=== PATIENT | male | born 1935 | race Caucasian/White ===

== ENCOUNTER → 2017-04-19 | Day surgery (SDC) | payer OTHER ==
[2017-03-10 13:16] VITALS: Ht 177.8 cm; Wt 84.1 kg
[~2017-04-19] VITALS: Ht 177.8 cm; Wt 84.1 kg
[~2017-04-19] MED LIST: 500ML BSS 0.3ML EPI 1:1000PF IRRIG ONE; ACETAMINOPHEN 325 MG TAB PO PRN; AMVISC PLUS 0.8ML SYRINGE INT OCU ONE; ATROPINE SULFATE 0.1 MG/ML 5ML SYR IV PRN; BSS FLUSH ONE; EpHEDrine SULFATE INJ 50 MG/ML AMP IV PRN; EpINEphrine INJ 1MG/ML AMP 1 MG/ML AMP ONE; LACTATED RINGER'S 1000ML 500 ML IV SCH; LIDOCAINE 3.5% OPH GEL PER APPLICATION CHARGE ONE; LIDOCAINE HCL 1% MPF 2 ML VIAL ONE; LISI10TA PO; MIDAZOLAM HCL 1 MG/ML 2ML VIAL ONE; OCUCOAT 1 ML SOLN IO ONE; ONDANSETRON INJ 2 MG/ML 2 ML VIAL IV PRN; PHENYLEPHRINE HCL 10% OP SOLN PER DROP CHARGE OPR SCH; POVIDONE-IODINE OP SOLN 30 ML BTL ONE; PROPARACAINE 0.5% OP SOLN PER DROP CHARGE OPR SCH; TAMS0.4C38 PO; TOBRAMYCIN/DEXAMETHASONE OPH OINT PER APPLN CHARGE ONE
[2017-04-19] MEDS: PHENYLEPHRINE HCL 2.5% OP SOLN PER DROP CHARGE OPR SCH ×2 (10:26→10:31)
[2017-04-19] MEDS: TROPICAMIDE 1% OP SOLN PER DROP CHARGE OPR SCH ×2 (10:27→10:32)
[2017-04-19] MEDS: CYCLOPENTOLATE HCL 1% OP SOLN PER DROP CHARGE OPR SCH ×2 (10:28→10:33)
[2017-04-19] MEDS: KETOROLAC 0.5% OP SOLN PER DROP CHARGE OPR SCH ×2 (10:29→10:34)
[2017-04-19] MEDS: GATIFLOXACIN OP SOLN PER DROP CHARGE OPR SCH ×2 (10:30→10:43)
--- NOTE | 2017-04-19 11:04 | History & Physical Bridge - SC ---
H&P Re-Evaluation Bridge Note: I have examined the patient, reviewed the History & Physical and in the interval since the performance of the History & Physical I have noted the following changes of clinical significance: No changes noted
--- NOTE | 2017-04-19 11:35 | Discharge Instructions-SurgCtr ---
Discharge Instructions Date of Service Apr 19, 2017. Visit Reason for Visit: Cataract Right Eye Discharge Discharge Diagnosis / Problem: cataract Discharge Goals Goal(s): Improve function Medications Stopped Medications Name(s): gabi, last dose over 1 month ago Activity Recommendations Activity Limitations: per Instructions/Follow-up section Anesthesia . Post Anesthesia Instructions: If you have had General Anesthesia or IV Sedation: * Do not drive today. * Resume driving when surgeon permits. * Do not make important decisions or sign legal documents today. * Call surgeon for: 1. Temperature elevations greater than 101 degrees F. 2. Uncontrollable pain. 3. Excessive bleeding. 4. Persistent nausea and vomiting. 5. Medication intolerance (nausea, vomiting or rash). * For nausea and vomiting use only clear liquids such as: tea, soda, bouillon until nausea subsides, then gradually increase diet as tolerated. * If you have any concerns or questions, call your surgeon's office. If physician is unavailable and it is an emergency, call 911 or go to the nearest emergency room. . Diet Recommendations Home Diet: resume previous diet Procedures Procedures Performed: Right Cataract Phacoemulsification With Intraocular Lens Implant Pending Studies Studies pending at discharge: no Medical Emergencies . Who to Call and When: Medical Emergencies: If at any time you feel your situation is an emergency, please call 911 immediately. . Non-Emergent Contact Non-Emergency issues call your: Cloth Washer . . "Provider Documentation" section prepared by Stu Sorto. .
--- NOTE | 2017-04-19 11:35 | [facility] Operative Report ---
Operative Report Date of Service Apr 19, 2017. Operative Report 1. PREOPERATIVE DIAGNOSIS: Cataract of the right eye. 2. POSTOPERATIVE DIAGNOSIS: Same. 3. PROCEDURE: Phacoemulsification with intraocular lens implantation of the right eye. SURGEON: Dr. Stu Sorto. ANESTHESIA: Topical Lidocaine gel, 1% Non- Preserved intracameral Lidocaine, and monitored intravenous sedation. INDICATIONS FOR THE PROCEDURE: The patient is a 81 - year-old male with a history of cataract of the right eye causing significant visual impairment. The details of the proposed procedure were explained to the patient who asked appropriate questions and following discussion of all risks, benefits and alternatives agreed to have the procedure done. 4. OPERATION AND FINDINGS: DESCRIPTION OF PROCEDURE: After informed consent was obtained, the patient was brought to the Operating Room at the [facility]. The patient was placed in a supine position and then the right eye was prepped and draped in the usual sterile fashion for intraocular surgery. A drop of topical Lidocaine gel was placed in the operative eye. A wire lid speculum was then placed in the fornices. A corneal paracentesis was then created temporally. The Non-Preserved Lidocaine was then instilled into the anterior chamber. The anterior chamber was then pressurized with viscoelastic. A 2.0 mm clear corneal incision was then created temporally. A cystotome was inserted into the anterior chamber and used to create a tear in the anterior lens capsule. This capsular tear was then used to create a small flap and the flap was dragged in a counterclockwise direction in order to create a continuous curvilinear capsulorrhexis. Hydrodissection was accomplished with balanced salt solution. Phacoemulsification of the lens nucleus was then performed in a standard [id number] technique. The phaco time was 33 seconds with an average power of 12 %. The remaining cortical material was removed using irrigation aspiration. The capsular bag was then filled with viscoelastic. A [employer]ch [employer] Lomb MI60L +18.5 diopters lens was then loaded into the injector and injected into the capsular bag. The remaining viscoelastic was removed with the irrigation aspiration handpiece. The wound was hydrated and then checked and found to be watertight. The intraocular pressure was checked and found to be adequate. The wire lid speculum was removed and the patient's face was cleaned and dried. TobraDex ointment was placed in the inferior fornix. The patient was discharged to the Recovery Room having tolerated the procedure well. There were no complications. The patient will be seen tomorrow in the office for follow-up. I attest to the content of the Intraoperative Record and any orders documented therein. Any exceptions are noted below.
[2017-04-19 11:36] VITALS: TEMP 36.8
--- NOTE | 2017-04-19 11:49 | Anesthesia Progress Nt - [facility] ---
Anesthesia Post Op Note Date & Time Apr 19, 2017 at 11:49 Vital Signs Pain Intensity: 0 Vital Signs Past 12 Hours Date Time Temp Pulse Resp B/P (MAP) Pulse Ox O2 Delivery O2 Flow Rate FiO2 04/19/17 11:36 36.8 72 18 145/81 (102) 96 Room Air 04/19/17 10:17 36.6 65 16 155/86 (109) 95 Room Air Notes Mental Status: alert / awake / arousable, participated in evaluation Pt Amnestic to Procedure: Yes Nausea / Vomiting: adequately controlled Pain: adequately controlled Airway Patency, RR, SpO2: stable & adequate BP & HR: stable & adequate Hydration State: stable & adequate Anesthetic Complications: no major complications apparent
[2017-04-19 11:53] VITALS: BP 135/84; PULSE 76; O2SAT 95
== END | disposition home or self-care (01) ==
LOC: X.SURG 09:43
PROVIDERS: ATTEND Ophthalmology
DX: H26.9 Unspecified cataract (principal); I10 Essential (primary) hypertension; M19.90 Unspecified osteoarthritis, unspecified site; Z98.42 Cataract extraction status, left eye; Z98.890 Other specified postprocedural states; Z90.89 Acquired absence of other organs; Z80.0 Family history of malignant neoplasm of digestive organs

== ENCOUNTER 2017-09-28 04:18 | Emergency (ER) | payer OTHER ==
[~2017-09-28] VITALS: Ht 177.8 cm; Wt 83.9 kg
[~2017-09-28 04:18] MED LIST changes: -500ML BSS 0.3ML EPI 1:1000PF IRRIG ONE; -ACETAMINOPHEN 325 MG TAB PO PRN; -AMVISC PLUS 0.8ML SYRINGE INT OCU ONE; -ATROPINE SULFATE 0.1 MG/ML 5ML SYR IV PRN; -BSS FLUSH ONE; -EpHEDrine SULFATE INJ 50 MG/ML AMP IV PRN; -EpINEphrine INJ 1MG/ML AMP 1 MG/ML AMP ONE; -LACTATED RINGER'S 1000ML 500 ML IV SCH; -LIDOCAINE 3.5% OPH GEL PER APPLICATION CHARGE ONE; -LIDOCAINE HCL 1% MPF 2 ML VIAL ONE; -MIDAZOLAM HCL 1 MG/ML 2ML VIAL ONE; -OCUCOAT 1 ML SOLN IO ONE; -ONDANSETRON INJ 2 MG/ML 2 ML VIAL IV PRN; -PHENYLEPHRINE HCL 10% OP SOLN PER DROP CHARGE OPR SCH; -POVIDONE-IODINE OP SOLN 30 ML BTL ONE; -PROPARACAINE 0.5% OP SOLN PER DROP CHARGE OPR SCH; -TAMS0.4C38 PO; -TOBRAMYCIN/DEXAMETHASONE OPH OINT PER APPLN CHARGE ONE
[2017-09-28 04:20] VITALS: TEMP 36.3; Ht 177.8 cm; Wt 83.9 kg
[2017-09-28] MEDS ORDERED: TAMS0.4C38 PO (04:55)
[2017-09-28] MEDS ORDERED: GABA-113 PO (04:55)
--- NOTE | 2017-09-28 05:02 | EMERGENCY ROOM VISIT NOTE ---
History Report prepared by Edil: Davon Baxter Under the Supervision of: Dr. Vaishnavi Castro D.O. First contact with patient: 04:26 Chief Complaint: FALL Stated Complaint: FALL-LACERATION ON FOREHEAD History of Present Illness The patient is an 82 year old male who presents to the Emergency Room with complaints of a fall that occurred 4.5 hours ago. The patient states he fell and hit his forehead on the ground. He reports he now has a large, constant, hematoma to his forehead. The patient notes he was drinking scotch and water while taking his medications. He reports he was walking through his house and tripped on a t-shirt. He states he drinks scotch daily and would not consider himself to be an alcoholic. The patient reports he lost consciousness for 4 hours. He notes he drove himself to the ED after waking up. The patient states he did not consider calling an ambulance. He reports he could taste blood in his mouth. The patient notes his last tetanus shot was within 10 years. He denies taking blood thinners and abdominal pain. Source of History: patient Onset: 4.5 hours ago Position: head Quality: other (hemtoma) Timing: constant Associated Symptoms: + LOC Note: Associated symptoms: taste of blood in his mouth Review of Systems See HPI for pertinent positives & negatives. A total of 10 systems reviewed and were otherwise negative. Past Medical & Surgical Medical Problems: (1) Calculus Of Kidney (2) Diverticulosis Colon (W/O Ment Of Hemorrhage) (3) Hypertension (4) Spinal Stenosis Nos Family History Patient reports no known family medical history. Social History Smoking Status: Former Smoker Alcohol Use: none Marital Status: Housing Status: lives with family Occupation Status: retired Current/Historical Medications Scheduled Gabapentin (Neurontin), 300 MG PO TID Tamsulosin Hcl (Flomax), 0.4 MG PO DAILY Scheduled PRN Lisinopril (Prinivil), 10 MG PO QAM PRN for Hypertension Allergies Coded Allergies: Meloxicam (Verified Allergy, Unknown, RASH, 09/28/17) Physical Exam Vital Signs Date Time Temp Pulse Resp B/P (MAP) Pulse Ox O2 Delivery O2 Flow Rate FiO2 09/28/17 07:54 64 16 158/92 95 09/28/17 05:10 67 18 141/79 95 Room Air 09/28/17 04:20 36.3 73 20 172/72 92 Room Air Physical Exam HEENT: Head - normocephalic and an obvious, large hematoma to the right of the midline with a linear 2.5 cm laceration on the forehead. Pupils are equal, round , and reactive to light. Extraocular eye muscles are intact and sclera are injected bilaterally. Periorbital ecchymosis on the right. Ears - bilaterally patent canals with no evidence of hemotympanum. Nose - moist nasal mucosa with dried blood in both naris. Mouth - moist buccal mucosa with dried blood in it. No trauma to the teeth or signs of malocclusion. Neck: The neck is supple and there is no pain to palpation over the posterior cervical spine and no obvious step-offs or deformities. There is no JVD or tracheal deviation. Chest: There are no signs of deformities, contusions or abrasions to the chest wall. There is no obvious crepitus or paradoxical chest rise. Heart: Regular, rate, and rhythm. There is a normal S1 and S2 with no murmurs, clicks, or gallops appreciated. Lungs: Clear to auscultation bilaterally with no wheezes, rales, or rhonchi. Abdomen: Soft, completely nontender, nondistended, with good bowel sounds. There is no sign of trauma such as contusions, abrasions or penetrations. There are no palpable pulsatile masses or hepatosplenomegaly. There is no guarding, rigidity, or rebound noted. Pelvis: Stable to rock and compression. Extremities: Left elbow has two large skin tears. Right elbow has a minor abrasion. No edema. There are easily palpable peripheral pulses. Neuro: The patient is awake and alert and easily able to follow commands. Muscle strength is 5 out of 5 in all 4 extremities. Otherwise, neuro exam is unremarkable. Back: The entire thoracic, lumbar, and sacral spine were palpated. There are no obvious step-offs or deformities noted. There are no obvious signs of trauma such as contusions abrasions penetrations noted to the back. Medical Decision & Procedures ER Provider Diagnostic Interpretation: Radiology results as stated below per my review and the radiologist's interpretation: CT HEAD: No acute intracranial hemorrhage or mass effect. Frontal scalp hematoma. No skull fracture. Severe white matter hypodensities, most likely representing small vessel ischemic change. Global cerebral volume loss. CT FACIAL: No evidence of acute fracture. Asymmetric anterior subluxation of left mandibular condyle. Correlate for fixed anterior subluxation/TMJ dysfunction. Moderate mucosal thickening right maxillary sinus. Associated internal hyperdensity suggesting chronic sinusitis. CT C SPINE: No evidence of fracture or malalignment. Mild to moderate degenerative changes. Radiologist: Dominic Fournier MD Study ready at 0593 and initial results transmitted at 0523. Laboratory Results 09/28/17 05:10 09/28/17 05:10 Test 09/28/17 05:10 Red Blood Count 4.88 M/uL (4.7-6.1) Mean Corpuscular Volume 96.7 fL (80-100) Mean Corpuscular Hemoglobin 34.6 pg (25-34) Mean Corpuscular Hemoglobin Concent 35.8 g/dl (32-36) RDW Standard Deviation 46.9 fL (36.4-46.3) RDW Coefficient of Variation 13.3 % (11.5-14.5) Mean Platelet Volume 9.8 fL (7.4-10.4) Anion Gap 12.0 mmol/L (3-11) Est Creatinine Clear Calc Drug Dose 81.9 ml/min Estimated GFR () 100.8 Estimated GFR (Non- 87.0 BUN/Creatinine Ratio 13.9 (10-20) Calcium Level 8.7 mg/dl (8.5-10.1) Ethyl Alcohol mg/dL 79.0 mg/dl (0-3) Laboratory results per my review. Medications Administered Medications (Trade) Dose Ordered Sig/Carla Route Start Time Stop Time Status Last Admin Dose Admin Diphtheria/ Pertussis/Tetanus Vacc (Adacel Inj) 0.5 ml ONCE ONCE IM. 09/28/17 06:00 09/28/17 06:01 DC 09/28/17 06:18 0.5 ML Procedure 0515: Ordered Lidocaine HCl 20ml INFIL 0600: Ordered Diphtheria/Pertussis/Tetanus Vacc 0.5 ml IM ECG Per My Interpretation Indication: other (fall) Rate (beats per minute): 61 Rhythm: normal sinus Findings: PAC, no acute ischemic change, no ectopy ED Course 0441: Past medical records reviewed. The patient was evaluated in room A10. A complete history and physical exam was performed. A 12-lead EKG was obtained. The patient went for CT scan of the brain, cervical spine, and facial bones as described above. 0515: Ordered Lidocaine HCl 20ml INFIL 0600: Ordered Diphtheria/Pertussis/Tetanus Vacc 0.5 ml IM 0624: I reevaluated the patient. I discussed findings and results with him. 0700: The laceration repair was completed by Alize Lassiter PA-C. Please refer to her procedure note for more information. 0711: Upon reevaluation, the laceration repair is complete. I discussed findings and results with him. He verbalized agreement of the treatment plan. The patient was discharged home. Medical Decision The patient is an 82 year old male who presents to the ED with a forehead hematoma. Differential diagnosis includes skull fracture, facial bone fracture, intracranial trauma, c-spine injury, alcohol intoxication, closed head injury. Lab results show: alcohol of 79, normal renal function and glucose, normal WBC, stable H&H. This is an elderly 82-year-old male patient who presents to the emergency department with trauma to his head and face. The patient was intoxicated tonight when he fell and potentially laid unresponsive for greater than 3 hours. The patient then drove himself here to the emergency department. CT scan of the brain, facial bones and cervical spine shows no acute fractures. The the skin tears on the elbows were cleansed and dressed with sterile dressings. The wound on the forehead was repaired by Alize Lassiter PA-C. Please see her dictation for full details of the procedure. Head Trauma GCS Score: 15 Medication Reconcilliation Current Medication List: was personally reviewed by me Blood Pressure Screening Patient's blood pressure: Normal blood pressure Blood pressure disposition: Did not require urgent referral Impression Primary Impression: Facial trauma Additional Impression: Alcohol intoxication Scribe Attestation The scribe's documentation has been prepared under my direction and personally reviewed by me in its entirety. I confirm that the note above accurately reflects all work, treatment, procedures, and medical decision making performed by me. Departure Information Dispostion Home / Self-Care Referrals Iván Sethi D.O. (PCP) Forms HOME CARE DOCUMENTATION FORM, IMPORTANT VISIT INFORMATION Patient Instructions Alcohol Intoxication - [facility], ED Laceration Facial Sutr Tape, My [facility] Additional Instructions Rest with your head elevated. Keep wound clean with soap and water. Cover with antibiotic ointment Have sutures removed in 5-7 days. Apply ice to forehead Problem Qualifiers Primary Impression: Facial trauma Encounter type: initial encounter Qualified Codes: S09.93XA - Unspecified injury of face, initial encounter Additional Impression: Alcohol intoxication Complication of substance-induced condition: uncomplicated Qualified Codes: F10.920 - Alcohol use, unspecified with intoxication, uncomplicated
[2017-09-28] MEDS ORDERED: XYLOCAINE 1%/SOD BICARB 20 ML VIAL INFIL ONE (05:15)
[2017-09-28 05:19] LABS: HEMATOCRIT 47.2 % (42-52); HEMOGLOBIN 16.9 g/dL (14.0-18.0); MEAN CELL VOLUME 96.7 fL (80-100); MEAN CORPUSCULAR HEMOGLOBIN 34.6 pg (25-34); MEAN CORPUSCULAR HGB CONC 35.8 g/dl (32-36); MEAN PLATELET VOLUME 9.8 fL (7.4-10.4); PLATELET COUNT 165 K/uL (130-400); RED CELL DISTRIBUTION WIDTH CV 13.3 % (11.5-14.5); RED CELL DISTRIBUTION WIDTH SD 46.9 fL (36.4-46.3); WHITE BLOOD COUNT 10.11 K/uL (4.8-10.8)
[2017-09-28 05:37] LABS: CALCIUM 8.7 mg/dl (8.5-10.1); CREATININE 0.73 mg/dl (0.60-1.40); POTASSIUM 3.5 mmol/L (3.5-5.1)
[2017-09-28] MEDS ORDERED: DIPHTHERIA/TETANUS/PERTUSSIS 0.5 ML SYR/VIAL IM. ONE (06:00)
--- NOTE | 2017-09-28 06:29 | DIAGNOSTIC IMAGING REPORT ---
CT HEAD WITHOUT CONTRAST (CT) CLINICAL HISTORY: Head pain status post trauma COMPARISON STUDY: No previous studies for comparison. TECHNIQUE: Axial CT of the brain is performed from the vertex to the skull base. IV contrast was not administered for this examination. A dose lowering technique was utilized adhering to the principles of ALARA. CT DOSE: FINDINGS: No intra or extra-axial mass lesions are visualized. There is no CT evidence of acute cortical infarction. There is no evidence of midline shift. There is no acute hemorrhage. No calvarial fractures are visualized. There are extensive white matter hypodensities likely on a small vessel basis. There is no evidence of pathologic ventricular dilatation. There is right maxillary sinus mucosal thickening. There is a frontal scalp hematoma. IMPRESSION: 1. No evidence of acute intracranial injury 2. Frontal scalp hematoma 3. Extensive periventricular white matter hypodensities, likely on a small vessel basis Electronically signed by: Zion Avelar M.D. 09/28/2017 6:28 AM Dictated Date/Time: 09/28/2017 6:27 AM
--- NOTE | 2017-09-28 06:39 | DIAGNOSTIC IMAGING REPORT ---
CERVICAL SPINE W/O CT DOSE: HISTORY: Trauma. Pain. trauma TECHNIQUE: Multiaxial CT images of the cervical spine were performed and reformatted in the sagittal and coronal plane without the use of contrast. A dose lowering technique was utilized adhering to the principles of ALARA. COMPARISON: None. FINDINGS: No fractures. No subluxation. Prevertebral soft tissues and the C1-C2 interval are intact. No pneumothorax. Moderate degenerative change IMPRESSION: No fractures within the cervical spine. Moderate degenerative change The above report was generated using voice recognition software. It may contain grammatical, syntax or spelling errors. Electronically signed by: Yannick Art M.D. 09/28/2017 6:38 AM Dictated Date/Time: 09/28/2017 6:35 AM
--- NOTE | 2017-09-28 07:42 | EMERGENCY ROOM VISIT NOTE ---
ED Visit Note I was asked by Dr. Castro to repair the laceration on this patient's forehead. The laceration was approximately 2.5 cm in length and the vertical plane in the center of the forehead, just medial to the right eyebrow. Verbal consent was obtained to perform the procedure. Using sterile technique the wound was cleaned with Betadine. The area was sterilely draped. 5 ml of 1 % buffered lidocaine was used to anesthetize the wound on the forehead. Once the patient was anesthetized, the wound was copiously irrigated under pressure with sterile saline. The wound was explored and there were no deep structures injured such as tendons, bone, or significant blood vessels. The laceration was repaired using 8 simple interrupted 5-0 nylon sutures with the wound edges being well approximated. The patient tolerated the procedure well. Hemostasis was achieved. The area was cleaned with sterile saline and dressed with bacitracin ointment and bandage. The patient was discharged home in good condition.
--- NOTE | 2017-09-28 07:49 | DIAGNOSTIC IMAGING REPORT ---
FACIAL BONES-MXILLOFAC WITHOUT CLINICAL HISTORY: 82 years-old Male presenting with trauma, fall, head injury. TECHNIQUE: Multidetector CT of the face was performed without the use of intravenous contrast. IV contrast: None. A dose lowering technique was used consistent with the principles of ALARA (as low as reasonably achievable). COMPARISON: None. CT DOSE (mGy.cm): The estimated cumulative dose is 1092.99 mGy.cm. FINDINGS: Work Order Detailer topogram: Unremarkable. Superficial soft tissue contusion and irregularity in the frontal region with a small subgaleal hematoma suggested. No subjacent osseous injury. Mucosal thickening of the right maxillary sinus with subtle asymmetric sclerosis of the right maxillary sinus garrido suggesting chronic sinusitis. Furthermore, there is calcification within the debris in the right maxillary sinus further suggesting chronic sinusitis. Remainder of paranasal sinuses and mastoid air cells clear. Slight anterior subluxation of the left ventricular condyle. No evidence of a mandibular fracture. Teeth intact. Maxillary teeth are absent. Upper cervical spine normal. Limited intracranial evaluation demonstrates chronic small vessel ischemic change. IMPRESSION: 1. No acute osseous injury of the face. 2. Superficial soft tissue contusion and laceration in the frontal subcutaneous tissue with a small subgaleal hematoma. 3. Evidence of chronic sinusitis in the right maxillary sinus. 4. Anterior subluxation of the left femoral condyle could suggest temporomandibular joint dysfunction or acute subluxation. No mandibular fracture. Electronically signed by: Lucas Cazares M.D. 09/28/2017 7:47 AM Dictated Date/Time: 09/28/2017 7:00 AM
[2017-09-28 07:54] VITALS: BP 158/92; PULSE 64; O2SAT 95
== END 2017-09-28 07:55 | disposition home or self-care (01) ==
LOC: C.EDB 04:19 → C.EDA 07:55
DX: S06.9X3A Unspecified intracranial injury with loss of consciousness of 1 hour to 5 hours 59 minutes, initial encounter (principal); S00.83XA Contusion of other part of head, initial encounter; S01.81XA Laceration without foreign body of other part of head, initial encounter; S50.311A Abrasion of right elbow, initial encounter; S50.312A Abrasion of left elbow, initial encounter; W19.XXXA Unspecified fall, initial encounter; Y92.89 Other specified places as the place of occurrence of the external cause; F10.920 Alcohol use, unspecified with intoxication, uncomplicated; Z87.891 Personal history of nicotine dependence; I10 Essential (primary) hypertension; Z79.899 Other long term (current) drug therapy

== ENCOUNTER 2018-11-11 02:32 | Inpatient (IN) ==
--- OUTSIDE RECORDS SUMMARY | 2018-11-11 02:35 | External Medical Summary | Continuity of Care Document ---
:1935 Author Name Sohail Driver, Provider Address Unavailable Unavailable , Care Team Providers Name Role Phone Jonathan Gonzalez M.D. Unavailable [email or web address] 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 ISMAEL Zimmerman Start: 29-Mar-2018 Quantity: 90 Refills: 3 Dutasteride 0.5 MG Oral Capsule; TAKE ONE CAPSULE BY M OUTH EVERY DAY Neisha Gonzalez Start: 29-Mar-2018 Quantity: 90 Refills: 3 Procedures History of Appendectomy Status: Complete d History of Tonsillectomy Status: Complet ed History of Hernia Repair Status: Complet ed Immunizations Immunizations not documented Social History - Smoking Status Never smoker Former smoker Plan of Treatment Planned Observations Planned Goals not documented Results No Known Results Results not documented Encounters Appointment; Daniel Monroy DMD 15-Jun-2018 13:45 Encounter Diagnosis: Problem not documented Appointment; Jonathan Gonzalez M.D. 29-Mar-2018 9:30 Encounter Diagnosis: Problem not documented Appointment; Jonathan Gonzalez M.D. 29-Nov-2017 16:40 Encounter Diagnosis: Problem not documented Appointment; Jonathan Gonzalez M.D. 01-Dec-2016 15:00 Encounter Diagnosis: Problem not documented Appointment; Jonathan Gonzalez M.D. 27-Sep-2018 8:20 Encounter Diagnosis: Problem not documented
[2018-11-11] MEDS ORDERED: fentaNYL citrate 100 MCG/2 ML VIAL IV STA ×2 (03:13→04:20)
[2018-11-11] MEDS ORDERED: SODIUM CHLORIDE 0.9% 1000ML 500 ML IV ONE (03:13)
[2018-11-11] MEDS ORDERED: ONDANSETRON INJ 2 MG/ML 2 ML VIAL IV STA (03:13)
[2018-11-11 03:26] LABS: Basophils # (auto) 0.01 K/uL (0-0.2); Basophils % (auto) 0.1 %; Hematocrit (blood only) 48.2 % (42-52); Hemoglobin 17.4 g/dL (14.0-18.0); Immature Granulocytes # (auto) 0.05 K/uL (0.00-0.02); Immature Granulocytes % (auto) 0.4 %; Lymphocytes # (auto) 0.13 K/uL (1.2-3.4); Lymphocytes % (auto) 1.1 %; Mean Corpuscular Hgb Conc 36.1 g/dL (32-36); Mean Corpuscular Volume 90.8 fL (80-100); Mean Platelet Volume 9.5 fL (7.4-10.4); Monocytes # (auto) 0.15 K/uL (0.11-0.59); Monocytes % (auto) 1.3 %; Neutrophils # (auto) 11.39 K/uL (1.4-6.5); Neutrophils % (auto) 97.1 %; Platelet Count 182 K/uL (130-400); RDW Coefficient of Variation 14.8 % (11.5-14.5); RDW Standard Deviation 49.6 fL (36.4-46.3); Red Blood Count 5.31 M/uL (4.7-6.1); White Blood Count 11.73 K/uL (4.8-10.8)
[2018-11-11 03:32] LABS: Appearance Urine Cloudy (Clear); Bacteria Urine Automated Negative (Negative); Blood Urine Negative (Negative); Color Urine Orange; Epithelial Cell Urine Auto >30 /lpf (0-5); Glucose Urine UA Negative (Negative); Ketones Urine Trace (Negative); Leukocyte Esterase Urine 1+ (Negative); Nitrite Urine Positive (Negative); Protein Urine Trace (Negative); RBC Urine Automated 0-4 /hpf (0-4); Specific Gravity Urine 1.021 (1.000-1.030); Urobilinogen Urine Positive (Negative)
[2018-11-11 03:35] LABS: Albumin Level 3.9 gm/dl (3.4-5.0); Bilirubin Direct 1.2 mg/dl (0-0.2); Calcium 9.7 mg/dl (8.5-10.1); Est GFR (African American) 86.1; Est GFR (Non-African American) 74.2; Magnesium 1.8 mg/dl (1.8-2.4); Potassium 3.3 mmol/L (3.5-5.1)
[2018-11-11 03:36] LABS: Bilirubin Urine 1+ (Negative)
[2018-11-11 03:37] LABS: Ictotest Urine Positive (Negative)
[2018-11-11 03:51] LABS: Mucus Urine Present (None Prsent)
[2018-11-11 03:56] LABS: Bilirubin,Total 2.4 mg/dl (0.2-1); Total Protein 7.8 gm/dl (6.4-8.2)
[2018-11-11] MEDS ORDERED: IOVERSOL 100ml IV PRN (04:03)
[2018-11-11] MEDS ORDERED: HYDROmorphone INJ 0.5 MG/0.5 ML SYR IV STA (06:47)
[2018-11-11] MEDS ORDERED: ONDANSETRON INJ 2 MG/ML 2 ML VIAL IV PRN (06:51)
[2018-11-11] MEDS ORDERED: POTASSIUM CHLORIDE 20 MEQ TABCR PO STA (06:54)
[2018-11-11] MEDS: LACTATED RINGER'S 1,000 ML IV SCH ×3 (07:25→19:45)
--- NOTE | 2018-11-11 07:50 | History and Physical Report ---
DATE OF ADMISSION: 11/11/2018 CHIEF COMPLAINT: Abdominal pain. HISTORY OF PRESENT ILLNESS: This is an 83-year-old male with past medical history significant for hypertension, aortic valve sclerosis, BPH, degenerative disk disease, bilateral leg edema, postherpetic neuralgia, history of tobacco abuse, presents with abdominal pain. The pain started after eating his dinner in epigastric region, moderate to severe in nature associated with nausea, no vomiting, no diarrhea or constipation. Not chest pain, no shortness of breath, no cough, no fever, no chills, no headaches. Currently, the pain is improved with the pain medication, resting comfortably. ALLERGIES: GABAPENTIN, MELOXICAM. PAST MEDICAL HISTORY: As mentioned above. PAST SURGICAL HISTORY: Appendectomy, carpal tunnel surgery, colonoscopy, EGDs, lumbar spine shots, laparoscopic inguinal hernia repair, tonsillectomy, cataract surgery. The patient says he also has cholecystectomy. MEDICATIONS: Hydrochlorothiazide 12.5 mg p.o. daily, naproxen 250 mg p.o. daily p.r.n., Lasix 20 mg p.o. daily p.r.n., Tylenol 1000 mg p.o. 8 hours p.r.n., Flomax 0.4 mg p.o. daily. FAMILY HISTORY: Significant for: Mother had cancer. SOCIAL HISTORY: and lives with his . Former smoker. Alcohol, a glass of wine or scotch at dinnertime. No drug use. REVIEW OF SYMPTOMS: As per HPI. Rest of review of systems is negative. PHYSICAL EXAMINATION: GENERAL: The patient is of moderate build, not in acute distress. VITAL SIGNS: Temperature 37, pulse 79, respiratory rate 16, blood pressure 128/68, oxygen 95% room air. HEENT: No pallor, no icterus. Pupils equal, round, and reactive to light. NECK: No JVD, no neck masses, no carotid bruits. CARDIOVASCULAR: S1, S2 heard, regular rate and rhythm, no murmur, no gallop. RESPIRATORY SYSTEM: Normal AP diameter. No accessory muscle use. No wheezing, no crackles. ABDOMEN: Soft, bowel sounds, somewhat sluggish, diffuse abdominal discomfort. No guarding, no rigidity. CENTRAL NERVOUS SYSTEM: Cranial nerves II-XII grossly intact. Nonfocal. EXTREMITIES: No edema, no erythema. LABORATORY DATA: WBC 11, hemoglobin 17.4, hematocrit 48.2, platelets 182. Sodium 136, potassium 3.3, chloride 101, bicarbonate 29, BUN 18, creatinine 0.9, serum glucose 112, calcium 9.7, magnesium 1.8, total bilirubin 2.4, direct bilirubin 1.2, AST 530, ALT 191, alkaline phosphatase 208, lipase 34,000. Urinalysis positive. CT of the abdomen and pelvis, official reading pending. ASSESSMENT AND PLAN: This is an 83-year-old male who presents with abdominal pain, found to have acute pancreatitis. 1. Acute pancreatitis with elevated lipase. The patient drinks 1 glass of alcohol every day. He says his gallbladder is out. We will follow the official reading of the CAT scan. Elevated LFTs, possible CBD stone. We will get official read of CAT scan and may get MRCP.Will get Ultrasound. Consult GI. We will keep the patient n.p.o., aggressive IV fluids, IV pain meds p.r.n., IV antiemetics p.r.n. Close monitor in the medical floor. 2. Elevated LFTs, could be from alcohol, could be from the CBD stone. We will follow the official reading of the CT of the abdomen and pelvis. May plan to get MRCP of the abdomen and pelvis, await GI input. 2. Urinary tract infection. We will start on Rocephin. Follow the cultures. 3. Benign prostatic hypertrophy. Continue Flomax. 4. Hypertension. Continue hydrochlorothiazide with holding parameters. 5. Lower extremity edema, on Lasix p.r.n., which we will hold. The patient is on fluids. We will monitor for any volume overload. 6. Ambulatory dysfunction, degenerative disk disease. PT and OT when patient is more stable. 7. Deep venous thrombosis prophylaxis, SCDs for now. 8. Disposition: Close monitor in medical floor. Level 1 full code. MTDD
--- NOTE | 2018-11-11 08:21 | Emergency Department Note ---
Entered by Aníbal Greenberg acting as a scribe for ED Provider Note Name: Kole Melo Age: 83 Arrives Via: Private vehicle Informant: Patient CC: Abdominal pain HPI: A male arrives for evaluation of constant abdominal pain starting 7 hours ago. The patient states he has nausea. He notes he tried to vomit and produce a bowel movement but was unable to do either. He states he is urinating fine. He notes he took Tylenol but that did not do anything. He states he has pain when he breathes in. He notes he fell a few days ago but states he did not hit his head. He states he had a hernia removal surgery on the right side of his groin 30 years ago. He denies diarrhea, fevers, and taking any blood thinners. No recent NSAID use. Previous Gallbladder out. ROS: See above HPI for pertinent positives & negatives. A total of 10 systems reviewed and were otherwise negative. Past Medical History: DDD, BPH, hypertension Past Surgical History: Appendectomy, cholecystectomy. Family History: Family history non-contributory. Social History: drinks 2-4 oz bourbon daily. Home Medications: Acetaminophen, naproxen, tamsulosin Allergies Meloxicam Physical: Vitals: BP: 143/71. P: 105. R: 20. T: 98.6. O2: 99 Exam: GENERAL: Patient is very uncomfortable appearing and in moderate distress. EYES: No scleral icterus, unremarkable pupils. ENT: Mucous membranes are dry, no nasal congestion. NECK: No masses appreciated, no meningismus, trachea is midline. RESPIRATORY: No dyspnea. Clear to auscultation and equal bilaterally. No wheeze, no rhonchi. CARDIOVASCULAR: Tachycardic rate and regular rhythm. No murmurs, rubs, gallops appreciated. GASTROINTESTINAL: Abdomen soft, no peritonitis. Bowel sounds positive. No masses appreciated. Suprapubic and RUQ tenderness to palpation. BACK: No midline tenderness, no CVA tenderness EXTREMITIES: Normal motion all extremities, no cyanosis, no edema. NEUROLOGIC: Alert and oriented, no acute motor or sensory deficits, no focal weakness, cranial nerves grossly intact. SKIN: No rash, no jaundice, no diaphoresis. ED Course: Prior Medical Record, Triage/Nursing Notes, Medications, Allergies reviewed by Me Vital Signs: reviewed and remarkable for tachy Labs: Reviewed and remarkable for ++lipase Interventions: Saline Lock, Fentanyl 50mcg IV x 2, NSS bolus Imaging: [facility] Radiologist interpretation reviewed by me: "ADDENDUM - Added by Hugo Yap M.D. on 11/11/2018 4:40 AM (-07:00) Acute pancreatitis with no pseudocyst. No pancreatic necrosis. No other complications. Additional finding of small hiatal hernia. CT ABDOMEN & PELVIS With Contrast: Extensive diverticulosis but no acute diverticulitis. No colitis, appendicitis or bowel obstruction. No abscess. Prior cholecystectomy with expected biliary ectasia. No free air or free fluid. Multiple relatively large rounded bladder calculi. No bladder wall thickening. Bladder is not completely distended. No hydroureteronephrosis. No other evidence for obstructive uropathy. Prominent prostate with calcifications centrally. Correlate PSA levels. Radiologist: Hugo Yap M.D." Consults: 0503: I consulted with Dr. Killian regarding this patient. He will evaluate the patient for further management. Reassessments/Times: 0305: The patient was evaluated in room B10, and a complete history and physical examination were performed. 0400: I reevaluated the patient. He is now on his way to CAT scan. 0420: I reevaluated the patient. His pain mildly improved. He is requesting more pain medication. He is mildly hypoxic but is alert and oriented. 0441: I reviewed the CT scan with [facility] who noted uncomplicated pancreatitis. Blood pressure: Normal. No Referral necessary Disposition: Hospitalization Differentials: Differential: Appendicitis, Diverticulitis, PUD/Gastritis, Biliary Pathology, UTI, Pyelonephritis, Renal Colic, Bowel Obstruction, Aortic Pathology, Acute Coronary Syndrome, amongst other pathologies entertained. Medical Decision Making: Pleasant 83 male arrives with diffuse lower abdominal pain though exam with upper abdominal TTP. Uncomfortable and given IV narcotics with modest improvement in his pain. Labs with significant elevation of Lipase. Sent to CT which reveals acute uncomplicated pancreatitis. Otherwise stable. Fluids given. Hospitalist consulted for further management. Likely ETOH as cause though will need further work-up given lft elevations. Impression: Acute Pancreatitis Dominic Rodríguez MD The scribe's documentation has been prepared under my direction and personally reviewed by me in its entirety. I confirm that the note above accurately reflects all work, treatment, procedures, and medical decision making performed by me. Impression & Plan Acute pancreatitis Past Med/Surg History Medical History DDD (degenerative disc disease) BPH (benign prostatic hyperplasia) Carpal tunnel syndrome on both sides History of hypertension "NOT AN ISSUE" SINCE WEIGHT LOSS Osteoarthritis Spinal stenosis B/L LE RADICULOPATHY Social History Preferred Language: Turkish Communication Ability: Effective Beliefs That Will Affect Care: None Current Living Situation: Spouse Other Information That Helps Us Care for You: No Feels Safe at Home: Yes Safety Concerns: Feels Safe At This Time Smoking Status: Former smoker Tobacco Type: cigarettes Cigarettes Per Day: SMOKED 1/2PPD X ~30-40 YEARS Second Hand Exposure: No Hx Alcohol Use: Yes Alcohol type: hard liquor Hx Substance Use: No Results & Data Vital Signs Vital Signs - 24 hr 11/11/18 02:36 11/11/18 04:18 11/11/18 04:29 Temperature 37 C Temperature Source Oral Sepsis Recent Fever Within 48 Hours No Sepsis Action Taken by Nursing No Action Required Pulse Rate 105 H Pulse Rate [Left Apical] Pulse Rate [Left Finger] Pulse Rate [Right Finger] 97 H 79 Pulse Rhythm [Left Apical] Pulse Strength [Left Apical] Respiratory Rate 20 18 16 Respiratory Effort / Characteristics Non-Labored Non-Labored Respiratory Depth Normal Normal Respiratory Pattern Regular Blood Pressure 143/71 H Blood Pressure [Left Arm] 132/77 128/68 Blood Pressure [Right Arm] Blood Pressure Mean 95 Blood Pressure Mean [Left Arm] 95 88 Blood Pressure Mean [Right Arm] Blood Pressure Position Sitting Blood Pressure Position [Left Arm] Sitting Blood Pressure Position [Right Arm] Pulse Oximetry 99 92 95 Oxygen Delivery Method Room Air Room Air Room Air Oxygen Flow Rate 11/11/18 06:20 11/11/18 06:33 11/11/18 07:28 Temperature 36.8 C Temperature Source Oral Sepsis Recent Fever Within 48 Hours Sepsis Action Taken by Nursing Pulse Rate 89 Pulse Rate [Left Apical] Pulse Rate [Left Finger] 93 H Pulse Rate [Right Finger] Pulse Rhythm [Left Apical] Pulse Strength [Left Apical] Respiratory Rate 16 14 Respiratory Effort / Characteristics Non-Labored Spontaneous Respiratory Depth Normal Respiratory Pattern Regular Blood Pressure 126/69 Blood Pressure [Left Arm] Blood Pressure [Right Arm] 123/73 Blood Pressure Mean Blood Pressure Mean [Left Arm] Blood Pressure Mean [Right Arm] 89 Blood Pressure Position Blood Pressure Position [Left Arm] Blood Pressure Position [Right Arm] Lying Pulse Oximetry 99 94 Oxygen Delivery Method Room Air Nasal Cannula Nasal Cannula Oxygen Flow Rate 2 2 11/11/18 07:45 Temperature 36.4 C L Temperature Source Oral Sepsis Recent Fever Within 48 Hours Sepsis Action Taken by Nursing Pulse Rate Pulse Rate [Left Apical] 90 Pulse Rate [Left Finger] Pulse Rate [Right Finger] Pulse Rhythm [Left Apical] Regular Pulse Strength [Left Apical] Normal Respiratory Rate 15 Respiratory Effort / Characteristics Non-Labored Spontaneous Respiratory Depth Normal Respiratory Pattern Regular Blood Pressure Blood Pressure [Left Arm] 130/70 Blood Pressure [Right Arm] Blood Pressure Mean Blood Pressure Mean [Left Arm] 90 Blood Pressure Mean [Right Arm] Blood Pressure Position Blood Pressure Position [Left Arm] Semi-fowlers Blood Pressure Position [Right Arm] Pulse Oximetry 94 Oxygen Delivery Method Nasal Cannula Oxygen Flow Rate 2 Laboratory Data Result diagrams: 11/11/18 02:57 11/11/18 02:57 Lab Results 11/11/18 11/11/18 11/11/18 Range/Units 02:57 02:57 02:57 WBC 11.73 H (4.8-10.8) K/uL RBC 5.31 (4.7-6.1) M/uL Hgb 17.4 (14.0-18.0) g/dL Hct 48.2 (42-52) % MCV 90.8 (80-100) fL MCH 32.8 (25-34) pg MCHC 36.1 H (32-36) g/dL RDW Std Deviation 49.6 H (36.4-46.3) fL RDW Coeff of Jocelyn 14.8 H (11.5-14.5) % Plt Count 182 (130-400) K/uL MPV 9.5 (7.4-10.4) fL Immature Gran % (Auto) 0.4 % Neut % (Auto) 97.1 % Lymph % (Auto) 1.1 % [place] % (Auto) 1.3 % Eos % (Auto) 0.0 % Baso % (Auto) 0.1 % Immature Gran # (Auto) 0.05 H (0.00-0.02) K/uL Neut # (Auto) 11.39 H (1.4-6.5) K/uL Lymph # (Auto) 0.13 L (1.2-3.4) K/uL [place] # (Auto) 0.15 (0.11-0.59) K/uL Eos # (Auto) 0.00 (0-0.5) K/uL Baso # (Auto) 0.01 (0-0.2) K/uL Sodium 136 (136-145) mmol/L Potassium 3.3 L (3.5-5.1) mmol/L Chloride 101 (98-107) mmol/L Carbon Dioxide 29 (21-32) mmol/L Anion Gap 6.0 (3-11) BUN 18 (7-18) mg/dl Creatinine 0.95 (0.6-1.4) mg/dl Est Cr Clr Drug Dosing 60.0 ml/min Est GFR ( Amer) 86.1 Est GFR (Non-Af Amer) 74.2 BUN/Creatinine Ratio 19.0 (10-20) Glucose 112 H (70-99) mg/dl Calcium 9.7 (8.5-10.1) mg/dl Magnesium 1.8 (1.8-2.4) mg/dl Total Bilirubin 2.4 H (0.2-1) mg/dl Direct Bilirubin 1.2 H (0-0.2) mg/dl AST 530 H (15-37) U/L ALT 191 H (12-78) U/L Alkaline Phosphatase 208 H (45-117) U/L Total Protein 7.8 (6.4-8.2) gm/dl Albumin 3.9 (3.4-5.0) gm/dl Lipase 18657 H (73-393) U/L Urine Color [place] Urine Appearance Cloudy A (Clear) Urine pH 5.0 (4.5-7.5) Ur Specific [place] 1.021 (1.000-1.030) Urine Protein Trace H (Negative) Urine Glucose (UA) Negative (Negative) Urine Ketones Trace H (Negative) Urine Blood Negative (Negative) Urine Nitrite Positive A (Negative) Urine Bilirubin 1+ H (Negative) Urine Urobilinogen Positive H (Negative) Ur Leukocyte Esterase 1+ H (Negative) Urine WBC (Auto) 5-10 H (0-5) /hpf Urine RBC (Auto) 0-4 (0-4) /hpf U Hyaline Cast (Auto) 1-5 (0-5) /lpf U Epithel Cells (Auto) >30 H (0-5) /lpf Urine Bacteria (Auto) Negative (Negative) Ur Renal Epithelial Cell 5-10 H (0-5) /lpf Urine Mucus Present A (None Prsent) Administered Medications Lactated Ringer's (Lr) 1,000 mls @ 200 mls/hr IV .Q5H [place] Stop: 12/11/18 06:50 Last Admin: 11/11/18 07:25 Dose: 200 mls/hr Documented by: [id number] Discontinued Medications Fentanyl Citrate (Fentanyl Citrate) 50 mcg IV NOW STA Stop: 11/11/18 03:14 Last Admin: 11/11/18 03:51 Dose: 50 mcg Documented by: [id number] Fentanyl Citrate (Fentanyl Citrate) 50 mcg IV NOW STA Stop: 11/11/18 04:21 Last Admin: 11/11/18 04:25 Dose: 50 mcg Documented by: [id number] Hydromorphone HCl (Dilaudid) 0.5 mg IV NOW STA Stop: 11/11/18 06:48 Last Admin: 11/11/18 07:25 Dose: 0.5 mg Documented by: [id number] Sodium Chloride (Nss 1000ml) 500 mls @ 999 mls/hr IV .Q31M ONE Stop: 11/11/18 03:43 Last Admin: 11/11/18 03:52 Dose: 999 mls/hr Documented by: [id number] Ioversol (Optiray 320 100ml) 94 ml IV ONCE PRN PRN Reason: Interaction Checking Stop: 11/15/18 04:02 Last Admin: 11/11/18 04:03 Dose: 94 ml Documented by: [id number] Ondansetron HCl (Zofran) 4 mg IV NOW STA Stop: 11/11/18 03:14 Last Admin: 11/11/18 03:52 Dose: 4 mg Documented by: [id number] Discharge Plan Visit Data *Final* Discharge Date/Time: 11/11/18 06:20 Chief Complaint: Abdominal Pain Stated Complaint: ABD PAIN ED Provider: Dominic Rodríguez Discharge Problem: Acute pancreatitis Patient Disposition: Admitted As Inpatient Discharge Instructions Interventions: ED Discharge Assessment Last Done: 11/11/18 06:20 Discharge Problem: Acute pancreatitis Qualifiers: Pancreatitis type: alcohol induced Acute pancreatitis complication: no infection or necrosis Qualified Code(s): K85.20 - Alcohol induced acute pancreatitis without necrosis or infection The scribe's documentation has been prepared under my direction and personally r eviewed by me in its entirety. I confirm that the note above accurately reflects all work, treatment, procedures, and medical decision making performed by me.
[2018-11-11] MEDS ORDERED: hydroCHLOROthiazide 25 MG TAB PO SCH (09:00)
--- NOTE | 2018-11-11 09:03 | CT Scan Report ---
CT OF THE ABDOMEN AND PELVIS WITH CONTRAST CLINICAL HISTORY: diffuse lower abdominal pain COMPARISON STUDY: None. TECHNIQUE: Following IV administration of 94 mL of Optiray-320, axial images of the abdomen and pelvi s were obtained from the lung bases to the proximal femurs. Images were reviewed in the axial, sagitt al, and coronal planes. IV contrast was administered without complication. Automated exposure contro l was utilized for the study. A dose lowering technique was utilized adhering to the principles of A JHONNY. CT DOSE: 527.21 mGy.cm FINDINGS: Mild elevation of the left hemidiaphragm is noted. There is a small hiatal hernia. Distal e sophagus is fluid-filled. Heart is mildly enlarged. Note is made of an 8 mm slightly lobulated right lower lobe nodule on image 38 of 476. This contains a few cystic spaces. No pneumatosis, free air or portal venous gas is present. There is mild biliary ductal dilatation status post cholecystectomy. Th e spleen, adrenal glands are unremarkable. There is moderate peripancreatic infiltration. Diverticulu m of the second portion of the duodenum is noted. There is no well-defined peripancreatic fluid colle ction. There is no evidence for pancreatic necrosis. Major vessels are patent. No pseudoaneurysm is i dentified. There are small bilateral renal calculi and large bladder calculi that measure up to 2.2 c m. There are no ureteral calculi. There are calcifications within the prostate. Extensive colonic div erticulosis is noted without evidence for acute diverticulitis. No suspicious osseous lesions are not ed. There is moderate aortoiliac plaque. IMPRESSION: 1. Moderate peripancreatic infiltration consistent with acute pancreatitis. Mild biliary ductal dilat ation status post cholecystectomy. No radiopaque common bile duct calculi. 2. Indeterminate 8 mm right lower lobe pulmonary nodule which can be followed according to the attach ed recommendations. 3. Nephrolithiasis. Large bladder calculi. No ureteral calculi. Please refer to below summary of Fleischner criteria recommendations for follow-up of incidental CT n odules (Db Amezcua, Guidelines for management of small pulmonary nodules detected on CT scans: A sta tement from the Fleischner Society, Radiology 237: [phone].) SOLID NODULES Solitary nodule size: <6 mm * low risk patients: no follow-up needed * high risk patients: optional CT at 12 months Solitary nodule size: 6-8 mm * low risk patients: follow-up at 6-12 months, then consider further follow-up at 18-24 months * high risk patients: initial follow-up CT at 6-12 months and then at 18-24 months if no change Solitary nodule size: >8 mm * either low or high risk patients - consider follow-up CT at 3 months, and/or CT-PET, and/or biopsy Multiple nodules size: <6 mm * low risk patients: no routine follow-up * high risk patients: optional CT at 12 months Multiple nodules size: 6-8 mm * low risk patients: follow-up at 3-6 months, then consider further follow-up at 18-24 months * high risk patients: follow-up at 3-6 months, then at 18-24 months if no change Multiple nodules size: >8 mm * low risk patients: follow-up at 3-6 months, then consider further follow-up at 18-24 months * high risk patients: follow-up at 3-6 months, then at 18-24 months if no change Note: newly detected indeterminate nodule in persons 35 years of age or older. * low risk patients: minimal or absent history of smoking and/or other known risk factors * high risk patients: history of smoking or of other known risk factors (e.g. first degree relative with lung cancer, or exposure to asbestos, radon, uranium) * if a nodule up to 8 mm is partly solid or is ground glass further follow-up is required after 24 m onths to exclude possible slow growing adenocarcinoma (MANDA) SUBSOLID NODULES Solitary pure ground-glass nodule * nodule size <6 mm - no CT follow-up required * nodule size >=6 mm - follow-up CT at 6-12 months, then every 2 years until 5 years Solitary part-solid nodule * nodule size <6 mm - no CT follow-up required * nodule size >=6 mm - follow-up CT at 3-6 months. If unchanged, and solid component remains <6 mm, then annual follow-up for 5 years Multiple subsolid nodules * nodule size <6 mm - follow-up CT at 3-6 months, consider further follow-up at 2 and 4 years if sta ble * nodule size >=6 mm - follow-up CT at 3-6 months, subsequent management based on the most suspiciou s nodule(s) Electronically signed by: Keshawn Mckeon M.D. 11/11/2018 9:01 AM
--- NOTE | 2018-11-11 09:12 | Ultrasound Report ---
US liver CLINICAL HISTORY: elevated lft. pancreatitis COMPARISON STUDY: CT of the abdomen and pelvis November 11, 2018. FINDINGS: Liver morphology is normal. No hepatic lesions are identified. There may be mild fatty infi ltration of the liver. There is mild dilatation of the common bile duct status post cholecystectomy. The common bile duct measures 1.1 cm in caliber. No common bile duct calculi are identified although the distal common bile duct is obscured. The pancreas is obscured by overlying bowel gas. There is no right hydronephrosis. IMPRESSION: 1. Mild biliary ductal dilatation status post cholecystectomy. No common bile duct calculi identified although distal common bile duct obscured. 2. Suspected mild fatty infiltration of liver. 3. Largely obscured pancreas due to overlying bowel gas. Electronically signed by: Keshawn Mckeon M.D. 11/11/2018 9:10 AM
[2018-11-11] MEDS: cefTRIAXone SODIUM 1,000 MG in DEXTROSE 5% 50 ML IV SCH (09:28)
[2018-11-11] MEDS: TAMSULOSIN HCL 0.4 MG CAP PO SCH (09:29)
[2018-11-11] MEDS: FAMOTIDINE 20 MG in SYRINGE 3 ML IV SCH ×2 (09:31→19:45)
[2018-11-11] MEDS: HYDROmorphone INJ 0.5 MG/0.5 ML SYR IV PRN ×4 (10:44→23:17)
[2018-11-11] MEDS ORDERED: LACTATED RINGER'S 1,000 ML IV ONE (11:49)
[2018-11-11] MEDS: POTASSIUM CHLORIDE / WTR 10 MEQ/100 ML PLCT IV SCH ×2 (11:56→13:02)
--- NOTE | 2018-11-11 13:57 | Consultation Report ---
DATE OF CONSULTATION: 11/11/2018 GASTROENTEROLOGY CONSULTATION NOTE REFERRED BY: Dr. Alexander, I was asked by Dr. Alexander to consult on this gentleman for evaluation of abdominal pain and pancreatitis. HISTORY OF PRESENT ILLNESS: The patient is an 83-year-old who presented to the Emergency Room with abdominal pain. He describes it developing after eating dinner in the epigastric area, it was very severe in nature, had some associated nausea. He did not vomit, however. He said several days prior to this he was started on a diuretic, hydrochlorothiazide. He does drink several cocktails at night, sometimes 2-3, but he states this has always been his practice and he has not increased his alcohol intake. He describes an episode of pancreatitis about 30 years ago. He states this was related to gallstone disease and he had his gallbladder removed at that time. He denies any previous episodes. He has had no change in stools. He denies any history of jaundice. He denies any dysphagia, unintended weight loss. I reviewed his medical records and his past medical history. PAST MEDICAL HISTORY: Significant for hypertension, aortic valve sclerosis, BPH, degenerative disk disease. He is a former smoker. ALLERGIES: HE STATES HE IS ALLERGIC TO GABAPENTIN AND MELOXICAM. OUTPATIENT MEDICATIONS: Include hydrochlorothiazide, Naprosyn, Lasix, Flomax, and Tylenol p.r.n. SOCIAL HISTORY: Again is significant for alcohol, several drinks at night, and he is a former smoker. FAMILY HISTORY: He denies any family history of gastrointestinal disease. REVIEW OF SYSTEMS: As above, otherwise he denies any recent change in vision or hearing. He has had no seizures. He denies any easy bruising. He has had no joint swelling. He denies any productive cough or new shortness of breath. He has had no dysuria. He denies any palpitations. He has had no nosebleeds. He has had no heat or cold intolerance. He denies any change in mood or depression. PHYSICAL EXAMINATION: GENERAL: Reveals a pleasant gentleman in no distress. VITAL SIGNS: Most recent blood pressure is 130/70, pulse is 90, temperature is 36.4. SKIN: Anicteric. HEENT: Eyes show anicteric sclerae. Mouth is dry with no obvious lesions. NECK: Supple with no adenopathy. CHEST: Clear. HEART: Regular. ABDOMEN: Soft, but he is tender to palpation in the epigastric area. There is no rebound. There are no obvious masses. EXTREMITIES: Warm with fair distal pulses and he has some trace bilateral pedal edema. NEUROLOGIC: He is alert and oriented x3 and neurologically grossly intact. LABORATORY DATA: Show a white blood cell count of 11.7, hemoglobin of 17, platelet count of 182,000. Liver enzymes show a total bilirubin of 2.4, direct bilirubin of 1.2, AST of 530, ALT of 191, alkaline phosphatase of 208, and lipase was 34,000. Imaging showed pancreatitis and there was no obvious common bile duct calculi noted on imaging, though this was on ultrasound. There was evidence of fatty liver infiltration. IMPRESSION AND PLAN: An 83-year-old gentleman with symptoms and findings most consistent with acute pancreatitis. I am concerned that this may be drug related to the hydrochlorothiazide which can be a culprit of causing pancreatitis. This should be stopped. This also could be related to alcohol use. I would follow his liver enzymes at this point. Certainly, his liver enzymes could be related to the acute pancreatitis, but I would also follow them and if there is concern about a possible common bile duct stone that has not been seen on the current imaging, an MRCP should be ordered. He needs to be more aggressively hydrated. He has only got about 800 mL in since admission and he needs at least another liter or two over the next 24 hours. I would follow his hemoglobin and make sure that his hemoglobin drops as well as his creatinine to prove adequate hydration. He also needs to be kept n.p.o. I will discuss this with his hospitalist. ALESSIO
[2018-11-11] MEDS: ACETAMINOPHEN 325 MG TAB PO PRN (14:07)
--- NOTE | 2018-11-11 14:50 | Hospitalist Progress Note ---
Date of Service November 11, 2018 Assessment & Plan (1) Acute pancreatitis: Likely secondary to use of alcohol and may be complicated by hydrochlorothiazide Common bile duct obstruction has to be ruled out He is status post cholecystectomy and likely need MRCP to rule out common bile duct stone Continue generous IV fluid, n.p.o. and symptomatic medications Appreciate GI input and recommendation Continue current management plan Present on Admission?: Yes (2) Hypertension: Blood pressure seems to be controlled (3) BPH (benign prostatic hyperplasia): Continue current medication (4) Alcohol abuse: No recent increasing use of alcohol Does not have any withdrawal symptoms Will watch for withdrawal (5) Abnormal LFTs: Showing hepatic and post hepatic abnormalities Could be secondary to hydrochlorothiazide To rule out common bile duct stone/sludge/obstruction Subjective 11/11 Patient was seen and examined in medical unit This is an 83-year-old male with past medical history significant for hypertension, aortic valve sclerosis, BPH, degenerative disk disease, bilateral leg edema, postherpetic neuralgia, history of tobacco abuse, presents with abdominal pain. The pain started after eating his dinner in epigastric region, moderate to severe in nature associated with nausea, no vomiting, no diarrhea or constipation His abdominal pain distention have improved Denies any nausea and/or vomiting Bowel has not moved to Review of Systems Review of Systems: All systems reviewed and are unremarkable except as noted below Constitutional: + body aches and + malaise Gastrointestinal: + abdominal pain, + bloating and + nausea Physical Exam Physical Exam: No apparent distress at rest Constitutional: well developed, well nourished and + ill appearing; no acute distress Eyes: PERRL, conjunctivae normal, anicteric sclerae ENMT: external ear and nose normal, oropharynx normal Respiratory: normal respiratory effort Auscultation: lungs clear to auscultation bilaterally Gastrointestinal (Abdomen): Inspection/Auscultation: + abdomen distended and normal bowel sounds Percussion/Palpation: + abdomen tender (Generalized tenderness) and abdomen soft Neurologic: Alert, awake and oriented x3 Lymphatic: no cervical or axillary lymphadenopathy Results & Data Vital Signs (Past 12 Hours) Vital Signs Temp Pulse Pulse Pulse Pulse Resp BP 11/11/18 11:45 36.9 C 70 15 11/11/18 07:45 36.4 C L 90 15 11/11/18 06:33 36.8 C 93 H 14 11/11/18 06:20 89 16 126/69 11/11/18 04:29 79 16 11/11/18 04:18 97 H 18 BP BP Pulse Ox 11/11/18 11:45 120/80 94 11/11/18 07:45 130/70 94 11/11/18 06:33 123/73 94 11/11/18 06:20 99 11/11/18 04:29 128/68 95 11/11/18 04:18 132/77 92 Laboratory Results Short CBC 11/11/18 Range/Units 02:57 WBC 11.73 H (4.8-10.8) K/uL Hgb 17.4 (14.0-18.0) g/dL Hct 48.2 (42-52) % Plt Count 182 (130-400) K/uL BMP 11/11/18 02:57 Sodium 136 Potassium 3.3 L Chloride 101 Carbon Dioxide 29 BUN 18 Creatinine 0.95 Glucose 112 H Calcium 9.7 Liver Function 11/11/18 Range/Units 02:57 Total Bilirubin 2.4 H (0.2-1) mg/dl Direct Bilirubin 1.2 H (0-0.2) mg/dl AST 530 H (15-37) U/L ALT 191 H (12-78) U/L Alkaline Phosphatase 208 H (45-117) U/L Albumin 3.9 (3.4-5.0) gm/dl Urine 11/11/18 Range/Units 02:57 Urine Color [place] Urine Appearance Cloudy A (Clear) Urine pH 5.0 (4.5-7.5) Ur Specific [place] 1.021 (1.000-1.030) Urine Protein Trace H (Negative) Urine Glucose (UA) Negative (Negative) Medications Administered Current Inpatient Medications Acetaminophen (Tylenol) 650 mg PO Q4H PRN PRN Reason: pain/fever Stop: 12/11/18 06:50 Last Admin: 11/11/18 14:07 Dose: 650 mg Documented by: Hydromorphone HCl (Dilaudid) 0.5 mg IV Q3H PRN PRN Reason: Pain Stop: 11/25/18 06:50 Last Admin: 11/11/18 10:44 Dose: 0.5 mg Documented by: Lactated Ringer's (Lr) 1,000 mls @ 200 mls/hr IV .Q5H [facility] Stop: 12/11/18 06:50 Last Infusion: 11/11/18 13:48 Dose: 200 mls/hr Documented by: Famotidine 20 mg/ Syringe 5 mls @ 2.5 mls/min IV BID [facility] Stop: 12/11/18 08:59 Last Admin: 11/11/18 09:31 Dose: 2.5 mls/min Documented by: Ceftriaxone Sodium 1,000 mg/ (Dextrose) 50 mls @ 100 mls/hr IV Q24H [facility]; Protocol Stop: 11/21/18 06:59 Last Infusion: 11/11/18 10:42 Dose: Infused Documented by: Ondansetron HCl (Zofran) 4 mg IV Q6H PRN PRN Reason: Nausea Stop: 12/11/18 06:50 Tamsulosin HCl (Flomax) 0.4 mg PO DAILY [facility] Stop: 12/11/18 08:59 Last Admin: 11/11/18 09:29 Dose: 0.4 mg Documented by: (1) Acute pancreatitis Acute pancreatitis complication: no infection or necrosis Pancreatitis type: alcohol induced Qualified Code(s): K85.20 - Alcohol induced acute pancreatitis without necrosis or infection
[2018-11-11 17:15] LABS: Basophils # (auto) 0.01 K/uL (0-0.2); Basophils % (auto) 0.1 %; Eosinophils # (auto) 0.02 K/uL (0-0.5); Eosinophils % (auto) 0.2 %; Hematocrit (blood only) 42.5 % (42-52); Immature Granulocytes # (auto) 0.23 K/uL (0.00-0.02); Immature Granulocytes % (auto) 1.8 %; Lymphocytes # (auto) 0.39 K/uL (1.2-3.4); Mean Corpuscular Hgb Conc 35.3 g/dL (32-36); Mean Corpuscular Volume 91.8 fL (80-100); Mean Platelet Volume 9.5 fL (7.4-10.4); Monocytes # (auto) 0.19 K/uL (0.11-0.59); Monocytes % (auto) 1.5 %; Neutrophils # (auto) 12.02 K/uL (1.4-6.5); Neutrophils % (auto) 93.4 %; Platelet Count 146 K/uL (130-400); RDW Coefficient of Variation 15.4 % (11.5-14.5); RDW Standard Deviation 51.6 fL (36.4-46.3); Red Blood Count 4.63 M/uL (4.7-6.1); White Blood Count 12.86 K/uL (4.8-10.8)
[2018-11-11 17:38] LABS: Albumin Globulin Ratio 0.8 (0.9-2); Albumin Level 2.8 gm/dl (3.4-5.0); BUN Creatinine Ratio 24.9 (10-20); Calcium 8.7 mg/dl (8.5-10.1); Creatinine Clr Calc Pharmacy 93.4 ml/min; Est GFR (African American) 107.8; Globulin 3.3 gm/dl (2.5-4.0); Potassium 3.7 mmol/L (3.5-5.1); Total Protein 6.1 gm/dl (6.4-8.2)
[2018-11-12] MEDS: LACTATED RINGER'S 1,000 ML IV SCH ×5 (01:01→20:18)
[2018-11-12 05:25] LABS: Basophils # (auto) 0.03 K/uL (0-0.2); Basophils % (auto) 0.2 %; Eosinophils # (auto) 0.06 K/uL (0-0.5); Eosinophils % (auto) 0.4 %; Hematocrit (blood only) 42.3 % (42-52); Immature Granulocytes % (auto) 1.4 %; Lymphocytes # (auto) 0.55 K/uL (1.2-3.4); Lymphocytes % (auto) 3.7 %; Mean Corpuscular Hgb Conc 35.5 g/dL (32-36); Mean Platelet Volume 9.4 fL (7.4-10.4); Monocytes # (auto) 0.41 K/uL (0.11-0.59); Monocytes % (auto) 2.8 %; Neutrophils # (auto) 13.42 K/uL (1.4-6.5); Neutrophils % (auto) 91.5 %; Platelet Count 142 K/uL (130-400); RDW Coefficient of Variation 15.3 % (11.5-14.5); RDW Standard Deviation 51.8 fL (36.4-46.3); White Blood Count 14.67 K/uL (4.8-10.8)
[2018-11-12 05:42] LABS: Albumin Level 2.6 gm/dl (3.4-5.0); BUN Creatinine Ratio 19.3 (10-20); Calcium 9.1 mg/dl (8.5-10.1); Creatinine Clr Calc Pharmacy 82.5 ml/min; Est GFR (African American) 102.5; Est GFR (Non-African American) 88.4; Magnesium 1.7 mg/dl (1.8-2.4); Potassium 3.6 mmol/L (3.5-5.1)
[2018-11-12 05:47] LABS: Albumin Globulin Ratio 0.8 (0.9-2); Bilirubin,Total 0.9 mg/dl (0.2-1); Globulin 3.1 gm/dl (2.5-4.0); Total Protein 5.7 gm/dl (6.4-8.2)
[2018-11-12 05:51] LABS: Albumin Level 2.6 gm/dl (3.4-5.0); Bilirubin Direct 0.3 mg/dl (0-0.2); Bilirubin,Total 0.9 mg/dl (0.2-1)
[2018-11-12] MEDS: cefTRIAXone SODIUM 1,000 MG in DEXTROSE 5% 50 ML IV SCH (06:00)
[2018-11-12] MEDS: TAMSULOSIN HCL 0.4 MG CAP PO SCH (08:48)
[2018-11-12] MEDS: FAMOTIDINE 20 MG in SYRINGE 3 ML IV SCH ×2 (08:48→20:16)
--- NOTE | 2018-11-12 12:01 | Hospitalist Progress Note ---
Date of Service November 12, 2018 Assessment & Plan (1) Acute pancreatitis: Likely secondary to use of alcohol and may be complicated by hydrochlorothiazide Common bile duct obstruction has to be ruled out He is status post cholecystectomy and likely need MRCP to rule out common bile duct stone Continue generous IV fluid, n.p.o. and symptomatic medications Appreciate GI input and recommendation Continue current management plan Lipase has been improving and LFTs are much better We will await GI recommendation for further testing Will start clears and advance as tolerated (2) Hypertension: Blood pressure seems to be controlled (3) BPH (benign prostatic hyperplasia): Continue current medication (4) Alcohol abuse: No recent increasing use of alcohol Does not have any withdra No signs and/or symptoms of withdrawal wal symptoms Will watch for withdrawal (5) Abnormal LFTs: Showing hepatic and post hepatic abnormalities Could be secondary to hydrochlorothiazide To rule out common bile duct stone/sludge/obstruction LFTs are much improved We will monitor Subjective 11/11 Patient was seen and examined in medical unit This is an 83-year-old male with past medical history significant for hypertension, aortic valve sclerosis, BPH, degenerative disk disease, bilateral leg edema, postherpetic neuralgia, history of tobacco abuse, presents with abdominal pain. The pain started after eating his dinner in epigastric region, moderate to severe in nature associated with nausea, no vomiting, no diarrhea or constipation His abdominal pain distention have improved Denies any nausea and/or vomiting Bowel has not moved to 11/12 The patient was seen and examined the medical floor He has been much better today with decreasing abdominal distention and pain and/or nausea, vomiting He denies any chest pain/shortness of breath or palpitation Review of Systems Constitutional: + body aches and + malaise Gastrointestinal: + abdominal pain, + bloating and + nausea Physical Exam Physical Exam: No apparent distress at rest Constitutional: well developed, well nourished and + ill appearing; no acute distress Eyes: PERRL, conjunctivae normal, anicteric sclerae ENMT: external ear and nose normal, oropharynx normal Respiratory: normal respiratory effort Auscultation: lungs clear to auscultation bilaterally Gastrointestinal (Abdomen): Inspection/Auscultation: + abdomen distended and normal bowel sounds Percussion/Palpation: + abdomen tender (Generalized tenderness) and abdomen soft Neurologic: PERRL, EOMI, accommodation nl, no face palsy, no dysarthria Lymphatic: no cervical or axillary lymphadenopathy Results & Data Vital Signs (Past 12 Hours) Vital Signs Temp Pulse Resp BP Pulse Ox 11/12/18 07:22 37.2 C 81 18 131/67 91 Laboratory Results Short CBC 11/11/18 11/12/18 Range/Units 16:55 05:11 WBC 12.86 H 14.67 H (4.8-10.8) K/uL Hgb 15.0 15.0 (14.0-18.0) g/dL Hct 42.5 42.3 (42-52) % Plt Count 146 142 (130-400) K/uL BMP 11/11/18 11/12/18 16:55 05:11 Sodium 137 135 L Potassium 3.7 3.6 Chloride 106 102 Carbon Dioxide 29 29 BUN 15 13 Creatinine 0.61 D 0.69 Glucose 87 81 Calcium 8.7 9.1 Liver Function 11/11/18 11/12/18 11/12/18 Range/Units 16:55 05:11 05:11 Total Bilirubin 1.0 D 0.9 0.9 (0.2-1) mg/dl Direct Bilirubin 0.3 H D (0-0.2) mg/dl AST 144 H 90 H 90 H (15-37) U/L ALT 113 H 86 H 87 H (12-78) U/L Alkaline Phosphatase 137 H 126 H 128 H (45-117) U/L Albumin 2.8 L 2.6 L 2.6 L (3.4-5.0) gm/dl Medications Administered Current Inpatient Medications Acetaminophen (Tylenol) 650 mg PO Q4H PRN PRN Reason: pain/fever Stop: 12/11/18 06:50 Last Admin: 11/11/18 14:07 Dose: 650 mg Documented by: Hydromorphone HCl (Dilaudid) 0.5 mg IV Q3H PRN PRN Reason: Pain Stop: 11/25/18 06:50 Last Admin: 11/11/18 23:17 Dose: 0.5 mg Documented by: Lactated Ringer's (Lr) 1,000 mls @ 200 mls/hr IV .Q5H [facility] Stop: 12/11/18 06:50 Last Admin: 11/12/18 11:36 Dose: 200 mls/hr Documented by: Famotidine 20 mg/ Syringe 5 mls @ 2.5 mls/min IV BID [facility] Stop: 12/11/18 08:59 Last Admin: 11/12/18 08:48 Dose: 2.5 mls/min Documented by: Ceftriaxone Sodium 1,000 mg/ (Dextrose) 50 mls @ 100 mls/hr IV Q24H [facility]; Protocol Stop: 11/21/18 06:59 Last Infusion: 11/12/18 06:40 Dose: Infused Documented by: Ondansetron HCl (Zofran) 4 mg IV Q6H PRN PRN Reason: Nausea Stop: 12/11/18 06:50 Tamsulosin HCl (Flomax) 0.4 mg PO DAILY [facility] Stop: 12/11/18 08:59 Last Admin: 11/12/18 08:48 Dose: 0.4 mg Documented by: (1) Acute pancreatitis Acute pancreatitis complication: no infection or necrosis Pancreatitis type: alcohol induced Qualified Code(s): K85.20 - Alcohol induced acute pancreatitis without necrosis or infection
[2018-11-13] MEDS: LACTATED RINGER'S 1,000 ML IV SCH ×3 (01:15→11:53)
[2018-11-13] MEDS: ACETAMINOPHEN 325 MG TAB PO PRN ×2 (03:45→08:21)
[2018-11-13] MEDS: cefTRIAXone SODIUM 1,000 MG in DEXTROSE 5% 50 ML IV SCH (06:02)
[2018-11-13 06:23] LABS: Basophils # (auto) 0.02 K/uL (0-0.2); Basophils % (auto) 0.2 %; Eosinophils # (auto) 0.25 K/uL (0-0.5); Eosinophils % (auto) 2.3 %; Hematocrit (blood only) 39.5 % (42-52); Hemoglobin 13.9 g/dL (14.0-18.0); Immature Granulocytes # (auto) 0.05 K/uL (0.00-0.02); Immature Granulocytes % (auto) 0.5 %; Lymphocytes # (auto) 0.88 K/uL (1.2-3.4); Lymphocytes % (auto) 8.1 %; Mean Corpuscular Hgb Conc 35.2 g/dL (32-36); Mean Corpuscular Volume 91.4 fL (80-100); Mean Platelet Volume 9.2 fL (7.4-10.4); Monocytes # (auto) 0.39 K/uL (0.11-0.59); Monocytes % (auto) 3.6 %; Neutrophils # (auto) 9.34 K/uL (1.4-6.5); Neutrophils % (auto) 85.3 %; Platelet Count 158 K/uL (130-400); RDW Coefficient of Variation 15.1 % (11.5-14.5); RDW Standard Deviation 51.2 fL (36.4-46.3); Red Blood Count 4.32 M/uL (4.7-6.1); White Blood Count 10.93 K/uL (4.8-10.8)
[2018-11-13 07:07] LABS: Albumin Level 2.3 gm/dl (3.4-5.0); BUN Creatinine Ratio 18.2 (10-20); Calcium 9.1 mg/dl (8.5-10.1); Creatinine Clr Calc Pharmacy 101.7 ml/min; Est GFR (African American) 111.6; Est GFR (Non-African American) 96.3; Potassium 3.4 mmol/L (3.5-5.1)
[2018-11-13 07:09] LABS: Albumin Globulin Ratio 0.7 (0.9-2); Bilirubin,Total 0.9 mg/dl (0.2-1); Globulin 3.3 gm/dl (2.5-4.0); Total Protein 5.6 gm/dl (6.4-8.2)
[2018-11-13] MEDS: TAMSULOSIN HCL 0.4 MG CAP PO SCH (08:21)
--- NOTE | 2018-11-13 08:52 | Gastroenterology Progress Note ---
Date of Service November 13, 2018 Assessment & Plan (1) Acute pancreatitis: Pt is a 83 y/o male admitted for acute pancreatitis, suspected to be a combination of HCTZ and also ETOH use. He is s/p cholecystectomy. Both Lipase and LFTs were elevated and now decreasing. U/S, CT w/o signs of CBD stone but distal bile duct not seen well on U/S. Pt is overall symptomatically improved. - FL diet; advance to low fat diet as tolerated - Decrease LR IVF to 150ml/hr; may DC if continues to tolerate PO intake well - Obtain MRCP to r/o choledocholithiasis - No contraindication for DC home if continues to do well and negative MRCP - Recommending DC'ing HCTZ - ETOH cessation. Supervising Physician Co-Signing Physician Notes I have personally seen and examined the patient with ISMAEL Calderon. Her note reflects my exam and findings. I agree with her impression and plan. Doing much better. Do not restart HCTZ or thiazide diuretics. Minimize ETOH. Kali Armenta M.D. Subjective Pt denies any fever, chills, CP, SOB, abd pain, n/v. Tolerated CL diet last night. Passing flatus and BM yesterday w/o rectal bleeding. Noted LFTs, and Lipase decreasing. Review of Systems Review of Systems: All systems reviewed & are unremarkable except as noted in HPI & below Physical Exam Constitutional: WD/WN, vitals as above well groomed, cooperative and comfortable Eyes: PERRL, conjunctivae normal, anicteric sclerae ENMT: external ear and nose normal, oropharynx normal Respiratory: normal respiratory effort, lungs clear to auscultation Cardiovascular: RRR, no murmur, no edema Gastrointestinal (Abdomen): normal bowel sounds, soft, nontender, no hepatosplenomegaly Skin: no rashes, warm and dry no jaundice Neurologic: Motor/Sensory: no asterixis Psychiatric: A+Ox3, euthymic affect Lymphatic: no lymphedema Results & Data Vital Signs (Past 12 Hours) Vital Signs Temp Pulse Pulse Resp BP Pulse Ox 11/13/18 08:31 36.4 C L 62 19 120/62 90 11/12/18 22:52 37.3 C 76 14 145/72 H 97 Laboratory Results Laboratory Results - last 48 hr 11/11/18 11/11/1811/12/19 16:55 16:55 05:11 WBC 12.86 H RBC 4.63 L Hgb 15.0 Hct 42.5 MCV 91.8 MCH 32.4 MCHC 35.3 RDW Std Deviation 51.6 H RDW Coeff of Jocelyn 15.4 H Plt Count 146 MPV 9.5 Immature Gran % (Auto) 1.8 Neut % (Auto) 93.4 Lymph % (Auto) 3.0 Josephine % (Auto) 1.5 Eos % (Auto) 0.2 Baso % (Auto) 0.1 Immature Gran # (Auto) 0.23 H Neut # (Auto) 12.02 H Lymph # (Auto) 0.39 L Josephine # (Auto) 0.19 Eos # (Auto) 0.02 Baso # (Auto) 0.01 Sodium 137 Potassium 3.7 Chloride 106 Carbon Dioxide 29 Anion Gap 2.0 L BUN 15 Creatinine 0.61 D Est Cr Clr Drug Dosing 93.4 Est GFR ( Amer) 107.8 Est GFR (Non-Af Amer) 93.0 BUN/Creatinine Ratio 24.9 H Glucose 87 Calcium 8.7 Magnesium Total Bilirubin 1.0 D 0.9 Direct Bilirubin 0.3 H D AST 144 H 90 H ALT 113 H 86 H Alkaline Phosphatase 137 H 126 H Total Protein 6.1 L D 6.0 L Albumin 2.8 L 2.6 L Globulin 3.3 Albumin/Globulin Ratio 0.8 L Triglycerides Cholesterol LDL Cholesterol, Calc VLDL Cholesterol, Calc HDL Cholesterol Cholesterol/HDL Ratio Lipase 61219 H 3590 H 11/12/18 11/12/18 11/13/18 05:11 05:11 05:51 WBC 14.67 H 10.93 H RBC 4.60 L 4.32 L Hgb 15.0 13.9 L Hct 42.3 39.5 L MCV 92.0 91.4 MCH 32.6 32.2 MCHC 35.5 35.2 RDW Std Deviation 51.8 H 51.2 H RDW Coeff of Jocelyn 15.3 H 15.1 H Plt Count 142 158 MPV 9.4 9.2 Immature Gran % (Auto) 1.4 0.5 Neut % (Auto) 91.5 85.3 Lymph % (Auto) 3.7 8.1 Josephine % (Auto) 2.8 3.6 Eos % (Auto) 0.4 2.3 Baso % (Auto) 0.2 0.2 Immature Gran # (Auto) 0.20 H 0.05 H Neut # (Auto) 13.42 H 9.34 H Lymph # (Auto) 0.55 L 0.88 L Josephine # (Auto) 0.41 0.39 Eos # (Auto) 0.06 0.25 Baso # (Auto) 0.03 0.02 Sodium 135 L Potassium 3.6 Chloride 102 Carbon Dioxide 29 Anion Gap 4.0 BUN 13 Creatinine 0.69 Est Cr Clr Drug Dosing 82.5 Est GFR ( Amer) 102.5 Est GFR (Non-Af Amer) 88.4 BUN/Creatinine Ratio 19.3 Glucose 81 Calcium 9.1 Magnesium 1.7 L Total Bilirubin 0.9 Direct Bilirubin AST 90 H ALT 87 H Alkaline Phosphatase 128 H Total Protein 5.7 L Albumin 2.6 L Globulin 3.1 Albumin/Globulin Ratio 0.8 L Triglycerides 76 Cholesterol 105 LDL Cholesterol, Calc 38 VLDL Cholesterol, Calc 15 HDL Cholesterol 52 Cholesterol/HDL Ratio 2 Lipase 11/13/18 05:51 WBC RBC Hgb Hct MCV MCH MCHC RDW Std Deviation RDW Coeff of Jocelyn Plt Count MPV Immature Gran % (Auto) Neut % (Auto) Lymph % (Auto) Josephine % (Auto) Eos % (Auto) Baso % (Auto) Immature Gran # (Auto) Neut # (Auto) Lymph # (Auto) Josephine # (Auto) Eos # (Auto) Baso # (Auto) Sodium 141 Potassium 3.4 L Chloride 109 H Carbon Dioxide 27 Anion Gap 5.0 BUN 10 Creatinine 0.56 L Est Cr Clr Drug Dosing 101.7 Est GFR ( Amer) 111.6 Est GFR (Non-Af Amer) 96.3 BUN/Creatinine Ratio 18.2 Glucose 83 Calcium 9.1 Magnesium Total Bilirubin 0.9 Direct Bilirubin AST 34 ALT 52 Alkaline Phosphatase 108 Total Protein 5.6 L Albumin 2.3 L Globulin 3.3 Albumin/Globulin Ratio 0.7 L Triglycerides Cholesterol LDL Cholesterol, Calc VLDL Cholesterol, Calc HDL Cholesterol Cholesterol/HDL Ratio Lipase 905 H (1) Acute pancreatitis Acute pancreatitis complication: no infection or necrosis Pancreatitis type: alcohol induced Qualified Code(s): K85.20 - Alcohol induced acute pancreatitis without necrosis or infection
[2018-11-13] MEDS: FAMOTIDINE 20 MG in SYRINGE 3 ML IV SCH (09:36)
--- NOTE | 2018-11-13 11:50 | Hospitalist Progress Note ---
Date of Service November 13, 2018 Assessment & Plan (1) Acute pancreatitis: Likely secondary to use of alcohol and may be complicated by hydrochlorothiazide Common bile duct obstruction has to be ruled out He is status post cholecystectomy and likely need MRCP to rule out common bile duct stone Continue generous IV fluid, n.p.o. and symptomatic medications Appreciate GI input and recommendation Continue current management plan Lipase has been improving and LFTs are much better We will await GI recommendation for further testing Will start clears and advance as tolerated Tolerating regular diet and denies any symptoms LFTs have been normalized Does not want to go for MRCP as advised Will discharge home this afternoon (2) Hypertension: Blood pressure seems to be controlled Will DC hydrochlorothiazide as it is a probable cause of pancreatitis (3) BPH (benign prostatic hyperplasia): Continue current medication (4) Alcohol abuse: No recent increasing use of alcohol Does not have any withdra No signs and/or symptoms of withdrawal wal symptoms Will watch for withdrawal Advised to quit drinking (5) Abnormal LFTs: Showing hepatic and post hepatic abnormalities Could be secondary to hydrochlorothiazide To rule out common bile duct stone/sludge/obstruction LFTs are much improved We will monitor-normalized Discharge home this afternoon Subjective 11/11 Patient was seen and examined in medical unit This is an 83-year-old male with past medical history significant for hypertensi on, aortic valve sclerosis, BPH, degenerative disk disease, bilateral leg edema, postherpetic neuralgia, history of tobacco abuse, presents with abdominal pain. The pain started after eating his dinner in epigastric region, moderate to severe in nature associated with nausea, no vomiting, no diarrhea or constipation His abdominal pain distention have improved Denies any nausea and/or vomiting Bowel has not moved to 11/12 The patient was seen and examined the medical floor He has been much better today with decreasing abdominal distention and pain and/or nausea, vomiting He denies any chest pain/shortness of breath or palpitation 11/13 Patient was seen and examined in the medical floor He has been feeling a lot better and denies any abdominal pain, nausea and/or vomiting He denies any other symptoms His LFTs are normalized Review of Systems Constitutional: + malaise Physical Exam Physical Exam: No apparent distress at rest Constitutional: well developed, well nourished and + ill appearing; no acute distress Eyes: PERRL, conjunctivae normal, anicteric sclerae ENMT: external ear and nose normal, oropharynx normal Respiratory: normal respiratory effort Auscultation: lungs clear to auscultation bilaterally Gastrointestinal (Abdomen): Inspection/Auscultation: + abdomen distended and normal bowel sounds Percussion/Palpation: + abdomen tender (Generalized tenderness) and abdomen soft Neurologic: PERRL, EOMI, accommodation nl, no face palsy, no dysarthria Lymphatic: no cervical or axillary lymphadenopathy Results & Data Vital Signs (Past 12 Hours) Vital Signs Temp Pulse Resp BP Pulse Ox 11/13/18 08:31 36.4 C L 62 19 120/62 90 Laboratory Results Short CBC 11/13/18 Range/Units 05:51 WBC 10.93 H (4.8-10.8) K/uL Hgb 13.9 L (14.0-18.0) g/dL Hct 39.5 L (42-52) % Plt Count 158 (130-400) K/uL BMP 11/13/18 05:51 Sodium 141 Potassium 3.4 L Chloride 109 H Carbon Dioxide 27 BUN 10 Creatinine 0.56 L Glucose 83 Calcium 9.1 Liver Function 11/13/18 Range/Units 05:51 Total Bilirubin 0.9 (0.2-1) mg/dl AST 34 (15-37) U/L ALT 52 (12-78) U/L Alkaline Phosphatase 108 (45-117) U/L Albumin 2.3 L (3.4-5.0) gm/dl Medications Administered Current Inpatient Medications Acetaminophen (Tylenol) 650 mg PO Q4H PRN PRN Reason: pain/fever Stop: 12/11/18 06:50 Last Admin: 11/13/18 08:21 Dose: 650 mg Documented by: Hydromorphone HCl (Dilaudid) 0.5 mg IV Q3H PRN PRN Reason: Pain Stop: 11/25/18 06:50 Last Admin: 11/11/18 23:17 Dose: 0.5 mg Documented by: Lactated Ringer's (Lr) 1,000 mls @ 150 mls/hr IV .Q6H40M [facility] Stop: 12/11/18 06:50 Last Infusion: 11/13/18 09:35 Dose: 150 mls/hr Documented by: Famotidine 20 mg/ Syringe 5 mls @ 2.5 mls/min IV BID [facility] Stop: 12/11/18 08:59 Last Admin: 11/13/18 09:36 Dose: 2.5 mls/min Documented by: Ceftriaxone Sodium 1,000 mg/ (Dextrose) 50 mls @ 100 mls/hr IV Q24H [facility]; Protocol Stop: 11/21/18 06:59 Last Infusion: 11/13/18 06:35 Dose: Infused Documented by: Ondansetron HCl (Zofran) 4 mg IV Q6H PRN PRN Reason: Nausea Stop: 12/11/18 06:50 Tamsulosin HCl (Flomax) 0.4 mg PO DAILY [facility] Stop: 12/11/18 08:59 Last Admin: 11/13/18 08:21 Dose: 0.4 mg Documented by: (1) Acute pancreatitis Acute pancreatitis complication: no infection or necrosis Pancreatitis type: alcohol induced Qualified Code(s): K85.20 - Alcohol induced acute pancreatitis without necrosis or infection
[2018-11-13] MEDS ORDERED: LOPERAMIDE HCL 2 MG CAP PO PRN (12:04)
[2018-11-13] MEDS ORDERED: POTASSIUM CHLORIDE 20 MEQ TABCR PO STA (13:28)
--- NOTE | 2018-11-13 17:14 | Discharge Summary ---
Date of Service November 13, 2018 Admission HPI Per Admitting Provider Chief Complaint: Fall at home, jaw pain Primary Care Provider: Iván Sethi, This is an 83yo M with a PMH of HTN and BPH who presents with injuries after a syncopal event around midnight. Patient was prescribed gabapentin for carpal tunnel pain and took two 300mg tablets yesterday. [place] lightheaded but was able to complete daily tasks. Drank his usual nightcap of bourbon around 10pm and remembers feeling lightheaded as he walked toward the stairs. The next thing he remembers is waking up on the floor at 3 AM with bleeding around the left ear and chin. Was able to walk up the stairs and go to bed. Denies any chest pain, palpitations or shortness of breath preceding the syncopal episode. Came to the ED today for further evaluation. Patient is experiencing right rib pain and jaw pain, especially on the left side. Notes that his "teeth are not matching up"and is not able to fully close his mouth. Denies any lightheadedness, headache, neck pain, chest pain, palpitations, shortness of breath, abdominal pain, nausea, vomiting, dysuria, diarrhea or constipation. States he has been eating his normal diet at home. Reports drinking 2oz of bourbon every night and drinking wine with dinner 2x/week. No other new medications besides gabapentin. No history of heart disease, stroke or seizure. Of note, was seen in the ED in October of this year with a similar presentation. Admission Exam Per Admitting Provider Vital Signs (Past 24 Hours): Last Vital Signs Temp 36.7 C 06/09/18 12:52 Pulse 83 06/09/18 17:01 Resp 24 06/09/18 17:01 BP 126/77 06/09/18 17:01 Pulse Ox 95 06/09/18 17:01 Physical Exam: General Appearance: WD/WN, no apparent distress Head: normocephalic, atraumatic. Eyes: injected bilaterally, PERRL, EOMI ENT: sutured laceration below chin with eccymosis, tenderness and edema of mandibular near anterior aspect of ear. Dried blood in external ear. Hearing grossly normal, pharynx normal (moist mucous membranes) Neck: supple, no JVD, no adenopathy Respiratory/Chest: lungs clear to auscultation. No wheezes, rales or rhonci. No respiratory distress or accessory muscle use Cardiovascular: regular rate, rhythm, no murmur, normal peripheral pulses Abdomen/GI: normal bowel sounds, soft, non-tender to palpation Extremities/Musculoskelatal: normal inspection, no calf tenderness, normal capillary refill, no pedal edema. Ecchymosis on palmar aspects of bilateral hands Neurologic/Psych: alert, normal mood/affect, oriented x 3 Skin: normal color, warm/dry Principal Diagnosis Acute pancreatitis likely secondary to HCTZ, abnormal liver function test- improved Discharge Exam Constitutional well developed, well nourished and + ill appearing; no acute distress Eyes PERRL, conjunctivae normal, anicteric sclerae ENMT external ear and nose normal, oropharynx normal Respiratory normal respiratory effort Auscultation: lungs clear to auscultation bilaterally Gastrointestinal (Abdomen) Inspection/Auscultation: + abdomen distended and normal bowel sounds Percussion/Palpation: + abdomen tender (Generalized tenderness) and abdomen soft Neurologic PERRL, EOMI, accommodation nl, no face palsy, no dysarthria Lymphatic no cervical or axillary lymphadenopathy Discharge Data Allergies Allergy/AdvReac Type Severity Reaction Status Date / Time meloxicam Allergy Unknown RASH Verified 11/11/18 05:50 Consultations 11/11/18 04:40 ED Decision to Admit Stat 11/11/18 06:51 Consult Case Management - Discharge Planning Routine 11/11/18 08:00 Consult Gastroenterology Routine Ordered Studies 11/11/18 03:13 CT abd pelvis IV con only Urgent 11/11/18 08:33 US liver Urgent Hospital Course (1) Acute pancreatitis: Likely secondary to use of alcohol and may be complicated by hydrochlorothiazide Common bile duct obstruction has to be ruled out He is status post cholecystectomy and likely need MRCP to rule out common bile duct stone Continue generous IV fluid, n.p.o. and symptomatic medications Appreciate GI input and recommendation Continue current management plan Lipase has been improving and LFTs are much better We will await GI recommendation for further testing Will start clears and advance as tolerated Tolerating regular diet and denies any symptoms LFTs have been normalized Does not want to go for MRCP as advised Will discharge home this afternoon (2) Hypertension: Blood pressure seems to be controlled Will DC hydrochlorothiazide as it is a probable cause of pancreatitis (3) BPH (benign prostatic hyperplasia): Continue current medication (4) Alcohol abuse: No recent increasing use of alcohol Does not have any withdra No signs and/or symptoms of withdrawal wal symptoms Will watch for withdrawal Advised to quit drinking (5) Abnormal LFTs: Showing hepatic and post hepatic abnormalities Could be secondary to hydrochlorothiazide To rule out common bile duct stone/sludge/obstruction LFTs are much improved We will monitor-normalized Discharge home this afternoon Total Time Total Time Spent Total Time Spent (In Minutes): 35 minutes Total Time Includes: Examination of the Patient, Discharge Planning, Medication Reconciliation and Communication With Other Providers Discharge Plan Discharge Items Patient Disposition: Home - Self-Care Reason For Visit: ABDOMINAL PAIN Discharge Diagnosis: Acute pancreatitis likely secondary to HCTZ, abnormal liver function test-improved Condition: Fair Discharge Goals: Decrease discomfort, Improve function and Increase independence Activity: Resume your previous activity Non-emergency contact: Primary Care Provider Call non-emergency contact if: you have any medication questions and your symptoms worsen Follow-up/Referrals: Iván Sethi, [Primary Care Provider] - 11/17/18 11:00 am (Your appointment is with Dr. Brady. Dr. Mann is away) Diet: Regular Addtl Provider Instructions: Your hydrochlorothiazide has been stopped. Your blood pressure remains stable but you may need blood pressure medications in the near future if the blood pressure goes higher. Prescriptions: Continued naproxen 250 mg Tablet 250 mg PO BID PRN (Reason: Pain) RF: 0 acetaminophen [Acetaminophen Extra Strength] 500 mg Tablet 500 mg PO Q6H PRN (Reason: Pain) RF: 0 tamsulosin 0.4 mg Capsule 0.4 mg PO DAILY RF: 0 Discontinued hydrochlorothiazide 25 mg tablet 12.5 mg PO DAILY RF: 0 Stand-Alone Forms: Work/School Release (ED), [facility], [facility]/Other Patient Handouts: Pancreatitis Discharge Orders: Discharge Order (Routine); Ordered 11/13/18 Ordered By: Noam Alexander Admission Data Admit Date/Time: 11/11/18 05:38 Attending Provider: Noam Alexander Admit Provider: Juan Killian Primary Care Provider: Iván Sethi Other Providers: Juan Killian ; Ana Greene ; Libra Logan ; Juliet Palomares ; Raoul Mills ; Abdiel Ochoa ; Torri Carroll ; Priya Whaley ; Chandu Bowles ; Kali Armenta ; Melanie Peraza ; Afua Desai ; Sneha Kimbrough ; Cata Bender ; Ok Carranza Service: Surgical Services Other Interventions: Discharge Summary Assessment (RN) Last Done: 11/13/18 13:53 DC Date/Time DO NOT enter until pt leaves facility: 11/13/18 15:35
[2018-11-13] MEDS ORDERED: FAMOTIDINE 20 MG TAB PO SCH (21:00)
== END 2018-11-13 15:35 | disposition home or self-care (01) | DRG 440 ==
LOC: ED 02:32 → 3N 05:38

== ENCOUNTER 2019-02-19 10:37 | Observation (INO) ==
--- NOTE | 2019-01-31 14:11 | PAT Medication Instructions ---
Medication Instructions Date of Service January 31, 2019 Home Medications acetaminophen [Acetaminophen Extra Strength] 500 mg PO Q6H PRN naproxen 250 mg PO BID PRN tamsulosin 0.4 mg PO QPM ASK your surgeon for instructions naproxen 250 mg PO BID PRN Take morning of surgery With a small sip of water, OTHERWISE NOTHING TO EAT OR DRINK AFTER MIDNIGHT: acetaminophen [Acetaminophen Extra Strength] 500 mg PO Q6H PRN (if needed) Take evening before surgery tamsulosin 0.4 mg PO QPM Other Notes If you have any questions please call us at [phone] or [phone] or [phone] or [phone]
--- NOTE | 2019-02-01 15:09 | PAT Medication Instructions ---
Medication Instructions Date of Service February 01, 2019 Home Medications acetaminophen [Acetaminophen Extra Strength] 500 mg PO Q6H PRN naproxen 250 mg PO BID PRN tamsulosin 0.4 mg PO QPM ASK your surgeon for instructions naproxen 250 mg PO BID PRN Take morning of surgery With a small sip of water, OTHERWISE NOTHING TO EAT OR DRINK AFTER MIDNIGHT: acetaminophen [Acetaminophen Extra Strength] 500 mg PO Q6H PRN (okay to take up to 4 hours prior to surgery if needed) Take evening before surgery acetaminophen [Acetaminophen Extra Strength] 500 mg PO Q6H PRN (if needed) tamsulosin 0.4 mg PO QPM Other Notes If you have any questions please call us at [phone] or [phone] or [phone] or [phone]
--- NOTE | 2019-02-05 14:08 | Anesthesiology Consultation ---
Date of Service February 05, 2019 Assessment & Plan (1) Encounter for pre-operative examination: Chart Review Chart Review: Acceptable Risk for Surgery and Patient seen in Pre Admission Testing Teaching & Discussion Pre-Anesthesia Teaching/Discussion Notes: Instructed NPO after midnight before surgery,except medications with 15 cc of water. Medication instructions provided according to the PAT guidelines. History Surgery Operation Date: 02/19/19 09:50 Proposed Procedures p Laminectomy/Foraminotomy - Davion Payton DO Height/Weight Height: 5 ft 9 in Weight: 75.5 kg Allergies Allergy/AdvReac Type Severity Reaction Status Date / Time meloxicam Allergy Unknown RASH Verified 01/29/19 15:19 Medications Home Medications Medication Instructions Recorded Confirmed Last Taken acetaminophen [Acetaminophen Extra 500 mg PO Q6H PRN 11/11/18 01/29/19 Unknown Strength] naproxen 250 mg PO BID PRN 11/11/18 01/29/19 Unknown tamsulosin 0.4 mg PO QPM 11/11/18 01/29/19 Unknown Past Medical History Medical History DDD (degenerative disc disease) BPH (benign prostatic hyperplasia) History of hypertension controlled since weight loss Osteoarthritis Spinal stenosis B/L LE radiculopathy Exercise / Class Metabolic Activity III < 4 Walking/Shop/Light housework (uses cane PRN) Past Family History Family History Mother Liver cancer Past Surgical History Surgical History History of appendectomy History of carpal tunnel surgery RIGHT HAND History of tonsillectomy and adenoidectomy Hx of hernia repair RIGHT INGUINAL Hx of toe surgery HAD TOENAIL REMOVED IN OFFICE 12/2018 Hx of tonsillectomy Past Anesthesia History No Hx of Anesthesia Complications and No Family Hx of Anesthesia Complications History of PONV No Hx of PONV and No Hx of Motion Sickness Social History Smoking Status: Former smoker tobacco type: cigarettes Do You Dip or Chew Tobacco: No Smoking End Date: QUIT 20 YEARS AGO; SMOKED 1/2 PPD X 30+ YEARS Hx Alcohol Use: Yes Alcohol type: hard liquor alcohol intake frequency: 0-2 drinks per day (2-4 oz bourbon + occasional wine daily*) Hx Substance Use: No Review of Systems Patient denies chest pain, shortness of breath, cough, wheezing, palpitations. Physical Exam Vital Signs VITALS BP 146/84 (per patient, BP typically 130-140's/60's; Patient advised to followup with PCP regarding elevated BP) P 73 TEMP 98.0 SP02 95%RA RESP 20 PHYSICAL Full neck and c-spine range of motion. Full TMJ range of motion. TMD 3 finger breaths Mallampati Score 2 Dentition: full upper dentures, missing lower sides/molars Lungs: clear throughout to auscultation Cardiac: regular rate and rhythm, I/ systolic murmur Spine: normal Carotid arteries: negative bruit Extremities: no edema Testing Laboratory Results 02/05/19 14:46 02/05/19 14:46 PT 10.7 Seconds (9.0-12.0) 02/05/19 14:46 INR 1.0 (0.9-1.1) 02/05/19 14:46 APTT 29.5 Seconds (21.0-31.0) 02/05/19 14:46 Electrocardiogram Date: 11/07/17 NSR at 76bpm. Possible LAE. LAD. Chest X-Ray Date: 10/26/18 Moderate tortuosity thoracic aorta. Small fixed lateral hernia. Lungs are considered clear. Diaphragms are smooth. Chronic change. No acute process. Echocardiogram Date: 09/26/18 EF: 60-64%. No RWMA. LVH (borderline increased, concentric) and + diastolic dysfunction (Grade I). Mild aortic valve sclerosis is present. Mild mitral regurgitation is present. Mild tricuspid regurgitation is present. PASP 37mmHg. Compared to prior study of 04/18/14, there is no significant change. Stress Test Date: 12/27/18 Type: DSE LVEF 55-59%. DSE negative for inducible ischemia. 115% MPHR.
[2019-02-05 15:17] LABS: Basophils # (auto) 0.04 K/uL (0-0.2); Basophils % (auto) 0.6 %; Eosinophils % (auto) 1.5 %; Hematocrit (blood only) 42.3 % (42-52); Hemoglobin 14.4 g/dL (14.0-18.0); Immature Granulocytes # (auto) 0.01 K/uL (0.00-0.02); Immature Granulocytes % (auto) 0.1 %; Lymphocytes # (auto) 0.85 K/uL (1.2-3.4); Lymphocytes % (auto) 12.5 %; Mean Corpuscular Volume 96.6 fL (80-100); Monocytes # (auto) 0.49 K/uL (0.11-0.59); Monocytes % (auto) 7.2 %; Neutrophils % (auto) 78.1 %; Platelet Count 223 K/uL (130-400); RDW Coefficient of Variation 13.9 % (11.5-14.5); RDW Standard Deviation 49.3 fL (36.4-46.3); Red Blood Count 4.38 M/uL (4.7-6.1); White Blood Count 6.79 K/uL (4.8-10.8)
[2019-02-05 15:24] LABS: BUN Creatinine Ratio 36.4 (10-20); Calcium 9.3 mg/dl (8.5-10.1); Est GFR (African American) 105.7; Est GFR (Non-African American) 91.2; Potassium 3.9 mmol/L (3.5-5.1)
[2019-02-05 15:34] LABS: Partial Thromboplastin Ratio 1.1; Partial Thromboplastin Time 29.5 Seconds (21.0-31.0); Prothrombin Time 10.7 Seconds (9.0-12.0)
--- NOTE | 2019-02-16 18:02 | History and Physical Report ---
DATE OF ADMISSION: 02/19/2019 CHIEF COMPLAINT: Back and lower extremity difficulty, paresthesias, numbness and tingling from the knee down. HISTORY OF PRESENT ILLNESS: K[place] is pleasant. He is 83. He has spinal stenosis of the spine and degenerative changes. He is for elective surgery. PAST MEDICAL HISTORY: Amazingly, he is healthy. No hypertension, COPD, diabetes mellitus, carcinoma. PAST SURGICAL HISTORY: Negative. ALLERGIES: GABAPENTIN. SOCIAL HISTORY: , 2 drinks of alcohol daily. No tobacco. Active. FAMILY HISTORY: Negative for diabetes, heart disease. REVIEW OF SYSTEMS: Twelve system review no fevers, sweats, chills, weight loss, gain. Ear, nose and throat negative. Denies chest pain, palpitations. No asthma, wheezing, shortness of breath. No nausea, vomiting. No urgency, frequency. No depression. He has joint pain, stiffness, muscle pain and cramping. MEDICATIONS: One medication for prostate swelling. PHYSICAL EXAMINATION: GENERAL: He is 5' 9", 175. He is in no distress, VITAL SIGNS: Blood pressure 130/80, pulse 80, respiration 16. HEENT: Pupils react to light and accommodation. Ear, nose and throat clear. CARDIAC: Normal S1, S2, no S3. LUNGS: Clear to auscultation. No rales, rhonchi, wheezing. ABDOMEN: Soft, nontender. Bowel sounds present in all quadrants. MUSCULOSKELETAL: He has some weakness of dorsiflexion, plantar forward flexion, weakness of quadriceps function. He has pain with flexion, extension of the spine, blunted reflexes. Images demonstrate degenerative scoliosis and spinal stenosis L3-L4. PLAN: Laminectomy L3-4 lumbar spine.
[~2019-02-19 10:37] MED LIST changes: +ACETAMINOPHEN 1000 MG/100 ML IV IV SCH; +CEFAZOLIN 2000MG 2,000 MG/15 ML SYR IV SCH; -LISI10TA PO; +LR 15ML/HR IV SCH; +SODIUM CHLORIDE 0.9% 1,000 ML IV SCH
[2019-02-19] MEDS ORDERED: LIDOCAINE HCL 2% 2 ML VIAL/AMP(20MG/ML) INFIL ONE (11:28)
[2019-02-19] MEDS ORDERED: MIDAZOLAM HCL 1 MG/ML 2ML VIAL ONE (11:28)
[2019-02-19] MEDS ORDERED: fentaNYL citrate 100 MCG/2 ML VIAL ONE ×2 (11:28→14:26)
[2019-02-19] MEDS ORDERED: ONDANSETRON INJ 2 MG/ML 2 ML VIAL ONE (11:28)
[2019-02-19] MEDS ORDERED: PROPOFOL IV EMULSION 10 MG/ML 20 ML VIAL IV ONE (11:28)
[2019-02-19] MEDS ORDERED: ePHEDrine sulfate 50 MG/ML AMP IV PRN (12:36)
[2019-02-19] MEDS ORDERED: ATROPINE SULFATE 0.1 MG/ML 10ML SYR IV PRN (12:36)
[2019-02-19] MEDS ORDERED: ONDANSETRON INJ 2 MG/ML 2 ML VIAL IV PRN ×2 (12:36→16:34)
--- NOTE | 2019-02-19 13:44 | History & Physical Bridge Note ---
Date of Service February 19, 2019 History & Physical Bridge Note I have examined the patient, reviewed the History & Physical and in the interval since the performance of the History & Physical I have noted the following changes of clinical significance: no changes noted
[2019-02-19] MEDS ORDERED: BUPIVACAINE/EPINEPHRINE 0.5% MPF 1:200,000 30 ML VIAL ONE (14:01)
[2019-02-19] MEDS ORDERED: GELATIN SPONGE SZ 100 ONE (14:01)
[2019-02-19] MEDS ORDERED: VANCOMYCIN HCL 1000MG/20ML VIAL ONE (14:01)
[2019-02-19] MEDS ORDERED: BACITRACIN INJ 50,000 UNIT VIAL ONE (14:02)
[2019-02-19] MEDS ORDERED: THROMBIN FOR SOLN 20000 UNIT KIT ONE (14:02)
--- NOTE | 2019-02-19 15:00 | Fluoroscopy Report ---
INTRAOPERATIVE RADIOGRAPH CLINICAL HISTORY: L3-L4 laminectomy. Fluoroscopy time: 1 second. FINDINGS: A single spot fluoroscopic image of the lower lumbar spine is presented. Surgical probes pr oject posteriorly at the levels of L3 and L5-S1. There is evidence of laminectomy. IMPRESSION: Intraoperative image of the lower lumbar spine as above. Electronically signed by: Javid Mendoza M.D. 02/19/2019 2:59 PM
[2019-02-19] MEDS ORDERED: GLYCOPYRROLATE 0.2 MG/ML VIAL ONE (15:08)
[2019-02-19] MEDS ORDERED: NEOSTIGMINE METHYLSULFATE 5 MG/5 ML SYR ONE (15:08)
[2019-02-19] MEDS ORDERED: ePHEDrine sulfate 50 MG/ML AMP ONE (15:08)
--- NOTE | 2019-02-19 15:17 | Post Operative Brief Note ---
PG Immediate Post Op with CF Date of Surgery February 19, 2019 Pre & Post Diagnosis Operation Date: 02/19/19 12:10 Pre-Op Diagnosis: Lumbar Spinal Stenosis Post-Op Diagnosis: Lumbar Spinal Stenosis Procedure Operation Date: 02/19/19 12:10 Actual Procedures p L3-L4 Laminectomy(Not Applicable) - Davion Payton DO Surgeon Davion Payton DO Mail Carrier And Clerk shae Estimated Blood Loss 100 Findings Consistent with Post-Op Diagnosis Specimens Specimen Description: none Drains Hemovac Drain
--- NOTE | 2019-02-19 15:24 | Post Operative Brief Note ---
PG Immediate Post Op with CF Date of Surgery February 19, 2019 Pre & Post Diagnosis Operation Date: 02/19/19 12:10 Pre-Op Diagnosis: Lumbar Spinal Stenosis Post-Op Diagnosis: Lumbar Spinal Stenosis Procedure Operation Date: 02/19/19 12:10 Actual Procedures p L3-L4 Laminectomy(Not Applicable) - Davion Payton DO Actual procedure: L3-5 laminectomy Surgeon Davion Payton DO Inspector Tester Sorter shae Estimated Blood Loss 100 Findings Consistent with Post-Op Diagnosis Specimens Specimen Description: none Drains Hemovac Drain
[2019-02-19] MEDS: fentaNYL citrate 100 MCG/2 ML VIAL IV PRN ×2 (15:39→15:45)
[2019-02-19] MEDS: HYDROmorphone INJ 1 MG/ML SYRINGE IV PRN ×2 (15:51→15:56)
[2019-02-19] MEDS ORDERED: MAGNESIUM HYDROXIDE SUSP 30 ML UDC PO PRN (16:34)
[2019-02-19] MEDS ORDERED: HYDROmorphone INJ 1 MG/ML SYRINGE IV PRN ×2 (16:34)
[2019-02-19] MEDS ORDERED: OXYCODONE HCL IR 5 MG TAB (IMMEDIATE RELEASE) PO PRN (16:34)
[2019-02-19] MEDS ORDERED: LORazepam 1 MG/2 ML VIAL IV PRN (16:34)
--- NOTE | 2019-02-19 16:40 | Anesthesiology Progress Note ---
Date of Service February 19, 2019 Anesthesia Post Procedure Vital Signs Vital Signs: Temp Pulse Resp BP Pulse Ox 02/19/19 16:15 66 22 123/62 100 02/19/19 16:05 36.1 C L 67 18 129/57 L 99 02/19/19 15:55 56 L 13 127/57 L 100 02/19/19 15:45 69 14 126/61 100 02/19/19 15:35 72 16 125/63 100 02/19/19 15:27 36.1 C L 74 19 128/60 99 Pain Intensity Lower Back: Pain Intensity: 3 Transfer of Care Handoff Completed per policy Notes Mental Status: alert / awake / arousable and participated in evaluation Patient Amnestic to Procedure: Yes Nausea / Vomiting: adequately controlled Pain: adequately controlled Airway Patency, RR, SpO2: stable & adequate BP & HR: stable & adequate Hydration State: stable & adequate Anesthetic Complications: no major complications apparent
--- NOTE | 2019-02-19 16:50 | Hospitalist Consultation ---
Date of Consultation February 19, 2019 Assessment & Plan (1) DDD (degenerative disc disease): (2) Lumbar spinal stenosis: -S/p L3-L4 laminectomy, by Dr. Payton on 02/19/2019 -PT/OT per primary team -No anticoagulation with spinal surgery -Pain management on board -Bowel regimen ordered (3) Hypertension: - BP normal, not on medication since weight loss. (4) BPH (benign prostatic hyperplasia): - Stable (5) Alcohol abuse: - Hx of such, uses 2-4 oz burbon daily. No signs of withdrawal sx. (6) DVT prophylaxis: -teds, scds, no chemical ppx d/t spinal surgery Dispo: From home, discharge per primary team Thank you for involving us in the care of Mr. Melo. Please do not hesitate to call with questions or concerns. At this time medicine service will sign off. Supervising Physician Co-Signing Physician Notes I have seen the patient with Ophelia Garcia and agree with exam , assessment and plan. History of Present Illness Reason for Consultation: Medical management Requesting Physician: Dr. Payton Attending Physician: Davion Payton, History of Present Illness This is an 83 yo M with PMHx of remote HTN now controlled s/p weight loss, osteoarthritis, spinal stenosis, BPH and degenerative disc disease who presents for elective L3-L4 laminectomy by Dr. Payton on 02/19/19. Pt reports that he's "Currently at 10 %" and feels very tired. He denies any acute complaints. Pt is drinking water without difficulty, has not yet had dinner. No BM or flatus yet. When asked about alcohol use pt states he drinks 2-4oz of burbon daily, but that his last drink was 3 days ago. He denies any headache, shaking or other withdrawal like sx. 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 Allergies Allergy/AdvReac Type Severity Reaction Status Date / Time hydrochlorothiazide Allergy Severe Unknown Verified 02/19/19 11:28 meloxicam Allergy Unknown RASH Verified 02/19/19 11:28 gabapentin AdvReac Severe Fainting Verified 02/19/19 11:28 Home Medications Home Medications Medication Instructions Recorded Confirmed Type acetaminophen [Acetaminophen Extra 500 mg PO Q6H PRN 11/11/18 02/19/19 History Strength] naproxen 250 mg PO BID PRN 11/11/18 02/19/19 History tamsulosin 0.4 mg PO QPM 11/11/18 02/19/19 History cephalexin [Keflex] 250 mg PO BID 02/19/19 02/19/19 History hydrocodone-acetaminophen [[place]] 1 tab PO Q6H PRN #40 tab 02/20/19 Rx Patient History Medical History DDD (degenerative disc disease) BPH (benign prostatic hyperplasia) History of hypertension controlled since weight loss Osteoarthritis Spinal stenosis B/L LE radiculopathy Surgical History History of appendectomy History of carpal tunnel surgery RIGHT HAND History of tonsillectomy and adenoidectomy Hx of hernia repair RIGHT INGUINAL Hx of toe surgery HAD TOENAIL REMOVED IN OFFICE 12/2018 Hx of tonsillectomy Family History Mother Liver cancer Social History Preferred Language: [place] Communication Ability: Effective Chemical Tank Worker Required: No Beliefs That Will Affect Care: None marital status: Current Living Situation: Spouse Current Living Situation Comment: 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 HE IS TRYING TO FIND SOMEONE Feels Safe at Home: Yes Smoking Status: Former smoker Tobacco Type: cigarettes ; Do You Dip or Chew Tobacco: No ; Smoking End Date: QUIT 20 YEARS AGO; SMOKED 1/2 PPD X 30+ YEARS ; Second Hand Exposure: No ; Hx Alcohol Use: Yes Alcohol type: hard liquor Hx Substance Use: No Review of Systems Review of Systems: Constitutional: No fever, sweats or chills Eyes: No diplopia, no worsening or blurred vision ENT: normal hearing, no trouble swallowing Respiratory: No cough, sputum, dyspnea at rest or on exertion Cardiovascular: No chest pain, tightness or palpitations Abdomen: No pain, nausea, vomiting, diarrhea or constipation Musculoskeletal: No joint pain, calf pain, swelling Neurologic: No weakness, numbness/tingling, or balance problems Psychiatric: No anxiety or depression Skin: No rash or itch Physical Exam Physical Exam: General: awake, alert, no apparent distress Head: Normocephalic, atraumatic ENT: PERRL, EOMI, no pharyngeal exudate, mucous membranes moist Chest: Clear to auscultation, on room air, no adventitious breath sounds Cardiac: Regular rate and rhythm, no murmur, no JVD, normal peripheral pulses, good capillary refill Abdominal: NABS x 4 quadrants, soft, nontender to palpation, no rebound, guarding or tenderness Back: hemovac in place, dressing c/d/i. Extremities: Normal inspection, no peripheral edema or erythema, calfs nontender to palpation Psych: Normal mood and affect Neuro: AAO x 3, no gross motor deficits, speech is clear, no peripheral sensory deficits Results & Data Vital Signs (Past 12 Hours) Vital Signs Temp Pulse Resp BP Pulse Ox 02/19/19 16:15 66 22 123/62 100 02/19/19 16:05 36.1 C L 67 18 129/57 L 99 02/19/19 15:55 56 L 13 127/57 L 100 02/19/19 15:45 69 14 126/61 100 02/19/19 15:35 72 16 125/63 100 02/19/19 15:27 36.1 C L 74 19 128/60 99 PG Care Time/CCT Total # of Minutes Spent Total Time Spent with Patient: Total time spent is greater than 50% in coordination of care (as documented) at patient's floor/unit and/or counseling patient:
[2019-02-19] MEDS: SODIUM CHLORIDE 0.9% 1000ML 1,000 ML IV SCH (18:18)
[2019-02-19] MEDS: OXYCODONE HCL IR 5 MG TAB (IMMEDIATE RELEASE) PO PRN ×2 (19:39→23:49)
[2019-02-19] MEDS: TAMSULOSIN HCL 0.4 MG CAP PO SCH (19:40)
[2019-02-19] MEDS: DOCUSATE SODIUM 100 MG CAP PO SCH (19:40)
[2019-02-19] MEDS: CEFAZOLIN 2000MG 2,000 MG/15 ML SYR IV SCH (22:04)
[2019-02-19] MEDS: ACETAMINOPHEN 1,000 MG/100 ML VIAL IV SCH (22:04)
[2019-02-20] MEDS: CEFAZOLIN 2000MG 2,000 MG/15 ML SYR IV SCH ×2 (05:32→13:30)
[2019-02-20] MEDS: ACETAMINOPHEN 1,000 MG/100 ML VIAL IV SCH ×3 (05:35→21:06)
[2019-02-20] MEDS: SODIUM CHLORIDE 0.9% 1000ML 1,000 ML IV SCH (05:36)
[2019-02-20] MEDS: DOCUSATE SODIUM 100 MG CAP PO SCH ×2 (08:54→21:04)
[2019-02-20] MEDS: OXYCODONE HCL IR 5 MG TAB (IMMEDIATE RELEASE) PO PRN ×3 (10:04→21:04)
[2019-02-20] MEDS: TAMSULOSIN HCL 0.4 MG CAP PO SCH (21:04)
[2019-02-20] MEDS: cephALEXin 250 MG CAP PO SCH (21:04)
[2019-02-21] MEDS: ACETAMINOPHEN 1,000 MG/100 ML VIAL IV SCH ×2 (05:40→13:45)
[2019-02-21] MEDS ORDERED: BISACODYL 5 MG TABEC PO PRN (06:00)
--- NOTE | 2019-02-21 08:05 | Discharge Summary ---
HOSPITAL COURSE: He is alert, oriented, minimal complaints of pain. Ambulatory, taking p.o. No chest pain, shortness of breath, confusion. He has had a very uneventful 48 hours. He is ready for discharge. He will be discharged this morning to a rehab facility. He has prescriptions on his chart for [place]. He will probably need his dressing changed about every 48 hours. Keep his wound clean and dry. Careful of course with bending, stooping, lifting, fall, on a normal postoperative recovery protocol.
[2019-02-21] MEDS: cephALEXin 250 MG CAP PO SCH (09:05)
[2019-02-21] MEDS: DOCUSATE SODIUM 100 MG CAP PO SCH (09:05)
[2019-02-21] MEDS: OXYCODONE HCL IR 5 MG TAB (IMMEDIATE RELEASE) PO PRN (10:39)
--- NOTE | 2019-02-21 11:30 | Communication Note ---
Date of Service: February 21, 2019 Nursing contacted our hospitalist service to let us know that the patient was having urinary retention and required Cannon catheter placement. I reviewed the chart and noted that the patient should actually be on the [facility] hospitalist service. Our service signed off 2 days ago after doing the initial consultation. I also advised her to let Dr. Payton know as she said that he was likely unaware if this. It is important that the surgeon knows he is having urinary retention as he did have a spinal surgery. If the surgeon wants him to see urology, I will defer to him to place the consultation. If he wants the patient to be seen by hospitalist, the nurse was advised to page the [facility] hospitalist service. The [facility] hospitalist service will not be involved in this case at this time to improve continuity of care in the [facility] system for the patient.
--- NOTE | 2019-02-22 21:06 | Operative Report ---
DATE OF OPERATION: 02/19/2019 PREOPERATIVE DIAGNOSIS: Severe spinal stenosis L3-L4, L4-L5, lumbar spine. PROCEDURE: Included a lumbar spine laminectomy, foraminotomy, partial facetectomy, decompression of neural elements, L3-L4, L4-L5, lumbar spine. SURGEON: Davion Payton DO. COOK FROZEN DESSERT: Wade Robles PA-C. ESTIMATED BLOOD LOSS: 100 mL. DESCRIPTION OF PROCEDURE: The patient was identified in the preop holding area, identified with a marking pen, bridge note provided, brought back to the operating room. He was intubated, prepped in and placed prone, prepped and draped sterile. We made a skin incision, fascial incision. We came right down on the neural elements. We marked this area with C-arm guidance. We decompressed the neural elements at L4-L5 and L3-L4 lumbar spine, foraminotomies, partial facetectomies. We meticulously dissected each and every nerve root free of obstruction. I did not feel a fusion was required. We completed the decompression. We irrigated thoroughly, placed some Gelfoam over the dural structures, vancomycin powder deep, closed with 1-0 Vicryl, 2-0 and 3-0 nylon on the skin. Sterile dressings applied. The patient then extubated to PACU stable. Sponge and needle count correct. No complications. I attest to the content of the Intraoperative Record and any orders documented therein. Any exception s are noted below.
== END 2019-02-21 16:00 ==
LOC: 3E 10:37 → ASU 10:37

== ENCOUNTER 2019-08-11 18:24 | Inpatient (IN) ==
[2019-08-11] MEDS ORDERED: ONDANSETRON INJ 2 MG/ML 2 ML VIAL IV STA ×2 (18:42→20:52)
[2019-08-11] MEDS ORDERED: MoRPHine SULFATE 4 MG/ML 1 ML CARP\\VIAL IV STA ×2 (18:42→20:52)
[2019-08-11 18:56] LABS: Basophils # (auto) 0.01 K/uL (0-0.2); Basophils % (auto) 0.1 %; Eosinophils # (auto) 0.04 K/uL (0-0.5); Eosinophils % (auto) 0.4 %; Hematocrit (blood only) 46.5 % (42-52); Hemoglobin 16.1 g/dL (14.0-18.0); Immature Granulocytes # (auto) 0.02 K/uL (0.00-0.02); Immature Granulocytes % (auto) 0.2 %; Lymphocytes # (auto) 0.23 K/uL (1.2-3.4); Lymphocytes % (auto) 2.4 %; Mean Corpuscular Hemoglobin 32.7 pg (25-34); Mean Corpuscular Hgb Conc 34.6 g/dL (32-36); Mean Corpuscular Volume 94.3 fL (80-100); Mean Platelet Volume 9.6 fL (7.4-10.4); Monocytes # (auto) 0.22 K/uL (0.11-0.59); Monocytes % (auto) 2.3 %; Neutrophils # (auto) 9.13 K/uL (1.4-6.5); Neutrophils % (auto) 94.6 %; Platelet Count 173 K/uL (130-400); RDW Coefficient of Variation 15.1 % (11.5-14.5); Red Blood Count 4.93 M/uL (4.7-6.1); White Blood Count 9.65 K/uL (4.8-10.8)
[2019-08-11] MEDS ORDERED: MoRPHine SULFATE 2 MG/ML CARP ONE (19:11)
[2019-08-11 19:14] LABS: Alanine Aminotransferase 320 U/L (12-78); Albumin Level 3.6 gm/dl (3.4-5.0); Aspartate Aminotransferase 672 U/L (15-37); BUN Creatinine Ratio 24.5 (10-20); Blood Urea Nitrogen 18 mg/dl (7-18); Calcium 9.2 mg/dl (8.5-10.1); Carbon Dioxide 27 mmol/L (21-32); Chloride 110 mmol/L (98-107); Creatinine Clr Calc Pharmacy 75.6 ml/min; Est GFR (African American) 98.9; Est GFR (Non-African American) 85.3; Glucose 106 mg/dl (70-99); Potassium 3.6 mmol/L (3.5-5.1); Sodium 142 mmol/L (136-145)
[2019-08-11 19:15] LABS: Appearance Urine Turbid (Clear); Bacteria Urine Automated Negative (Negative); Blood Urine Trace (Negative); Epithelial Cell Urine Auto >30 /lpf (0-5); Glucose Urine UA Negative (Negative); Ketones Urine Negative (Negative); Leukocyte Esterase Urine 1+ (Negative); Nitrite Urine Positive (Negative); Protein Urine 1+ (Negative); Specific Gravity Urine 1.031 (1.000-1.030); Urobilinogen Urine Positive (Negative)
[2019-08-11 19:19] LABS: Albumin Globulin Ratio 1.1 (0.9-2); Alkaline Phosphatase 188 U/L (45-117); Bilirubin,Total 3.4 mg/dl (0.2-1); Globulin 3.3 gm/dl (2.5-4.0); Total Protein 6.9 gm/dl (6.4-8.2); Troponin I < 0.015 ng/ml (0-0.045)
[2019-08-11 19:21] LABS: Bilirubin Urine 2+ (Negative); Color Urine Dark Yellow
[2019-08-11 19:22] LABS: Ictotest Urine Positive (Negative)
[2019-08-11 19:36] LABS: Calcium Oxalate Crystals Urine Present (None Prsent); RBC Urine Automated 0-4 /hpf (0-4)
[2019-08-11] MEDS ORDERED: IOVERSOL 100ml IV PRN (19:42)
--- NOTE | 2019-08-11 19:44 | XRay Report ---
SINGLE VIEW PELVIS; 2 VIEWS RIGHT HIP CLINICAL HISTORY: Right leg injury. FINDINGS: An AP view of the pelvis with AP and frog-leg views of the right hip are correlated with pe lvic CT dated 11/11/2018. The skeletal structures are osteopenic. There is no radiographic evidence of acute fracture involving the hips or bony pelvis. Mild degenerative joint space narrowing is present in both hips. The sacroiliac joints are normal as visualized. Lumbosacral spondylosis is partially im aged. Enthesophytes arise from the anterior superior iliac spines. Large bladder calculi are noted in the pelvis. The overlying soft tissues are normal as imaged. IMPRESSION: 1. No acute bony abnormality is seen involving the hips or pelvis. 2. Large bladder calculi are noted in the pelvis. Electronically signed by: Javid Mendoza M.D. 08/11/2019 7:43 PM
--- NOTE | 2019-08-11 19:45 | XRay Report ---
TWO VIEW CHEST CLINICAL HISTORY: Atypical chest pain. FINDINGS: PA and lateral chest radiographs are compared to study dated 10/26/2018. The heart is enlarg ed noting atherosclerotic calcification of the thoracic aorta. The pulmonary vasculature is nonconges fatmata. Emphysema and chronic interstitial thickening are similar to previous. There is bibasilar scarri ng/atelectasis. No airspace consolidation or pleural effusion is identified. There is no pneumothorax . The skeletal structures are osteopenic. The bony thorax appears intact. Cholecystectomy clips are n oted in the right upper quadrant. IMPRESSION: Cardiomegaly and emphysema with no active disease in the chest. ACT 112: Negative or not required by law. Electronically signed by: Javid Mendoza M.D. 08/11/2019 7:44 PM
--- NOTE | 2019-08-11 20:05 | CT Scan Report ---
CT SCAN OF THE ABDOMEN AND PELVIS WITH IV CONTRAST CLINICAL HISTORY: Epigastric abdominal pain. COMPARISON STUDY: Abdominal CT dated 11/11/2018. TECHNIQUE: Following the IV administration of 94 cc of Optiray 320, CT scan of the abdomen and pelvi s is performed from the lung bases to the proximal femora. Images are reviewed in the axial, sagittal , and coronal planes. IV contrast was administered without complication. A dose lowering technique wa s utilized adhering to the principles of ALARA. CT DOSE: 459.61 mGy.cm FINDINGS: Lung bases: The heart is enlarged and without pericardial effusion. The coronary arteries are densely calcified. There is a small hiatal hernia. Emphysema is change is noted. Scarring/atelectasis is pre sent at both lung bases and there is chronic elevation of the left hemidiaphragm. No airspace consoli dation or pleural effusion is identified. An irregular 9 mm pulmonary nodule is again seen in the rig ht lower lobe on image #23. Liver: The contrast-enhanced liver is normal in size, contour, and attenuation. There is mild to mode rate intrahepatic biliary ductal dilatation. The hepatic veins and portal veins are patent. Gallbladder: Surgically absent noting clips in the gallbladder fossa. Spleen: Normal in size and attenuation. Pancreas: The pancreas is mildly atrophic. There is extensive peripancreatic inflammation and fluid, typical in appearance for acute pancreatitis. The gland enhances homogeneously. The splenic vein is p atent. No organized peripancreatic fluid collection is identified. A 10 mm cystic lesion in the pancr eatic body on image #107 is unchanged and typical in appearance for small sidebranch IPMN. Adrenal glands: A 1.6 cm right adrenal nodule is unchanged from previous. This likely represents an a denoma but cannot be definitely characterized due to the presence of IV contrast. The left adrenal gl and is normal in appearance. Kidneys: The contrast enhanced demonstrate cortical atrophy and are without hydronephrosis. The kidne ys enhance symmetrically. Scattered subcentimeter cortical hypodensities likely represent cysts but a re too small for definitive characterization. A 4 mm nonobstructing calculus is seen in the right low er pole. Abdominal vasculature: There is advanced atherosclerotic calcification and mild ectasia of the abdomi nal aorta. Bowel: No bowel obstruction is seen. There is a large duodenal diverticulum. Mild wall thickening and hyperemia of the duodenum is likely related to adjacent pancreatitis. There is advanced colonic dive rticulosis without CT evidence of acute diverticulitis. The appendix is not identified and reported surgically absent. Peritoneum: There is trace free fluid in the pelvis. No intraperitoneal free air is seen. There is a small fat-containing umbilical hernia. Lymphadenopathy: Prominent peripancreatic lymph nodes measure up to 9 mm in short axis. Pelvic viscera: The prostate gland is enlarged and heterogeneous, measuring 5.6 cm in transverse diam eter. There is median lobe hypertrophy. Although decompressed, the bladder wall appears thickened and trabeculated indicating chronic outlet obstruction. Large bladder calculi are identified and measure up to 2.6 cm. There are large calcifications in the prostate gland located within the prostatic uret hra. These are similar to previous. Skeletal structures: The skeletal structures are osteopenic. There is moderate to advanced lumbosacra l spondylosis with evidence of previous lumbar laminectomy. There is degenerative change noted in the sacroiliac joints with partial fusion seen on the right. No lytic or blastic lesions are seen. IMPRESSION: 1. Findings are consistent with acute pancreatitis. Correlation with clinical findings and serum amyl ase/lipase levels will be required. 2. The pancreas enhances homogeneously. The splenic vein is patent and there is no organized peripanc reatic fluid collection. 3. Cardiomegaly and emphysema. 4. A 9 mm irregular pulmonary nodule is again seen in the right lower lobe. This is pathologically in determinant but morphologically concerning. Neoplasm is the diagnosis of exclusion and nonemergent fo llow-up with a thoracic surgeon is recommended. 5. Advanced colonic diverticulosis without CT evidence of acute diverticulitis. 6. Large bladder calculi are identified. There are also large stones located within the prostatic ure thra. 7. Trace free fluid is noted in the pelvis. 8. Right-sided nephrolithiasis. 9. Additional findings as above. ACT 112: Negative or not required by law. Electronically signed by: Javid Mendoza M.D. 08/11/2019 8:03 PM
[2019-08-11 21:07] LABS: Lipase 28964 U/L (73-393)
[2019-08-11] MEDS ORDERED: ALBUT/IPRATROP 3MG/0.5MG NEB 3 ML VIAL NEB STA (21:14)
[2019-08-11] MEDS ORDERED: LACTATED RINGER'S 1,000 ML IV STA (21:15)
--- NOTE | 2019-08-11 22:14 | History & Physical Report ---
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 Medical history significant for hypertension, BPH, past tobacco/alcohol abuse as per records, history of bladder stones, history of pancreatitis attributed to HCTZ. Recent confinement February 2019 under orthopedic service for laminectomy for lumbar spinel stenosis. Patient noted achy epigastric discomfort this afternoon going to his chest, worse with deep breathing. No fever, no chills. Some right groin discomfort. Last alcohol intake was a few days ago. Patient brought to the ER for evaluation by EMS. 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 Allergies Allergy/AdvReac Type Severity Reaction Status Date / Time hydrochlorothiazide Allergy Severe PANCREATITI Verified 08/11/19 19:25 S meloxicam Allergy Unknown RASH Verified 08/11/19 19:25 gabapentin AdvReac Severe Fainting Verified 08/11/19 19:25 Home Medications Home Medications Medication Instructions Recorded Confirmed Type acetaminophen [Acetaminophen Extra 1,000 - 1,500 mg PO Q6H PRN 11/11/18 08/11/19 History Strength] naproxen 250 - 500 mg PO BID PRN 11/11/18 08/11/19 History tamsulosin 0.4 mg PO QPM 11/11/18 08/11/19 History dutasteride 0.5 mg PO QPM 08/09/19 08/11/19 History cholecalciferol (vitamin D3) 1,000 unit PO DAILY 08/11/19 08/11/19 History [Vitamin D3] ferrous sulfate [iron] 325 mg PO DAILY 08/11/19 08/11/19 History fluticasone propionate 2 spray INTRANASAL DAILY PRN 08/11/19 08/11/19 History Past Med/Surg History Medical History BPH (benign prostatic hyperplasia) DDD (degenerative disc disease) History of hypertension controlled since weight loss Osteoarthritis Spinal stenosis B/L LE radiculopathy Surgical History History of appendectomy History of carpal tunnel surgery RIGHT HAND History of colonoscopy History of tonsillectomy and adenoidectomy Hx of hernia repair RIGHT INGUINAL Hx of toe surgery HAD TOENAIL REMOVED IN OFFICE 12/2018 Hx of tonsillectomy Previous back surgery Family History Mother Liver cancer Social History Preferred Language: Czech Communication Ability: Effective Management Aide Required: No Beliefs That Will Affect Care: None marital status: Current Living Situation: Spouse Current Living Situation Comment: 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) Feels Safe at Home: Yes Safety Concerns: Feels Safe At This Time Smoking Status: Former smoker Tobacco Type: cigarettes ; Do You Dip or Chew Tobacco: No ; Second Hand Exposure: No ; Hx Alcohol Use: Yes Alcohol type: hard liquor Hx Substance Use: No Review of Systems Review of Systems: As per HPI, all 10 systems reviewed, all other ROS negative Physical Exam Physical Exam: GENERAL: Comfortable, no respiratory distress SKIN: Normal color, warm HEENT: Fries palpebral conjunctivae, no ptosis, dry buccal mucosa NECK : Supple, no tenderness CHEST : Decreased breath sounds, no tenderness HEART : RRR, no obvious murmurs ABDOMEN: Some distention, epigastric tenderness EXTREMITIES : No LE swelling/tenderness, no other conspicuous deformities noted NEUROLOGIC : Coherent, no facial asymmetry, no other gross focality Results & Data Vital Signs (Past 12 Hours) Vital Signs Temp Pulse Pulse Resp BP Pulse Ox 08/11/19 21:35 75 18 97 08/11/19 21:30 79 22 115/70 94 08/11/19 21:00 77 26 H 117/72 94 08/11/19 20:43 85 L 08/11/19 20:30 71 22 112/65 91 08/11/19 20:00 85 23 117/66 92 08/11/19 19:45 83 29 H 127/72 92 08/11/19 19:00 84 33 H 137/68 91 08/11/19 18:49 92 08/11/19 18:38 78 21 127/75 92 08/11/19 18:25 36.4 C L 77 17 127/75 93 Laboratory Results Laboratory Results WBC 9.65 K/uL (4.8-10.8) 08/11/19 18:45 RBC 4.93 M/uL (4.7-6.1) 08/11/19 18:45 Hgb 16.1 g/dL (14.0-18.0) 08/11/19 18:45 Hct 46.5 % (42-52) 08/11/19 18:45 MCV 94.3 fL (80-100) 08/11/19 18:45 MCH 32.7 pg (25-34) 08/11/19 18:45 MCHC 34.6 g/dL (32-36) 08/11/19 18:45 RDW Std Deviation 52.0 fL (36.4-46.3) H 08/11/19 18:45 RDW Coeff of Jocelyn 15.1 % (11.5-14.5) H 08/11/19 18:45 Plt Count 173 K/uL (130-400) 08/11/19 18:45 MPV 9.6 fL (7.4-10.4) 08/11/19 18:45 Immature Gran % (Auto) 0.2 % 08/11/19 18:45 Neut % (Auto) 94.6 % 08/11/19 18:45 Lymph % (Auto) 2.4 % 08/11/19 18:45 [place] % (Auto) 2.3 % 08/11/19 18:45 Eos % (Auto) 0.4 % 08/11/19 18:45 Baso % (Auto) 0.1 % 08/11/19 18:45 Immature Gran # (Auto) 0.02 K/uL (0.00-0.02) 08/11/19 18:45 Neut # (Auto) 9.13 K/uL (1.4-6.5) H 08/11/19 18:45 Lymph # (Auto) 0.23 K/uL (1.2-3.4) L 08/11/19 18:45 [place] # (Auto) 0.22 K/uL (0.11-0.59) 08/11/19 18:45 Eos # (Auto) 0.04 K/uL (0-0.5) 08/11/19 18:45 Baso # (Auto) 0.01 K/uL (0-0.2) 08/11/19 18:45 Sodium 142 mmol/L (136-145) 08/11/19 18:45 Potassium 3.6 mmol/L (3.5-5.1) 08/11/19 18:45 Chloride 110 mmol/L (98-107) H 08/11/19 18:45 Carbon Dioxide 27 mmol/L (21-32) 08/11/19 18:45 Anion Gap 5.0 (3-11) 08/11/19 18:45 BUN 18 mg/dl (7-18) 08/11/19 18:45 Creatinine 0.74 mg/dl (0.6-1.4) 08/11/19 18:45 Est Cr Clr Drug Dosing 75.6 ml/min 08/11/19 18:45 Est GFR ( Amer) 98.9 08/11/19 18:45 Est GFR (Non-Af Amer) 85.3 08/11/19 18:45 BUN/Creatinine Ratio 24.5 (10-20) H 08/11/19 18:45 Glucose 106 mg/dl (70-99) H 08/11/19 18:45 Lactate 1.5 mmol/L (0.4-2.0) 08/11/19 18:45 Calcium 9.2 mg/dl (8.5-10.1) 08/11/19 18:45 Magnesium 2.0 mg/dl (1.8-2.4) 08/11/19 18:45 Total Bilirubin 3.4 mg/dl (0.2-1) H 08/11/19 18:45 AST 672 U/L (15-37) H 08/11/19 18:45 ALT 320 U/L (12-78) H 08/11/19 18:45 Alkaline Phosphatase 188 U/L (45-117) H 08/11/19 18:45 Troponin I < 0.015 ng/ml (0-0.045) 08/11/19 18:45 Total Protein 6.9 gm/dl (6.4-8.2) 08/11/19 18:45 Albumin 3.6 gm/dl (3.4-5.0) 08/11/19 18:45 Globulin 3.3 gm/dl (2.5-4.0) 08/11/19 18:45 Albumin/Globulin Ratio 1.1 (0.9-2) 08/11/19 18:45 Lipase 71070 U/L (73-393) H 08/11/19 18:45 Urine Color Dark Yellow 08/11/19 19:00 Urine Appearance Turbid (Clear) A 08/11/19 19:00 Urine pH 5.0 (4.5-7.5) 08/11/19 19:00 Ur Specific [place] 1.031 (1.000-1.030) H 08/11/19 19:00 Urine Protein 1+ (Negative) H 08/11/19 19:00 Urine Glucose (UA) Negative (Negative) 08/11/19 19:00 Urine Ketones Negative (Negative) 08/11/19 19:00 Urine Blood Trace (Negative) H 08/11/19 19:00 Urine Nitrite Positive (Negative) A 08/11/19 19:00 Urine Bilirubin 2+ (Negative) H 08/11/19 19:00 Urine Urobilinogen Positive (Negative) H 08/11/19 19:00 Ur Leukocyte Esterase 1+ (Negative) H 08/11/19 19:00 Urine WBC (Auto) 10-30 /hpf (0-5) H 08/11/19 19:00 Urine RBC (Auto) 0-4 /hpf (0-4) 08/11/19 19:00 U Hyaline Cast (Auto) 1-5 /lpf (0-5) 08/11/19 19:00 U Epithel Cells (Auto) >30 /lpf (0-5) H 08/11/19 19:00 Urine Bacteria (Auto) Negative (Negative) 08/11/19 19:00 Ur Renal Epithelial Cell Not Reportable 08/11/19 19:00 Urine Crystals Not Reportable 08/11/19 19:00 Calcium Oxalate Crystal Present (None Prsent) A 08/11/19 19:[address] abdomen pelvis: 1. Findings are consistent with acute pancreatitis. Correlation with clinical findings and serum amylase/lipase levels will be required. 2. The pancreas enhances homogeneously. The splenic vein is patent and there is no organized peripancreatic fluid collection. 3. Cardiomegaly and emphysema. 4. A 9 mm irregular pulmonary nodule is again seen in the right lower lobe. This is pathologically indeterminant but morphologically concerning. Neoplasm is the diagnosis of exclusion and nonemergent follow-up with a thoracic surgeon is recommended. 5. Advanced colonic diverticulosis without CT evidence of acute diverticulitis. 6. Large bladder calculi are identified. There are also large stones located within the prostatic urethra. 7. Trace free fluid is noted in the pelvis. 8. Right-sided nephrolithiasis. Chest x-ray : Cardiomegaly and emphysema with no active disease in the chest. EKG as per my interpretation : Rate 80, NSR, LAD, LAFB, T wave flattening lateral leads
[2019-08-11] MEDS ORDERED: cefTRIAXone SODIUM 1000MG/50ML D5W IV ONE (22:31)
[2019-08-11] MEDS: cefTRIAXone SODIUM 1,000 MG/50 ML BAG IV SCH (22:33)
[2019-08-11] MEDS ORDERED: HYDROmorphone INJ 0.5 MG/0.5 ML SYR IV PRN (23:08)
[2019-08-11] MEDS ORDERED: PROMETHAZINE HCL 12.5 MG in SODIUM CHLORIDE 0.9% 50 ML IV PRN (23:08)
[2019-08-11] MEDS ORDERED: OXYCODONE HCL IR 5 MG TAB (IMMEDIATE RELEASE) PO PRN (23:08)
[2019-08-11] MEDS: LACTATED RINGER'S 1,000 ML IV SCH (23:48)
--- NOTE | 2019-08-12 01:54 | Emergency Department Note ---
Entered by Davon Baxter acting as a scribe for Jc Jain MD History of Present Illness General Chief complaint: Chest Pain Stated complaint: CHEST PAIN Time Seen by Provider: 08/11/19 18:32 Source: patient History of Present Illness Onset (ago): hour(s) (4.5) Location: chest (lower, central) Pain Consistency: + constant Quality: + dull Relieved By: + none Exacerbated By: + other (pressing on it) Associated symptoms: + denies other symptoms (fevers, vomiting, diarrhea, black stool, bloody stools, urinary symptoms, chest pressure, and chest tightness) and + other (abdominal pain); no shortness of breath The patient is an 84 y/o male who presents to the ED w/ CC of constant, dull, lower, central chest pain beginning 4.5 hours ago. The patient states his symptoms began when he was sitting down in a chair. He reports pressing on his chest worsens his symptoms and causes them to radiate into his abdomen. The patient notes a history of a hernia, appendectomy, and cholecystectomy. Nothing makes his symptoms better. He denies shortness of breath, fevers, vomiting, diarrhea, black stool, bloody stools, urinary symptoms, chest pressure, and chest tightness. The patient states he almost fell two weeks ago and has pain to his right thigh muscle. He is requesting an x-ray. Nursing staff notes ALS was on scene but the patient came in BLS. The patient notes he has a kidney stone that is to be treated with urology this week. Home Medications Home Medications Medication Instructions Recorded Confirmed Type acetaminophen [Acetaminophen Extra 1,000 - 1,500 mg PO Q6H PRN 11/11/18 08/11/19 History Strength] naproxen 250 - 500 mg PO BID PRN 11/11/18 08/11/19 History tamsulosin 0.4 mg PO QPM 11/11/18 08/11/19 History dutasteride 0.5 mg PO QPM 08/09/19 08/11/19 History cholecalciferol (vitamin D3) 1,000 unit PO DAILY 08/11/19 08/11/19 History [Vitamin D3] ferrous sulfate [iron] 325 mg PO DAILY 08/11/19 08/11/19 History fluticasone propionate 2 spray INTRANASAL DAILY PRN 08/11/19 08/11/19 History Allergies Allergy/AdvReac Type Severity Reaction Status Date / Time hydrochlorothiazide Allergy Severe PANCREATITI Verified 08/11/19 19:25 S meloxicam Allergy Unknown RASH Verified 08/11/19 19:25 gabapentin AdvReac Severe Fainting Verified 08/11/19 19:25 Past Med/Surg History Medical History BPH (benign prostatic hyperplasia) DDD (degenerative disc disease) History of hypertension controlled since weight loss Osteoarthritis Spinal stenosis B/L LE radiculopathy Surgical History History of appendectomy History of carpal tunnel surgery RIGHT HAND History of colonoscopy History of tonsillectomy and adenoidectomy Hx of hernia repair RIGHT INGUINAL Hx of toe surgery HAD TOENAIL REMOVED IN OFFICE 12/2018 Hx of tonsillectomy Previous back surgery Family History Mother Liver cancer Social History Preferred Language: Wolof Communication Ability: Effective Shirt Sorter Required: No Beliefs That Will Affect Care: None marital status: Current Living Situation: Spouse Current Living Situation Comment: 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 and A total of 10 systems reviewed and were otherwise negative Physical Exam Vital Signs Vital Signs - 24 hr 08/11/19 18:25 08/11/19 18:38 08/11/19 18:49 Temperature 36.4 C L Temperature Source Oral Pulse Rate 77 78 Pulse Rate [Right Radial] Pulse Rate from SpO2 Sensor 82 Pulse Rhythm Regular Pulse Strength Normal Respiratory Rate 17 21 Respiratory Effort / Characteristics Non-Labored Respiratory Depth Normal Respiratory Pattern Regular Blood Pressure 127/75 127/75 Blood Pressure Mean 92 94 Pulse Oximetry 93 92 92 Oxygen Delivery Method Room Air Room Air Oxygen Flow Rate Sepsis Recent Fever Within 48 Hours No Sepsis New/Unexplained Change in Mental Status No Sepsis Action Taken by Nursing No Action Required Oxygen Flow Rate - Titration Pulse Oximetry Post Tiitration 08/11/19 19:00 08/11/19 19:45 08/11/19 20:00 Temperature Temperature Source Pulse Rate 84 83 85 Pulse Rate [Right Radial] Pulse Rate from SpO2 Sensor 83 89 83 Pulse Rhythm Pulse Strength Respiratory Rate 33 H 29 H 23 Respiratory Effort / Characteristics Respiratory Depth Respiratory Pattern Blood Pressure 137/68 127/72 117/66 Blood Pressure Mean 94 88 84 Pulse Oximetry 91 92 92 Oxygen Delivery Method Oxygen Flow Rate Sepsis Recent Fever Within 48 Hours Sepsis New/Unexplained Change in Mental Status Sepsis Action Taken by Nursing Oxygen Flow Rate - Titration Pulse Oximetry Post Tiitration 08/11/19 20:30 08/11/19 20:43 08/11/19 21:00 Temperature Temperature Source Pulse Rate 71 77 Pulse Rate [Right Radial] Pulse Rate from SpO2 Sensor 72 81 Pulse Rhythm Pulse Strength Respiratory Rate 22 26 H Respiratory Effort / Characteristics Respiratory Depth Respiratory Pattern Blood Pressure 112/65 117/72 Blood Pressure Mean 76 94 Pulse Oximetry 91 85 L 94 Oxygen Delivery Method Room Air Nasal Cannula Oxygen Flow Rate 0 Sepsis Recent Fever Within 48 Hours Sepsis New/Unexplained Change in Mental Status Sepsis Action Taken by Nursing Oxygen Flow Rate - Titration 2 Pulse Oximetry Post Tiitration 93 08/11/19 21:30 08/11/19 21:35 08/11/19 22:00 Temperature Temperature Source Pulse Rate 79 88 Pulse Rate [Right Radial] 75 Pulse Rate from SpO2 Sensor 79 88 Pulse Rhythm Pulse Strength Respiratory Rate 22 18 29 H Respiratory Effort / Characteristics Non-Labored Spontaneous Respiratory Depth Respiratory Pattern Blood Pressure 115/70 111/62 Blood Pressure Mean 86 79 Pulse Oximetry 94 97 91 Oxygen Delivery Method Room Air Nasal Cannula Oxygen Flow Rate 2 2 Sepsis Recent Fever Within 48 Hours Sepsis New/Unexplained Change in Mental Status Sepsis Action Taken by Nursing Oxygen Flow Rate - Titration Pulse Oximetry Post Tiitration Constitutional: Vital signs reviewed. Noted to be hypertensive. Eyes: Pupils are equal round reactive to light. Conjunctiva are noninjected. ENT: Pharynx is clear without erythema or exudate. Mucous membranes are moist. Neck supple without meningeal signs. Respiratory: Clear to auscultation bilaterally. Breath sounds are equal bilaterally. Cardiovascular: Regular rate and rhythm. No rubs or gallops. GI: Soft, nondistended, Epigastric tenderness without guarding. Bowel sounds are present. Musculoskeletal: No peripheral edema. No lower extremity tenderness. No tenderness to the right hip with FROM. Some pain with external rotation. Integumentary: No cyanosis. Neurological: The patient is awake and alert. No focal deficits. Psychiatric: Normal affect. Course Course 1834: Past medical records reviewed. The patient was evaluated in room A12B. A complete history and physical exam was performed. 2042: The patient states the last time that he has had pancreatitis was from a diuretic according to his PCP. He reports he drinks bourbon and has not had it in 10 days. I discussed his test results and suggested a hospitalist evaluation. He is in agreement with the treatment plan. 2050: I reviewed the patient's case with Dr. Duval, [facility] Hospitalist. He will evaluate the patient for further management. 2055: The patient's O2Sat dropped to 85. The nurse informed me this occurred while the patient was sleeping. His O2Sat is normal when he is awake. Administered Medications Ceftriaxone Sodium (Rocephin) 1,000 mg in 50 mls @ 100 mls/hr IV Q24H LOUIS Stop: 08/21/19 22:59 Last Infusion: 08/11/19 23:28 Dose: 0 mls/hr Documented by: [id number] Admin: 08/11/19 22:33 Dose: 100 mls/hr Documented by: [id number] Lactated Ringer's (Lr) 1,000 mls @ 200 mls/hr IV .Q5H [place] Stop: 09/10/19 23:07 Last Admin: 08/11/19 23:48 Dose: 200 mls/hr Documented by: [id number] Discontinued Medications Albuterol (Duoneb) 3 ml NEB NOW STA Stop: 08/11/19 21:15 Last Admin: 08/11/19 21:34 Dose: 3 ml Documented by: [id number] Ceftriaxone Sodium (Rocephin) Confirm Administered Dose 1,000 mg IV .STK-MED ONE Stop: 08/11/19 22:32 Last Admin: 08/11/19 22:33 Dose: Not Given Documented by: [id number] Lactated Ringer's (Lr) 1,000 mls @ 500 mls/hr IV .Q2H STA Stop: 08/11/19 23:14 Last Infusion: 08/11/19 23:49 Dose: 0 mls/hr Documented by: [id number] Admin: 08/11/19 21:53 Dose: 500 mls/hr Documented by: [id number] Ioversol (Optiray 320 100ml) 94 ml IV ONCE PRN PRN Reason: Interaction Checking Stop: 08/15/19 19:41 Last Admin: 08/11/19 19:42 Dose: 94 ml Documented by: [id number] Morphine Sulfate (Morphine Sulfate) 2 mg IV NOW STA Stop: 08/11/19 18:43 Last Admin: 08/11/19 19:14 Dose: 2 mg Documented by: [id number] Morphine Sulfate (Morphine Sulfate) Confirm Administered Dose 2 mg .ROUTE .STK- MED ONE Stop: 08/11/19 19:12 Last Admin: 08/11/19 19:13 Dose: Not Given Documented by: [id number] Morphine Sulfate (Morphine Sulfate) 4 mg IV NOW STA Stop: 08/11/19 20:53 Last Admin: 08/11/19 21:00 Dose: Not Given Documented by: [id number] Ondansetron HCl (Zofran) 4 mg IV NOW STA Stop: 08/11/19 18:43 Last Admin: 08/11/19 19:13 Dose: 4 mg Documented by: [id number] Ondansetron HCl (Zofran) 4 mg IV NOW STA Stop: 08/11/19 20:53 Last Admin: 08/11/19 21:00 Dose: Not Given Documented by: [id number] Medical Decision Making Differential Diagnosis Differential diagnosis includes: choledocholithiasis, PUD, pancreatitis, VT, kidney stone, mesenteric ischemia Medical Records Attestation: I reviewed the patient's medical records. I did perform a limited focused review of portions of the patient's old chart on the electronic medical record. The patient had a negative dobutamine stress test in December of last year. Home Medications Current Medication List: was personally reviewed by me Laboratory Data Attestation: I reviewed the patient's lab results. Result diagrams: 08/11/19 18:45 08/11/19 18:45 Lab Results 08/11/19 08/11/19 08/11/19 Range/Units 18:45 18:45 18:45 WBC 9.65 (4.8-10.8) K/uL RBC 4.93 (4.7-6.1) M/uL Hgb 16.1 (14.0-18.0) g/dL Hct 46.5 (42-52) % MCV 94.3 (80-100) fL MCH 32.7 (25-34) pg MCHC 34.6 (32-36) g/dL RDW Std Deviation 52.0 H (36.4-46.3) fL RDW Coeff of Jocelyn 15.1 H (11.5-14.5) % Plt Count 173 (130-400) K/uL MPV 9.6 (7.4-10.4) fL Immature Gran % (Auto) 0.2 % Neut % (Auto) 94.6 % Lymph % (Auto) 2.4 % [place] % (Auto) 2.3 % Eos % (Auto) 0.4 % Baso % (Auto) 0.1 % Immature Gran # (Auto) 0.02 (0.00-0.02) K/uL Neut # (Auto) 9.13 H (1.4-6.5) K/uL Lymph # (Auto) 0.23 L (1.2-3.4) K/uL [place] # (Auto) 0.22 (0.11-0.59) K/uL Eos # (Auto) 0.04 (0-0.5) K/uL Baso # (Auto) 0.01 (0-0.2) K/uL Sodium 142 (136-145) mmol/L Potassium 3.6 (3.5-5.1) mmol/L Chloride 110 H (98-107) mmol/L Carbon Dioxide 27 (21-32) mmol/L Anion Gap 5.0 (3-11) BUN 18 (7-18) mg/dl Creatinine 0.74 (0.6-1.4) mg/dl Est Cr Clr Drug Dosing 75.6 ml/min Est GFR ( Amer) 98.9 Est GFR (Non-Af Amer) 85.3 BUN/Creatinine Ratio 24.5 H (10-20) Glucose 106 H (70-99) mg/dl Lactate 1.5 (0.4-2.0) mmol/L Calcium 9.2 (8.5-10.1) mg/dl Magnesium 2.0 (1.8-2.4) mg/dl Total Bilirubin 3.4 H (0.2-1) mg/dl AST 672 H (15-37) U/L ALT 320 H (12-78) U/L Alkaline Phosphatase 188 H (45-117) U/L Troponin I < 0.015 (0-0.045) ng/ml Total Protein 6.9 (6.4-8.2) gm/dl Albumin 3.6 (3.4-5.0) gm/dl Globulin 3.3 (2.5-4.0) gm/dl Albumin/Globulin Ratio 1.1 (0.9-2) Lipase 70393 H (73-393) U/L Urine Color Urine Appearance (Clear) Urine pH (4.5-7.5) Ur Specific [place] (1.000-1.030) Urine Protein (Negative) Urine Glucose (UA) (Negative) Urine Ketones (Negative) Urine Blood (Negative) Urine Nitrite (Negative) Urine Bilirubin (Negative) Urine Urobilinogen (Negative) Ur Leukocyte Esterase (Negative) Urine WBC (Auto) (0-5) /hpf Urine RBC (Auto) (0-4) /hpf U Hyaline Cast (Auto) (0-5) /lpf U Epithel Cells (Auto) (0-5) /lpf Urine Bacteria (Auto) (Negative) Ur Renal Epithelial Cell Urine Crystals Calcium Oxalate Crystal (None Prsent) 08/11/19 Range/Units 19:00 WBC (4.8-10.8) K/uL RBC (4.7-6.1) M/uL Hgb (14.0-18.0) g/dL Hct (42-52) % MCV (80-100) fL MCH (25-34) pg MCHC (32-36) g/dL RDW Std Deviation (36.4-46.3) fL RDW Coeff of Jocelyn (11.5-14.5) % Plt Count (130-400) K/uL MPV (7.4-10.4) fL Immature Gran % (Auto) % Neut % (Auto) % Lymph % (Auto) % [place] % (Auto) % Eos % (Auto) % Baso % (Auto) % Immature Gran # (Auto) (0.00-0.02) K/uL Neut # (Auto) (1.4-6.5) K/uL Lymph # (Auto) (1.2-3.4) K/uL [place] # (Auto) (0.11-0.59) K/uL Eos # (Auto) (0-0.5) K/uL Baso # (Auto) (0-0.2) K/uL Sodium (136-145) mmol/L Potassium (3.5-5.1) mmol/L Chloride (98-107) mmol/L Carbon Dioxide (21-32) mmol/L Anion Gap (3-11) BUN (7-18) mg/dl Creatinine (0.6-1.4) mg/dl Est Cr Clr Drug Dosing ml/min Est GFR ( Amer) Est GFR (Non-Af Amer) BUN/Creatinine Ratio (10-20) Glucose (70-99) mg/dl Lactate (0.4-2.0) mmol/L Calcium (8.5-10.1) mg/dl Magnesium (1.8-2.4) mg/dl Total Bilirubin (0.2-1) mg/dl AST (15-37) U/L ALT (12-78) U/L Alkaline Phosphatase (45-117) U/L Troponin I (0-0.045) ng/ml Total Protein (6.4-8.2) gm/dl Albumin (3.4-5.0) gm/dl Globulin (2.5-4.0) gm/dl Albumin/Globulin Ratio (0.9-2) Lipase (73-393) U/L Urine Color Dark Yellow Urine Appearance Turbid A (Clear) Urine pH 5.0 (4.5-7.5) Ur Specific [place] 1.031 H (1.000-1.030) Urine Protein 1+ H (Negative) Urine Glucose (UA) Negative (Negative) Urine Ketones Negative (Negative) Urine Blood Trace H (Negative) Urine Nitrite Positive A (Negative) Urine Bilirubin 2+ H (Negative) Urine Urobilinogen Positive H (Negative) Ur Leukocyte Esterase 1+ H (Negative) Urine WBC (Auto) 10-30 H (0-5) /hpf Urine RBC (Auto) 0-4 (0-4) /hpf U Hyaline Cast (Auto) 1-5 (0-5) /lpf U Epithel Cells (Auto) >30 H (0-5) /lpf Urine Bacteria (Auto) Negative (Negative) Ur Renal Epithelial Cell Not Reportable Urine Crystals Not Reportable Calcium Oxalate Crystal Present A (None Prsent) Imaging Data Radiologist's Impression: Radiology results as stated below per my review and the radiologist's interpretation: CT SCAN OF THE ABDOMEN AND PELVIS WITH IV CONTRAST CLINICAL HISTORY: Epigastric abdominal pain. COMPARISON STUDY: Abdominal CT dated 11/11/2018. TECHNIQUE: Following the IV administration of 94 cc of Optiray 320, CT scan of the abdomen and pelvis is performed from the lung bases to the proximal femora. Images are reviewed in the axial, sagittal, and coronal planes. IV contrast was administered without complication. A dose lowering technique was utilized adhering to the principles of ALARA. CT DOSE: 459.61 mGy.cm FINDINGS: Lung bases: The heart is enlarged and without pericardial effusion. The coronary arteries are densely calcified. There is a small hiatal hernia. Emphysema is change is noted. Scarring/atelectasis is present at both lung bases and there is chronic elevation of the left hemidiaphragm. No airspace consolidation or pleural effusion is identified. An irregular 9 mm pulmonary nodule is again seen in the right lower lobe on image #23. Liver: The contrast-enhanced liver is normal in size, contour, and attenuation. There is mild to moderate intrahepatic biliary ductal dilatation. The hepatic veins and portal veins are patent. Gallbladder: Surgically absent noting clips in the gallbladder fossa. Spleen: Normal in size and attenuation. Pancreas: The pancreas is mildly atrophic. There is extensive peripancreatic inflammation and fluid, typical in appearance for acute pancreatitis. The gland enhances homogeneously. The splenic vein is patent. No organized peripancreatic fluid collection is identified. 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 Adrenal glands: A 1.6 cm right adrenal nodule is unchanged from previous. This likely represents an adenoma but cannot be definitely characterized due to the presence of IV contrast. The left adrenal gland is normal in appearance. Kidneys: The contrast enhanced demonstrate cortical atrophy and are without hydronephrosis. The kidneys enhance symmetrically. Scattered subcentimeter cortical hypodensities likely represent cysts but are too small for definitive characterization. A 4 mm nonobstructing calculus is seen in the right lower pole. Abdominal vasculature: There is advanced atherosclerotic calcification and mild ectasia of the abdominal aorta. Bowel: No bowel obstruction is seen. There is a large duodenal diverticulum. Mild wall thickening and hyperemia of the duodenum is likely related to adjacent pancreatitis. There is advanced colonic diverticulosis without CT evidence of acute diverticulitis. The appendix is not identified and reported surgically absent. Peritoneum: There is trace free fluid in the pelvis. No intraperitoneal free air is seen. There is a small fat-containing umbilical hernia. Lymphadenopathy: Prominent peripancreatic lymph nodes measure up to 9 mm in sh ort axis. Pelvic viscera: The prostate gland is enlarged and heterogeneous, measuring 5.6 cm in transverse diameter. There is median lobe hypertrophy. Although decompressed, the bladder wall appears thickened and trabeculated indicating chronic outlet obstruction. Large bladder calculi are identified and measure up to 2.6 cm. There are large calcifications in the prostate gland located within the prostatic urethra. These are similar to previous. Skeletal structures: The skeletal structures are osteopenic. There is moderate to advanced lumbosacral spondylosis with evidence of previous lumbar laminectomy. There is degenerative change noted in the sacroiliac joints with partial fusion seen on the right. No lytic or blastic lesions are seen. IMPRESSION: 1. Findings are consistent with acute pancreatitis. Correlation with clinical findings and serum amylase/lipase levels will be required. 2. The pancreas enhances homogeneously. The splenic vein is patent and there is no organized peripancreatic fluid collection. 3. Cardiomegaly and emphysema. 4. A 9 mm irregular pulmonary nodule is again seen in the right lower lobe. This is pathologically indeterminant but morphologically concerning. Neoplasm is the diagnosis of exclusion and nonemergent follow-up with a thoracic surgeon is r ecommended. 5. Advanced colonic diverticulosis without CT evidence of acute diverticulitis. 6. Large bladder calculi are identified. There are also large stones located within the prostatic urethra. 7. Trace free fluid is noted in the pelvis. 8. Right-sided nephrolithiasis. 9. Additional findings as above. ACT 112: Negative or not required by law. Electronically signed by: Javid Mendoza M.D. 08/11/2019 8:03 PM TWO VIEW CHEST CLINICAL HISTORY: Atypical chest pain. FINDINGS: PA and lateral chest radiographs are compared to study dated 10/26/2018. The heart is enlarged noting atherosclerotic calcification of the thoracic aorta. The pulmonary vasculature is noncongested. Emphysema and chronic interstitial thickening are similar to previous. There is bibasilar scarring/atelectasis. No airspace consolidation or pleural effusion is identified. There is no pneumothorax. The skeletal structures are osteopenic. The bony thorax appears intact. Cholecystectomy clips are noted in the right upper quadrant. IMPRESSION: Cardiomegaly and emphysema with no active disease in the chest. ACT 112: Negative or not required by law. Electronically signed by: Javid Mendoza M.D. 08/11/2019 7:44 PM SINGLE VIEW PELVIS; 2 VIEWS RIGHT HIP CLINICAL HISTORY: Right leg injury. FINDINGS: An AP view of the pelvis with AP and frog-leg views of the right hip are correlated with pelvic CT dated 11/11/2018. The skeletal structures are osteopenic. There is no radiographic evidence of acute fracture involving the hips or bony pelvis. Mild degenerative joint space narrowing is present in both hips. The sacroiliac joints are normal as visualized. Lumbosacral spondylosis is partially imaged. Enthesophytes arise from the anterior superior iliac spines. Large bladder calculi are noted in the pelvis. The overlying soft tissues are normal as imaged. IMPRESSION: 1. No acute bony abnormality is seen involving the hips or pelvis. 2. Large bladder calculi are noted in the pelvis. Electronically signed by: Javid Mendoza M.D. 08/11/2019 7:43 PM ECG Data Attestation: I personally reviewed and interpreted this ECG as follows: Indication: + chest pain Rate (beats per minute): 80 Rhythm: + normal sinus ECG Intervals/blocks: + Prolonged QT ECG ST segments: no ST elevation ECG Findings: + Other (Biphasic T-waves anterioseptally.); no PVCs Blood Pressure Blood Pressure Findings: Elevated blood pressure Blood Pressure Disposition: further management by hospitalist JANELLE Narrative I did evaluate the patient as noted above. The patient is presenting with lower chest and upper abdominal pain. On exam he is tender in the epigastric region. IV access was established. The patient was placed on a continuous quality assurance monitor final. I did order and personally review the patient's 12-lead EKG as described above. He has a prolonged QT and some nonspecific T wave changes. No STEMI is noted. I did order and personally reviewed the images of the patient's chest/pelvis and right hip x-ray as described above. Chest x-ray is unremarkable. Hip x-ray showed bladder stones but no fracture. I did order a urine analysis. He does appear to have calcium oxalate crystals consistent with his history of kidney stones. He also has a UTI. I did order and review the patient's blood work as noted in the electronic medical record. His white blood cell count is not elevated. Liver function tests are elevated and lipase is over 28,000. I did order a CT of the abdomen and pelvis. I did review the images myself as well as the radiology report as described above. He has acute pancreatitis. No hydronephrosis or ureteral stones are noted. I did treat the patient with IV morphine and Zofran. The nurse noted that after receiving the medication he did develop some mild desaturation when he fell asleep but it immediately improved once he woke up. I did discuss the test results with him. I did discuss the case with the hospitalist and outpatient case manager. Impression & Plan Acute pancreatitis, Abnormal LFTs, UTI (urinary tract infection), Injury of leg, right Discharge Plan Visit Data *Final* Discharge Date/Time: 08/11/19 22:49 Chief Complaint: Chest Pain Stated Complaint: CHEST PAIN ED Provider: Jc Jain Discharge Problem: Acute pancreatitis, Abnormal LFTs, UTI (urinary tract infection), Injury of leg, right Patient Disposition: Being Evaluated by Hospitalist Discharge Instructions Interventions: ED Discharge Assessment Last Done: 08/11/19 22:49 Discharge Problem: Acute pancreatitis Qualifiers: Pancreatitis type: unspecified pancreatitis type Acute pancreatitis complication: unspecified Qualified Code(s): K85.90 - Acute pancreatitis without necrosis or infection, unspecified UTI (urinary tract infection) Qualifiers: Urinary tract infection type: site unspecified Hematuria presence: with hematuria Qualified Code(s): N39.0 - Urinary tract infection, site not specified Injury of leg, right Qualifiers: Encounter type: initial encounter Qualified Code(s): S89.91XA - Unspecified injury of right lower leg, initial encounter The scribe's documentation has been prepared under my direction and personally reviewed by me in its entirety. I confirm that the note above accurately reflects all work, treatment, procedures, and medical decision making performed by me.
[2019-08-12] MEDS: LACTATED RINGER'S 1,000 ML IV SCH ×3 (05:09→19:21)
[2019-08-12 06:00] LABS: Basophils # (auto) 0.01 K/uL (0-0.2); Basophils % (auto) 0.1 %; Eosinophils # (auto) 0.03 K/uL (0-0.5); Eosinophils % (auto) 0.2 %; Hematocrit (blood only) 42.6 % (42-52); Hemoglobin 14.7 g/dL (14.0-18.0); Immature Granulocytes # (auto) 0.04 K/uL (0.00-0.02); Immature Granulocytes % (auto) 0.3 %; Lymphocytes # (auto) 0.24 K/uL (1.2-3.4); Lymphocytes % (auto) 1.9 %; Mean Corpuscular Hemoglobin 32.5 pg (25-34); Mean Corpuscular Hgb Conc 34.5 g/dL (32-36); Mean Corpuscular Volume 94.2 fL (80-100); Mean Platelet Volume 9.8 fL (7.4-10.4); Monocytes # (auto) 0.42 K/uL (0.11-0.59); Monocytes % (auto) 3.2 %; Neutrophils # (auto) 12.19 K/uL (1.4-6.5); Neutrophils % (auto) 94.3 %; Platelet Count 181 K/uL (130-400); RDW Coefficient of Variation 15.2 % (11.5-14.5); RDW Standard Deviation 52.3 fL (36.4-46.3); Red Blood Count 4.52 M/uL (4.7-6.1); White Blood Count 12.93 K/uL (4.8-10.8)
[2019-08-12 06:32] LABS: Albumin Level 3.1 gm/dl (3.4-5.0); BUN Creatinine Ratio 22.4 (10-20); Calcium 8.9 mg/dl (8.5-10.1); Creatinine Clr Calc Pharmacy 73.6 ml/min; Est GFR (African American) 97.8; Est GFR (Non-African American) 84.4; Potassium 3.9 mmol/L (3.5-5.1)
[2019-08-12 07:01] LABS: Bilirubin,Total 2.4 mg/dl (0.2-1); Total Protein 6.1 gm/dl (6.4-8.2)
[2019-08-12] MEDS: ENOXAPARIN INJ 30 MG/0.3 ML SYR SQ SCH (08:12)
[2019-08-12] MEDS: FERROUS SULFATE 325 MG TAB PO SCH (08:12)
[2019-08-12] MEDS ORDERED: HYDROmorphone INJ 0.5 MG/0.5 ML SYR IV PRN (09:25)
--- NOTE | 2019-08-12 09:30 | Hospitalist Progress Note ---
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 complicated UTI History BPH, bladder stones No sepsis Follow urine cltx - cont. IV Ceftriaxone for now Hypertension - stable, BP at goal Past tobacco/alcohol abuse as per records DVT prophylaxis with Lovenox subcu Full code Subjective Patient lying in bed, in no acute distress, continues to report epigastric and right upper quadrant pain - better controlled now. Currently on IV LR. Evaluated by GI, plan for MRCP today. Patient may need ERCP tomorrow, this was discussed with the patient at bedside. He otherwise denies any fevers, chills, chest pain, shortness of breath, nausea or vomiting. Discussed his current pancreatitis, patient has a history of pancreatitis due to medications. He also reports though that he drinks bourbon fairly regularly. Review of Systems Review of Systems: All systems reviewed & are unremarkable except as noted in HPI & below Constitutional: no fever and no chills Respiratory: no cough and no dyspnea Cardiovascular: no chest pain, no palpitations and no edema Gastrointestinal: + abdominal pain (epigastric and RUQ); no nausea and no vomi ting Physical Exam Physical Exam: GENERAL: Elderly male, lying in bed, in no acute distress, on IV fluids HEENT: Normocephalic, atraumatic, EOMI, PERRL NECK : Supple, no tenderness CHEST : Normal to inspection, clear to auscultation b/l, no wheezing rhonchi or crackles noted HEART : RRR, no obvious murmurs ABDOMEN: Positive bowel sounds, soft, epigastric and RUQ tenderness to palpation (improved), nondistended EXTREMITIES : No LE swelling/tenderness, moves all 4 extremities spontaneously SKIN: warm, dry, well-perfused, no rashes or lesions NEUROLOGIC : Alert and oriented x3, no facial asymmetry, speech fluent, moves all extremities spontaneously Results & Data ([facility]) Vital Signs (Past 12 Hours) Vital Signs Temp Pulse Pulse Pulse Resp BP BP 08/12/19 08:19 36.5 C 66 16 08/11/19 23:11 36.4 C L 81 16 117/67 08/11/19 22:49 08/11/19 22:30 83 19 107/60 08/11/19 22:00 88 29 H 111/62 08/11/19 21:35 75 18 08/11/19 21:30 79 22 115/70 Pulse Ox 08/12/19 08:19 90 08/11/19 23:11 94 08/11/19 22:49 91 08/11/19 22:30 90 08/11/19 22:00 91 08/11/19 21:35 97 08/11/19 21:30 94 Laboratory Results 08/12/19 08/12/19 08/12/19 Range/Units 05:08 05:08 05:08 WBC 12.93 H (4.8-10.8) K/uL RBC 4.52 L (4.7-6.1) M/uL Hgb 14.7 (14.0-18.0) g/dL Hct 42.6 (42-52) % MCV 94.2 (80-100) fL MCH 32.5 (25-34) pg MCHC 34.5 (32-36) g/dL RDW Std Deviation 52.3 H (36.4-46.3) fL RDW Coeff of Jocelyn 15.2 H (11.5-14.5) % Plt Count 181 (130-400) K/uL MPV 9.8 (7.4-10.4) fL Immature Gran % (Auto) 0.3 % Neut % (Auto) 94.3 % Lymph % (Auto) 1.9 % Ralls % (Auto) 3.2 % Eos % (Auto) 0.2 % Baso % (Auto) 0.1 % Immature Gran # (Auto) 0.04 H (0.00-0.02) K/uL Neut # (Auto) 12.19 H (1.4-6.5) K/uL Lymph # (Auto) 0.24 L (1.2-3.4) K/uL Ralls # (Auto) 0.42 (0.11-0.59) K/uL Eos # (Auto) 0.03 (0-0.5) K/uL Baso # (Auto) 0.01 (0-0.2) K/uL Sodium 140 (136-145) mmol/L Potassium 3.9 (3.5-5.1) mmol/L Chloride 107 (98-107) mmol/L Carbon Dioxide 26 (21-32) mmol/L Anion Gap 7.0 (3-11) BUN 17 (7-18) mg/dl Creatinine 0.76 (0.6-1.4) mg/dl Est Cr Clr Drug Dosing 73.6 ml/min Est GFR ( Amer) 97.8 Est GFR (Non-Af Amer) 84.4 BUN/Creatinine Ratio 22.4 H (10-20) Glucose 103 H (70-99) mg/dl Lactate (0.4-2.0) mmol/L Calcium 8.9 (8.5-10.1) mg/dl Magnesium (1.8-2.4) mg/dl Total Bilirubin 2.4 H (0.2-1) mg/dl AST 373 H (15-37) U/L ALT 315 H (12-78) U/L Alkaline Phosphatase 176 H (45-117) U/L Troponin I (0-0.045) ng/ml Total Protein 6.1 L (6.4-8.2) gm/dl Albumin 3.1 L (3.4-5.0) gm/dl Globulin 3.0 (2.5-4.0) gm/dl Albumin/Globulin Ratio 1.0 (0.9-2) Lipase (73-393) U/L Urine Color Urine Appearance (Clear) Urine pH (4.5-7.5) Ur Specific [place] (1.000-1.030) Urine Protein (Negative) Urine Glucose (UA) (Negative) Urine Ketones (Negative) Urine Blood (Negative) Urine Nitrite (Negative) Urine Bilirubin (Negative) Urine Urobilinogen (Negative) Ur Leukocyte Esterase (Negative) Urine WBC (Auto) (0-5) /hpf Urine RBC (Auto) (0-4) /hpf U Hyaline Cast (Auto) (0-5) /lpf U Epithel Cells (Auto) (0-5) /lpf Urine Bacteria (Auto) (Negative) Ur Renal Epithelial Cell Urine Crystals Calcium Oxalate Crystal (None Prsent) Acetaminophen 2 L (10-30) ug/ml 08/11/19 08/11/19 08/11/19 Range/Units 19:00 18:45 18:45 WBC 9.65 (4.8-10.8) K/uL RBC 4.93 (4.7-6.1) M/uL Hgb 16.1 (14.0-18.0) g/dL Hct 46.5 (42-52) % MCV 94.3 (80-100) fL MCH 32.7 (25-34) pg MCHC 34.6 (32-36) g/dL RDW Std Deviation 52.0 H (36.4-46.3) fL RDW Coeff of Jocelyn 15.1 H (11.5-14.5) % Plt Count 173 (130-400) K/uL MPV 9.6 (7.4-10.4) fL Immature Gran % (Auto) 0.2 % Neut % (Auto) 94.6 % Lymph % (Auto) 2.4 % Ralls % (Auto) 2.3 % Eos % (Auto) 0.4 % Baso % (Auto) 0.1 % Immature Gran # (Auto) 0.02 (0.00-0.02) K/uL Neut # (Auto) 9.13 H (1.4-6.5) K/uL Lymph # (Auto) 0.23 L (1.2-3.4) K/uL Ralls # (Auto) 0.22 (0.11-0.59) K/uL Eos # (Auto) 0.04 (0-0.5) K/uL Baso # (Auto) 0.01 (0-0.2) K/uL Sodium (136-145) mmol/L Potassium (3.5-5.1) mmol/L Chloride (98-107) mmol/L Carbon Dioxide (21-32) mmol/L Anion Gap (3-11) BUN (7-18) mg/dl Creatinine (0.6-1.4) mg/dl Est Cr Clr Drug Dosing ml/min Est GFR ( Amer) Est GFR (Non-Af Amer) BUN/Creatinine Ratio (10-20) Glucose (70-99) mg/dl Lactate 1.5 (0.4-2.0) mmol/L Calcium (8.5-10.1) mg/dl Magnesium (1.8-2.4) mg/dl Total Bilirubin (0.2-1) mg/dl AST (15-37) U/L ALT (12-78) U/L Alkaline Phosphatase (45-117) U/L Troponin I (0-0.045) ng/ml Total Protein (6.4-8.2) gm/dl Albumin (3.4-5.0) gm/dl Globulin (2.5-4.0) gm/dl Albumin/Globulin Ratio (0.9-2) Lipase (73-393) U/L Urine Color Dark Yellow Urine Appearance Turbid A (Clear) Urine pH 5.0 (4.5-7.5) Ur Specific [place] 1.031 H (1.000-1.030) Urine Protein 1+ H (Negative) Urine Glucose (UA) Negative (Negative) Urine Ketones Negative (Negative) Urine Blood Trace H (Negative) Urine Nitrite Positive A (Negative) Urine Bilirubin 2+ H (Negative) Urine Urobilinogen Positive H (Negative) Ur Leukocyte Esterase 1+ H (Negative) Urine WBC (Auto) 10-30 H (0-5) /hpf Urine RBC (Auto) 0-4 (0-4) /hpf U Hyaline Cast (Auto) 1-5 (0-5) /lpf U Epithel Cells (Auto) >30 H (0-5) /lpf Urine Bacteria (Auto) Negative (Negative) Ur Renal Epithelial Cell Not Reportable Urine Crystals Not Reportable Calcium Oxalate Crystal Present A (None Prsent) Acetaminophen (10-30) ug/ml 08/11/19 Range/Units 18:45 WBC (4.8-10.8) K/uL RBC (4.7-6.1) M/uL Hgb (14.0-18.0) g/dL Hct (42-52) % MCV (80-100) fL MCH (25-34) pg MCHC (32-36) g/dL RDW Std Deviation (36.4-46.3) fL RDW Coeff of Jocelyn (11.5-14.5) % Plt Count (130-400) K/uL MPV (7.4-10.4) fL Immature Gran % (Auto) % Neut % (Auto) % Lymph % (Auto) % Ralls % (Auto) % Eos % (Auto) % Baso % (Auto) % Immature Gran # (Auto) (0.00-0.02) K/uL Neut # (Auto) (1.4-6.5) K/uL Lymph # (Auto) (1.2-3.4) K/uL Ralls # (Auto) (0.11-0.59) K/uL Eos # (Auto) (0-0.5) K/uL Baso # (Auto) (0-0.2) K/uL Sodium 142 (136-145) mmol/L Potassium 3.6 (3.5-5.1) mmol/L Chloride 110 H (98-107) mmol/L Carbon Dioxide 27 (21-32) mmol/L Anion Gap 5.0 (3-11) BUN 18 (7-18) mg/dl Creatinine 0.74 (0.6-1.4) mg/dl Est Cr Clr Drug Dosing 75.6 ml/min Est GFR ( Amer) 98.9 Est GFR (Non-Af Amer) 85.3 BUN/Creatinine Ratio 24.5 H (10-20) Glucose 106 H (70-99) mg/dl Lactate (0.4-2.0) mmol/L Calcium 9.2 (8.5-10.1) mg/dl Magnesium 2.0 (1.8-2.4) mg/dl Total Bilirubin 3.4 H (0.2-1) mg/dl AST 672 H (15-37) U/L ALT 320 H (12-78) U/L Alkaline Phosphatase 188 H (45-117) U/L Troponin I < 0.015 (0-0.045) ng/ml Total Protein 6.9 (6.4-8.2) gm/dl Albumin 3.6 (3.4-5.0) gm/dl Globulin 3.3 (2.5-4.0) gm/dl Albumin/Globulin Ratio 1.1 (0.9-2) Lipase 62665 H (73-393) U/L Urine Color Urine Appearance (Clear) Urine pH (4.5-7.5) Ur Specific [place] (1.000-1.030) Urine Protein (Negative) Urine Glucose (UA) (Negative) Urine Ketones (Negative) Urine Blood (Negative) Urine Nitrite (Negative) Urine Bilirubin (Negative) Urine Urobilinogen (Negative) Ur Leukocyte Esterase (Negative) Urine WBC (Auto) (0-5) /hpf Urine RBC (Auto) (0-4) /hpf U Hyaline Cast (Auto) (0-5) /lpf U Epithel Cells (Auto) (0-5) /lpf Urine Bacteria (Auto) (Negative) Ur Renal Epithelial Cell Urine Crystals Calcium Oxalate Crystal (None Prsent) Acetaminophen (10-30) ug/ml Diagnostic Findings CT with IV contrast 08/11/19: 1. Findings are consistent with acute pancreatitis. Correlation with clinical findings and serum amylase/lipase levels will be required. 2. The pancreas enhances homogeneously. The splenic vein is patent and there is no organized peripancreatic fluid collection. 3. Cardiomegaly and emphysema. 4. A 9 mm irregular pulmonary nodule is again seen in the right lower lobe. This is pathologically indeterminant but morphologically concerning. Neoplasm is the diagnosis of exclusion and nonemergent follow-up with a thoracic surgeon is recommended. 5. Advanced colonic diverticulosis without CT evidence of acute diverticulitis. 6. Large bladder calculi are identified. There are also large stones located within the prostatic urethra. 7. Trace free fluid is noted in the pelvis. 8. Right-sided nephrolithiasis. 9. Additional findings as above. MRCP 08/12/19: 1. The gallbladder is surgically absent. 2. Intra and extrahepatic biliary ductal dilatation are unchanged. 3. There is no clear evidence of choledocholithiasis, although the ampulla is not well assessed due to artifact from gas within adjacent duodenal diverticula. ERCP may be required for further assessment. 4. The pancreatic duct is normal in caliber. 5. There is evidence of acute pancreatitis. 6. Small volume abdominal ascites. 7. There are trace pleural effusions with increasing bibasilar consolidation as compared to yesterday. 8. Additional findings as above. Medications Administered Current Inpatient Medications Acetaminophen (Tylenol) 325 mg PO Q6H PRN PRN Reason: pain/fever Stop: 09/10/19 23:07 Enoxaparin Sodium (Lovenox) 30 mg SQ QAM [place] Stop: 09/11/19 08:59 Last Admin: 08/12/19 08:12 Dose: 30 mg Documented by: Ferrous Sulfate (Feosol) 325 mg PO DAILY [place] Stop: 09/11/19 08:59 Last Admin: 08/12/19 08:12 Dose: 325 mg Documented by: Hydromorphone HCl (Dilaudid) 0.5 mg IV Q4H PRN PRN Reason: Pain Stop: 08/25/19 23:07 Ceftriaxone Sodium (Rocephin) 1,000 mg in 50 mls @ 100 mls/hr IV Q24H [facility] Stop: 08/21/19 22:59 Last Infusion: 08/11/19 23:28 Dose: Infused Documented by: Lactated Ringer's (Lr) 1,000 mls @ 150 mls/hr IV .[id number] [facility] Stop: 09/10/19 23:07 Last Infusion: 08/12/19 07:54 Dose: 150 mls/hr Documented by: Promethazine HCl 12.5 mg/ (Sodium Chloride) 50.5 mls @ 202 mls/hr IV Q6H PRN PRN Reason: Nausea And Vomiting Stop: 09/10/19 23:07 Oxycodone HCl (Roxicodone Immediate Rel) 5 mg PO Q2H PRN PRN Reason: Pain Stop: 08/25/19 23:07 Tamsulosin HCl (Flomax) 0.4 mg PO QPM [facility] Stop: 09/11/19 20:59
[2019-08-12] MEDS ORDERED: OXYCODONE HCL IR 5 MG TAB (IMMEDIATE RELEASE) ONE (09:34)
[2019-08-12] MEDS: OXYCODONE HCL IR 5 MG TAB (IMMEDIATE RELEASE) PO PRN ×5 (09:36→20:15)
--- NOTE | 2019-08-12 10:01 | History & Physical Report ---
Date of Service August 12, 2019 History of Present Illness Chief Complaint: Abdominal pain Primary Care Provider: Iván Sethi DO 84 yo male with a history of a prior cholecystectomy, does drink alcohol, admi tted now with abdominal pain that was initially described as mild chest discomfort. The pain was 7/10 - constant mid epigastric area. He came in thru the ER, admitted thru medicinie given imaging c/w pancreatitis and abd pain and lipase elevation. He has a mild wbc count elevation- started on ceftriaxone. This morning when i see him - he does not appear to be clinically jaundiced, mentating well, reports pain is a bit better today cholo 5/10 today. He reports he has gotten MRI's before. He denies any current fevres, chills, confusion. Belly pain as per above. Moving his bowels. Allergies Allergy/AdvReac Type Severity Reaction Status Date / Time hydrochlorothiazide Allergy Severe PANCREATITI Verified 08/11/19 19:25 S meloxicam Allergy Unknown RASH Verified 08/11/19 19:25 gabapentin AdvReac Severe Fainting Verified 08/11/19 19:25 Home Medications Home Medications Medication Instructions Recorded Confirmed Type acetaminophen [Acetaminophen Extra 1,000 - 1,500 mg PO Q6H PRN 11/11/18 08/11/19 History Strength] naproxen 250 - 500 mg PO BID PRN 11/11/18 08/11/19 History tamsulosin 0.4 mg PO QPM 11/11/18 08/11/19 History dutasteride 0.5 mg PO QPM 08/09/19 08/11/19 History cholecalciferol (vitamin D3) 1,000 unit PO DAILY 08/11/19 08/11/19 History [Vitamin D3] ferrous sulfate [iron] 325 mg PO DAILY 08/11/19 08/11/19 History fluticasone propionate 2 spray INTRANASAL DAILY PRN 08/11/19 08/11/19 History Past Med/Surg History Medical History BPH (benign prostatic hyperplasia) DDD (degenerative disc disease) History of hypertension controlled since weight loss Osteoarthritis Spinal stenosis B/L LE radiculopathy Surgical History History of appendectomy History of carpal tunnel surgery RIGHT HAND History of colonoscopy History of tonsillectomy and adenoidectomy Hx of hernia repair RIGHT INGUINAL Hx of toe surgery HAD TOENAIL REMOVED IN OFFICE 12/2018 Hx of tonsillectomy Previous back surgery Family History Mother Liver cancer Social History Preferred Language: Spanish Communication Ability: Effective 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) Feels Safe at Home: Yes Safety Concerns: Feels Safe At This Time Smoking Status: Former smoker Tobacco Type: cigarettes ; Do You Dip or Chew Tobacco: No ; Second Hand Exposure: No ; Hx Alcohol Use: Yes Alcohol type: hard liquor Hx Substance Use: No Review of Systems All systems reviewed & are unremarkable except as noted in HPI & below Physical Exam Physical Exam: Well nourished elderly male in nad Eyes: PERRL, conjunctivae normal, anicteric sclerae Respiratory: normal respiratory effort, lungs clear to auscultation Cardiovascular: RRR, no murmur, no edema Gastrointestinal (Abdomen): normal bowel sounds, soft, nontender, no h epatosplenomegaly Skin: no rashes, warm and dry Results & Data Vital Signs (Past 12 Hours) Vital Signs Temp Pulse Pulse Resp BP BP Pulse Ox 08/12/19 08:19 36.5 C 66 16 90 08/11/19 23:11 36.4 C L 81 16 117/67 94 08/11/19 22:49 91 08/11/19 22:30 83 19 107/60 90 08/11/19 22:00 88 29 H 111/62 91 Labs all reviewed WBC count mild elevation TB 3.4 to 2.4 Ast/alt/alk phos elevation are all mild not entirely consistent with alcohol Imaging reviewed- s/p cholecsystectomy, with pancreatitis- no evidence of dilated cbd on imaging though with ih dilation Supervising Physician Co-Signing Physician Notes 84 yo male admitted overnite through the er with abdominal pain - mid epigastric area to ruq, prior cholecystectomy in the past. He is feeling better today. He is on ceftriaxone and receiving IV fluids. Admitting diagnosis is pancreatitis though no cbd dilation despite minor ast/alt/alk norma elevations. Etiology of his pancreatitis could be alcohol per history versus retained stone however no imaging to suggest that at this time. Would consider MRCP today if feasible, if not then abd earl to evaluate size of cbd. Continue current abx. Hold blood thinners. Potential for ERCP likely tomorrow if confirmed cbd dilation or stones. Ice chips prn, would keep npo for now, give IV LR if no cardiac conditions at a rate of 200-250 cc /hr.
--- NOTE | 2019-08-12 11:48 | Magnetic Resonance Report ---
MRCP CLINICAL HISTORY: Epigastric abdominal pain. Acute pancreatitis. COMPARISON STUDY: Abdominal CT dated 08/11/2019. TECHNIQUE: Abdominal MRCP is performed utilizing various T2-weighted sequences in the axial and coron al planes. IV contrast was not administered for this examination. 3-D reformats are created and asses sed. The examination is compromised by motion artifact. FINDINGS: The gallbladder is surgically absent. Intra and extrahepatic biliary ductal dilatation is similar to previous. The common bile duct measures up to 1.5 cm in diameter. No intraluminal filling defects are clearly identified to indicate choledocholithiasis. The ampulla is not well assessed due to artifact from gas within the adjacent duodenal diverticula. The pancreatic duct is normal in caliber. There is peripancreatic infiltration and trace fluid. This is consistent with acute pancreatitis. The re is trace perihepatic ascites, with fluid seen tracking in the right paracolic gutter. No organized peripancreatic fluid collection is identified. A 10 mm simple appearing cystic lesion in the pancrea tic tail is unchanged. 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 The unenhanced live r, spleen, and adrenal glands are grossly normal. The kidneys demonstrate mild cortical atrophy and a re without hydronephrosis. Scattered subcentimeter cysts are identified. The abdominal aorta is alexandre l in caliber. There is no evidence of bowel obstruction. A small hiatal hernia is noted. There are at least two duodenal diverticula. No upper abdominal lymphadenopathy is identified. The heart is enlarged and without pericardial effusion. There are trace pleural effusions with increa sing bibasilar consolidation as compared to yesterday. IMPRESSION: 1. The gallbladder is surgically absent. 2. Intra and extrahepatic biliary ductal dilatation are unchanged. 3. There is no clear evidence of choledocholithiasis, although the ampulla is not well assessed due t o artifact from gas within adjacent duodenal diverticula. ERCP may be required for further assessment . 4. The pancreatic duct is normal in caliber. 5. There is evidence of acute pancreatitis. 6. Small volume abdominal ascites. 7. There are trace pleural effusions with increasing bibasilar consolidation as compared to yesterday . 8. Additional findings as above. Dictated: 08/12/2019 11:14 AM Transcribed: 08/12/2019 11:37 AM Maira [id number] [email or web address] Electronically signed by: Javid Mendoza M.D. 08/12/2019 11:47 AM
--- NOTE | 2019-08-12 21:45 | Electrocardiogram Report ---
Test Reason : Blood Pressure : / mmHG Vent. Rate : 080 BPM Atrial Rate : 080 BPM P-R Int : 144 ms QRS Dur : 088 ms QT Int : 436 ms P-R-T Axes : 034 -26 065 degrees QTc Int : 502 ms Normal sinus rhythm Nonspecific ST and T wave abnormality Prolonged QT Abnormal ECG When compared with ECG of 11-JUN-2018 06:31, Premature atrial complexes are no longer Present Non-specific change in ST segment in Anterior leads Nonspecific T wave abnormality, worse in Anterolateral leads QT has lengthened Confirmed by Mike Bellamy ([id number]) on 08/12/2019 9:45:32 PM Referred By: REFERRED SELF Confirmed By:Mike Bellamy
[2019-08-12] MEDS: TAMSULOSIN HCL 0.4 MG CAP PO SCH (22:42)
[2019-08-12] MEDS: cefTRIAXone SODIUM 1,000 MG/50 ML BAG IV SCH (22:43)
[2019-08-13] MEDS: ACETAMINOPHEN 325 MG TAB PO PRN ×2 (00:21→06:36)
[2019-08-13] MEDS: OXYCODONE HCL IR 5 MG TAB (IMMEDIATE RELEASE) PO PRN ×2 (01:03→07:29)
[2019-08-13] MEDS: LACTATED RINGER'S 1,000 ML IV SCH ×3 (02:49→19:52)
[2019-08-13 05:27] LABS: Hematocrit (blood only) 39.5 % (42-52); Hemoglobin 13.4 g/dL (14.0-18.0); Mean Corpuscular Hemoglobin 32.4 pg (25-34); Mean Corpuscular Hgb Conc 33.9 g/dL (32-36); Mean Corpuscular Volume 95.6 fL (80-100); Mean Platelet Volume 9.8 fL (7.4-10.4); Platelet Count 140 K/uL (130-400); RDW Coefficient of Variation 15.5 % (11.5-14.5); RDW Standard Deviation 54.1 fL (36.4-46.3); Red Blood Count 4.13 M/uL (4.7-6.1); White Blood Count 8.16 K/uL (4.8-10.8)
[2019-08-13 05:44] LABS: Calcium 8.6 mg/dl (8.5-10.1); Creatinine Clr Calc Pharmacy 84.8 ml/min; Est GFR (African American) 103.6; Est GFR (Non-African American) 89.4; Potassium 3.4 mmol/L (3.5-5.1)
[2019-08-13] MEDS: ENOXAPARIN INJ 30 MG/0.3 ML SYR SQ SCH ×2 (08:43→08:53)
[2019-08-13] MEDS: FERROUS SULFATE 325 MG TAB PO SCH ×2 (08:45→08:53)
--- NOTE | 2019-08-13 09:12 | Gastroenterology Progress Note ---
Date of Service August 13, 2019 Assessment & Plan (1) Dilated bile duct: Mr. Melo has elevated lipase, LFTs and dilated CBD on MRCP, suggestive of acute pancreatitis from gallstone pancreatitis likely with choledocholithiasis. 1. NPO 2. ERCP today by Dr. Carranza. 3. Will check INR, lipase today. 4. Reviewed the procedure with indication, complications (bleeding, infection, worsened pancreatitis) with pt who would like to go forward with the procedure. Present on Admission?: Yes Supervising Physician Co-Signing Physician Notes I performed a history and physical examination of the patient, including specifically on physical exam - soft, nontender abdomen. I have discussed the patient's management with Ana. Please refer to the nurse practitioner's no te for the documented findings and plan of care. Patient with dilated CBD to 15 mm and recurrent pancreatitis with elevated bilirubin, high probability for Choledocholithiasis. ERCP today. Subjective Mr. Kole Melo is an 84 yr old male pt of Dr. Sethi with a hx of HTN, BPH, prior pancreatitis (? hydrochlorothiazide vs ETOH induced), aortic valve sclerosis who was admitted on 08/11 for epigastric/RUQ pain which resolved yesterday. WBC 12 on arrival->8 today. Lipase 28k LFTs elevated: T Bili 3.4->2.4, AST 672->373, ALT 315->320, Alk Phos 188->176. MRCP with 15mm CBD. CT with pancreatitis post cholecytectomy. Pt feels well today, is awake, alert, reading the newspaper, is hemodynamically stable and NPO. States he understands today's plan is for ERCP today for likely choledocholithiasis. Review of Systems Review of Systems: ROS: Gen: Denies weakness, fevers, weight loss Eyes: No eye redness, or pain, no recent vision changes Resp: No SOB, no cough Cardio: No palpitations/irregular beats, no chest pain GI: today - no pain, nausea, vomiting or diarrhea : Denies pain on urination Skin: No jaundice, itching or new rashes Physical Exam Constitutional: WD/WN, vitals as above Eyes: PERRL, conjunctivae normal, anicteric sclerae ENMT: external ear and nose normal, oropharynx normal Neck: trachea midline, no thyromegaly Respiratory: normal respiratory effort, lungs clear to auscultation (except few fine crackle left base) Cardiovascular: RRR, no murmur, no edema Gastrointestinal (Abdomen): normal bowel sounds, soft, nontender, no hepatosplenomegaly Skin: no rashes, warm and dry Neurologic: PERRL, EOMI, accommodation nl, no face palsy, no dysarthria Psychiatric: A+Ox3, euthymic affect Lymphatic: no cervical or axillary lymphadenopathy Results & Data Vital Signs (Past 12 Hours) Vital Signs Temp Pulse Resp BP Pulse Ox 08/13/19 07:27 36.6 C 54 L 16 121/68 93 08/12/19 23:02 37.4 C 65 16 121/[address] with IV contrast 08/11/19: 1. Findings are consistent with acute pancreatitis. Correlation with clinical findings and serum amylase/lipase levels will be required. 2. The pancreas enhances homogeneously. The splenic vein is patent and there is no organized peripancreatic fluid collection. 3. Cardiomegaly and emphysema. 4. A 9 mm irregular pulmonary nodule is again seen in the right lower lobe. This is pathologically indeterminant but morphologically concerning. Neoplasm is the diagnosis of exclusion and nonemergent follow-up with a thoracic surgeon is recommended. 5. Advanced colonic diverticulosis without CT evidence of acute diverticulitis. 6. Large bladder calculi are identified. There are also large stones located within the prostatic urethra. 7. Trace free fluid is noted in the pelvis. 8. Right-sided nephrolithiasis. 9. Additional findings as above. MRCP 08/12/19: 1. The gallbladder is surgically absent. 2. Intra and extrahepatic biliary ductal dilatation are unchanged. 3. There is no clear evidence of choledocholithiasis, although the ampulla is not well assessed due to artifact from gas within adjacent duodenal diverticula. ERCP may be required for further assessment. 4. The pancreatic duct is normal in caliber. 5. There is evidence of acute pancreatitis. 6. Small volume abdominal ascites. 7. There are trace pleural effusions with increasing bibasilar consolidation as compared to yesterday. 8. Additional findings as above.
[2019-08-13 09:30] LABS: INR 1.3 (0.9-1.1); Prothrombin Time 12.9 Seconds (9.0-12.0)
--- NOTE | 2019-08-13 09:56 | Hospitalist Progress Note ---
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 complicated UTI History BPH, bladder stones No sepsis Follow urine cltx - cont. IV Ceftriaxone for now Hypokalemia - d/t IVF - will replete and monitor Hypertension - stable, BP at goal Past tobacco/alcohol abuse as per records DVT prophylaxis with Lovenox subcu Full code Subjective No acute events overnight. Patient is lying in bed, in no acute distress, continues to report epigastric pain - better controlled now. Currently on IV LR. Evaluated by GI, plan for ERCP today. He otherwise denies any fevers, chills, chest pain, shortness of breath, nausea or vomiting. Review of Systems Review of Systems: All systems reviewed & are unremarkable except as noted in HPI & below As per HPI, all 10 systems reviewed, all other ROS negative Constitutional: no fever and no chills Respiratory: no cough and no dyspnea Cardiovascular: no chest pain and no palpitations Gastrointestinal: + abdominal pain (epigastric (improved)); no nausea and no vomiting Physical Exam Physical Exam: GENERAL: Elderly male, lying in bed, in no acute distress, on IV fluids HEENT: Normocephalic, atraumatic, EOMI, PERRL NECK : Supple, no tenderness CHEST : Normal to inspection, clear to auscultation b/l, no wheezing rhonchi or crackles noted HEART : RRR, no obvious murmurs ABDOMEN: Positive bowel sounds, soft, epigastric tenderness to palpation (improved), nondistended EXTREMITIES : No LE swelling/tenderness, moves all 4 extremities spontaneously SKIN: warm, dry, well-perfused, no rashes or lesions NEUROLOGIC : Alert and oriented x3, no facial asymmetry, speech fluent, moves all extremities spontaneously Results & Data ([facility]) Vital Signs (Past 12 Hours) Vital Signs Temp Pulse Resp BP Pulse Ox 08/13/19 07:27 36.6 C 54 L 16 121/68 93 08/12/19 23:02 37.4 C 65 16 121/67 92 Laboratory Results 08/13/19 08/13/19 08/13/19 Range/Units 09:13 04:54 04:54 WBC (4.8-10.8) K/uL RBC (4.7-6.1) M/uL Hgb (14.0-18.0) g/dL Hct (42-52) % MCV (80-100) fL MCH (25-34) pg MCHC (32-36) g/dL RDW Std Deviation (36.4-46.3) fL RDW Coeff of Jocelyn (11.5-14.5) % Plt Count (130-400) K/uL MPV (7.4-10.4) fL PT 12.9 H (9.0-12.0) Seconds INR 1.3 H (0.9-1.1) Sodium 139 (136-145) mmol/L Potassium 3.4 L (3.5-5.1) mmol/L Chloride 108 H (98-107) mmol/L Carbon Dioxide 27 (21-32) mmol/L Anion Gap 4.0 (3-11) BUN 13 (7-18) mg/dl Creatinine 0.66 (0.6-1.4) mg/dl Est Cr Clr Drug Dosing 84.8 ml/min Est GFR ( Amer) 103.6 Est GFR (Non-Af Amer) 89.4 Fasting Glucose 67 L (70-99) mg/dl Calcium 8.6 (8.5-10.1) mg/dl Magnesium 2.0 (1.8-2.4) mg/dl Lipase 1232 H (73-393) U/L 08/13/19 Range/Units 04:54 WBC 8.16 (4.8-10.8) K/uL RBC 4.13 L (4.7-6.1) M/uL Hgb 13.4 L (14.0-18.0) g/dL Hct 39.5 L (42-52) % MCV 95.6 (80-100) fL MCH 32.4 (25-34) pg MCHC 33.9 (32-36) g/dL RDW Std Deviation 54.1 H (36.4-46.3) fL RDW Coeff of Jocelyn 15.5 H (11.5-14.5) % Plt Count 140 (130-400) K/uL MPV 9.8 (7.4-10.4) fL PT (9.0-12.0) Seconds INR (0.9-1.1) Sodium (136-145) mmol/L Potassium (3.5-5.1) mmol/L Chloride (98-107) mmol/L Carbon Dioxide (21-32) mmol/L Anion Gap (3-11) BUN (7-18) mg/dl Creatinine (0.6-1.4) mg/dl Est Cr Clr Drug Dosing ml/min Est GFR ( Amer) Est GFR (Non-Af Amer) Fasting Glucose (70-99) mg/dl Calcium (8.5-10.1) mg/dl Magnesium (1.8-2.4) mg/dl Lipase (73-393) U/L Medications Administered Current Inpatient Medications Acetaminophen (Tylenol) 325 mg PO Q6H PRN PRN Reason: pain/fever Stop: 09/10/19 23:07 Last Admin: 08/13/19 06:36 Dose: 325 mg Documented by: Enoxaparin Sodium (Lovenox) 30 mg SQ QAM [facility] Stop: 09/11/19 08:59 Last Admin: 08/13/19 08:53 Dose: Not Given Documented by: Ferrous Sulfate (Feosol) 325 mg PO DAILY [facility] Stop: 09/11/19 08:59 Last Admin: 08/13/19 08:53 Dose: Not Given Documented by: Hydromorphone HCl (Dilaudid) 0.5 mg IV Q4H PRN PRN Reason: Pain Stop: 08/25/19 23:07 Ceftriaxone Sodium (Rocephin) 1,000 mg in 50 mls @ 100 mls/hr IV Q24H [facility] Stop: 08/21/19 22:59 Last Infusion: 08/12/19 23:20 Dose: Infused Documented by: Lactated Ringer's (Lr) 1,000 mls @ 150 mls/hr IV .Q6H40M [facility] Stop: 09/10/19 23:07 Last Admin: 08/13/19 08:43 Dose: 150 mls/hr Documented by: Promethazine HCl 12.5 mg/ (Sodium Chloride) 50.5 mls @ 202 mls/hr IV Q6H PRN PRN Reason: Nausea And Vomiting Stop: 09/10/19 23:07 Potassium Chloride (K Reese / Wtr) 10 meq in 100 mls @ 100 mls/hr IV Q1H [facility] Stop: 08/13/19 10:55 Oxycodone HCl (Roxicodone Immediate Rel) 5 mg PO Q2H PRN PRN Reason: Pain Stop: 08/25/19 23:07 Last Admin: 08/13/19 07:29 Dose: 5 mg Documented by: Tamsulosin HCl (Flomax) 0.4 mg PO QPM [facility] Stop: 09/11/19 20:59 Last Admin: 08/12/19 22:42 Dose: 0.4 mg Documented by:
[2019-08-13] MEDS: POTASSIUM CHLORIDE / WTR 10 MEQ/100 ML PLCT IV SCH ×3 (10:10→13:59)
[2019-08-13] MEDS ORDERED: ARTIFICIAL TEARS OP OINT 3.5 GM TUBE OP PRN (14:28)
[2019-08-13] MEDS ORDERED: ARTIFICIAL TEARS OP OINT 3.5 GM TUBE OP STA (14:28)
[2019-08-13] MEDS ORDERED: SUCCINYLCHOLINE CHLORIDE 20 MG/ML 10 ML VIAL ONE (14:53)
[2019-08-13] MEDS ORDERED: LIDOCAINE HCL 2% 2 ML VIAL/AMP(20MG/ML) INFIL ONE (14:53)
[2019-08-13] MEDS ORDERED: ONDANSETRON INJ 2 MG/ML 2 ML VIAL ONE (14:53)
[2019-08-13] MEDS ORDERED: PROPOFOL IV EMULSION 10 MG/ML 20 ML VIAL IV ONE (14:53)
[2019-08-13] MEDS ORDERED: fentaNYL citrate 100 MCG/2 ML VIAL ONE (15:05)
--- NOTE | 2019-08-13 15:15 | History & Physical Bridge Note ---
Date of Service August 13, 2019 History & Physical Bridge Note I have examined the patient, reviewed the History & Physical and in the interval since the performance of the History & Physical I have noted the following changes of clinical significance: no changes noted
[2019-08-13] MEDS ORDERED: INDOMETHACIN 50 MG SUPP PR STA (15:16)
--- NOTE | 2019-08-13 15:25 | Anesthesiology Consultation ---
Date of Service August 13, 2019 Assessment & Plan (1) Encounter for pre-operative examination: Chart Review Chart Review: Acceptable Risk for Surgery and Patient NOT seen in Pre Admission Testing Consults Requested none ASA ASA3 Proposed Anesthesia Anesthesia Type: General Risk / Benefits Reviewed With: PT / POA / Parent / Guardian, Accepts Plan and Informed Consent Obtained History Surgery Operation Date: 08/13/19 08:20 Proposed Procedures p Endoscopic Retrograde Cholangiopancreatogram - Ok Carranza MD Height/Weight Height: 5 ft 9 in Weight: 73.981 kg Allergies Allergy/AdvReac Type Severity Reaction Status Date / Time hydrochlorothiazide Allergy Severe PANCREATITI Verified 08/11/19 19:25 S meloxicam Allergy Unknown RASH Verified 08/11/19 19:25 gabapentin AdvReac Severe Fainting Verified 08/11/19 19:25 Medications Home Medications Medication Instructions Recorded Confirmed Last Taken acetaminophen [Acetaminophen Extra 1,000 - 1,500 mg PO Q6H PRN 11/11/18 08/11/19 02/19/19 08:30 Strength] naproxen 250 - 500 mg PO BID PRN 11/11/18 08/11/19 3 Days Ago ~02/16/19 tamsulosin 0.4 mg PO QPM 11/11/18 08/11/19 02/18/19 22:00 dutasteride 0.5 mg PO QPM 08/09/19 08/11/19 Unknown cholecalciferol (vitamin D3) 1,000 unit PO DAILY 08/11/19 08/11/19 Unknown [Vitamin D3] ferrous sulfate [iron] 325 mg PO DAILY 08/11/19 08/11/19 Unknown fluticasone propionate 2 spray INTRANASAL DAILY PRN 08/11/19 08/11/19 Unknown Active Medications Generic Name Dose Route Start Last Admin Trade Name Freq PRN Reason Stop Dose Admin Acetaminophen 325 mg 08/11/19 23:08 08/13/19 06:36 Tylenol PO 09/10/19 23:07 325 mg Q6H PRN Administration pain/fever Ferrous Sulfate 325 mg 08/12/19 09:00 08/13/19 08:53 Feosol PO 09/11/19 08:59 Not Given DAILY [facility] Ceftriaxone Sodium 1,000 mg in 50 mls @ 100 mls/hr 08/11/19 23:00 08/12/19 23:20 Rocephin IV 08/21/19 22:59 Infused Q24H [facility] Infusion Lactated Ringer's 1,000 mls @ 150 mls/hr 08/11/19 23:08 08/13/19 15:07 Lr IV 09/10/19 23:07 0 mls/hr .Q6H40M [facility] Infusion Oxycodone HCl 5 mg 08/12/19 09:25 08/13/19 07:29 Roxicodone Immediate Rel PO 08/25/19 23:07 5 mg Q2H PRN Administration Pain Tamsulosin HCl 0.4 mg 08/12/19 21:00 08/12/19 22:42 Flomax PO 09/11/19 20:59 0.4 mg QPM [facility] Administration Past Medical History Medical History BPH (benign prostatic hyperplasia) DDD (degenerative disc disease) History of hypertension controlled since weight loss Osteoarthritis Spinal stenosis B/L LE radiculopathy Exercise / Class Metabolic Activity II 4-5 Yardwork/Stairs/Walk up hill Past Family History Family History Mother Liver cancer Past Surgical History Surgical History History of appendectomy History of carpal tunnel surgery RIGHT HAND History of colonoscopy History of tonsillectomy and adenoidectomy Hx of hernia repair RIGHT INGUINAL Hx of toe surgery HAD TOENAIL REMOVED IN OFFICE 12/2018 Hx of tonsillectomy Previous back surgery Past Anesthesia History No Hx of Anesthesia Complications and No Family Hx of Anesthesia Complications History of PONV No Hx of PONV and No Hx of Motion Sickness Social History Smoking Status: Former smoker tobacco type: cigarettes Do You Dip or Chew Tobacco: No Hx Alcohol Use: Yes Alcohol type: hard liquor alcohol intake frequency: 0-2 drinks per day Alcohol Intake Frequency Comment: 2-4 oz bourbon/day. Quit 10 days ago. Hx Substance Use: No substance use type: does not use Physical Exam Vital Signs Last Vital Signs Temp 36.6 C 08/13/19 07:27 Pulse 54 L 08/13/19 07:27 Resp 16 08/13/19 07:27 BP 121/68 08/13/19 07:27 Pulse Ox 93 08/13/19 07:27 ENMT Mouth: + dentures Thyromental Distance: > or= 3.5 Finger Breadths Mallampati Class: II Neck normal visual inspection Respiratory normal respiratory effort Auscultation: lungs clear to auscultation bilaterally Cardiovascular Rate/Rhythm: regular rate and regular rhythm Psychiatric Orientation: alert Testing Laboratory Results 08/13/19 04:54 08/13/19 04:54 PT 12.9 Seconds (9.0-12.0) H 08/13/19 09:13 INR 1.3 (0.9-1.1) H 08/13/19 09:13 Urine Color Dark Yellow 08/11/19 19:00 Urine Appearance Turbid (Clear) A 08/11/19 19:00 Urine pH 5.0 (4.5-7.5) 08/11/19 19:00 Ur Specific [place] 1.031 (1.000-1.030) H 08/11/19 19:00 Urine Protein 1+ (Negative) H 08/11/19 19:00 Urine Glucose (UA) Negative (Negative) 08/11/19 19:00 Urine Ketones Negative (Negative) 08/11/19 19:00 Urine Nitrite Positive (Negative) A 08/11/19 19:00 Ur Leukocyte Esterase 1+ (Negative) H 08/11/19 19:00 Urine WBC (Auto) 10-30 /hpf (0-5) H 08/11/19 19:00 Urine RBC (Auto) 0-4 /hpf (0-4) 08/11/19 19:00 U Hyaline Cast (Auto) 1-5 /lpf (0-5) 08/11/19 19:00 U Epithel Cells (Auto) >30 /lpf (0-5) H 08/11/19 19:00 Urine Bacteria (Auto) Negative (Negative) 08/11/19 19:00 08/11/19 19:00 Urine Culture - Final Urine,Clean Catch More than three types of organisms present, all low counts mixed probable skin marya. No further identifications or sensitivities to follow.
[2019-08-13] MEDS ORDERED: LARYING-O-JET KIT (LTA) ONE (15:48)
[2019-08-13] MEDS ORDERED: ePHEDrine sulfate 50 MG/ML SYR ONE (16:36)
[2019-08-13] MEDS ORDERED: PHENYLEPHRINE 100MCG/ML 5ML SYR ONE (16:36)
--- NOTE | 2019-08-13 16:41 | Operative Report ---
Post Operative Report Pre & Post Diagnosis Operation Date: 08/13/19 08:20 Pre-Op Diagnosis: pancreatitis Post-Op Diagnosis: common bile duct stones I identified the patient and participated in the time-out.: Yes Procedure Operation Date: 08/13/19 08:20 Actual Procedures p Endoscopic Retrograde Cholangiopancreatography with common bile duct dilation and biopsies of duodenum and stomach, esophagogastroduodenoscopy with dilation, (Not Applicable) - Ok Carranza MD Surgeon Ok Carranza MD Manager Of Purchasing None Estimated Blood Loss 0 Findings See Below (Duodenal stricture, CBD stones removed) Specimens Duodenum and stomach Bx Description of Procedure EGD and ERCP I attest to the content of the Intraoperative Record and any orders documented therein. Any exceptions are noted below.
--- NOTE | 2019-08-13 16:55 | Fluoroscopy Report ---
[place] ERCP biliary ductal CLINICAL HISTORY: EXPLORE DUCTS COMPARISON STUDY: MRCP 08/12/2019. FLUOROSCOPY TIME: 1 minute and 31 seconds. FINDINGS: 16 fluoroscopic spot images were submitted. There is an endoscope at the second portion of duodenum. The ampulla was cannulated. There is blunting dilatation at the distal common bile duct. Th e majority of the common bile duct is distended. This is followed by a balloon sweep. Final images de monstrate a patent common bile duct. IMPRESSION: Fluoroscopy provided for ERCP. ACT 112: Negative or not required by law. Electronically signed by: Jeff Zhu M.D. 08/13/2019 4:53 PM
--- NOTE | 2019-08-13 16:59 | GI REPORT ---
Addendum Number: 1 Addendum Date: 08/13/2019 5:15:59 PM Addendum to recommendations: Use PO Pantoprazole 40 mg PO BID for 2 months. Ok Carranza MD 08/13/2019 5:16:27 PM This report has been signed electronically. Patient Name: Kole Melo Procedure Date: 08/13/2019 4:42 PM Date of : 1935 Admit Type: Inpatient Age: 84 Gender: Male Attending MD: Ok Carranza MD Procedure: Upper GI endoscopy Providers: Ok Carranza MD Referring MD: Evan Barksdale Md, Iván Sethi Indications: Epigastric abdominal pain Medicines: General Anesthesia Complications: No immediate complications. Estimated Blood Loss: Estimated blood loss: none. Procedure: Pre-Anesthesia Assessment: - Prior to the procedure, a History and Physical was performed, and patient medications, allergies and sensitivities were reviewed. The patient's tolerance of previous anesthesia was reviewed. - The risks and benefits of the procedure and the sedation options and risks were discussed with the patient. All questions were answered and informed consent was obtained. - Patient identification and proposed procedure were verified prior to the procedure by the physician and the nurse. The procedure was verified in the procedure room. - Pre-procedure physical examination revealed no contraindications to sedation. After obtaining informed consent, the endoscope was passed under direct vision. Throughout the procedure, the patient's blood pressure, pulse, and oxygen saturations were monitored continuously. The Scope was introduced through the mouth, and advanced to the second part of duodenum. The upper GI endoscopy was accomplished without difficulty. The patient tolerated the procedure well. Findings: LA Grade A (one or more mucosal breaks less than 5 mm, not extending between tops of 2 mucosal folds) esophagitis with no bleeding was found at the gastroesophageal junction. Mildly erythematous mucosa was found in the gastric body. Biopsies were taken with a cold forceps for Helicobacter pylori testing. Verification of patient identification for the specimen was done by the physician and nurse using the patient's name and date. Benign-appearing, inflammatory/fibrotic looking, intrinsic severe stenosis was found in the second portion of the duodenum. The duodenoscope could not pass hence dilation was performed. The stenosis was traversed only after dilation. A TTS dilator was passed through the scope. Dilation with a 10-11-12 mm and a 12-13.5-15 mm pyloric balloon dilator was performed under fluoroscopic guidance. The dilation site was examined following endoscope reinsertion and showed complete resolution of luminal narrowing. Biopsies were taken with a cold forceps for histology. A large diverticulum was found in the area of the papilla. Impression: - LA Grade A reflux esophagitis. - Erythematous mucosa in the gastric body. Biopsied. 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 Recommendation: - Await pathology results. - Repeat upper endoscopy in 2 months to check healing of the stenosis. - Perform an ERCP today. Ok Carranza MD 08/13/2019 4:58:53 PM This report has been signed electronically. Note Initiated On: 08/13/2019 4:42 PM Number of Addenda: 1 I attest to the content of the Intraoperative Record and orders documented therein, exceptions below {[id number]}
[2019-08-13] MEDS ORDERED: ATROPINE SULFATE 0.1 MG/ML 10ML SYR IV PRN (17:07)
[2019-08-13] MEDS ORDERED: ePHEDrine sulfate 50 MG/ML AMP IV PRN (17:07)
[2019-08-13] MEDS ORDERED: fentaNYL citrate 100 MCG/2 ML VIAL IV PRN (17:07)
[2019-08-13] MEDS ORDERED: ONDANSETRON INJ 2 MG/ML 2 ML VIAL IV PRN (17:07)
--- NOTE | 2019-08-13 17:07 | GI REPORT ---
Patient Name: Kole Melo Procedure Date: 08/13/2019 3:26 PM Date of : 1935 Admit Type: Inpatient Age: 84 Gender: Male Attending MD: Ok Carranza MD Procedure: ERCP Providers: Ok Carranza MD Referring MD: Evan Barksdale Md, Iván Sethi Indications: Abdominal pain of suspected biliary or pancreatic origin, Biliary dilation on magnetic resonance cholangiopancreatography, Evaluation and possible treatment of bile duct stone(s), Elevated liver enzymes Medicines: General Anesthesia Complications: No immediate complications. Estimated Blood Loss: Estimated blood loss: none. Procedure: Pre-Anesthesia Assessment: - Prior to the procedure, a History and Physical was performed, and patient medications, allergies and sensitivities were reviewed. The patient's tolerance of previous anesthesia was reviewed. - The risks and benefits of the procedure and the sedation options and risks were discussed with the patient. All questions were answered and informed consent was obtained. - Patient identification and proposed procedure were verified prior to the procedure by the physician and the nurse. The procedure was verified in the procedure room. - Pre-procedure physical examination revealed no contraindications to sedation. After obtaining informed consent, the scope was passed under direct vision. Throughout the procedure, the patient's blood pressure, pulse, and oxygen saturations were monitored continuously. The Scope was introduced through the mouth, and advanced to the duodenum and used to inject contrast into the bile duct. The ERCP was accomplished without difficulty. The patient tolerated the procedure well. Findings: A financial aid administrator film of the abdomen was obtained. Surgical clips, consistent with a previous cholecystectomy, were seen in the area of the right upper quadrant of the abdomen. The esophagus was successfully intubated under direct vision. The scope was advanced to a normal major papilla in the descending duodenum without detailed examination of the pharynx, larynx and associated structures, and upper GI tract. The upper GI tract was grossly normal except for duodenal stenosis at the sweep which was dilated. See separate EGD report. The major papilla was located entirely within a diverticulum. A 0.035 inch straight standard wire was passed into the biliary tree from the first attempt. The Fusion OMNI sphincterotome was passed over the guidewire and the bile duct was then deeply cannulated. Contrast was injected. I personally interpreted the bile duct images. Ductal flow of contrast was adequate. Image quality was adequate. Contrast extended to the main bile duct. The main bile duct was markedly dilated. The largest diameter was 15 mm. The lower third of the main bile duct contained stone(s). Biliary sphincterotomy was made with a monofilament traction (standard) sphincterotome using ERBE electrocautery. There was no post-sphincterotomy bleeding. Bile duct orifice was successfully dilated with a 10-11-12 mm balloon (to a maximum balloon size of 12 mm) dilator. The biliary tree was swept with an 18 mm balloon starting at the bifurcation. Sludge was swept from the duct. Many small black stones were removed. No stones remained. Occlusion cholangiogram showed no filling defects or contrast extravasation. Indomethacin 100 mg was given via suppository to decrease the risk of post-ERCP pancreatitis (PEP). Impression: - Choledocholithiasis was found. Complete removal was accomplished by biliary sphincterotomy, sphincteroplasty and balloon extraction. - The major papilla was located entirely within a diverticulum. - The entire main bile duct was markedly dilated. Recommendation: - [facility] care. - Avoid aspirin and nonsteroidal anti-inflammatory medicines for 5 days. - Recall GI if needed. Ok Carranza MD 08/13/2019 5:06:41 PM This report has been signed electronically. Note Initiated On: 08/13/2019 3:26 PM Number of Addenda: 0 I attest to the content of the Intraoperative Record and orders documented therein, exceptions below {[id number]}
--- NOTE | 2019-08-13 17:21 | Anesthesiology Progress Note ---
Date of Service August 13, 2019 Anesthesia Post Procedure Vital Signs Vital Signs: Temp Pulse Pulse Resp BP BP Pulse Ox 08/13/19 17:15 36.4 C L 56 L 17 146/66 H 95 08/13/19 17:05 54 L 13 144/80 H 99 08/13/19 16:55 68 21 162/72 H 99 08/13/19 16:47 36.3 C L 70 22 158/85 H 94 08/13/19 15:23 36.4 C L 66 20 149/73 H 92 08/13/19 07:27 36.6 C 54 L 16 121/68 93 08/12/19 23:02 37.4 C 65 16 121/67 92 Pain Intensity Abdomen: Pain Intensity: 0 Transfer of Care Handoff Completed per policy Notes Mental Status: alert / awake / arousable Patient Amnestic to Procedure: Yes Nausea / Vomiting: adequately controlled Pain: adequately controlled Airway Patency, RR, SpO2: stable & adequate BP & HR: stable & adequate Hydration State: stable & adequate Anesthetic Complications: no major complications apparent
[2019-08-13] MEDS: PANTOprazole 40 MG TAB PO SCH (21:29)
[2019-08-13] MEDS: TAMSULOSIN HCL 0.4 MG CAP PO SCH (21:29)
[2019-08-13] MEDS: cefTRIAXone SODIUM 1,000 MG/50 ML BAG IV SCH (22:29)
[2019-08-14] MEDS: LACTATED RINGER'S 1,000 ML IV SCH ×3 (03:30→09:42)
[2019-08-14 05:46] LABS: Hematocrit (blood only) 40.2 % (42-52); Hemoglobin 13.9 g/dL (14.0-18.0); Mean Corpuscular Hemoglobin 32.1 pg (25-34); Mean Corpuscular Hgb Conc 34.6 g/dL (32-36); Mean Corpuscular Volume 92.8 fL (80-100); Mean Platelet Volume 9.9 fL (7.4-10.4); Platelet Count 155 K/uL (130-400); RDW Coefficient of Variation 14.9 % (11.5-14.5); RDW Standard Deviation 50.8 fL (36.4-46.3); Red Blood Count 4.33 M/uL (4.7-6.1); White Blood Count 8.39 K/uL (4.8-10.8)
[2019-08-14 06:23] LABS: Albumin Level 2.3 gm/dl (3.4-5.0); Bilirubin Direct 0.3 mg/dl (0-0.2); Bilirubin,Total 0.7 mg/dl (0.2-1); Calcium 8.5 mg/dl (8.5-10.1); Creatinine Clr Calc Pharmacy 111.9 ml/min; Est GFR (African American) 116.2; Est GFR (Non-African American) 100.2; Magnesium 1.9 mg/dl (1.8-2.4); Potassium 3.5 mmol/L (3.5-5.1); Total Protein 5.5 gm/dl (6.4-8.2)
--- NOTE | 2019-08-14 08:25 | Anesthesiology Progress Note ---
Date of Service August 14, 2019 Anesthesia Post Procedure Vital Signs Vital Signs: Temp Pulse Pulse Resp BP BP Pulse Ox 08/14/19 07:46 36.5 C 52 L 18 138/70 93 08/14/19 04:05 36.6 C 52 L 16 127/65 93 08/13/19 23:00 36.4 C L 57 L 16 114/57 L 93 08/13/19 19:30 61 16 162/72 H 92 08/13/19 18:50 36.6 C 92 H 18 152/55 H 92 08/13/19 18:03 36.6 C 54 L 16 145/64 H 94 08/13/19 17:45 36.9 C 55 L 16 140/69 93 08/13/19 17:25 55 L 13 139/71 94 08/13/19 17:15 36.4 C L 56 L 17 146/66 H 95 08/13/19 17:05 54 L 13 144/80 H 99 08/13/19 16:55 68 21 162/72 H 99 08/13/19 16:47 36.3 C L 70 22 158/85 H 94 08/13/19 15:23 36.4 C L 66 20 149/73 H 92 Pain Intensity Abdomen: Pain Intensity: 0 Notes Mental Status: alert / awake / arousable and participated in evaluation Patient Amnestic to Procedure: Yes Nausea / Vomiting: see Notes below Pain: adequately controlled Airway Patency, RR, SpO2: stable & adequate BP & HR: stable & adequate Hydration State: stable & adequate Anesthetic Complications: no major complications apparent and Pt Satisfied with anesthetic care
[2019-08-14] MEDS: FERROUS SULFATE 325 MG TAB PO SCH (08:38)
[2019-08-14] MEDS: PANTOprazole 40 MG TAB PO SCH (08:38)
[2019-08-14] MEDS ORDERED: POTASSIUM CHLORIDE 20 MEQ TABCR PO STA (10:31)
--- NOTE | 2019-08-14 12:56 | Gastroenterology Progress Note ---
Date of Service August 14, 2019 Assessment & Plan (1) Dilated bile duct: Mr. Melo is postprocedure day #1 from ERCP with sphincterotomy and balloon extraction of a common bile duct stone. LFTs are improving. He does not have any current abdominal pain, or any evidence of GI bleeding and is tolerating regular consistency low-fat diet. (2) Duodenal stricture: 1. Recommend Pantoprazole or equivalent PPI, BID. 20mg BID would be fine (ordered). 2. EGD in 2 months, to verify healing of the esophagitis. May need to repeat dilation of duodenal stricture. Present on Admission?: Yes (3) Esophagitis: As able (see duodenal stricture) Present on Admission?: Yes Supervising Physician Co-Signing Physician Notes I have personally seen and examined the patient with ISMAEL Urias. Her note reflects my exam and findings. I agree with her impression and plan. Doing great s/p ERCP. Tolerating diet. Kali Armenta M.D. Subjective Mr. Kole Melo is an 84 yr old male pt who is postprocedure day #1 after ERCP for gallstone pancreatitis. He is doing well. LFTs are much improved. Patient was able to tolerate a regular breakfast. Review of Systems Review of Systems: ROS: Gen: Denies weakness, fevers, weight loss Eyes: No eye redness, or pain, no recent vision changes Resp: No SOB, no cough Cardio: No palpitations/irregular beats, no chest pain GI: today - no pain, nausea, vomiting or diarrhea : Denies pain on urination Skin: No jaundice, itching or new rashes Physical Exam Constitutional: WD/WN, vitals as above Eyes: PERRL, conjunctivae normal, anicteric sclerae ENMT: external ear and nose normal, oropharynx normal Neck: trachea midline, no thyromegaly Respiratory: normal respiratory effort, lungs clear to auscultation (except few fine crackle left base) Cardiovascular: RRR, no murmur, no edema Gastrointestinal (Abdomen): normal bowel sounds, soft, nontender, no hepatosplenomegaly Skin: no rashes, warm and dry Neurologic: PERRL, EOMI, accommodation nl, no face palsy, no dysarthria Psychiatric: A+Ox3, euthymic affect Lymphatic: no cervical or axillary lymphadenopathy Results & Data Vital Signs (Past 12 Hours) Vital Signs Temp Pulse Resp BP Pulse Ox 08/14/19 07:46 36.5 C 52 L 18 138/70 93 08/14/19 04:05 36.6 C 52 L 16 127/65 93
--- NOTE | 2019-08-14 14:50 | Discharge Summary ---
Date of Service August 14, 2019 Admission HPI Per Admitting Provider History obtained from patient and records. Medical history significant for hypertension, BPH, past tobacco/alcohol abuse as per records, history of bladder stones, history of pancreatitis attributed to HCTZ. Recent confinement February 2019 under orthopedic service for laminectomy for lumbar spinel stenosis. Patient noted achy epigastric discomfort this afternoon going to his chest, worse with deep breathing. No fever, no chills. Some right groin discomfort. Last alcohol intake was a few days ago. Patient brought to the ER for evaluation by EMS. 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 Admission Exam Per Admitting Provider GENERAL: Comfortable, no respiratory distress SKIN: Normal color, warm HEENT: [place] palpebral conjunctivae, no ptosis, dry buccal mucosa NECK : Supple, no tenderness CHEST : Decreased breath sounds, no tenderness HEART : RRR, no obvious murmurs ABDOMEN: Some distention, epigastric tenderness EXTREMITIES : No LE swelling/tenderness, no other conspicuous deformities noted NEUROLOGIC : Coherent, no facial asymmetry, no other gross focality Principal Diagnosis Gallstone pancreatitis, choledocholithiasis, esophagitis, duodenal stricture s/p ERCP with sphincterotomy and balloon extraction of a common bile duct stone Discharge Exam GENERAL: Elderly male, lying in bed, in no acute distress HEENT: Normocephalic, atraumatic, EOMI, PERRL NECK : Supple, no tenderness CHEST : Normal to inspection, clear to auscultation b/l, no wheezing rhonchi or crackles noted HEART : RRR, no obvious murmurs ABDOMEN: Positive bowel sounds, soft, epigastric tenderness to palpation (improved), nondistended EXTREMITIES : No LE swelling/tenderness, moves all 4 extremities spontaneously SKIN: warm, dry, well-perfused, no rashes or lesions NEUROLOGIC : Alert and oriented x3, no facial asymmetry, speech fluent, moves all extremities spontaneously Discharge Data Allergies Allergy/AdvReac Type Severity Reaction Status Date / Time hydrochlorothiazide Allergy Severe PANCREATITI Verified 08/11/19 19:25 S meloxicam Allergy Unknown RASH Verified 08/11/19 19:25 gabapentin AdvReac Severe Fainting Verified 08/11/19 19:25 Consultations 08/11/19 20:52 ED Decision to Admit Stat 08/11/19 23:08 Consult Gastroenterology Routine Procedures Performed Operation Date: 08/13/19 08:20 Actual Procedures p Endoscopic Retrograde Cholangiopancreatography with common bile duct dilation and biopsies of duodenum and stomach, esophagogastroduodenoscopy with dilation, (Not Applicable) - Ok Carranza MD Ordered Studies 08/11/19 18:42 CT abd pelvis IV con only Stat 08/12/19 09:17 MR MRCP Routine 08/13/19 14:30 FL ERCP biliary ductal Routine Hospital Course (1) Recurrent pancreatitis: Gallstone pancreatitis, choledocholithiasis, esophagitis, duodenal stricture s/p ERCP with sphincterotomy and balloon extraction of a common bile duct stone History HCTZ induced pancreatitis per records Rule out CBD obstruction given abnormal LFTs Bowel rest, analgesia IVF LR GI consult RE pancreatitis, obtained MRCP CBD dilated - elevated lipase, LFTs and dilated CBD on MRCP, suggestive of acute p ancreatitis from gallstone pancreatitis likely with choledocholithiasis - WBC trending down, lipase down from 28k to 1k - s/p ERCP yesterday (08/13/2019) w/ GI - common bile duct dilation and biopsies of duodenum and stomach, esophagogastroduodenoscopy duodenal stricture s/p dilation,sphincterotomy and balloon extraction of a common bile duct stone - pt feels well today (08/14/2019), he is tolerating diet, pain much improved, examined by GI, plan to d/c home today - pt will need to start taking PPI BID (d/t esophagitis) and plan to follow up w/ GI, pt will need follow up EGD in 2 months to confirm esophagitis healing - biopsy of gastric mucosa and duodenal mucosa- pending, H. pylori test - pending Poss. complicated UTI History BPH, bladder stones No sepsis - follows w/ / Kay (urology) Follow urine cltx - on IV Ceftriaxone while inpt Hypoxia - pt required suppl. O2 1-2 L/min while inpt - recommend pulse ox check during next outpt visit/ poss. sleep study as outpt Hypokalemia - d/t IVF - will replete and monitor Hypertension - stable, BP at goal Total Time Total Time Spent Total Time Spent (In Minutes): 40 Total Time Includes: Examination of the Patient, Discharge Planning, Medication Reconciliation and Communication With Other Providers Discharge Plan Discharge Items Patient Disposition: Home - Self-Care Reason For Visit: PANCREATITIS Discharge Diagnosis: Gallstone pancreatitis, choledocholithiasis, esophagitis, duodenal stricture s/p ERCP with sphincterotomy and balloon extraction of a common bile duct stone Activity: Resume your previous activity Activity Comment: as tolerated Non-emergency contact: Primary Care Provider and Senior Bioinformatics Scientist Call non-emergency contact if: you have any medication questions Follow-up/Referrals: Iván Sethi DO [Primary Care Provider] - 08/22/19 11:05 am Diet: Low Fat Addtl Attending Provider Instructions: Follow-up with your primary care provider on August 22, at 11:05 AM. Besides following up on your hospitalization, we recommend that you have a pulse ox/oxygen saturation checked during your office visit. You may also need a sleep study. You were evaluated by lithographic stripper during this hospitalization, and it was found that you have esophagitis, therefore new medication -pantoprazole, was started. Make sure to take it twice a day. You will need to follow-up with gastroenterology, you will be contacted about the appointment. Plan for EGD in 2 months, to verify healing of the esophagitis. May need to repeat dilation of duodenal stricture. Pending Studies at Discharge: Yes Studies:: Biopsy of gastric mucosa, and duodenum, H. pylori testing Stand-Alone Forms: [facility], Smoking Cessation Medications and DC Order Prescriptions: New pantoprazole 40 mg Tablet,Delayed Release (Dr/Ec) 40 mg PO BID 30 Days Qty: 60 RF: 0 Continued acetaminophen [Acetaminophen Extra Strength] 500 mg Tablet 1,000 - 1,500 mg PO Q6H PRN (Reason: Pain) RF: 0 tamsulosin 0.4 mg Capsule 0.4 mg PO QPM RF: 0 dutasteride 0.5 mg Capsule 0.5 mg PO QPM RF: 0 ferrous sulfate [iron] 325 mg (65 mg iron) Tablet 325 mg PO DAILY RF: 0 cholecalciferol (vitamin D3) [Vitamin D3] 25 mcg (1,000 unit) Tablet,Chewable 1,000 unit PO DAILY RF: 0 fluticasone propionate 50 mcg/actuation spray,suspension 2 spray INTRANASAL DAILY PRN (Reason: Nasal Congestion) RF: 0 Discontinued naproxen 250 mg Tablet 250 - 500 mg PO BID PRN (Reason: Pain) RF: 0 Discharge Orders: Discharge Order (Routine); Ordered 08/14/19 Ordered By: Evan Barksdale Admission Data Admit Date/Time: 08/11/19 22:19 Attending Provider: Evan Barksdale Admit Provider: Jimmy Duval Primary Care Provider: Iván Sethi Other Providers: Jimmy Duval ; Cata Bender ; Ok Carranza ; Judd Serrano ; Kali Armenta Other Interventions: Discharge Summary Assessment (RN) Last Done: 08/14/19 14:46 DC Date/Time DO NOT enter until pt leaves facility: 08/14/19 15:25
[2019-08-14] MEDS ORDERED: PANTOprazole 40 MG TAB PO SCH (21:00)
== END 2019-08-14 15:25 | disposition home or self-care (01) | DRG 439 ==
LOC: ED 18:24 → 3W 22:19
DX: N39.0 Urinary tract infection, site not specified; K57.10 Diverticulosis of small intestine without perforation or abscess without bleeding; K20.9 Esophagitis, unspecified; Z72.89 Other problems related to lifestyle; Z79.899 Other long term (current) drug therapy; K83.8 Other specified diseases of biliary tract; N21.0 Calculus in bladder; Z88.6 Allergy status to analgesic agent; K31.5 Obstruction of duodenum; I10 Essential (primary) hypertension; K80.50 Calculus of bile duct without cholangitis or cholecystitis without obstruction; Z80.0 Family history of malignant neoplasm of digestive organs; K85.10 Biliary acute pancreatitis without necrosis or infection; Z87.891 Personal history of nicotine dependence; N40.0 Benign prostatic hyperplasia without lower urinary tract symptoms; Z88.8 Allergy status to other drugs, medicaments and biological substances

== ENCOUNTER 2020-11-28 21:42 | Inpatient (IN) ==
[2020-11-28 22:23] LABS: Basophils # (auto) 0.02 K/uL (0-0.2); Basophils % (auto) 0.3 %; Eosinophils # (auto) 0.11 K/uL (0-0.5); Eosinophils % (auto) 1.5 %; Hematocrit (blood only) 43.6 % (42-52); Hemoglobin 15.3 g/dL (14.0-18.0); Immature Granulocytes # (auto) 0.01 K/uL (0.00-0.02); Immature Granulocytes % (auto) 0.1 %; Lymphocytes # (auto) 0.48 K/uL (1.2-3.4); Lymphocytes % (auto) 6.5 %; Mean Corpuscular Hemoglobin 32.7 pg (25-34); Mean Corpuscular Hgb Conc 35.1 g/dL (32-36); Mean Corpuscular Volume 93.2 fL (80-100); Mean Platelet Volume 9.5 fL (7.4-10.4); Monocytes # (auto) 0.45 K/uL (0.11-0.59); Monocytes % (auto) 6.1 %; Neutrophils # (auto) 6.33 K/uL (1.4-6.5); Neutrophils % (auto) 85.5 %; Platelet Count 181 K/uL (130-400); RDW Coefficient of Variation 13.1 % (11.5-14.5); RDW Standard Deviation 44.4 fL (36.4-46.3); Red Blood Count 4.68 M/uL (4.7-6.1)
[2020-11-28 22:44] LABS: Alanine Aminotransferase 91 U/L (12-78); Albumin Level 3.6 gm/dl (3.4-5.0); Aspartate Aminotransferase 165 U/L (15-37); Blood Urea Nitrogen 17 mg/dl (7-18); Calcium 9.5 mg/dl (8.5-10.1); Carbon Dioxide 29 mmol/L (21-32); Chloride 107 mmol/L (98-107); Creatinine Clr Calc Pharmacy 60.4 ml/min; Est GFR (African American) 85.9 ml/min; Est GFR (Non-African American) 74.2 ml/min; Glucose 126 mg/dl (70-99); Lipase 150 U/L (73-393); Potassium 3.9 mmol/L (3.5-5.1); Sodium 141 mmol/L (136-145)
[2020-11-28 22:49] LABS: Alkaline Phosphatase 121 U/L (45-117); Bilirubin,Total 1.3 mg/dl (0.2-1); Globulin 3.5 gm/dl (2.5-4.0); Total Protein 7.1 gm/dl (6.4-8.2); Troponin I < 0.015 ng/ml (0-0.045)
--- NOTE | 2020-11-28 22:50 | Emergency Department Note ---
Impression & Plan Acute upper abdominal pain, Choledocholithiasis, Elevated LFTs, Lung nodule ED Provider Note INFORMANT: Patient ED PROVIDER(S): Davion Quiñonez MD CHIEF COMPLAINT: Abdominal pain PLAN: Disposition: Admitted Condition: Good Outpatient prescription management: none Referral: None MEDICAL DECISION MAKING: Patient presented with acute abdominal pain. He is concerned about recurrent pancreatitis. Record review indicated the patient did have gallstone pancreatitis as well as a biliary ductal stone. He underwent CT imaging. Blood work revealed elevated LFTs but no evidence of pancreatitis. His CT scan was concerning for choledocholithiasis. The patient had some shaking here. I do not see any evidence of allergic reaction. Could be an adverse reaction to the morphine however there is concern with the choledocholithiasis that he may dealing with infection. He was given IV Mefoxin. Consultation was made with Dr. Jimmy Duval, [facility] for further management. Triage Nursing notes reviewed and agree them. Vital Signs: reviewed and remarkable for no significant abnormalities Differential diagnosis: pancreatitis, biliary pathology,appendicitis, testicular torsion, infections, diverticulitis, UTI, obstruction, mesenteric ischemia, aortic pathology, inflammatory bowel disease, renal colic, PUD, hernia, volvulus, constipation, as well as other pathologies. Diagnostics interpreted by me: ECG: Twelve-lead ECG reveals normal sinus rhythm with sinus arrhythmia at 70 bpm. Low voltage QRS. No ST elevation or depression. No PACs or PVCs. Normal axis and intervals. Cardiac Monitoring: Cardiac monitoring ordered by me: The patient was placed on continuous cardiac monitoring and observed. It revealed a normal sinus rhythm at 92 beats per minute without ectopy or evidence of dysrhythmia. Imaging studies: CT: 1. Small hyperdense foci within the mildly distended common bile duct measuring up to 7 mm. This is consistent with choledocholithiasis. 2. Prior cholecystectomy. 3. Increase in size in the 11 mm spiculated nodule within the right lower lobe. This is consistent with a primary bronchogenic malignancy. 4. Decrease in size and number of the small bladder calculi. 5. Extensive colonic diverticulosis. No evidence for acute diverticulitis. 6. Left-sided nephrolithiasis. No hydronephrosis. HPI: The patient is a 85 year old male who presents to the Emergency Room with complaints of upper abdominal pain. This started about 2 hours ago improving and is . The patient also notes the following associated symptoms, pain radiating to his chest. Patient has a history of pancreatitis and was concerned for the same. This episode started suddenly after eating ice cream. He rated the pain a 10 out of 10. The patient has been given 2 mg of morphine and 4 mg of Zofran via EMS relieving factors. Current pain is rated as 2/10 but nearly resolving. Patient now feels very shaky. He is concerned he may be allergic to morphine. He has never had this type of reaction ever before. No hives or itching. No airway issues. Pt denies LOC, headache, fevers, chills, diaphoresis, visual changes, neck pain, chest pain, breathing difficulties, nausea, vomiting, back pain, melena, hematochezia, urinary symptoms, numbness, weakness, lymphadenopathy, rash, or other complaints. ROS: See above HPI for pertinent positives & negatives. A total of 10 systems reviewed and were otherwise negative. PAST MEDICAL HISTORY:See Below , pancreatitis, hypertension PAST SURGICAL HISTORY:See Below, FAMILY HISTORY:See Below SOCIAL HISTORY:See Below, retired HOME MEDICATIONS:See Below ALLERGIES:See Below VITALS:See Below PHYSICAL EXAMINATION: GENERAL: Awake, alert, uncomfortable-appearing, in no distress HENT: Normocephalic, atraumatic. Oropharynx unremarkable. EYES: Normal conjunctiva. Sclera non-icteric. NECK: Inspection normal. Non-tender. Supple. No nuchal rigidity. FROM. No masses. RESPIRATORY: Clear to auscultation. No wheezes. No rales. Normal respiratory effort. CARDIAC: Normal rate. Normal rhythm. No murmurs. No rubs. Extremities warm and well perfused. Pulses equal. No JVD. GI: Soft, non-distended. Epigastric tenderness to palpation. No rebound or guarding. No masses. RECTAL: Deferred. MUSCULOSKELETAL: Atraumatic. Chest examination reveals no tenderness. The back is symmetrical on inspection without obvious abnormality. There is no CVA tenderness to palpation. No joint edema. LOWER EXTREMITIES: Calves are equal size bilaterally and non-tender. No edema. No discoloration. NEURO: Normal sensorium. No sensory or motor deficits noted. SKIN: No rash or jaundice noted. Davion Quiñonez MD Past Med/Surg History Medical History (Updated 11/29/20 @ 00:07 by Davion Quiñonez MD) BPH (benign prostatic hyperplasia) DDD (degenerative disc disease) History of hypertension controlled since weight loss Osteoarthritis Spinal stenosis B/L LE radiculopathy Surgical History History of appendectomy History of carpal tunnel surgery RIGHT HAND History of colonoscopy History of tonsillectomy and adenoidectomy Hx of hernia repair RIGHT INGUINAL Hx of toe surgery HAD TOENAIL REMOVED IN OFFICE 12/2018 Hx of tonsillectomy Previous back surgery Family History Mother Liver cancer Social History Smoking Status: Former smoker Tobacco Type: Cigarettes Second Hand Exposure: No; Hx Alcohol Use: Yes Alcohol type: hard liquor Hx Substance Use: No Preferred Language: Pakistani Communication Ability: Effective Visual Impairment: No Limitations 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 HE IS TRYING TO FIND SOMEONE Feels Safe at Home: Yes Assistive Devices: Walker Allergies Allergies Allergy/AdvReac Type Severity Reaction Status Date / Time hydrochlorothiazide Allergy Severe PANCREATITI Verified 11/28/20 23:08 S meloxicam Allergy Mild RASH Verified 11/28/20 23:08 gabapentin AdvReac Severe Fainting Verified 11/28/20 23:08 Home Meds Home Medications Medication Instructions Recorded Confirmed tamsulosin 0.4 mg PO QPM 11/11/18 11/28/20 dutasteride 0.5 mg PO QPM 08/09/19 11/28/20 Results & Data (ED) Vital Signs Vital Signs - 24 hr 11/28/20 22:00 11/28/20 22:02 11/28/20 22:32 Temperature 37.0 C Temperature Source Oral Pulse Rate 96 H 72 92 H Pulse Rate from SpO2 Sensor 96 H 91 H Pulse Rhythm Regular Pulse Strength Normal Respiratory Rate 20 18 19 Respiratory Effort / Characteristics Non-Labored Spontaneous Respiratory Depth Normal Respiratory Pattern Regular Blood Pressure 129/66 126/74 132/81 Blood Pressure Mean 87 91 98 Pulse Oximetry 94 92 96 Oxygen Delivery Method Room Air Room Air Room Air Oxygen Flow Rate Sepsis Recent Fever Within 48 Hours No Sepsis New/Unexplained Change in Mental Status N/A Sepsis Action Taken by Nursing No Action Required 11/28/20 23:02 11/28/20 23:12 Temperature Temperature Source Pulse Rate 83 Pulse Rate from SpO2 Sensor 81 Pulse Rhythm Pulse Strength Respiratory Rate 20 18 Respiratory Effort / Characteristics Non-Labored Spontaneous Respiratory Depth Normal Respiratory Pattern Regular Blood Pressure 135/72 Blood Pressure Mean 93 Pulse Oximetry 95 94 Oxygen Delivery Method Room Air Nasal Cannula Oxygen Flow Rate 2 Sepsis Recent Fever Within 48 Hours Sepsis New/Unexplained Change in Mental Status Sepsis Action Taken by Nursing Laboratory Data Result diagrams: 11/28/20 21:55 11/28/20 21:55 Lab Results 11/28/20 11/28/20 11/28/20 Range/Units 21:55 21:55 22:16 WBC 7.40 (4.8-10.8) K/uL RBC 4.68 L (4.7-6.1) M/uL Hgb 15.3 (14.0-18.0) g/dL Hct 43.6 (42-52) % MCV 93.2 (80-100) fL MCH 32.7 (25-34) pg MCHC 35.1 (32-36) g/dL RDW Std Deviation 44.4 (36.4-46.3) fL RDW Coeff of Jocelyn 13.1 (11.5-14.5) % Plt Count 181 (130-400) K/uL MPV 9.5 (7.4-10.4) fL Immature Gran % (Auto) 0.1 % Neut % (Auto) 85.5 % Lymph % (Auto) 6.5 % [place] % (Auto) 6.1 % Eos % (Auto) 1.5 % Baso % (Auto) 0.3 % Neut # (Auto) 6.33 (1.4-6.5) K/uL Lymph # (Auto) 0.48 L (1.2-3.4) K/uL [place] # (Auto) 0.45 (0.11-0.59) K/uL Eos # (Auto) 0.11 (0-0.5) K/uL Baso # (Auto) 0.02 (0-0.2) K/uL Immature Gran # (Auto) 0.01 (0.00-0.02) K/uL Sodium 141 (136-145) mmol/L Potassium 3.9 (3.5-5.1) mmol/L Chloride 107 (98-107) mmol/L Carbon Dioxide 29 (21-32) mmol/L Anion Gap 5.0 (3-11) BUN 17 (7-18) mg/dl Creatinine 0.94 (0.6-1.4) mg/dl Est Cr Clr Drug Dosing 60.4 ml/min Est GFR ( Amer) 85.9 ml/min Est GFR (Non-Af Amer) 74.2 ml/min BUN/Creatinine Ratio 18.0 (10-20) Glucose 126 H (70-99) mg/dl Calcium 9.5 (8.5-10.1) mg/dl Magnesium 2.3 (1.8-2.4) mg/dl Total Bilirubin 1.3 H (0.2-1) mg/dl AST 165 H (15-37) U/L ALT 91 H (12-78) U/L Alkaline Phosphatase 121 H (45-117) U/L Troponin I < 0.015 (0-0.045) ng/ml Total Protein 7.1 (6.4-8.2) gm/dl Albumin 3.6 (3.4-5.0) gm/dl Globulin 3.5 (2.5-4.0) gm/dl Albumin/Globulin Ratio 1.0 (0.9-2) Lipase 150 (73-393) U/L Specimen Hemolysis Urine Color Dark Yellow Urine Appearance Clear (Clear) Urine pH 5.5 (4.5-7.5) Ur Specific [place] 1.022 (1.000-1.030) Urine Protein Negative (Negative) Urine Glucose (UA) Negative (Negative) Urine Ketones Negative (Negative) Urine Blood Negative (Negative) Urine Nitrite Negative (Negative) Urine Bilirubin Negative (Negative) Urine Urobilinogen Negative (Negative) Ur Leukocyte Esterase Trace H (Negative) Urine WBC (Auto) 1-5 (0-5) /hpf Urine RBC (Auto) 0-4 (0-4) /hpf U Hyaline Cast (Auto) 1-5 (0-5) /lpf U Epithel Cells (Auto) 5-10 H (0-5) /lpf Urine Bacteria (Auto) Negative (Negative) Urine Crystals Not Reportable Calcium Oxalate Crystal Present A (None Prsent) Urine Mucus Present A (None Prsent) COVID-19 Eval Order 11/28/20 Range/Units 23:22 WBC (4.8-10.8) K/uL RBC (4.7-6.1) M/uL Hgb (14.0-18.0) g/dL Hct (42-52) % MCV (80-100) fL MCH (25-34) pg MCHC (32-36) g/dL RDW Std Deviation (36.4-46.3) fL RDW Coeff of Jocelyn (11.5-14.5) % Plt Count (130-400) K/uL MPV (7.4-10.4) fL Immature Gran % (Auto) % Neut % (Auto) % Lymph % (Auto) % [place] % (Auto) % Eos % (Auto) % Baso % (Auto) % Neut # (Auto) (1.4-6.5) K/uL Lymph # (Auto) (1.2-3.4) K/uL [place] # (Auto) (0.11-0.59) K/uL Eos # (Auto) (0-0.5) K/uL Baso # (Auto) (0-0.2) K/uL Immature Gran # (Auto) (0.00-0.02) K/uL Sodium (136-145) mmol/L Potassium (3.5-5.1) mmol/L Chloride (98-107) mmol/L Carbon Dioxide (21-32) mmol/L Anion Gap (3-11) BUN (7-18) mg/dl Creatinine (0.6-1.4) mg/dl Est Cr Clr Drug Dosing ml/min Est GFR ( Amer) ml/min Est GFR (Non-Af Amer) ml/min BUN/Creatinine Ratio (10-20) Glucose (70-99) mg/dl Calcium (8.5-10.1) mg/dl Magnesium (1.8-2.4) mg/dl Total Bilirubin (0.2-1) mg/dl AST (15-37) U/L ALT (12-78) U/L Alkaline Phosphatase (45-117) U/L Troponin I (0-0.045) ng/ml Total Protein (6.4-8.2) gm/dl Albumin (3.4-5.0) gm/dl Globulin (2.5-4.0) gm/dl Albumin/Globulin Ratio (0.9-2) Lipase (73-393) U/L Specimen Hemolysis Urine Color Urine Appearance (Clear) Urine pH (4.5-7.5) Ur Specific [place] (1.000-1.030) Urine Protein (Negative) Urine Glucose (UA) (Negative) Urine Ketones (Negative) Urine Blood (Negative) Urine Nitrite (Negative) Urine Bilirubin (Negative) Urine Urobilinogen (Negative) Ur Leukocyte Esterase (Negative) Urine WBC (Auto) (0-5) /hpf Urine RBC (Auto) (0-4) /hpf U Hyaline Cast (Auto) (0-5) /lpf U Epithel Cells (Auto) (0-5) /lpf Urine Bacteria (Auto) (Negative) Urine Crystals Calcium Oxalate Crystal (None Prsent) Urine Mucus (None Prsent) COVID-19 Eval Order Covid19 at [facility] Imaging Data Radiologist's Impression: Abdomen/Pelvis CT 11/28/20 22:[address] WITHOUT CONTRAST CT DOSE: 479.70 mGy.cm HISTORY: upper abd pain TECHNIQUE: Multiaxial CT images of the abdomen and pelvis were performed without contrast. A dose lowering technique was utilized adhering to the principles of ALARA. COMPARISON STUDY: Abdomen and pelvis CT 08/11/2019. FINDINGS: An 11 mm slightly spiculated nodule within the right lower lobe on image 39. This is increased in size in the prior study when it measured 9 mm. Therefore, this is consistent with a primary bronchogenic malignancy. The left lung base is essentially clear. Mild elevation of the left hemidiaphragm, unchanged. No pneumoperitoneum. No pneumatosis. Posterior decompression within the lumbar spine is again noted. There are old, healed right-sided rib fractures. Small hiatus hernia, unchanged. There are 2 diverticula of the duodenum with the largest measuring 2.8 cm. Mild intrahepatic bile duct dilatation remains unchanged. Prior cholecystectomy. No definite hepatic or splenic masses. Normal adrenal glands. The unenhanced pancreas is unremarkable. No hydronephrosis. There is a punctate stone within the upper pole of the left kidney. No definite right renal calculi. No ureteral calculi. A few small bladder stones are noted. The prostate gland is mildly enlarged. No pelvic free fluid. Small hyperdense foci layering within the common bile duct measuring up to 7 mm. This is best seen image 139. These likely represent small stones. The common bile duct re kamla mildly distended up to 1.3 cm. No retroperitoneal lymphadenopathy. Calcified plaque within the normal caliber abdominal aorta. Suboptimal evaluation for bowel pathology due to the lack of intravenous and oral contrast. However, there is no definite bowel wall thickening or obstruction. Colonic diverticulosis. No evidence for acute diverticulitis. IMPRESSION: 1. Small hyperdense foci within the mildly distended common bile duct measuring up to 7 mm. This is consistent with choledocholithiasis. 2. Prior cholecystectomy. 3. Increase in size in the 11 mm spiculated nodule within the right lower lobe. This is consistent with a primary bronchogenic malignancy. 4. Decrease in size and number of the small bladder calculi. 5. Extensive colonic diverticulosis. No evidence for acute diverticulitis. 6. Left-sided nephrolithiasis. No hydronephrosis. ACT 112: Negative or not required by law. Electronically signed by: Jeff Zhu M.D. 11/28/2020 11:12 PM Discharge Plan Visit Data Chief Complaint: Chest Pain Stated Complaint: AB PAIN ED Provider: Davion Quiñonez Discharge Problem: Acute upper abdominal pain, Choledocholithiasis, Elevated LFTs, Lung nodule Forms Stand Alone Forms: [employer] Prescriptions Prescriptions: No Action tamsulosin 0.4 mg Capsule 0.4 mg PO QPM RF: 0 dutasteride 0.5 mg Capsule 0.5 mg PO QPM RF: 0
[2020-11-28 23:01] LABS: Appearance Urine Clear (Clear); Bacteria Urine Automated Negative (Negative); Bilirubin Urine Negative (Negative); Blood Urine Negative (Negative); Color Urine Dark Yellow; Glucose Urine UA Negative (Negative); Ketones Urine Negative (Negative); Leukocyte Esterase Urine Trace (Negative); Nitrite Urine Negative (Negative); Protein Urine Negative (Negative); RBC Urine Automated 0-4 /hpf (0-4); Specific Gravity Urine 1.022 (1.000-1.030); Urobilinogen Urine Negative (Negative); pH Urine 5.5 (4.5-7.5)
--- NOTE | 2020-11-28 23:14 | CT Scan Report ---
ABDOMEN AND PELVIS CT WITHOUT CONTRAST CT DOSE: 479.70 mGy.cm HISTORY: upper abd pain TECHNIQUE: Multiaxial CT images of the abdomen and pelvis were performed without contrast. A dose lo wering technique was utilized adhering to the principles of ALARA. COMPARISON STUDY: Abdomen and pelvis CT 08/11/2019. FINDINGS: An 11 mm slightly spiculated nodule within the right lower lobe on image 39. This is increased in siz e in the prior study when it measured 9 mm. Therefore, this is consistent with a primary bronchogenic malignancy. The left lung base is essentially clear. Mild elevation of the left hemidiaphragm, uncha nged. No pneumoperitoneum. No pneumatosis. Posterior decompression within the lumbar spine is again n oted. There are old, healed right-sided rib fractures. Small hiatus hernia, unchanged. There are 2 di verticula of the duodenum with the largest measuring 2.8 cm. Mild intrahepatic bile duct dilatation r emains unchanged. Prior cholecystectomy. No definite hepatic or splenic masses. Normal adrenal glands . The unenhanced pancreas is unremarkable. No hydronephrosis. There is a punctate stone within the up per pole of the left kidney. No definite right renal calculi. No ureteral calculi. A few small bladde r stones are noted. The prostate gland is mildly enlarged. No pelvic free fluid. Small hyperdense foc i layering within the common bile duct measuring up to 7 mm. This is best seen image 139. These likel y represent small stones. The common bile duct remains mildly distended up to 1.3 cm. No retroperiton eal lymphadenopathy. Calcified plaque within the normal caliber abdominal aorta. Suboptimal evaluatio n for bowel pathology due to the lack of intravenous and oral contrast. However, there is no definite bowel wall thickening or obstruction. Colonic diverticulosis. No evidence for acute diverticulitis. IMPRESSION: 1. Small hyperdense foci within the mildly distended common bile duct measuring up to 7 mm. This is c onsistent with choledocholithiasis. 2. Prior cholecystectomy. 3. Increase in size in the 11 mm spiculated nodule within the right lower lobe. This is consistent wi th a primary bronchogenic malignancy. 4. Decrease in size and number of the small bladder calculi. 5. Extensive colonic diverticulosis. No evidence for acute diverticulitis. 6. Left-sided nephrolithiasis. No hydronephrosis. ACT 112: Negative or not required by law. Electronically signed by: Jeff Zhu M.D. 11/28/2020 11:12 PM
[2020-11-28 23:24] LABS: Calcium Oxalate Crystals Urine Present (None Prsent); Mucus Urine Present (None Prsent)
[2020-11-28] MEDS ORDERED: cefOXitin 2,000 MG/60 ML BAG IV STA (23:50)
[2020-11-28 23:58] LABS: Magnesium 2.3 mg/dl (1.8-2.4)
--- NOTE | 2020-11-29 00:06 | History & Physical Report ---
Date of Service November 29, 2020 Assessment & Plan (1) Choledocholithiasis: Recurrent problem hypertension, stable, currently not on maintenance medications SPN possible malignancy on updated CT Hyperglycemia rule out DM BPH, stable on regimen past tobacco/alcohol abuse as per records OBS GMF Bowel rest, analgesia IVF GI consult RE recurrent choledocholithiasis Outpatient Pulmonary consultation for SPN work-up Check hemoglobin A1c DVT prophylaxis with Lovenox subcu Full code Text document was generated using [employer] voice recognition software. It may contain grammatical or spelling errors. Kindly contact undersigned for clarification of any documentation item in [employer] ion. History of Present Illness Chief Complaint: Abdominal pain Primary Care Provider: Iván Sethi DO History obtained from patient and records. Medical history significant for hypertension, BPH, past tobacco/alcohol abuse as per records, history choledocholithiasis, history of pancreatitis, history of pulmonary nodule. Recent confinement August 2023 gallstone pancreatitis/choledocholithiasis. Patient underwent ERCP with subsequent duodenal stricture dilatation, sphincterotomy, and balloon extraction of CBD stone Patient experienced achy epigastric pain with nausea reminiscent of gallstone attack after dinner with dessert ice cream last night. No chest pain, no cough, no S OB, no fever, no chills. Patient denies recent EtOH intake. Patient consulted ER for evaluation. Medical History as above CT chest March 2020 showed 9 mm nodule right lower lobe. Recommend CT follow-up in 9 to 12 months. Patient yet to go for outpatient Pulmonology referral. 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 Allergies Allergy/AdvReac Type Severity Reaction Status Date / Time hydrochlorothiazide Allergy Severe PANCREATITI Verified 11/28/20 23:08 S meloxicam Allergy Mild RASH Verified 11/28/20 23:08 gabapentin AdvReac Severe Fainting Verified 11/28/20 23:08 Home Medications Medication Instructions Recorded Confirmed Type tamsulosin 0.4 mg PO QPM 11/11/18 11/28/20 History dutasteride 0.5 mg PO QPM 08/09/19 11/28/20 History Past Med/Surg History Medical History (Updated 11/29/20 @ 00:07 by Davion Quiñonez MD) BPH (benign prostatic hyperplasia) DDD (degenerative disc disease) History of hypertension controlled since weight loss Osteoarthritis Spinal stenosis B/L LE radiculopathy Surgical History History of appendectomy History of carpal tunnel surgery RIGHT HAND History of colonoscopy History of tonsillectomy and adenoidectomy Hx of hernia repair RIGHT INGUINAL Hx of toe surgery HAD TOENAIL REMOVED IN OFFICE 12/2018 Hx of tonsillectomy Previous back surgery Family History Mother Liver cancer Social History Smoking Status: Never smoker Tobacco Type: Cigarettes Second Hand Exposure: No; Hx Alcohol Use: No Hx Substance Use: No Preferred Language: Tajik Communication Ability: Effective Visual Impairment: No Limitations Print Manager Required: No Beliefs That Will Affect Care: None marital status: Current Living Situation: Spouse Current Living Situation Comment: 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 HE IS TRYING TO FIND SOMEONE Other Information That Helps Us Care for You: No Feels Safe at Home: Yes Safety Concerns: Feels Safe At This Time Assistive Devices: Cane, Denture - Upper and Glasses Review of Systems Review of Systems: As per HPI, chronic back/left hip pain, all 10 systems reviewed, all other ROS negative Physical Exam Physical Exam: GENERAL: Slightly uncomfortable, slightly anxious, no respiratory distress SKIN: Normal color, warm HEENT: Hodgen palpebral conjunctivae, no ptosis, dry buccal mucosa NECK : Supple, no tenderness CHEST : Decreased breath sounds, no tenderness HEART : RRR, no obvious murmurs ABDOMEN: Some distention, minimal epigastric tenderness EXTREMITIES : No LE swelling/tenderness, no other conspicuous deformities noted NEUROLOGIC : Coherent, no facial asymmetry, mild hearing impairment, no other gr oss focality Results & Data Results & Data ([facility]) Vital Signs (Past 12 Hours) Vital Signs Temp Pulse Resp BP Pulse Ox 11/28/20 23:12 18 94 11/28/20 23:02 83 20 135/72 95 11/28/20 22:32 92 H 19 132/81 96 11/28/20 22:02 37.0 C 72 18 126/74 92 11/28/20 22:00 96 H 20 129/66 94 Laboratory Results Laboratory Results WBC 7.40 K/uL (4.8-10.8) 11/28/20 21:55 RBC 4.68 M/uL (4.7-6.1) L 11/28/20 21:55 Hgb 15.3 g/dL (14.0-18.0) 11/28/20 21:55 Hct 43.6 % (42-52) 11/28/20 21:55 MCV 93.2 fL (80-100) 11/28/20 21:55 MCH 32.7 pg (25-34) 11/28/20 21:55 MCHC 35.1 g/dL (32-36) 11/28/20 21:55 RDW Std Deviation 44.4 fL (36.4-46.3) 11/28/20 21: RDW Coeff of Jocelyn 13.1 % (11.5-14.5) 11/28/20 21: Plt Count 181 K/uL (130-400) 11/28/20 21:55 MPV 9.5 fL (7.4-10.4) 11/28/20 21:55 Immature Gran % (Auto) 0.1 % 11/28/20 21:55 Neut % (Auto) 85.5 % 11/28/20 21:55 Lymph % (Auto) 6.5 % 11/28/20 21:55 [place] % (Auto) 6.1 % 11/28/20 21:55 Eos % (Auto) 1.5 % 11/28/20 21:55 Baso % (Auto) 0.3 % 11/28/20 21:55 Neut # (Auto) 6.33 K/uL (1.4-6.5) 11/28/20 21:55 Lymph # (Auto) 0.48 K/uL (1.2-3.4) L 11/28/20 21:55 [place] # (Auto) 0.45 K/uL (0.11-0.59) 11/28/20 21:55 Eos # (Auto) 0.11 K/uL (0-0.5) 11/28/20 21:55 Baso # (Auto) 0.02 K/uL (0-0.2) 11/28/20 21:55 Immature Gran # (Auto) 0.01 K/uL (0.00-0.02) 11/28/20 21:55 Sodium 141 mmol/L (136-145) 11/28/20 21:55 Potassium 3.9 mmol/L (3.5-5.1) 11/28/20 21:55 Chloride 107 mmol/L (98-107) 11/28/20 21:55 Carbon Dioxide 29 mmol/L (21-32) 11/28/20 21:55 Anion Gap 5.0 (3-11) 11/28/20 21:55 BUN 17 mg/dl (7-18) 11/28/20 21:55 Creatinine 0.94 mg/dl (0.6-1.4) 11/28/20 21:55 Est Cr Clr Drug Dosing 60.4 ml/min 11/28/20 21:55 Est GFR ( Amer) 85.9 ml/min 11/28/20 21:55 Est GFR (Non-Af Amer) 74.2 ml/min 11/28/20 21:55 BUN/Creatinine Ratio 18.0 (10-20) 11/28/20 21:55 Glucose 126 mg/dl (70-99) H 11/28/20 21:55 Calcium 9.5 mg/dl (8.5-10.1) 11/28/20 21:55 Magnesium 2.3 mg/dl (1.8-2.4) 11/28/20 21:55 Total Bilirubin 1.3 mg/dl (0.2-1) H 11/28/20 21:55 AST 165 U/L (15-37) H 11/28/20 21:55 ALT 91 U/L (12-78) H 11/28/20 21:55 Alkaline Phosphatase 121 U/L (45-117) H 11/28/20 21:55 Troponin I < 0.015 ng/ml (0-0.045) 11/28/20 21:55 Total Protein 7.1 gm/dl (6.4-8.2) 11/28/20 21:55 Albumin 3.6 gm/dl (3.4-5.0) 11/28/20 21:55 Globulin 3.5 gm/dl (2.5-4.0) 11/28/20 21:55 Albumin/Globulin Ratio 1.0 (0.9-2) 11/28/20 21:55 Lipase 150 U/L (73-393) 11/28/20 21:55 Specimen Hemolysis 11/28/20 21:55 Urine Color Dark Yellow 11/28/20 22:16 Urine Appearance Clear (Clear) 11/28/20 22:16 Urine pH 5.5 (4.5-7.5) 11/28/20 22:16 Ur Specific [place] 1.022 (1.000-1.030) 11/28/20 22:16 Urine Protein Negative (Negative) 11/28/20 22:16 Urine Glucose (UA) Negative (Negative) 11/28/20 22:16 Urine Ketones Negative (Negative) 11/28/20 22:16 Urine Blood Negative (Negative) 11/28/20 22:16 Urine Nitrite Negative (Negative) 11/28/20 22:16 Urine Bilirubin Negative (Negative) 11/28/20 22:16 Urine Urobilinogen Negative (Negative) 11/28/20 22:16 Ur Leukocyte Esterase Trace (Negative) H 11/28/20 22:16 Urine WBC (Auto) 1-5 /hpf (0-5) 11/28/20 22:16 Urine RBC (Auto) 0-4 /hpf (0-4) 11/28/20 22:16 U Hyaline Cast (Auto) 1-5 /lpf (0-5) 11/28/20 22:16 U Epithel Cells (Auto) 5-10 /lpf (0-5) H 11/28/20 22:16 Urine Bacteria (Auto) Negative (Negative) 11/28/20 22:16 Urine Crystals Not Reportable 11/28/20 22:16 Calcium Oxalate Crystal Present (None Prsent) A 11/28/20 22:16 Urine Mucus Present (None Prsent) A 11/28/20 22:16 COVID-19 Eval Order Covid19 at [facility] 11/28/20 23:22 Impressions Abdomen/Pelvis CT 11/28/20 22:[address] WITHOUT CONTRAST CT DOSE: 479.70 mGy.cm HISTORY: upper abd pain TECHNIQUE: Multiaxial CT images of the abdomen and pelvis were performed without contrast. A dose lowering technique was utilized adhering to the principles of ALARA. COMPARISON STUDY: Abdomen and pelvis CT 08/11/2019. FINDINGS: An 11 mm slightly spiculated nodule within the right lower lobe on image 39. This is increased in size in the prior study when it measured 9 mm. Therefore, this is consistent with a primary bronchogenic malignancy. The left lung base is essentially clear. Mild elevation of the left hemidiaphragm, unchanged. No pneumoperitoneum. No pneumatosis. Posterior decompression within the lumbar spine is again noted. There are old, healed right-sided rib fractures. Small hiatus hernia, unchanged. There are 2 diverticula of the duodenum with the largest measuring 2.8 cm. Mild intrahepatic bile duct dilatation remains unchanged. Prior cholecystectomy. No definite hepatic or splenic masses. Normal adrenal glands. The unenhanced pancreas is unremarkable. No hydronephrosis. There is a punctate stone within the upper pole of the left kidney. No definite right renal calculi. No ureteral calculi. A few small bladder stones are noted. The prostate gland is mildly enlarged. No pelvic free fluid. Small hyperdense foci layering within the common bile duct measuring up to 7 mm. This is best seen image 139. These likely represent small stones. The common bile duct remains mildly distended up to 1.3 cm. No retroperitoneal lymphadenopathy. Calcified plaque within the normal caliber abdominal aorta. Suboptimal evaluation for bowel pathology due to the lack of intravenous and oral contrast. However, there is no definite bowel wall thickening or obstruction. Colonic diverticulosis. No evidence for acute diverticulitis. IMPRESSION: 1. Small hyperdense foci within the mildly distended common bile duct measuring up to 7 mm. This is consistent with choledocholithiasis. 2. Prior cholecystectomy. 3. Increase in size in the 11 mm spiculated nodule within the right lower lobe. This is consistent with a primary bronchogenic malignancy. 4. Decrease in size and number of the small bladder calculi. 5. Extensive colonic diverticulosis. No evidence for acute diverticulitis. 6. Left-sided nephrolithiasis. No hydronephrosis. ACT 112: Negative or not required by law. Electronically signed by: Jeff Zhu M.D. 11/28/2020 11:12 PM Diagnostic Findings Chest x-ray as per my interpretation atelectasis EKG as per my interpretation : Rate 70, NSR, normal axis, T wave abnormalities lateral leads, low voltage
[2020-11-29] MEDS ORDERED: IPRATROPIUM BROMIDE NEB SOLN 0.02% 2.5 ML VIAL INH PRN (02:00)
[2020-11-29] MEDS ORDERED: oxyCODONE HCL IR 5 MG TAB (IMMEDIATE RELEASE) PO PRN (02:00)
[2020-11-29] MEDS ORDERED: MoRPHine SULFATE 2 MG/ML CARP IV PRN (02:00)
[2020-11-29] MEDS ORDERED: ACETAMINOPHEN 325 MG TAB PO PRN (02:00)
[2020-11-29] MEDS ORDERED: XOPENEX/ATROVENT 1.25mg/0.5MG NEB COMBO NEB PRN (02:00)
[2020-11-29] MEDS ORDERED: LEVALBUTEROL 1.25MG/0.5ML NEB INH PRN (02:00)
[2020-11-29] MEDS ORDERED: PROMETHAZINE HCL 6.25 MG in SODIUM CHLORIDE 0.9% 50 ML IV PRN (02:00)
[2020-11-29] MEDS: LACTATED RINGER'S 1,000 ML IV SCH ×2 (02:16→15:45)
[2020-11-29 05:52] LABS: Basophils # (auto) 0.01 K/uL (0-0.2); Basophils % (auto) 0.1 %; Eosinophils # (auto) 0.01 K/uL (0-0.5); Eosinophils % (auto) 0.1 %; Hematocrit (blood only) 42.3 % (42-52); Hemoglobin 15.2 g/dL (14.0-18.0); Immature Granulocytes # (auto) 0.02 K/uL (0.00-0.02); Immature Granulocytes % (auto) 0.2 %; Lymphocytes # (auto) 0.37 K/uL (1.2-3.4); Lymphocytes % (auto) 3.1 %; Mean Corpuscular Hemoglobin 33.3 pg (25-34); Mean Corpuscular Hgb Conc 35.9 g/dL (32-36); Mean Corpuscular Volume 92.8 fL (80-100); Mean Platelet Volume 9.2 fL (7.4-10.4); Monocytes # (auto) 0.99 K/uL (0.11-0.59); Monocytes % (auto) 8.3 %; Neutrophils # (auto) 10.57 K/uL (1.4-6.5); Neutrophils % (auto) 88.2 %; Platelet Count 161 K/uL (130-400); RDW Coefficient of Variation 13.1 % (11.5-14.5); RDW Standard Deviation 44.1 fL (36.4-46.3); Red Blood Count 4.56 M/uL (4.7-6.1); White Blood Count 11.97 K/uL (4.8-10.8)
[2020-11-29 06:10] LABS: Estimated Average Glucose 100 mg/dl; Hemoglobin A1C 5.1 % (4.5-5.6)
[2020-11-29 06:23] LABS: Albumin Level 3.4 gm/dl (3.4-5.0); BUN Creatinine Ratio 17.2 (10-20); Calcium 9.2 mg/dl (8.5-10.1); Creatinine Clr Calc Pharmacy 70.1 ml/min; Est GFR (African American) 94.6 ml/min; Est GFR (Non-African American) 81.6 ml/min; Potassium 3.8 mmol/L (3.5-5.1)
[2020-11-29 06:26] LABS: Bilirubin,Total 1.1 mg/dl (0.2-1); Globulin 3.4 gm/dl (2.5-4.0); Total Protein 6.8 gm/dl (6.4-8.2)
[2020-11-29] MEDS ORDERED: PIPERACILLIN/TAZOBACTAM 3.375 GM in DEXTROSE 5% 100 ML IV STA (07:36)
--- NOTE | 2020-11-29 08:22 | XRay Report ---
XR chest 1V portable HISTORY: 85 years-old Male low o2 acute hypoxia COMPARISON: Chest radiographs 08/11/2019 TECHNIQUE: Portable AP view of the chest FINDINGS: Cardiac mediastinal and hilar silhouettes are within normal limits. Calcified plaque of the thoracic aorta. No pneumothorax, large pleural effusion or overt pulmonary edema. Chronic interstitial coarsen ing of the lung bases. Degenerative changes of the shoulders and spine. IMPRESSION: No acute process. ACT 112: Negative or not required by law. The above report was generated using voice recognition software. It may contain grammatical, syntax o r spelling errors. Electronically signed by: Roldan Gore M.D. 11/29/2020 8:21 AM
[2020-11-29] MEDS: ENOXAPARIN INJ 30 MG/0.3 ML SYR SQ SCH (08:39)
[2020-11-29] MEDS ORDERED: PIPERACILL/TAZOBAC CONSULT ACTIVE PRN (09:08)
--- NOTE | 2020-11-29 09:47 | Hospitalist Progress Note ---
Date of Service November 29, 2020 Assessment & Plan (1) Choledocholithiasis: Recurrent problem Bowel rest, analgesia IVF GI consult RE recurrent choledocholithiasis WBC 7.4K on admission, now elevated at 11.9 thousand, concern for possible cholangitis developing Received IV antibiotics in the ED, will start IV Zosyn Awaiting GI consult Hypertension, stable, currently not on maintenance medications SPN possible malignancy on updated CT Outpatient Pulmonary consultation for SPN work-up Hyperglycemia rule out DM Check hemoglobin A1c BPH, stable on regimen past tobacco/alcohol abuse as per records DVT prophylaxis with Lovenox subcu Full code Admission and Anticipated Discharge Date Admission Date: November 29, 2020 Subjective Patient admitted early this morning, for choledocholithiasis, abd. pain LFTs elevated, white blood cell count also elevated received antibiotic in the ER Currently pain seems to be well controlled No chest pain or shortness of breath Awaiting GI consult Review of Systems Review of Systems: All systems reviewed & are unremarkable except as noted in HPI & below Constitutional: no fever and no chills Respiratory: no cough and no dyspnea Cardiovascular: no chest pain and no palpitations Gastrointestinal: + abdominal pain (improved); no vomiting and no hematemesis Physical Exam Physical Exam: GENERAL: WD/WN, male laying in bed, no acute distress HEENT: NC/AT, EOMI, [place] palpebral conjunctivae NECK : Supple, no tenderness CHEST : Decreased breath sounds, CTAB, no wheezing, crackles, rhonchi HEART : RRR, no obvious murmurs ABDOMEN: min. distention, minimal epigastric tenderness, soft, + bowel sounds EXTREMITIES : No LE swelling/tenderness, moves extremities spontaneously NEUROLOGIC : awake and alert, answering questions appropriately but sleepy (after receiving pain meds) no facial asymmetry, mild hearing impairment SKIN: Normal color, warm Results & Data Results & Data ([facility]) Vital Signs (Past 12 Hours) Vital Signs Temp Pulse Pulse Resp BP BP BP 11/29/20 07:20 36.4 C L 74 16 109/61 11/29/20 01:59 36.9 C 98 H 14 140/70 11/29/20 01:31 83 24 131/71 11/29/20 01:00 79 24 134/75 11/29/20 00:30 84 24 137/64 11/29/20 00:00 82 20 126/64 11/28/20 23:30 83 20 126/59 L 11/28/20 23:12 18 11/28/20 23:02 83 20 135/72 11/28/20 22:32 92 H 19 132/81 11/28/20 22:02 37.0 C 72 18 126/74 11/28/20 22:00 96 H 20 129/66 Pulse Ox 11/29/20 07:20 95 11/29/20 01:59 90 11/29/20 01:31 96 11/29/20 01:00 96 11/29/20 00:30 96 11/29/20 00:00 95 11/28/20 23:30 95 11/28/20 23:12 94 11/28/20 23:02 95 11/28/20 22:32 96 11/28/20 22:02 92 11/28/20 22:00 94 Laboratory Results 11/29/20 11/29/20 11/28/20 Range/Units 05:30 05:30 23:22 WBC 11.97 H (4.8-10.8) K/uL RBC 4.56 L (4.7-6.1) M/uL Hgb 15.2 (14.0-18.0) g/dL Hct 42.3 (42-52) % MCV 92.8 (80-100) fL MCH 33.3 (25-34) pg MCHC 35.9 (32-36) g/dL RDW Std Deviation 44.1 (36.4-46.3) fL RDW Coeff of Jocelyn 13.1 (11.5-14.5) % Plt Count 161 (130-400) K/uL MPV 9.2 (7.4-10.4) fL Immature Gran % (Auto) 0.2 % Neut % (Auto) 88.2 % Lymph % (Auto) 3.1 % [place] % (Auto) 8.3 % Eos % (Auto) 0.1 % Baso % (Auto) 0.1 % Neut # (Auto) 10.57 H (1.4-6.5) K/uL Lymph # (Auto) 0.37 L (1.2-3.4) K/uL [place] # (Auto) 0.99 H (0.11-0.59) K/uL Eos # (Auto) 0.01 (0-0.5) K/uL Baso # (Auto) 0.01 (0-0.2) K/uL Immature Gran # (Auto) 0.02 (0.00-0.02) K/uL Sodium 140 (136-145) mmol/L Potassium 3.8 (3.5-5.1) mmol/L Chloride 110 H (98-107) mmol/L Carbon Dioxide 26 (21-32) mmol/L Anion Gap 4.0 (3-11) BUN 14 (7-18) mg/dl Creatinine 0.81 (0.6-1.4) mg/dl Est Cr Clr Drug Dosing 70.1 ml/min Est GFR ( Amer) 94.6 ml/min Est GFR (Non-Af Amer) 81.6 ml/min BUN/Creatinine Ratio 17.2 (10-20) Glucose 121 H (70-99) mg/dl Estimat Average Glucose mg/dl Hemoglobin A1c (4.5-5.6) % Calcium 9.2 (8.5-10.1) mg/dl Magnesium (1.8-2.4) mg/dl Total Bilirubin 1.1 H (0.2-1) mg/dl AST 172 H (15-37) U/L ALT 157 H (12-78) U/L Alkaline Phosphatase 135 H (45-117) U/L Troponin I (0-0.045) ng/ml Total Protein 6.8 (6.4-8.2) gm/dl Albumin 3.4 (3.4-5.0) gm/dl Globulin 3.4 (2.5-4.0) gm/dl Albumin/Globulin Ratio 1.0 (0.9-2) Lipase (73-393) U/L Specimen Hemolysis Urine Color Urine Appearance (Clear) Urine pH (4.5-7.5) Ur Specific [place] (1.000-1.030) Urine Protein (Negative) Urine Glucose (UA) (Negative) Urine Ketones (Negative) Urine Blood (Negative) Urine Nitrite (Negative) Urine Bilirubin (Negative) Urine Urobilinogen (Negative) Ur Leukocyte Esterase (Negative) Urine WBC (Auto) (0-5) /hpf Urine RBC (Auto) (0-4) /hpf U Hyaline Cast (Auto) (0-5) /lpf U Epithel Cells (Auto) (0-5) /lpf Urine Bacteria (Auto) (Negative) Urine Crystals Calcium Oxalate Crystal (None Prsent) Urine Mucus (None Prsent) COVID-19 Eval Order SARS-CoV-2 (PCR) NEGATIVE (Negative) 11/28/20 11/28/20 11/28/20 Range/Units 23:22 22:16 21:55 WBC (4.8-10.8) K/uL RBC (4.7-6.1) M/uL Hgb (14.0-18.0) g/dL Hct (42-52) % MCV (80-100) fL MCH (25-34) pg MCHC (32-36) g/dL RDW Std Deviation (36.4-46.3) fL RDW Coeff of Jocelyn (11.5-14.5) % Plt Count (130-400) K/uL MPV (7.4-10.4) fL Immature Gran % (Auto) % Neut % (Auto) % Lymph % (Auto) % [place] % (Auto) % Eos % (Auto) % Baso % (Auto) % Neut # (Auto) (1.4-6.5) K/uL Lymph # (Auto) (1.2-3.4) K/uL [place] # (Auto) (0.11-0.59) K/uL Eos # (Auto) (0-0.5) K/uL Baso # (Auto) (0-0.2) K/uL Immature Gran # (Auto) (0.00-0.02) K/uL Sodium (136-145) mmol/L Potassium (3.5-5.1) mmol/L Chloride (98-107) mmol/L Carbon Dioxide (21-32) mmol/L Anion Gap (3-11) BUN (7-18) mg/dl Creatinine (0.6-1.4) mg/dl Est Cr Clr Drug Dosing ml/min Est GFR ( Amer) ml/min Est GFR (Non-Af Amer) ml/min BUN/Creatinine Ratio (10-20) Glucose (70-99) mg/dl Estimat Average Glucose 100 mg/dl Hemoglobin A1c 5.1 (4.5-5.6) % Calcium (8.5-10.1) mg/dl Magnesium (1.8-2.4) mg/dl Total Bilirubin (0.2-1) mg/dl AST (15-37) U/L ALT (12-78) U/L Alkaline Phosphatase (45-117) U/L Troponin I (0-0.045) ng/ml Total Protein (6.4-8.2) gm/dl Albumin (3.4-5.0) gm/dl Globulin (2.5-4.0) gm/dl Albumin/Globulin Ratio (0.9-2) Lipase (73-393) U/L Specimen Hemolysis Urine Color Dark Yellow Urine Appearance Clear (Clear) Urine pH 5.5 (4.5-7.5) Ur Specific [place] 1.022 (1.000-1.030) Urine Protein Negative (Negative) Urine Glucose (UA) Negative (Negative) Urine Ketones Negative (Negative) Urine Blood Negative (Negative) Urine Nitrite Negative (Negative) Urine Bilirubin Negative (Negative) Urine Urobilinogen Negative (Negative) Ur Leukocyte Esterase Trace H (Negative) Urine WBC (Auto) 1-5 (0-5) /hpf Urine RBC (Auto) 0-4 (0-4) /hpf U Hyaline Cast (Auto) 1-5 (0-5) /lpf U Epithel Cells (Auto) 5-10 H (0-5) /lpf Urine Bacteria (Auto) Negative (Negative) Urine Crystals Not Reportable Calcium Oxalate Crystal Present A (None Prsent) Urine Mucus Present A (None Prsent) COVID-19 Eval Order Covid19 at [facility] SARS-CoV-2 (PCR) (Negative) 11/28/20 11/28/20 Range/Units 21:55 21:55 WBC 7.40 (4.8-10.8) K/uL RBC 4.68 L (4.7-6.1) M/uL Hgb 15.3 (14.0-18.0) g/dL Hct 43.6 (42-52) % MCV 93.2 (80-100) fL MCH 32.7 (25-34) pg MCHC 35.1 (32-36) g/dL RDW Std Deviation 44.4 (36.4-46.3) fL RDW Coeff of Jocelyn 13.1 (11.5-14.5) % Plt Count 181 (130-400) K/uL MPV 9.5 (7.4-10.4) fL Immature Gran % (Auto) 0.1 % Neut % (Auto) 85.5 % Lymph % (Auto) 6.5 % [place] % (Auto) 6.1 % Eos % (Auto) 1.5 % Baso % (Auto) 0.3 % Neut # (Auto) 6.33 (1.4-6.5) K/uL Lymph # (Auto) 0.48 L (1.2-3.4) K/uL [place] # (Auto) 0.45 (0.11-0.59) K/uL Eos # (Auto) 0.11 (0-0.5) K/uL Baso # (Auto) 0.02 (0-0.2) K/uL Immature Gran # (Auto) 0.01 (0.00-0.02) K/uL Sodium 141 (136-145) mmol/L Potassium 3.9 (3.5-5.1) mmol/L Chloride 107 (98-107) mmol/L Carbon Dioxide 29 (21-32) mmol/L Anion Gap 5.0 (3-11) BUN 17 (7-18) mg/dl Creatinine 0.94 (0.6-1.4) mg/dl Est Cr Clr Drug Dosing 60.4 ml/min Est GFR ( Amer) 85.9 ml/min Est GFR (Non-Af Amer) 74.2 ml/min BUN/Creatinine Ratio 18.0 (10-20) Glucose 126 H (70-99) mg/dl Estimat Average Glucose mg/dl Hemoglobin A1c (4.5-5.6) % Calcium 9.5 (8.5-10.1) mg/dl Magnesium 2.3 (1.8-2.4) mg/dl Total Bilirubin 1.3 H (0.2-1) mg/dl AST 165 H (15-37) U/L ALT 91 H (12-78) U/L Alkaline Phosphatase 121 H (45-117) U/L Troponin I < 0.015 (0-0.045) ng/ml Total Protein 7.1 (6.4-8.2) gm/dl Albumin 3.6 (3.4-5.0) gm/dl Globulin 3.5 (2.5-4.0) gm/dl Albumin/Globulin Ratio 1.0 (0.9-2) Lipase 150 (73-393) U/L Specimen Hemolysis Urine Color Urine Appearance (Clear) Urine pH (4.5-7.5) Ur Specific [place] (1.000-1.030) Urine Protein (Negative) Urine Glucose (UA) (Negative) Urine Ketones (Negative) Urine Blood (Negative) Urine Nitrite (Negative) Urine Bilirubin (Negative) Urine Urobilinogen (Negative) Ur Leukocyte Esterase (Negative) Urine WBC (Auto) (0-5) /hpf Urine RBC (Auto) (0-4) /hpf U Hyaline Cast (Auto) (0-5) /lpf U Epithel Cells (Auto) (0-5) /lpf Urine Bacteria (Auto) (Negative) Urine Crystals Calcium Oxalate Crystal (None Prsent) Urine Mucus (None Prsent) COVID-19 Eval Order SARS-CoV-2 (PCR) (Negative) Medications Administered Current Inpatient Medications Acetaminophen (Acetaminophen 325 Mg Tab) 325 mg PO Q6H PRN PRN Reason: Mild Pain Stop: 12/29/20 01:59 Enoxaparin Sodium (Enoxaparin Inj 30 Mg/0.3 Ml Syr) 30 mg SQ QAM [facility] Stop: 12/29/20 08:59 Last Admin: 11/29/20 08:39 Dose: Not Given Documented by: Lactated Ringer's (Lr) 1,000 mls @ 75 mls/hr IV .[id number] [facility] Stop: 12/29/20 01:59 Last Infusion: 11/29/20 09:07 Dose: 75 mls/hr Documented by: Promethazine HCl 6.25 mg/ (Sodium Chloride) 50.25 mls @ 201 mls/hr IV Q6H PRN PRN Reason: Nausea And Vomiting Stop: 12/29/20 01:59 Piperacillin Sod/Tazobactam (Sod 3.375 gm/ Dextrose) 115 mls @ 28.75 mls/hr IV Q8H [facility]; Protocol Stop: 12/09/20 13:59 Ipratropium Blanco (Ipratropium Blanco Neb Soln 0.02% 2.5 Ml Vial) 0.5 mg INH Q4H PRN PRN Reason: Shortness Of Breath Or Wheezing Stop: 12/29/20 01:59 Levalbuterol HCl (Levalbuterol 1.25mg/0.5ml Neb) 1.25 mg INH Q4H PRN PRN Reason: Shortness Of Breath Or Wheezing Stop: 12/29/20 01:59 Miscellaneous (Dutasteride: Order Awaiting Action) 1 ea N/A QS [facility] Stop: 12/29/20 07:59 Last Admin: 11/29/20 08:32 Dose: Not Given Documented by: Miscellaneous Information (Piperacill/Tazobac Consult Active) 1 ea N/A UD PRN PRN Reason: Consult Stop: 12/29/20 09:07 Morphine Sulfate (Morphine Sulfate 2 Mg/Ml [place]) 2 mg IV Q3H PRN PRN Reason: Pain Stop: 12/13/20 01:59 Oxycodone HCl (Oxycodone Hcl Ir 5 Mg Tab (Immediate Release)) 5 mg PO Q4H PRN PRN Reason: Pain Stop: 12/13/20 01:59 Last Admin: 11/29/20 02:14 Dose: 5 mg Documented by: Tamsulosin HCl (Tamsulosin Hcl 0.4 Mg Cap) 0.4 mg PO QPM [facility] Stop: 12/29/20 20:59
[2020-11-29] MEDS: PIPERACILLIN/TAZOBACTAM 3.375 GM in DEXTROSE 5% 100 ML IV SCH ×2 (13:52→21:59)
[2020-11-29] MEDS ORDERED: diphenhydrAMINE 50 MG/ML VIAL IV STA (15:26)
[2020-11-29] MEDS ORDERED: FAMOTIDINE 20 MG in SYRINGE 3 ML IV ONE (15:45)
--- NOTE | 2020-11-29 16:29 | Gastrointestinal Consultation ---
Date of Consultation November 29, 2020 Assessment & Plan (1) Choledocholithiasis: (2) Acute upper abdominal pain: currently stable, on abx. recurrent problem. Recs: clear liquid diet today and tomorrow NPO post midnight tuesday night ERCP tuesdaydecember [address] Carranza continue IV abx including zosyn supportive care, rest as per primary team Thank you for allowing me to participate in the care of this patient. History of Present Illness Attending Physician: Evan Barksdale MD 85 yo male with hx choledocholithiasis here with abd pains and nausea. CT A/P showed choledocholithiasis again. He had ERCP for this same issue with sphincterotomy in aug [address] Carranza. Tbili noted to be <2 and WBC mildly elevated. On abx currently. Symptoms began at night, afebrile currently. labs reviewed, VSS. Allergies Allergy/AdvReac Type Severity Reaction Status Date / Time hydrochlorothiazide Allergy Severe PANCREATITI Verified 11/28/20 23:08 S meloxicam Allergy Mild RASH Verified 11/28/20 23:08 gabapentin AdvReac Severe Fainting Verified 11/28/20 23:08 Home Medications Medication Instructions Recorded Confirmed Type tamsulosin 0.4 mg PO QPM 11/11/18 11/28/20 History dutasteride 0.5 mg PO QPM 08/09/19 11/28/20 History Patient History Medical History (Updated 11/29/20 @ 00:07 by Davion Quiñonez MD) BPH (benign prostatic hyperplasia) DDD (degenerative disc disease) History of hypertension controlled since weight loss Osteoarthritis Spinal stenosis B/L LE radiculopathy Surgical History History of appendectomy History of carpal tunnel surgery RIGHT HAND History of colonoscopy History of tonsillectomy and adenoidectomy Hx of hernia repair RIGHT INGUINAL Hx of toe surgery HAD TOENAIL REMOVED IN OFFICE 12/2018 Hx of tonsillectomy Previous back surgery Family History Mother Liver cancer Social History Smoking Status: Never smoker Tobacco Type: Cigarettes Second Hand Exposure: No; Hx Alcohol Use: No Hx Substance Use: No Preferred Language: Portuguese Communication Ability: Effective Visual Impairment: No Limitations Student Life Advisor Required: No Beliefs That Will Affect Care: None marital status: Current Living Situation: Spouse Current Living Situation Comment: 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 HE IS TRYING TO FIND SOMEONE Other Information That Helps Us Care for You: No Feels Safe at Home: Yes Safety Concerns: Feels Safe At This Time Assistive Devices: Denture - Upper and Glasses Review of Systems Constitutional: no fever, no chills and no weight loss Eyes: as per Subjective / HPI Ear, Nose, Mouth, Throat: as per Subjective / HPI Respiratory: no dyspnea and no dyspnea on exertion Cardiovascular: no chest pain and no palpitations Gastrointestinal: as per Subjective / HPI Musculoskeletal: no joint pain and no swelling Integumentary: no rash and no lesions Neurologic: no numbness and no paresthesia Psychiatric: no depression and no anxiety Endocrine: no fatigue Hematologic / Lymphatic: no easy bleeding and no easy bruising Physical Exam Constitutional: WD/WN, vitals as above Eyes: EOM intact bilaterally Neck: normal visual inspection Respiratory: normal respiratory effort, lungs clear to auscultation Cardiovascular: RRR, no murmur, no edema Gastrointestinal (Abdomen): Inspection/Auscultation: abdomen normal to inspection; abdomen not distended Percussion/Palpation: abdomen soft; abdomen nontender and no hepatosplenomegaly Musculoskeletal: Extremities: no cyanosis Gait: normal gait Skin: no rashes, warm and dry Neurologic: moves all extremities Psychiatric: A+Ox3, euthymic affect Results & Data ([facility]) Vital Signs (Past 12 Hours) Vital Signs Temp Pulse Resp BP Pulse Ox 11/29/20 07:20 36.4 C L 74 16 109/61 95 PG Care Time/CCT Total # of Minutes Spent Total Time Spent with Patient: Total time spent is greater than 50% in coord ination of care (as documented) at patient's floor/unit and/or counseling patient: Coding Level of Care Code 31338 Initial Inpt Care Lvl 3 Diagnoses Choledocholithiasis K80.50 Acute upper abdominal pain R10.10
[2020-11-29] MEDS ORDERED: LORATADINE 10 MG TAB PO ONE (18:15)
[2020-11-29] MEDS: TAMSULOSIN HCL 0.4 MG CAP PO SCH (20:21)
[2020-11-29] MEDS ORDERED: MELATONIN 3 MG TAB PO PRN (23:11)
--- NOTE | 2020-11-30 00:13 | Electrocardiogram Report ---
Test Reason : Blood Pressure : / mmHG Vent. Rate : 070 BPM Atrial Rate : 070 BPM P-R Int : 166 ms QRS Dur : 082 ms QT Int : 392 ms P-R-T Axes : 032 -03 072 degrees QTc Int : 423 ms Poor data quality, interpretation may be adversely affected Normal sinus rhythm with sinus arrhythmia Low voltage QRS Borderline ECG When compared with ECG of 20-JUN-2020 02:14, No significant change was found Confirmed by Mike Bellamy ([id number]) on 11/30/2020 12:13:00 AM Referred By: REFERRED SELF Confirmed By:Mike Bellamy
[2020-11-30] MEDS: LACTATED RINGER'S 1,000 ML IV SCH ×2 (03:50→13:49)
[2020-11-30] MEDS: PIPERACILLIN/TAZOBACTAM 3.375 GM in DEXTROSE 5% 100 ML IV SCH ×3 (05:04→22:12)
[2020-11-30 05:45] LABS: Hematocrit (blood only) 39.7 % (42-52); Hemoglobin 13.7 g/dL (14.0-18.0); Mean Corpuscular Hgb Conc 34.5 g/dL (32-36); Mean Corpuscular Volume 95.7 fL (80-100); Mean Platelet Volume 9.3 fL (7.4-10.4); Platelet Count 161 K/uL (130-400); RDW Coefficient of Variation 13.3 % (11.5-14.5); RDW Standard Deviation 45.9 fL (36.4-46.3); Red Blood Count 4.15 M/uL (4.7-6.1); White Blood Count 6.97 K/uL (4.8-10.8)
[2020-11-30 06:12] LABS: Albumin Level 2.8 gm/dl (3.4-5.0); BUN Creatinine Ratio 13.6 (10-20); Calcium 8.9 mg/dl (8.5-10.1); Creatinine Clr Calc Pharmacy 64.5 ml/min; Est GFR (African American) 91.4 ml/min; Est GFR (Non-African American) 78.9 ml/min; Magnesium 2.2 mg/dl (1.8-2.4); Potassium 3.8 mmol/L (3.5-5.1)
[2020-11-30 06:15] LABS: Albumin Globulin Ratio 0.9 (0.9-2); Bilirubin,Total 1.4 mg/dl (0.2-1); Globulin 3.2 gm/dl (2.5-4.0); Phosphorus 2.9 mg/dl (2.5-4.9)
[2020-11-30] MEDS: ENOXAPARIN INJ 30 MG/0.3 ML SYR SQ SCH (07:55)
--- NOTE | 2020-11-30 08:25 | Anesthesiology Consultation ---
Date of Service November 30, 2020 Assessment & Plan (1) Encounter for pre-operative examination: Chart Review Chart Review: Acceptable Risk for Surgery and Patient NOT seen in Pre Admission Testing Consults Requested none History Surgery Operation Date: 11/30/20 10:00 Proposed Procedures p Endoscopic Retrograde Cholangiopancreato(Not Applicable) - Ok Carranza MD Height/Weight Height: 5 ft 10 in Weight: 75 kg Allergies Allergy/AdvReac Type Severity Reaction Status Date / Time hydrochlorothiazide Allergy Severe PANCREATITI Verified 11/28/20 23:08 S meloxicam Allergy Mild RASH Verified 11/28/20 23:08 gabapentin AdvReac Severe Fainting Verified 11/28/20 23:08 Medications Home Medications Medication Instructions Recorded Confirmed Last Taken tamsulosin 0.4 mg PO QPM 11/11/18 11/28/20 06/19/20 dutasteride 0.5 mg PO QPM 08/09/19 11/28/20 06/19/20 Active Medications Generic Name Dose Route Start Last Admin Trade Name Freq PRN Reason Stop Dose Admin Enoxaparin Sodium 30 mg 11/29/20 09:00 11/30/20 07:55 Enoxaparin Inj 30 Mg/0.3 Ml Syr SQ 12/29/20 08:59 Not Given QAM [facility] Lactated Ringer's 1,000 mls @ 75 mls/hr 11/29/20 02:00 11/30/20 03:50 Lr IV 12/29/20 01:59 75 mls/hr .[id number] [facility] Administration Piperacillin Sod/Tazobactam 115 mls @ 28.75 mls/hr 11/29/20 14:00 11/30/20 05:04 Sod 3.375 gm/ Dextrose IV 12/09/20 13:59 28.8 mls/hr Q8H [facility] Administration Protocol Melatonin 3 mg 11/29/20 23:11 11/29/20 23:31 Melatonin 3 Mg Tab PO 12/29/20 23:10 3 mg HS PRN Administration Sleep Miscellaneous 1 ea 11/29/20 08:00 11/30/20 07:56 Dutasteride: Order Awaiting Action N/A 12/29/20 07:59 1 ea QS [facility] Administration Oxycodone HCl 5 mg 11/29/20 02:00 11/29/20 02:14 Oxycodone Hcl Ir 5 Mg Tab (Immediate Release) PO 12/13/20 01:59 5 mg Q4H PRN Administration Pain Tamsulosin HCl 0.4 mg 11/29/20 21:00 11/29/20 20:21 Tamsulosin Hcl 0.4 Mg Cap PO 12/29/20 20:59 0.4 mg QPM [facility] Administration Zinc Acetate/Diphenhydramine 1 appln 11/30/20 04:02 11/30/20 05:03 Diphenhydramine 2%/Zinc 0.1% Cream 28gm Tube EXT 12/30/20 04:01 1 appln QID PRN Administration itchy skin NPO Date Last Intake of Fluids: 11/29/20 Time Last Intake of Fluids: 23:59 Date Last Intake of Solids: 11/29/20 Time Last Intake of Solids: 23:59 Past Medical History Medical History (Updated 11/30/20 @ 08:25 by Jeff Lopez MD) BPH (benign prostatic hyperplasia) DDD (degenerative disc disease) History of hypertension controlled since weight loss Osteoarthritis Spinal stenosis B/L LE radiculopathy Past Family History Family History Mother Liver cancer Past Surgical History Surgical History History of appendectomy History of carpal tunnel surgery RIGHT HAND History of colonoscopy History of tonsillectomy and adenoidectomy Hx of hernia repair RIGHT INGUINAL Hx of toe surgery HAD TOENAIL REMOVED IN OFFICE 12/2018 Hx of tonsillectomy Previous back surgery Social History Smoking Status: Never smoker tobacco type: cigarettes Hx Alcohol Use: No Alcohol type: hard liquor alcohol intake frequency: 0-2 drinks per day Hx Substance Use: No substance use type: does not use Physical Exam Vital Signs Last Vital Signs Temp 36.8 C 11/30/20 07:29 Pulse 53 L 11/30/20 07:29 Resp 16 11/30/20 07:29 BP 131/64 11/30/20 07:29 Pulse Ox 92 11/30/20 07:29 Testing Laboratory Results 11/30/20 05:26 11/30/20 05:26 Hemoglobin A1c 5.1 % (4.5-5.6) 11/28/20 21:55 Urine Color Dark Yellow 11/28/20 22:16 Urine Appearance Clear (Clear) 11/28/20 22:16 Urine pH 5.5 (4.5-7.5) 11/28/20 22:16 Ur Specific [place] 1.022 (1.000-1.030) 11/28/20 22:16 Urine Protein Negative (Negative) 11/28/20 22:16 Urine Glucose (UA) Negative (Negative) 11/28/20 22:16 Urine Ketones Negative (Negative) 11/28/20 22:16 Urine Nitrite Negative (Negative) 11/28/20 22:16 Ur Leukocyte Esterase Trace (Negative) H 11/28/20 22:16 Urine WBC (Auto) 1-5 /hpf (0-5) 11/28/20 22:16 Urine RBC (Auto) 0-4 /hpf (0-4) 11/28/20 22:16 U Hyaline Cast (Auto) 1-5 /lpf (0-5) 11/28/20 22:16 U Epithel Cells (Auto) 5-10 /lpf (0-5) H 11/28/20 22:16 Urine Bacteria (Auto) Negative (Negative) 11/28/20 22:16 Electrocardiogram Date: 11/28/20 SR with sinus arrhythmia, rate 70, low voltage QRS Chest X-Ray Date: 11/28/20 XR chest 1V portable HISTORY: 85 years-old Male low o2 acute hypoxia COMPARISON: Chest radiographs 08/11/2019 TECHNIQUE: Portable AP view of the chest FINDINGS: Cardiac mediastinal and hilar silhouettes are within normal limits. Calcified plaque of the thoracic aorta. No pneumothorax, large pleural effusion or overt pulmonary edema. Chronic interstitial coarsening of the lung bases. Degenerative changes of the shoulders and spine. IMPRESSION: No acute process. ACT 112: Negative or not required by law. The above report was generated using voice recognition software. It may contain grammatical, syntax or spelling errors. Electronically signed by: Roldan Gore M.D. 11/29/2020 8:21 AM Dictated: 11/29/20819Transcribed: 11/29/20819 Stress Test Date: 12/27/18 Type: DSE Resting EF: 55-[address] Function: normal
[2020-11-30] MEDS ORDERED: HYDROmorphone INJ 1 MG/ML SYRINGE IV PRN (08:34)
[2020-11-30] MEDS ORDERED: ePHEDrine sulfate 50 MG/ML AMP IV PRN (08:34)
[2020-11-30] MEDS ORDERED: ONDANSETRON INJ 2 MG/ML 2 ML VIAL IV PRN (08:34)
[2020-11-30] MEDS ORDERED: fentaNYL citrate 100 MCG/2 ML VIAL IV PRN (08:34)
[2020-11-30] MEDS ORDERED: LABETALOL HCL IV 5 MG/ML 20ML IV PRN (08:34)
[2020-11-30] MEDS ORDERED: MEPERIDINE HCL 25 MG/ML CARP/VIAL IV PRN (08:34)
[2020-11-30] MEDS ORDERED: ATROPINE SULFATE 0.1 MG/ML 10ML SYR IV PRN (08:34)
[2020-11-30] MEDS ORDERED: PHENYLEPHRINE 100MCG/ML 5ML SYR IV PRN (08:34)
[2020-11-30] MEDS ORDERED: fentaNYL citrate 100 MCG/2 ML VIAL ONE (09:04)
--- NOTE | 2020-11-30 10:23 | History & Physical Bridge Note ---
Date of Service November 30, 2020 History & Physical Bridge Note I have examined the patient, reviewed the History & Physical and in the interval since the performance of the History & Physical I have noted the following changes of clinical significance: no changes noted ERCP today Patient was explained in detail regarding risks, benefits, limitations and alternatives of the above endoscopic procedure. Risks of intravenous sedation used for procedure were also explained. Risks include, but not limited to perforation, bleeding, infection, respiratory distress, cardiac arrest and . Patient is also aware about the possibility of missed lesion. Patient's questions were answered. The patient verbalized understanding the information and agreed to undergo the procedure.
--- NOTE | 2020-11-30 10:27 | Hospitalist Progress Note ---
Date of Service November 30, 2020 Assessment & Plan (1) Choledocholithiasis: Ascending cholangitis Bowel rest, analgesia IVF GI consult RE recurrent choledocholithiasis - plan for ERCP WBC 7.4K on admission, then elevated at 11.9 K , concern for possible cho langitis developing Received IV antibiotics in the ED, now on IV Zosyn GI consulted -patient is now status post ERCP, with Dr. Carranza, November 30 Benign-appearing recurrent mild stenosis, in the duodenal sweep, balloon dilatation up to 15 mm performed to facilitate passage of the to the scope. Major papilla was located entirely within diverticulum. Ascending cholangitis was found. Choledocholithiasis was found. Complete removal was accomplished by balloon dilation sphincteroplasty and balloon extraction. One plastic biliary stent was placed into the common bile duct. Recommendations: Complete a 7-day course of antibiotics. Repeat EGD/ERCP in 4 to 6 weeks to remove the stent. Clear liquids today. Chronic problems: Hypertension, stable, currently not on maintenance medications SPN possible malignancy on updated CT Outpatient Pulmonary consultation for SPN work-up Hyperglycemia rule out DM Check hemoglobin A1c BPH, stable on regimen past tobacco/alcohol abuse as per records DVT prophylaxis with Lovenox subcu Full code Admission and Anticipated Discharge Date Admission Date: November 29, 2020 Subjective Patient admitted for abd. pain, found to have choledocholithiasis LFTs elevated, white blood cell count also elevated received antibiotic in the ER Currently pain seems to be well controlled No chest pain or shortness of breath GI consulted - pt is now s/p ERCP Review of Systems Review of Systems: All systems reviewed & are unremarkable except as noted in HPI & below Constitutional: no fever and no chills Respiratory: no cough and no dyspnea Cardiovascular: no chest pain and no palpitations Gastrointestinal: + abdominal pain (improved); no nausea and no vomiting Physical Exam Physical Exam: GENERAL: WD/WN, male laying in bed, no acute distress HEENT: NC/AT, EOMI, [place] palpebral conjunctivae NECK : Supple, no tenderness CHEST : CTAB, no wheezing, crackles, rhonchi HEART : RRR, no obvious murmurs ABDOMEN: min. distention, minimal epigastric tenderness, soft, + bowel sounds EXTREMITIES : No LE swelling/tenderness, moves extremities spontaneously NEUROLOGIC : awake and alert, answering questions appropriately but sleepy (after ERCP) no facial asymmetry, mild hearing impairment SKIN: Normal color, warm Results & Data Results & Data ([facility]) Vital Signs (Past 12 Hours) Vital Signs Temp Pulse Resp BP Pulse Ox 11/30/20 07:29 36.8 C 53 L 16 131/64 92 11/29/20 22:34 36.6 C 80 12 95/60 L 93 Laboratory Results 11/30/20 11/30/20 Range/Units 05:26 05:26 WBC 6.97 (4.8-10.8) K/uL RBC 4.15 L (4.7-6.1) M/uL Hgb 13.7 L (14.0-18.0) g/dL Hct 39.7 L (42-52) % MCV 95.7 (80-100) fL MCH 33.0 (25-34) pg MCHC 34.5 (32-36) g/dL RDW Std Deviation 45.9 (36.4-46.3) fL RDW Coeff of Jocelyn 13.3 (11.5-14.5) % Plt Count 161 (130-400) K/uL MPV 9.3 (7.4-10.4) fL Sodium 140 (136-145) mmol/L Potassium 3.8 (3.5-5.1) mmol/L Chloride 107 (98-107) mmol/L Carbon Dioxide 29 (21-32) mmol/L Anion Gap 4.0 (3-11) BUN 12 (7-18) mg/dl Creatinine 0.88 (0.6-1.4) mg/dl Est Cr Clr Drug Dosing 64.5 ml/min Est GFR ( Amer) 91.4 ml/min Est GFR (Non-Af Amer) 78.9 ml/min BUN/Creatinine Ratio 13.6 (10-20) Glucose 83 (70-99) mg/dl Calcium 8.9 (8.5-10.1) mg/dl Phosphorus 2.9 (2.5-4.9) mg/dl Magnesium 2.2 (1.8-2.4) mg/dl Total Bilirubin 1.4 H (0.2-1) mg/dl AST 66 H (15-37) U/L ALT 117 H (12-78) U/L Alkaline Phosphatase 104 (45-117) U/L Total Protein 6.0 L (6.4-8.2) gm/dl Albumin 2.8 L (3.4-5.0) gm/dl Globulin 3.2 (2.5-4.0) gm/dl Albumin/Globulin Ratio 0.9 (0.9-2) Diagnostic Findings IMPRESSION: 1. Small hyperdense foci within the mildly distended common bile duct measuring up to 7 mm. This is consistent with choledocholithiasis. 2. Prior cholecystectomy. 3. Increase in size in the 11 mm spiculated nodule within the right lower lobe. This is consistent with a primary bronchogenic malignancy. 4. Decrease in size and number of the small bladder calculi. 5. Extensive colonic diverticulosis. No evidence for acute diverticulitis. 6. Left-sided nephrolithiasis. No hydronephrosis. Medications Administered Current Inpatient Medications Acetaminophen (Acetaminophen 325 Mg Tab) 325 mg PO Q6H PRN PRN Reason: Mild Pain Stop: 12/29/20 01:59 Atropine Sulfate (Atropine Sulfate 0.1 Mg/Ml 10ml Syr) 0.5 mg IV Q1M PRN PRN Reason: PACU Use-HR<40 &/or Bradycardi Stop: 11/30/20 16:34 Enoxaparin Sodium (Enoxaparin Inj 30 Mg/0.3 Ml Syr) 30 mg SQ QAM [facility] Stop: 12/29/20 08:59 Last Admin: 11/30/20 07:55 Dose: Not Given Documented by: Ephedrine Sulfate (Ephedrine Sulfate 50 Mg/Ml Amp) 5 mg IV Q5M PRN PRN Reason: PACU Use Only-SBP<90 mmHg Stop: 11/30/20 16:34 Fentanyl Citrate (Fentanyl Citrate 100 Mcg/2 Ml Vial) 25 mcg IV Q5M PRN PRN Reason: PACU Use Only-Pain Stop: 11/30/20 16:34 Hydromorphone HCl (Hydromorphone Inj 1 Mg/Ml Syringe) 0.25 mg IV Q5M PRN PRN Reason: PACU Use Only-Pain Stop: 11/30/20 16:34 Lactated Ringer's (Lr) 1,000 mls @ 75 mls/hr IV .[id number] [facility] Stop: 12/29/20 01:59 Last Admin: 11/30/20 03:50 Dose: 75 mls/hr Documented by: Promethazine HCl 6.25 mg/ (Sodium Chloride) 50.25 mls @ 201 mls/hr IV Q6H PRN PRN Reason: Nausea And Vomiting Stop: 12/29/20 01:59 Piperacillin Sod/Tazobactam (Sod 3.375 gm/ Dextrose) 115 mls @ 28.75 mls/hr IV Q8H [place]; Protocol Stop: 12/09/20 13:59 Last Infusion: 11/30/20 09:04 Dose: Infused Documented by: Ipratropium [place] (Ipratropium [place] Neb Soln 0.02% 2.5 Ml Vial) 0.5 mg INH Q4H PRN PRN Reason: Shortness Of Breath Or Wheezing Stop: 12/29/20 01:59 Labetalol HCl (Labetalol Hcl Iv 5 Mg/Ml 20ml) 5 mg IV Q5M PRN PRN Reason: PACU Use-SBP>160 or DBP>100 Stop: 11/30/20 16:34 Levalbuterol HCl (Levalbuterol 1.25mg/0.5ml Neb) 1.25 mg INH Q4H PRN PRN Reason: Shortness Of Breath Or Wheezing Stop: 12/29/20 01:59 Melatonin (Melatonin 3 Mg Tab) 3 mg PO HS PRN PRN Reason: Sleep Stop: 12/29/20 23:10 Last Admin: 11/29/20 23:31 Dose: 3 mg Documented by: Meperidine HCl (Meperidine Hcl 25 Mg/Ml Carp/Vial) 12.5 mg IV Q5M PRN PRN Reason: PACU Use Only-Pain/Shivering Stop: 11/30/20 16:34 Miscellaneous (Dutasteride: Order Awaiting Action) 1 ea N/A QS [place] Stop: 12/29/20 07:59 Last Admin: 11/30/20 07:56 Dose: 1 ea Documented by: Miscellaneous Information (Piperacill/Tazobac Consult Active) 1 ea N/A UD PRN PRN Reason: Consult Stop: 12/29/20 09:07 Morphine Sulfate (Morphine Sulfate 2 Mg/Ml Carp) 2 mg IV Q3H PRN PRN Reason: Pain Stop: 12/13/20 01:59 Ondansetron HCl (Ondansetron Inj 2 Mg/Ml 2 Ml Vial) 4 mg IV ONCE PRN PRN Reason: PACU Use Only-Nausea/Vomiting Stop: 11/30/20 16:34 Oxycodone HCl (Oxycodone Hcl Ir 5 Mg Tab (Immediate Release)) 5 mg PO Q4H PRN PRN Reason: Pain Stop: 12/13/20 01:59 Last Admin: 11/29/20 02:14 Dose: 5 mg Documented by: Phenylephrine HCl (Phenylephrine 100mcg/Ml 5ml Syr) 100 mcg IV Q5M PRN PRN Reason: PACU Use Only-SBP<90 or HR>70 Stop: 11/30/20 16:34 Tamsulosin HCl (Tamsulosin Hcl 0.4 Mg Cap) 0.4 mg PO QPM [place] Stop: 12/29/20 20:59 Last Admin: 11/29/20 20:21 Dose: 0.4 mg Documented by: Zinc Acetate/Diphenhydramine (Diphenhydramine 2%/Zinc 0.1% Cream 28gm Tube) 1 appln EXT QID PRN PRN Reason: itchy skin Stop: 12/30/20 04:01 Last Admin: 11/30/20 05:03 Dose: 1 appln Documented by:
[2020-11-30] MEDS ORDERED: INDOMETHACIN 50 MG SUPP PR ONE (10:32)
[2020-11-30] MEDS ORDERED: PROPOFOL IV EMULSION 10 MG/ML 20 ML VIAL IV ONE (11:02)
[2020-11-30] MEDS ORDERED: ONDANSETRON INJ 2 MG/ML 2 ML VIAL ONE (11:02)
[2020-11-30] MEDS ORDERED: DEXAMETHASONE SOD INJ 4 MG/ML VIAL ONE (11:02)
[2020-11-30] MEDS ORDERED: ROCURONIUM BROMIDE 10 MG/ML 5 ML VIAL IV ONE (11:02)
[2020-11-30] MEDS ORDERED: LIDOCAINE 2% 2 ML VIAL/AMP(20MG/ML) INFIL ONE (11:02)
[2020-11-30] MEDS ORDERED: SUCCINYLCHOLINE CHLORIDE 20 MG/ML 10 ML VIAL IV ONE (11:02)
--- NOTE | 2020-11-30 11:50 | Operative Report ---
Post Operative Report Pre & Post Diagnosis Operation Date: 11/30/20 10:00 Pre-Op Diagnosis: Choledocholithiasias, Acute upper abdominal pain Post-Op Diagnosis: Choledocholithiasias, Acute upper abdominal pain I identified the patient and participated in the time-out.: Yes Procedure Operation Date: 11/30/20 10:00 Actual Procedures p Endoscopic Retrograde Cholangiopancreatography(Not Applicable) - Ok Carranza MD Surgeon Ok Carranza MD Detailer None Estimated Blood Loss 0 Findings See Below (Cholangitis and stones) Specimens None Description of Procedure ERCP I attest to the content of the Intraoperative Record and any orders documented therein. Any exceptions are noted below.
--- NOTE | 2020-11-30 12:08 | Fluoroscopy Report ---
[place] ERCP biliary ductal CLINICAL HISTORY: Stent placement. COMPARISON STUDY: Abdomen and pelvis CT 11/28/2020. FLUOROSCOPY TIME: 1 minute and 21 seconds. FINDINGS: 9 fluoroscopic spot images of the right upper quadrant were submitted. The ampulla was alla ulated and contrast was injected into the distended common bile duct. Filling defects within the comm on bile duct likely representing stones. A balloon sweep was performed. This is all by placement of a common bile duct stent which appears in good position. Prior cholecystectomy. IMPRESSION: Fluoroscopy provided for ERCP as described above. ACT 112: Negative or not required by law. Electronically signed by: Jeff Zhu M.D. 11/30/2020 12:06 PM
[2020-11-30] MEDS ORDERED: PHENYLEPHRINE 100MCG/ML 5ML SYR ONE (12:18)
--- NOTE | 2020-11-30 12:23 | Anesthesiology Progress Note ---
Date of Service November 30, 2020 Anesthesia Post Procedure Vital Signs Vital Signs: Temp Pulse Pulse Resp BP BP Pulse Ox 11/30/20 12:15 54 L 16 155/72 H 97 11/30/20 12:05 69 16 132/94 94 11/30/20 11:58 36.4 C L 78 16 121/71 92 11/30/20 07:29 36.8 C 53 L 16 131/64 92 11/29/20 22:34 36.6 C 80 12 95/60 L 93 11/29/20 17:02 36.7 C 67 16 106/62 92 Pain Intensity Back: Pain Intensity: 2 Transfer of Care Handoff Completed per policy Notes Mental Status: alert / awake / arousable Patient Amnestic to Procedure: Yes Nausea / Vomiting: adequately controlled Pain: adequately controlled Airway Patency, RR, SpO2: stable & adequate BP & HR: stable & adequate Hydration State: stable & adequate Anesthetic Complications: no major complications apparent and Pt Satisfied with anesthetic care Notes: The patient is awake and comfortable. His vital signs are stable. A piece of Coban wrap was removed from his right arm which caused an abrasion. This abrasion was covered with Optifoam.
--- NOTE | 2020-11-30 13:26 | GI REPORT ---
Patient Name: Kole Melo Procedure Date: 11/30/2020 10:01 AM Date of : 1935 Admit Type: Inpatient Age: 85 Gender: Male Attending MD: Ok Carranza MD Procedure: ERCP Providers: Ok Carranza MD Referring MD: Evan Barksdale Md Indications: Bile duct stone on Computed Tomogram Scan, For therapy of ascending cholangitis Medicines: General Anesthesia Complications: No immediate complications. Estimated Blood Loss: Estimated blood loss: none. Procedure: Pre-Anesthesia Assessment: - Prior to the procedure, a History and Physical was performed, and patient medications, allergies and sensitivities were reviewed. The patient's tolerance of previous anesthesia was reviewed. - The risks and benefits of the procedure and the sedation options and risks were discussed with the patient. All questions were answered and informed consent was obtained. - Patient identification and proposed procedure were verified prior to the procedure by the physician and the nurse. The procedure was verified in the procedure room. - Pre-procedure physical examination revealed no contraindications to sedation. After obtaining informed consent, the scope was passed under direct vision. Throughout the procedure, the patient's blood pressure, pulse, and oxygen saturations were monitored continuously. The scope was introduced through the mouth, and advanced to the duodenum and used to inject contrast into the bile duct. The ERCP was accomplished without difficulty. The patient tolerated the procedure well. Findings: A flight test shop mechanic film of the abdomen was obtained. Surgical clips, consistent with a previous cholecystectomy, were seen in the area of the right upper quadrant of the abdomen. The esophagus was successfully intubated under direct vision. The scope was advanced to a normal major papilla in the descending duodenum without detailed examination of the pharynx, larynx and associated structures, and upper GI tract. The upper GI tract was grossly normal except for a mild benign appearing stenosis at the duodenal sweep, this had been biopsied last year and path showed duodinitis. A TTS dilator was passed through the scope. Dilation with a 12-13.5-15 mm balloon dilator was performed in the duodenum. The major papilla was located entirely within a diverticulum. A biliary sphincterotomy had been performed. The sphincterotomy appeared open. A 0.035 inch straight standard wire was passed into the biliary tree. The 8.5 mm balloon was passed over the guidewire and the bile duct was then deeply cannulated. Contrast was injected. I personally interpreted the bile duct images. Ductal flow of contrast was adequate. Image quality was adequate. Contrast extended to the main bile duct. The main bile duct was dilated. The largest diameter was 14 mm. The lower third of the main bile duct contained filling defect(s) thought to be a stone. Bile duct orifice was successfully dilated with a 12 mm balloon dilator. The biliary tree was swept with a 15 mm balloon starting at the bifurcation. Sludge was swept from the duct. Many stones were removed. No stones remained. Pus was swept from the duct. One 10 Fr by 4 cm plastic biliary stent with a single external pigtail and a single internal pigtail was placed into the common bile duct. Bile flowed through the stent. The stent was in good position. Indomethacin 100 mg was given via suppository to decrease the risk of post-ERCP pancreatitis (PEP). PD was not cannulated. Impression: - Benign appearing, recurrent mild stenosis in the duodenal sweep, balloon dilation up to 15 mm performed to facilitate passed of the duodenoscope. - The major papilla was located entirely within a diverticulum. - Ascending cholangitis was found. - Choledocholithiasis was found. Complete removal was accomplished by balloon dilation sphincteroplasty and balloon extraction. - One plastic biliary stent was placed into the common bile duct. Recommendation: - [facility]. - Complete a 7 days course of ABx. - Repeat EGD/ERCP in 4 - 6 weeks to remove the stent. - Clear liquids today. - Recall GI if needed. Ok Carranza MD 11/30/2020 1:25:49 PM This report has been signed electronically. Note Initiated On: 11/30/2020 10:01 AM Number of Addenda: 0 I attest to the content of the Intraoperative Record and orders documented therein, exceptions below {[id number]}
[2020-11-30] MEDS: TAMSULOSIN HCL 0.4 MG CAP PO SCH (22:13)
[2020-12-01] MEDS: LACTATED RINGER'S 1,000 ML IV SCH (01:40)
[2020-12-01] MEDS: PIPERACILLIN/TAZOBACTAM 3.375 GM in DEXTROSE 5% 100 ML IV SCH ×2 (06:30→14:15)
[2020-12-01 07:15] LABS: Hematocrit (blood only) 39.7 % (42-52); Hemoglobin 14.1 g/dL (14.0-18.0); Mean Corpuscular Hgb Conc 35.5 g/dL (32-36); Mean Platelet Volume 9.4 fL (7.4-10.4); Platelet Count 154 K/uL (130-400); RDW Coefficient of Variation 12.9 % (11.5-14.5); RDW Standard Deviation 43.4 fL (36.4-46.3); Red Blood Count 4.27 M/uL (4.7-6.1); White Blood Count 7.95 K/uL (4.8-10.8)
[2020-12-01 07:47] LABS: Albumin Level 2.6 gm/dl (3.4-5.0); BUN Creatinine Ratio 17.9 (10-20); Calcium 8.6 mg/dl (8.5-10.1); Creatinine Clr Calc Pharmacy 87.4 ml/min; Est GFR (African American) 103.5 ml/min; Est GFR (Non-African American) 89.3 ml/min; Potassium 3.7 mmol/L (3.5-5.1)
[2020-12-01 07:50] LABS: Albumin Globulin Ratio 0.8 (0.9-2); Bilirubin,Total 1.8 mg/dl (0.2-1); Globulin 3.2 gm/dl (2.5-4.0); Total Protein 5.8 gm/dl (6.4-8.2)
[2020-12-01] MEDS: ENOXAPARIN INJ 30 MG/0.3 ML SYR SQ SCH (08:24)
[2020-12-01] MEDS ORDERED: metroNIDAZOLE 500 MG TAB PO STA (16:04)
[2020-12-01] MEDS ORDERED: CIPROFLOXACIN 500 MG TAB PO STA (16:04)
--- NOTE | 2020-12-01 16:20 | Discharge Summary ---
Date of Service December 01, 2020 Admission HPI Per Admitting Provider History obtained from patient and records. Medical history significant for hypertension, BPH, past tobacco/alcohol abuse as per records, history choledocholithiasis, history of pancreatitis, history of pulmonary nodule. Recent confinement August 2023 gallstone pancreatitis/choledocholithiasis. Patient underwent ERCP with subsequent duodenal stricture dilatation, sphincterotomy, and balloon extraction of CBD stone Patient experienced achy epigastric pain with nausea reminiscent of gallstone attack after dinner with dessert ice cream last night. No chest pain, no cough, no S OB, no fever, no chills. Patient denies recent EtOH intake. Patient consulted ER for evaluation. Medical History as above CT chest March 2020 showed 9 mm nodule right lower lobe. Recommend CT follow-up in 9 to 12 months. Patient yet to go for outpatient Pulmonology referral. 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 Admission Exam Per Admitting Provider GENERAL: Slightly uncomfortable, slightly anxious, no respiratory distress SKIN: Normal color, warm HEENT: [place] palpebral conjunctivae, no ptosis, dry buccal mucosa NECK : Supple, no tenderness CHEST : Decreased breath sounds, no tenderness HEART : RRR, no obvious murmurs ABDOMEN: Some distention, minimal epigastric tenderness EXTREMITIES : No LE swelling/tenderness, no other conspicuous deformities noted NEUROLOGIC : Coherent, no facial asymmetry, mild hearing impairment, no other gross focality Principal Diagnosis Choledocholithiasis: Ascending cholangitis Discharge Exam General: A&Ox3 HENT: NCAT, MMM, EOMI Eyes: PERRLA Neck: Supple, normal range of motion CVS: normal rate and rhythm Resp: b/l good breath sounds Abdomen: Soft, ND/NT, +BS Extremities: No c/c/e Neuro: face symmetric, strength grossly equal, no focal deficit Skin: warm and dry, no rashes/lesions/errythema MSK: normal ROM, no joint swelling/erythema Discharge Data Allergies Allergy/AdvReac Type Severity Reaction Status Date / Time hydrochlorothiazide Allergy Severe PANCREATITI Verified 11/28/20 23:08 S meloxicam Allergy Mild RASH Verified 11/28/20 23:08 gabapentin AdvReac Severe Fainting Verified 11/28/20 23:08 Consultations 11/29/20 14:57 Consult Gastroenterology Routine Procedures Performed Operation Date: 11/30/20 10:00 Actual Procedures p Endoscopic Retrograde Cholangiopancreatography(Not Applicable) - Ok Carranza MD Ordered Studies 11/28/20 22:38 CT abd pelvis wo con Stat 11/30/20 10:00 [place] ERCP biliary ductal Routine Hospital Course (1) Choledocholithiasis: Ascending cholangitis Patient underwent ERCP. Was started on Zosyn prior to admission and was transitioned to Cipro/Flagyl prior to discharge. Benign-appearing recurrent mild stenosis, in the duodenal sweep, balloon dilatation up to 15 mm performed to facilitate passage of the to the scope. Major papilla was located entirely within diverticulum. Ascending cholangitis was found. Choledocholithiasis was found. Complete removal was accomplished by balloon dilation sphincteroplasty and balloon extraction. One plastic biliary stent was placed into the common bile duct. On the day of discharge patient was doing okay. Tolerated diet. Hemodynamically was doing fine. Patient was discharged in stable condition. Chronic problems: Hypertension, stable, currently not on maintenance medications SPN possible malignancy on updated CT Outpatient Pulmonary consultation for SPN work-up Hyperglycemia rule out DM Check hemoglobin A1c BPH, stable on regimen past tobacco/alcohol abuse as per records Total Time Total Time Spent Total Time Spent (In Minutes): 35 Discharge Plan Discharge Items Patient Disposition: Home - Self-Care Reason For Visit: ABD PAIN Discharge Diagnosis: Choledocholithiasis: Ascending cholangitis Activity: Resume your previous activity Non-emergency contact: Primary Care Provider Call non-emergency contact if: your symptoms worsen and your pain is not controlled Follow-up/Referrals: Iván Sethi, [Primary Care Provider] - Diet: Heart Healthy Addtl Attending Provider Instructions: Follow-up with your primary care physician within 1 week. You will need to have repeat liver function tests at your appointment with your primary care physician. Follow-up with gastroenterology as an outpatient 4 to 6 weeks for repeat EGD/ERCP. You were found to have a pulmonary nodule. Will need to be seen by lung doctor as an outpatient to assess for malignancy. Pending Studies at Discharge: Yes Stand-Alone Forms: [employer], Smoking Cessation Medications and DC Order Prescriptions: New ciprofloxacin HCl 500 mg tablet 500 mg PO BID 5 Days Qty: 10 RF: 0 metronidazole [Flagyl] 500 mg tablet 500 mg PO Q8H 5 Days Qty: 15 RF: 0 Continued tamsulosin 0.4 mg Capsule 0.4 mg PO QPM RF: 0 dutasteride 0.5 mg Capsule 0.5 mg PO QPM RF: 0 Discharge Orders: Discharge Order (Routine); Ordered 12/01/20 Ordered By: Charleen Salcedo Admission Data Admit Date/Time: 11/29/20 17:05 Attending Provider: Charleen Salcedo Admit Provider: Jimmy Duval Primary Care Provider: Iván Sethi Other Providers: Tobias Odell Other Interventions: Discharge Summary Assessment (RN) Last Done: 12/01/20 16:51
== END 2020-12-01 17:39 | disposition home or self-care (01) | DRG 445 ==
LOC: ED 21:42 → 3W 21:42 → SUATTDRO 11-29 17:05

== ENCOUNTER 2021-04-20 00:16 | Observation (INO) ==
[2021-04-20] MEDS ORDERED: SODIUM CHLORIDE 0.9% 500 ML IV SCH (00:45)
--- NOTE | 2021-04-20 01:01 | Emergency Department Note ---
History of Present Illness General Chief complaint: GI Bleed Stated complaint: GI BLEED Time Seen by Provider: 04/20/21 00:26 History of Present Illness Provider Complaint: + gross hematochezia Onset (ago): 3 hour(s) Maximum Pain Intensity: 0 Current Pain Intensity: 0 Relieved By: + none Exacerbated By: + bowel movement Context: + liver disease and + alcohol abuse; no swallowed FB, no rectal trauma or no anticoagulant use Associated symptoms: no abdominal pain, no nausea, no vomiting, no epistaxis, no fever, no chills, no headaches, no easy bruising, no shortness of breath, no syncope or no weakness Home Medications Medication Instructions Recorded Confirmed Type tamsulosin 0.4 mg capsule 0.4 mg PO QPM 11/11/18 11/28/20 History dutasteride 0.5 mg capsule 0.5 mg PO QPM 08/09/19 11/28/20 History Allergies Allergy/AdvReac Type Severity Reaction Status Date / Time hydrochlorothiazide Allergy Severe PANCREATITI Verified 11/28/20 23:08 S meloxicam Allergy Mild RASH Verified 11/28/20 23:08 gabapentin AdvReac Severe Fainting Verified 11/28/20 23:08 Past Med/Surg History Medical History (Updated 04/20/21 @ 02:28 by Dragan Montaño) BPH (benign prostatic hyperplasia) DDD (degenerative disc disease) History of hypertension controlled since weight loss Osteoarthritis Spinal stenosis B/L LE radiculopathy Surgical History History of appendectomy History of carpal tunnel surgery RIGHT HAND History of colonoscopy History of tonsillectomy and adenoidectomy Hx of hernia repair RIGHT INGUINAL Hx of toe surgery HAD TOENAIL REMOVED IN OFFICE 12/2018 Hx of tonsillectomy Previous back surgery Family History Mother Liver cancer Social History Smoking Status: Former smoker (QUIT BEFORE 1989, SMOKED APPROXIMATELY 30-40 YEARS) Tobacco Type: Cigarettes Cigarettes Per Day: 10; Second Hand Exposure: No; Hx Alcohol Use: No Hx Substance Use: No Preferred Language: Turkish Communication Ability: Effective Visual Impairment: No Limitations Clerical And Office Support Workers Required: No Beliefs That Will Affect Care: None marital status: Current Living Situation: Spouse Current Living Situation Comment: 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 HE IS TRYING TO FIND SOMEONE Feels Safe at Home: Yes Assistive Devices: None Review of Systems A total of 10 systems reviewed and were otherwise negative Physical Exam Vital Signs: Vital Signs - 24 hr 04/20/21 00:36 04/20/21 00:46 04/20/21 01:20 Temperature 36.5 C Temperature Source Oral Pulse Rate 73 Pulse Rate [Apical ] 68 Respiratory Rate 16 16 Respiratory Effort / Characteristics Non-Labored Sponta neous Non-Labored Sponta neous Respiratory Depth Normal Normal Blood Pressure 122/77 Blood Pressure [Ri ght Arm] 128/74 Blood Pressure Susan n 92 Blood Pressure Susan n [Right Arm] 92 Blood Pressure Pos ition [Right Arm] Lying Pulse Oximetry 96 98 95 Oxygen Delivery Me thod Room Air Room Air Room Air Sepsis Recent Feve r Within 48 Hours No Sepsis New/Unexpla ined Change in Men jennifer Status No Sepsis Action Take n by Nursing No Action Required Physical Exam: Physical Exam GENERAL: He is oriented to person, place, and time. He appears well-developed and well-nourished. He does not appear distressed. HENT: Exam performed. - Head: Normocephalic and atraumatic. - Right Ear: External ear normal. No mastoid tenderness. - Left Ear: External ear normal. No mastoid tenderness. - Mouth/Throat: The oropharynx is clear and moist. No trismus in the jaw. No dental abscesses or uvula swelling. No oropharyngeal exudate or tonsillar abscesses. EYES: Conjunctivae and EOM are normal. Pupils are equal, round, and reactive to light. Right eye exhibits no discharge. Left eye exhibits no discharge. No scleral icterus. NECK: Normal range of motion. Neck supple. No JVD present. No spinous process tenderness present. No carotid bruit present. No rigidity. No tracheal deviation and normal range of motion present. No Brudzinski's sign and no Kernig's sign noted. CV: Normal rate, regular rhythm, normal heart sounds and intact distal pulses. There is no peripheral edema. Palpable radial pulses bue. PULM/CHEST: Effort normal and breath sounds normal. No respiratory distress. No stridor. He has no wheezes. He has no rales. - Chest Wall: He exhibits no tenderness. ABD: The abdomen is soft. Bowel sounds are normal. He has no distension. No mass is present. There is no tenderness. There is no rebound, no guarding, no Grewal's sign and no tenderness at McBurney's point. Rovsig negative. Rectal: Bright red blood per rectum MUSC/SKEL: Normal range of motion. There is no peripheral edema, tenderness or d eformity. LYMPH: No cervical adenopathy. NEURO: He is alert and oriented to person, place, and time. He has normal strength. No cranial nerve deficit or sensory deficit. Coordination and gait normal. GCS eye subscore is 4. GCS verbal subscore is 5. GCS motor subscore is 6. Cerebellar tests wnl. SKIN: Skin is warm and dry. He is not diaphoretic. PSYCH: He has a normal mood and affect. Behavior is normal. Judgment and thought content normal. Course Course 0026: The patient was evaluated in room A10. A complete history and physical exam was performed Cardiac monitoring: An order was placed for continuous cardiac monitoring. The monitor shows a rate of 70 with sinus rhythm 0227: Vital signs stable. Labs within normal limits. [id number]. Repeat physical exam showed no pain on palpation of the abdomen. Patient states he does not feel comfortable going home and he is afraid he will continue to bleed. [facility] will be [facility]. Administered Medications Sodium Chloride (Nss) 500 mls @ 125 mls/hr IV .Q4H LOUIS Stop: 05/20/21 00:44 Last Admin: 04/20/21 01:19 Dose: 125 mls/hr Documented by: [id number] Medical Decision Making Laboratory Data Result diagrams: 04/20/21 00:29 04/20/21 00:29 Lab Results 04/20/21 04/20/21 04/20/21 Range/Units 00:29 00:29 00:29 WBC 6.73 (4.8-10.8) K/uL RBC 4.63 L (4.7-6.1) M/uL Hgb 14.4 (14.0-18.0) g/dL Hct 41.8 L (42-52) % MCV 90.3 (80-100) fL MCH 31.1 (25-34) pg MCHC 34.4 (32-36) g/dL RDW Std Deviation 45.2 (36.4-46.3) fL RDW Coeff of Jocelyn 13.7 (11.5-14.5) % Plt Count 237 (130-400) K/uL MPV 10.0 (7.4-10.4) fL Immature Gran % (Auto) 0.3 % Neut % (Auto) 66.9 % Lymph % (Auto) 18.3 % Dickinson % (Auto) 8.2 % Eos % (Auto) 5.1 % Baso % (Auto) 1.2 % Neut # (Auto) 4.51 (1.4-6.5) K/uL Lymph # (Auto) 1.23 (1.2-3.4) K/uL Dickinson # (Auto) 0.55 (0.11-0.59) K/uL Eos # (Auto) 0.34 (0-0.5) K/uL Baso # (Auto) 0.08 (0-0.2) K/uL Immature Gran # (Auto) 0.02 (0.00-0.02) K/uL PT 10.4 (9.0-12.0) Seconds INR 1.0 (0.9-1.1) APTT 30.6 (21.0-31.0) Seconds PTT Ratio 1.2 Sodium 140 (136-145) mmol/L Potassium 4.3 (3.5-5.1) mmol/L Chloride 109 H (98-107) mmol/L Carbon Dioxide 25 (21-32) mmol/L Anion Gap 6.0 (3-11) BUN 20 H (7-18) mg/dl Creatinine 0.78 (0.6-1.4) mg/dl Est Cr Clr Drug Dosing 72.8 ml/min Est GFR ( Amer) 96.1 ml/min Est GFR (Non-Af Amer) 82.9 ml/min BUN/Creatinine Ratio 26.1 H (10-20) Glucose 105 H (70-99) mg/dl Calcium 9.5 (8.5-10.1) mg/dl Total Bilirubin 0.6 (0.2-1) mg/dl Direct Bilirubin < 0.1 (0-0.2) mg/dl AST 24 (15-37) U/L ALT 20 (12-78) U/L Alkaline Phosphatase 85 (45-117) U/L Total Protein 6.9 (6.4-8.2) gm/dl Albumin 3.3 L (3.4-5.0) gm/dl Lipase 156 (73-393) U/L Specimen Hemolysis ECG Data Indication: other (GIB) Rate (beats per minute): 72 Rhythm: normal sinus Findings: + RBBB; no ST depression, no ST elevation or no prolonged QT Additional Comments: SD 118 QRS 122 QTC 488 MDM Narrative 0026: The patient was evaluated in room A10. A complete history and physical exam was performed Cardiac monitoring: An order was placed for continuous cardiac monitoring. The monitor shows a rate of 70 with sinus rhythm 0227: Vital signs stable. Labs within normal limits. [id number]. Repeat physical exam showed no pain on palpation of the abdomen. Patient states he does not feel comfortable going home and he is afraid he will continue to bleed. Patient will be admitted for observation to the [facility] hospitalist team. Dr. Regan will be notified. Impression & Plan Acute GI bleeding Discharge Plan Visit Data Chief Complaint: GI Bleed Stated Complaint: GI BLEED ED Provider: Dragan Montaño Discharge Problem: Acute GI bleeding Patient Disposition: Being Evaluated by Hospitalist Forms Stand Alone Forms: [facility] Prescriptions Prescriptions: No Action tamsulosin 0.4 mg Capsule 0.4 mg PO QPM RF: 0 dutasteride 0.5 mg Capsule 0.5 mg PO QPM RF: 0 Referrals Referrals: Iván Sethi DO [Physician] -
[2021-04-20 01:02] LABS: Basophils # (auto) 0.08 K/uL (0-0.2); Basophils % (auto) 1.2 %; Eosinophils # (auto) 0.34 K/uL (0-0.5); Eosinophils % (auto) 5.1 %; Hematocrit (blood only) 41.8 % (42-52); Hemoglobin 14.4 g/dL (14.0-18.0); Immature Granulocytes # (auto) 0.02 K/uL (0.00-0.02); Immature Granulocytes % (auto) 0.3 %; Lymphocytes # (auto) 1.23 K/uL (1.2-3.4); Lymphocytes % (auto) 18.3 %; Mean Corpuscular Hemoglobin 31.1 pg (25-34); Mean Corpuscular Hgb Conc 34.4 g/dL (32-36); Mean Corpuscular Volume 90.3 fL (80-100); Monocytes # (auto) 0.55 K/uL (0.11-0.59); Monocytes % (auto) 8.2 %; Neutrophils # (auto) 4.51 K/uL (1.4-6.5); Neutrophils % (auto) 66.9 %; Platelet Count 237 K/uL (130-400); RDW Coefficient of Variation 13.7 % (11.5-14.5); RDW Standard Deviation 45.2 fL (36.4-46.3); Red Blood Count 4.63 M/uL (4.7-6.1); White Blood Count 6.73 K/uL (4.8-10.8)
[2021-04-20 01:11] LABS: Partial Thromboplastin Ratio 1.2; Partial Thromboplastin Time 30.6 Seconds (21.0-31.0); Prothrombin Time 10.4 Seconds (9.0-12.0)
[2021-04-20 01:14] LABS: Alanine Aminotransferase 20 U/L (12-78); Albumin Level 3.3 gm/dl (3.4-5.0); Aspartate Aminotransferase 24 U/L (15-37); BUN Creatinine Ratio 26.1 (10-20); Bilirubin Direct < 0.1 mg/dl (0-0.2); Blood Urea Nitrogen 20 mg/dl (7-18); Calcium 9.5 mg/dl (8.5-10.1); Carbon Dioxide 25 mmol/L (21-32); Chloride 109 mmol/L (98-107); Creatinine Clr Calc Pharmacy 72.8 ml/min; Est GFR (African American) 96.1 ml/min; Est GFR (Non-African American) 82.9 ml/min; Glucose 105 mg/dl (70-99); Lipase 156 U/L (73-393); Potassium 4.3 mmol/L (3.5-5.1); Sodium 140 mmol/L (136-145)
[2021-04-20 01:27] LABS: Alkaline Phosphatase 85 U/L (45-117); Bilirubin,Total 0.6 mg/dl (0.2-1); Total Protein 6.9 gm/dl (6.4-8.2)
[2021-04-20] MEDS ORDERED: MoRPHine SULFATE 4 MG/ML 1 ML CARP\\VIAL IV PRN (03:15)
[2021-04-20] MEDS ORDERED: LACTATED RINGER'S 1,000 ML IV SCH (03:15)
[2021-04-20 03:29] LABS: Magnesium 2.2 mg/dl (1.8-2.4)
[2021-04-20] MEDS ORDERED: OPTIRAY 320 100ml IV ONE (03:50)
--- NOTE | 2021-04-20 04:36 | History & Physical Report ---
Date of Service April 20, 2021 Assessment & Plan (1) Diverticulitis: Plan: With bleeding Patient currently hemodynamically stable. hypertension, stable, not on maintenance medications SPN possible malignancy, [facility] pulmonology following patient BPH, stable on regimen past tobacco/alcohol abuse as per records Medical telemetry Clear liquids for now Zosyn Serial H&H, transfuse PRBC if hemoglobin less than 7 and or for symptomatic anemia GI consult RE diverticulitis with bleeding DVT prophylaxis SCDs Re: L GIB Full code Text document was generated using [employer] voice recognition software. It may contain grammatical or spelling errors. Kindly contact undersigned for clarification of any documentation item in question. Admission and Anticipated Discharge Date Admission Date: April 20, 2021 History of Present Illness Chief Complaint: Bloody diarrhea Primary Care Provider: Ollie Wagner PA-C History obtained from patient and records. Medical history significant for COPD, hypertension, BPH, past tobacco/alcohol ab use as per records, history choledocholithiasis, history of pancreatitis, history of pulmonary nodule. Last confinement November 2020 for ascending cholangitis status post ERCP and antibiotic Rx. Patient seen at PCPs office about 3 weeks ago. Complaining of low back/hip pain. Patient later prescribed naproxen twice daily for lumbar degenerative disc disease. Minimal improvement of back pain as per patient. Patient was watching television last night when he noted achy epigastric discomfort followed by bloody diarrhea. No nausea, no emesis no fever, no chills, no prior episodes. Patient brought by daughter to ER for evaluation. Medical History as above 2019 EGD showed LA grade a reflux esophagitis. Gastritis. Duodenal stenosis. Duodenal diverticulum. 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 Allergies Allergy/AdvReac Type Severity Reaction Status Date / Time hydrochlorothiazide Allergy Severe PANCREATITI Verified 04/20/21 03:03 S meloxicam Allergy Mild RASH Verified 04/20/21 03:03 gabapentin AdvReac Severe Fainting Verified 04/20/21 03:03 Home Medications Medication Instructions Recorded Confirmed Type tamsulosin 0.4 mg capsule 0.4 mg PO QPM 0504/19 10/11/21 History dutasteride 0.5 mg capsule 0.5 mg PO QPM 08/09/19 04/20/21 History diphenhydramine 25 2 tab PO HS PRN 04/20/21 04/20/21 History mg-acetaminophen 500 mg tablet (Tylenol PM Extra Strength) naproxen 375 mg tablet,delayed 375 mg PO BID 04/20/21 04/20/21 History release Past Med/Surg History Medical History (Updated 04/20/21 @ 05:52 by Jimmy Duval MD) BPH (benign prostatic hyperplasia) DDD (degenerative disc disease) History of hypertension controlled since weight loss Osteoarthritis Spinal stenosis B/L LE radiculopathy Surgical History History of appendectomy History of carpal tunnel surgery RIGHT HAND History of colonoscopy History of tonsillectomy and adenoidectomy Hx of hernia repair RIGHT INGUINAL Hx of toe surgery HAD TOENAIL REMOVED IN OFFICE 12/2018 Hx of tonsillectomy Previous back surgery Family History Mother Liver cancer Social History Smoking Status: Never smoker Tobacco Type: Cigarettes Cigarettes Per Day: 10; Second Hand Exposure: No; Hx Alcohol Use: No Hx Substance Use: No Preferred Language: Hungarian Communication Ability: Effective Visual Impairment: No Limitations [employer] Band Director Required: No Beliefs That Will Affect Care: None marital status: Current Living Situation: Spouse Current Living Situation Comment: 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 HE IS TRYING TO FIND SOMEONE Other Information That Helps Us Care for You: No Feels Safe at Home: Yes Assistive Devices: Cane Review of Systems Review of Systems: As per HPI, all 10 systems reviewed, all other ROS negative Physical Exam Physical Exam: GENERAL: Slightly uncomfortable, slightly anxious, no respiratory distress SKIN: Pallor, warm HEENT: Astatula palpebral conjunctivae, no ptosis, dry buccal mucosa NECK : Supple, no tenderness CHEST : Decreased breath sounds, no tenderness HEART : RRR, no obvious murmurs ABDOMEN: Some distention, minimal epigastric tenderness EXTREMITIES : No LE swelling/tenderness, no other conspicuous deformities noted NEUROLOGIC : Coherent, no facial asymmetry, mild hearing impairment, no other gross focality Results & Data Results & Data ([facility]) Vital Signs (Past 12 Hours) Vital Signs Temp Pulse Pulse Resp BP BP Pulse Ox 04/20/21 01:20 68 16 128/74 95 04/20/21 00:46 98 04/20/21 00:36 36.5 C 73 16 122/77 96 Laboratory Results Laboratory Results WBC 6.73 K/uL (4.8-10.8) 04/20/21 00:29 RBC 4.63 M/uL (4.7-6.1) L 04/20/21 00:29 Hgb 14.4 g/dL (14.0-18.0) 04/20/21 00:29 Hct 41.8 % (42-52) L 04/20/21 00:29 MCV 90.3 fL (80-100) 04/20/21 00:29 MCH 31.1 pg (25-34) 04/20/21 00: MCHC 34.4 g/dL (32-36) 04/20/21 00:29 RDW Std Deviation 45.2 fL (36.4-46.3) 04/20/21 00:29 RDW Coeff of Jocelyn 13.7 % (11.5-14.5) 04/20/21 00: Plt Count 237 K/uL (130-400) 04/20/21 00:29 MPV 10.0 fL (7.4-10.4) 04/20/21 00:29 Immature Gran % (Auto) 0.3 % 04/20/21 00: Neut % (Auto) 66.9 % 04/20/21 00:29 Lymph % (Auto) 18.3 % 04/20/21 00:29 Baxter % (Auto) 8.2 % 04/20/21 00:29 Eos % (Auto) 5.1 % 04/20/21 00:29 Baso % (Auto) 1.2 % 04/20/21 00:29 Neut # (Auto) 4.51 K/uL (1.4-6.5) 04/20/21 00:29 Lymph # (Auto) 1.23 K/uL (1.2-3.4) 04/20/21 00:29 Baxter # (Auto) 0.55 K/uL (0.11-0.59) 04/20/21 00:29 Eos # (Auto) 0.34 K/uL (0-0.5) 04/20/21 00:29 Baso # (Auto) 0.08 K/uL (0-0.2) 04/20/21 00:29 Immature Gran # (Auto) 0.02 K/uL (0.00-0.02) 04/20/21 00: PT 10.4 Seconds (9.0-12.0) 04/20/21 00: INR 1.0 (0.9-1.1) 04/20/21: APTT 30.6 Seconds (21.0-31.0) 04/20/21: PTT Ratio 1.2 04/20/21 00: Sodium 140 mmol/L (136-145) 04/20/21 00:29 Potassium 4.3 mmol/L (3.5-5.1) 04/20/21 00: Chloride 109 mmol/L (98-107) H 04/20/21 00: Carbon Dioxide 25 mmol/L (21-32) 04/20/21 00:29 Anion Gap 6.0 (3-11) 04/20/21 00:29 BUN 20 mg/dl (7-18) H 04/20/21 00:29 Creatinine 0.78 mg/dl (0.6-1.4) 04/20/21 00:29 Est Cr Clr Drug Dosing 72.8 ml/min 04/20/21 00:29 Est GFR ( Amer) 96.1 ml/min 04/20/21 00:29 Est GFR (Non-Af Amer) 82.9 ml/min 04/20/21 00:29 BUN/Creatinine Ratio 26.1 (10-20) H 04/20/21 00: Glucose 105 mg/dl (70-99) H 04/20/21 00:29 Calcium 9.5 mg/dl (8.5-10.1) 04/20/21 00: Magnesium 2.2 mg/dl (1.8-2.4) 04/20/21 00:29 Total Bilirubin 0.6 mg/dl (0.2-1) 04/20/21 00:29 Direct Bilirubin < 0.1 mg/dl (0-0.2) 04/20/21 00:29 AST 24 U/L (15-37) 04/20/21 00:29 ALT 20 U/L (12-78) 04/20/21 00:29 Alkaline Phosphatase 85 U/L (45-117) 04/20/21 00:29 Total Protein 6.9 gm/dl (6.4-8.2) 04/20/21 00:29 Albumin 3.3 gm/dl (3.4-5.0) L 04/20/21 00:29 Lipase 156 U/L (73-393) 04/20/21 00:29 Specimen Hemolysis 04/20/21 00:29 COVID-19 Eval Order Covid19 at [facility] 04/20/21 02:25 SARS-CoV-2 (PCR) NEGATIVE (Negative) 04/20/21 02:[address] abdomen pelvis initial read: Colonic diverticulosis greatest in the distal left and sigmoid colon. Wall thickening with mild surrounding infiltration involving the mid sigmoid colon consistent with acute diverticulitis. Minimal free fluid. No definite free intraperitoneal gas or formed abscess. No bowel obstruction or ileus. Redemonstrated small hiatal hernia. Liver is normal size. Gallbladder has been removed. Interval increase in intrahe patic biliaryductal gas consistent with prior surgery. No definite biliaryductal dilation. No evidence for acute pancreatitis.. Spleen is unremarkable. No obstructive uropathy. Kidneys are unremarkable. Urinarybladder is unchanged. Small calcification within the gallbladder. Prominent prostate gland.. No abdominal aortic aneurysm. Atherosclerotic vascular calcifications. Spine degenerative changes. Unchanged 10 x 9 mmnoncalcified nodule in the right lower lobe. EKG as per my interpretation: Rate 70, NSR, LAD, LAFB, RBBB, multiple artifacts Code Status & VTE Plan VTE Prophylaxis Plan VTE Prophylaxis will be ordered: Yes
[2021-04-20] MEDS ORDERED: ACETAMINOPHEN 325 MG TAB PO PRN (04:55)
[2021-04-20] MEDS ORDERED: PROMETHAZINE HCL 12.5 MG in SODIUM CHLORIDE 0.9% 50 ML IV PRN (04:55)
[2021-04-20] MEDS ORDERED: PIPERACILLIN/TAZOBACTAM 4.5 GM/120 ML BAG IV ONE (05:28)
[2021-04-20] MEDS ORDERED: PIPERACILL/TAZOBAC CONSULT ACTIVE PRN (05:28)
[2021-04-20] MEDS ORDERED: LACTATED RINGER'S 1,000 ML IV STA (05:35)
[2021-04-20] MEDS ORDERED: PIPERACILLIN/TAZOBACTAM 3.375 GM in DEXTROSE 5% 100 ML IV STA (05:36)
[2021-04-20 06:08] LABS: Hematocrit (blood only) 35.5 % (42-52); Hemoglobin 12.1 g/dL (14.0-18.0)
--- NOTE | 2021-04-20 08:56 | Gastrointestinal Consultation ---
Date of Consultation April 20, 2021 Assessment & Plan (1) Diverticulitis: 85 year old male admitted w/ pain, rectal bleeding x 1 day, awaiting offical CT read but concern for diverticulitis - Await CT - Trend H&H - Monitor and document BMs - Check stool culture, c.diff - Continue ABX for now - LFTs and lipase WNL, await CT results Thank you for allowing us to participate in the care of this patient. Please call with any acute changes, questions or concerns. Please see addendum below with additional recommendation from my supervising physician. Supervising Physician Co-Signing Physician Notes I have seen and examined the patient with ISMAEL Wakefield whose note reflects our findings and plan. CT wihtout evidence of diverticulitis. Diverticulosis noted. WOuld be sure to obtain stool testing. on abx. Follow clinically. COnservative mgt. History of Present Illness Reason for Consultation: abd pain Requesting Physician: Víctor Attending Physician: Royal Renee MD History of Present Illness 85 year old female with history of COPD, hypertension, BPH, past tobacco/alcohol abuse as per records, history choledocholithiasis admitted w/ lower abd pain and rectal bleeding x 1 day. Denies nausea, vomiting. Denies constipation/diarrhea. Denies fever, chills. No new medications. No recent ABX. CTAP: awaiting offical read Allergies Allergy/AdvReac Type Severity Reaction Status Date / Time hydrochlorothiazide Allergy Severe PANCREATITI Verified 04/20/21 03:03 S meloxicam Allergy Mild RASH Verified 04/20/21 03:03 gabapentin AdvReac Severe Fainting Verified 04/20/21 03:03 Home Medications Medication Instructions Recorded Confirmed Type tamsulosin 0.4 mg capsule 0.4 mg PO QPM 11/11/18 04/20/21 History dutasteride 0.5 mg capsule 0.5 mg PO QPM 08/09/19 04/20/21 History diphenhydramine 25 2 tab PO HS PRN 04/20/21 04/20/21 History mg-acetaminophen 500 mg tablet (Tylenol PM Extra Strength) naproxen 375 mg tablet,delayed 375 mg PO BID 04/20/21 04/20/21 History release Patient History Medical History (Updated 04/20/21 @ 05:52 by Jimmy Duval MD) BPH (benign prostatic hyperplasia) DDD (degenerative disc disease) History of hypertension controlled since weight loss Osteoarthritis Spinal stenosis B/L LE radiculopathy Surgical History History of appendectomy History of carpal tunnel surgery RIGHT HAND History of colonoscopy History of tonsillectomy and adenoidectomy Hx of hernia repair RIGHT INGUINAL Hx of toe surgery HAD TOENAIL REMOVED IN OFFICE 12/2018 Hx of tonsillectomy Previous back surgery Family History Mother Liver cancer Social History Smoking Status: Never smoker Tobacco Type: Cigarettes Cigarettes Per Day: 10; Second Hand Exposure: No; Hx Alcohol Use: No Hx Substance Use: No Preferred Language: Guyanese Communication Ability: Effective Visual Impairment: No Limitations Stock Replenisher Required: No Beliefs That Will Affect Care: None marital status: Current Living Situation: Spouse Current Living Situation Comment: 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 HE IS TRYING TO FIND SOMEONE Other Information That Helps Us Care for You: No Feels Safe at Home: Yes Assistive Devices: None Review of Systems Review of Systems: All systems reviewed & are unremarkable except as noted in HPI & below Physical Exam Constitutional: WD/WN, vitals as above Neck: trachea midline, no thyromegaly Respiratory: normal respiratory effort, lungs clear to auscultation Cardiovascular: RRR, no murmur, no edema Gastrointestinal (Abdomen): Inspection/Auscultation: normal bowel sounds Percussion/Palpation: + abdomen tender and abdomen soft Skin: no rashes, warm and dry Results & Data ([facility]) Vital Signs (Past 12 Hours) Vital Signs Temp Pulse Pulse Resp BP BP Pulse Ox 04/20/21 08:00 36.6 C 73 65 18 124/75 97 04/20/21 05:03 69 20 119/62 97 04/20/21 04:55 69 16 119/62 96 04/20/21 04:52 64 20 96/66 L 94 04/20/21 04:00 66 21 128/68 99 04/20/21 03:00 70 20 126/79 96 04/20/21 01:30 67 18 113/66 95 04/20/21 01:20 68 16 128/74 95 04/20/21 00:46 98 04/20/21 00:36 36.5 C 73 16 122/77 96 Pulse Ox 04/20/21 08:00 97 04/20/21 05:03 04/20/21 04:55 96 04/20/21 04:52 04/20/21 04:00 04/20/21 03:00 04/20/21 01:30 04/20/21 01:20 04/20/21 00:46 04/20/21 00:36 Laboratory Results 04/20/21 04/20/21 04/20/21 Range/Units 06:02 06:02 06:02 WBC (4.8-10.8) K/uL RBC (4.7-6.1) M/uL Hgb 12.1 L (14.0-18.0) g/dL Hct 35.5 L (42-52) % MCV (80-100) fL MCH (25-34) pg MCHC (32-36) g/dL RDW Std Deviation (36.4-46.3) fL RDW Coeff of Jocelyn (11.5-14.5) % Plt Count (130-400) K/uL MPV (7.4-10.4) fL Immature Gran % (Auto) % Neut % (Auto) % Lymph % (Auto) % [place] % (Auto) % Eos % (Auto) % Baso % (Auto) % Neut # (Auto) (1.4-6.5) K/uL Lymph # (Auto) (1.2-3.4) K/uL [place] # (Auto) (0.11-0.59) K/uL Eos # (Auto) (0-0.5) K/uL Baso # (Auto) (0-0.2) K/uL Immature Gran # (Auto) (0.00-0.02) K/uL PT (9.0-12.0) Seconds INR (0.9-1.1) APTT (21.0-31.0) Seconds PTT Ratio Sodium (136-145) mmol/L Potassium (3.5-5.1) mmol/L Chloride (98-107) mmol/L Carbon Dioxide (21-32) mmol/L Anion Gap (3-11) BUN (7-18) mg/dl Creatinine (0.6-1.4) mg/dl Est Cr Clr Drug Dosing ml/min Est GFR ( Amer) ml/min Est GFR (Non-Af Amer) ml/min BUN/Creatinine Ratio (10-20) Glucose (70-99) mg/dl Lactate 1.0 (0.4-2.0) mmol/L Calcium (8.5-10.1) mg/dl Magnesium (1.8-2.4) mg/dl Total Bilirubin (0.2-1) mg/dl Direct Bilirubin (0-0.2) mg/dl AST (15-37) U/L ALT (12-78) U/L Alkaline Phosphatase (45-117) U/L Total Protein (6.4-8.2) gm/dl Albumin (3.4-5.0) gm/dl Lipase (73-393) U/L Specimen Hemolysis COVID-19 Eval Order SARS-CoV-2 (PCR) (Negative) Blood Type O Positive Antibody Screen NEGATIVE 04/20/21 04/20/21 04/20/21 Range/Units 02:25 02:25 00:29 WBC (4.8-10.8) K/uL RBC (4.7-6.1) M/uL Hgb (14.0-18.0) g/dL Hct (42-52) % MCV (80-100) fL MCH (25-34) pg MCHC (32-36) g/dL RDW Std Deviation (36.4-46.3) fL RDW Coeff of Jocelyn (11.5-14.5) % Plt Count (130-400) K/uL MPV (7.4-10.4) fL Immature Gran % (Auto) % Neut % (Auto) % Lymph % (Auto) % [place] % (Auto) % Eos % (Auto) % Baso % (Auto) % Neut # (Auto) (1.4-6.5) K/uL Lymph # (Auto) (1.2-3.4) K/uL [place] # (Auto) (0.11-0.59) K/uL Eos # (Auto) (0-0.5) K/uL Baso # (Auto) (0-0.2) K/uL Immature Gran # (Auto) (0.00-0.02) K/uL PT (9.0-12.0) Seconds INR (0.9-1.1) APTT (21.0-31.0) Seconds PTT Ratio Sodium 140 (136-145) mmol/L Potassium 4.3 (3.5-5.1) mmol/L Chloride 109 H (98-107) mmol/L Carbon Dioxide 25 (21-32) mmol/L Anion Gap 6.0 (3-11) BUN 20 H (7-18) mg/dl Creatinine 0.78 (0.6-1.4) mg/dl Est Cr Clr Drug Dosing 72.8 ml/min Est GFR ( Amer) 96.1 ml/min Est GFR (Non-Af Amer) 82.9 ml/min BUN/Creatinine Ratio 26.1 H (10-20) Glucose 105 H (70-99) mg/dl Lactate (0.4-2.0) mmol/L Calcium 9.5 (8.5-10.1) mg/dl Magnesium 2.2 (1.8-2.4) mg/dl Total Bilirubin 0.6 (0.2-1) mg/dl Direct Bilirubin < 0.1 (0-0.2) mg/dl AST 24 (15-37) U/L ALT 20 (12-78) U/L Alkaline Phosphatase 85 (45-117) U/L Total Protein 6.9 (6.4-8.2) gm/dl Albumin 3.3 L (3.4-5.0) gm/dl Lipase 156 (73-393) U/L Specimen Hemolysis COVID-19 Eval Order Covid19 at [facility] SARS-CoV-2 (PCR) NEGATIVE (Negative) Blood Type Antibody Screen 04/20/21 04/20/21 Range/Units 00:29 00:29 WBC 6.73 (4.8-10.8) K/uL RBC 4.63 L (4.7-6.1) M/uL Hgb 14.4 (14.0-18.0) g/dL Hct 41.8 L (42-52) % MCV 90.3 (80-100) fL MCH 31.1 (25-34) pg MCHC 34.4 (32-36) g/dL RDW Std Deviation 45.2 (36.4-46.3) fL RDW Coeff of Jocelyn 13.7 (11.5-14.5) % Plt Count 237 (130-400) K/uL MPV 10.0 (7.4-10.4) fL Immature Gran % (Auto) 0.3 % Neut % (Auto) 66.9 % Lymph % (Auto) 18.3 % [place] % (Auto) 8.2 % Eos % (Auto) 5.1 % Baso % (Auto) 1.2 % Neut # (Auto) 4.51 (1.4-6.5) K/uL Lymph # (Auto) 1.23 (1.2-3.4) K/uL [place] # (Auto) 0.55 (0.11-0.59) K/uL Eos # (Auto) 0.34 (0-0.5) K/uL Baso # (Auto) 0.08 (0-0.2) K/uL Immature Gran # (Auto) 0.02 (0.00-0.02) K/uL PT 10.4 (9.0-12.0) Seconds INR 1.0 (0.9-1.1) APTT 30.6 (21.0-31.0) Seconds PTT Ratio 1.2 Sodium (136-145) mmol/L Potassium (3.5-5.1) mmol/L Chloride (98-107) mmol/L Carbon Dioxide (21-32) mmol/L Anion Gap (3-11) BUN (7-18) mg/dl Creatinine (0.6-1.4) mg/dl Est Cr Clr Drug Dosing ml/min Est GFR ( Amer) ml/min Est GFR (Non-Af Amer) ml/min BUN/Creatinine Ratio (10-20) Glucose (70-99) mg/dl Lactate (0.4-2.0) mmol/L Calcium (8.5-10.1) mg/dl Magnesium (1.8-2.4) mg/dl Total Bilirubin (0.2-1) mg/dl Direct Bilirubin (0-0.2) mg/dl AST (15-37) U/L ALT (12-78) U/L Alkaline Phosphatase (45-117) U/L Total Protein (6.4-8.2) gm/dl Albumin (3.4-5.0) gm/dl Lipase (73-393) U/L Specimen Hemolysis COVID-19 Eval Order SARS-CoV-2 (PCR) (Negative) Blood Type Antibody Screen
--- NOTE | 2021-04-20 09:35 | CT Scan Report ---
CT SCAN OF THE ABDOMEN AND PELVIS WITH IV CONTRAST CLINICAL HISTORY: Generalized abdominal pain. COMPARISON STUDY: Abdominal CT dated 11/28/2020 end 11/11/2018. TECHNIQUE: Following the IV administration of 94 cc of Optiray 320, CT scan of the abdomen and pelvi s is performed from the lung bases to the proximal femora. Images are reviewed in the axial, sagittal , and coronal planes. IV contrast was administered without complication. A dose lowering technique wa s utilized adhering to the principles of ALARA. CT DOSE: 401.92 mGy.cm FINDINGS: Lung bases: The heart is normal in size and without pericardial effusion. The coronary arteries are d ensely calcified. A small hiatal hernia is observed. 11 mm calcification containing nodule in the rig ht lower lobe is unchanged The lung bases are otherwise clear noting bibasilar scarring/atelectasis. Liver: The contrast-enhanced liver is normal in size, contour, and attenuation. There is no intrahepa tic biliary ductal dilatation. The hepatic veins and portal veins are patent. Pneumobilia is seen thr oughout the left lobe. Gallbladder: Surgically absent noting clips in the gallbladder fossa. Spleen: Normal in size and attenuation. Pancreas: Unremarkable. Adrenal glands: A 17 mm right adrenal nodule is unchanged dating back to 2019. The left adrenal gland is normal in appearance. Kidneys: The contrast enhanced kidneys demonstrate cortical atrophy and are without hydronephrosis. T he kidneys enhance symmetrically. Scattered subcentimeter cortical hypodensities likely represent cys ts but are too small for definitive characterization. Abdominal vasculature: There is advanced atherosclerotic calcification and mild ectasia of the abdomi nal aorta. Bowel: There is advanced colonic diverticulosis without CT evidence of acute diverticulitis. No bowel obstruction is seen. There are small duodenal diverticula. The appendix is not identified and repor fatmata surgically absent. Peritoneum: There is no intraperitoneal free air or abdominal ascites. Lymphadenopathy: None. Pelvic viscera: The prostate gland is enlarged and heterogeneous noting median lobe hypertrophy. The bladder wall appears mildly thickened and trabeculated suggesting chronic outlet obstruction. There a re numerous tiny bladder calculi. A fat-containing inguinal hernia is seen on the left. Skeletal structures: The skeletal structures are osteopenic. Spondylotic and postoperative change is noted in the lumbosacral spine. There is mild scoliosis. Degenerative change is also noted in the sac roiliac joints. No lytic or blastic lesions are seen. IMPRESSION: 1. There are no acute infectious or inflammatory findings in the abdomen or pelvis. 2. Advanced colonic diverticulosis without CT evidence of acute diverticulitis. 3. There are small bladder calculi. 4. Additional findings as above. ACT 112: Negative or not required by law. Electronically signed by: Javid Mendoza M.D. 04/20/2021 9:33 AM
[2021-04-20] MEDS: AVODART~ORDER AWAITING ACTION SCH ×2 (09:55→15:32)
[2021-04-20] MEDS: PIPERACILLIN/TAZOBACTAM 3.375 GM in DEXTROSE 5% 100 ML IV SCH ×2 (10:00→18:12)
[2021-04-20 12:49] LABS: Hematocrit (blood only) 34.9 % (42-52); Hemoglobin 12.1 g/dL (14.0-18.0)
--- NOTE | 2021-04-20 14:21 | Electrocardiogram Report ---
Test Reason : Blood Pressure : / mmHG Vent. Rate : 072 BPM Atrial Rate : 072 BPM P-R Int : 118 ms QRS Dur : 122 ms QT Int : 446 ms P-R-T Axes : 048 -42 051 degrees QTc Int : 488 ms Poor data quality, interpretation may be adversely affected Normal sinus rhythm with sinus arrhythmia Left axis deviation Right bundle branch block Abnormal ECG When compared with ECG of 28-NOV-2020 21:51, Right bundle branch block is now Present Confirmed by Chandu Torres ([id number]) on 04/20/2021 2:21:01 PM Referred By: REFERRED SELF Confirmed By:Chandu Torres
[2021-04-20 17:00] LABS: Hematocrit (blood only) 34.4 % (42-52); Hemoglobin 11.6 g/dL (14.0-18.0)
[2021-04-20] MEDS ORDERED: TAMSULOSIN HCL 0.4 MG CAP PO SCH (21:00)
[2021-04-21] MEDS: PIPERACILLIN/TAZOBACTAM 3.375 GM in DEXTROSE 5% 100 ML IV SCH ×2 (02:35→07:52)
[2021-04-21] MEDS: AVODART~ORDER AWAITING ACTION SCH ×3 (02:43→11:58)
[2021-04-21 07:47] LABS: Basophils # (auto) 0.06 K/uL (0-0.2); Basophils % (auto) 0.9 %; Eosinophils # (auto) 0.37 K/uL (0-0.5); Eosinophils % (auto) 5.8 %; Hematocrit (blood only) 33.9 % (42-52); Hemoglobin 11.8 g/dL (14.0-18.0); Immature Granulocytes # (auto) 0.01 K/uL (0.00-0.02); Immature Granulocytes % (auto) 0.2 %; Lymphocytes % (auto) 17.2 %; Mean Corpuscular Hemoglobin 31.2 pg (25-34); Mean Corpuscular Hgb Conc 34.8 g/dL (32-36); Mean Corpuscular Volume 89.7 fL (80-100); Mean Platelet Volume 9.2 fL (7.4-10.4); Monocytes % (auto) 9.4 %; Neutrophils # (auto) 4.27 K/uL (1.4-6.5); Neutrophils % (auto) 66.5 %; Platelet Count 221 K/uL (130-400); RDW Coefficient of Variation 13.9 % (11.5-14.5); RDW Standard Deviation 44.9 fL (36.4-46.3); Red Blood Count 3.78 M/uL (4.7-6.1); White Blood Count 6.41 K/uL (4.8-10.8)
[2021-04-21 08:13] LABS: BUN Creatinine Ratio 13.9 (10-20); Calcium 9.1 mg/dl (8.5-10.1); Est GFR (African American) 95.6 ml/min; Est GFR (Non-African American) 82.5 ml/min; Potassium 3.8 mmol/L (3.5-5.1)
--- NOTE | 2021-04-21 09:04 | Gastroenterology Progress Note ---
Date of Service April 21, 2021 Assessment & Plan (1) Acute GI bleeding: Plan: 85 year old male admitted w/ rectal bleeding, abd pain. Pain has since resolved, blood is less frequent, decreased in volume. HGB remained stable. CTAP w/o evidence of diverticulitis. negative c diff, culture pending. Suspect diverticular hemorrhage. Continue conservative management Await stool culture Trend HGB Document bowels Consider dietary advancement today Can discontinue ABX from GI standpoint Recall GI as needed. Would await dietary advancement and resolution of bleeding before DC home. OP GI clinic appt. Thank you for allowing us to participate in the care of this patient. Please call with any acute changes, questions or concerns. Please see addendum below with additional recommendation from my supervising physician. Admission and Anticipated Discharge Date Admission Date: April 20, 2021 Subjective Pt was seen and evaluated chart reviewed. Notes he is feeling well this AM. No ABD pain. Last BM overnight was large, loose with less blood. No lightheadedness, dizziness, CP, SOB. Review of Systems Review of Systems: All systems reviewed & are unremarkable except as noted in HPI & below Physical Exam Constitutional: WD/WN, vitals as above Neck: trachea midline, no thyromegaly Respiratory: normal respiratory effort, lungs clear to auscultation Cardiovascular: RRR, no murmur, no edema Gastrointestinal (Abdomen): normal bowel sounds, soft, nontender, no hepato splenomegaly Skin: no rashes, warm and dry Results & Data ([place]) Vital Signs (Past 12 Hours) Vital Signs Temp Pulse Pulse Resp BP Pulse Ox 04/21/21 08:08 36.6 C 63 18 144/75 H 94 04/21/21 07:20 59 L 04/21/21 06:32 63 04/21/21 04:18 36.4 C L 59 L 18 132/65 95 04/20/21 23:32 36.8 C 58 L 18 148/80 H 98 Laboratory Results 04/21/21 04/21/21 04/20/21 Range/Units 07:30 07:30 16:44 WBC 6.41 (4.8-10.8) K/uL RBC 3.78 L (4.7-6.1) M/uL Hgb 11.8 L 11.6 L (14.0-18.0) g/dL Hct 33.9 L 34.4 L (42-52) % MCV 89.7 (80-100) fL MCH 31.2 (25-34) pg MCHC 34.8 (32-36) g/dL RDW Std Deviation 44.9 (36.4-46.3) fL RDW Coeff of Jocelyn 13.9 (11.5-14.5) % Plt Count 221 (130-400) K/uL MPV 9.2 (7.4-10.4) fL Immature Gran % (Auto) 0.2 % Neut % (Auto) 66.5 % Lymph % (Auto) 17.2 % [place] % (Auto) 9.4 % Eos % (Auto) 5.8 % Baso % (Auto) 0.9 % Neut # (Auto) 4.27 (1.4-6.5) K/uL Lymph # (Auto) 1.10 L (1.2-3.4) K/uL [place] # (Auto) 0.60 H (0.11-0.59) K/uL Eos # (Auto) 0.37 (0-0.5) K/uL Baso # (Auto) 0.06 (0-0.2) K/uL Immature Gran # (Auto) 0.01 (0.00-0.02) K/uL Sodium 143 (136-145) mmol/L Potassium 3.8 (3.5-5.1) mmol/L Chloride 110 H (98-107) mmol/L Carbon Dioxide 26 (21-32) mmol/L Anion Gap 6.0 (3-11) BUN 11 (7-18) mg/dl Creatinine 0.79 (0.6-1.4) mg/dl Est Cr Clr Drug Dosing 67.0 ml/min Est GFR ( Amer) 95.6 ml/min Est GFR (Non-Af Amer) 82.5 ml/min BUN/Creatinine Ratio 13.9 (10-20) Glucose 87 (70-99) mg/dl Calcium 9.1 (8.5-10.1) mg/dl Stl C. diff Tox B Gene (Neg) 04/20/21 04/20/21 Range/Units 16:15 12:34 WBC (4.8-10.8) K/uL RBC (4.7-6.1) M/uL Hgb 12.1 L (14.0-18.0) g/dL Hct 34.9 L (42-52) % MCV (80-100) fL MCH (25-34) pg MCHC (32-36) g/dL RDW Std Deviation (36.4-46.3) fL RDW Coeff of Jocelyn (11.5-14.5) % Plt Count (130-400) K/uL MPV (7.4-10.4) fL Immature Gran % (Auto) % Neut % (Auto) % Lymph % (Auto) % [place] % (Auto) % Eos % (Auto) % Baso % (Auto) % Neut # (Auto) (1.4-6.5) K/uL Lymph # (Auto) (1.2-3.4) K/uL [place] # (Auto) (0.11-0.59) K/uL Eos # (Auto) (0-0.5) K/uL Baso # (Auto) (0-0.2) K/uL Immature Gran # (Auto) (0.00-0.02) K/uL Sodium (136-145) mmol/L Potassium (3.5-5.1) mmol/L Chloride (98-107) mmol/L Carbon Dioxide (21-32) mmol/L Anion Gap (3-11) BUN (7-18) mg/dl Creatinine (0.6-1.4) mg/dl Est Cr Clr Drug Dosing ml/min Est GFR ( Amer) ml/min Est GFR (Non-Af Amer) ml/min BUN/Creatinine Ratio (10-20) Glucose (70-99) mg/dl Calcium (8.5-10.1) mg/dl Stl C. diff Tox B Gene Negative Cdiff Gene (Neg)
--- NOTE | 2021-04-21 15:42 | Hospitalist Progress Note ---
Date of Service April 21, 2021 Assessment & Plan (1) Acute GI bleeding: (2) Diverticulosis: Plan: Anemia Present on admission with epigastric discomfort followed by bloody bowel movement Possible related to NSAID (he was prescribed with naproxen for his arthritis) CT of the abdomen and pelvis showed no acute no acute infectious or inflammatory findings in the abdomen or pelvis. Advanced colonic diverticulosis without CT evidence of acute diverticulitis. Gastro on board Hemoglobin has been stable at 11.8 Diet advance as tolerated IV antibiotic Zosyn discontinued Patient is very anxious to leave the hospital today Discussed with him to spend the night that we can monitor his hemoglobin I spoke to GI and GI wanted him to spend the night to make sure no episode of rebleeding He got very upset and said that he wants to be discharged now I offered to call his or kids that they can talk to him to stay, he said that he does not want me to call any of his family GI was notified and plan to follow him as an outpatient Patient was advised if bleeding recurs to seek medical attention Patient was advised to avoid any NSAID such as (Motrin, Aleve, naproxen, ibuprofen, Advil,...) BPH Continue Flomax DVT prophylaxis SCD due to GI bleed Disposition Will discharge home today since pt refused to stay for another night By CMS guidelines, a determination that the admission or continued stay is not medically necessary has been made by a member of the UR committee and a physician for this hospital stay, therefore a Code 44 will be completed and the Inpatient admission will be changed to outpatient. , Admission and Anticipated Discharge Date Admission Date: April 20, 2021 Subjective Pt was seen and examined Lying in bd with no acute distress Pt said that he feels fine He is very anxious to go home I spoke to GI and wanted him to spend the night to make sure no episode of rebleeding He said no that he wants to be discharge now Denies any chest pain, palpitation, dizziness and SOB Review of Systems Review of Systems: All systems reviewed & are unremarkable except as noted in Subjective Physical Exam Physical Exam: General- No acute distress Head- atraumatic Eyes- PERRL, EOMI, ENT- oropharynx clear Neck- supple, no JVD Lungs- clear to auscultation Heart- regular rhythm; no murmur Abdomen- normal bowel sounds, soft, nontender Extremities- no calf tenderness Neuro- alert, oriented x 3; PERRL, EOMI; no facial palsy; no dysarthria Skin- warm & dry Results & Data Results & Data ([facility]) Vital Signs (Past 12 Hours) Vital Signs Temp Pulse Pulse Resp BP Pulse Ox 04/21/21 15:12 57 L 04/21/21 15:03 36.4 C L 55 L 18 103/63 93 04/21/21 11:31 36.5 C 55 L 18 128/70 94 04/21/21 08:08 36.6 C 63 18 144/75 H 94 04/21/21 07:20 59 L 04/21/21 06:32 63 04/21/21 04:18 36.4 C L 59 L 18 132/65 95
--- NOTE | 2021-04-21 16:03 | Communication Note ---
Date of Service: April 21, 2021 By CMS guidelines, a determination that the admission or continued stay is not medically necessary has been made by a member of the Utilization Review co mmittee and a physician for this hospital stay. Therefore, a Code 44 will be completed and the inpatient admission will be changed to outpatient. DO Braulio
--- NOTE | 2021-04-21 16:09 | Communication Note ---
Date of Service: April 20, 2021 Late entry Pt was seen on 04/20 in the ER. Patient was seen and examined for follow-up of GI bleed. He was seen in the ER lying in bed with no acute distress. Said that he feels much better and stool seem to get better. Hemoglobin 11.[address] abdomen and pelvics showed no acute infectious or inflammatory findings in the abdomen or pelvis. Advanced colonic diverticulosis without CT evidence of acute diverticulitis. Currently on IV antibiotic with IV Zosyn. Will consider to discontinue antibiotic since there is no clear source of infection. Continue clear liquid diet. Continue monitor H&H and transfuse if hemoglobin less than 7. GI on board. Continue monitor closely. MD Víctor
--- NOTE | 2021-04-26 10:06 | Discharge Summary ---
Date of Service April 21, 2021 Admission HPI Per Admitting Provider History obtained from patient and records. Medical history significant for COPD, hypertension, BPH, past tobacco/alcohol abuse as per records, history choledocholithiasis, history of pancreatitis, history of pulmonary nodule. Last confinement November 2020 for ascending cholangitis status post ERCP and antibiotic Rx. Patient seen at PCPs office about 3 weeks ago. Complaining of low back/hip pain. Patient later prescribed naproxen twice daily for lumbar degenerative disc disease. Minimal improvement of back pain as per patient. Patient was watching television last night when he noted achy epigastric discomfort followed by bloody diarrhea. No nausea, no emesis no fever, no chills, no prior episodes. Patient brought by daughter to ER for evaluation. Medical History as above 2019 EGD showed LA grade a reflux esophagitis. Gastritis. Duodenal stenosis. Duodenal diverticulum. 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 Admission Exam Per Admitting Provider GENERAL: Slightly uncomfortable, slightly anxious, no respiratory distress SKIN: Pallor, warm HEENT: [place] palpebral conjunctivae, no ptosis, dry buccal mucosa NECK : Supple, no tenderness CHEST : Decreased breath sounds, no tenderness HEART : RRR, no obvious murmurs ABDOMEN: Some distention, minimal epigastric tenderness EXTREMITIES : No LE swelling/tenderness, no other conspicuous deformities noted NEUROLOGIC : Coherent, no facial asymmetry, mild hearing impairment, no other gross focality Principal Diagnosis Acute GI bleeding Diverticulosis BPH Discharge Exam General- No acute distress Head- atraumatic Eyes- PERRL, EOMI, ENT- oropharynx clear Neck- supple, no JVD Lungs- clear to auscultation Heart- regular rhythm; no murmur Abdomen- normal bowel sounds, soft, nontender Extremities- no calf tenderness Neuro- alert, oriented x 3; PERRL, EOMI; no facial palsy; no dysarthria Skin- warm & dry Discharge Data Allergies Allergy/AdvReac Type Severity Reaction Status Date / Time hydrochlorothiazide Allergy Severe PANCREATITI Verified 04/24/21 12:34 S meloxicam Allergy Mild RASH Verified 04/24/21 12:34 gabapentin AdvReac Severe Fainting Verified 04/24/21 12:34 Consultations 04/20/21 02:22 ED Decision to Admit Stat 04/20/21 04:55 Consult Gastroenterology Routine Ordered Studies 04/20/21 03:10 CT abd pelvis IV con only Urgent CT SCAN OF THE ABDOMEN AND PELVIS WITH IV CONTRAST CLINICAL HISTORY: Generalized abdominal pain. COMPARISON STUDY: Abdominal CT dated 11/28/2020 end 11/11/2018. TECHNIQUE: Following the IV administration of 94 cc of Optiray 320, CT scan of the abdomen and pelvis is performed from the lung bases to the proximal femora. Images are reviewed in the axial, sagittal, and coronal planes. IV contrast was administered without complication. A dose lowering technique was utilized adhering to the principles of ALARA. CT DOSE: 401.92 mGy.cm FINDINGS: Lung bases: The heart is normal in size and without pericardial effusion. The coronary arteries are densely calcified. A small hiatal hernia is observed. 11 mm calcification containing nodule in the right lower lobe is unchanged The lung bases are otherwise clear noting bibasilar scarring/atelectasis. Liver: The contrast-enhanced liver is normal in size, contour, and attenuation. There is no intrahepatic biliary ductal dilatation. The hepatic veins and portal veins are patent. Pneumobilia is seen throughout the left lobe. Gallbladder: Surgically absent noting clips in the gallbladder fossa. Spleen: Normal in size and attenuation. Pancreas: Unremarkable. Adrenal glands: A 17 mm right adrenal nodule is unchanged dating back to 2019. The left adrenal gland is normal in appearance. Kidneys: The contrast enhanced kidneys demonstrate cortical atrophy and are without hydronephrosis. The kidneys enhance symmetrically. Scattered subcentimeter cortical hypodensities likely represent cysts but are too small for definitive characterization. Abdominal vasculature: There is advanced atherosclerotic calcification and mild ectasia of the abdominal aorta. Bowel: There is advanced colonic diverticulosis without CT evidence of acute diverticulitis. No bowel obstruction is seen. There are small duodenal diverticula. The appendix is not identified and reported surgically absent. Peritoneum: There is no intraperitoneal free air or abdominal ascites. Lymphadenopathy: None. Pelvic viscera: The prostate gland is enlarged and heterogeneous noting median lobe hypertrophy. The bladder wall appears mildly thickened and trabeculated suggesting chronic outlet obstruction. There are numerous tiny bladder calculi. A fat-containing inguinal hernia is seen on the left. Skeletal structures: The skeletal structures are osteopenic. Spondylotic and postoperative change is noted in the lumbosacral spine. There is mild scoliosis. Degenerative change is also noted in the sacroiliac joints. No lytic or blastic lesions are seen. IMPRESSION: 1. There are no acute infectious or inflammatory findings in the abdomen or pelvis. 2. Advanced colonic diverticulosis without CT evidence of acute diverticulitis. 3. There are small bladder calculi. 4. Additional findings as above. ACT 112: Negative or not required by law. Electronically signed by: Javid Mendoza M.D. 04/20/2021 9:33 AM Dictated: 04/20/21924Transcribed: 04/20/21924 Hospital Course (1) Acute GI bleeding: (2) Diverticulosis: Anemia Present on admission with epigastric discomfort followed by bloody bowel movement Possible related to NSAID (he was prescribed with naproxen for his arthritis) CT of the abdomen and pelvis showed no acute no acute infectious or inflammatory findings in the abdomen or pelvis. Advanced colonic diverticulosis without CT evidence of acute diverticulitis. Gastro on board Hemoglobin has been stable at 11.8 Diet advance as tolerated IV antibiotic Zosyn discontinued Patient is very anxious to leave the hospital today Discussed with him to spend the night that we can monitor his hemoglobin I spoke to GI and GI wanted him to spend the night to make sure no episode of rebleeding He got very upset and said that he wants to be discharged now I offered to call his or kids that they can talk to him to stay, he said that he does not want me to call any of his family GI was notified and plan to follow him as an outpatient Patient was advised if bleeding recurs to seek medical attention Patient was advised to avoid any NSAID such as (Motrin, Aleve, naproxen, ibuprofen, Advil,...) BPH Continue Flomax DVT prophylaxis SCD due to GI bleed Disposition Will discharge home today since pt refused to stay for another night By CMS guidelines, a determination that the admission or continued stay is not medically necessary has been made by a member of the UR committee and a physician for this hospital stay, therefore a Code 44 will be completed and the Inpatient admission will be changed to outpatient. , Total Time Total Time Spent Total Time Spent (In Minutes): 35 minutes Discharge Plan Discharge Items Patient Disposition: Home - Self-Care Reason For Visit: LGIB Discharge Diagnosis: Acute GI bleeding Diverticulosis Activity: Resume your previous activity Non-emergency contact: Primary Care Provider Call non-emergency contact if: you have any medication questions Follow-up/Referrals: Ollie Wagner PA-C [Primary Care Provider] - (Date & Time 04/27/2021 12:00 PM Provider Chris Gayle MD Department General Internal Medicine [facility] ) Héctor Castle MD [Outside Practitioners] - (Date & Time 04/24/2021 1:40 PM Provider Héctor Castle MD Department Pulmonary Medicine, [facility] ) Diet: Low Fiber Addtl Attending Provider Instructions: Follow up with your primary care provider 04/27/2021 12:00 PM Provider Chris Gayle MD Department General Internal Medicine [facility] Follow up with your lung specialist 04/24/2021 1:40 PM Provider Héctor Castle MD Department Pulmonary Medicine, [facility] Follow up with gastroenterology ( office will call you for the appointment) Since you don't want to stay in the hospital for another night, please seek medical attention if bleeding reoccurs Avoid any NSAID such as motrin, aleve, advil, naproxen, ibuprofen for now Pending Studies at Discharge: No Stand-Alone Forms: My [facility], Smoking Cessation Medications and DC Order Prescriptions: Continued tamsulosin [Flomax] 0.4 mg Capsule 0.4 mg PO HS RF: 0 dutasteride [Avodart] 0.5 mg Capsule 0.5 mg PO HS RF: 0 Discontinued naproxen 375 mg tablet,delayed release (DR/EC) 375 mg PO BID RF: 0 No Action acetaminophen [Tylenol] 325 mg Tablet 325 mg PO QID PRN (Reason: Pain) RF: 0 fluticasone propionate 50 mcg/actuation spray,suspension 2 spray INTRANASAL DAILY PRN (Reason: Congestion) RF: 0 cholecalciferol (vitamin D3) [Vitamin D3] 50 mcg (2,000 unit) Capsule 50 mcg PO DAILY RF: 0 Discharge Orders: Discharge Order (Routine); Ordered 04/21/21 Ordered By: Royal Hoffman/Other Patient Handouts: Diverticulosis Diverticulitis Admission Data Admit Date/Time: 04/20/21 03:12 Attending Provider: Royal Renee Admit Provider: Jimmy Duval Primary Care Provider: Ollie Wagner Other Providers: Jimmy Duval ; Ana Greene ; Eli Crespo ; Libra Logan ; Juliet Palomares ; Raoul Mills ; Abdiel Ochoa ; Torri Carroll ; Kali Armenta ; Melanie Peraza ; Afua Desai ; Sneha Kimbrough ; Cata Bender ; Ok Carranza Other Interventions: Discharge Summary Assessment (RN) Last Done: 04/21/21 16:47
== END 2021-04-21 16:47 | disposition home or self-care (01) ==
LOC: ED 00:16 → EDINP 00:16 → 2N 16:10

== ENCOUNTER 2021-04-24 09:47 | Inpatient (IN) ==
[2021-04-24 10:35] LABS: Hematocrit (blood only) 30.2 % (42-52); Hemoglobin 10.2 g/dL (14.0-18.0); Mean Corpuscular Hemoglobin 31.3 pg (25-34); Mean Corpuscular Hgb Conc 33.8 g/dL (32-36); Mean Corpuscular Volume 92.6 fL (80-100); Mean Platelet Volume 8.8 fL (7.4-10.4); Platelet Count 208 K/uL (130-400); RDW Coefficient of Variation 14.1 % (11.5-14.5); RDW Standard Deviation 46.8 fL (36.4-46.3); Red Blood Count 3.26 M/uL (4.7-6.1); White Blood Count 6.44 K/uL (4.8-10.8)
[2021-04-24 10:46] LABS: INR 1.1 (0.9-1.1); Partial Thromboplastin Time 25.7 Seconds (21.0-31.0); Prothrombin Time 10.9 Seconds (9.0-12.0)
--- NOTE | 2021-04-24 10:47 | Emergency Department Note ---
Impression & Plan Lower gastrointestinal hemorrhage, Diverticulosis, Anemia ED Provider Note NAME: MARILUZ ANAYA AGE: 85 SEX: M : 1935 ARRIVES VIA: Ambulance INFORMANT: Patient, ED PROVIDER(S): Chandu Mckeon DO CHIEF COMPLAINT: Rectal bleeding HPI: The patient is an 85-year-old male who presented to the emergency department for an evaluation of rectal bleeding. The patient was seen in our facility recently for similar complaints. He was able to be discharged to home. The patient states he was doing well for about a week. He states today he started having some abdominal cramping and then noticed some dark stool. The patient states his stool is maroon-colored. He states he ate some spicy food last evening and thinks this is why this occurred. He denies having any chest pain. He said no difficulty breathing. He states he is having some generalized weakness and shortness of breath with exertion. He denies having any lower extremity cramping. The patient states he was in the emergency department and then admitted for the symptoms before. He had an entire work-up which included scoping and was found to have diverticulosis. This was felt to be the source of the bleeding. ROS: See above HPI for pertinent positives & negatives. A total of 10 systems reviewed and were otherwise negative. PAST MEDICAL HISTORY: See Below PAST SURGICAL HISTORY: See Below FAMILY HISTORY: See Below SOCIAL HISTORY: See Below HOME MEDICATIONS: See Below ALLERGIES: See Below VITALS: See Below PHYSICAL EXAMINATION: GENERAL: Patient is awake alert in no acute distress patient is resting comfortably and showing no signs of anxiety EYES: The conjunctivae are clear. The pupils are round and reactive. EARS, NOSE, MOUTH AND THROAT: The nose is without any evidence of any deformity. Mucous membranes are moist. Tongue is midline. NECK: The neck is nontender and supple. RESPIRATORY: Normal respiratory effort is noted there is no evidence of wheezing rhonchi or rales CARDIOVASCULAR: Regular rate and rhythm noted there no murmurs rubs or gallops normal S1 normal S2. GASTROINTESTINAL: The abdomen is soft and nondistended. Rectal exam revealed maroon-colored stool. MUSCULOSKELETAL/EXTREMITIES: There is no evidence of gross deformity full range of motion is noted in the hips and shoulders. SKIN: There is no obvious evidence of any rash. Trace pedal edema was noted bilaterally. NEUROLOGIC: Patient is awake alert and oriented x3. MEDICAL DECISION MAKING: The patient is an 85-year-old male who presented to emergency department for an evaluation of rectal bleeding. The patient was admitted to our facility recently with similar complaints. At that time the bleeding did seem to resolve spontaneously. The patient returns because of worsening symptoms. The patient did not have a physical exam consistent with an acute surgical abdomen. Given his age and comorbidities I discussed this case with the [facility]. They have agreed to evaluate the patient in the emergency department for further management and disposition. Triage Nursing notes reviewed. Prior medical records reviewed Vital Signs: reviewed and remarkable for no significant abnormalities Differential diagnosis: Diverticulosis, AVM, coagulopathy, colitis, inflammatory bowel disease, malignancy, Aleja-Masterson tear, esophagitis, peptic ulcer disease, variceal ble ed, gastritis, epistaxis, fissure, hemorrhoids, as well as other pathologies. ER treatment provided: See below Diagnostics interpreted by me: ECG: EKG was obtained in the emergency department. My interpretation is normal sinus rhythm at 68 bpm. Right bundle branch block pattern was noted. There is no ectopy. This was compared to a tracing from April 202020. No changes were noted. Cardiac Monitoring: An order was placed for continuous cardiac monitoring. The monitor shows a rate of 85 bpm with sinus rhythm. Laboratory studies: As stated above and show below. Imaging studies: See below Consultation(s): I discussed this case with Katey who is on-call for the [facility]. They will evaluate the patient in the emergency department. Past Med/Surg History Medical History (Updated 04/24/21 @ 14:44 by Chandu Mckeon DO) BPH (benign prostatic hyperplasia) DDD (degenerative disc disease) History of hypertension controlled since weight loss Osteoarthritis Spinal stenosis B/L LE radiculopathy Surgical History History of appendectomy History of carpal tunnel surgery RIGHT HAND History of colonoscopy History of tonsillectomy and adenoidectomy Hx of hernia repair RIGHT INGUINAL Hx of toe surgery HAD TOENAIL REMOVED IN OFFICE 12/2018 Hx of tonsillectomy Previous back surgery Family History Mother Liver cancer Social History Smoking Status: Former smoker Tobacco Type: Cigarettes Cigarettes Per Day: 10; Second Hand Exposure: No; Hx Alcohol Use: No Hx Substance Use: No Preferred Language: Polish Communication Ability: Effective Visual Impairment: No 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 HE IS TRYING TO FIND SOMEONE Feels Safe at Home: Yes Assistive Devices: Cane Allergies Allergies Allergy/AdvReac Type Severity Reaction Status Date / Time hydrochlorothiazide Allergy Severe PANCREATITI Verified 04/24/21 12:34 S meloxicam Allergy Mild RASH Verified 04/24/21 12:34 gabapentin AdvReac Severe Fainting Verified 04/24/21 12:34 Home Meds Home Medications Medication Instructions Recorded Confirmed tamsulosin 0.4 mg capsule (Flomax) 0.4 mg PO HS 11/11/18 04/24/21 dutasteride 0.5 mg capsule 0.5 mg PO HS 08/09/19 04/24/21 (Avodart) acetaminophen 325 mg tablet 325 mg PO QID PRN 04/24/21 04/24/21 (Tylenol) Results & Data (ED) Vital Signs Vital Signs - 24 hr 04/24/21 09:54 04/24/21 10:20 04/24/21 10:30 Temperature 36.8 C Temperature Source Oral Pulse Rate 75 68 67 Pulse Rate from SpO2 Sensor 69 68 Respiratory Rate 17 19 19 Respiratory Effort / Characteristics Non-Labored Spontaneous Respiratory Depth Normal Respiratory Pattern Regular Blood Pressure 101/62 105/67 105/67 Blood Pressure Mean 75 79 79 Blood Pressure Position Lying Pulse Oximetry 96 95 97 Oxygen Delivery Method Room Air Sepsis Recent Fever Within 48 Hours No Sepsis New/Unexplained Change in Mental Status N/A Sepsis Action Taken by Nursing No Action Required 04/24/21 11:00 04/24/21 11:30 04/24/21 12:00 Temperature Temperature Source Pulse Rate 67 72 63 Pulse Rate from SpO2 Sensor 67 65 Respiratory Rate 15 15 16 Respiratory Effort / Characteristics Respiratory Depth Respiratory Pattern Blood Pressure 112/62 119/64 116/66 Blood Pressure Mean 78 82 82 Blood Pressure Position Pulse Oximetry 95 96 94 Oxygen Delivery Method Sepsis Recent Fever Within 48 Hours Sepsis New/Unexplained Change in Mental Status Sepsis Action Taken by Nursing 04/24/21 12:30 04/24/21 12:50 04/24/21 13:00 Temperature Temperature Source Pulse Rate 68 68 65 Pulse Rate from SpO2 Sensor 68 65 Respiratory Rate 19 20 23 Respiratory Effort / Characteristics Respiratory Depth Respiratory Pattern Blood Pressure 117/61 117/64 Blood Pressure Mean 79 81 Blood Pressure Position Pulse Oximetry 97 96 Oxygen Delivery Method Sepsis Recent Fever Within 48 Hours Sepsis New/Unexplained Change in Mental Status Sepsis Action Taken by Nursing 04/24/21 13:10 Temperature Temperature Source Pulse Rate 85 Pulse Rate from SpO2 Sensor Respiratory Rate 16 Respiratory Effort / Characteristics Respiratory Depth Respiratory Pattern Blood Pressure Blood Pressure Mean Blood Pressure Position Pulse Oximetry Oxygen Delivery Method Sepsis Recent Fever Within 48 Hours Sepsis New/Unexplained Change in Mental Status Sepsis Action Taken by Snf Medications Current Medication List: was personally reviewed by me Laboratory Data Attestation: I reviewed the patient's lab results. Result diagrams: 04/24/21 10:25 04/24/21 10:25 Lab Results 04/24/21 04/24/21 04/24/21 Range/Units 10:25 10:25 10:25 WBC 6.44 (4.8-10.8) K/uL RBC 3.26 L (4.7-6.1) M/uL Hgb 10.2 L (14.0-18.0) g/dL Hct 30.2 L (42-52) % MCV 92.6 (80-100) fL MCH 31.3 (25-34) pg MCHC 33.8 (32-36) g/dL RDW Std Deviation 46.8 H (36.4-46.3) fL RDW Coeff of Jocelyn 14.1 (11.5-14.5) % Plt Count 208 (130-400) K/uL MPV 8.8 (7.4-10.4) fL PT 10.9 (9.0-12.0) Seconds INR 1.1 (0.9-1.1) APTT 25.7 (21.0-31.0) Seconds PTT Ratio 1.0 Sodium (136-145) mmol/L Potassium (3.5-5.1) mmol/L Chloride (98-107) mmol/L Carbon Dioxide (21-32) mmol/L Anion Gap (3-11) BUN (7-18) mg/dl Creatinine (0.6-1.4) mg/dl Est Cr Clr Drug Dosing ml/min Est GFR ( Amer) ml/min Est GFR (Non-Af Amer) ml/min BUN/Creatinine Ratio (10-20) Glucose (70-99) mg/dl Calcium (8.5-10.1) mg/dl Total Bilirubin (0.2-1) mg/dl AST (15-37) U/L ALT (12-78) U/L Alkaline Phosphatase (45-117) U/L Total Protein (6.4-8.2) gm/dl Albumin (3.4-5.0) gm/dl Globulin (2.5-4.0) gm/dl Albumin/Globulin Ratio (0.9-2) POC Stool Occult Blood (Negative) COVID-19 Eval Order SARS-CoV-2 (PCR) (Negative) Blood Type O Positive Antibody Screen NEGATIVE 04/24/21 04/24/21 04/24/21 Range/Units 10:25 11:08 11:08 WBC (4.8-10.8) K/uL RBC (4.7-6.1) M/uL Hgb (14.0-18.0) g/dL Hct (42-52) % MCV (80-100) fL MCH (25-34) pg MCHC (32-36) g/dL RDW Std Deviation (36.4-46.3) fL RDW Coeff of Jocelyn (11.5-14.5) % Plt Count (130-400) K/uL MPV (7.4-10.4) fL PT (9.0-12.0) Seconds INR (0.9-1.1) APTT (21.0-31.0) Seconds PTT Ratio Sodium 141 (136-145) mmol/L Potassium 3.6 (3.5-5.1) mmol/L Chloride 112 H (98-107) mmol/L Carbon Dioxide 25 (21-32) mmol/L Anion Gap 4.0 (3-11) BUN 20 H (7-18) mg/dl Creatinine 0.87 (0.6-1.4) mg/dl Est Cr Clr Drug Dosing 65.3 ml/min Est GFR ( Amer) 91.9 ml/min Est GFR (Non-Af Amer) 79.3 ml/min BUN/Creatinine Ratio 22.9 H (10-20) Glucose 92 (70-99) mg/dl Calcium 8.9 (8.5-10.1) mg/dl Total Bilirubin 0.7 (0.2-1) mg/dl AST 14 L (15-37) U/L ALT 14 (12-78) U/L Alkaline Phosphatase 71 (45-117) U/L Total Protein 5.9 L (6.4-8.2) gm/dl Albumin 3.0 L (3.4-5.0) gm/dl Globulin 2.9 (2.5-4.0) gm/dl Albumin/Globulin Ratio 1.0 (0.9-2) POC Stool Occult Blood Positive A (Negative) COVID-19 Eval Order Covid19 at [facility] SARS-CoV-2 (PCR) (Negative) Blood Type Antibody Screen 04/24/21 Range/Units 11:08 WBC (4.8-10.8) K/uL RBC (4.7-6.1) M/uL Hgb (14.0-18.0) g/dL Hct (42-52) % MCV (80-100) fL MCH (25-34) pg MCHC (32-36) g/dL RDW Std Deviation (36.4-46.3) fL RDW Coeff of Jocelyn (11.5-14.5) % Plt Count (130-400) K/uL MPV (7.4-10.4) fL PT (9.0-12.0) Seconds INR (0.9-1.1) APTT (21.0-31.0) Seconds PTT Ratio Sodium (136-145) mmol/L Potassium (3.5-5.1) mmol/L Chloride (98-107) mmol/L Carbon Dioxide (21-32) mmol/L Anion Gap (3-11) BUN (7-18) mg/dl Creatinine (0.6-1.4) mg/dl Est Cr Clr Drug Dosing ml/min Est GFR ( Amer) ml/min Est GFR (Non-Af Amer) ml/min BUN/Creatinine Ratio (10-20) Glucose (70-99) mg/dl Calcium (8.5-10.1) mg/dl Total Bilirubin (0.2-1) mg/dl AST (15-37) U/L ALT (12-78) U/L Alkaline Phosphatase (45-117) U/L Total Protein (6.4-8.2) gm/dl Albumin (3.4-5.0) gm/dl Globulin (2.5-4.0) gm/dl Albumin/Globulin Ratio (0.9-2) POC Stool Occult Blood (Negative) COVID-19 Eval Order SARS-CoV-2 (PCR) NEGATIVE (Negative) Blood Type Antibody Screen Discharge Plan Visit Data Chief Complaint: Rectal Bleed Stated Complaint: Rectal Bleeding ED Provider: Chandu Mckeon Discharge Problem: Lower gastrointestinal hemorrhage, Diverticulosis, Anemia Patient Disposition: Being Evaluated by Hospitalist Forms Stand Alone Forms: [facility] Prescriptions Prescriptions: No Action tamsulosin [Flomax] 0.4 mg Capsule 0.4 mg PO HS RF: 0 dutasteride [Avodart] 0.5 mg Capsule 0.5 mg PO HS RF: 0 acetaminophen [Tylenol] 325 mg Tablet 325 mg PO QID PRN (Reason: Pain) RF: 0 Referrals Referrals: Ollie Wagner PA-C [Primary Care Provider] -
[2021-04-24 10:53] LABS: BUN Creatinine Ratio 22.9 (10-20); Calcium 8.9 mg/dl (8.5-10.1); Creatinine Clr Calc Pharmacy 65.3 ml/min; Est GFR (African American) 91.9 ml/min; Est GFR (Non-African American) 79.3 ml/min; Potassium 3.6 mmol/L (3.5-5.1)
[2021-04-24 10:56] LABS: Bilirubin,Total 0.7 mg/dl (0.2-1); Globulin 2.9 gm/dl (2.5-4.0); Total Protein 5.9 gm/dl (6.4-8.2)
--- NOTE | 2021-04-24 13:45 | Gastrointestinal Consultation ---
Date of Consultation April 24, 2021 Assessment & Plan (1) Acute GI bleedin85 year old male re-admitted w/ hematochezia, suspected diverticular hemorrhage how w/ 4 pt drop in HGB hemodynamically stable. No lightheadedness, dizziness, CP, SOB. Would recommend stat Nuc Med GI bleeding scan If positive, please arrange transfer for IR evaluation If negative, start clear liquid diet and 4L of golytely bowel prep and NPO after midnight If bleeding resolves with prep, continue conservative measures If bleeding persists with prep will arrange colonoscopy Trend HGB Transfuse PRN Document output Thank you for allowing us to participate in the care of this patient. Please call with any acute changes, questions or concerns. Please see addendum below with additional recommendation from my supervising physician. Supervising Physician Co-Signing Physician Notes I performed a history and physical examination of the patient today, including specifically on physical exam - soft abdomen. I have discussed the patient's management with the advanced practitioner. Please refer to the nurse practitioner's note for the documented findings and plan of care. Likely diverticular bleeding. Stat Bleeding scan. Further management: IR embolization Vs Colonoscopy based on clinical status and ability to do bowel prep. History of Present Illness Reason for Consultation: GIB Requesting Physician: Lidia Cody PA-C Attending Physician: Lidia Cody PA-C History of Present Illness 85 year old male with history of COPD, hypertension, BPH, past tobacco/alcohol abuse as per records, history choledocholithiasis readmitted w/ rectal bleeding x 1 day. He was discharged on 04/21, similar presentation. Suspected diverticular bleeding, bleeding resolved, At home he was doing well x 2 days. Notes yesterday he ate spicy food, noted BM after to have BRB. Has had 2 episodes of loose bloody stools since. No abd pain. Denies nausea, vomiting.. Denies fever, chills. No new medications. He does seem somewhat confused - having difficulty recall specifics of admission just two days ago. HGB 10 from 14 BUN 20 Allergies Allergy/AdvReac Type Severity Reaction Status Date / Time hydrochlorothiazide Allergy Severe PANCREATITI Verified 04/24/21 12:34 S meloxicam Allergy Mild RASH Verified 04/24/21 12:34 gabapentin AdvReac Severe Fainting Verified 04/24/21 12:34 Home Medications Medication Instructions Recorded Confirmed Type tamsulosin 0.4 mg capsule (Flomax) 0.4 mg PO HS 11/11/18 04/24/21 History dutasteride 0.5 mg capsule 0.5 mg PO HS 08/09/19 04/24/21 History (Avodart) acetaminophen 325 mg tablet 325 mg PO QID PRN 04/24/21 04/24/21 History (Tylenol) cholecalciferol (vitamin D3) 50 50 mcg PO DAILY 04/24/21 04/24/21 History mcg (2,000 unit) capsule (Vitamin D3) fluticasone propionate 50 2 spray INTRANASAL DAILY PRN 04/24/21 04/24/21 History mcg/actuation nasal spray,suspension Patient History Medical History (Updated 04/24/21 @ 14:44 by Chandu Mckeon DO) BPH (benign prostatic hyperplasia) DDD (degenerative disc disease) History of hypertension controlled since weight loss Osteoarthritis Spinal stenosis B/L LE radiculopathy Surgical History History of appendectomy History of carpal tunnel surgery RIGHT HAND History of colonoscopy History of tonsillectomy and adenoidectomy Hx of hernia repair RIGHT INGUINAL Hx of toe surgery HAD TOENAIL REMOVED IN OFFICE 12/2018 Hx of tonsillectomy Previous back surgery Family History Mother Liver cancer Social History Smoking Status: Never smoker Tobacco Type: Cigarettes Cigarettes Per Day: 10; Second Hand Exposure: No; Hx Alcohol Use: No Hx Substance Use: No Preferred Language: Yemeni Communication Ability: Effective Visual Impairment: No 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 HE IS TRYING TO FIND SOMEONE Other Information That Helps Us Care for You: No Feels Safe at Home: Yes Safety Concerns: Feels Safe At This Time Assistive Devices: Cane Review of Systems Review of Systems: All systems reviewed & are unremarkable except as noted in HPI & below Physical Exam Constitutional: WD/WN, vitals as above Respiratory: normal respiratory effort, lungs clear to auscultation Cardiovascular: Rate/Rhythm: regular rate and regular rhythm Gastrointestinal (Abdomen): normal bowel sounds, soft, nontender, no hepatosplenomegaly Skin: no rashes, warm and dry Results & Data ([facility]) Vital Signs (Past 12 Hours) Vital Signs Temp Pulse Resp BP Pulse Ox 04/24/21 13:10 85 16 04/24/21 13:00 65 23 117/64 96 04/24/21 12:50 68 20 97 04/24/21 12:30 68 19 117/61 04/24/21 12:00 63 16 116/66 94 04/24/21 11:30 72 15 119/64 96 04/24/21 11:00 67 15 112/62 95 04/24/21 10:30 67 19 105/67 97 04/24/21 10:20 68 19 105/67 95 04/24/21 09:54 36.8 C 75 17 101/62 96 Laboratory Results 04/24/21 04/24/21 04/24/21 Range/Units 11:08 11:08 11:08 WBC (4.8-10.8) K/uL RBC (4.7-6.1) M/uL Hgb (14.0-18.0) g/dL Hct (42-52) % MCV (80-100) fL MCH (25-34) pg MCHC (32-36) g/dL RDW Std Deviation (36.4-46.3) fL RDW Coeff of Jocelyn (11.5-14.5) % Plt Count (130-400) K/uL MPV (7.4-10.4) fL PT (9.0-12.0) Seconds INR (0.9-1.1) APTT (21.0-31.0) Seconds PTT Ratio Sodium (136-145) mmol/L Potassium (3.5-5.1) mmol/L Chloride (98-107) mmol/L Carbon Dioxide (21-32) mmol/L Anion Gap (3-11) BUN (7-18) mg/dl Creatinine (0.6-1.4) mg/dl Est Cr Clr Drug Dosing ml/min Est GFR ( Amer) ml/min Est GFR (Non-Af Amer) ml/min BUN/Creatinine Ratio (10-20) Glucose (70-99) mg/dl Calcium (8.5-10.1) mg/dl Total Bilirubin (0.2-1) mg/dl AST (15-37) U/L ALT (12-78) U/L Alkaline Phosphatase (45-117) U/L Total Protein (6.4-8.2) gm/dl Albumin (3.4-5.0) gm/dl Globulin (2.5-4.0) gm/dl Albumin/Globulin Ratio (0.9-2) POC Stool Occult Blood Positive A (Negative) COVID-19 Eval Order Covid19 at [facility] SARS-CoV-2 (PCR) NEGATIVE (Negative) Blood Type Antibody Screen 04/24/21 04/24/21 04/24/21 Range/Units 10:25 10:25 10:25 WBC 6.44 (4.8-10.8) K/uL RBC 3.26 L (4.7-6.1) M/uL Hgb 10.2 L (14.0-18.0) g/dL Hct 30.2 L (42-52) % MCV 92.6 (80-100) fL MCH 31.3 (25-34) pg MCHC 33.8 (32-36) g/dL RDW Std Deviation 46.8 H (36.4-46.3) fL RDW Coeff of Jocelyn 14.1 (11.5-14.5) % Plt Count 208 (130-400) K/uL MPV 8.8 (7.4-10.4) fL PT 10.9 (9.0-12.0) Seconds INR 1.1 (0.9-1.1) APTT 25.7 (21.0-31.0) Seconds PTT Ratio 1.0 Sodium 141 (136-145) mmol/L Potassium 3.6 (3.5-5.1) mmol/L Chloride 112 H (98-107) mmol/L Carbon Dioxide 25 (21-32) mmol/L Anion Gap 4.0 (3-11) BUN 20 H (7-18) mg/dl Creatinine 0.87 (0.6-1.4) mg/dl Est Cr Clr Drug Dosing 65.3 ml/min Est GFR ( Amer) 91.9 ml/min Est GFR (Non-Af Amer) 79.3 ml/min BUN/Creatinine Ratio 22.9 H (10-20) Glucose 92 (70-99) mg/dl Calcium 8.9 (8.5-10.1) mg/dl Total Bilirubin 0.7 (0.2-1) mg/dl AST 14 L (15-37) U/L ALT 14 (12-78) U/L Alkaline Phosphatase 71 (45-117) U/L Total Protein 5.9 L (6.4-8.2) gm/dl Albumin 3.0 L (3.4-5.0) gm/dl Globulin 2.9 (2.5-4.0) gm/dl Albumin/Globulin Ratio 1.0 (0.9-2) POC Stool Occult Blood (Negative) COVID-19 Eval Order SARS-CoV-2 (PCR) (Negative) Blood Type Antibody Screen 04/24/21 Range/Units 10:25 WBC (4.8-10.8) K/uL RBC (4.7-6.1) M/uL Hgb (14.0-18.0) g/dL Hct (42-52) % MCV (80-100) fL MCH (25-34) pg MCHC (32-36) g/dL RDW Std Deviation (36.4-46.3) fL RDW Coeff of Jocelyn (11.5-14.5) % Plt Count (130-400) K/uL MPV (7.4-10.4) fL PT (9.0-12.0) Seconds INR (0.9-1.1) APTT (21.0-31.0) Seconds PTT Ratio Sodium (136-145) mmol/L Potassium (3.5-5.1) mmol/L Chloride (98-107) mmol/L Carbon Dioxide (21-32) mmol/L Anion Gap (3-11) BUN (7-18) mg/dl Creatinine (0.6-1.4) mg/dl Est Cr Clr Drug Dosing ml/min Est GFR ( Amer) ml/min Est GFR (Non-Af Amer) ml/min BUN/Creatinine Ratio (10-20) Glucose (70-99) mg/dl Calcium (8.5-10.1) mg/dl Total Bilirubin (0.2-1) mg/dl AST (15-37) U/L ALT (12-78) U/L Alkaline Phosphatase (45-117) U/L Total Protein (6.4-8.2) gm/dl Albumin (3.4-5.0) gm/dl Globulin (2.5-4.0) gm/dl Albumin/Globulin Ratio (0.9-2) POC Stool Occult Blood (Negative) COVID-19 Eval Order SARS-CoV-2 (PCR) (Negative) Blood Type O Positive Antibody Screen NEGATIVE
--- NOTE | 2021-04-24 14:02 | History & Physical Report ---
Date of Service April 24, 2021 Assessment & Plan (1) Acute GI bleeding: (2) BPH (benign prostatic hyperplasia): Plan: Pt presenting with the ED with recurrent GI bleeding and drop in H&H - Monitor in PCU - Appreciate GI input - nuclear med bleeding scan pending - NPO for now pending results of scan - if negative, clear liquid diet and colonoscopy prep - Serial H&H - transfuse as needed - Orthostatic vital signs - Two peripheral IV sites - I's and O's - Continue home meds as appropriate Pt seen and reviewed with attending physician, Dr. Ramsey. Plan of care discussed and as outlined above. DVT Prophylaxis: SCDs Code Status: Full Code Artur Vang PA-C History of Present Illness Chief Complaint: GI Bleed Primary Care Provider: Ollie Wagner PA-C This is an 85 y/o male with a PMH emphysema, BPH, lumbar DDD, pulmonary nodule, choledocholithiasis and recent diverticular bleed who presents to the ED with recurrent episode of GI bleeding. Pt was admitted earlier this week on 04/20 with lower GI bleeding, thought diverticular in etiology. Bleeding seemed to stop with conservative management so pt went home on 04/21. He reports doing well at home without evidence of recurrent bleeding until this morning. BMs were "normal" until today when he had a BM mixed with large amount of bright red blood. He denies associated abdominal pain, nausea, vomiting, bloating, fevers or chills. Last colonoscopy in 2019 showed polyps, diverticulosis. He denies any prior history of GI bleeding before this year. He was taking Naprosyn for hip pain but stopped this since his first episode of GI bleeding. Denies any other NSAIDs or aspirin. Allergies Allergy/AdvReac Type Severity Reaction Status Date / Time hydrochlorothiazide Allergy Severe PANCREATITI Verified 04/24/21 12:34 S meloxicam Allergy Mild RASH Verified 04/24/21 12:34 gabapentin AdvReac Severe Fainting Verified 04/24/21 12:34 Home Medications Medication Instructions Recorded Confirmed Type tamsulosin 0.4 mg capsule (Flomax) 0.4 mg PO HS 11/11/18 04/24/21 History dutasteride 0.5 mg capsule 0.5 mg PO HS 08/09/19 04/24/21 History (Avodart) acetaminophen 325 mg tablet 325 mg PO QID PRN 04/24/21 04/24/21 History (Tylenol) cholecalciferol (vitamin D3) 50 50 mcg PO DAILY 04/24/21 04/24/21 History mcg (2,000 unit) capsule (Vitamin D3) fluticasone propionate 50 2 spray INTRANASAL DAILY PRN 04/24/21 04/24/21 History mcg/actuation nasal spray,suspension Past Med/Surg History Medical History BPH (benign prostatic hyperplasia) DDD (degenerative disc disease) History of hypertension controlled since weight loss Osteoarthritis Spinal stenosis B/L LE radiculopathy Surgical History History of appendectomy History of carpal tunnel surgery RIGHT HAND History of colonoscopy History of tonsillectomy and adenoidectomy Hx of hernia repair RIGHT INGUINAL Hx of toe surgery HAD TOENAIL REMOVED IN OFFICE 12/2018 Hx of tonsillectomy Previous back surgery Family History Mother Liver cancer Social History Smoking Status: Never smoker Tobacco Type: Cigarettes Cigarettes Per Day: 10; Second Hand Exposure: No; Hx Alcohol Use: No Hx Substance Use: No Preferred Language: [place] Communication Ability: Effective Visual Impairment: No Limitations Resort Keeper Required: No Beliefs That Will Affect Care: None marital status: Current Living Situation: Spouse Current Living Situation Comment: 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 HE IS TRYING TO FIND SOMEONE Other Information That Helps Us Care for You: No Feels Safe at Home: Yes Safety Concerns: Feels Safe At This Time Assistive Devices: Cane Review of Systems Review of Systems: All systems reviewed & are unremarkable except as noted in HPI & below Constitutional: no fever, no chills, no sweats, no fatigue and no weight loss Eyes: no diplopia and no worsening vision Respiratory: no cough, no dyspnea, no hemoptysis and no wheezing Cardiovascular: + lightheadedness; no chest pain, no palpitations and no syncope Gastrointestinal: as per Subjective / HPI and + blood in stools; no abdominal pain, no bloating, no heartburn and no nausea Genitourinary: no dysuria, no urinary frequency or no hematuria Musculoskeletal: + joint pain (chronic hip pain); no back pain and no neck pain Integumentary: no rash and no skin ulcer Neurologic: no tremor(s), no seizure-like activity, no syncope, no headache(s) and no confusion Psychiatric: no depression and no anxiety Physical Exam Constitutional: WD/WN, vitals as above no acute distress Eyes: + anicteric sclerae Neck: trachea midline Respiratory: no respiratory distress and no labored breathing Auscultation: lungs clear to auscultation bilaterally; no rales, no rhonchi and no wheezes Cardiovascular: Rate/Rhythm: regular rate and regular rhythm Heart Sounds: no gallop, no murmur and no cardiac rub Gastrointestinal (Abdomen): Inspection/Auscultation: normal bowel sounds; abdomen not distended Percussion/Palpation: abdomen soft; abdomen nontender Musculoskeletal: Head/Neck/Chest: normocephalic, head atraumatic and neck supple Skin: no rashes, warm and dry Neurologic: moves all extremities; no focal motor deficits Psychiatric: A+Ox3, euthymic affect Results & Data Results & Data ([facility]) Vital Signs (Past 12 Hours) Vital Signs Temp Pulse Resp BP Pulse Ox 04/24/21 13:10 85 16 04/24/21 13:00 65 23 117/64 96 04/24/21 12:50 68 20 97 04/24/21 12:30 68 19 117/61 04/24/21 12:00 63 16 116/66 94 04/24/21 11:30 72 15 119/64 96 04/24/21 11:00 67 15 112/62 95 04/24/21 10:30 67 19 105/67 97 04/24/21 10:20 68 19 105/67 95 04/24/21 09:54 36.8 C 75 17 101/62 96 Laboratory Results Laboratory Results - last 24 hr 04/24/21 04/24/21 04/24/21 10:25 10:25 10:25 WBC 6.44 RBC 3.26 L Hgb 10.2 L Hct 30.2 L MCV 92.6 MCH 31.3 MCHC 33.8 RDW Std Deviation 46.8 H RDW Coeff of Jocelyn 14.1 Plt Count 208 MPV 8.8 PT 10.9 INR 1.1 APTT 25.7 PTT Ratio 1.0 Sodium Potassium Chloride Carbon Dioxide Anion Gap BUN Creatinine Est Cr Clr Drug Dosing Est GFR ( Amer) Est GFR (Non-Af Amer) BUN/Creatinine Ratio Glucose Calcium Total Bilirubin AST ALT Alkaline Phosphatase Total Protein Albumin Globulin Albumin/Globulin Ratio POC Stool Occult Blood COVID-19 Eval Order SARS-CoV-2 (PCR) Blood Type O Positive Antibody Screen NEGATIVE 04/24/21 04/24/21 04/24/21 10:25 11:08 11:08 WBC RBC Hgb Hct MCV MCH MCHC RDW Std Deviation RDW Coeff of Jocelyn Plt Count MPV PT INR APTT PTT Ratio Sodium 141 Potassium 3.6 Chloride 112 H Carbon Dioxide 25 Anion Gap 4.0 BUN 20 H Creatinine 0.87 Est Cr Clr Drug Dosing 65.3 Est GFR ( Amer) 91.9 Est GFR (Non-Af Amer) 79.3 BUN/Creatinine Ratio 22.9 H Glucose 92 Calcium 8.9 Total Bilirubin 0.7 AST 14 L ALT 14 Alkaline Phosphatase 71 Total Protein 5.9 L Albumin 3.0 L Globulin 2.9 Albumin/Globulin Ratio 1.0 POC Stool Occult Blood Positive A COVID-19 Eval Order Covid19 at [facility] SARS-CoV-2 (PCR) Blood Type Antibody Screen 04/24/21 11:08 WBC RBC Hgb Hct MCV MCH MCHC RDW Std Deviation RDW Coeff of Jocelyn Plt Count MPV PT INR APTT PTT Ratio Sodium Potassium Chloride Carbon Dioxide Anion Gap BUN Creatinine Est Cr Clr Drug Dosing Est GFR ( Amer) Est GFR (Non-Af Amer) BUN/Creatinine Ratio Glucose Calcium Total Bilirubin AST ALT Alkaline Phosphatase Total Protein Albumin Globulin Albumin/Globulin Ratio POC Stool Occult Blood COVID-19 Eval Order SARS-CoV-2 (PCR) NEGATIVE Blood Type Antibody Screen Code Status & VTE Plan VTE Prophylaxis Plan VTE Prophylaxis will be ordered: Yes Supervising Physician Co-Signing Physician Notes I have seen and examined the patient and have discussed the case with the provider above. I agree with the assessment and plan as stated. 85 yo M with recent diverticular bleed presents with 1 day of worsening blood per rectum. Bleeding scan was negative. Colonoscopy recommended by GI team. He denies any abdominal pain My physical reflects that above. Lyla H/H/ . DO [place]
--- NOTE | 2021-04-24 17:09 | Nuclear Medicine Report ---
TAGGED RED BLOOD CELL GI BLEEDING SCAN CLINICAL HISTORY: hematochezia COMPARISON STUDY: CT of the abdomen and pelvis April 20, 2021. TECHNIQUE: Following the IV administration of 27 mCi of technetium 99m UltraTag labeled red blood norman ls, nuclear bleeding scan was performed. Anterior flow images were obtained every 2 seconds for a tot al 48 seconds. Anterior static images were obtained every 5 minutes for a total of 60 minutes. FINDINGS: Expected radiotracer distribution is noted. There is uptake within the bladder. There is a lso uptake within the penis. No foci of radiotracer deposition are noted to suggest active GI bleed d uring this 60 minute exam. IMPRESSION: No evidence for active GI bleed during this 60 minute exam. ACT 112: Negative or not required by law. Electronically signed by: Keshawn Mckeon M.D. 04/24/2021 5:07 PM
[2021-04-24] MEDS: LAVAGE SOLUTION 4000ML PO SCH (21:31)
[2021-04-24 22:41] LABS: Hematocrit (blood only) 35.2 % (42-52)
[2021-04-25] MEDS: LAVAGE SOLUTION 4000ML PO SCH (02:08)
--- NOTE | 2021-04-25 08:29 | Hospitalist Progress Note ---
Date of Service April 25, 2021 Assessment & Plan (1) Acute GI bleeding: Plan: Similar presentation recently with suspected diverticular bleeding. Was doing well at home for 2 days ate some spicy food and was noted to have rectal bleeding prior to arrival he completed prep overnight and is now having clear bowel movements. Tagged red blood cell scan performed yesterday revealed no evidence for active GI bleeding. He is not on any blood thinner therapy. Seria l H&H has been stable. He is hemodynamically stable. Continue management per GI recommendation. (2) BPH (benign prostatic hyperplasia): Plan: Continue Avodart and Flomax per home regimen. (3) DVT prophylaxis: Plan: SCDs/ambulation Full code Disposition-pending clinical improvement. Fariba Ramsey [facility] and Anticipated Discharge Date Admission Date: April 24, 2021 Subjective 85 yo M presents with acute GI bleeding given colonoscopy prep overnight and currrently having clear, nonbloody bowel movements. patient is reporting positional lightheadedness denies chest pain, SOB or other issues at this time. Review of Systems Review of Systems: At least ten systems were reviewed and negative except as indicated in HPI above. Physical Exam Physical Exam: CONSTITUTIONAL: WNWD, vitals as above, generally ill- appearing, NAD EYES: normal conjunctivae, no scleral icterus ENT: external ear and nose normal, MMM NECK: trachea midline RESPIRATORY: clear to auscultation bilaterally, no crackles, rales or wheezes, normal respiratory effort CARDIOVASCULAR: regular rate and rhythm, S1 and 2 heard without murmurs, gallops or rubs, no JVD, no peripheral edema GASTROINTESTINAL: soft, nontender, ND, no guarding MUSCULOSKELETAL: strength 5/5 throughout, head is normocephalic and atraumatic, neck supple, normal palpation of chest wall without tenderness SKIN: warm and dry NEUROLOGIC: CN 2-12 grossly intact, normal cognition, normal speech, no tremor. No gross focal deficits. PSYCHIATRIC: alert cooperative and oriented to person, place and time. Results & Data Results & Data ([facility]) Vital Signs (Past 12 Hours) Vital Signs Temp Pulse Pulse Resp BP Pulse Ox 04/25/21 04:16 36.7 C 74 16 121/65 98 04/24/21 23:52 93 H 04/24/21 23:50 36.4 C L 76 24 151/68 H 97 10/15/21 21:35 60 Laboratory Results Short CBC 04/24/21 04/24/21 Range/Units 10:25 22:31 WBC 6.44 (4.8-10.8) K/uL Hgb 10.2 L 12.0 L (14.0-18.0) g/dL Hct 30.2 L 35.2 L (42-52) % Plt Count 208 (130-400) K/uL BMP 04/24/21 10:25 Sodium 141 Potassium 3.6 Chloride 112 H Carbon Dioxide 25 BUN 20 H Creatinine 0.87 Glucose 92 Calcium 8.9 Liver Function 04/24/21 Range/Units 10:25 Total Bilirubin 0.7 (0.2-1) mg/dl AST 14 L (15-37) U/L ALT 14 (12-78) U/L Alkaline Phosphatase 71 (45-117) U/L Albumin 3.0 L (3.4-5.0) gm/dl Medications Administered Current Inpatient Medications Polyethylene Glycol/Electrolytes (Lavage Solution 4000ml) 8 dose PO TODAY@0200,1900 [facility] Stop: 04/25/21 09:00 Last Admin: 04/25/21 02:08 Dose: 8 dose Documented by:
[2021-04-25 09:09] LABS: Basophils # (auto) 0.03 K/uL (0-0.2); Basophils % (auto) 0.5 %; Eosinophils # (auto) 0.21 K/uL (0-0.5); Eosinophils % (auto) 3.2 %; Hematocrit (blood only) 31.5 % (42-52); Hemoglobin 10.6 g/dL (14.0-18.0); Immature Granulocytes # (auto) 0.01 K/uL (0.00-0.02); Immature Granulocytes % (auto) 0.2 %; Lymphocytes # (auto) 1.02 K/uL (1.2-3.4); Lymphocytes % (auto) 15.8 %; Mean Corpuscular Hgb Conc 33.7 g/dL (32-36); Mean Corpuscular Volume 92.1 fL (80-100); Mean Platelet Volume 9.5 fL (7.4-10.4); Monocytes # (auto) 0.51 K/uL (0.11-0.59); Monocytes % (auto) 7.9 %; Neutrophils # (auto) 4.69 K/uL (1.4-6.5); Neutrophils % (auto) 72.4 %; Platelet Count 272 K/uL (130-400); RDW Coefficient of Variation 14.1 % (11.5-14.5); RDW Standard Deviation 45.4 fL (36.4-46.3); Red Blood Count 3.42 M/uL (4.7-6.1); White Blood Count 6.47 K/uL (4.8-10.8)
[2021-04-25 09:29] LABS: BUN Creatinine Ratio 17.6 (10-20); Calcium 9.1 mg/dl (8.5-10.1); Creatinine Clr Calc Pharmacy 84.7 ml/min; Est GFR (African American) 102.3 ml/min; Est GFR (Non-African American) 88.2 ml/min; Potassium 3.5 mmol/L (3.5-5.1)
--- NOTE | 2021-04-25 11:30 | Gastroenterology Progress Note ---
Date of Service April 25, 2021 Assessment & Plan (1) Lower gastrointestinal hemorrhage: (2) Anemia: Plan: No further GI bleeding at present Bleeding scan negative Advance to clear liquid diet. Patient refuses colonoscopy Admission and Anticipated Discharge Date Admission Date: April 24, 2021 Subjective Doing well at present. BM's have been clear, without any sign of bleeding. Bleeding scan was negative and reports were communicated with patient. He states, "I would prefer to avoid a colonoscopy, unless it is absolutely necessary." He denies any fever, chills, nausea, vomiting, hematemesis, melena or hematochezia. He has no further complaints. Review of Systems Constitutional: as per Subjective / HPI Eyes: as per Subjective / HPI Ear, Nose, Mouth, Throat: as per Subjective / HPI Respiratory: as per Subjective / HPI Cardiovascular: as per Subjective / HPI Gastrointestinal: as per Subjective / HPI Musculoskeletal: as per Subjective / HPI Integumentary: as per Subjective / HPI Neurologic: as per Subjective / HPI Psychiatric: as per Subjective / HPI Endocrine: as per Subjective / HPI Hematologic / Lymphatic: as per Subjective / HPI Allergy / Immunological: as per Subjective / HPI Physical Exam Constitutional: WD/WN, vitals as above Respiratory: normal respiratory effort, lungs clear to auscultation Cardiovascular: RRR, no murmur, no edema Gastrointestinal (Abdomen): normal bowel sounds, soft, nontender, no hepatosplenomegaly Results & Data Results & Data ([facility]) Vital Signs (Past 12 Hours) Vital Signs Temp Pulse Pulse Resp BP Pulse Ox Pulse Ox 04/25/21 08:00 62 98 04/25/21 07:00 36.5 C 79 18 128/64 97 04/25/21 04:16 36.7 C 74 16 121/65 98 04/24/21 23:52 93 H 04/24/21 23:50 36.4 C L 76 24 151/68 H 97 PG Care Time/CCT Total # of Minutes Spent Total Time Spent with Patient: Total time spent is greater than 50% in coordination of care (as documented) at patient's floor/unit and/or counseling patient: Coding Level of Care Code 87727 Subseq Hosp Care Lvl 3 Diagnoses Lower gastrointestinal hemorrhage K92.2 Anemia D64.9 Anemia type: unspecified type (1) Anemia Anemia type: unspecified type Qualified Code(s): D64.9 - Anemia, unspecified
[2021-04-25] MEDS ORDERED: TAMSULOSIN HCL 0.4 MG CAP PO SCH (21:00)
[2021-04-26 08:48] LABS: Hematocrit (blood only) 32.7 % (42-52); Mean Corpuscular Hemoglobin 31.3 pg (25-34); Mean Corpuscular Hgb Conc 33.6 g/dL (32-36); Mean Corpuscular Volume 92.9 fL (80-100); Mean Platelet Volume 9.3 fL (7.4-10.4); Platelet Count 287 K/uL (130-400); RDW Coefficient of Variation 14.6 % (11.5-14.5); RDW Standard Deviation 47.7 fL (36.4-46.3); Red Blood Count 3.52 M/uL (4.7-6.1); White Blood Count 6.83 K/uL (4.8-10.8)
[2021-04-26 09:12] LABS: BUN Creatinine Ratio 11.8 (10-20); Creatinine Clr Calc Pharmacy 59.4 ml/min; Est GFR (African American) 88.2 ml/min; Est GFR (Non-African American) 76.1 ml/min; Potassium 3.3 mmol/L (3.5-5.1)
[2021-04-26] MEDS ORDERED: POTASSIUM CHLORIDE CRTAB 20 MEQ TABCR PO STA (10:17)
--- NOTE | 2021-04-26 11:45 | Discharge Summary ---
Date of Service April 26, 2021 Admission HPI Per Admitting Provider This is an 85 y/o male with a PMH emphysema, BPH, lumbar DDD, pulmonary nodule, choledocholithiasis and recent diverticular bleed who presents to the ED with recurrent episode of GI bleeding. Pt was admitted earlier this week on 04/20 with lower GI bleeding, thought diverticular in etiology. Bleeding seemed to stop with conservative management so pt went home on 04/21. He reports doing well at home without evidence of recurrent bleeding until this morning. BMs were "normal" until today when he had a BM mixed with large amount of bright red blood. He denies associated abdominal pain, nausea, vomiting, bloating, fevers or chills. Last colonoscopy in 2019 showed polyps, diverticulosis. He denies any prior history of GI bleeding before this year. He was taking Naprosyn for hip pain but stopped this since his first episode of GI bleeding. Denies any other NSAIDs or aspirin. Admission Exam Per Admitting Provider Constitutional: WD/WN, vitals as above no acute distress Eyes: + anicteric sclerae Neck: trachea midline Respiratory: no respiratory distress and no labored breathing Auscultation: lungs clear to auscultation bilaterally; no rales, no rhonchi and no wheezes Cardiovascular: Rate/Rhythm: regular rate and regular rhythm Heart Sounds: no gallop, no murmur and no cardiac rub Gastrointestinal (Abdomen): Inspection/Auscultation: normal bowel sounds; abdomen not distended Percussion/Palpation: abdomen soft; abdomen nontender Musculoskeletal: Head/Neck/Chest: normocephalic, head atraumatic and neck supple Skin: no rashes, warm and dry Neurologic: moves all extremities; no focal motor deficits Psychiatric: A+Ox3, euthymic affect Principal Diagnosis Acute lower gastrointestinal bleeding Acute blood loss anemia Discharge Exam CONSTITUTIONAL: WNWD, vitals as above, generally ill-appearing, NAD EYES: normal conjunctivae, no scleral icterus ENT: external ear and nose normal, MMM NECK: trachea midline RESPIRATORY: clear to auscultation bilaterally, no crackles, rales or wheezes, normal respiratory effort CARDIOVASCULAR: regular rate and rhythm, S1 and 2 heard without murmurs, gallops or rubs, no JVD, no peripheral edema GASTROINTESTINAL: soft, nontender, ND, no guarding MUSCULOSKELETAL: strength 5/5 throughout, head is normocephalic and atraumatic, neck supple, normal palpation of chest wall without tenderness SKIN: warm and dry NEUROLOGIC: CN 2-12 grossly intact, normal cognition, normal speech, no tremor. No gross focal deficits. PSYCHIATRIC: alert cooperative and oriented to person, place and time. Discharge Data Allergies Allergy/AdvReac Type Severity Reaction Status Date / Time hydrochlorothiazide Allergy Severe PANCREATITI Verified 04/24/21 12:34 S meloxicam Allergy Mild RASH Verified 04/24/21 12:34 gabapentin AdvReac Severe Fainting Verified 04/24/21 12:34 Consultations 04/24/21 12:42 ED Decision to Admit Stat 04/24/21 13:16 Consult Gastroenterology Routine Hospital Course (1) Acute GI bleeding: Similar presentation recently with suspected diverticular bleeding. Was doing well at home for 2 days ate some spicy food and was noted to have rectal bleeding prior to arrival he completed prep overnight and is now having clear bowel movements. Tagged red blood cell scan performed yesterday revealed no evidence for active GI bleeding. He is not on any blood thinner therapy. Serial H&H has been stable. He is hemodynamically stable. As he had no further bleeding after the prep was administered and remained stable, the patient declined a colonoscopy and this was not performed in the hospital. Close primary care follow-up is recommended in order to ensure anemia is improving and there was no further return of GI blood loss. (2) Lower gastrointestinal hemorrhage: (3) Acute blood loss anemia: Total Time Total Time Spent Total Time Spent (In Minutes): 60 Discharge Plan Discharge Items Patient Disposition: Home - Self-Care Reason For Visit: Rectal Bleeding Discharge Diagnosis: Acute lower gastrointestinal bleeding Acute blood loss anemia Condition on Discharge: Good Activity: Resume your previous activity Non-emergency contact: Primary Care Provider Call non-emergency contact if: you have any medication questions, your symptoms worsen, your pain is not controlled, your pain is worsening, your pain is unusual for you, your pain is concerning for you and you have a fever Follow-up/Referrals: Ollie Wagner PA-C [Primary Care Provider] - Diet: Regular Addtl Attending Provider Instructions: Please continue all medications below without changes. It is recommended that you follow-up with your primary care physician within one week to ensure you are still doing well since going home, you have no further bleeding, and to repeat your blood count. It was a pleasure taking care of you! Please call if you have any questions or problems. You can reach a [facility] hospitalist on duty at [facility] 24 hours a day by calling [phone]. Take care of yourself. Fariba Ramsey DO [facility] Pending Studies at Discharge: No Stand-Alone Forms: My [facility] Medications and DC Order Prescriptions: Continued tamsulosin [Flomax] 0.4 mg Capsule 0.4 mg PO HS RF: 0 dutasteride [Avodart] 0.5 mg Capsule 0.5 mg PO HS RF: 0 acetaminophen [Tylenol] 325 mg Tablet 325 mg PO QID PRN (Reason: Pain) RF: 0 fluticasone propionate 50 mcg/actuation spray,suspension 2 spray INTRANASAL DAILY PRN (Reason: Congestion) RF: 0 cholecalciferol (vitamin D3) [Vitamin D3] 50 mcg (2,000 unit) Capsule 50 mcg PO DAILY RF: 0 Discharge Orders: Discharge Order (Routine); Ordered 04/26/21 Ordered By: Fariba Ramsey Admission Data Admit Date/Time: 04/24/21 13:29 Attending Provider: Fariba Ramsey Admit Provider: Fariba Ramsey Primary Care Provider: Ollie Wagner Other Providers: Ok Carranza ; Eliot Yuen Other Interventions: Discharge Summary Assessment (RN) Last Done: 04/26/21 12:01
--- NOTE | 2021-04-27 16:05 | Electrocardiogram Report ---
Test Reason : Blood Pressure : / mmHG Vent. Rate : 068 BPM Atrial Rate : 068 BPM P-R Int : 162 ms QRS Dur : 136 ms QT Int : 440 ms P-R-T Axes : 018 -21 040 degrees QTc Int : 467 ms Normal sinus rhythm Right bundle branch block Abnormal ECG When compared with ECG of 20-APR-2021 00:27, No significant change Confirmed by Marino Montes ([id number]) on 04/27/2021 4:05:15 PM Referred By: REFERRED SELF Confirmed By:Marino Montes
== END 2021-04-26 13:05 | disposition home or self-care (01) | DRG 378 ==
LOC: ED 09:47 → EDINP 13:29 → 2S 18:56

== ENCOUNTER 2021-06-04 01:01 | Observation (INO) ==
[2021-06-04 02:14] LABS: Hematocrit (blood only) 30.1 % (42-52); Hemoglobin 9.8 g/dL (14.0-18.0); Mean Corpuscular Hemoglobin 29.9 pg (25-34); Mean Corpuscular Hgb Conc 32.6 g/dL (32-36); Mean Corpuscular Volume 91.8 fL (80-100); Mean Platelet Volume 9.4 fL (7.4-10.4); Platelet Count 271 K/uL (130-400); RDW Coefficient of Variation 13.3 % (11.5-14.5); RDW Standard Deviation 45.1 fL (36.4-46.3); Red Blood Count 3.28 M/uL (4.7-6.1); White Blood Count 9.85 K/uL (4.8-10.8)
[2021-06-04 02:24] LABS: INR 1.1 (0.9-1.1); Partial Thromboplastin Ratio 0.8; Partial Thromboplastin Time 21.4 Seconds (21.0-31.0); Prothrombin Time 10.7 Seconds (9.0-12.0)
--- NOTE | 2021-06-04 02:29 | Emergency Department Note ---
History of Present Illness General Chief complaint: Rectal Bleed Stated complaint: RECTAL BLEED Time Seen by Provider: 06/04/21 01:47 Source: patient Mode of arrival: ambulatory Limitations: no limitations History of Present Illness Provider complaint: gi bleed Onset (ago): hour(s) Associated symptoms: + malaise; no headaches, no nausea/vomiting or no syncope Treatments prior to arrival: none This is an 86-year-old male presents emergency department with complaints of bright red blood per rectum. Patient states he does have a prior history of GI bleed however did not need scoped. Patient states he has had prior colonoscopies, no prior EGD. Patient denies any use of aspirin, Coumadin, or other antiplatelet or anticoagulation therapy. Patient states no prior history of peptic ulcer disease or GERD. Patient denies any accompanying rectal pain or abdominal pain. States he was getting dizzy and lightheaded with these episodes. He denies chest pain, shortness of breath, fevers or chills. No recent change in diet or activity. Patient states he had multiple episodes at home and then had 2 more episodes on arrival here. Nursing staff did verify the bright red blood per rectum on it was also observed by myself upon entering the room. Upon review of EMR, patient with a recent admission last month for GI bleed. GI bleeding at that time felt to be diverticular. No colonoscopy performed. Pt seen during a time of high acuity and national emergency pandemic while wearing PPE. Home Medications Medication Instructions Recorded Confirmed Type tamsulosin 0.4 mg capsule (Flomax) 0.4 mg PO HS 11/11/18 06/04/21 History dutasteride 0.5 mg capsule 0.5 mg PO HS 08/09/19 06/04/21 History (Avodart) acetaminophen 325 mg tablet 325 mg PO QID PRN 04/24/21 06/04/21 History (Tylenol) cholecalciferol (vitamin D3) 50 50 mcg PO DAILY 04/24/21 06/04/21 History mcg (2,000 unit) capsule (Vitamin D3) fluticasone propionate 50 2 spray INTRANASAL DAILY PRN 04/24/21 06/04/21 History mcg/actuation nasal spray,suspension naproxen 375 mg tablet,delayed 375 mg PO BID 06/04/21 06/04/21 History release Allergies Allergy/AdvReac Type Severity Reaction Status Date / Time hydrochlorothiazide Allergy Severe PANCREATITI Verified 06/04/21 01:35 S meloxicam Allergy Mild RASH Verified 06/04/21 01:35 gabapentin AdvReac Severe Fainting Verified 06/04/21 01:35 Past Med/Surg History Medical History (Updated 06/04/21 @ 09:04 by Aira Sunshine DO) BPH (benign prostatic hyperplasia) DDD (degenerative disc disease) History of hypertension controlled since weight loss Osteoarthritis Spinal stenosis B/L LE radiculopathy Surgical History History of appendectomy History of carpal tunnel surgery RIGHT HAND History of colonoscopy History of tonsillectomy and adenoidectomy Hx of hernia repair RIGHT INGUINAL Hx of toe surgery HAD TOENAIL REMOVED IN OFFICE 12/2018 Hx of tonsillectomy Previous back surgery Family History Mother Liver cancer Social History Smoking Status: Unknown if ever smoked Tobacco Type: Cigarettes Cigarettes Per Day: 10; Second Hand Exposure: No; Hx Alcohol Use: No Hx Substance Use: No Preferred Language: Irish Communication Ability: Effective Visual Impairment: No Limitations 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 HE IS TRYING TO FIND SOMEONE Feels Safe at Home: Yes Assistive Devices: None Review of Systems A total of 10 systems reviewed and were otherwise negative All systems reviewed & are unremarkable except as noted in HPI & below Physical Exam Vital Signs Vital Signs - 24 hr 06/04/21 01:08 06/04/21 01:21 06/04/21 01:30 Temperature 36.9 C Temperature Source Oral Pulse Rate - Lying Pulse Rate 73 75 82 Pulse Rate [Right] Pulse Rate from SpO2 Sensor Respiratory Rate 16 25 H 33 H Respiratory Effort / Characteristics Non-Labored Respiratory Depth Normal Respiratory Pattern Regular Blood Pressure - Lying Blood Pressure 123/70 Blood Pressure [Right Arm] Blood Pressure Mean 87 Blood Pressure Mean [Right Arm] Blood Pressure Position Lying Blood Pressure Position [Right Arm] Pulse Oximetry 98 Oxygen Delivery Method Room Air Oxygen Flow Rate Sepsis Recent Fever Within 48 Hours No Sepsis New/Unexplained Change in Mental Status No Sepsis Action Taken by Nursing No Action Required 06/04/21 01:40 06/04/21 01:50 06/04/21 01:58 Temperature Temperature Source Pulse Rate - Lying Pulse Rate 79 75 72 Pulse Rate [Right] Pulse Rate from SpO2 Sensor 80 77 Respiratory Rate 16 21 20 Respiratory Effort / Characteristics Non-Labored Respiratory Depth Normal Respiratory Pattern Blood Pressure - Lying Blood Pressure Blood Pressure [Right Arm] 99/56 L Blood Pressure Mean Blood Pressure Mean [Right Arm] 70 Blood Pressure Position Blood Pressure Position [Right Arm] Lying Pulse Oximetry 82 L 100 Oxygen Delivery Method Room Air Oxygen Flow Rate Sepsis Recent Fever Within 48 Hours Sepsis New/Unexplained Change in Mental Status Sepsis Action Taken by Nursing 06/04/21 02:00 06/04/21 02:05 06/04/21 02:10 Temperature Temperature Source Pulse Rate - Lying 70 Pulse Rate 74 74 Pulse Rate [Right] Pulse Rate from SpO2 Sensor 76 74 Respiratory Rate 21 25 H Respiratory Effort / Characteristics Respiratory Depth Respiratory Pattern Blood Pressure - Lying 101/67 Blood Pressure Blood Pressure [Right Arm] Blood Pressure Mean Blood Pressure Mean [Right Arm] Blood Pressure Position Blood Pressure Position [Right Arm] Pulse Oximetry 99 99 Oxygen Delivery Method Oxygen Flow Rate Sepsis Recent Fever Within 48 Hours Sepsis New/Unexplained Change in Mental Status Sepsis Action Taken by Nursing 06/04/21 02:20 06/04/21 02:30 06/04/21 02:40 Temperature Temperature Source Pulse Rate - Lying Pulse Rate 76 74 73 Pulse Rate [Right] Pulse Rate from SpO2 Sensor 77 76 73 Respiratory Rate 25 H 20 20 Respiratory Effort / Characteristics Respiratory Depth Respiratory Pattern Blood Pressure - Lying Blood Pressure 105/52 L Blood Pressure [Right Arm] Blood Pressure Mean 69 Blood Pressure Mean [Right Arm] Blood Pressure Position Blood Pressure Position [Right Arm] Pulse Oximetry 99 100 92 Oxygen Delivery Method Oxygen Flow Rate Sepsis Recent Fever Within 48 Hours Sepsis New/Unexplained Change in Mental Status Sepsis Action Taken by Nursing 06/04/21 02:50 06/04/21 03:00 06/04/21 03:10 Temperature Temperature Source Pulse Rate - Lying Pulse Rate 73 71 70 Pulse Rate [Right] Pulse Rate from SpO2 Sensor 73 71 70 Respiratory Rate 28 H 16 18 Respiratory Effort / Characteristics Respiratory Depth Respiratory Pattern Blood Pressure - Lying Blood Pressure Blood Pressure [Right Arm] Blood Pressure Mean Blood Pressure Mean [Right Arm] Blood Pressure Position Blood Pressure Position [Right Arm] Pulse Oximetry 97 91 94 Oxygen Delivery Method Oxygen Flow Rate Sepsis Recent Fever Within 48 Hours Sepsis New/Unexplained Change in Mental Status Sepsis Action Taken by Nursing 06/04/21 03:12 06/04/21 04:16 Temperature Temperature Source Pulse Rate - Lying Pulse Rate Pulse Rate [Right] 69 Pulse Rate from SpO2 Sensor Respiratory Rate 18 Respiratory Effort / Characteristics Respiratory Depth Respiratory Pattern Blood Pressure - Lying Blood Pressure Blood Pressure [Right Arm] 107/52 L Blood Pressure Mean Blood Pressure Mean [Right Arm] 70 Blood Pressure Position Blood Pressure Position [Right Arm] Lying Pulse Oximetry 95 98 Oxygen Delivery Method Room Air Nasal Cannula Oxygen Flow Rate 2 Sepsis Recent Fever Within 48 Hours Sepsis New/Unexplained Change in Mental Status Sepsis Action Taken by Nursing GENERAL: alert, well appearing, well nourished, no distress, non-toxic, room malodorous from GI bleed prior to my evaluation EYE EXAM: normal conjunctiva, PERRL and EOM's grossly intact OROPHARYNX: no exudate, no erythema, lips, buccal mucosa, and tongue normal and mucous membranes are moist NECK: supple, no nuchal rigidity, no adenopathy, non-tender LUNGS: Clear to auscultation. Normal chest wall mechanics, no w/r/r HEART: no murmurs, S1 normal and S2 normal ABDOMEN: abdomen soft, non-tender, normo-active bowel sounds, no masses, no rebound or guarding. BACK: Back is symmetrical on inspection and there is no deformity, no midline tenderness, no CVA tenderness. SKIN: no rashes and no bruising UPPER EXTREMITIES: upper extremities are grossly normal. FROM, nml pulses b/l. LOWER EXTREMITIES: No pitting edema. FROM, nml pulses b/l. NEURO EXAM: Normal sensorium, cranial nerves II-XII grossly intact, normal speech, no gross weakness of arms, no gross weakness of legs. Gross sensation intact. Course Administered Medications Sodium Chloride (Nss 1000ml) 1,000 mls @ 80 mls/hr IV .[id number] [facility] Stop: 07/04/21 06:15 Last Admin: 06/04/21 06:20 Dose: 80 mls/hr Documented by: [id number] Discontinued Medications Famotidine (Famotidine 20mg/5ml Iv Push) 20 mg IV ONE STA Stop: 06/04/21 04:50 Last Admin: 06/04/21 05:00 Dose: 20 mg Documented by: [id number] Sodium Chloride (Nss 1000ml) 1,000 mls @ 250 mls/hr IV .Q4H [place] Stop: 07/04/21 02:14 Last Admin: 06/04/21 06:21 Dose: Not Given Documented by: [id number] Infusion: 06/04/21 06:19 Dose: 0 mls/hr Documented by: [id number] Admin: 06/04/21 02:46 Dose: 250 mls/hr Documented by: [id number] Ioversol (Optiray 320 100ml) 99 ml IV ONCE ONE Stop: 06/04/21 03:27 Last Admin: 06/04/21 03:32 Dose: 1 ml Documented by: [id number] Medical Decision Making Differential Diagnosis Differential diagnosis includes etiologies such as diverticulosis, AVM, coagulopathy, colitis, inflammatory bowel disease, malignancy, Aleja-Masterson tear, esophagitis, peptic ulcer disease, variceal bleed, gastritis, epistaxis, fissure, hemorrhoids, as well as others were entertained. Medical Records Attestation: I reviewed the patient's medical records. Home Medications Current Medication List: was personally reviewed by me Laboratory Data Attestation: I reviewed the patient's lab results. Result diagrams: 06/04/21 08:18 06/04/21 01:55 Lab Results 06/04/21 06/04/21 06/04/21 Range/Units 01:55 01:55 01:55 WBC 9.85 (4.8-10.8) K/uL RBC 3.28 L (4.7-6.1) M/uL Hgb 9.8 L (14.0-18.0) g/dL Hct 30.1 L (42-52) % MCV 91.8 (80-100) fL MCH 29.9 (25-34) pg MCHC 32.6 (32-36) g/dL RDW Std Deviation 45.1 (36.4-46.3) fL RDW Coeff of Jocelyn 13.3 (11.5-14.5) % Plt Count 271 (130-400) K/uL MPV 9.4 (7.4-10.4) fL PT 10.7 (9.0-12.0) Seconds INR 1.1 (0.9-1.1) APTT 21.4 (21.0-31.0) Seconds PTT Ratio 0.8 Sodium (136-145) mmol/L Potassium (3.5-5.1) mmol/L Chloride (98-107) mmol/L Carbon Dioxide (21-32) mmol/L Anion Gap (3-11) BUN (7-18) mg/dl Creatinine (0.6-1.4) mg/dl Est Cr Clr Drug Dosing Est GFR ( Amer) ml/min Est GFR (Non-Af Amer) ml/min BUN/Creatinine Ratio (10-20) Glucose (70-99) mg/dl Calcium (8.5-10.1) mg/dl Total Bilirubin (0.2-1) mg/dl AST (15-37) U/L ALT (12-78) U/L Alkaline Phosphatase (45-117) U/L Total Protein (6.4-8.2) gm/dl Albumin (3.4-5.0) gm/dl Globulin (2.5-4.0) gm/dl Albumin/Globulin Ratio (0.9-2) POC Stool Occult Blood (Negative) SARS-CoV-2, RNA, NAAT (NEGATIVE) Blood Type O Positive Antibody Screen NEGATIVE 06/04/21 06/04/21 06/04/21 Range/Units 01:55 02:05 05:21 WBC (4.8-10.8) K/uL RBC (4.7-6.1) M/uL Hgb (14.0-18.0) g/dL Hct (42-52) % MCV (80-100) fL MCH (25-34) pg MCHC (32-36) g/dL RDW Std Deviation (36.4-46.3) fL RDW Coeff of Jocelyn (11.5-14.5) % Plt Count (130-400) K/uL MPV (7.4-10.4) fL PT (9.0-12.0) Seconds INR (0.9-1.1) APTT (21.0-31.0) Seconds PTT Ratio Sodium 143 (136-145) mmol/L Potassium 4.2 (3.5-5.1) mmol/L Chloride 112 H (98-107) mmol/L Carbon Dioxide 25 (21-32) mmol/L Anion Gap 6.0 (3-11) BUN 38 H (7-18) mg/dl Creatinine 0.95 (0.6-1.4) mg/dl Est Cr Clr Drug Dosing Not Reportable Est GFR ( Amer) 84.3 ml/min Est GFR (Non-Af Amer) 72.7 ml/min BUN/Creatinine Ratio 40.1 H (10-20) Glucose 155 H (70-99) mg/dl Calcium 9.6 (8.5-10.1) mg/dl Total Bilirubin 0.3 (0.2-1) mg/dl AST 12 L (15-37) U/L ALT 16 (12-78) U/L Alkaline Phosphatase 82 (45-117) U/L Total Protein 6.2 L (6.4-8.2) gm/dl Albumin 3.1 L (3.4-5.0) gm/dl Globulin 3.1 (2.5-4.0) gm/dl Albumin/Globulin Ratio 1.0 (0.9-2) POC Stool Occult Blood Positive A (Negative) SARS-CoV-2, RNA, NAAT NEGATIVE (NEGATIVE) Blood Type Antibody Screen Imaging Data Radiologist's Impression: CT abdomen pelvis with contrast: Comparison to November 28, 2020. There is a 1 cm pulmonary nodule in the right lower lobe, unchanged. Pneumobilia post cholecystectomy. No biliary duct dilatation or choledocholithiasis is seen. The liver, pancreas, spleen, adrenals, and kidneys appear unremarkable. The aorta is fairly calcified and tortuous but nondilated. The kidneys enhance symmetrically. No mass or hydronephrosis is seen. Bowel loops are nondilated. There is severe diverticulosis throughout the colon. No focal acute diverticulitis, pneumoperitoneum, or acute inflammatory changes are seen involving the bowel. Moderate degenerative changes throughout the spine for no acute fracture or subluxation is seen. Radiologist: Kilo Recinos MD ECG Data Attestation: I personally reviewed and interpreted this ECG as follows: Indication: + weakness Rate (beats per minute): 71 Rhythm: + normal sinus ECG Intervals/blocks: + Right Bundle branch block and + Normal QT ECG [place]: + Normal ECG ST segments: + Normal ST segments MDM Narrative This is an 86-year-old male who presents due to lightheadedness, dizziness and r ecurrent GI bleed. Patient with prior similar episode, thought to be diverticular bleed, treated conservatively in recent months. Patient denies any use of NSAIDs, anticoagulation or antiplatelet therapy. Patient denies syncopal event, shortness of breath, chest pain. Patient was hemodynamically stable on arrival. Labs drawn and sent, H&H lower compared to prior at time of discharge. Patient did have 2 episodes of recurrent GI bleed here. He denied abdominal pain. Patient sent for CT and case discussed with the hospitalist. Patient made hemodynamically stable in the emergency room. At this time I suspect likely recurrent diverticular bleed. An order was placed for continuous cardiac monitoring. The monitor shows a rate of __70_ with _normal sinus_ rhythm. Impression & Plan Acute GI bleeding Discharge Plan Visit Data Chief Complaint: Rectal Bleed Stated Complaint: RECTAL BLEED ED Provider: Aria Sunshine Discharge Problem: Acute GI bleeding
[2021-06-04 02:36] LABS: Alanine Aminotransferase 16 U/L (12-78); Albumin Level 3.1 gm/dl (3.4-5.0); Aspartate Aminotransferase 12 U/L (15-37); BUN Creatinine Ratio 40.1 (10-20); Blood Urea Nitrogen 38 mg/dl (7-18); Calcium 9.6 mg/dl (8.5-10.1); Carbon Dioxide 25 mmol/L (21-32); Chloride 112 mmol/L (98-107); Est GFR (African American) 84.3 ml/min; Est GFR (Non-African American) 72.7 ml/min; Glucose 155 mg/dl (70-99); Potassium 4.2 mmol/L (3.5-5.1); Sodium 143 mmol/L (136-145)
[2021-06-04 02:39] LABS: Alkaline Phosphatase 82 U/L (45-117); Bilirubin,Total 0.3 mg/dl (0.2-1); Globulin 3.1 gm/dl (2.5-4.0); Total Protein 6.2 gm/dl (6.4-8.2)
[2021-06-04] MEDS: SODIUM CHLORIDE 0.9% 1000ML 1,000 ML IV SCH ×4 (02:46→17:40)
[2021-06-04] MEDS ORDERED: OPTIRAY 320 100ml IV ONE (03:26)
[2021-06-04] MEDS ORDERED: FAMOTIDINE 20MG/5ML IV PUSH IV STA (04:49)
[2021-06-04] MEDS ORDERED: ONDANSETRON INJ 2 MG/ML 2 ML VIAL IV PRN (06:16)
[2021-06-04] MEDS ORDERED: ACETAMINOPHEN 325 MG TAB PO PRN (06:16)
[2021-06-04] MEDS ORDERED: FLUTICASONE PROPIONATE NA SPR 16 GM BTL PRN (06:16)
[2021-06-04] MEDS ORDERED: NITROGLYCERIN SL 0.4 MG/TAB TAB SL PRN (06:16)
--- NOTE | 2021-06-04 06:59 | History and Physical Report ---
DATE OF ADMISSION: 06/04/2021. CHIEF COMPLAINT: Rectal bleed. HISTORY OF PRESENT ILLNESS: This is an 86-year-old male with past medical history significant for centrilobular emphysema, aortic valve sclerosis, BPH, bladder stones, degenerative disk disease, postherpetic neuralgia, history of tobacco abuse, history of bilateral leg edema, history of rectal bleed. Comes because of bright red blood per rectum. The patient noticed the blood from rectum at 11:00 p.m., four or five times, large amounts, which prompted him to come to the ER. He was in the hospital a couple of times in April with the same rectal bleed. Last admission, there was a plan to do colonoscopy and he was prepped, but the bleeding stopped and he refused. His hemoglobin is 9.8 today, it was 11 on 04/26/2021 at the time of discharge. Currently, he says the bleeding has stopped. There is no abdominal pain, no nausea, no fevers, no cough, no chest pain, no shortness of breath. He felt dizzy. No headache, no blurred visions, no sore throat. Appetite is okay. He is taking Naprosyn every day for his hip pain. Ambulates with a walker. Lives with his . Currently, resting comfortably and hemodynamically stable. ALLERGIES: HYDROCHLOROTHIAZIDE, MELOXICAM, GABAPENTIN. PAST MEDICAL HISTORY: As mentioned above. PAST SURGICAL HISTORY: Appendectomy, carpal tunnel surgery, colonoscopy, EGDs, ERCP, lumbosacral spinal injection, laparoscopic cholecystectomy, laparoscopic repair of right inguinal hernia, tonsillectomy, cataract surgery. MEDICATIONS: The patient is on Tylenol 325 mg p.o. q.i.d. p.r.n., vitamin D 50 mcg p.o. daily, Avodart 0.5 mg p.o. at bedtime, Flonase 2 sprays intranasal daily p.r.n., naproxen 375 mg p.o. b.i.d., Flomax 0.4 mg p.o. at bedtime. FAMILY HISTORY: Significant for brother has brain cancer; mother had cancer. SOCIAL HISTORY: , former smoker. Quit alcohol in 2019. No drug use. REVIEW OF SYSTEMS: As per HPI. Rest of review of systems is negative. PHYSICAL EXAMINATION: GENERAL: The patient is old and frail, not in acute distress. VITAL SIGNS: Temperature 36.9, pulse 69, respiratory rate 18, blood pressure 107/52, oxygen 98% on 2 liters. HEENT: Pupils equal, round and reactive to light. Oral mucosa moist. NECK: No JVD, no neck masses. CARDIOVASCULAR: S1 and S2 heard. Regular rate and rhythm. No murmur, no gallop. RESPIRATORY SYSTEM: Normal AP diameter. No accessory muscle use. No wheezing, no crackles. ABDOMEN: Soft, bowel sounds present, nontender, no distention. CENTRAL NERVOUS SYSTEM: Cranial nerves II-XII grossly intact, nonfocal. EXTREMITIES: No bilateral pedal edema present, no erythema seen. LABORATORY DATA: WBC 9.8, hemoglobin 9.8, hematocrit 30.1, platelets 271. PT 10.7, INR 1.1, APTT 21.4. Sodium 143, potassium 4.2, chloride 112, bicarbonate 25, BUN 38, creatinine 0.9, serum glucose 155, calcium 9.6, total bilirubin 0.3, AST 12, ALT 16, alkaline phosphatase 82. Stool occult blood positive. SARS-CoV-2 negative. ASSESSMENT AND PLAN: 1. This is an 86-year-old male who presents with bright red blood per rectum,hx of recurrent rectal bleed, history of diverticulosis. Hemodynamically stable. Hemoglobin is 9.8, he was 11 at the time of discharge from last admission on 04/26/2021. Per the patient, currently the bleeding is stopped. We will do H and H q. 6 hours. Blood consent obtained. We will keep him n.p.o., gentle fluids. Consult GI. Monitor in the tele floor. 2. BPH The patient to continue his home medications. 3. History of chronic hip pain: Will hold naproxen. 4. Deep venous thrombosis prophylaxis: Sequential compression devices for now. DISPOSITION: Closely monitor in the tele floor. Level 1 full code. Expect to discharge home and follow with family doctor. Job ID: [id number] [facility]
[2021-06-04 08:28] LABS: Hemoglobin 9.3 g/dL (14.0-18.0)
--- NOTE | 2021-06-04 09:08 | CT Scan Report ---
ABDOMEN AND PELVIS CT WITH IV CONTRAST CT DOSE: 348.28 mGy.cm HISTORY: GI bleed. TECHNIQUE: Multiaxial CT images of the abdomen and pelvis were performed following the use of intrave nous contrast. A dose lowering technique was utilized adhering to the principles of ALARA. COMPARISON STUDY: Abdomen and pelvis CT 04/20/2021. FINDINGS: There is again noted an 11 mm nodule within the right lower lobe. Mild elevation of the lef t hemidiaphragm, unchanged. No pneumoperitoneum. No pneumatosis. Posterior decompression within the l ower lumbar spine. Pneumobilia is again noted. Prior cholecystectomy. Calcification noted within the right hepatic lobe. The spleen and left adrenal gland are unremarkable. No hydronephrosis. A few smal l bladder calculi are again noted. Stable right renal cyst. Extensive calcified plaque within the nor mal caliber abdominal aorta. No retroperitoneal lymphadenopathy. A small diverticulum within the duod enum. Normal pancreas. There is a 1.2 cm right adrenal gland nodule, unchanged. The prostate gland is mildly enlarged. Extensive colonic diverticulosis. No evidence for acute diverticulitis. No bowel wa ll thickening or obstruction. No pelvic free fluid. The main portal vein is patent. Prior appendectom y. IMPRESSION: 1. No change in the 11 mm right lower lobe pulmonary nodule. This is consistent with a primary bronch ogenic malignancy until otherwise. 2. Prior cholecystectomy. No change in the pneumobilia. 3. Colonic diverticulosis. No evidence for acute diverticulitis. 4. No definite bowel wall thickening or obstruction. 5. Small bladder calculi, unchanged. 6. No hydronephrosis. ACT 112: Negative or not required by law. Electronically signed by: Jeff Zhu M.D. 06/04/2021 9:07 AM
[2021-06-04] MEDS: CHOLECALCIFEROL 1,000 UNITS 25 MCG TAB PO SCH (09:36)
--- NOTE | 2021-06-04 12:32 | Electrocardiogram Report ---
Test Reason : Blood Pressure : / mmHG Vent. Rate : 071 BPM Atrial Rate : 071 BPM P-R Int : 138 ms QRS Dur : 124 ms QT Int : 414 ms P-R-T Axes : 024 003 038 degrees QTc Int : 449 ms Sinus rhythm with PACs Right bundle branch block Abnormal ECG When compared with ECG of 24-APR-2021 10:24, No significant change was found Confirmed by Jonathan Wilcox ([id number]) on 06/04/2021 12:31:51 PM Referred By: REFERRED SELF Confirmed By:Javed Wilcox
[2021-06-04 15:30] LABS: Hematocrit (blood only) 25.6 % (42-52); Hemoglobin 8.3 g/dL (14.0-18.0)
[2021-06-04 20:39] LABS: Hematocrit (blood only) 25.5 % (42-52); Hemoglobin 8.3 g/dL (14.0-18.0)
[2021-06-04] MEDS ORDERED: TAMSULOSIN HCL 0.4 MG CAP PO SCH (21:00)
[2021-06-04] MEDS: LIDOCAINE 5% 1 PATCH TD SCH (21:20)
[2021-06-05] MEDS ORDERED: diphenhydrAMINE HCL 25 MG/10 ML UDC PO ONE (00:39)
[2021-06-05] MEDS: SODIUM CHLORIDE 0.9% 1000ML 1,000 ML IV SCH (05:40)
[2021-06-05 06:30] LABS: Basophils # (auto) 0.03 K/uL (0-0.2); Basophils % (auto) 0.5 %; Eosinophils # (auto) 0.33 K/uL (0-0.5); Hematocrit (blood only) 23.6 % (42-52); Hemoglobin 7.7 g/dL (14.0-18.0); Immature Granulocytes # (auto) 0.01 K/uL (0.00-0.02); Immature Granulocytes % (auto) 0.2 %; Lymphocytes # (auto) 1.09 K/uL (1.2-3.4); Lymphocytes % (auto) 16.7 %; Mean Corpuscular Hemoglobin 29.6 pg (25-34); Mean Corpuscular Hgb Conc 32.6 g/dL (32-36); Mean Corpuscular Volume 90.8 fL (80-100); Mean Platelet Volume 8.7 fL (7.4-10.4); Monocytes # (auto) 0.49 K/uL (0.11-0.59); Monocytes % (auto) 7.5 %; Neutrophils # (auto) 4.59 K/uL (1.4-6.5); Neutrophils % (auto) 70.1 %; Platelet Count 203 K/uL (130-400); RDW Coefficient of Variation 13.4 % (11.5-14.5); RDW Standard Deviation 44.4 fL (36.4-46.3); White Blood Count 6.54 K/uL (4.8-10.8)
[2021-06-05 06:50] LABS: RBC Morphology Unremarkable
[2021-06-05 07:10] LABS: BUN Creatinine Ratio 26.6 (10-20); Calcium 8.5 mg/dl (8.5-10.1); Creatinine Clr Calc Pharmacy 83.7 ml/min; Est GFR (African American) 104.1 ml/min; Est GFR (Non-African American) 89.9 ml/min; Magnesium 2.2 mg/dl (1.8-2.4); Potassium 3.7 mmol/L (3.5-5.1)
[2021-06-05] MEDS: CHOLECALCIFEROL 1,000 UNITS 25 MCG TAB PO SCH (09:36)
--- NOTE | 2021-06-05 09:58 | Hospitalist Progress Note ---
Date of Service June 05, 2021 Assessment & Plan (1) Acute blood loss anemia: (2) Lower gastrointestinal hemorrhage: (3) Left hip pain: (4) Lung nodule: Plan: Lower GI bleed / likely diverticular 1. This is an 86-year-old male who presents with bright red blood per rectum. Hx of recurrent rectal bleed, history of diverticulosis. Likely diverticular bleed. Hemodynamically stable. Hemoglobin is 9.8 on admission, he was 11 at the time of discharge from last admission on 04/26/2021. Per the patient, currently the bleeding is stopped. H and H q. 6 hours. Blood consent obtained. gentle fluids clear liquid diet, was NPO after MN Hold naproxen, avoid NSAIDs GI consulted 06/05 - Hgb 7.7 -Per GI, likely diverticular bleed, which now has stopped. Patient would like to be discharged home. GI recommends outpatient follow-up and possible outpatient endoscopy. CT Abd/ pelvis IMPRESSION: 1. No change in the 11 mm right lower lobe pulmonary nodule. This is consistent with a primary bronchogenic malignancy until otherwise. 2. Prior cholecystectomy. No change in the pneumobilia. 3. Colonic diverticulosis. No evidence for acute diverticulitis. 4. No definite bowel wall thickening or obstruction. 5. Small bladder calculi, unchanged. 6. No hydronephrosis. 2. History of chronic hip pain: Will hold naproxen. Started lidocaine patch. Tylenol. 3. Lung nodule -No change in the 11 mm right lower lobe pulmonary nodule. This is consistent with a primary bronchogenic malignancy until otherwise. - follow up as outpt 4. BPH - continue his home medications. DVT ppx: SCDs Dispo: plan to DC home Admission and Anticipated Discharge Date Admission Date: June 04, 2021 Subjective Patient seen in follow-up of lower GI bleed Uses naproxen at home for left hip pain, started lidocaine patch yesterday Hemoglobin 7.7 this a.m. Currently pt denies having any more bowel movements Reports being hungry and would like to advance his diet No chest pain, abdominal pain, shortness of breath, no nausea or vomiting Seen by GI, okay to discharge home with GI outpatient follow-up Review of Systems Review of Systems: All systems reviewed & are unremarkable except as noted in Subjective Physical Exam Physical Exam: GENERAL:elderly frail M, not in acute distress. HEENT: NC/AT, EOMI, PERRL. Oral mucosa moist. NECK: No JVD, no neck masses. CARDIOVASCULAR: S1 and S2 heard. Regular rate and rhythm. No murmur, no gallop. RESPIRATORY: Normal AP diameter. No accessory muscle use. No wheezing, no crackles. ABDOMEN: Soft, bowel sounds present, nontender, no distention. NEURO:Alert oriented answering questions appropriately. Speech fluent, no facial asymmetry, moves extremities. EXTREMITIES: No bilateral pedal edema present, no erythema seen, moves extremities. SKIN: warm, dry Results & Data Results & Data ([facility]) Vital Signs (Past 12 Hours) Vital Signs Pulse Resp BP Pulse Ox 06/05/21 05:40 64 20 126/66 93 06/05/21 00:24 71 21 125/60 95 Laboratory Results 06/05/21 06/05/21 06/04/21 Range/Units 06:17 06:17 20:31 WBC 6.54 (4.8-10.8) K/uL RBC 2.60 L (4.7-6.1) M/uL Hgb 7.7 L 8.3 L (14.0-18.0) g/dL Hct 23.6 L 25.5 L (42-52) % MCV 90.8 (80-100) fL MCH 29.6 (25-34) pg MCHC 32.6 (32-36) g/dL RDW Std Deviation 44.4 (36.4-46.3) fL RDW Coeff of Jocelyn 13.4 (11.5-14.5) % Plt Count 203 (130-400) K/uL MPV 8.7 (7.4-10.4) fL Immature Gran % (Auto) 0.2 % Neut % (Auto) 70.1 % Lymph % (Auto) 16.7 % [place] % (Auto) 7.5 % Eos % (Auto) 5.0 % Baso % (Auto) 0.5 % Neut # (Auto) 4.59 (1.4-6.5) K/uL Lymph # (Auto) 1.09 L (1.2-3.4) K/uL [place] # (Auto) 0.49 (0.11-0.59) K/uL Eos # (Auto) 0.33 (0-0.5) K/uL Baso # (Auto) 0.03 (0-0.2) K/uL Immature Gran # (Auto) 0.01 (0.00-0.02) K/uL RBC Morphology Unremarkable Sodium 145 (136-145) mmol/L Potassium 3.7 (3.5-5.1) mmol/L Chloride 116 H (98-107) mmol/L Carbon Dioxide 25 (21-32) mmol/L Anion Gap 4.0 (3-11) BUN 17 D (7-18) mg/dl Creatinine 0.63 D (0.6-1.4) mg/dl Est Cr Clr Drug Dosing 83.7 ml/min Est GFR ( Amer) 104.1 ml/min Est GFR (Non-Af Amer) 89.9 ml/min BUN/Creatinine Ratio 26.6 H (10-20) Glucose 84 (70-99) mg/dl Calcium 8.5 (8.5-10.1) mg/dl Magnesium 2.2 (1.8-2.4) mg/dl 06/04/21 Range/Units 15:18 WBC (4.8-10.8) K/uL RBC (4.7-6.1) M/uL Hgb 8.3 L (14.0-18.0) g/dL Hct 25.6 L (42-52) % MCV (80-100) fL MCH (25-34) pg MCHC (32-36) g/dL RDW Std Deviation (36.4-46.3) fL RDW Coeff of Jocelyn (11.5-14.5) % Plt Count (130-400) K/uL MPV (7.4-10.4) fL Immature Gran % (Auto) % Neut % (Auto) % Lymph % (Auto) % [place] % (Auto) % Eos % (Auto) % Baso % (Auto) % Neut # (Auto) (1.4-6.5) K/uL Lymph # (Auto) (1.2-3.4) K/uL [place] # (Auto) (0.11-0.59) K/uL Eos # (Auto) (0-0.5) K/uL Baso # (Auto) (0-0.2) K/uL Immature Gran # (Auto) (0.00-0.02) K/uL RBC Morphology Sodium (136-145) mmol/L Potassium (3.5-5.1) mmol/L Chloride (98-107) mmol/L Carbon Dioxide (21-32) mmol/L Anion Gap (3-11) BUN (7-18) mg/dl Creatinine (0.6-1.4) mg/dl Est Cr Clr Drug Dosing ml/min Est GFR ( Amer) ml/min Est GFR (Non-Af Amer) ml/min BUN/Creatinine Ratio (10-20) Glucose (70-99) mg/dl Calcium (8.5-10.1) mg/dl Magnesium (1.8-2.4) mg/dl Medications Administered Current Inpatient Medications Acetaminophen (Acetaminophen 325 Mg Tab) 650 mg PO Q4H PRN PRN Reason: Pain or Fever Stop: 07/04/21 06:15 Last Admin: 06/04/21 13:11 Dose: 650 mg Documented by: Fluticasone Propionate (Fluticasone Propionate Na Spr 16 Gm Btl) 2 sprays NA DAILY PRN PRN Reason: Congestion Stop: 07/04/21 06:15 Sodium Chloride (Nss 1000ml) 1,000 mls @ 80 mls/hr IV .[id number] [facility] Stop: 07/04/21 06:15 Last Admin: 06/05/21 05:40 Dose: 80 mls/hr Documented by: Lidocaine (Lidocaine 5% 1 Patch) 1 patch TD QAM [facility] Stop: 07/04/21 17:29 Last Admin: 06/04/21 21:20 Dose: Not Given Documented by: Miscellaneous (Dutasteride [Avodart]: Order Awaiting Action) 1 ea N/A QS [facility] Stop: 07/04/21 07:59 Last Admin: 06/05/21 01:07 Dose: Not Given Documented by: Miscellaneous (Remove Lidoderm Patch) 1 ea N/A DAILY@2100 [facility] Stop: 07/04/21 20:59 Last Admin: 06/04/21 21:21 Dose: 1 ea Documented by: Nitroglycerin (Nitroglycerin Sl 0.4 Mg/Tab Tab) 0.4 mg SL UD PRN PRN Reason: Chest Pain Stop: 07/04/21 06:15 Ondansetron HCl (Ondansetron Inj 2 Mg/Ml 2 Ml Vial) 4 mg IV Q6H PRN PRN Reason: Nausea Stop: 07/04/21 06:15 Tamsulosin HCl (Tamsulosin Hcl 0.4 Mg Cap) 0.4 mg PO HS [facility] Stop: 07/04/21 20:59 Last Admin: 06/04/21 21:25 Dose: 0.4 mg Documented by: Vitamin D (Cholecalciferol 1,000 Units 25 Mcg Tab) 2,000 units PO DAILY [facility] Stop: 07/04/21 08:59 Last Admin: 06/05/21 09:36 Dose: Not Given Documented by:
--- NOTE | 2021-06-05 12:05 | Gastrointestinal Consultation ---
Date of Consultation June 05, 2021 Assessment & Plan (1) Acute blood loss anemia: (2) Lower gastrointestinal hemorrhage: Pt is a 86 y/o male seen for anemia and rectal bleeding which had stopped since his admission to hospital. DDX: diverticular, hemorrhoidal bleeding, AVM bleeding. - Pt would like to be discharged today. Since no more active GI bleeding is present, this seems reasonable. Thus no contraindication to start his diet, DC home. Recommend outpt GI f/u to discuss indication for colonoscopy eval if pt is willing to eval source of GI bleeding. GI to sign off; pls recall prn Supervising Physician Co-Signing Physician Notes I have personally seen and examined the patient with ISMAEL Calderon. Her note reflects my exam and findings. I agree with her impression and plan. Most c/w diverticular bleeding as previously diagnosed. If rebleeds will need interventional radiology services available. Kali Armenta M.D. History of Present Illness Reason for Consultation: Rectal bleeding Requesting Physician: Dr. Evan Barksdale Attending Physician: Dr. Kali Armenta History of Present Illness Pt is a 86 y/o male w PMHx as noted below who presented w c/o BRBPR yesterday. He noticed it starting 3 days ago. Denies associated abd pain, n/v. He had similar form of rectal bleeding last month, was prepped for colonoscopy but then refused it as bleeding had stopped. Hgb on presentation was 9, today 7.7 but he denies any more rectal bleeding since he was admitted to ED. He denies any blood thinners, but takes Naproxen for hip pain. Previous endoscopies reviewed - hx of esophagitis, gastritis, int hemorrhoids, diverticulosis CT abd/pelvis w contrast 06/04/21: 1. No change in the 11 mm right lower lobe pulmonary nodule. This is consistent with a primary bronchogenic malignancy until otherwise. 2. Prior cholecystectomy. No change in the pneumobilia. 3. Colonic diverticulosis. No evidence for acute diverticulitis. 4. No definite bowel wall thickening or obstruction. 5. Small bladder calculi, unchanged. 6. No hydronephrosis. Allergies Allergy/AdvReac Type Severity Reaction Status Date / Time hydrochlorothiazide Allergy Severe PANCREATITI Verified 06/04/21 01:35 S meloxicam Allergy Mild RASH Verified 06/04/21 01:35 gabapentin AdvReac Severe Fainting Verified 06/04/21 01:35 Home Medications Medication Instructions Recorded Confirmed Type tamsulosin 0.4 mg capsule (Flomax) 0.4 mg PO HS 11/11/18 06/04/21 History dutasteride 0.5 mg capsule 0.5 mg PO HS 08/09/19 06/04/21 History (Avodart) acetaminophen 325 mg tablet 325 mg PO QID PRN 04/24/21 06/04/21 History (Tylenol) cholecalciferol (vitamin D3) 50 50 mcg PO DAILY 04/24/21 06/04/21 History mcg (2,000 unit) capsule (Vitamin D3) fluticasone propionate 50 2 spray INTRANASAL DAILY PRN 04/24/21 06/04/21 History mcg/actuation nasal spray,suspension naproxen 375 mg tablet,delayed 375 mg PO BID 06/04/21 06/04/21 History release Patient History Medical History BPH (benign prostatic hyperplasia) DDD (degenerative disc disease) History of hypertension controlled since weight loss Osteoarthritis Spinal stenosis B/L LE radiculopathy Surgical History History of appendectomy History of carpal tunnel surgery RIGHT HAND History of colonoscopy History of tonsillectomy and adenoidectomy Hx of hernia repair RIGHT INGUINAL Hx of toe surgery HAD TOENAIL REMOVED IN OFFICE 12/2018 Hx of tonsillectomy Previous back surgery Family History Mother Liver cancer Social History Smoking Status: Unknown if ever smoked Tobacco Type: Cigarettes Cigarettes Per Day: 10; Second Hand Exposure: No; Hx Alcohol Use: No Hx Substance Use: No Preferred Language: Finnish Communication Ability: Effective Visual Impairment: No Limitations Syruper Required: No Beliefs That Will Affect Care: None marital status: Current Living Situation: Spouse Current Living Situation Comment: 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 HE IS TRYING TO FIND SOMEONE Other Information That Helps Us Care for You: No Feels Safe at Home: Yes Assistive Devices: Cane Review of Systems Review of Systems: All systems reviewed & are unremarkable except as noted in HPI & below Physical Exam Constitutional: WD/WN, vitals as above well groomed, cooperative and comfo rtable Eyes: PERRL, conjunctivae normal, anicteric sclerae ENMT: external ear and nose normal, oropharynx normal Respiratory: normal respiratory effort, lungs clear to auscultation Cardiovascular: RRR, no murmur, no edema Gastrointestinal (Abdomen): normal bowel sounds, soft, nontender, no hepatosplenomegaly Skin: no rashes, warm and dry no jaundice Psychiatric: A+Ox3, euthymic affect Lymphatic: no lymphedema Results & Data ([facility]) Vital Signs (Past 12 Hours) Vital Signs Pulse Resp BP Pulse Ox 06/05/21 05:40 64 20 126/66 93 06/05/21 00:24 71 21 125/60 95
[2021-06-05] MEDS: LIDOCAINE 5% 1 PATCH TD SCH (12:14)
--- NOTE | 2021-06-05 14:26 | Discharge Summary ---
Date of Service June 05, 2021 Admission HPI Per Admitting Provider This is an 86-year-old male with past medical history significant for centrilobular emphysema, aortic valve sclerosis, BPH, bladder stones, degenerative disk disease, postherpetic neuralgia, history of tobacco abuse, history of bilateral leg edema, history of rectal bleed. Comes because of bright red blood per rectum. The patient noticed the blood from rectum at 11:00 p.m., four or five times, large amounts, which prompted him to come to the ER. He was in the hospital a couple of times in April with the same rectal bleed. Last admission, there was a plan to do colonoscopy and he was prepped, but the bleeding stopped and he refused. His hemoglobin is 9.8 today, it was 11 on 04/26/2021 at the time of discharge. Currently, he says the bleeding has stopped. There is no abdominal pain, no nausea, no fevers, no cough, no chest pain, no shortness of breath. He felt dizzy. No headache, no blurred visions, no sore throat. Appetite is okay. He is taking Naprosyn every day for his hip pain. Ambulates with a walker. Lives with his . Currently, resting comfortably and hemodynamically stable. Admission Exam Per Admitting Provider GENERAL: The patient is old and frail, not in acute distress. VITAL SIGNS: Temperature 36.9, pulse 69, respiratory rate 18, blood pressure 107/52, oxygen 98% on 2 liters. HEENT: Pupils equal, round and reactive to light. Oral mucosa moist. NECK: No JVD, no neck masses. CARDIOVASCULAR: S1 and S2 heard. Regular rate and rhythm. No murmur, no gallop. RESPIRATORY SYSTEM: Normal AP diameter. No accessory muscle use. No wheezing, no crackles. ABDOMEN: Soft, bowel sounds present, nontender, no distention. CENTRAL NERVOUS SYSTEM: Cranial nerves II-XII grossly intact, nonfocal. EXTREMITIES: No bilateral pedal edema present, no erythema seen. Principal Diagnosis Lower GI bleed Anemia Discharge Exam GENERAL:elderly frail M, not in acute distress. HEENT: NC/AT, EOMI, PERRL. Oral mucosa moist. NECK: No JVD, no neck masses. CARDIOVASCULAR: S1 and S2 heard. Regular rate and rhythm. No murmur, no gallop. RESPIRATORY: Normal AP diameter. No accessory muscle use. No wheezing, no crackles. ABDOMEN: Soft, bowel sounds present, nontender, no distention. NEURO:Alert oriented answering questions appropriately. Speech fluent, no facial asymmetry, moves extremities. EXTREMITIES: No bilateral pedal edema present, no erythema seen, moves extremities. SKIN: warm, dry Discharge Data Allergies Allergy/AdvReac Type Severity Reaction Status Date / Time hydrochlorothiazide Allergy Severe PANCREATITI Verified 06/04/21 01:35 S meloxicam Allergy Mild RASH Verified 06/04/21 01:35 gabapentin AdvReac Severe Fainting Verified 06/04/21 01:35 Consultations 06/04/21 05:18 ED Decision to Admit Stat 06/04/21 08:00 Consult Gastroenterology Routine Ordered Studies 06/04/21 02:04 CT abd pelvis IV con only Urgent IMPRESSION: 1. No change in the 11 mm right lower lobe pulmonary nodule. This is consistent with a primary bronchogenic malignancy until otherwise. 2. Prior cholecystectomy. No change in the pneumobilia. 3. Colonic diverticulosis. No evidence for acute diverticulitis. 4. No definite bowel wall thickening or obstruction. 5. Small bladder calculi, unchanged. 6. No hydronephrosis. Hospital Course (1) Acute blood loss anemia: (2) Lower gastrointestinal hemorrhage: (3) Left hip pain: (4) Lung nodule: Lower GI bleed / likely diverticular 1. This is an 86-year-old male who presents with bright red blood per rectum. Hx of recurrent rectal bleed, history of diverticulosis. Likely diverticular bleed. Hemodynamically stable. Hemoglobin is 9.8 on admission, he was 11 at the time of discharge from last admission on 04/26/2021. Per the patient, currently the bleeding is stopped. H and H q. 6 hours. Blood consent obtained. gentle fluids clear liquid diet, was NPO after MN Hold naproxen, avoid NSAIDs GI consulted 06/05 - Hgb 7.7 -Per GI, likely diverticular bleed, which now has stopped. Patient would like to be discharged home. GI recommends outpatient follow-up and possible outpatient endoscopy. CT Abd/ pelvis IMPRESSION: 1. No change in the 11 mm right lower lobe pulmonary nodule. This is consistent with a primary bronchogenic malignancy until otherwise. 2. Prior cholecystectomy. No change in the pneumobilia. 3. Colonic diverticulosis. No evidence for acute diverticulitis. 4. No definite bowel wall thickening or obstruction. 5. Small bladder calculi, unchanged. 6. No hydronephrosis. 2. History of chronic hip pain: Will hold naproxen. Started lidocaine patch. Tylenol. 3. Lung nodule -No change in the 11 mm right lower lobe pulmonary nodule. This is consistent with a primary bronchogenic malignancy until otherwise. - follow up as outpt 4. BPH - continue his home medications. Dispo: plan to DC home Total Time Total Time Spent Total Time Spent (In Minutes): 35 Discharge Plan Discharge Items Patient Disposition: Home - Self-Care Reason For Visit: RECTAL BLEED Discharge Diagnosis: Lower GI bleed Anemia Activity: Per Instructions section Non-emergency contact: Primary Care Provider and Dye Colorist Dyer Call non-emergency contact if: you have any medication questions and your symptoms worsen Follow-up/Referrals: Ollie Wagner PA-C [Primary Care Provider] - Diet: Regular Addtl Attending Provider Instructions: Follow-up with your primary care doctor within 1 to 2 weeks. Follow-up with gastroenterology. You will be contacted about the appointment. For your pain, it is recommended that you take Tylenol (up to 3000 mg a day), and use a lidocaine patch for your hip. NSAIDs such as naproxen that you have been taking, can make bleeding worse. Therefore, you should be avoiding naproxen, and medications such as Aleve, Motrin, or ibuprofen. A prescription for lidocaine patch was sent to your pharmacy. You can also obtain these [id number], often under the name of Salonpas. Pending Studies at Discharge: No Stand-Alone Forms: My [facility] General Blood, Smoking Cessation Medications and DC Order Prescriptions: New lidocaine 5 % Adhesive Patch,Medicated 1 patch transdermal QAM Qty: 15 RF: 0 Continued tamsulosin [Flomax] 0.4 mg Capsule 0.4 mg PO HS RF: 0 dutasteride [Avodart] 0.5 mg Capsule 0.5 mg PO HS RF: 0 acetaminophen [Tylenol] 325 mg Tablet 325 mg PO QID PRN (Reason: Pain) RF: 0 fluticasone propionate 50 mcg/actuation spray,suspension 2 spray INTRANASAL DAILY PRN (Reason: Congestion) RF: 0 cholecalciferol (vitamin D3) [Vitamin D3] 50 mcg (2,000 unit) Capsule 50 mcg PO DAILY RF: 0 Discontinued naproxen 375 mg tablet,delayed release (DR/EC) 375 mg PO BID RF: 0 Discharge Orders: Discharge Order (Routine); Ordered 06/05/21 Ordered By: Evan Barksdale Admission Data Admit Date/Time: 06/04/21 05:56 Attending Provider: Evan Barksdale Admit Provider: Juan Killian Primary Care Provider: Ollie Wagner Other Providers: Juan Killian ; Abdiel Ochoa
--- NOTE | 2021-06-05 15:00 | Communication Note ---
Date of Service: June 05, 2021 Code 44 attestation She is an 86-year-old male was admitted with rectal bleed and was appropriately managed by gastroenterology service and attending physician. He was appropriately discharged this afternoon. Chart reviewed. By CMS guidelines, a determination that the admission or continued stay is not medically necessary has been made by a member of the UR committee and a physician for this hospital stay, therefore a Code 44 will be completed and the Inpatient admission will be changed to outpatient. Dr Danny Alexander Member UR Committee
== END 2021-06-05 15:25 | disposition home or self-care (01) ==
LOC: ED 01:01 → INTOOBSV 05:56 → EDINP 05:56
DX: K92.2 Gastrointestinal hemorrhage, unspecified; J43.2 Centrilobular emphysema; Z88.8 Allergy status to other drugs, medicaments and biological substances; R91.1 Solitary pulmonary nodule; Z20.822 Contact with and (suspected) exposure to COVID-19; N40.0 Benign prostatic hyperplasia without lower urinary tract symptoms; K57.30 Diverticulosis of large intestine without perforation or abscess without bleeding; M25.552 Pain in left hip; D62 Acute posthemorrhagic anemia; Z87.891 Personal history of nicotine dependence

== ENCOUNTER 2022-05-03 13:12 | Inpatient (IN) ==
[2022-05-03] MEDS ORDERED: HYDROmorphone INJ 0.5 MG/0.5 ML SYR IM STA (13:35)
[2022-05-03] MEDS ORDERED: SODIUM CHLORIDE 0.9% 1000ML 1,000 ML IV ONE ×2 (13:35→16:56)
--- NOTE | 2022-05-03 13:41 | Emergency Department Note ---
Impression & Plan Rhabdomyolysis, Fall, Skin tear of left hand without complication, Dehydration, YULISSA (acute kidney injury) ED Provider Note Name: MARILUZ ANAYA Age: 86 Sex: M Arrives Via: Ambulance Informant: Patient and EMS ED Provider: Dominic Rodríguez MD Chief Complaint: Fall Impression: As per impressions above Medical Decision Making: Pleasant 86-year-old gentleman with a extensive past medical history arrives following a reported trip and fall last evening. He was too weak to get up and has history of stroke thus was unable to call 911. Patient laid on the ground for roughly 12 hours. Arrives via EMS. Patient has extensive bruising and is covered in blood. He has a skin tear of the left hand which is quite matted at this point and I do not feel is repairable. He has extensive bruising of his face and his chest wall. CT of the head and neck are negative. Chest x- ray is, hand x-ray, pelvis x-ray is unremarkable. Laboratory findings are consistent with acute kidney injury, dehydration, rhabdomyolysis. He does have a significantly white blood cell count but is afebrile and I do not see any clear evidence of infection. He was treated for infection and blood cultures/lactate were obtained. A lactate is elevated consistent with his rhabdomyolysis though. Procalcitonin is also elevated but this too could be secondary to significant rhabdo. Patient was kept comfortable with IV narcotics. Vitals are stable. Patient is agreeable to hospitalization. Of note patient believes he had a tetanus shot in the last few years Prior Medical Record and Triage/Nursing Notes reviewed by Me Additional history obtained from chart Differentials:Infection, dehydration, metabolic abnormality, hypo/hyperglycemia , electrolyte disturbance, anemia, hypoxia, cardiac sources, intracerebral event, toxicologic, neurologic, as well as other pathologies. Vital Signs: reviewed and remarkable for no significant abnormalities Interventions: Normal saline bolus, cefepime IV, Dilaudid IV x3 Labs:Reviewed and remarkable for extensive lab abnormalities consistent with YULISSA and rhabdomyolysis along with elevated white blood cell count, elevated procalcitonin and elevated lactate Imaging:CT of the head and neck no acute findings per radiology. Chest x-ray, left hand x-ray, pelvis x-ray as per ideology no acute findings EKG:Per My Interpretation: Indication Weakness: NSR 95 bpm, qtc 480 with RBBB poor baseline. No Ectopy. No Ischemia. Compared to EKG 06/04/21, no signifi cant changes. Cardiac/Tele Monitoring: Cardiac Monitoring: An Order was placed for continuous cardiac monitoring. The monitor shows a rate of 90 with a normal sinus rhythm. Consults:Dr Braulio Cisneros Hospitalist Plan: Disposition:Hospitalization. Condition: Good History of Present Illness:86-year-old gentleman arrives for evaluation of fall. Patient was with last night around midnight when he tripped and fell. He has been laying on the ground for the last 12 hours. His previously had a stroke thus was unable to call 911. His son found him this late morning and called 911. Patient notes left-sided headache, neck pain, bilateral shoulder pain, left hand pain and diffuse body aches. Denies any frequent falls. EMS gave him 200 mL of normal saline in route before the IV blew. He notes diffuse severe pain and is asking for pain medications. He ang es any nausea, vomiting, chest pain, shortness of breath, back pain, abdominal pain or other concerning signs or symptoms. He is not on any blood thinners. ROS: See above HPI for pertinent positives & negatives. A total of 10 systems reviewed and were otherwise negative. Past Medical History:See Below Past Surgical History:See Below Family History:See Below Social History:See Below Home Medications:See Below Allergies:See Below Vitals:Blood Pressure: 128/73, Pulse 88, RR 20, T 36.8C, O2 94% on RA Physical Exam: GENERAL: Patient is unwell appearing and in moderate distress. HEAD: Bruising/ecchymosis left side of face and periorbital EYES: No scleral icterus, unremarkable pupils. ENT: Mucous membranes dry, no nasal congestion. NECK: No masses appreciated, nomeningismus, trachea is midline. No cervical TTP RESPIRATORY: No dyspnea. Clear to auscultation and equal bilaterally. No wheeze, no rhonchi. CARDIOVASCULAR: Regular rate and rhythm.No murmurs, rubs, gallops appreciated. GASTROINTESTINAL: Abdomen soft, non-tender, no peritonitis.Bowel sounds positive.No masses appreciated. BACK: No midline tenderness, no CVA tenderness EXTREMITIES: Normal motion all extremities, no cyanosis, no edema. NEUROLOGIC: Alert and oriented, no acute motor or sensory deficits, no focal weakness, cranial nerves grossly intact. SKIN: Degloving skin tear over top of left hand. No rash, no jaundice, no diaphoresis. Extensive bruising/ecchymosis over left anterior shoulder, right lower chest. PSYCH: Appropriate GCS: 15 ED Course: Times/Reassessments: Multiple repeat evaluation patient feeling much better after IV narcotics and fluids. He is agreeable to hospitalization. Dominic Rodríguez MD Past Med/Surg History Medical History (Updated 05/03/22 @ 20:01 by Dominic Rodríguez MD) Acute pancreatitis Anemia Aortic valve sclerosis Bladder stones BPH (benign prostatic hyperplasia) Centrilobular emphysema DDD (degenerative disc disease) Hearing deficit History of colon polyps History of COVID-19 09/11/21 @ [facility] (asymptomatic, tested prior to procedure)--no issues History of hypertension controlled since weight loss Left hip pain Lung nodule Mandibular fracture Osteoarthritis Spinal stenosis B/L LE radiculopathy Surgical History History of appendectomy History of carpal tunnel surgery RIGHT HAND History of colonoscopy History of ERCP (~11/30/20) History of esophagogastroduodenoscopy (EGD) last 09/29/21 @ [place] History of tonsillectomy and adenoidectomy Hx of hernia repair RIGHT INGUINAL Hx of toe surgery HAD TOENAIL REMOVED IN OFFICE 12/2018 Hx of tonsillectomy Previous back surgery Family History Mother Liver cancer Social History Smoking Status: Never smoker Tobacco Type: Cigarettes Second Hand Exposure: No; Hx Alcohol Use: Yes Alcohol type: wine Hx Substance Use: No Preferred Language: Mauritian Communication Ability: Effective Visual Impairment: No Limitations 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 HE IS TRYING TO FIND SOMEONE Feels Safe at Home: Yes Assistive Devices: Cane, Denture - Upper and Glasses Allergies Allergies Allergy/AdvReac Type Severity Reaction Status Date / Time hydrochlorothiazide Allergy Severe PANCREATITI Verified 05/03/22 16:25 S morphine Allergy Severe convulsions Verified 05/03/22 16:25 meloxicam Allergy Mild RASH Verified 05/03/22 16:25 gabapentin AdvReac Severe Fainting Verified 05/03/22 16:25 Home Meds Home Medications Medication Instructions Recorded Confirmed tamsulosin 0.4 mg capsule (Flomax) 0.4 mg PO HS 11/11/18 05/03/22 dutasteride 0.5 mg capsule 0.5 mg PO HS 08/09/19 05/03/22 (Avodart) cholecalciferol (vitamin D3) 50 50 mcg PO HS 04/24/21 05/03/22 mcg (2,000 unit) capsule (Vitamin D3) tramadol 50 mg tablet 50 mg PO Q8 PRN Pain, Moderate 05/03/22 05/03/22 Previous Rx's Medication Instructions Recorded pantoprazole 40 mg tablet,delayed 40 mg PO DAILY gastric erosions 12/09/21 release (Protonix) #30 tabs Results & Data (ED) Vital Signs Vital Signs - 24 hr 05/03/22 13:28 05/03/22 13:28 05/03/22 14:30 Pulse Rate 88 86 84 Pulse Rate from SpO2 Sensor Respiratory Rate 20 30 H 22 Respiratory Depth Normal Respiratory Pattern Regular Blood Pressure 128/73 Blood Pressure Mean 91 Pulse Oximetry 94 94 Oxygen Delivery Method Room Air Sepsis Recent Fever Within 48 Hours No Sepsis New/Unexplained Change in Mental Status N/A Sepsis Action Taken by Nursing No Action Required 05/03/22 15:00 05/03/22 15:57 05/03/22 17:30 Pulse Rate 85 78 81 Pulse Rate from SpO2 Sensor 79 Respiratory Rate 20 22 16 Respiratory Depth Respiratory Pattern Blood Pressure 143/84 H 137/65 Blood Pressure Mean 103 89 Pulse Oximetry 91 94 Oxygen Delivery Method Sepsis Recent Fever Within 48 Hours Sepsis New/Unexplained Change in Mental Status Sepsis Action Taken by Nursing 05/03/22 18:00 Pulse Rate 77 Pulse Rate from SpO2 Sensor Respiratory Rate 16 Respiratory Depth Respiratory Pattern Blood Pressure 138/76 Blood Pressure Mean 96 Pulse Oximetry 93 Oxygen Delivery Method Sepsis Recent Fever Within 48 Hours Sepsis New/Unexplained Change in Mental Status Sepsis Action Taken by Nursing Laboratory Data Result diagrams: 05/03/22 14:37 05/03/22 14:37 Lab Results 05/03/22 05/03/22 05/03/22 Range/Units 14:30 14:37 14:37 WBC (4.8-10.8) K/ul RBC (4.63-6.08) M/uL Hgb (14.0-18.0) g/dl Hct (40.1-51.0) % MCV (80.0-100.0) fL MCH (25.0-34.0) pg MCHC (32.0-36.0) g/dL RDW Std Deviation (36.4-46.3) fL RDW Coeff of Jocelyn (11.5-14.5) % Plt Count (130-400) K/uL MPV (9.4-12.4) fL Immature Gran % (Auto) % Neut % (Auto) % Lymph % (Auto) % [place] % (Auto) % Eos % (Auto) % Baso % (Auto) % Neut # (Auto) (1.4-6.5) K/uL Lymph # (Auto) (1.2-3.4) K/uL [place] # (Auto) (0.24-0.82) K/uL Eos # (Auto) (0-0.50) K/uL Baso # (Auto) (0-0.2) K/uL Immature Gran # (Auto) (0.00-0.02) K/uL Toxic Vacuolation PT 11.9 (9.0-12.0) Seconds INR 1.1 (0.9-1.1) APTT 28.8 (21.0-31.0) Seconds PTT Ratio 1.0 Sodium 144 (136-145) mmol/L Potassium 4.0 (3.5-5.1) mmol/L Chloride 107 (98-107) mmol/L Carbon Dioxide 23 (21-32) mmol/L Anion Gap 14 H (3-11) BUN 29 H (6-23) mg/dl Creatinine 2.23 H (0.6-1.4) mg/dl Est Cr Clr Drug Dosing 21.2 ml/min Est GFR ( Amer) 30.0 ml/min Est GFR (Non-Af Amer) 25.9 ml/min BUN/Creatinine Ratio 13.0 (10-20) Glucose 120 H (70-99(Fasting)) mg/dl Lactate (0.4-2.0) mmol/L Calcium 10.5 H (8.5-10.1) mg/dl Magnesium 2.7 H (1.7-2.4) mg/dl Total Bilirubin 1.7 H (0.2-1.0) mg/dl Direct Bilirubin 0.3 H (0-0.2) mg/dl AST 125 H (13-39) U/L ALT 57 H (7-52) U/L Alkaline Phosphatase 102 (34-104) U/L Total Creatine Kinase 4614 H (30-223) U/L Troponin I High Sens 1657.2 H* (0-20) pg/ml Total Protein 7.5 (6.0-8.3) gm/dl Albumin 4.1 (3.4-5.0) gm/dl Lipase 20 (11-82) U/L Procalcitonin (0-0.5) ng/ml Urine Color Urine Appearance (Clear) Urine pH (4.5-7.5) Ur Specific [place] (1.000-1.030) Urine Protein (Negative) Urine Glucose (UA) (Negative) Urine Ketones (Negative) Urine Blood (Negative) Urine Nitrite (Negative) Urine Bilirubin (Negative) Urine Urobilinogen (Negative) Ur Leukocyte Esterase (Negative) Urine WBC (Auto) (0-5) /hpf Urine RBC (Auto) (0-4) /hpf U Hyaline Cast (Auto) (0-5) /lpf U Epithel Cells (Auto) (0-5) /lpf Urine Bacteria (Auto) (Negative) Calcium Oxalate Crystal (None Prsent) Granular Casts (0) /lpf Urine Yeast SARS-CoV-2, RNA, NAAT NEGATIVE (NEGATIVE) 05/03/22 05/03/22 05/03/22 Range/Units 14:37 14:37 16:00 WBC 27.85 H (4.8-10.8) K/ul RBC 5.48 (4.63-6.08) M/uL Hgb 17.0 (14.0-18.0) g/dl Hct 50.2 (40.1-51.0) % MCV 91.6 (80.0-100.0) fL MCH 31.0 (25.0-34.0) pg MCHC 33.9 (32.0-36.0) g/dL RDW Std Deviation 45.9 (36.4-46.3) fL RDW Coeff of Jocelyn 13.7 (11.5-14.5) % Plt Count 247 (130-400) K/uL MPV 9.4 (9.4-12.4) fL Immature Gran % (Auto) 0.9 % Neut % (Auto) 91.5 % Lymph % (Auto) 1.5 % [place] % (Auto) 5.8 % Eos % (Auto) 0.1 % Baso % (Auto) 0.2 % Neut # (Auto) 25.50 H (1.4-6.5) K/uL Lymph # (Auto) 0.41 L (1.2-3.4) K/uL [place] # (Auto) 1.61 H (0.24-0.82) K/uL Eos # (Auto) 0.03 (0-0.50) K/uL Baso # (Auto) 0.05 (0-0.2) K/uL Immature Gran # (Auto) 0.25 H (0.00-0.02) K/uL Toxic Vacuolation 1+ PT (9.0-12.0) Seconds INR (0.9-1.1) APTT (21.0-31.0) Seconds PTT Ratio Sodium (136-145) mmol/L Potassium (3.5-5.1) mmol/L Chloride (98-107) mmol/L Carbon Dioxide (21-32) mmol/L Anion Gap (3-11) BUN (6-23) mg/dl Creatinine (0.6-1.4) mg/dl Est Cr Clr Drug Dosing ml/min Est GFR ( Amer) ml/min Est GFR (Non-Af Amer) ml/min BUN/Creatinine Ratio (10-20) Glucose (70-99(Fasting)) mg/dl Lactate 2.7 H* (0.4-2.0) mmol/L Calcium (8.5-10.1) mg/dl Magnesium (1.7-2.4) mg/dl Total Bilirubin (0.2-1.0) mg/dl Direct Bilirubin (0-0.2) mg/dl AST (13-39) U/L ALT (7-52) U/L Alkaline Phosphatase (34-104) U/L Total Creatine Kinase (30-223) U/L Troponin I High Sens (0-20) pg/ml Total Protein (6.0-8.3) gm/dl Albumin (3.4-5.0) gm/dl Lipase (11-82) U/L Procalcitonin 22.68 H (0-0.5) ng/ml Urine Color Urine Appearance (Clear) Urine pH (4.5-7.5) Ur Specific [place] (1.000-1.030) Urine Protein (Negative) Urine Glucose (UA) (Negative) Urine Ketones (Negative) Urine Blood (Negative) Urine Nitrite (Negative) Urine Bilirubin (Negative) Urine Urobilinogen (Negative) Ur Leukocyte Esterase (Negative) Urine WBC (Auto) (0-5) /hpf Urine RBC (Auto) (0-4) /hpf U Hyaline Cast (Auto) (0-5) /lpf U Epithel Cells (Auto) (0-5) /lpf Urine Bacteria (Auto) (Negative) Calcium Oxalate Crystal (None Prsent) Granular Casts (0) /lpf Urine Yeast SARS-CoV-2, RNA, NAAT (NEGATIVE) 05/03/22 05/03/22 05/03/22 Range/Units 16:30 18:31 18:31 WBC (4.8-10.8) K/ul RBC (4.63-6.08) M/uL Hgb (14.0-18.0) g/dl Hct (40.1-51.0) % MCV (80.0-100.0) fL MCH (25.0-34.0) pg MCHC (32.0-36.0) g/dL RDW Std Deviation (36.4-46.3) fL RDW Coeff of Jocelyn (11.5-14.5) % Plt Count (130-400) K/uL MPV (9.4-12.4) fL Immature Gran % (Auto) % Neut % (Auto) % Lymph % (Auto) % [place] % (Auto) % Eos % (Auto) % Baso % (Auto) % Neut # (Auto) (1.4-6.5) K/uL Lymph # (Auto) (1.2-3.4) K/uL [place] # (Auto) (0.24-0.82) K/uL Eos # (Auto) (0-0.50) K/uL Baso # (Auto) (0-0.2) K/uL Immature Gran # (Auto) (0.00-0.02) K/uL Toxic Vacuolation PT (9.0-12.0) Seconds INR (0.9-1.1) APTT (21.0-31.0) Seconds PTT Ratio Sodium (136-145) mmol/L Potassium (3.5-5.1) mmol/L Chloride (98-107) mmol/L Carbon Dioxide (21-32) mmol/L Anion Gap (3-11) BUN (6-23) mg/dl Creatinine (0.6-1.4) mg/dl Est Cr Clr Drug Dosing ml/min Est GFR ( Amer) ml/min Est GFR (Non-Af Amer) ml/min BUN/Creatinine Ratio (10-20) Glucose (70-99(Fasting)) mg/dl Lactate 1.9 (0.4-2.0) mmol/L Calcium (8.5-10.1) mg/dl Magnesium (1.7-2.4) mg/dl Total Bilirubin (0.2-1.0) mg/dl Direct Bilirubin (0-0.2) mg/dl AST (13-39) U/L ALT (7-52) U/L Alkaline Phosphatase (34-104) U/L Total Creatine Kinase (30-223) U/L Troponin I High Sens 1290.8 H* D (0-20) pg/ml Total Protein (6.0-8.3) gm/dl Albumin (3.4-5.0) gm/dl Lipase (11-82) U/L Procalcitonin (0-0.5) ng/ml Urine Color Dark Yellow Urine Appearance Cloudy A (Clear) Urine pH 5.0 (4.5-7.5) Ur Specific [place] 1.015 (1.000-1.030) Urine Protein 2+ H (Negative) Urine Glucose (UA) Negative (Negative) Urine Ketones Trace H (Negative) Urine Blood 3+ H (Negative) Urine Nitrite Negative (Negative) Urine Bilirubin Negative (Negative) Urine Urobilinogen Negative (Negative) Ur Leukocyte Esterase Trace H (Negative) Urine WBC (Auto) 5-10 H (0-5) /hpf Urine RBC (Auto) 0-4 (0-4) /hpf U Hyaline Cast (Auto) >30 H (0-5) /lpf U Epithel Cells (Auto) 20-30 H (0-5) /lpf Urine Bacteria (Auto) Negative (Negative) Calcium Oxalate Crystal Present A (None Prsent) Granular Casts 10-20 H (0) /lpf Urine Yeast Not Reportable SARS-CoV-2, RNA, NAAT (NEGATIVE) Administered Medications Acetaminophen (Acetaminophen 325 Mg Tab) 650 mg PO Q8H LOUIS Stop: 06/02/22 18:29 Last Admin: 05/03/22 19:38 Dose: 650 mg Documented By: MYRIAM Sodium Chloride (Nss 1000ml) 1,000 mls @ 80 mls/hr IV .[id number] LOUIS Stop: 05/04/22 18:59 Last Admin: 05/03/22 19:38 Dose: 80 mls/hr Documented By: MYRIAM Discontinued Medications Hydromorphone HCl (Hydromorphone Inj 0.5 Mg/0.5 Ml Syr) 0.5 mg IM NOW STA Stop: 05/03/22 13:36 Last Admin: 05/03/22 13:41 Dose: 0.5 mg Documented By: GEORGIA Hydromorphone HCl (Hydromorphone Inj 0.5 Mg/0.5 Ml Syr) 0.5 mg IV NOW STA Stop: 05/03/22 14:57 Last Admin: 05/03/22 15:01 Dose: 0.5 mg Documented By: GE[place] Hydromorphone HCl (Hydromorphone Inj 0.5 Mg/0.5 Ml Syr) 0.5 mg IV Q15M PRN PRN Reason: Pain Stop: 05/17/22 14:55 Last Admin: 05/03/22 18:32 Dose: 0.5 mg Documented By: Admin: 05/03/22 16:50 Dose: 0.5 mg Documented By: GE[place] Sodium Chloride (Nss 1000ml) 1,000 mls @ 999 mls/hr IV .Q1H1M ONE Stop: 05/03/22 14:35 Last Infusion: 05/03/22 17:45 Dose: 0 mls/hr Documented By: Admin: 05/03/22 14:23 Dose: 999 mls/hr Documented By: GE[place] Cefepime HCl (Maxipime) 2,000 mg in 20 mls @ 5 mls/min IV NOW STA; Protocol Stop: 05/03/22 15:57 Last Admin: 05/03/22 16:32 Dose: 5 mls/min Documented By: GE[place] Sodium Chloride (Nss 1000ml) 1,000 mls @ 999 mls/hr IV .Q1H1M ONE Stop: 05/03/22 17:56 Last Infusion: 05/03/22 19:04 Dose: 0 mls/hr Documented By: Admin: 05/03/22 17:46 Dose: 999 mls/hr Documented By: MILES Imaging Data Radiologist's Impression: Cervical Spine CT 05/03/22 13:35 CT OF THE CERVICAL SPINE WITHOUT CONTRAST CLINICAL HISTORY: fall, head injury COMPARISON STUDY: Cervical spine CT June 09, 2018. TECHNIQUE: Helical axial images of the cervical spine were obtained without IV contrast. Sagittal and coronal reconstructions were viewed. Automated exposure control was utilized for the study. A dose lowering technique was utilized adhering to the principles of ALARA. FINDINGS: Alignment of the cervical spine is anatomic. Vertebral body heights are maintained. No acute cervical spine fracture or subluxation is present. There is no prevertebral edema. Facet joints are intact. The left mandibular condyle is subluxed. This may be chronic given fracture shown on CT of June 09, 2018. Left neck stranding is noted. Moderate multilevel degenerative changes are present. IMPRESSION: 1. No acute cervical spine fracture or subluxation. 2. Mild left neck stranding suggestive of a contusion. 3. Old, healed fracture deformity of the left mandibular condyle which is subluxed, likely chronic. ACT 112: Negative or not required by law. Electronically signed by: Keshawn Mckeon M.D. 05/03/2022 3:52 PM Hand X-Ray 05/03/22 13:35 LEFT HAND 3 VIEWS CLINICAL HISTORY: Fall with left hand injury. FINDINGS: 3 views of the left hand were obtained. No prior studies are available for comparison at the time of dictation. The examination is degraded by in ability to properly position the patient. The skeletal structures are osteopenic. No acute fracture is identified. There is degenerative narrowing at the radiocarpal articulation. Moderate osteoarthritic changes ia seen at the first carpometacarpal joint. Osteoarthritic change is also seen at the first metacarpophalangeal joint and throughout the interphalangeal joints, distal greater than proximal. There is erosive osteoarthritis of the second through fifth DIPs. Soft tissue swelling is seen throughout the wrist and hand. There is atherosclerotic calcification of the regional arteries. IMPRESSION: 1. Soft tissue swelling with no acute fracture identified. If there is clinical concern for occult fracture consider short-term radiographic follow-up. 2. Osteopenia and arthritic change as above. Electronically signed by: Javid Mendoza M.D. 05/03/2022 4:[address] 05/03/22 13:35 CT head/brain wo con CLINICAL HISTORY: 86 years-old Male with fall, head injury. Acute head trauma status post fall TECHNIQUE: Multiple axial CT images of the head were obtained without contrast. A dose lowering technique was utilized adhering to the principles of ALARA. CT DOSE: 823.94 mGycm COMPARISON: CT cervical spine of same day, head CT 06/20/2020 FINDINGS: No acute intracranial hemorrhage, midline shift, intracranial mass, hydrocephalus, territorial ischemia or abnormal extra-axial collection. Age- related involutional changes. White matter hypodensities suggest chronic microvascular ischemic disease. Cerebral vascular calcifications. The calvarium is intact. Prior bilateral lens repair. Small left cheek cont usion. The paranasal sinuses, mastoid air cells, and middle ear cavities are clear. IMPRESSION: No acute intracranial abnormality or calvarial fracture. ACT 112: Negative or not required by law. The above report was generated using voice recognition software. It may contain grammatical, syntax or spelling errors. Electronically signed by: Roldan Gore M.D. 05/03/2022 3:36 PM Pelvis X-Ray 05/03/22 13:35 XR pelvis 1-2V routine CLINICAL HISTORY: fall TECHNIQUE: A single frontal view of the pelvis was obtained. Comparison: Comparison is made to hip and pelvis radiograph 08/11/2019 FINDINGS: Calcific densities are noted in the pelvis, favored to represent phleboliths and prostatic calcifications. Degenerative changes are seen in the hip joints and lumbar spine. Bones are demineralized. No soft tissue abnormality is seen. IMPRESSION: Degenerative changes without evidence of acute abnormality. ACT 112: Negative or not required by law. Electronically signed by: aTm De La Rosa M.D. 05/03/2022 3:47 PM Chest X-Ray 05/03/22 13:37 XR chest 1V portable CLINICAL HISTORY: fall, weakness COMPARISON STUDY: Chest radiograph November 28, 2021. FINDINGS: Lung volumes are normal. No consolidation is identified. 1.3 cm right lower lobe nodule is again noted. This was depicted on abdominal CT of June 04, 2021. This was not evident on earlier chest radiographs. Old right rib fractures are present. There is no pneumothorax or pleural effusion. Cardiac size is normal. Mediastinal contours are normal. There is no evidence for pulmonary edema. IMPRESSION: 1. No acute cardiopulmonary findings. 2. 1.3 cm right lower lobe pulmonary nodule, as described above. This remains indeterminate and a primary lung malignancy cannot be excluded. ACT 112: Negative or not required by law. Electronically signed by: Keshawn Mckeon M.D. 05/03/2022 3:57 PM Shoulder X-Ray 05/03/22 18:21 XR shoulder LT min 2V routine CLINICAL HISTORY: Fall, shoulder tenderness and ecchymosis COMPARISON: Left shoulder radiographs June 05, 2013. FINDINGS: Elevation of the left humeral head is noted. There is remodeling of the acromion. No acute fracture is present. Severe acromioclavicular joint osteoarthritis is present. There is moderate glenohumeral joint osteoarthritis. IMPRESSION: 1. No acute fracture or dislocation within the left shoulder. 2. Severe acromioclavicular joint osteoarthritis. Moderate glenohumeral joint osteoarthritis. 3. Elevation of the left humeral head with narrowing of the subacromial space consistent with chronic rotator cuff tear. ACT 112: Negative or not required by law. Electronically signed by: Keshawn Mckeon M.D. 05/03/2022 7:37 PM Shoulder X-Ray 05/03/22 18:21 XR shoulder RT min 2V routine CLINICAL HISTORY: Fall, shoulder tenderness and ecchymosis COMPARISON: Right shoulder radiographs May 03, 2017. FINDINGS: Elevation of the right humeral head is noted. There is no acute fracture. Severe degenerative changes within the right shoulder are present. There is an age-indeterminate fracture of the lateral right third rib. Apparent mediastinal widening/prominence of the thoracic aorta is likely technical. This was not evident on chest radiograph performed earlier today. IMPRESSION: 1. No acute fracture or dislocation within the right shoulder. 2. Severe degenerative changes within the right shoulder. 3. Elevation of the right humeral head suggestive of a chronic rotator cuff tear. 4. Age-indeterminate fracture of the lateral right third rib. ACT 112: Negative or not required by law. Electronically signed by: Keshawn Mckeon M.D. 05/03/2022 7:37 PM Discharge Plan Visit Data Chief Complaint: Fall Stated Complaint: fall, skin tear, on floor for 12 hours ED Provider: Dominic Rodríguez Discharge Problem: Rhabdomyolysis, Fall, Skin tear of left hand without complication, Dehydration, YULISSA (acute kidney injury) Forms Stand Alone Forms: [facility] [place] Prescriptions Prescriptions: No Action pantoprazole [Protonix] 40 mg tablet,delayed release (DR/EC) 40 mg PO DAILY Qty: 30 2RF tamsulosin [Flomax] 0.4 mg Capsule 0.4 mg PO HS dutasteride [Avodart] 0.5 mg Capsule 0.5 mg PO HS cholecalciferol (vitamin D3) [Vitamin D3] 50 mcg (2,000 unit) Capsule 50 mcg PO HS tramadol 50 mg tablet 50 mg PO Q8 PRN (Reason: Pain, Moderate) Rx Instructions: disc degeneration lumbar region Referrals Referrals: Ollie Wagner PA-C [Primary Care Provider] -
[2022-05-03 14:53] LABS: Hematocrit (blood only) 50.2 % (40.1-51.0); Mean Corpuscular Hgb Conc 33.9 g/dL (32.0-36.0); Mean Corpuscular Volume 91.6 fL (80.0-100.0); Mean Platelet Volume 9.4 fL (9.4-12.4); Platelet Count 247 K/uL (130-400); RDW Coefficient of Variation 13.7 % (11.5-14.5); RDW Standard Deviation 45.9 fL (36.4-46.3); Red Blood Count 5.48 M/uL (4.63-6.08); White Blood Count 27.85 K/ul (4.8-10.8)
[2022-05-03] MEDS ORDERED: HYDROmorphone INJ 0.5 MG/0.5 ML SYR IV STA (14:56)
[2022-05-03 15:17] LABS: Basophils # (auto) 0.05 K/uL (0-0.2); Basophils % (auto) 0.2 %; Eosinophils # (auto) 0.03 K/uL (0-0.50); Eosinophils % (auto) 0.1 %; Immature Granulocytes # (auto) 0.25 K/uL (0.00-0.02); Immature Granulocytes % (auto) 0.9 %; Lymphocytes # (auto) 0.41 K/uL (1.2-3.4); Lymphocytes % (auto) 1.5 %; Monocytes # (auto) 1.61 K/uL (0.24-0.82); Monocytes % (auto) 5.8 %; Neutrophils % (auto) 91.5 %; Toxic Vacuolation 1+
[2022-05-03 15:19] LABS: Calcium 10.5 mg/dl (8.5-10.1); Creatinine Clr Calc Pharmacy 21.2 ml/min; Est GFR (Non-African American) 25.9 ml/min
[2022-05-03 15:20] LABS: INR 1.1 (0.9-1.1); Partial Thromboplastin Time 28.8 Seconds (21.0-31.0); Prothrombin Time 11.9 Seconds (9.0-12.0)
--- NOTE | 2022-05-03 15:38 | CT Scan Report ---
CT head/brain wo con CLINICAL HISTORY: 86 years-old Male with fall, head injury. Acute head trauma status post fall TECHNIQUE: Multiple axial CT images of the head were obtained without contrast. A dose lowering tech nique was utilized adhering to the principles of ALARA. CT DOSE: 823.94 mGycm COMPARISON: CT cervical spine of same day, head CT 06/20/2020 FINDINGS: No acute intracranial hemorrhage, midline shift, intracranial mass, hydrocephalus, territorial ischem ia or abnormal extra-axial collection. Age-related involutional changes. White matter hypodensities s uggest chronic microvascular ischemic disease. Cerebral vascular calcifications. The calvarium is intact. Prior bilateral lens repair. Small left cheek contusion. The paranasal sinus es, mastoid air cells, and middle ear cavities are clear. IMPRESSION: No acute intracranial abnormality or calvarial fracture. ACT 112: Negative or not required by law. The above report was generated using voice recognition software. It may contain grammatical, syntax o r spelling errors. Electronically signed by: Roldan Gore M.D. 05/03/2022 3:36 PM
--- NOTE | 2022-05-03 15:49 | XRay Report ---
XR pelvis 1-2V routine CLINICAL HISTORY: fall TECHNIQUE: A single frontal view of the pelvis was obtained. Comparison: Comparison is made to hip and pelvis radiograph 08/11/2019 FINDINGS: Calcific densities are noted in the pelvis, favored to represent phleboliths and prostatic calcificat ions. Degenerative changes are seen in the hip joints and lumbar spine. Bones are demineralized. No soft tissue abnormality is seen. IMPRESSION: Degenerative changes without evidence of acute abnormality. ACT 112: Negative or not required by law. Electronically signed by: Tam De La Rosa M.D. 05/03/2022 3:47 PM
[2022-05-03 15:54] LABS: Albumin Level 4.1 gm/dl (3.4-5.0); Bilirubin Direct 0.3 mg/dl (0-0.2); Bilirubin,Total 1.7 mg/dl (0.2-1.0); Magnesium 2.7 mg/dl (1.7-2.4); Total Protein 7.5 gm/dl (6.0-8.3); Troponin I High Sensitivity 1657.2 pg/ml (0-20)
[2022-05-03] MEDS ORDERED: CEFEPIME 2,000 MG/20 ML VIAL IV STA (15:54)
--- NOTE | 2022-05-03 15:54 | CT Scan Report ---
CT OF THE CERVICAL SPINE WITHOUT CONTRAST CLINICAL HISTORY: fall, head injury COMPARISON STUDY: Cervical spine CT June 09, 2018. TECHNIQUE: Helical axial images of the cervical spine were obtained without IV contrast. Sagittal a nd coronal reconstructions were viewed. Automated exposure control was utilized for the study. A do se lowering technique was utilized adhering to the principles of ALARA. FINDINGS: Alignment of the cervical spine is anatomic. Vertebral body heights are maintained. No acut e cervical spine fracture or subluxation is present. There is no prevertebral edema. Facet joints are intact. The left mandibular condyle is subluxed. This may be chronic given fracture shown on CT of June 09, 2018. Left neck stranding is noted. Moderate multilevel degenerative changes are present . IMPRESSION: 1. No acute cervical spine fracture or subluxation. 2. Mild left neck stranding suggestive of a contusion. 3. Old, healed fracture deformity of the left mandibular condyle which is subluxed, likely chronic. ACT 112: Negative or not required by law. Electronically signed by: Keshawn Mckeon M.D. 05/03/2022 3:52 PM
--- NOTE | 2022-05-03 15:58 | XRay Report ---
XR chest 1V portable CLINICAL HISTORY: fall, weakness COMPARISON STUDY: Chest radiograph November 28, 2021. FINDINGS: Lung volumes are normal. No consolidation is identified. 1.3 cm right lower lobe nodule is again noted. This was depicted on abdominal CT of June 04, 2021. This was not evident on earlier chest radiographs. Old right rib fractures are present. There is no pneumothorax or pleural effusion. Cardiac size is normal. Mediastinal contours are normal. There is no evidence for pulmonary edema. IMPRESSION: 1. No acute cardiopulmonary findings. 2. 1.3 cm right lower lobe pulmonary nodule, as described above. This remains indeterminate and a [facility] lung malignancy cannot be excluded. ACT 112: Negative or not required by law. Electronically signed by: Keshawn Mckeon M.D. 05/03/2022 3:57 PM
--- NOTE | 2022-05-03 16:05 | XRay Report ---
LEFT HAND 3 VIEWS CLINICAL HISTORY: Fall with left hand injury. FINDINGS: 3 views of the left hand were obtained. No prior studies are available for comparison at th e time of dictation. The examination is degraded by inability to properly position the patient. The s keletal structures are osteopenic. No acute fracture is identified. There is degenerative narrowing a t the radiocarpal articulation. Moderate osteoarthritic changes ia seen at the first carpometacarpal joint. Osteoarthritic change is also seen at the first metacarpophalangeal joint and throughout the i nterphalangeal joints, distal greater than proximal. There is erosive osteoarthritis of the second th rough fifth DIPs. Soft tissue swelling is seen throughout the wrist and hand. There is atheroscleroti c calcification of the regional arteries. IMPRESSION: 1. Soft tissue swelling with no acute fracture identified. If there is clinical concern for occult fr acture consider short-term radiographic follow-up. 2. Osteopenia and arthritic change as above. Electronically signed by: Javid Mendoza M.D. 05/03/2022 4:04 PM
[2022-05-03] MEDS: HYDROmorphone INJ 0.5 MG/0.5 ML SYR IV PRN ×2 (16:50→18:32)
--- NOTE | 2022-05-03 16:51 | History & Physical Report ---
Date of Service May 03, 2022 Assessment & Plan (1) Fall: Plan: Unclear circumstances including possibility of syncopal event. Will monitor in PCU. Troponin elevated which may be related to YULISSA/demand ischemia. Initial EKG with questionable atrial flutter but appears on repeat EKG to have been more likely due to artifact from shaking upon arrival. Suspect UTI that may have contributed to events. - Admit to PCU - Repeat troponin this evening - Check ECHO - Fall precautions - PT/OT evaluations - Pain control - will start with scheduled Tylenol, prn tramadol. May need to add IV dilaudid. (2) Rhabdomyolysis: Plan: Given IVF x 2 liter in ED - will give additional 2L at 80 cc/hr. Associated electrolyte abnormalities, YULISSA, and elevated LFTs - Follow labs daily (3) YULISSA (acute kidney injury): Plan: Due to #2 - follow labs, receiving IVF (4) UTI (urinary tract infection): Plan: Await urine culture. Continue cefepime as started in the ED (5) Skin tear of left hand without complication: Plan: - Wound care consult (6) Dehydration: Plan: IVF as above (7) BPH (benign prostatic hyperplasia): Plan: - Continue home meds (8) DDD (degenerative disc disease): (9) Lung nodule: Plan: Will need to be followed up as outpatient (10) Non-traumatic rhabdomyolysis: Plan Pt seen and reviewed with collaborating physician, Dr. Ramsey. Plan of care discussed and as outlined above. Code Status: Full Code DVT Prophylaxis: SCDs for now - re-evaluate in RADHA Vang PA-C History of Present Illness Chief Complaint: Fall Primary Care Provider: Ollie Wagner PA-C This is an 86 y/o male with a PMH of BPH, emphysema, postherpetic neuralgia, and pulmonary nodule in the setting of prior tobacco use who presented to the ED for a fall with prolonged down time. Pt reports that he felt fine last evening, went to bed around 11 pm. Woke up to go to the bathroom and on his way back to bed, he fell. He cannot recall the details of his fall or the immediate preceding events. He thinks that he landed on his chest. He was lying face down on the ground for approximately 12 hours before his son, who comes over daily to check on pt and his , found him. Pt's had a stroke 20 years ago and was unable to call for help. 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 At baseline he uses a cane intermittently to ambulate. He has some ongoing issues with dizziness and gait disturbances for which he follows with neurology. He reports that his last fall was more than two years ago. He denies chest pain, palpitations, SOB, N/V/D, blood in stools or urine. No change in chronic dizziness that he can recall. No recent fevers or chills. Currently, his pain is still significant and present diffusely but worse in his shoulders and hands. He did note some improvement with the Dilaudid. He drinks 1-2 glasses of wine per day. Allergies Allergy/AdvReac Type Severity Reaction Status Date / Time hydrochlorothiazide Allergy Severe PANCREATITI Verified 05/03/22 16:25 S morphine Allergy Severe convulsions Verified 05/03/22 16:25 meloxicam Allergy Mild RASH Verified 05/03/22 16:25 gabapentin AdvReac Severe Fainting Verified 05/03/22 16:25 Home Medications Medication Instructions Recorded Confirmed Type tamsulosin 0.4 mg capsule (Flomax) 0.4 mg PO HS 11/11/18 05/03/22 History dutasteride 0.5 mg capsule 0.5 mg PO HS 08/09/19 05/03/22 History (Avodart) cholecalciferol (vitamin D3) 50 50 mcg PO HS 04/24/21 05/03/22 History mcg (2,000 unit) capsule (Vitamin D3) pantoprazole 40 mg tablet,delayed 40 mg PO DAILY gastric erosions 12/09/21 05/03/22 Rx release (Protonix) #30 tabs tramadol 50 mg tablet 50 mg PO Q8 PRN Pain, Moderate 05/03/22 05/03/22 History Past Med/Surg History Medical History (Updated 05/03/22 @ 21:52 by Fariba Ramsey DO) Acute pancreatitis Anemia Aortic valve sclerosis Bladder stones BPH (benign prostatic hyperplasia) Centrilobular emphysema DDD (degenerative disc disease) Hearing deficit History of colon polyps History of COVID-19 09/11/21 @ [facility] (asymptomatic, tested prior to procedure)--no issues History of hypertension controlled since weight loss Left hip pain Lung nodule Mandibular fracture Osteoarthritis Spinal stenosis B/L LE radiculopathy Surgical History History of appendectomy History of carpal tunnel surgery RIGHT HAND History of colonoscopy History of ERCP (~11/30/20) History of esophagogastroduodenoscopy (EGD) last 09/29/21 @ [place] History of tonsillectomy and adenoidectomy Hx of hernia repair RIGHT INGUINAL Hx of toe surgery HAD TOENAIL REMOVED IN OFFICE 12/2018 Hx of tonsillectomy Previous back surgery Family History Mother Liver cancer Social History Smoking Status: Never smoker Tobacco Type: Cigarettes Second Hand Exposure: No; Hx Alcohol Use: Yes Alcohol type: wine Hx Substance Use: No Preferred Language: Upper Sorbian Communication Ability: Effective Visual Impairment: No Limitations Strand And Binder Controller Required: No Beliefs That Will Affect Care: None marital status: Current Living Situation: Spouse Current Living Situation Comment: 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 HE IS TRYING TO FIND SOMEONE Feels Safe at Home: Yes Assistive Devices: Cane, Denture - Upper and Glasses Review of Systems Review of Systems: All systems reviewed & are unremarkable except as noted in HPI & below Constitutional: + fatigue; no fever and no chills Ear, Nose, Mouth, Throat: no nasal congestion, no nasal discharge and no sore throat Respiratory: no cough and no dyspnea Cardiovascular: + lightheadedness and + syncope; no chest pain, no palpitations and no edema Gastrointestinal: no abdominal pain, no nausea, no vomiting, no diarrhea/loose stools and no blood in stools Genitourinary: no dysuria or no hematuria Musculoskeletal: as per Subjective / HPI Integumentary: + wounds (related to fall today) Neurologic: + falls and + dizziness Psychiatric: no depression and no anxiety Physical Exam Constitutional: + thin and + frail appearing; + uncomfortable Eyes: + anicteric sclerae Neck: trachea midline Respiratory: no respiratory distress and no labored breathing Auscultation: lungs clear to auscultation bilaterally; no rales, no rhonchi and no wheezes Cardiovascular: Rate/Rhythm: regular rate and regular rhythm Vessels: radial pulses present Extremities: no pedal edema Gastrointestinal (Abdomen): Inspection/Auscultation: normal bowel sounds; abdomen not distended Percussion/Palpation: abdomen soft; abdomen nontender Musculoskeletal: right > left knee swelling with mild erythema, left hand edematous, bilateral shoulders with anterior ecchymosis and tenderness left periorbital edema and ecchymosis Skin: large skin tear on back of left hand - does not appear to involve tendons multiple areas of ecchymosis noted Neurologic: moves all extremities Speech / Cognition: normal speech Psychiatric: Orientation: alert and oriented x 3 Results & Data Results & Data ([facility]) Vital Signs (Past 12 Hours) Vital Signs Pulse Resp BP Pulse Ox O2 Del Method 05/03/22 15:57 78 22 143/84 H 91 05/03/22 15:00 85 20 05/03/22 14:30 84 22 94 05/03/22 13:28 86 30 H 05/03/22 13:28 88 20 128/73 94 Room Air Laboratory Results Laboratory Results - last 24 hr 05/03/22 05/03/22 05/03/22 14:30 14:37 14:37 WBC RBC Hgb Hct MCV MCH MCHC RDW Std Deviation RDW Coeff of Jocelyn Plt Count MPV Immature Gran % (Auto) Neut % (Auto) Lymph % (Auto) [place] % (Auto) Eos % (Auto) Baso % (Auto) Neut # (Auto) Lymph # (Auto) [place] # (Auto) Eos # (Auto) Baso # (Auto) Immature Gran # (Auto) Toxic Vacuolation PT 11.9 INR 1.1 APTT 28.8 PTT Ratio 1.0 Sodium 144 Potassium 4.0 Chloride 107 Carbon Dioxide 23 Anion Gap 14 H BUN 29 H Creatinine 2.23 H Est Cr Clr Drug Dosing 21.2 Est GFR ( Amer) 30.0 Est GFR (Non-Af Amer) 25.9 BUN/Creatinine Ratio 13.0 Glucose 120 H Lactate Calcium 10.5 H Magnesium 2.7 H Total Bilirubin 1.7 H Direct Bilirubin 0.3 H AST 125 H ALT 57 H Alkaline Phosphatase 102 Total Creatine Kinase 4614 H Troponin I High Sens 1657.2 H* Total Protein 7.5 Albumin 4.1 Lipase 20 Procalcitonin Urine Color Urine Appearance Urine pH Ur Specific [place] Urine Protein Urine Glucose (UA) Urine Ketones Urine Blood Urine Nitrite Urine Bilirubin Urine Urobilinogen Ur Leukocyte Esterase SARS-CoV-2, RNA, NAAT NEGATIVE 05/03/22 05/03/22 05/03/22 14:37 14:37 16:00 WBC 27.85 H RBC 5.48 Hgb 17.0 Hct 50.2 MCV 91.6 MCH 31.0 MCHC 33.9 RDW Std Deviation 45.9 RDW Coeff of Jocelyn 13.7 Plt Count 247 MPV 9.4 Immature Gran % (Auto) 0.9 Neut % (Auto) 91.5 Lymph % (Auto) 1.5 [place] % (Auto) 5.8 Eos % (Auto) 0.1 Baso % (Auto) 0.2 Neut # (Auto) 25.50 H Lymph # (Auto) 0.41 L [place] # (Auto) 1.61 H Eos # (Auto) 0.03 Baso # (Auto) 0.05 Immature Gran # (Auto) 0.25 H Toxic Vacuolation 1+ PT INR APTT PTT Ratio Sodium Potassium Chloride Carbon Dioxide Anion Gap BUN Creatinine Est Cr Clr Drug Dosing Est GFR ( Amer) Est GFR (Non-Af Amer) BUN/Creatinine Ratio Glucose Lactate Pending Calcium Magnesium Total Bilirubin Direct Bilirubin AST ALT Alkaline Phosphatase Total Creatine Kinase Troponin I High Sens Total Protein Albumin Lipase Procalcitonin 22.68 H Urine Color Urine Appearance Urine pH Ur Specific [place] Urine Protein Urine Glucose (UA) Urine Ketones Urine Blood Urine Nitrite Urine Bilirubin Urine Urobilinogen Ur Leukocyte Esterase SARS-CoV-2, RNA, NAAT 05/03/22 16:30 WBC RBC Hgb Hct MCV MCH MCHC RDW Std Deviation RDW Coeff of Jocelyn Plt Count MPV Immature Gran % (Auto) Neut % (Auto) Lymph % (Auto) [place] % (Auto) Eos % (Auto) Baso % (Auto) Neut # (Auto) Lymph # (Auto) [place] # (Auto) Eos # (Auto) Baso # (Auto) Immature Gran # (Auto) Toxic Vacuolation PT INR APTT PTT Ratio Sodium Potassium Chloride Carbon Dioxide Anion Gap BUN Creatinine Est Cr Clr Drug Dosing Est GFR ( Amer) Est GFR (Non-Af Amer) BUN/Creatinine Ratio Glucose Lactate Calcium Magnesium Total Bilirubin Direct Bilirubin AST ALT Alkaline Phosphatase Total Creatine Kinase Troponin I High Sens Total Protein Albumin Lipase Procalcitonin Urine Color Pending Urine Appearance Pending Urine pH Pending Ur Specific Milton Pending Urine Protein Pending Urine Glucose (UA) Pending Urine Ketones Pending Urine Blood Pending Urine Nitrite Pending Urine Bilirubin Pending Urine Urobilinogen Pending Ur Leukocyte Esterase Pending SARS-CoV-2, RNA, NAAT Diagnostic Findings Chest X-ray 05/03/22 - IMPRESSION:1. No acute cardiopulmonary findings. 2. 1.3 cm right lower lobe pulmonary nodule, as described above. This remains indeterminate and a primary lung malignancy cannot be excluded. Pelvic X-ray 05/03/22 - IMPRESSION: Degenerative changes without evidence of acute abnormality. CT Head 05/03/22 - IMPRESSION: No acute intracranial abnormality or calvarial fracture. Left Hand X-ray 05/03/22 - IMPRESSION: 1. Soft tissue swelling with no acute fracture identified. If there is clinical concern for occult fracture consider short-term radiographic follow-up. 2. Osteopenia and arthritic change as above. CT C-spine 05/03/22 - IMPRESSION: 1. No acute cervical spine fracture or subluxation. 2. Mild left neck stranding suggestive of a contusion. 3. Old, healed fracture deformity of the left mandibular condyle which is subluxed, likely chronic. Medications Administered Discontinued Medications Hydromorphone HCl (Hydromorphone Inj 0.5 Mg/0.5 Ml Syr) 0.5 mg IM NOW STA Stop: 05/03/22 13:36 Last Admin: 05/03/22 13:41 Dose: 0.5 mg Documented By: [place] Hydromorphone HCl (Hydromorphone Inj 0.5 Mg/0.5 Ml Syr) 0.5 mg IV NOW STA Stop: 05/03/22 14:57 Last Admin: 05/03/22 15:01 Dose: 0.5 mg Documented By: MT Sodium Chloride (Nss 1000ml) 1,000 mls @ 999 mls/hr IV .Q1H1M ONE Stop: 05/03/22 14:35 Last Admin: 05/03/22 14:23 Dose: 999 mls/hr Documented By: [place] Cefepime HCl (Maxipime) 2,000 mg in 20 mls @ 5 mls/min IV NOW STA; Protocol Stop: 05/03/22 15:57 Last Admin: 05/03/22 16:32 Dose: 5 mls/min Documented By: MT Supervising Physician Co-Signing Physician Notes Patient is an 86-year-old man who presents after a fall with multiple areas of trauma including his left face and neck as well as his left shoulder and a severe abrasion on his left hand. This is a mechanical fall that was likely precipitated from recent foot surgery on the right and him walking in a surgical shoe with a walker. He is elderly and frail-appearing. He cannot recall the details of his fall and was lying face down for approximately 12 hours until his son found him. He is the primary caregiver of his at home. He typically ambulates with a cane. He drinks wine daily. He is currently reporting pain which although Dilaudid was helping in the ER it does not last more than 30 minutes. He typically takes tramadol at home for pain. He denies any chest pain, trouble breathing, abdominal pain. Physical exam reveals an elderly frail man in no acute distress who is generally weak and cannot sit up independently and who is in a moderate amount of pain. He has a severe abrasion on his left hand, bruising on his left anterior shoulder, erythema and swelling in the left neck and throat area and bruising on the left side of his face. He has bruising and trauma to his right knee and a surgical shoe with Lloyd wrap around his right foot. There is no swelling in his legs but he cannot bend his knees well actively. Range of motion is restricted here. Generalized weakness may be contributing to his inabilities. Cardiac exam reveals S1/S2 with no acute murmurs, gallops or rubs. Lungs are clear to auscultation bilaterally. Abdomen is soft nontender and nondistended. Work-up in the ER reveals a white blood cell count of 27, H&H of 17/50 indicating likely a hemoconcentrated state. Platelet count is 247. He has a left shift present on CBC. Coags are negative and he is not on blood thinners. BMP reveals normal sodium, potassium with an anion gap of 14, BUN of 29 and creatinine of 2.23 with a normal baseline. Glucose is 120. Lactate was initially elevated 2.7 and improved to 1.9 after IV fluids. Calcium is up to 10.5 likely result of hemoconcentration and dehydration. Bilirubin slightly elevated at 1.7. AST is 125 ALT 57, total CK is 4614. Highly sensitive troponin is elevated at 1657 with repeat 1290. Procalcitonin is elevated at 23. Urinalysis with evidence of blood and protein but no evidence of infection. Left and right shoulder x-rays reveal severe AC joint arthritis with evidence of bilateral chronic rotator cuff tear. There is also evidence of an age- indeterminate fracture of the left right third rib. Chest x-ray reveals 1.3 right lower lobe pulmonary nodule pelvic x-ray head CT, left hand x-ray and cervical spine CT were unremarkable. This is an 86-year-old man status post mechanical fall with multiple areas of trauma who has nontraumatic rhabdomyolysis, dehydration with hemoconcentration evidenced by elevated H&H and calcium as well as elevated creatinine and lactate. Procalcitonin may reflect bacterial infection but there is no evidence of sepsis. Suspect elevated procalcitonin is a reflection of the elevated creatinine. White blood cell count also may be developing infection such as a skin and soft tissue infection in his hand or infection elsewhere, however, suspect this is reflective of inflammation in his clinical picture. Agree with empiric antibiotics. Agree with continuing IVF. Appreciate wound care, PT, OT assessments. DO Braulio (1) UTI (urinary tract infection) Hematuria presence: with hematuria Urinary tract infection type: site unspecified Qualified Code(s): N39.0 - Urinary tract infection, site not specified; R31.9 - Hematuria, unspecified
[2022-05-03 17:04] LABS: Appearance Urine Cloudy (Clear); Bacteria Urine Automated Negative (Negative); Bilirubin Urine Negative (Negative); Blood Urine 3+ (Negative); Color Urine Dark Yellow; Epithelial Cell Urine Auto 20-30 /lpf (0-5); Glucose Urine UA Negative (Negative); Ketones Urine Trace (Negative); Leukocyte Esterase Urine Trace (Negative); Nitrite Urine Negative (Negative); Protein Urine 2+ (Negative); Specific Gravity Urine 1.015 (1.000-1.030); Urobilinogen Urine Negative (Negative)
[2022-05-03 17:24] LABS: RBC Urine Automated 0-4 /hpf (0-4)
[2022-05-03 17:25] LABS: Calcium Oxalate Crystals Urine Present (None Prsent); Cast Urine Automated >30 /lpf (0-5)
[2022-05-03] MEDS: SODIUM CHLORIDE 0.9% 1000ML 1,000 ML IV SCH (19:38)
[2022-05-03] MEDS: ACETAMINOPHEN 325 MG TAB PO SCH (19:38)
--- NOTE | 2022-05-03 19:38 | XRay Report ---
XR shoulder RT min 2V routine CLINICAL HISTORY: Fall, shoulder tenderness and ecchymosis COMPARISON: Right shoulder radiographs May 03, 2017. FINDINGS: Elevation of the right humeral head is noted. There is no acute fracture. Severe degenerat tayla changes within the right shoulder are present. There is an age-indeterminate fracture of the late ral right third rib. Apparent mediastinal widening/prominence of the thoracic aorta is likely technic al. This was not evident on chest radiograph performed earlier today. IMPRESSION: 1. No acute fracture or dislocation within the right shoulder. 2. Severe degenerative changes within the right shoulder. 3. Elevation of the right humeral head suggestive of a chronic rotator cuff tear. 4. Age-indeterminate fracture of the lateral right third rib. ACT 112: Negative or not required by law. Electronically signed by: Keshawn Mckeon M.D. 05/03/2022 7:37 PM
--- NOTE | 2022-05-03 19:38 | XRay Report ---
XR shoulder LT min 2V routine CLINICAL HISTORY: Fall, shoulder tenderness and ecchymosis COMPARISON: Left shoulder radiographs June 05, 2013. FINDINGS: Elevation of the left humeral head is noted. There is remodeling of the acromion. No acute fracture is present. Severe acromioclavicular joint osteoarthritis is present. There is moderate gle nohumeral joint osteoarthritis. IMPRESSION: 1. No acute fracture or dislocation within the left shoulder. 2. Severe acromioclavicular joint osteoarthritis. Moderate glenohumeral joint osteoarthritis. 3. Elevation of the left humeral head with narrowing of the subacromial space consistent with chronic rotator cuff tear. ACT 112: Negative or not required by law. Electronically signed by: Keshawn Mckeon M.D. 05/03/2022 7:37 PM
[2022-05-03] MEDS ORDERED: traMADol HCL 50 MG TABLET PO STA (20:00)
[2022-05-03] MEDS ORDERED: traMADol HCL 50 MG TABLET PO PRN (21:59)
[2022-05-03] MEDS: TAMSULOSIN HCL 0.4 MG CAP PO SCH (23:24)
[2022-05-04] MEDS: ACETAMINOPHEN 325 MG TAB PO SCH ×3 (02:44→17:45)
--- NOTE | 2022-05-04 06:01 | Electrocardiogram Report ---
Test Reason : Blood Pressure : / mmHG Vent. Rate : 084 BPM Atrial Rate : 000 BPM P-R Int : 000 ms QRS Dur : 120 ms QT Int : 382 ms P-R-T Axes : 084 -23 029 degrees QTc Int : 452 ms Poor data quality, interpretation may be adversely affected Possible Sinus rhythm Low voltage QRS Right bundle branch block Abnormal ECG When compared with ECG of 04-JUN-2021 02:13, Premature atrial complexes are no longer Present Confirmed by Mike Bellamy ([id number]) on 05/04/2022 6:00:59 AM Referred By: REFERRED SELF Confirmed By:Mike Bellamy
[2022-05-04 06:23] LABS: Hematocrit (blood only) 39.5 % (40.1-51.0); Hemoglobin 13.4 g/dl (14.0-18.0); Mean Corpuscular Hemoglobin 31.1 pg (25.0-34.0); Mean Corpuscular Hgb Conc 33.9 g/dL (32.0-36.0); Mean Corpuscular Volume 91.6 fL (80.0-100.0); Mean Platelet Volume 9.6 fL (9.4-12.4); Platelet Count 194 K/uL (130-400); RDW Coefficient of Variation 13.8 % (11.5-14.5); RDW Standard Deviation 46.6 fL (36.4-46.3); Red Blood Count 4.31 M/uL (4.63-6.08); White Blood Count 19.78 K/ul (4.8-10.8)
[2022-05-04 06:49] LABS: Albumin Level 3.2 gm/dl (3.4-5.0); BUN Creatinine Ratio 23.2 (10-20); Bilirubin Direct 0.2 mg/dl (0-0.2); Bilirubin,Total 1.1 mg/dl (0.2-1.0); Calcium 9.1 mg/dl (8.5-10.1); Est GFR (African American) 51.8 ml/min; Est GFR (Non-African American) 44.7 ml/min; Potassium 4.2 mmol/L (3.5-5.1); Total Protein 5.7 gm/dl (6.0-8.3)
[2022-05-04 07:10] LABS: Basophils # (auto) 0.04 K/uL (0-0.2); Basophils % (auto) 0.2 %; Eosinophils % (auto) 0.5 %; Immature Granulocytes # (auto) 0.18 K/uL (0.00-0.02); Immature Granulocytes % (auto) 0.9 %; Lymphocytes # (auto) 0.65 K/uL (1.2-3.4); Lymphocytes % (auto) 3.3 %; Monocytes # (auto) 0.96 K/uL (0.24-0.82); Monocytes % (auto) 4.9 %; Neutrophils # (auto) 17.85 K/uL (1.4-6.5); Neutrophils % (auto) 90.2 %
[2022-05-04] MEDS: SODIUM CHLORIDE 0.9% 1000ML 1,000 ML IV SCH (08:54)
[2022-05-04] MEDS: PANTOprazole 40 MG TAB PO SCH (08:54)
[2022-05-04] MEDS: CEFEPIME 1,000 MG in SYRINGE 0 ML IV SCH (14:52)
--- NOTE | 2022-05-04 16:15 | Hospitalist Progress Note ---
Date of Service May 04, 2022 Assessment & Plan (1) Fall: Plan: Mechanical fall with multiple areas of trauma Will monitor in PCU. Troponin elevated which may be related to YULISSA/demand ischemia. Check ECHO-normal LV size with moderate concentric LV hypertrophy, LV wall motion is normal with EF of 60 to 65%, grade 1 diastolic dysfunction, aortic valve sclerosis without stenosis, moderate mitral valve annular calcification, trace mitral regurgitation, trace tricuspid regurgitation with mild aortic root dilatation at 4 cm Fall precautions PT/OT evaluations (2) Rhabdomyolysis: Plan: Given IVF x 2 liter in ED - will give additional 2L at 80 cc/hr. Associated electrolyte abnormalities, YULISSA, and elevated LFTs Total CK level was 4614 on admission and today it went up to 5936 We will continue with intravenous fluid as advised Repeat lab in the morning (3) YULISSA (acute kidney injury): Plan: Due to #2 - follow labs, receiving IVF Creatinine has been improving and it is 1.4 to down from 2.23 on admission Will monitor BMP (4) UTI (urinary tract infection): Plan: Await urine culture. Continue cefepime as started in the ED Continue current antibiotic (5) Skin tear of left hand without complication: Plan: - Wound care consult -Appreciate input and recommendation (6) Dehydration: Plan: IVF as above (7) BPH (benign prostatic hyperplasia): Plan: - Continue home meds (8) DDD (degenerative disc disease): (9) Lung nodule: Plan: Will need to be followed up as outpatient (10) Non-traumatic rhabdomyolysis: Plan Pt seen and reviewed with collaborating physician, Dr. Ramsey. Plan of care discussed and as outlined above. Code Status: Full Code DVT Prophylaxis: SCDs for now - re-evaluate in AM Admission and Anticipated Discharge Date Admission Date: May 03, 2022 Subjective 05/04/2022 The patient was seen and examined in telemetry unit He complains to pain in the left hand and left leg Denies any other symptoms of chest pain, shortness of breath or palpitation No abdominal pain, nausea and or vomiting Review of Systems Review of Systems: All systems reviewed and are unremarkable except as noted below Physical Exam Physical Exam: Lying in bed comfortably Constitutional: + ill appearing and average body habitus Eyes: PERRL, conjunctivae normal, anicteric sclerae ENMT: external ear and nose normal, oropharynx normal Neck: trachea midline, no thyromegaly Respiratory: no respiratory distress Auscultation: + diminished lung sounds and + crackles (Minimal crackles at the bases) Gastrointestinal (Abdomen): Inspection/Auscultation: normal bowel sounds; abdomen not distended Percussion/Palpation: abdomen soft; abdomen nontender Musculoskeletal: Pain on moving left shoulder and left hand Skin: Severe abrasion and laceration of the left dorsum of hand, bruising of anterior shoulder, erythema and swelling of the left neck and throat area and bruising of the left face. Bruising and trauma to left knee as well Neurologic: normal touch/pain/proprioception and moves all extremities; no focal motor deficits Lymphatic: no cervical or axillary lymphadenopathy Results & Data Results & Data ([facility]) Vital Signs (Past 12 Hours) Vital Signs Temp Pulse Resp BP Pulse Ox O2 Del Method 05/04/22 15:10 36.4 C L 57 L 18 119/60 91 Room Air 05/04/22 11:03 36.4 C L 67 18 118/67 91 Room Air 05/04/22 10:02 Room Air 05/04/22 07:10 36.6 C 67 18 127/69 93 Room Air Laboratory Results Short CBC 05/04/22 Range/Units 05:31 WBC 19.78 H (4.8-10.8) K/ul Hgb 13.4 L D (14.0-18.0) g/dl Hct 39.5 L (40.1-51.0) % Plt Count 194 (130-400) K/uL BMP 05/03/22 05/04/22 14:37 05:31 Sodium 144 143 Potassium 4.0 4.2 Chloride 107 114 H Carbon Dioxide 23 24 BUN 29 H 33 H Creatinine 2.23 H 1.42 H D Glucose 120 H 111 H Calcium 10.5 H 9.1 Cardiac Enzymes 05/03/22 05/04/22 Range/Units 14:37 05:31 Total Creatine Kinase 4614 H 5936 H (30-223) U/L Liver Function 05/03/22 05/04/22 Range/Units 14:37 05:31 Total Bilirubin 1.7 H 1.1 H (0.2-1.0) mg/dl Direct Bilirubin 0.3 H 0.2 (0-0.2) mg/dl AST 125 H 209 H (13-39) U/L ALT 57 H 78 H (7-52) U/L Alkaline Phosphatase 102 75 (34-104) U/L Albumin 4.1 3.2 L (3.4-5.0) gm/dl Urine 05/03/22 Range/Units 16:30 Urine Color Dark Yellow Urine Appearance Cloudy A (Clear) Urine pH 5.0 (4.5-7.5) Ur Specific [place] 1.015 (1.000-1.030) Urine Protein 2+ H (Negative) Urine Glucose (UA) Negative (Negative) Medications Administered Current Inpatient Medications Acetaminophen (Acetaminophen 325 Mg Tab) 650 mg PO Q8H [facility] Stop: 06/02/22 18:29 Last Admin: 05/04/22 08:54 Dose: 650 mg Sodium Chloride (Nss 1000ml) 1,000 mls @ 80 mls/hr IV .[id number] [facility] Stop: 05/04/22 18:59 Last Admin: 05/04/22 08:54 Dose: 80 mls/hr Cefepime HCl 1,000 mg/ Syringe 10 mls @ 5 mls/min IV Q24H [facility]; Protocol Stop: 05/09/22 14:59 Last Admin: 05/04/22 14:52 Dose: 5 mls/min Pantoprazole Sodium (Pantoprazole 40 Mg Tab) 40 mg PO DAILY [facility] Stop: 06/03/22 08:59 Last Admin: 05/04/22 08:54 Dose: 40 mg Tamsulosin HCl (Tamsulosin Hcl 0.4 Mg Cap) 0.4 mg PO HS [facility] Stop: 06/02/22 21:58 Last Admin: 05/03/22 23:24 Dose: Not Given Tramadol HCl (Tramadol Hcl 50 Mg Tablet) 50 mg PO Q8 PRN PRN Reason: Pain, Moderate Stop: 06/02/22 21:58 Last Admin: 05/04/22 07:18 Dose: 50 mg (1) UTI (urinary tract infection) Hematuria presence: with hematuria Urinary tract infection type: site unspecified Qualified Code(s): N39.0 - Urinary tract infection, site not specified; R31.9 - Hematuria, unspecified
[2022-05-04] MEDS ORDERED: HYDROmorphone INJ 0.5 MG/0.5 ML SYR IV PRN (19:34)
[2022-05-04] MEDS ORDERED: traMADol HCL 50 MG TABLET PO PRN (19:35)
[2022-05-04] MEDS: TAMSULOSIN HCL 0.4 MG CAP PO SCH (21:10)
[2022-05-04] MEDS: MELATONIN 3 MG TAB PO PRN (21:10)
[2022-05-05] MEDS: ACETAMINOPHEN 325 MG TAB PO SCH ×3 (03:02→17:39)
--- NOTE | 2022-05-05 05:51 | Electrocardiogram Report ---
Test Reason : Blood Pressure : / mmHG Vent. Rate : 078 BPM Atrial Rate : 078 BPM P-R Int : 168 ms QRS Dur : 126 ms QT Int : 420 ms P-R-T Axes : 041 -49 013 degrees QTc Int : 478 ms Normal sinus rhythm Right bundle branch block Left anterior fascicular block Bifascicular block Abnormal ECG When compared with ECG of 03-MAY-2022 13:19, No significant change Confirmed by Mike Bellamy ([id number]) on 05/05/2022 5:50:46 AM Referred By: REFERRED SELF Confirmed By:Mike Bellamy
[2022-05-05] MEDS: PANTOprazole 40 MG TAB PO SCH (08:13)
[2022-05-05 08:53] LABS: Basophils # (auto) 0.05 K/uL (0-0.2); Basophils % (auto) 0.4 %; Eosinophils # (auto) 0.05 K/uL (0-0.50); Eosinophils % (auto) 0.4 %; Hematocrit (blood only) 41.6 % (40.1-51.0); Hemoglobin 14.1 g/dl (14.0-18.0); Immature Granulocytes # (auto) 0.08 K/uL (0.00-0.02); Immature Granulocytes % (auto) 0.6 %; Lymphocytes # (auto) 0.84 K/uL (1.2-3.4); Lymphocytes % (auto) 6.8 %; Mean Corpuscular Hemoglobin 30.9 pg (25.0-34.0); Mean Corpuscular Hgb Conc 33.9 g/dL (32.0-36.0); Mean Corpuscular Volume 91.2 fL (80.0-100.0); Mean Platelet Volume 9.6 fL (9.4-12.4); Monocytes # (auto) 0.63 K/uL (0.24-0.82); Monocytes % (auto) 5.1 %; Neutrophils # (auto) 10.71 K/uL (1.4-6.5); Neutrophils % (auto) 86.7 %; Platelet Count 212 K/uL (130-400); RDW Coefficient of Variation 13.9 % (11.5-14.5); RDW Standard Deviation 46.5 fL (36.4-46.3); Red Blood Count 4.56 M/uL (4.63-6.08); White Blood Count 12.36 K/ul (4.8-10.8)
[2022-05-05 10:00] LABS: Albumin Level 3.1 gm/dl (3.4-5.0); Bilirubin Direct 0.2 mg/dl (0-0.2); Bilirubin,Total 1.2 mg/dl (0.2-1.0); Calcium 9.4 mg/dl (8.5-10.1); Creatinine Clr Calc Pharmacy 57.4 ml/min; Est GFR (African American) 91.2 ml/min; Est GFR (Non-African American) 78.7 ml/min; Potassium 3.7 mmol/L (3.5-5.1); Total Protein 6.1 gm/dl (6.0-8.3)
--- NOTE | 2022-05-05 12:31 | Surgery Consultation ---
Date of Consultation May 05, 2022 Assessment & Plan (1) Skin tear of left hand without complication: Wound of left hand is currently being dressing with Adaptic, Vaseline, to prevent dressing from sticking to exposed blood vessels. Will continue with this dressing, have patient follow-up at wound care center for potential PuraPly application. He is currently a poor surgical candidate due to level of ecchymosis and edema of the left hand, and current rhabdomyolysis. Patient was seen today by Dr. Martino. Supervising Physician Co-Signing Physician Notes Patient offering complaint of a hangnail, no concerns about wound. Left dorsal hand has skin avulsion with exposed veins, questionably viable skin around the wound. I personally saw and examined this patient and agree with the assessment and plan. Continue adaptic and bacitracin for now until skin demarcates. For now follow up at wound center post discharge for eval for skin substitutes; if not a candidate will need placement of STSG, but wound is not ready at this time. I will be unavailable to reassess this patient until 05/10. Please contact Casandra Davidson PA-C regarding any questions. History of Present Illness Attending Physician: Noam Alexander MD History of Present Illness Kole is being seen today for consultation regarding wound of left dorsal hand. He presented to the ED 2 days ago, s/p a fall injury where he was laying for 12 hours. Upon presentation to the ED, left hand was covered in blood, skin avulsed and not amenable to repair. Wound of hand is currently being dressed with adaptic and Vaseline. Kole has PMH of BPH, emphysema, postherpetic neuralgia, and pulmonary nodule in the setting of prior tobacco use. He denies at home use of blood thinners. Allergies Allergy/AdvReac Type Severity Reaction Status Date / Time hydrochlorothiazide Allergy Severe PANCREATITI Verified 05/03/22 16:25 S morphine Allergy Severe convulsions Verified 05/03/22 16:25 meloxicam Allergy Mild RASH Verified 05/03/22 16:25 gabapentin AdvReac Severe Fainting Verified 05/03/22 16:25 Home Medications Medication Instructions Recorded Confirmed Type tamsulosin 0.4 mg capsule (Flomax) 0.4 mg PO HS 11/11/18 05/03/22 History dutasteride 0.5 mg capsule 0.5 mg PO HS 08/09/19 05/03/22 History (Avodart) cholecalciferol (vitamin D3) 50 50 mcg PO HS 04/24/21 05/03/22 History mcg (2,000 unit) capsule (Vitamin D3) pantoprazole 40 mg tablet,delayed 40 mg PO DAILY gastric erosions 12/09/21 05/03/22 Rx release (Protonix) #30 tabs tramadol 50 mg tablet 50 mg PO Q8 PRN Pain, Moderate 05/03/22 05/03/22 History Patient History Medical History (Updated 05/03/22 @ 21:52 by Fariba Ramsey, DO) Acute pancreatitis Anemia Aortic valve sclerosis Bladder stones BPH (benign prostatic hyperplasia) Centrilobular emphysema DDD (degenerative disc disease) Hearing deficit History of colon polyps History of COVID-19 09/11/21 @ [facility] (asymptomatic, tested prior to procedure)--no issues History of hypertension controlled since weight loss Left hip pain Lung nodule Mandibular fracture Osteoarthritis Spinal stenosis B/L LE radiculopathy Surgical History History of appendectomy History of carpal tunnel surgery RIGHT HAND History of colonoscopy History of ERCP (~11/30/20) History of esophagogastroduodenoscopy (EGD) last 09/29/21 @ [place] History of tonsillectomy and adenoidectomy Hx of hernia repair RIGHT INGUINAL Hx of toe surgery HAD TOENAIL REMOVED IN OFFICE 12/2018 Hx of tonsillectomy Previous back surgery Family History Mother Liver cancer Social History Smoking Status: Never smoker Tobacco Type: Cigarettes Second Hand Exposure: No; Hx Alcohol Use: No Hx Substance Use: No Preferred Language: Singaporean Communication Ability: Effective Visual Impairment: No Limitations Facility Service Associate Required: No Beliefs That Will Affect Care: None marital status: Current Living Situation: Alone Current Living Situation Comment: 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 HE IS TRYING TO FIND SOMEONE Feels Safe at Home: Yes Safety Concerns: Feels Safe At This Time Assistive Devices: Cane Physical Exam Physical Exam: large wound left dorsal hand, measuring 15 x 7 cm, with exposed blood vessels, significant ecchymosis of surrounding soft tissue and edema. areas of questionable necrosis of skin. wound bed both granulation tissue with some fibrin. Results & Data ([facility]) Vital Signs (Past 12 Hours) Vital Signs Temp Pulse Resp BP Pulse Ox O2 Del Method 05/05/22 11:56 36.8 C 72 19 131/68 93 Room Air 05/05/22 07:12 36.8 C 66 19 141/70 H 93 Room Air 05/05/22 03:00 36.6 C 63 20 110/68 98 Room Air PG Care Time/CCT Total # of Minutes Spent Total Time Spent with Patient: Total time spent is greater than 50% in coordination of care (as documented) at patient's floor/unit and/or counseling patient: Coding Level of Care Code 92132 Inpt Consult Level 3 Diagnoses Skin tear of left hand without complication S61.412A
[2022-05-05] MEDS: CEFEPIME 1,000 MG in SYRINGE 0 ML IV SCH (14:07)
--- NOTE | 2022-05-05 15:38 | Hospitalist Progress Note ---
Date of Service May 05, 2022 Assessment & Plan (1) Fall: Plan: Mechanical fall with multiple areas of trauma Will monitor in PCU. Troponin elevated which may be related to YULISSA/demand ischemia. Check ECHO-normal LV size with moderate concentric LV hypertrophy, LV wall motion is normal with EF of 60 to 65%, grade 1 diastolic dysfunction, aortic valve sclerosis without stenosis, moderate mitral valve annular calcification, trace mitral regurgitation, trace tricuspid regurgitation with mild aortic root dilatation at 4 cm Fall precautions PT/OT evaluations Remains medically stable (2) Rhabdomyolysis: Plan: Given IVF x 2 liter in ED - will give additional 2L at 80 cc/hr. Associated electrolyte abnormalities, YULISSA, and elevated LFTs Total CK level was 4614 on admission and today it went up to 5936 We will continue with intravenous fluid as advised Repeat lab in the morning-CK level is improving and needs little more than 2000 today Continue current intravenous fluid and advised in increase oral intake of fluid Monitor kidney function and CK level (3) YULISSA (acute kidney injury): Plan: Due to #2 - follow labs, receiving IVF Creatinine has been improving and it is 1.4 to down from 2.23 on admission Will monitor BMP-creatinine remains stable (4) UTI (urinary tract infection): Plan: Await urine culture. Continue cefepime as started in the ED Continue current antibiotic No definite UTI we will change IV antibiotic to oral cefdinir for a total of 5- day (5) Skin tear of left hand without complication: Plan: - Wound care consult -Appreciate input and recommendation -Appreciate plastic surgery input and recommended (6) Dehydration: Plan: IVF as above (7) BPH (benign prostatic hyperplasia): Plan: - Continue home meds (8) DDD (degenerative disc disease): (9) Lung nodule: Plan: Will need to be followed up as outpatient (10) Non-traumatic rhabdomyolysis: Plan Pt seen and reviewed with collaborating physician, Dr. Ramsey. Plan of care discussed and as outlined above. Code Status: Full Code DVT Prophylaxis: SCDs for now - re-evaluate in AM Will start subcu Lovenox Admission and Anticipated Discharge Date Admission Date: May 03, 2022 Subjective 05/04/2022 The patient was seen and examined in telemetry unit He complains to pain in the left hand and left leg Denies any other symptoms of chest pain, shortness of breath or palpitation No abdominal pain, nausea and or vomiting 05/05/2022 The patient was seen and examined in telemetry unit He remains stable and complains to have some pain in the left hand and also left lower extremity He denies any chest pain, shortness of breath or palpitation No fever and or chills Complains pain with cough Review of Systems Review of Systems: All systems reviewed and are unremarkable except as noted below Physical Exam Physical Exam: Lying in bed comfortably Constitutional: + ill appearing and average body habitus Eyes: PERRL, conjunctivae normal, anicteric sclerae ENMT: external ear and nose normal, oropharynx normal Neck: trachea midline, no thyromegaly Respiratory: no respiratory distress Auscultation: + diminished lung sounds and + crackles (Minimal crackles at the bases) Cardiovascular: Rate/Rhythm: regular rate and regular rhythm; not tachycardic Heart Sounds: normal S1, normal S2 and + murmur Extremities: no edema Gastrointestinal (Abdomen): Inspection/Auscultation: normal bowel sounds; abdomen not distended Percussion/Palpation: abdomen soft; abdomen nontender Musculoskeletal: Extensive bruising and tear of the dorsum of the left hand. Minor bruising involving the knee area on the left side Neurologic: normal touch/pain/proprioception and moves all extremities; no focal motor deficits Lymphatic: no cervical or axillary lymphadenopathy Results & Data Results & Data ([facility]) Vital Signs (Past 12 Hours) Vital Signs Temp Pulse Resp BP Pulse Ox O2 Del Method 05/05/22 15:04 Room Air 05/05/22 11:56 36.8 C 72 19 131/68 93 Room Air 05/05/22 07:12 36.8 C 66 19 141/70 H 93 Room Air Laboratory Results Short CBC 05/05/22 Range/Units 08:14 WBC 12.36 H (4.8-10.8) K/ul Hgb 14.1 (14.0-18.0) g/dl Hct 41.6 (40.1-51.0) % Plt Count 212 (130-400) K/uL BMP 05/05/22 08:14 Sodium 140 Potassium 3.7 Chloride 109 H Carbon Dioxide 26 BUN 20 Creatinine 0.87 D Glucose 72 Calcium 9.4 Cardiac Enzymes 05/05/22 Range/Units 08:14 Total Creatine Kinase 2286 H (30-223) U/L Liver Function 05/05/22 Range/Units 08:14 Total Bilirubin 1.2 H (0.2-1.0) mg/dl Direct Bilirubin 0.2 (0-0.2) mg/dl AST 208 H (13-39) U/L ALT 101 H (7-52) U/L Alkaline Phosphatase 76 (34-104) U/L Albumin 3.1 L (3.4-5.0) gm/dl Medications Administered Current Inpatient Medications Acetaminophen (Acetaminophen 325 Mg Tab) 650 mg PO Q8H [facility] Stop: 06/02/22 18:29 Last Admin: 05/05/22 08:13 Dose: 650 mg Cefdinir (Cefdinir 300 Mg Cap) 300 mg PO Q12H [facility]; Protocol Stop: 05/08/22 14:59 Guaifenesin (Guaifenesin 600 Mg Tabcr) 600 mg PO Q12 [facility] Stop: 06/04/22 20:59 Hydromorphone HCl (Hydromorphone Inj 0.5 Mg/0.5 Ml Syr) 0.25 mg IV Q6H PRN PRN Reason: Pain Stop: 05/18/22 19:33 Last Admin: 05/04/22 21:10 Dose: 0.25 mg Melatonin (Melatonin 3 Mg Tab) 3 mg PO HS PRN PRN Reason: Sleep Stop: 06/03/22 19:33 Last Admin: 05/04/22 21:10 Dose: 3 mg Pantoprazole Sodium (Pantoprazole 40 Mg Tab) 40 mg PO DAILY [facility] Stop: 06/03/22 08:59 Last Admin: 05/05/22 08:13 Dose: 40 mg Tamsulosin HCl (Tamsulosin Hcl 0.4 Mg Cap) 0.4 mg PO HS [facility] Stop: 06/02/22 21:58 Last Admin: 05/04/22 21:10 Dose: Not Given Tramadol HCl (Tramadol Hcl 50 Mg Tablet) 25 - 50 mg PO Q4H PRN PRN Reason: Pain Stop: 06/03/22 19:34 (1) UTI (urinary tract infection) Hematuria presence: with hematuria Urinary tract infection type: site unspecified Qualified Code(s): N39.0 - Urinary tract infection, site not specified; R31.9 - Hematuria, unspecified
[2022-05-05] MEDS: guaiFENesin 600 MG TABCR PO SCH (20:17)
[2022-05-05] MEDS: CEFDINIR 300 MG CAP PO SCH (20:17)
[2022-05-05] MEDS: TAMSULOSIN HCL 0.4 MG CAP PO SCH (20:18)
[2022-05-06] MEDS: MELATONIN 3 MG TAB PO PRN (00:09)
[2022-05-06] MEDS: ACETAMINOPHEN 325 MG TAB PO SCH ×3 (03:32→18:25)
[2022-05-06 07:01] LABS: Basophils # (auto) 0.04 K/uL (0-0.2); Basophils % (auto) 0.5 %; Eosinophils # (auto) 0.06 K/uL (0-0.50); Eosinophils % (auto) 0.7 %; Hematocrit (blood only) 38.1 % (40.1-51.0); Hemoglobin 13.2 g/dl (14.0-18.0); Immature Granulocytes # (auto) 0.04 K/uL (0.00-0.02); Immature Granulocytes % (auto) 0.5 %; Lymphocytes # (auto) 0.78 K/uL (1.2-3.4); Mean Corpuscular Hemoglobin 30.8 pg (25.0-34.0); Mean Corpuscular Hgb Conc 34.6 g/dL (32.0-36.0); Mean Platelet Volume 9.6 fL (9.4-12.4); Monocytes # (auto) 0.44 K/uL (0.24-0.82); Monocytes % (auto) 5.1 %; Neutrophils # (auto) 7.28 K/uL (1.4-6.5); Neutrophils % (auto) 84.2 %; Platelet Count 194 K/uL (130-400); RDW Coefficient of Variation 13.8 % (11.5-14.5); Red Blood Count 4.28 M/uL (4.63-6.08); White Blood Count 8.64 K/ul (4.8-10.8)
[2022-05-06 07:28] LABS: Albumin Level 2.9 gm/dl (3.4-5.0); BUN Creatinine Ratio 22.9 (10-20); Bilirubin Direct 0.2 mg/dl (0-0.2); Calcium 8.7 mg/dl (8.5-10.1); Creatinine Clr Calc Pharmacy 71.5 ml/min; Est GFR (African American) 99.7 ml/min; Est GFR (Non-African American) 86.1 ml/min; Potassium 3.4 mmol/L (3.5-5.1); Total Protein 5.5 gm/dl (6.0-8.3)
[2022-05-06] MEDS ORDERED: POTASSIUM CHLORIDE CRTAB 20 MEQ TABCR PO STA (08:00)
[2022-05-06] MEDS: CEFDINIR 300 MG CAP PO SCH ×2 (08:20→20:49)
[2022-05-06] MEDS: PANTOprazole 40 MG TAB PO SCH (08:21)
[2022-05-06] MEDS: guaiFENesin 600 MG TABCR PO SCH ×2 (08:21→20:49)
[2022-05-06] MEDS: ENOXAPARIN INJ 30 MG/0.3 ML SYR SQ SCH (08:21)
--- NOTE | 2022-05-06 15:04 | Hospitalist Progress Note ---
Date of Service May 06, 2022 Assessment & Plan (1) Fall: Plan: Mechanical fall with multiple areas of trauma Will monitor in PCU. Troponin elevated which may be related to YULISSA/demand ischemia. Check ECHO-normal LV size with moderate concentric LV hypertrophy, LV wall motion is normal with EF of 60 to 65%, grade 1 diastolic dysfunction, aortic valve sclerosis without stenosis, moderate mitral valve annular calcification, trace mitral regurgitation, trace tricuspid regurgitation with mild aortic root dilatation at 4 cm Fall precautions PT/OT evaluations Remains medically stable Getting better gradually (2) Rhabdomyolysis: Plan: Given IVF x 2 liter in ED - will give additional 2L at 80 cc/hr. Associated electrolyte abnormalities, YULISSA, and elevated LFTs Total CK level was 4614 on admission and today it went up to 5936 We will continue with intravenous fluid as advised Repeat lab in the morning-CK level is improving and needs little more than 2000 today Continue current intravenous fluid and advised in increase oral intake of fluid Monitor kidney function and CK level-has improved a lot Advised to drink more fluid (3) YULISSA (acute kidney injury): Plan: Due to #2 - follow labs, receiving IVF Creatinine has been improving and it is 1.4 to down from 2.23 on admission Will monitor BMP-creatinine remains stable Creatinine has been normalized (4) UTI (urinary tract infection): Plan: Await urine culture. Continue cefepime as started in the ED Continue current antibiotic No definite UTI we will change IV antibiotic to oral cefdinir for a total of 5- day Symptoms of UTI (5) Skin tear of left hand without complication: Plan: - Wound care consult -Appreciate input and recommendation -Appreciate plastic surgery input and recommended (6) Dehydration: Plan: IVF as above (7) BPH (benign prostatic hyperplasia): Plan: - Continue home meds (8) DDD (degenerative disc disease): (9) Lung nodule: Plan: Will need to be followed up as outpatient (10) Non-traumatic rhabdomyolysis: Plan Pt seen and reviewed with collaborating physician, Dr. Ramsey. Plan of care discussed and as outlined above. Code Status: Full Code DVT Prophylaxis: SCDs for now - re-evaluate in AM Will start subcu Lovenox Admission and Anticipated Discharge Date Admission Date: May 03, 2022 Subjective 05/04/2022 The patient was seen and examined in telemetry unit He complains to pain in the left hand and left leg Denies any other symptoms of chest pain, shortness of breath or palpitation No abdominal pain, nausea and or vomiting 05/05/2022 The patient was seen and examined in telemetry unit He remains stable and complains to have some pain in the left hand and also left lower extremity He denies any chest pain, shortness of breath or palpitation No fever and or chills Complains pain with cough 05/06/2022 The patient was seen and examined in telemetry unit He has been feeling a little better but he still remains weak and lethargic Denies any other symptoms Review of Systems Review of Systems: All systems reviewed and are unremarkable except as noted below Physical Exam Physical Exam: Lying in bed comfortably Constitutional: + ill appearing and average body habitus Eyes: PERRL, conjunctivae normal, anicteric sclerae ENMT: external ear and nose normal, oropharynx normal Neck: trachea midline, no thyromegaly Respiratory: no respiratory distress Auscultation: + diminished lung sounds and + crackles (Minimal crackles at the bases) Cardiovascular: Rate/Rhythm: regular rate and regular rhythm; not tachycardic Heart Sounds: normal S1, normal S2 and + murmur Extremities: no edema Gastrointestinal (Abdomen): Inspection/Auscultation: normal bowel sounds; abdomen not distended Percussion/Palpation: abdomen soft; abdomen nontender Musculoskeletal: Pain in the right lower extremity and left hand Neurologic: normal touch/pain/proprioception and moves all extremities; no focal motor deficits Lymphatic: no cervical or axillary lymphadenopathy Results & Data Results & Data ([facility]) Vital Signs (Past 12 Hours) Vital Signs Temp Pulse Pulse Resp BP Pulse Ox O2 Del Method 05/06/22 10:59 37.2 C 75 18 115/65 93 Room Air 05/06/22 09:42 72 05/06/22 07:05 36.6 C 75 19 134/68 92 Room Air 05/06/22 03:42 36.4 C L 74 18 129/76 96 Room Air Laboratory Results Short CBC 05/06/22 Range/Units 06:47 WBC 8.64 (4.8-10.8) K/ul Hgb 13.2 L (14.0-18.0) g/dl Hct 38.1 L (40.1-51.0) % Plt Count 194 (130-400) K/uL BMP 05/06/22 06:47 Sodium 142 Potassium 3.4 L Chloride 111 H Carbon Dioxide 25 BUN 16 Creatinine 0.70 Glucose 99 Calcium 8.7 Cardiac Enzymes 05/06/22 Range/Units 06:47 Total Creatine Kinase 914 H (30-223) U/L Liver Function 05/06/22 Range/Units 06:47 Total Bilirubin 1.0 (0.2-1.0) mg/dl Direct Bilirubin 0.2 (0-0.2) mg/dl AST 127 H (13-39) U/L ALT 84 H (7-52) U/L Alkaline Phosphatase 67 (34-104) U/L Albumin 2.9 L (3.4-5.0) gm/dl Medications Administered Current Inpatient Medications Acetaminophen (Acetaminophen 325 Mg Tab) 650 mg PO Q8H [facility] Stop: 06/02/22 18:29 Last Admin: 05/06/22 10:42 Dose: 650 mg Cefdinir (Cefdinir 300 Mg Cap) 300 mg PO Q12H [facility]; Protocol Stop: 05/08/22 14:59 Last Admin: 05/06/22 08:20 Dose: 300 mg Enoxaparin Sodium (Enoxaparin Inj 30 Mg/0.3 Ml Syr) 30 mg SQ QAM [facility] Stop: 06/05/22 08:59 Last Admin: 05/06/22 08:21 Dose: 30 mg Guaifenesin (Guaifenesin 600 Mg Tabcr) 600 mg PO Q12 [facility] Stop: 06/04/22 20:59 Last Admin: 05/06/22 08:21 Dose: 600 mg Hydromorphone HCl (Hydromorphone Inj 0.5 Mg/0.5 Ml Syr) 0.25 mg IV Q6H PRN PRN Reason: Pain Stop: 05/18/22 19:33 Last Admin: 05/04/22 21:10 Dose: 0.25 mg Melatonin (Melatonin 3 Mg Tab) 3 mg PO HS PRN PRN Reason: Sleep Stop: 06/03/22 19:33 Last Admin: 05/06/22 00:09 Dose: 3 mg Pantoprazole Sodium (Pantoprazole 40 Mg Tab) 40 mg PO DAILY [facility] Stop: 06/03/22 08:59 Last Admin: 05/06/22 08:21 Dose: 40 mg Tamsulosin HCl (Tamsulosin Hcl 0.4 Mg Cap) 0.4 mg PO HS [facility] Stop: 06/02/22 21:58 Last Admin: 05/05/22 20:18 Dose: 0.4 mg Tramadol HCl (Tramadol Hcl 50 Mg Tablet) 25 - 50 mg PO Q4H PRN PRN Reason: Pain Stop: 06/03/22 19:34 Last Admin: 05/06/22 12:26 Dose: 50 mg (1) UTI (urinary tract infection) Hematuria presence: with hematuria Urinary tract infection type: site unspecified Qualified Code(s): N39.0 - Urinary tract infection, site not specified; R31.9 - Hematuria, unspecified
[2022-05-06] MEDS: TAMSULOSIN HCL 0.4 MG CAP PO SCH (20:49)
[2022-05-07] MEDS: ACETAMINOPHEN 325 MG TAB PO SCH ×3 (02:26→18:21)
[2022-05-07] MEDS: ENOXAPARIN INJ 30 MG/0.3 ML SYR SQ SCH (08:03)
[2022-05-07] MEDS: PANTOprazole 40 MG TAB PO SCH (08:03)
[2022-05-07] MEDS: CEFDINIR 300 MG CAP PO SCH ×2 (08:03→20:22)
[2022-05-07] MEDS: guaiFENesin 600 MG TABCR PO SCH ×2 (08:03→20:21)
--- NOTE | 2022-05-07 14:26 | Hospitalist Progress Note ---
Date of Service May 07, 2022 Assessment & Plan (1) Fall: Plan: Mechanical fall with multiple areas of trauma Will monitor in PCU. Troponin elevated which may be related to YULISSA/demand ischemia. Check ECHO-normal LV size with moderate concentric LV hypertrophy, LV wall motion is normal with EF of 60 to 65%, grade 1 diastolic dysfunction, aortic valve sclerosis without stenosis, moderate mitral valve annular calcification, trace mitral regurgitation, trace tricuspid regurgitation with mild aortic root dilatation at 4 cm Fall precautions PT/OT evaluations Remains medically stable Getting better gradually Awaiting placement (2) Rhabdomyolysis: Plan: Given IVF x 2 liter in ED - will give additional 2L at 80 cc/hr. Associated electrolyte abnormalities, YULISSA, and elevated LFTs Total CK level was 4614 on admission and today it went up to 5936 We will continue with intravenous fluid as advised Repeat lab in the morning-CK level is improving and needs little more than 2000 today Continue current intravenous fluid and advised in increase oral intake of fluid Monitor kidney function and CK level-has improved a lot Advised to drink more fluid We will check another CPK level tomorrow (3) YULISSA (acute kidney injury): Plan: Due to #2 - follow labs, receiving IVF Creatinine has been improving and it is 1.4 to down from 2.23 on admission Will monitor BMP-creatinine remains stable Creatinine has been normalized (4) UTI (urinary tract infection): Plan: Await urine culture. Continue cefepime as started in the ED Continue current antibiotic No definite UTI we will change IV antibiotic to oral cefdinir for a total of 5- day Symptoms of UTI Clinically much improved (5) Skin tear of left hand without complication: Plan: - Wound care consult -Appreciate input and recommendation -Appreciate plastic surgery input and recommended (6) Dehydration: Plan: IVF as above (7) BPH (benign prostatic hyperplasia): Plan: - Continue home meds (8) DDD (degenerative disc disease): (9) Lung nodule: Plan: Will need to be followed up as outpatient (10) Non-traumatic rhabdomyolysis: Plan Pt seen and reviewed with collaborating physician, Dr. Ramsey. Plan of care discussed and as outlined above. Code Status: Full Code DVT Prophylaxis: SCDs for now - re-evaluate in AM Will start subcu Lovenox Admission and Anticipated Discharge Date Admission Date: May 03, 2022 Subjective 05/04/2022 The patient was seen and examined in telemetry unit He complains to pain in the left hand and left leg Denies any other symptoms of chest pain, shortness of breath or palpitation No abdominal pain, nausea and or vomiting 05/05/2022 The patient was seen and examined in telemetry unit He remains stable and complains to have some pain in the left hand and also left lower extremity He denies any chest pain, shortness of breath or palpitation No fever and or chills Complains pain with cough 05/06/2022 The patient was seen and examined in telemetry unit He has been feeling a little better but he still remains weak and lethargic Denies any other symptoms 05/07/2022 The patient was seen and examined in telemetry unit He has been stable with minimal pain in the left hand and also right foot He knows that he will be going to rehab soon Review of Systems Review of Systems: All systems reviewed and are unremarkable except as noted below Physical Exam Physical Exam: Lying in bed comfortably Constitutional: + ill appearing and average body habitus Eyes: PERRL, conjunctivae normal, anicteric sclerae ENMT: external ear and nose normal, oropharynx normal Neck: trachea midline, no thyromegaly Respiratory: no respiratory distress Auscultation: + diminished lung sounds and + crackles (Minimal crackles at the bases) Cardiovascular: Rate/Rhythm: regular rate and regular rhythm; not tachycardic Heart Sounds: normal S1, normal S2 and + murmur Extremities: no edema Gastrointestinal (Abdomen): Inspection/Auscultation: normal bowel sounds; abdomen not distended Percussion/Palpation: abdomen soft; abdomen nontender Musculoskeletal: Left hand is bandaged and is painful with movement. Right foot is bandaged minimal pain with movement Neurologic: normal touch/pain/proprioception and moves all extremities; no focal motor deficits Lymphatic: no cervical or axillary lymphadenopathy Results & Data Results & Data ([facility]) Vital Signs (Past 12 Hours) Vital Signs Temp Pulse Pulse Resp BP Pulse Ox O2 Del Method 05/07/22 07:45 63 05/07/22 07:07 36.5 C 70 17 130/75 94 Room Air 05/07/22 03:48 36.4 C L 65 15 124/68 93 Room Air Medications Administered Current Inpatient Medications Acetaminophen (Acetaminophen 325 Mg Tab) 650 mg PO Q8H [facility] Stop: 06/02/22 18:29 Last Admin: 05/07/22 10:45 Dose: 650 mg Cefdinir (Cefdinir 300 Mg Cap) 300 mg PO Q12H [facility]; Protocol Stop: 05/08/22 14:59 Last Admin: 05/07/22 08:03 Dose: 300 mg Enoxaparin Sodium (Enoxaparin Inj 30 Mg/0.3 Ml Syr) 30 mg SQ QAM [facility] Stop: 06/05/22 08:59 Last Admin: 05/07/22 08:03 Dose: 30 mg Guaifenesin (Guaifenesin 600 Mg Tabcr) 600 mg PO Q12 [facility] Stop: 06/04/22 20:59 Last Admin: 05/07/22 08:03 Dose: 600 mg Hydromorphone HCl (Hydromorphone Inj 0.5 Mg/0.5 Ml Syr) 0.25 mg IV Q6H PRN PRN Reason: Pain Stop: 05/18/22 19:33 Last Admin: 05/04/22 21:10 Dose: 0.25 mg Melatonin (Melatonin 3 Mg Tab) 3 mg PO HS PRN PRN Reason: Sleep Stop: 06/03/22 19:33 Last Admin: 05/06/22 00:09 Dose: 3 mg Pantoprazole Sodium (Pantoprazole 40 Mg Tab) 40 mg PO DAILY [facility] Stop: 06/03/22 08:59 Last Admin: 05/07/22 08:03 Dose: 40 mg Tamsulosin HCl (Tamsulosin Hcl 0.4 Mg Cap) 0.4 mg PO HS [facility] Stop: 06/02/22 21:58 Last Admin: 05/06/22 20:49 Dose: 0.4 mg Tramadol HCl (Tramadol Hcl 50 Mg Tablet) 25 - 50 mg PO Q4H PRN PRN Reason: Pain Stop: 06/03/22 19:34 Last Admin: 05/06/22 12:26 Dose: 50 mg (1) UTI (urinary tract infection) Hematuria presence: with hematuria Urinary tract infection type: site unspecified Qualified Code(s): N39.0 - Urinary tract infection, site not specified; R31.9 - Hematuria, unspecified
[2022-05-07] MEDS: MELATONIN 3 MG TAB PO PRN (20:21)
[2022-05-07] MEDS: TAMSULOSIN HCL 0.4 MG CAP PO SCH (20:22)
[2022-05-08] MEDS: ACETAMINOPHEN 325 MG TAB PO SCH ×3 (02:43→20:12)
[2022-05-08 06:05] LABS: Basophils # (auto) 0.04 K/uL (0-0.2); Basophils % (auto) 0.6 %; Eosinophils # (auto) 0.28 K/uL (0-0.50); Eosinophils % (auto) 4.4 %; Hematocrit (blood only) 39.9 % (40.1-51.0); Hemoglobin 13.7 g/dl (14.0-18.0); Immature Granulocytes # (auto) 0.04 K/uL (0.00-0.02); Immature Granulocytes % (auto) 0.6 %; Lymphocytes # (auto) 0.87 K/uL (1.2-3.4); Lymphocytes % (auto) 13.5 %; Mean Corpuscular Hemoglobin 31.3 pg (25.0-34.0); Mean Corpuscular Hgb Conc 34.3 g/dL (32.0-36.0); Mean Corpuscular Volume 91.1 fL (80.0-100.0); Mean Platelet Volume 9.3 fL (9.4-12.4); Monocytes # (auto) 0.52 K/uL (0.24-0.82); Monocytes % (auto) 8.1 %; Neutrophils # (auto) 4.68 K/uL (1.4-6.5); Neutrophils % (auto) 72.8 %; Platelet Count 228 K/uL (130-400); RDW Coefficient of Variation 13.8 % (11.5-14.5); RDW Standard Deviation 45.7 fL (36.4-46.3); Red Blood Count 4.38 M/uL (4.63-6.08); White Blood Count 6.43 K/ul (4.8-10.8)
[2022-05-08 06:12] LABS: BUN Creatinine Ratio 25.4 (10-20); Calcium 9.1 mg/dl (8.5-10.1); Est GFR (African American) 101.5 ml/min; Est GFR (Non-African American) 87.6 ml/min; Potassium 3.6 mmol/L (3.5-5.1)
[2022-05-08] MEDS: CEFDINIR 300 MG CAP PO SCH (08:30)
[2022-05-08] MEDS: guaiFENesin 600 MG TABCR PO SCH ×2 (08:30→20:12)
[2022-05-08] MEDS: ENOXAPARIN INJ 30 MG/0.3 ML SYR SQ SCH (08:30)
[2022-05-08] MEDS: PANTOprazole 40 MG TAB PO SCH (08:30)
[2022-05-08] MEDS ORDERED: MAGNESIUM HYDROXIDE SUSP 30 ML UDC PO PRN (12:44)
--- NOTE | 2022-05-08 13:56 | Hospitalist Progress Note ---
Date of Service May 08, 2022 Assessment & Plan (1) Fall: Plan: Mechanical fall with multiple areas of trauma Will monitor in PCU. Troponin elevated which may be related to YULISSA/demand ischemia. Check ECHO-normal LV size with moderate concentric LV hypertrophy, LV wall motion is normal with EF of 60 to 65%, grade 1 diastolic dysfunction, aortic valve sclerosis without stenosis, moderate mitral valve annular calcification, trace mitral regurgitation, trace tricuspid regurgitation with mild aortic root dilatation at 4 cm Fall precautions PT/OT evaluations Remains medically stable Getting better gradually Remains stable and awaiting transfer to the SNF (2) Rhabdomyolysis: Plan: Given IVF x 2 liter in ED - will give additional 2L at 80 cc/hr. Associated electrolyte abnormalities, YULISSA, and elevated LFTs Total CK level was 4614 on admission and today it went up to 5936 We will continue with intravenous fluid as advised Repeat lab in the morning-CK level is improving and needs little more than 2000 today Continue current intravenous fluid and advised in increase oral intake of fluid Monitor kidney function and CK level-has improved a lot Advised to drink more fluid We will check another CPK level tomorrow-CPK is down to below 900 No more IV fluid and advised to drink more fluid (3) YULISSA (acute kidney injury): Plan: Due to #2 - follow labs, receiving IVF Creatinine has been improving and it is 1.4 to down from 2.23 on admission Will monitor BMP-creatinine remains stable Creatinine has been normalized (4) UTI (urinary tract infection): Plan: Await urine culture. Continue cefepime as started in the ED Continue current antibiotic No definite UTI we will change IV antibiotic to oral cefdinir for a total of 5- day Symptoms of UTI Clinically much improved (5) Skin tear of left hand without complication: Plan: - Wound care consult -Appreciate input and recommendation -Appreciate plastic surgery input and recommended (6) Dehydration: Plan: IVF as above (7) BPH (benign prostatic hyperplasia): Plan: - Continue home meds (8) DDD (degenerative disc disease): (9) Lung nodule: Plan: Will need to be followed up as outpatient (10) Non-traumatic rhabdomyolysis: Plan Pt seen and reviewed with collaborating physician, Dr. Ramsey. Plan of care discussed and as outlined above. Code Status: Full Code DVT Prophylaxis: SCDs for now - re-evaluate in AM Will start subcu Lovenox Admission and Anticipated Discharge Date Admission Date: May 03, 2022 Subjective 05/04/2022 The patient was seen and examined in telemetry unit He complains to pain in the left hand and left leg Denies any other symptoms of chest pain, shortness of breath or palpitation No abdominal pain, nausea and or vomiting 05/05/2022 The patient was seen and examined in telemetry unit He remains stable and complains to have some pain in the left hand and also left lower extremity He denies any chest pain, shortness of breath or palpitation No fever and or chills Complains pain with cough 05/06/2022 The patient was seen and examined in telemetry unit He has been feeling a little better but he still remains weak and lethargic Denies any other symptoms 05/07/2022 The patient was seen and examined in telemetry unit He has been stable with minimal pain in the left hand and also right foot He knows that he will be going to rehab soon 05/08/2022 The patient was seen and examined in telemetry unit He has been stable Pain is controlled and awaiting transfer to a facility We will transfer to medical Review of Systems Review of Systems: All systems reviewed and are unremarkable except as noted below Physical Exam Physical Exam: Lying in bed comfortably Constitutional: + ill appearing and average body habitus Eyes: PERRL, conjunctivae normal, anicteric sclerae ENMT: external ear and nose normal, oropharynx normal Neck: trachea midline, no thyromegaly Respiratory: no respiratory distress Auscultation: + diminished lung sounds and + crackles (Minimal crackles at the bases) Cardiovascular: Rate/Rhythm: regular rate and regular rhythm; not tachycardic Heart Sounds: normal S1, normal S2 and + murmur Extremities: no edema Gastrointestinal (Abdomen): Inspection/Auscultation: normal bowel sounds; abdomen not distended Percussion/Palpation: abdomen soft; abdomen nontender Neurologic: normal touch/pain/proprioception and moves all extremities; no focal motor deficits Lymphatic: no cervical or axillary lymphadenopathy Results & Data Results & Data ([facility]) Vital Signs (Past 12 Hours) Vital Signs Temp Pulse Pulse Resp BP Pulse Ox O2 Del Method 05/08/22 11:28 36.4 C L 79 20 131/67 93 Room Air 05/08/22 07:23 98 H 05/08/22 07:17 36.3 C L 74 20 137/72 93 Room Air 05/08/22 03:28 36.8 C 66 18 143/75 H 92 Room Air Laboratory Results Short CBC 05/08/22 Range/Units 05:28 WBC 6.43 (4.8-10.8) K/ul Hgb 13.7 L (14.0-18.0) g/dl Hct 39.9 L (40.1-51.0) % Plt Count 228 (130-400) K/uL BMP 05/08/22 05:28 Sodium 142 Potassium 3.6 Chloride 109 H Carbon Dioxide 28 BUN 17 Creatinine 0.67 Glucose 101 H Calcium 9.1 Cardiac Enzymes 05/08/22 Range/Units 05:28 Total Creatine Kinase 847 H (30-223) U/L Medications Administered Current Inpatient Medications Acetaminophen (Acetaminophen 325 Mg Tab) 650 mg PO Q8H [facility] Stop: 06/02/22 18:29 Last Admin: 05/08/22 11:05 Dose: 650 mg Cefdinir (Cefdinir 300 Mg Cap) 300 mg PO Q12H [facility]; Protocol Stop: 05/08/22 14:59 Last Admin: 05/08/22 08:30 Dose: 300 mg Enoxaparin Sodium (Enoxaparin Inj 30 Mg/0.3 Ml Syr) 30 mg SQ QAM [facility] Stop: 06/05/22 08:59 Last Admin: 05/08/22 08:30 Dose: 30 mg Guaifenesin (Guaifenesin 600 Mg Tabcr) 600 mg PO Q12 [facility] Stop: 06/04/22 20:59 Last Admin: 05/08/22 08:30 Dose: 600 mg Hydromorphone HCl (Hydromorphone Inj 0.5 Mg/0.5 Ml Syr) 0.25 mg IV Q6H PRN PRN Reason: Pain Stop: 05/18/22 19:33 Last Admin: 05/04/22 21:10 Dose: 0.25 mg Magnesium Hydroxide (Magnesium Hydroxide Susp 30 Ml Udc) 30 ml PO NOW PRN PRN Reason: Constipation Stop: 06/07/22 12:43 Melatonin (Melatonin 3 Mg Tab) 3 mg PO HS PRN PRN Reason: Sleep Stop: 06/03/22 19:33 Last Admin: 05/07/22 20:21 Dose: 3 mg Pantoprazole Sodium (Pantoprazole 40 Mg Tab) 40 mg PO DAILY [facility] Stop: 06/03/22 08:59 Last Admin: 05/08/22 08:30 Dose: 40 mg Tamsulosin HCl (Tamsulosin Hcl 0.4 Mg Cap) 0.4 mg PO HS [facility] Stop: 06/02/22 21:58 Last Admin: 05/07/22 20:22 Dose: 0.4 mg Tramadol HCl (Tramadol Hcl 50 Mg Tablet) 25 - 50 mg PO Q4H PRN PRN Reason: Pain Stop: 06/03/22 19:34 Last Admin: 05/06/22 12:26 Dose: 50 mg (1) UTI (urinary tract infection) Hematuria presence: with hematuria Urinary tract infection type: site unspecified Qualified Code(s): N39.0 - Urinary tract infection, site not specified; R31.9 - Hematuria, unspecified
[2022-05-08] MEDS: MELATONIN 3 MG TAB PO PRN (20:12)
[2022-05-08] MEDS: TAMSULOSIN HCL 0.4 MG CAP PO SCH (20:12)
[2022-05-09] MEDS: ACETAMINOPHEN 325 MG TAB PO SCH ×3 (02:14→18:05)
[2022-05-09] MEDS: PANTOprazole 40 MG TAB PO SCH (09:20)
[2022-05-09] MEDS: guaiFENesin 600 MG TABCR PO SCH ×2 (09:20→20:00)
[2022-05-09] MEDS: ENOXAPARIN INJ 30 MG/0.3 ML SYR SQ SCH (09:20)
--- NOTE | 2022-05-09 13:49 | Hospitalist Progress Note ---
Date of Service May 09, 2022 Assessment & Plan (1) Fall: Plan: Mechanical fall with multiple areas of trauma Will monitor in PCU. Troponin elevated which may be related to YULISSA/demand ischemia. Check ECHO-normal LV size with moderate concentric LV hypertrophy, LV wall motion is normal with EF of 60 to 65%, grade 1 diastolic dysfunction, aortic valve sclerosis without stenosis, moderate mitral valve annular calcification, trace mitral regurgitation, trace tricuspid regurgitation with mild aortic root dilatation at 4 cm Fall precautions PT/OT evaluations Remains medically stable Getting better gradually Remains stable and awaiting transfer to the SNF Accepted to [facility] and likely transfer tomorrow (2) Rhabdomyolysis: Plan: Given IVF x 2 liter in ED - will give additional 2L at 80 cc/hr. Associated electrolyte abnormalities, YULISSA, and elevated LFTs Total CK level was 4614 on admission and today it went up to 5936 We will continue with intravenous fluid as advised Repeat lab in the morning-CK level is improving and needs little more than 2000 today Continue current intravenous fluid and advised in increase oral intake of fluid Monitor kidney function and CK level-has improved a lot Advised to drink more fluid We will check another CPK level tomorrow-CPK is down to below 900 No more IV fluid and advised to drink more fluid Will check CPK (3) YULISSA (acute kidney injury): Plan: Due to #2 - follow labs, receiving IVF Creatinine has been improving and it is 1.4 to down from 2.23 on admission Will monitor BMP-creatinine remains stable Creatinine has been normalized Remains stable (4) UTI (urinary tract infection): Plan: Await urine culture. Continue cefepime as started in the ED Continue current antibiotic No definite UTI we will change IV antibiotic to oral cefdinir for a total of 5- day Symptoms of UTI Clinically much improved (5) Skin tear of left hand without complication: Plan: - Wound care consult -Appreciate input and recommendation -Appreciate plastic surgery input and recommended (6) Dehydration: Plan: IVF as above (7) BPH (benign prostatic hyperplasia): Plan: - Continue home meds (8) DDD (degenerative disc disease): (9) Lung nodule: Plan: Will need to be followed up as outpatient (10) Non-traumatic rhabdomyolysis: Plan Pt seen and reviewed with collaborating physician, Dr. Ramsey. Plan of care discussed and as outlined above. Code Status: Full Code DVT Prophylaxis: SCDs for now - re-evaluate in AM Will start subcu [facility] Admission and Anticipated Discharge Date Admission Date: May 03, 2022 Subjective 05/04/2022 The patient was seen and examined in telemetry unit He complains to pain in the left hand and left leg Denies any other symptoms of chest pain, shortness of breath or palpitation No abdominal pain, nausea and or vomiting 05/05/2022 The patient was seen and examined in telemetry unit He remains stable and complains to have some pain in the left hand and also left lower extremity He denies any chest pain, shortness of breath or palpitation No fever and or chills Complains pain with cough 05/06/2022 The patient was seen and examined in telemetry unit He has been feeling a little better but he still remains weak and lethargic Denies any other symptoms 05/07/2022 The patient was seen and examined in telemetry unit He has been stable with minimal pain in the left hand and also right foot He knows that he will be going to rehab soon 05/08/2022 The patient was seen and examined in telemetry unit He has been stable Pain is controlled and awaiting transfer to a facility We will transfer to medical 05/09/2022 The patient was seen and examined in telemetry unit He has been stable and awaiting placement Denies any significant symptoms except pain involving the bruised areas as before Review of Systems Review of Systems: All systems reviewed and are unremarkable except as noted below Constitutional: + fatigue; no fever and no chills Ear, Nose, Mouth, Throat: no nasal congestion, no nasal discharge and no sore throat Respiratory: no cough and no dyspnea Cardiovascular: + lightheadedness and + syncope; no chest pain, no palpitations and no edema Gastrointestinal: no abdominal pain, no nausea, no vomiting, no diarrhea/loose stools and no blood in stools Genitourinary: no dysuria or no hematuria Musculoskeletal: as per Subjective / HPI Integumentary: + wounds (related to fall today) Neurologic: + falls and + dizziness Psychiatric: no depression and no anxiety Physical Exam Physical Exam: Lying in bed comfortably Constitutional: + ill appearing and average body habitus Eyes: PERRL, conjunctivae normal, anicteric sclerae ENMT: external ear and nose normal, oropharynx normal Neck: trachea midline, no thyromegaly Respiratory: no respiratory distress Auscultation: + diminished lung sounds and + crackles (Minimal crackles at the bases) Cardiovascular: Rate/Rhythm: regular rate and regular rhythm; not tachycardic Heart Sounds: normal S1, normal S2 and + murmur Extremities: no edema Gastrointestinal (Abdomen): Inspection/Auscultation: normal bowel sounds; abdomen not distended Percussion/Palpation: abdomen soft; abdomen nontender Musculoskeletal: Pain with movement of the left hand and right lower extremity knee and also in ankle Neurologic: normal touch/pain/proprioception and moves all extremities; no focal motor deficits Lymphatic: no cervical or axillary lymphadenopathy Results & Data Results & Data ([facility]) Vital Signs (Past 12 Hours) Vital Signs Temp Pulse Resp BP Pulse Ox O2 Del Method 05/09/22 07:42 36.5 C 71 16 135/77 95 Room Air Medications Administered Current Inpatient Medications Acetaminophen (Acetaminophen 325 Mg Tab) 650 mg PO Q8H [facility] Stop: 06/02/22 18:29 Last Admin: 05/09/22 10:48 Dose: 650 mg Enoxaparin Sodium (Enoxaparin Inj 30 Mg/0.3 Ml Syr) 30 mg SQ QAM [facility] Stop: 06/05/22 08:59 Last Admin: 05/09/22 09:20 Dose: 30 mg Guaifenesin (Guaifenesin 600 Mg Tabcr) 600 mg PO Q12 [facility] Stop: 06/04/22 20:59 Last Admin: 05/09/22 09:20 Dose: 600 mg Hydromorphone HCl (Hydromorphone Inj 0.5 Mg/0.5 Ml Syr) 0.25 mg IV Q6H PRN PRN Reason: Pain Stop: 05/18/22 19:33 Last Admin: 05/04/22 21:10 Dose: 0.25 mg Magnesium Hydroxide (Magnesium Hydroxide Susp 30 Ml Udc) 30 ml PO NOW PRN PRN Reason: Constipation Stop: 06/07/22 12:43 Last Admin: 05/08/22 16:24 Dose: 30 ml Melatonin (Melatonin 3 Mg Tab) 3 mg PO HS PRN PRN Reason: Sleep Stop: 06/03/22 19:33 Last Admin: 05/08/22 20:12 Dose: 3 mg Pantoprazole Sodium (Pantoprazole 40 Mg Tab) 40 mg PO DAILY [facility] Stop: 06/03/22 08:59 Last Admin: 05/09/22 09:20 Dose: 40 mg Tamsulosin HCl (Tamsulosin Hcl 0.4 Mg Cap) 0.4 mg PO HS [facility] Stop: 06/02/22 21:58 Last Admin: 05/08/22 20:12 Dose: Not Given Tramadol HCl (Tramadol Hcl 50 Mg Tablet) 25 - 50 mg PO Q4H PRN PRN Reason: Pain Stop: 06/03/22 19:34 Last Admin: 05/06/22 12:26 Dose: 50 mg (1) UTI (urinary tract infection) Hematuria presence: with hematuria Urinary tract infection type: site unspecified Qualified Code(s): N39.0 - Urinary tract infection, site not specified; R31.9 - Hematuria, unspecified
[2022-05-09] MEDS: TAMSULOSIN HCL 0.4 MG CAP PO SCH (19:01)
[2022-05-10] MEDS: ACETAMINOPHEN 325 MG TAB PO SCH ×2 (01:56→11:00)
[2022-05-10 07:18] LABS: Basophils # (auto) 0.07 K/uL (0-0.2); Basophils % (auto) 0.8 %; Eosinophils # (auto) 0.39 K/uL (0-0.50); Eosinophils % (auto) 4.4 %; Hematocrit (blood only) 40.9 % (40.1-51.0); Hemoglobin 13.7 g/dl (14.0-18.0); Immature Granulocytes # (auto) 0.08 K/uL (0.00-0.02); Immature Granulocytes % (auto) 0.9 %; Lymphocytes # (auto) 0.87 K/uL (1.2-3.4); Lymphocytes % (auto) 9.9 %; Mean Corpuscular Hemoglobin 30.6 pg (25.0-34.0); Mean Corpuscular Hgb Conc 33.5 g/dL (32.0-36.0); Mean Corpuscular Volume 91.5 fL (80.0-100.0); Mean Platelet Volume 9.5 fL (9.4-12.4); Monocytes # (auto) 0.64 K/uL (0.24-0.82); Monocytes % (auto) 7.3 %; Neutrophils # (auto) 6.75 K/uL (1.4-6.5); Neutrophils % (auto) 76.7 %; Platelet Count 258 K/uL (130-400); RDW Coefficient of Variation 14.1 % (11.5-14.5); RDW Standard Deviation 46.8 fL (36.4-46.3); Red Blood Count 4.47 M/uL (4.63-6.08)
[2022-05-10] MEDS: PANTOprazole 40 MG TAB PO SCH (08:03)
[2022-05-10] MEDS: guaiFENesin 600 MG TABCR PO SCH (08:03)
[2022-05-10] MEDS: ENOXAPARIN INJ 30 MG/0.3 ML SYR SQ SCH (08:03)
[2022-05-10 08:06] LABS: BUN Creatinine Ratio 27.7 (10-20); Calcium 9.4 mg/dl (8.5-10.1); Creatinine Clr Calc Pharmacy 84.6 ml/min; Est GFR (African American) 102.8 ml/min; Est GFR (Non-African American) 88.7 ml/min; Potassium 4.1 mmol/L (3.5-5.1)
--- NOTE | 2022-05-10 12:20 | Hospitalist Progress Note ---
Date of Service May 10, 2022 Assessment & Plan (1) Fall: Plan: Mechanical fall with multiple areas of trauma Will monitor in PCU. Troponin elevated which may be related to YULISSA/demand ischemia. Check ECHO-normal LV size with moderate concentric LV hypertrophy, LV wall motion is normal with EF of 60 to 65%, grade 1 diastolic dysfunction, aortic valve sclerosis without stenosis, moderate mitral valve annular calcification, trace mitral regurgitation, trace tricuspid regurgitation with mild aortic root dilatation at 4 cm Fall precautions PT/OT evaluations Remains medically stable Getting better gradually Remains stable and awaiting transfer to the SNF Accepted to [facility] and likely transfer tomorrow Remains medically stable will be transferred to [facility] this afternoon (2) Rhabdomyolysis: Plan: Given IVF x 2 liter in ED - will give additional 2L at 80 cc/hr. Associated electrolyte abnormalities, YULISSA, and elevated LFTs Total CK level was 4614 on admission and today it went up to 5936 We will continue with intravenous fluid as advised Repeat lab in the morning-CK level is improving and needs little more than 2000 today Continue current intravenous fluid and advised in increase oral intake of fluid Monitor kidney function and CK level-has improved a lot Advised to drink more fluid We will check another CPK level tomorrow-CPK is down to below 900 No more IV fluid and advised to drink more fluid Will check CPK-reduced to 500 range Advised to drink more fluid (3) YULISSA (acute kidney injury): Plan: Due to #2 - follow labs, receiving IVF Creatinine has been improving and it is 1.4 to down from 2.23 on admission Will monitor BMP-creatinine remains stable Creatinine has been normalized Remains stable (4) UTI (urinary tract infection): Plan: Await urine culture. Continue cefepime as started in the ED Continue current antibiotic No definite UTI we will change IV antibiotic to oral cefdinir for a total of 5- day NO Symptoms of UTI Clinically much improved Antibiotic course is done (5) Skin tear of left hand without complication: Plan: - Wound care consult -Appreciate input and recommendation -Appreciate plastic surgery input and recommended -We will continue with the wound care dressing as per advice from the wound care nurse (6) Dehydration: Plan: IVF as above (7) BPH (benign prostatic hyperplasia): Plan: - Continue home meds (8) DDD (degenerative disc disease): (9) Lung nodule: Plan: Will need to be followed up as outpatient (10) Non-traumatic rhabdomyolysis: Plan Pt seen and reviewed with collaborating physician, Dr. Ramsey. Plan of care discussed and as outlined above. Code Status: Full Code DVT Prophylaxis: SCDs for now - re-evaluate in AM Will start subcu Lovenox Will be going to [facility] this afternoon Admission and Anticipated Discharge Date Admission Date: May 03, 2022 Subjective 05/04/2022 The patient was seen and examined in telemetry unit He complains to pain in the left hand and left leg Denies any other symptoms of chest pain, shortness of breath or palpitation No abdominal pain, nausea and or vomiting 05/05/2022 The patient was seen and examined in telemetry unit He remains stable and complains to have some pain in the left hand and also left lower extremity He denies any chest pain, shortness of breath or palpitation No fever and or chills Complains pain with cough 05/06/2022 The patient was seen and examined in telemetry unit He has been feeling a little better but he still remains weak and lethargic Denies any other symptoms 05/07/2022 The patient was seen and examined in telemetry unit He has been stable with minimal pain in the left hand and also right foot He knows that he will be going to rehab soon 05/08/2022 The patient was seen and examined in telemetry unit He has been stable Pain is controlled and awaiting transfer to a facility We will transfer to medical 05/09/2022 The patient was seen and examined in telemetry unit He has been stable and awaiting placement Denies any significant symptoms except pain involving the bruised areas as before 05/10/2022 The patient was seen and examined in medical floor He remains stable and complains minimal pain in the left hand and right lower e xtremity and right foot Denies any other symptoms Review of Systems Review of Systems: All systems reviewed and are unremarkable except as noted below Physical Exam Physical Exam: Lying in bed comfortably Constitutional: + ill appearing and average body habitus Eyes: PERRL, conjunctivae normal, anicteric sclerae ENMT: external ear and nose normal, oropharynx normal Neck: trachea midline, no thyromegaly Respiratory: no respiratory distress Auscultation: + diminished lung sounds and + crackles (Minimal crackles at the bases) Cardiovascular: Rate/Rhythm: regular rate and regular rhythm; not tachycardic Heart Sounds: normal S1, normal S2 and + murmur Extremities: no edema Gastrointestinal (Abdomen): Inspection/Auscultation: normal bowel sounds; abdomen not distended Percussion/Palpation: abdomen soft; abdomen nontender Musculoskeletal: Left hand is in bandage, right foot is in bandage Neurologic: normal touch/pain/proprioception and moves all extremities; no focal motor deficits Lymphatic: no cervical or axillary lymphadenopathy Results & Data Results & Data ([facility]) Vital Signs (Past 12 Hours) Vital Signs Temp Pulse Resp BP Pulse Ox O2 Del Method 05/10/22 07:51 36.4 C L 67 18 143/77 H 93 Room Air Laboratory Results Short CBC 05/10/22 Range/Units 06:19 WBC 8.80 (4.8-10.8) K/ul Hgb 13.7 L (14.0-18.0) g/dl Hct 40.9 (40.1-51.0) % Plt Count 258 (130-400) K/uL BMP 05/10/22 06:19 Sodium 143 Potassium 4.1 Chloride 108 H Carbon Dioxide 30 BUN 18 Creatinine 0.65 Glucose 86 Calcium 9.4 Cardiac Enzymes 05/10/22 Range/Units 06:19 Total Creatine Kinase 509 H (30-223) U/L Medications Administered Current Inpatient Medications Acetaminophen (Acetaminophen 325 Mg Tab) 650 mg PO Q8H [place] Stop: 06/02/22 18:29 Last Admin: 05/10/22 11:00 Dose: 650 mg Enoxaparin Sodium (Enoxaparin Inj 30 Mg/0.3 Ml Syr) 30 mg SQ QAM [place] Stop: 06/05/22 08:59 Last Admin: 05/10/22 08:03 Dose: 30 mg Guaifenesin (Guaifenesin 600 Mg Tabcr) 600 mg PO Q12 [place] Stop: 06/04/22 20:59 Last Admin: 05/10/22 08:03 Dose: 600 mg Hydromorphone HCl (Hydromorphone Inj 0.5 Mg/0.5 Ml Syr) 0.25 mg IV Q6H PRN PRN Reason: Pain Stop: 05/18/22 19:33 Last Admin: 05/04/22 21:10 Dose: 0.25 mg Magnesium Hydroxide (Magnesium Hydroxide Susp 30 Ml Udc) 30 ml PO NOW PRN PRN Reason: Constipation Stop: 06/07/22 12:43 Last Admin: 05/08/22 16:24 Dose: 30 ml Melatonin (Melatonin 3 Mg Tab) 3 mg PO HS PRN PRN Reason: Sleep Stop: 06/03/22 19:33 Last Admin: 05/08/22 20:12 Dose: 3 mg Pantoprazole Sodium (Pantoprazole 40 Mg Tab) 40 mg PO DAILY [place] Stop: 06/03/22 08:59 Last Admin: 05/10/22 08:03 Dose: 40 mg Tamsulosin HCl (Tamsulosin Hcl 0.4 Mg Cap) 0.4 mg PO HS L[place]IS Stop: 06/02/22 21:58 Last Admin: 05/09/22 19:01 Dose: Not Given Tramadol HCl (Tramadol Hcl 50 Mg Tablet) 25 - 50 mg PO Q4H PRN PRN Reason: Pain Stop: 06/03/22 19:34 Last Admin: 05/06/22 12:26 Dose: 50 mg (1) UTI (urinary tract infection) Hematuria presence: with hematuria Urinary tract infection type: site uns pecified Qualified Code(s): N39.0 - Urinary tract infection, site not specified; R31.9 - Hematuria, unspecified
--- NOTE | 2022-05-10 16:46 | Discharge Summary ---
Date of Service May 10, 2022 Admission HPI Per Admitting Provider This is an 86 y/o male with a PMH of BPH, emphysema, postherpetic neuralgia, and pulmonary nodule in the setting of prior tobacco use who presented to the ED for a fall with prolonged down time. Pt reports that he felt fine last evening, went to bed around 11 pm. Woke up to go to the bathroom and on his way back to bed, he fell. He cannot recall the details of his fall or the immediate preceding events. He thinks that he landed on his chest. He was lying face down on the ground for approximately 12 hours before his son, who comes over daily to check on pt and his , found him. Pt's had a stroke 20 years ago and was unable to call for help. 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 At baseline he uses a cane intermittently to ambulate. He has some ongoing issues with dizziness and gait disturbances for which he follows with neurology. He reports that his last fall was more than two years ago. He denies chest pain, palpitations, SOB, N/V/D, blood in stools or urine. No change in chronic dizziness that he can recall. No recent fevers or chills. Currently, his pain is still significant and present diffusely but worse in his shoulders and hands. He did note some improvement with the Dilaudid. He drinks 1-2 glasses of wine per day. Admission Exam Per Admitting Provider Constitutional:L + thin and + frail appearing; + uncomfor table Eyes: + anicteric sclerae Neck: trachea midline Respiratory: no respiratory distress and no labored breathing Auscultation: lungs clear to auscultation bilaterally; no rales, no rhonchi and no wheezes Cardiovascular: Rate/Rhythm: regular rate and regular rhythm Vessels: radial pulses present Extremities: no pedal edema Gastrointestinal (Abdomen): Inspection/Auscultation: normal bowel sounds; abdomen not distended Percussion/Palpation: abdomen soft; abdomen nontender Musculoskeletal: right > left knee swelling with mild erythema, left hand edematous, bilateral shoulders with anterior ecchymosis and tenderness left periorbital edema and ecchymosis Skin: large skin tear on back of left hand - does not appear to involve tendons multiple areas of ecchymosis noted Neurologic: moves all extremities Speech / Cognition: normal speech Psychiatric: Orientation: alert and oriented x 3 Principal Diagnosis Fall, rhabdomyolysis, superficial skin wound left dorsum and right foot, BPH Discharge Exam Lying in bed comfortably Constitutional + ill appearing and average body habitus Eyes PERRL, conjunctivae normal, anicteric sclerae ENMT external ear and nose normal, oropharynx normal Neck trachea midline, no thyromegaly Respiratory no respiratory distress Auscultation: + diminished lung sounds and + crackles (Minimal crackles at the bases) Cardiovascular Rate/Rhythm: regular rate and regular rhythm; not tachycardic Heart Sounds: normal S1, normal S2 and + murmur Extremities: no edema Gastrointestinal (Abdomen) Inspection/Auscultation: normal bowel sounds; abdomen not distended Percussion/Palpation: abdomen soft; abdomen nontender Neurologic normal touch/pain/proprioception and moves all extremities; no focal motor deficits Lymphatic no cervical or axillary lymphadenopathy Discharge Data Allergies Allergy/AdvReac Type Severity Reaction Status Date / Time hydrochlorothiazide Allergy Severe PANCREATITI Verified 05/03/22 16:25 S morphine Allergy Severe convulsions Verified 05/03/22 16:25 meloxicam Allergy Mild RASH Verified 05/03/22 16:25 gabapentin AdvReac Severe Fainting Verified 05/03/22 16:25 Consultations 05/03/22 16:16 ED Decision to Admit Stat 05/04/22 16:33 Consult Plastic Surgery Routine Ordered Studies 05/03/22 13:35 CT cervical spine wo con Stat CT head/brain wo con Stat Hospital Course (1) Fall: Mechanical fall with multiple areas of trauma Will monitor in PCU. Troponin elevated which may be related to YULISSA/demand ischemia. Check ECHO-normal LV size with moderate concentric LV hypertrophy, LV wall motion is normal with EF of 60 to 65%, grade 1 diastolic dysfunction, aortic valve sclerosis without stenosis, moderate mitral valve annular calcification, trace mitral regurgitation, trace tricuspid regurgitation with mild aortic root dilatation at 4 cm Fall precautions PT/OT evaluations Remains medically stable Getting better gradually Remains stable and awaiting transfer to the SNF Accepted to [facility] and likely transfer tomorrow Remains medically stable will be transferred to [facility] this afternoon (2) Rhabdomyolysis: Given IVF x 2 liter in ED - will give additional 2L at 80 cc/hr. Associated electrolyte abnormalities, YULISSA, and elevated LFTs Total CK level was 4614 on admission and today it went up to 5936 We will continue with intravenous fluid as advised Repeat lab in the morning-CK level is improving and needs little more than 2000 today Continue current intravenous fluid and advised in increase oral intake of fluid Monitor kidney function and CK level-has improved a lot Advised to drink more fluid We will check another CPK level tomorrow-CPK is down to below 900 No more IV fluid and advised to drink more fluid Will check CPK-reduced to 500 range Advised to drink more fluid (3) YULISSA (acute kidney injury): Due to #2 - follow labs, receiving IVF Creatinine has been improving and it is 1.4 to down from 2.23 on admission Will monitor BMP-creatinine remains stable Creatinine has been normalized Remains stable (4) UTI (urinary tract infection): Await urine culture. Continue cefepime as started in the ED Continue current antibiotic No definite UTI we will change IV antibiotic to oral cefdinir for a total of 5- day NO Symptoms of UTI Clinically much improved Antibiotic course is done (5) Skin tear of left hand without complication: - Wound care consult -Appreciate input and recommendation -Appreciate plastic surgery input and recommended -We will continue with the wound care dressing as per advice from the wound care nurse (6) Dehydration: IVF as above (7) BPH (benign prostatic hyperplasia): - Continue home meds (8) DDD (degenerative disc disease): (9) Lung nodule: Will need to be followed up as outpatient (10) Non-traumatic rhabdomyolysis: Plan Pt seen and reviewed with collaborating physician, Dr. Ramsey. Plan of care discussed and as outlined above. Code Status: Full Code DVT Prophylaxis: SCDs for now - re-evaluate in AM Will start subcu Lovenox Will be going to [facility] this afternoon Total Time Total Time Spent Total Time Spent (In Minutes): 45 minutes Discharge Plan Discharge Items Patient Disposition: Transfer Inpatient Rehab Fac Reason For Visit: RHABDOMYOLYSIS, FALL Discharge Diagnosis: Fall, rhabdomyolysis, superficial skin wound left dorsum and right foot, BPH Condition on Discharge: Fair Activity: Resume your previous activity Non-emergency contact: Primary Care Provider Call non-emergency contact if: you have any medication questions and your symptoms worsen Follow-up/Referrals: Ollie Wagner PA-C [Primary Care Provider] - (Please make an appointment with your PCP within 1 week following discharge from the facility) Diet: Regular Addtl Attending Provider Instructions: Please take precautions to avoid fall Continue dressing the wounds as per recommendation from the wound care Try to drink more fluid to avoid dehydration Take your medications as advised Pending Studies at Discharge: No Stand-Alone Forms: My [facility] Skilled Items Patient informed of condition?: Yes DNR: No Discharge Level of Care: Acute rehab Communicable Disease: No Discharge Prognosis: Stable Lines: None Urinary Catheter: No Medications and DC Order Prescriptions: Continued pantoprazole [Protonix] 40 mg tablet,delayed release (DR/EC) 40 mg PO DAILY Qty: 30 2RF tamsulosin [Flomax] 0.4 mg Capsule 0.4 mg PO HS dutasteride [Avodart] 0.5 mg Capsule 0.5 mg PO HS cholecalciferol (vitamin D3) [Vitamin D3] 50 mcg (2,000 unit) Capsule 50 mcg PO HS tramadol 50 mg tablet 50 mg PO Q8 PRN (Reason: Pain, Moderate) Rx Instructions: disc degeneration lumbar region Discharge Orders: Discharge Order (Routine); Ordered 05/10/22 Ordered By: Noam Alexander Admission Data Admit Date/Time: 05/03/22 17:46 Attending Provider: Noam Alexander Admit Provider: Fariba Ramsey Primary Care Provider: Ollie Wagner Other Providers: [facility] ; Fariba Ramsey ; Afua Martino Other Interventions: Discharge Summary Assessment (RN) Last Done: 05/10/22 15:31
== END 2022-05-10 16:09 | DRG 558 ==
LOC: ED 13:12 → SUATTDRO 17:46 → 4W 17:46 → 3N 05-08 17:18

== ENCOUNTER 2023-05-13 09:04 | Observation (INO) ==
[2023-05-13] MEDS ORDERED: BACITRACIN OINT 14 GM TUBE EXT ONE (09:26)
[2023-05-13] MEDS ORDERED: LIDOCAINE/EPINEPH/TETRACAINE 1 EA SYR EXT STA (09:26)
[2023-05-13] MEDS ORDERED: ACETAMINOPHEN 1,000 MG/100 ML VIAL IV STA (09:28)
--- NOTE | 2023-05-13 10:00 | XRay Report ---
RIGHT KNEE 3 VIEWS HISTORY: Right knee pain. fall COMPARISON: None. FINDINGS: There is no fracture or dislocation. Soft tissues are unremarkable. No radiopaque foreign b odies. No knee effusion. Vascular calcifications are noted. The bones are osteopenic. Mild tricompart mental osteoarthritis. IMPRESSION: No acute fractures within the right knee. ACT 112: Negative or not required by law. Electronically signed by: Jeff Zhu M.D. 05/13/2023 9:58 AM
--- NOTE | 2023-05-13 10:03 | XRay Report ---
XR chest 1V portable HISTORY: fall COMPARISON: Chest 05/03/2022. FINDINGS: There is a 13 mm right lower lobe linear nodule again noted. Left basilar linear densities favor subsegmental atelectasis or scarring. Otherwise, lungs are clear. The heart is normal in size. This mildly tortuous and calcified thoracic aorta. Old, healed bilateral rib fractures again noted. N o pneumothorax. No pleural effusions. IMPRESSION: 1. No acute process within the chest. 2. A 13 mm right lower lobe pulmonary nodule again noted. This is concerning for a primary bronchogen ic malignancy. ACT 112: Negative or not required by law. Electronically signed by: Jeff Zhu M.D. 05/13/2023 10:01 AM
--- NOTE | 2023-05-13 10:08 | XRay Report ---
XR knee LT 3V CLINICAL HISTORY: fall COMPARISON: Left knee radiographs April 19, 2013. FINDINGS: Alignment of the left knee is anatomic. There is no acute fracture. There is no significan t joint effusion. Superior patellar spurring is noted. Moderate patellofemoral compartment joint spac e narrowing is noted with osteophytosis. There is mild medial compartment joint space narrowing. IMPRESSION: 1. No acute fracture. 2. Moderate degenerative changes within the left knee. ACT 112: Negative or not required by law. Electronically signed by: Keshawn Mckeon M.D. 05/13/2023 10:07 AM
[2023-05-13] MEDS: SODIUM CHLORIDE 0.9% 1,000 ML IV SCH ×2 (10:18→19:37)
[2023-05-13 10:51] LABS: Bilirubin,Total 0.8 mg/dl (0.2-1.0); Calcium 9.6 mg/dl (8.6-10.3); Magnesium 2.1 mg/dl (1.7-2.4)
--- NOTE | 2023-05-13 10:52 | CT Scan Report ---
CT head/brain wo con CLINICAL HISTORY: 87 years-old Male with fall. Acute head trauma status post fall TECHNIQUE: Multiple axial CT images of the head were obtained without contrast. A dose lowering tech nique was utilized adhering to the principles of ALARA. COMPARISON: Head CT 05/03/2022 FINDINGS: No acute intracranial hemorrhage, intracranial mass, hydrocephalus, territorial ischemia or abnormal extra-axial collection. Extensive and confluent white matter hypodensities are again noted suggestive of advanced chronic microvascular ischemic disease. Involutional changes. Unchanged calcifications o f the falx cerebrum with mild leftward deviation seen on image 28 series 2 which is a chronic finding . Cerebral vascular calcifications. The calvarium is intact. Mastoid air cells are generally clear. Mild to moderate degree of periostea l thickening of the right maxillary sinus with small air-fluid level. Small right forehead contusion on image 10 series 3. Prior bilateral lens repair. IMPRESSION: 1. No acute intracranial abnormality or vertebral fracture. 2. Small right forehead contusions. ACT 112: Negative or not required by law. The above report was generated using voice recognition software. It may contain grammatical, syntax o r spelling errors. Electronically signed by: Roldan Gore M.D. 05/13/2023 10:50 AM
[2023-05-13 10:57] LABS: Albumin Globulin Ratio 1.3 (0.9-2); BUN Creatinine Ratio 30.9 (10-20); Creatinine Clr Calc Pharmacy 79.5 ml/min; Est GFR (African American) 100.2 ml/min; Est GFR (Non-African American) 86.5 ml/min
[2023-05-13 11:02] LABS: Troponin I High Sensitivity 3.6 pg/ml (0-20)
--- NOTE | 2023-05-13 11:05 | CT Scan Report ---
MAXILLOFACIAL CT CT DOSE: 1624.04 mGy.cm HISTORY: Facial injury. fall TECHNIQUE: Multiaxial CT images of the maxillofacial region were performed and reformatted in the cor onal plane without the use of contrast. A dose lowering technique was utilized adhering to the princ iplLong. COMPARISON: CT facial bones 06/09/2018. FINDINGS: Right forehead and right periorbital soft tissue swelling. The visualized cervical spine, s kull base, pterygoid plates, zygomatic arches, nasal bones, lamina papyracea, and orbital floors are intact. There is left nasal septal deviation. There is an old, healed fracture within the left mandib ular condyle. No acute fractures within the mandible. There is a fluid level and inspissated secretio ns within the right maxillary sinus consistent with acute or chronic sinusitis. The globes and retrob ulbar fat are intact. IMPRESSION: 1. No acute fractures within the maxillofacial region. 2. Right forehead and right periorbital soft tissue swelling. 3. Acute on chronic right maxillary sinusitis. ACT 112: Negative or not required by law. Electronically signed by: Jeff Zhu M.D. 05/13/2023 11:03 AM
--- NOTE | 2023-05-13 11:05 | CT Scan Report ---
CT cervical spine wo con CLINICAL HISTORY: 87 years-old Male with fall. Acute neck pain status post fall COMPARISON: 05/03/2022 TECHNIQUE: Multiple axial CT images of the cervical spine were obtained without contrast. A dose low ering technique was utilized adhering to the principles of ALARA. FINDINGS: Moderate multilevel degenerative changes are again noted without acute fracture or subluxat ion identified. Chronic anterior subluxation of the left temporal mandibular joint with healed chroni c fracture deformity. The cervical soft tissues appear unremarkable. No pneumothorax. Intralobular s eptal thickening of the lung apices. Mild tracheobronchial secretions. Atherosclerosis of the aorta a nd carotid arteries. IMPRESSION: No acute cervical spine fracture or subluxation. ACT 112: Negative or not required by law. The above report was generated using voice recognition software. It may contain grammatical, syntax o r spelling errors. Electronically signed by: Roldan Gore M.D. 05/13/2023 11:02 AM
[2023-05-13 11:12] LABS: Thyroid Stimulating Hormone 1.903 uIu/ml (0.300-4.500)
[2023-05-13 11:33] LABS: Basophils # (auto) 0.04 K/uL (0.00-0.20); Basophils % (auto) 0.5 %; Eosinophils # (auto) 0.07 K/uL (0.00-0.50); Eosinophils % (auto) 0.9 %; Hematocrit (blood only) 38.7 % (42.0-52.0); Hemoglobin 12.8 g/dl (14.0-18.0); Immature Granulocytes # (auto) 0.04 K/uL (0.01-0.20); Immature Granulocytes % (auto) 0.5 %; Lymphocytes # (auto) 0.79 K/uL (1.20-3.40); Lymphocytes % (auto) 9.8 %; Mean Corpuscular Hemoglobin 30.3 pg (25.0-34.0); Mean Corpuscular Hgb Conc 33.1 g/dL (32.0-36.0); Mean Corpuscular Volume 91.5 fL (80.0-100.0); Mean Platelet Volume 9.9 fL (9.4-12.4); Monocytes % (auto) 7.5 %; Neutrophils # (auto) 6.49 K/uL (1.40-6.50); Neutrophils % (auto) 80.8 %; Platelet Count 207 K/uL (130-400); RDW Coefficient of Variation 15.3 % (11.5-14.5); RDW Standard Deviation 51.2 fL (36.4-46.3); Red Blood Count 4.23 M/uL (4.70-6.10); White Blood Count 8.03 K/ul (4.8-10.8)
--- NOTE | 2023-05-13 12:03 | Emergency Department Note ---
Impression & Plan CHI (closed head injury), Fall, Laceration of scalp, Laceration of face, Contusion of nose, Contusion of knee, left, Contusion of knee, right, Skin tear of right upper extremity, Sinusitis, Weakness, Hypoxia ED Provider Note NAME: MARILUZ ANAYA AGE: 87 SEX: Male INFORMANT: Patient ED PROVIDER(S): Davion Quiñonez MD CHIEF COMPLAINT: Fall PLAN: Disposition: Admitted Outpatient prescription management: none Referral: None MEDICAL DECISION MAKING: Patient presented because of a fall. He was feeling generally weak. Patient felt like it may be related to the tramadol that he took. He was found to be mildly hypoxic and denied using oxygen. Does have a history of emphysema. Patient's chest x-ray revealed chronic changes without acute findings. He had a nonischemic ECG. Patient's CBC and chemistry panel are unremarkable. Urinalysis did raise some concerns for infection. CT imaging of the head, face, cervical spine was performed. He had no intracranial or cervical pathology noted. No skull fracture or facial fractures noted. Patient does have sinusitis and soft tissue swelling. He had a laceration of his scalp as well as his face. This was repaired by Gloria Irene PA-C. Please see her note. Patient was found to have an abnormal urinalysis. Given the sinus and the urine the patient was given IV Rocephin. CT imaging of the chest was performed to further evaluate the patient's low oxygen level. He was found to have emphysematous change as well as bronchitis on CT. Bio fire testing was ordered. The patient was unable to get up to ambulate. He was too weak. Despite Tylenol, gentle hydration and a DuoNeb treatment the patient will need further management in the hospital. [facility] Patient was evaluated in the ER admitted for further management. Care/management discussed with: Discussed with position description manager Level of care consideration(s): After review of the information above and other included data, I feel the patient requires escalation of care to admission Triage Nursing notes: reviewed and agree them. Vital Signs: reviewed and remarkable for mild hypertension Additional History obtained from: none Chronic Medical/Social Conditions affecting care: Hypertension Prior/ Outside/ External records reviewed: none Differential Diagnosis: Fracture, contusion, soft tissue injury, ICH, Infection, dehydration, metabolic abnormality, hypo/hyperglycemia, electrolyte disturbance, anemia, hypoxia, cardiac sources, intracerebral event, toxicologic, neurologic, as well as other pathologies. Diagnostics, independently interpreted by me: ECG: Twelve-lead ECG was normal sinus rhythm 60 bpm. Left axis deviation. Right bundle branch block. Cardiac Monitoring: Cardiac monitoring ordered by me: The patient was placed on continuous cardiac monitoring and observed. It revealed a normal sinus rhythm at 82 beats per minute without ectopy or evidence of dysrhythmia. Medical decision rules: none Imaging studies: CT scan of the head, facial bones and cervical spine reveal no evidence of intracranial injury or fracture. Patient sinusitis. CT scan of the chest and chest x-ray revealed no evidence of pulmonary embolism or pneumonia. Bronchitis and emphysematous changes seen on CT. I refer you to the EMR for further details. HPI: 87 year old Male arrives for evaluation of a fall. Patient resides at a nursing facility and fell this morning. He states that he tripped accidentally. He felt generally weak and lost his balance. Patient hit the top of his head as well as his face. He suffered a laceration to the top of his scalp and near the right eye. He had a small skin tear on the right arm and also noted pain in both knees. On arrival patient still noted feeling generally weak. Denied any focal weakness. He was noted to have an O2 saturation of 86% on room air. Patient states that he does not normally wear oxygen. Pt denies LOC, fevers, chills, diaphoresis, visual changes, neck pain, chest pain, breathing difficulties, nausea, vomiting, abdominal pain, back pain, melena, hematochezia, urinary symptoms, numbness, rash, or other complaints. PAST MEDICAL HISTORY: See Below, reflux, emphysema, GI bleed PAST SURGICAL HISTORY: See Below, SOCIAL HISTORY: See Below, retired HOME MEDICATIONS: See Below ALLERGIES: See Below VITALS: See Below PHYSICAL EXAMINATION: GENERAL: Awake, tired, [id number], in no distress HENT: Normocephalic, scalp laceration noted on the crown without active bleeding. There is a laceration lateral to the right eye as well. Oropharynx unremarkable. Nasal contusion noted. Forehead contusion noted. EYES: Normal conjunctiva. Sclera non-icteric. PERRLA. EOMI. NECK: Inspection normal. Non-tender. Supple. No nuchal rigidity. FROM. No masses. RESPIRATORY: Clear to auscultation. No wheezes. No rales. Normal respiratory effort. CARDIAC: Normal rate. Normal rhythm. No murmurs. No rubs. Extremities warm and well perfused. Pulses equal. No JVD. GI: Soft, non-distended. No tenderness to palpation. No rebound or guarding. No masses. RECTAL: Deferred. MUSCULOSKELETAL: Upper extremities are atraumatic except for small skin tear on the right upper arm. Bandage in place. There is bilateral knee abrasions. Range of motion is relatively well-preserved without deformity or significant bony tenderness. Remainder of the lower extremities are atraumatic. Chest examination reveals no tenderness. The back is symmetrical on inspection without obvious abnormality. There is no CVA tenderness to palpation. No joint edema. No midline spine tenderness palpation. LOWER EXTREMITIES: Calves are equal size bilaterally and non-tender. 1+ lower extremity edema. No discoloration. NEURO: Normal sensorium. Generally weak but no focal sensory or motor deficits noted. SKIN: No rash or jaundice noted. PROCEDURES: none CRITICAL CARE: none OBSERVATION NOTE: none Past Med/Surg History Medical History Aortic valve sclerosis Bladder stones History of colon polyps History of COVID-19 09/11/21 @ [facility] (asymptomatic, tested prior to procedure)--no issues Hearing deficit Centrilobular emphysema Left hip pain Anemia Lung nodule Acute pancreatitis Osteoarthritis Spinal stenosis B/L LE radiculopathy History of hypertension controlled since weight loss Mandibular fracture DDD (degenerative disc disease) BPH (benign prostatic hyperplasia) Surgical History History of ERCP (~11/30/20) History of esophagogastroduodenoscopy (EGD) last 09/29/21 @ [place] History of colonoscopy Previous back surgery History of tonsillectomy and adenoidectomy Hx of toe surgery HAD TOENAIL REMOVED IN OFFICE 12/2018 Hx of tonsillectomy Hx of hernia repair RIGHT INGUINAL History of carpal tunnel surgery RIGHT HAND History of appendectomy Family History Mother Liver cancer Social History (Updated 05/13/23 @ 16:34 by Diane Vega PA-C) Smoking Status: Former smoker Tobacco Type: Cigarettes Second Hand Exposure: No; Do You Dip or Chew Tobacco: No; Hx Alcohol Use: No Hx Substance Use: No Preferred Language: [place] Communication Ability: Effective Communication Ability Comment: pt is [place] [place] [employer] Visual Impairment: No Limitations Senior Associate Required: No Beliefs That Will Affect Care: None marital status: Feels Safe at Home: Yes Assistive Devices: Cane Allergies Allergies Allergy/AdvReac Type Severity Reaction Status Date / Time hydrochlorothiazide Allergy Severe PANCREATITI Verified 05/13/23 12:08 S morphine Allergy Severe convulsions Verified 05/13/23 12:08 meloxicam Allergy Mild RASH Verified 05/13/23 12:08 gabapentin AdvReac Severe Fainting Verified 05/13/23 12:08 Home Meds Home Medications Medication Instructions Recorded Confirmed tamsulosin 0.4 mg capsule (Flomax) 0.4 mg PO HS 11/11/18 05/13/23 cholecalciferol (vitamin D3) 50 50 mcg PO QAM 04/24/21 05/13/23 mcg (2,000 unit) capsule (Vitamin D3) tramadol 50 mg tablet 50 mg PO Q4H PRN Pain 05/03/22 05/13/23 acetaminophen 325 mg tablet 650 mg PO QID PRN Fever 05/13/23 05/13/23 (Tylenol) acetaminophen 500 mg tablet 1,000 mg PO TID 05/13/23 05/13/23 ammonium lactate 12 % lotion 1 applic topical BID Irritation to 05/13/23 05/13/23 back, legs and arms benzonatate 100 mg capsule 100 mg PO TID PRN Cough 05/13/23 05/13/23 guaifenesin 600 mg tablet, 600 mg PO BID PRN Congestion 05/13/23 05/13/23 extended release 12 hr (Mucinex) hydrocortisone 1 % topical cream 1 applic topical BID 05/13/23 05/13/23 lidocaine 4 % topical patch 1 patch topical DAILY Pain in left 05/13/23 05/13/23 hip pantoprazole 40 mg tablet,delayed 40 mg PO QAM gastric erosions 05/13/23 05/13/23 release (Protonix) polyethylene glycol 3350 17 gram 17 g PO QAM PRN Constipation 05/13/23 05/13/23 oral powder packet (Miralax) Results & Data (ED) Vital Signs Vital Signs - 24 hr 05/13/23 08:56 05/13/23 09:12 05/13/23 09:19 Temperature 36.5 C Temperature Source Oral Pulse Rate 66 70 66 Pulse Rate [Right Finger] Pulse Rhythm Regular Regular Pulse Rhythm [Right Finger] Pulse Strength Normal Pulse Strength [Right Finger] Respiratory Rate 20 20 Respiratory Effort / Characteristics Non-Labored Spontaneous Respiratory Depth Normal Respiratory Pattern Regular Blood Pressure 133/70 Blood Pressure [Left Arm] Blood Pressure Mean 91 Blood Pressure Mean [Left Arm] Blood Pressure Position Sitting Blood Pressure Position [Left Arm] Pulse Oximetry 86 L 93 Oxygen Delivery Method Room Air Nasal Cannula Oxygen Flow Rate 2 Sepsis Recent Fever Within 48 Hours No Sepsis New/Unexplained Change in Mental Status No Sepsis Action Taken by Nursing No Action Required 05/13/23 09:45 05/13/23 11:00 05/13/23 13:00 Temperature Temperature Source Pulse Rate Pulse Rate [Right Finger] 78 78 72 Pulse Rhythm Pulse Rhythm [Right Finger] Regular Regular Regular Pulse Strength Pulse Strength [Right Finger] Normal Normal Normal Respiratory Rate 20 20 20 Respiratory Effort / Characteristics Non-Labored Spontaneous Non-Labored Spontaneous Respiratory Depth Normal Normal Respiratory Pattern Regular Regular Blood Pressure Blood Pressure [Left Arm] 149/69 H 141/66 H Blood Pressure Mean Blood Pressure Mean [Left Arm] 95 91 Blood Pressure Position Blood Pressure Position [Left Arm] Sitting Sitting Pulse Oximetry 92 93 Oxygen Delivery Method Nasal Cannula Nasal Cannula Oxygen Flow Rate 2 2 Sepsis Recent Fever Within 48 Hours Sepsis New/Unexplained Change in Mental Status Sepsis Action Taken by Nursing 05/13/23 15:00 05/13/23 16:56 Temperature Temperature Source Pulse Rate Pulse Rate [Right Finger] 78 82 Pulse Rhythm Pulse Rhythm [Right Finger] Regular Regular Pulse Strength Pulse Strength [Right Finger] Normal Normal Respiratory Rate 22 20 Respiratory Effort / Characteristics Non-Labored Spontaneous Non-Labored Spontaneous Respiratory Depth Normal Normal Respiratory Pattern Regular Regular Blood Pressure Blood Pressure [Left Arm] Blood Pressure Mean Blood Pressure Mean [Left Arm] Blood Pressure Position Blood Pressure Position [Left Arm] Pulse Oximetry 92 91 Oxygen Delivery Method Room Air Nasal Cannula Oxygen Flow Rate 2 Sepsis Recent Fever Within 48 Hours Sepsis New/Unexplained Change in Mental Status Sepsis Action Taken by Nursing Laboratory Data 05/13/23 11:13 05/13/23 09:19 Lab Results 05/13/23 05/13/23 05/13/23 Range/Units 09:19 11:13 Unknown WBC 8.03 (4.8-10.8) K/ul RBC 4.23 L (4.70-6.10) M/uL Hgb 12.8 L (14.0-18.0) g/dl Hct 38.7 L (42.0-52.0) % MCV 91.5 (80.0-100.0) fL MCH 30.3 (25.0-34.0) pg MCHC 33.1 (32.0-36.0) g/dL RDW Std Deviation 51.2 H (36.4-46.3) fL RDW Coeff of Jocelyn 15.3 H (11.5-14.5) % Plt Count 207 (130-400) K/uL MPV 9.9 (9.4-12.4) fL Immature Gran % (Auto) 0.5 % Neut % (Auto) 80.8 % Lymph % (Auto) 9.8 % [place] % (Auto) 7.5 % Eos % (Auto) 0.9 % Baso % (Auto) 0.5 % Neut # (Auto) 6.49 (1.40-6.50) K/uL Lymph # (Auto) 0.79 L (1.20-3.40) K/uL [place] # (Auto) 0.60 H (0.11-0.59) K/uL Eos # (Auto) 0.07 (0.00-0.50) K/uL Baso # (Auto) 0.04 (0.00-0.20) K/uL Immature Gran # (Auto) 0.04 (0.01-0.20) K/uL Sodium 140 (136-145) mmol/L Potassium 4.0 (3.5-5.1) mmol/L Chloride 108 H (98-107) mmol/L Carbon Dioxide 27 (21-32) mmol/L Anion Gap 5 (3-11) BUN 21 (6-23) mg/dl Creatinine 0.68 (0.6-1.4) mg/dl Est Cr Clr Drug Dosing 79.5 ml/min Est GFR ( Amer) 100.2 ml/min Est GFR (Non-Af Amer) 86.5 ml/min BUN/Creatinine Ratio 30.9 H (10-20) Glucose 100 H (70-99(Fasting)) mg/dl Calcium 9.6 (8.6-10.3) mg/dl Magnesium 2.1 (1.7-2.4) mg/dl Total Bilirubin 0.8 (0.2-1.0) mg/dl AST 15 (13-39) U/L ALT 9 (7-52) U/L Alkaline Phosphatase 118 H (34-104) U/L Troponin I High Sens 3.6 (0-20) pg/ml B-Natriuretic Peptide 42 (0-100) pg/ml Total Protein 7.0 (6.0-8.3) gm/dl Albumin 4.0 (3.4-5.0) gm/dl Globulin 3.0 (2.5-4.0) gm/dl Albumin/Globulin Ratio 1.3 (0.9-2) TSH 1.903 (0.300-4.500) uIu/ml Urine Color Yellow Urine Appearance Clear (Clear) Urine pH 5.0 (4.5-7.5) Ur Specific [place] 1.024 (1.000-1.030) Urine Protein Negative (Negative) Urine Glucose (UA) Negative (Negative) Urine Ketones Negative (Negative) Urine Blood Negative (Negative) Urine Nitrite Negative (Negative) Urine Bilirubin Negative (Negative) Urine Urobilinogen Negative (Negative) Ur Leukocyte Esterase 2+ H (Negative) Urine WBC (Auto) >30 H (0-5) /hpf Urine RBC (Auto) 0-4 (0-4) /hpf U Hyaline Cast (Auto) 1-5 (0-5) /lpf U Epithel Cells (Auto) 20-30 H (0-5) /lpf Urine Bacteria (Auto) Negative (Negative) Urine Yeast Budding w/ Hyphae A (None Prsent) Administered Medications Sodium Chloride (Nss) 1,000 mls @ 125 mls/hr IV .Q8H LOUIS Stop: 06/12/23 09:29 Last Admin: 05/13/23 10:18 Dose: 125 mls/hr Documented By: SWD Discontinued Medications Albuterol (Albut/Ipratrop 3mg/0.5mg Neb 3 Ml Vial) 3 ml NEB NOW STA; Protocol Stop: 05/13/23 15:23 Last Admin: 11/03/23 15:30 Dose: 3 ml Documented By: JAVI Bacitracin (Bacitracin Oint 14 Gm Tube) 1 appln EXT NOW ONE Stop: 05/13/23 09:27 Last Admin: 05/13/23 10:28 Dose: 3 appln Documented By: JAVI Acetaminophen (Ofirmev) 1,000 mg in 100 mls @ 400 mls/hr IV NOW STA Stop: 05/13/23 09:42 Last Infusion: 05/13/23 10:49 Dose: Infused Documented By: Admin: 05/13/23 10:29 Dose: 400 mls/hr Documented By: JAVI Ceftriaxone Sodium (Rocephin) 2,000 mg in 50 mls @ 100 mls/hr IV NOW STA Stop: 05/13/23 14:42 Last Admin: 05/13/23 15:30 Dose: 100 mls/hr Documented By: JAVI Ioversol (Optiray 320 500ml) 92 ml IV ONCE ONE Stop: 05/13/23 14:59 Last Admin: 05/13/23 14:59 Dose: 92 ml Documented By: JENNIFER Lidocaine (Lidocaine/Epineph/Tetracaine 1 Ea Syr) 1 each EXT NOW STA Stop: 05/13/23 09:27 Last Admin: 05/13/23 10:28 Dose: 1 each Documented By: JAVI Imaging Data Radiologist's Impression: Cervical Spine CT 05/13/23 09:19 CT cervical spine wo con CLINICAL HISTORY: 87 years-old Male with fall. Acute neck pain status post fall COMPARISON: 05/03/2022 TECHNIQUE: Multiple axial CT images of the cervical spine were obtained without contrast. A dose lowering technique was utilized adhering to the principles of ALARA. FINDINGS: Moderate multilevel degenerative changes are again noted without acute fracture or subluxation identified. Chronic anterior subluxation of the left temporal mandibular joint with healed chronic fracture deformity. The cervical soft tissues appear unremarkable. No pneumothorax. Intralobular septal thickening of the lung apices. Mild tracheobronchial secretions. Atherosclerosis of the aorta and carotid arteries. IMPRESSION: No acute cervical spine fracture or subluxation. ACT 112: Negative or not required by law. The above report was generated using voice recognition software. It may contain grammatical, syntax or spelling errors. Electronically signed by: Roldan Gore M.D. 05/13/2023 11:02 AM Chest X-Ray 05/13/23 09:19 XR chest 1V portable HISTORY: fall COMPARISON: Chest 05/03/2022. FINDINGS: There is a 13 mm right lower lobe linear nodule again noted. Left basilar linear densities favor subsegmental atelectasis or scarring. Otherwise, lungs are clear. The heart is normal in size. This mildly tortuous and calcified thoracic aorta. Old, healed bilateral rib fractures again noted. No pneumothorax. No pleural effusions. IMPRESSION: 1. No acute process within the chest. 2. A 13 mm right lower lobe pulmonary nodule again noted. This is concerning for a primary bronchogenic malignancy. ACT 112: Negative or not required by law. Electronically signed by: Jeff Zhu M.D. 05/13/2023 10:[address] 05/13/23 09:[address] DOSE: 1624.04 mGy.cm HISTORY: Facial injury. fall TECHNIQUE: Multiaxial CT images of the maxillofacial region were performed and reformatted in the coronal plane without the use of contrast. A dose lowering technique was utilized adhering to the principles of ALARA. COMPARISON: CT facial bones 06/09/2018. FINDINGS: Right forehead and right periorbital soft tissue swelling. The visualized cervical spine, skull base, pterygoid plates, zygomatic arches, nasal bones, lamina papyracea, and orbital floors are intact. There is left nasal septal deviation. There is an old, healed fracture within the left mandibular condyle. No acute fractures within the mandible. There is a fluid level and inspissated secretions within the right maxillary sinus consistent with acute or chronic sinusitis. The globes and retrobulbar fat are intact. IMPRESSION: 1. No acute fractures within the maxillofacial region. 2. Right forehead and right periorbital soft tissue swelling. 3. Acute on chronic right maxillary sinusitis. ACT 112: Negative or not required by law. Electronically signed by: Jeff Zhu M.D. 05/13/2023 11:[address] 05/13/23 09:19 CT head/brain wo con CLINICAL HISTORY: 87 years-old Male with fall. Acute head trauma status post fall TECHNIQUE: Multiple axial CT images of the head were obtained without contrast. A dose lowering technique was utilized adhering to the principles of ALARA. COMPARISON: Head CT 05/03/2022 FINDINGS: No acute intracranial hemorrhage, intracranial mass, hydrocephalus, territorial ischemia or abnormal extra-axial collection. Extensive and confluent white matter hypodensities are again noted suggestive of advanced chronic microvascular ischemic disease. Involutional changes. Unchanged calcifications of the falx cerebrum with mild leftward deviation seen on image 28 series 2 which is a chronic finding. Cerebral vascular calcifications. The calvarium is intact. Mastoid air cells are generally clear. Mild to moderate degree of periosteal thickening of the right maxillary sinus with small air-fluid level. Small right forehead contusion on image 10 series 3. Prior bilateral lens repair. IMPRESSION: 1. No acute intracranial abnormality or vertebral fracture. 2. Small right forehead contusions. ACT 112: Negative or not required by law. The above report was generated using voice recognition software. It may contain grammatical, syntax or spelling errors. Electronically signed by: Roldan Gore M.D. 05/13/2023 10:50 AM Knee X-Ray 05/13/23 09:19 XR knee LT 3V CLINICAL HISTORY: fall COMPARISON: Left knee radiographs April 19, 2013. FINDINGS: Alignment of the left knee is anatomic. There is no acute fracture. There is no significant joint effusion. Superior patellar spurring is noted. Moderate patellofemoral compartment joint space narrowing is noted with osteophytosis. There is mild medial compartment joint space narrowing. IMPRESSION: 1. No acute fracture. 2. Moderate degenerative changes within the left knee. ACT 112: Negative or not required by law. Electronically signed by: Keshawn Mckeon M.D. 05/13/2023 10:07 AM Knee X-Ray 05/13/23 09:19 RIGHT KNEE 3 VIEWS HISTORY: Right knee pain. fall COMPARISON: None. FINDINGS: There is no fracture or dislocation. Soft tissues are unremarkable. No radiopaque foreign bodies. No knee effusion. Vascular calcifications are noted. The bones are osteopenic. Mild tricompartmental osteoarthritis. IMPRESSION: No acute fractures within the right knee. ACT 112: Negative or not required by law. Electronically signed by: Jeff Zhu M.D. 05/13/2023 9:58 AM Chest CTA 05/13/23 11:38 CT angio chest PE protocol CT DOSE: 616.49 mGy.cm HISTORY: 87 years-old Male with weakness, hypoxia. Acute weakness with hypoxia TECHNIQUE: Multiple CTA images of the chest were obtained after the intravenous administration of 92 ml Optiray. Coronal and sagittal MIPS were obtained from the axial data set and were submitted for review. All measurements were obtained according to NASCET criteria. A dose lowering technique was utilized adhering to the principles of ALARA. COMPARISON: CT abdomen and pelvis 06/04/2021, 11/28/2020, 08/11/2019, 11/11/2018. FINDINGS: CTA: Mild cardiomegaly. No pericardial effusion. Moderate to extensive coronary artery calcifications. Atherosclerosis of the thoracic aorta without aneurysm or dissection. Unremarkable pulmonary artery. CT CHEST: No thyroid nodule or lymphadenopathy. There is no pneumothorax or pleural effusion. Mild to moderate pulmonary emphysema with bronchial wall thickening and mild dependent subsegmental bibasilar atelectasis versus scarring. Irregular solid nodules in the basal right lower lobe on image 84 measures 1.3 x 1.3 cm containing a central subcentimeter calcification and peripheral bronchus. This measured 8 x 7 mm on the 2019 study and 11 mm on the 06/04/2021 exam. No additional pulmonary nodules identified. Central airways are patent. Cholecystectomy with pneumobilia. Colonic diverticulosis. Tiny hiatal hernia. Unremarkable soft tissues. No acute fracture. Healed chronic bilateral rib fractures. IMPRESSION: 1. No pulmonary emboli identified. 2. Emphysema with bronchitis. 3. Irregular slowly growing suspicious solid nodule within the right lower lobe measures 1.3 x 1.3 cm. This nodule originally measured 8 mm on the 2019 study. Please refer to below summary of Fleischner criteria recommendations for follow- up of incidental CT nodules (Db Amezcua, Guidelines for management of small pulmonary nodules detected on CT scans: A statement from the Fleischner Society, Radiology 237: [phone].) SOLID NODULES Solitary nodule size: >8 mm * either low or high risk patients - consider follow-up CT at 3 months, and/or CT-PET, and/or biopsy Note: newly detected indeterminate nodule in persons 35 years of age or older. * Low risk patients: minimal or absent history of smoking and/or other known risk factors * high risk patients: history of smoking or of other known risk factors (e.g. first degree relative with lung cancer, or exposure to asbestos, radon, uranium) * if a nodule up to 8 mm is partly solid or is ground glass further follow-up is required after 24 months to exclude possible slow growing adenocarcinoma (MANDA) ACT 112: Negative or not required by law. The above report was generated using voice recognition software. It may contain grammatical, syntax or spelling errors. Electronically signed by: Roldan Gore M.D. 05/13/2023 3:20 PM Discharge Plan Visit Data Chief Complaint: Fall ED Provider: Davion Quiñonez Discharge Problem: CHI (closed head injury), Fall, Laceration of scalp, Laceration of face, Contusion of nose, Contusion of knee, left, Contusion of knee, right, Skin tear of right upper extremity, Sinusitis, Weakness, Hypoxia Forms Stand Alone Forms: [facility] [employer] Prescriptions Prescriptions: No Action tamsulosin [Flomax] 0.4 mg Capsule 0.4 mg PO HS cholecalciferol (vitamin D3) [Vitamin D3] 50 mcg (2,000 unit) Capsule 50 mcg PO QAM tramadol 50 mg tablet 50 mg PO Q4H PRN (Reason: Pain) Rx Instructions: disc degeneration lumbar region acetaminophen [Tylenol] 325 mg Tablet 650 mg PO QID PRN (Reason: Fever) lidocaine 4 % Adhesive Patch,Medicated 1 patch TOPICAL DAILY Rx Instructions: Start Date 05/09/23 - End Date 05/20/23 ammonium lactate 12 % Lotion 1 applic TOPICAL BID polyethylene glycol 3350 [Miralax] 17 gram powder in packet 17 g PO QAM PRN (Reason: Constipation) acetaminophen [Tylenol Ex Str Rapid Release] 500 mg Tablet 1,000 mg PO TID benzonatate 100 mg capsule 100 mg PO TID PRN (Reason: Cough) hydrocortisone 1 % Cream 1 applic TOPICAL BID guaifenesin [Mucinex] 600 mg tablet extended release 12hr 600 mg PO BID PRN (Reason: Congestion) pantoprazole [Protonix] 40 mg tablet,delayed release (DR/EC) 40 mg PO QAM Referrals Referrals: Ollie Wagner PA-C [Primary Care Provider] -
--- NOTE | 2023-05-13 13:23 | Emergency Department Note ---
ED Visit Note EMERGENCY DEPARTMENT PROCEDURE NOTE: I was asked by Dr. Quiñonez to repair the scalp and right cheek wounds of this is 87-year-old male patient. Please refer to their dictation for the complete history, physical exam, and ED course. Let gel had been applied to the wounds prior to my assessment of the patient, but had not set well. EMERGENCY DEPARTMENT COURSE: Attention was first turned to the wound on the right cheek, just inferior and lateral to the corner of the right eye. It was a T shaped 2 cm laceration. The wound was cleansed thoroughly with normal saline solution and irrigated well. The wound was anesthetized with 1% plain buffered lidocaine. The laceration was then reapproximated using a total of 5, 6-0 nylon sutures. The scalp laceration was cleansed thoroughly with normal saline solution and prepped with Betadine. Again, wound anesthetized with 1% plain buffered lidocaine. Wound was irrigated copiously with normal saline solution. No evidence for foreign body. Laceration was reapproximated using 5 skin marissa. Patient tolerated the procedure well.
[2023-05-13 13:32] LABS: Appearance Urine Clear (Clear); Bacteria Urine Automated Negative (Negative); Bilirubin Urine Negative (Negative); Blood Urine Negative (Negative); Color Urine Yellow; Epithelial Cell Urine Auto 20-30 /lpf (0-5); Glucose Urine UA Negative (Negative); Ketones Urine Negative (Negative); Leukocyte Esterase Urine 2+ (Negative); Nitrite Urine Negative (Negative); Protein Urine Negative (Negative); RBC Urine Automated 0-4 /hpf (0-4); Specific Gravity Urine 1.024 (1.000-1.030); Urobilinogen Urine Negative (Negative); WBC Urine Automated >30 /hpf (0-5)
[2023-05-13] MEDS ORDERED: cefTRIAXone SODIUM 2,000 MG/50 ML BAG IV STA (14:13)
[2023-05-13] MEDS ORDERED: OPTIRAY 320 500ml IV ONE (14:58)
--- NOTE | 2023-05-13 15:21 | CT Scan Report ---
CT angio chest PE protocol CT DOSE: 616.49 mGy.cm HISTORY: 87 years-old Male with weakness, hypoxia. Acute weakness with hypoxia TECHNIQUE: Multiple CTA images of the chest were obtained after the intravenous administration of 92 ml Optiray. Coronal and sagittal MIPS were obtained from the axial data set and were submitted for [employer]. All measurements were obtained according to NASCET criteria. A dose lowering technique was ut ilized adhering to the principles of ALARA. COMPARISON: CT abdomen and pelvis 06/04/2021, 11/28/2020, 08/11/2019, 11/11/2018. FINDINGS: CTA: Mild cardiomegaly. No pericardial effusion. Moderate to extensive coronary artery calcifications. Ath erosclerosis of the thoracic aorta without aneurysm or dissection. Unremarkable pulmonary artery. CT CHEST: No thyroid nodule or lymphadenopathy. There is no pneumothorax or pleural effusion. Mild to moderate pulmonary emphysema with bronchial wall thickening and mild dependent subsegmental bibasilar atelecta sis versus scarring. Irregular solid nodules in the basal right lower lobe on image 84 measures 1.3 x 1.3 cm containing a central subcentimeter calcification and peripheral bronchus. This measured 8 x 7 mm on the 2019 study and 11 mm on the 06/04/2021 exam. No additional pulmonary nodules identified. C entral airways are patent. Cholecystectomy with pneumobilia. Colonic diverticulosis. Tiny hiatal hernia. Unremarkable soft tissu es. No acute fracture. Healed chronic bilateral rib fractures. IMPRESSION: 1. No pulmonary emboli identified. 2. Emphysema with bronchitis. 3. Irregular slowly growing suspicious solid nodule within the right lower lobe measures 1.3 x 1.3 cm . This nodule originally measured 8 mm on the 2019 study. Please refer to below summary of Fleischner criteria recommendations for follow-up of incidental CT n odules (Db Amezcua, Guidelines for management of small pulmonary nodules detected on CT scans: A sta tement from the Fleischner Society, Radiology 237: [id number].) SOLID NODULES Solitary nodule size: >8 mm * either low or high risk patients - consider follow-up CT at 3 months, and/or CT-PET, and/or biopsy Note: newly detected indeterminate nodule in persons 35 years of age or older. * Low risk patients: minimal or absent history of smoking and/or other known risk factors * high risk patients: history of smoking or of other known risk factors (e.g. first degree relative with lung cancer, or exposure to asbestos, radon, uranium) * if a nodule up to 8 mm is partly solid or is ground glass further follow-up is required after 24 m onths to exclude possible slow growing adenocarcinoma (MANDA) ACT 112: Negative or not required by law. The above report was generated using voice recognition software. It may contain grammatical, syntax o r spelling errors. Electronically signed by: Roldan Gore M.D. 05/13/2023 3:20 PM
[2023-05-13] MEDS ORDERED: ALBUT/IPRATROP 3MG/0.5MG NEB 3 ML VIAL NEB STA (15:22)
--- NOTE | 2023-05-13 16:09 | History & Physical Report ---
Date of Service May 13, 2023 Assessment & Plan (1) Fall: (2) Weakness: (3) Laceration of scalp: (4) Laceration of face: (5) Skin tear of right upper extremity: (6) Contusion of knee, right: (7) Contusion of knee, left: Plan: Patient is 87-year-old male with PMH HTN, BPH, DDD, AAS, postherpetic neuralgia, pulmonary nodules presented to ER from [facility] for reported trip and fall. In ER vitals stable CT Head: No acute intracranial abnormality or vertebral fracture. Small right forehead contusions. Face CT: No acute fractures within the maxillofacial region. Right forehead and right periorbital soft tissue swelling. CT cervical spine: No acute cervical spine fracture or subluxation. Right knee x-ray: No acute fractures within the right knee Left knee x-ray:No acute fracture. Moderate degenerative changes within the left knee. In ER lacerations repaired Fall precautions PT/OT eval CBC, BMP in a.m. (8) Hypoxia: (9) Bronchitis: (10) Centrilobular emphysema: Plan: In ER patient noted to be hypoxic at 86% on room air currently saturating well on 2 L via nasal cannula CTA chest: No pulmonary emboli identified. Emphysema with bronchitis. Irregular slowly growing suspicious solid nodule within the right lower lobe measures 1.3 x 1.3 cm. This nodule originally measured 8 mm on the 2019 study. Supplemental oxygen Nebs Start Augmentin (11) Sinusitis: Plan: Face CT:. No acute fractures within the maxillofacial region. 2. Right forehead and right periorbital soft tissue swelling. 3. Acute on chronic right maxillary sinusitis. Start Augmentin (12) Abnormal urinalysis: Plan: UA: 2+ leuk esterase,> 30 WBC, 20-30 epithelial,+ budding with hyphae Urine culture pending Start Augmentin for possible UTI (13) Lung nodule: Plan: CTA chest: Irregular slowly growing suspicious solid nodule within the right lower lobe measures 1.3 x 1.3 cm. This nodule originally measured 8 mm on the 2019 study. Patient with known lung nodule. Per outpatient notes has chose no further monitoring as would not want treatment secondary to his age (14) BPH (benign prostatic hyperplasia): Plan: Continue tamsulosin (15) DDD (degenerative disc disease): Plan: On tramadol. We will hold tramadol currently as patient feels this caused his fall Tylenol DVT Prophylaxis Heparin SQ Full Code as per discussion with pt Follows with Ollie Wagner PA-C for routine care Pt was seen and care coordinated with Dr Perry. See addendum History of Present Illness Chief Complaint: Fall Primary Care Provider: Ollie Wagner PA-C Patient is 87-year-old male with PMH HTN, BPH, DDD, AAS, postherpetic neuralgia, pulmonary nodules presented to ER with complaint of fall. Patient lives at [facility]. History obtained from patient, chart review, ER staff. Limited history obtained from patient secondary to mental status. ER staff report that EMS reported patient tripped and fell and hit head. At time patient denied any dizziness. No LOC was reported. I attempted to call [facility], however was unable to get response. Attempted contact emergency contacts also without response. Patient thinks the Tramadol caused him to fall. Currently he reports he is thirsty and hungry and denies any pain. He states he always has "sinus" congestion. Denies CRUZ, CP, SOB. Allergies Allergy/AdvReac Type Severity Reaction Status Date / Time hydrochlorothiazide Allergy Severe PANCREATITI Verified 05/13/23 12:08 S morphine Allergy Severe convulsions Verified 05/13/23 12:08 meloxicam Allergy Mild RASH Verified 05/13/23 12:08 gabapentin AdvReac Severe Fainting Verified 05/13/23 12:08 Home Medications Medication Instructions Recorded Confirmed Type tamsulosin 0.4 mg capsule (Flomax) 0.4 mg PO HS 11/11/18 05/13/23 History cholecalciferol (vitamin D3) 50 50 mcg PO QAM 04/24/21 05/13/23 History mcg (2,000 unit) capsule (Vitamin D3) tramadol 50 mg tablet 50 mg PO Q4H PRN Pain 05/03/22 05/13/23 History acetaminophen 325 mg tablet 650 mg PO QID PRN Fever 05/13/23 05/13/23 History (Tylenol) acetaminophen 500 mg tablet 1,000 mg PO TID 05/13/23 05/13/23 History ammonium lactate 12 % lotion 1 applic topical BID Irritation to 05/13/23 05/13/23 History back, legs and arms benzonatate 100 mg capsule 100 mg PO TID PRN Cough 05/13/23 05/13/23 History guaifenesin 600 mg tablet, 600 mg PO BID PRN Congestion 05/13/23 05/13/23 History extended release 12 hr (Mucinex) hydrocortisone 1 % topical cream 1 applic topical BID 05/13/23 05/13/23 History lidocaine 4 % topical patch 1 patch topical DAILY Pain in left 05/13/23 05/13/23 History hip pantoprazole 40 mg tablet,delayed 40 mg PO QAM gastric erosions 05/13/23 05/13/23 History release (Protonix) polyethylene glycol 3350 17 gram 17 g PO QAM PRN Constipation 05/13/23 05/13/23 History oral powder packet (Miralax) Past Med/Surg History Medical History Aortic valve sclerosis Bladder stones History of colon polyps History of COVID-19 09/11/21 @ [facility] (asymptomatic, tested prior to procedure)--no issues Hearing deficit Centrilobular emphysema Left hip pain Anemia Lung nodule Acute pancreatitis Osteoarthritis Spinal stenosis B/L LE radiculopathy History of hypertension controlled since weight loss Mandibular fracture DDD (degenerative disc disease) BPH (benign prostatic hyperplasia) Surgical History History of ERCP (~11/30/20) History of esophagogastroduodenoscopy (EGD) last 09/29/21 @ [facility] History of colonoscopy Previous back surgery History of tonsillectomy and adenoidectomy Hx of toe surgery HAD TOENAIL REMOVED IN OFFICE 12/2018 Hx of tonsillectomy Hx of hernia repair RIGHT INGUINAL History of carpal tunnel surgery RIGHT HAND History of appendectomy Family History Mother Liver cancer Social History (Updated 05/13/23 @ 16:34 by Diane Vega PA-C) Smoking Status: Never smoker Tobacco Type: Cigarettes Second Hand Exposure: No; Do You Dip or Chew Tobacco: No; Hx Alcohol Use: Yes Alcohol type: wine Hx Substance Use: No Preferred Language: Czech Communication Ability: Effective Communication Ability Comment: pt is [place] Visual Impairment: No Limitations Order Picker Required: No Beliefs That Will Affect Care: None marital status: Current Living Situation: Spouse and Personal Care Facility Current Living Situation Comment: [facility] Feels Safe at Home: Yes Safety Concerns: Feels Safe At This Time Assistive Devices: Oxygen - Continuous and Walker Review of Systems Review of Systems: Unobtainable due to cognitive status Physical Exam Physical Exam: PE per Dr Perry Results & Data Results & Data Vital Signs (Past 12 Hours) Vital Signs Temp Pulse Pulse Resp BP BP Pulse Ox 05/13/23 15:00 78 22 92 05/13/23 13:00 72 20 05/13/23 11:00 78 20 141/66 H 93 05/13/23 09:45 78 20 149/69 H 92 05/13/23 09:19 66 20 93 05/13/23 09:12 70 05/13/23 08:56 36.5 C 66 20 133/70 86 L O2 Del Method O2 Flow Rate 05/13/23 15:00 Room Air 05/13/23 13:00 05/13/23 11:00 Nasal Cannula 2 05/13/23 09:45 Nasal Cannula 2 05/13/23 09:19 Nasal Cannula 2 05/13/23 09:12 05/13/23 08:56 Room Air Laboratory Results Short CBC 05/13/23 Range/Units 11:13 WBC 8.03 (4.8-10.8) K/ul Hgb 12.8 L (14.0-18.0) g/dl Hct 38.7 L (42.0-52.0) % Plt Count 207 (130-400) K/uL BMP 05/13/23 09:19 Sodium 140 Potassium 4.0 Chloride 108 H Carbon Dioxide 27 BUN 21 Creatinine 0.68 Glucose 100 H Calcium 9.6 Liver Function 05/13/23 Range/Units 09:19 Total Bilirubin 0.8 (0.2-1.0) mg/dl AST 15 (13-39) U/L ALT 9 (7-52) U/L Alkaline Phosphatase 118 H (34-104) U/L Albumin 4.0 (3.4-5.0) gm/dl Urine 05/13/23 Range/Units Unknown Urine Color Yellow Urine Appearance Clear (Clear) Urine pH 5.0 (4.5-7.5) Ur Specific [place] 1.024 (1.000-1.030) Urine Protein Negative (Negative) Urine Glucose (UA) Negative (Negative) Diagnostic Findings Cervical Spine CT 05/13/23 09:19 CT cervical spine wo con CLINICAL HISTORY: 87 years-old Male with fall. Acute neck pain status post fall COMPARISON: 05/03/2022 TECHNIQUE: Multiple axial CT images of the cervical spine were obtained without contrast. A dose lowering technique was utilized adhering to the principles of ALARA. FINDINGS: Moderate multilevel degenerative changes are again noted without acute fracture or subluxation identified. Chronic anterior subluxation of the left temporal mandibular joint with healed chronic fracture deformity. The cervical soft tissues appear unremarkable. No pneumothorax. Intralobular septal thickening of the lung apices. Mild tracheobronchial secretions. Atherosclerosis of the aorta and carotid arteries. IMPRESSION: No acute cervical spine fracture or subluxation. ACT 112: Negative or not required by law. The above report was generated using voice recognition software. It may contain grammatical, syntax or spelling errors. Electronically signed by: Roldan Gore M.D. 05/13/2023 11:02 AM Chest X-Ray 05/13/23 09:19 XR chest 1V portable HISTORY: fall COMPARISON: Chest 05/03/2022. FINDINGS: There is a 13 mm right lower lobe linear nodule again noted. Left basilar linear densities favor subsegmental atelectasis or scarring. Otherwise, lungs are clear. The heart is normal in size. This mildly tortuous and calcified thoracic aorta. Old, healed bilateral rib fractures again noted. No pneumothorax. No pleural effusions. IMPRESSION: 1. No acute process within the chest. 2. A 13 mm right lower lobe pulmonary nodule again noted. This is concerning for a primary bronchogenic malignancy. ACT 112: Negative or not required by law. Electronically signed by: Jeff Zhu M.D. 05/13/2023 10:[address] 05/13/23 09:[address] DOSE: 1624.04 mGy.cm HISTORY: Facial injury. fall TECHNIQUE: Multiaxial CT images of the maxillofacial region were performed and reformatted in the coronal plane without the use of contrast. A dose lowering technique was utilized adhering to the principles of ALARA. COMPARISON: CT facial bones 06/09/2018. FINDINGS: Right forehead and right periorbital soft tissue swelling. The visualized cervical spine, skull base, pterygoid plates, zygomatic arches, nasal bones, lamina papyracea, and orbital floors are intact. There is left nasal septal deviation. There is an old, healed fracture within the left mandibular c ondyle. No acute fractures within the mandible. There is a fluid level and inspissated secretions within the right maxillary sinus consistent with acute or chronic sinusitis. The globes and retrobulbar fat are intact. IMPRESSION: 1. No acute fractures within the maxillofacial region. 2. Right forehead and right periorbital soft tissue swelling. 3. Acute on chronic right maxillary sinusitis. ACT 112: Negative or not required by law. Electronically signed by: Jeff Zhu M.D. 05/13/2023 11:[address] 05/13/23 09:19 CT head/brain wo con CLINICAL HISTORY: 87 years-old Male with fall. Acute head trauma status post fall TECHNIQUE: Multiple axial CT images of the head were obtained without contrast. A dose lowering technique was utilized adhering to the principles of ALARA. COMPARISON: Head CT 05/03/2022 FINDINGS: No acute intracranial hemorrhage, intracranial mass, hydrocephalus, territorial ischemia or abnormal extra-axial collection. Extensive and confluent white matter hypodensities are again noted suggestive of advanced chronic microvascular ischemic disease. Involutional changes. Unchanged calcifications of the falx cerebrum with mild leftward deviation seen on image 28 series 2 which is a chronic finding. Cerebral vascular calcifications. The calvarium is intact. Mastoid air cells are generally clear. Mild to moderate degree of periosteal thickening of the right maxillary sinus with small air-fluid level. Small right forehead contusion on image 10 series 3. Prior bilateral lens repair. IMPRESSION: 1. No acute intracranial abnormality or vertebral fracture. 2. Small right forehead contusions. ACT 112: Negative or not required by law. The above report was generated using voice recognition software. It may contain grammatical, syntax or spelling errors. Electronically signed by: Roldan Gore M.D. 05/13/2023 10:50 AM Knee X-Ray 05/13/23 09:19 XR knee LT 3V CLINICAL HISTORY: fall COMPARISON: Left knee radiographs April 19, 2013. FINDINGS: Alignment of the left knee is anatomic. There is no acute fracture. There is no significant joint effusion. Superior patellar spurring is noted. Moderate patellofemoral compartment joint space narrowing is noted with osteophytosis. There is mild medial compartment joint space narrowing. IMPRESSION: 1. No acute fracture. 2. Moderate degenerative changes within the left knee. ACT 112: Negative or not required by law. Electronically signed by: Keshawn Mckeon M.D. 05/13/2023 10:07 AM Knee X-Ray 05/13/23 09:19 RIGHT KNEE 3 VIEWS HISTORY: Right knee pain. fall COMPARISON: None. FINDINGS: There is no fracture or dislocation. Soft tissues are unremarkable. No radiopaque foreign bodies. No knee effusion. Vascular calcifications are noted. The bones are osteopenic. Mild tricompartmental osteoarthritis. IMPRESSION: No acute fractures within the right knee. ACT 112: Negative or not required by law. Electronically signed by: Jeff Zhu M.D. 05/13/2023 9:58 AM Chest CTA 05/13/23 11:38 CT angio chest PE protocol CT DOSE: 616.49 mGy.cm HISTORY: 87 years-old Male with weakness, hypoxia. Acute weakness with hypoxia TECHNIQUE: Multiple CTA images of the chest were obtained after the intravenous administration of 92 ml Optiray. Coronal and sagittal MIPS were obtained from the axial data set and were submitted for review. All measurements were obtained according to NASCET criteria. A dose lowering technique was utilized adhering to the principles of ALARA. COMPARISON: CT abdomen and pelvis 06/04/2021, 11/28/2020, 08/11/2019, 11/11/2018. FINDINGS: CTA: Mild cardiomegaly. No pericardial effusion. Moderate to extensive coronary artery calcifications. Atherosclerosis of the thoracic aorta without aneurysm or dissection. Unremarkable pulmonary artery. CT CHEST: No thyroid nodule or lymphadenopathy. There is no pneumothorax or pleural effusion. Mild to moderate pulmonary emphysema with bronchial wall thickening and mild dependent subsegmental bibasilar atelectasis versus scarring. Irregular solid nodules in the basal right lower lobe on image 84 measures 1.3 x 1.3 cm containing a central subcentimeter calcification and peripheral bronchus. This measured 8 x 7 mm on the 2019 study and 11 mm on the 06/04/2021 exam. No additional pulmonary nodules identified. Central airways are patent. Cholecystectomy with pneumobilia. Colonic diverticulosis. Tiny hiatal hernia. Unremarkable soft tissues. No acute fracture. Healed chronic bilateral rib fractures. IMPRESSION: 1. No pulmonary emboli identified. 2. Emphysema with bronchitis. 3. Irregular slowly growing suspicious solid nodule within the right lower lobe measures 1.3 x 1.3 cm. This nodule originally measured 8 mm on the 2019 study. Please refer to below summary of Fleischner criteria recommendations for follow- up of incidental CT nodules (Db Amezcua, Guidelines for management of small pulmonary nodules detected on CT scans: A statement from the Fleischner Society, Radiology 237: [phone].) SOLID NODULES Solitary nodule size: >8 mm * either low or high risk patients - consider follow-up CT at 3 months, and/or CT-PET, and/or biopsy Note: newly detected indeterminate nodule in persons 35 years of age or older. * Low risk patients: minimal or absent history of smoking and/or other known risk factors * high risk patients: history of smoking or of other known risk factors (e.g. first degree relative with lung cancer, or exposure to asbestos, radon, uranium) * if a nodule up to 8 mm is partly solid or is ground glass further follow-up is required after 24 months to exclude possible slow growing adenocarcinoma (MANDA) ACT 112: Negative or not required by law. The above report was generated using voice recognition software. It may contain grammatical, syntax or spelling errors. Electronically signed by: Roldan Gore M.D. 05/13/2023 3:20 PM Supervising Physician Co-Signing Physician Notes 87-year-old male with PMH of dementia, known pulmonary nodule [patient has chosen to not pursue any further follow-up/investigation on this], BPH, DDD, AAS, postherpetic neuralgia came in from [facility] after a fall. Patient has dementia at baseline and history not much reliable. Per nursing staff, patient was getting out of the bed and going to the restroom at [facility] when he tripped and fell. And hence he was brought to the ED. Patient reports minimal pain at injury sites but no cervical spine/chest/pelvic compression tenderness. Patient currently feels better and would like to go home. Labs fairly WNL. UA suspicious of UTI, imagings reviewed. Imaging suggestive of bronchitis and acute on chronic sinusitis. For acute on chronic sinusitis/bronchitis/concern for UTI, Augmentin. Follow urine culture. For pulmonary nodule, patient has choosen not to pursue any further follow-up and investigation on this. For fall/laceration -right face and scalp laceration sutured and stapled respectively. Wound care consult. Fall precaution. PT/OT. Patient looks clinically dry, gentle IV fluid with LR at 65 mils an hour. Will use SCDs for dvt px for 1-2 days, then chemo Px if still hospitalized. On examination: GENERAL: Alert and awake. NAD, on RA. Cooperative, lacking insight. HEENT: No pallor, no icterus. Pupils equal, round and reactive to light. Oral mucosa dry. NECK: No JVD, no neck masses. HEART: S1 and S2 heard. Regular rate and rhythm. No murmur, no gallop. RESPIRATORY SYSTEM: Normal AP diameter. No accessory muscle use. No wheezing, no crackles. ABDOMEN: Soft, bowel sounds present, nontender, no distention. CENTRAL NERVOUS SYSTEM: No facial droop. Speech is clear. Obeys simple commands. Moves extremities. EXTREMITIES: No edema, no erythema seen. Face: sutured laceration x vertical x 2 cm at inferior to lateral corner of right eye. supraorbital soft tissue swelling noted x rt eye. Scalp: Rt parietal stapled laceration x approx 2.5 cm. I have seen and examined the patient and have discussed the case with the provider above. I agree with the assessment and plan as stated.
[2023-05-13 20:11] LABS: Adenovirus PCR Not Detected (NotDetected); Bordetella parapertussis PCR Not Detected (NotDetected); Bordetella pertussis PCR Not Detected (NotDetected); Chlamydia pneumoniae PCR Not Detected (NotDetected); Coronavirus 229E PCR Not Detected (NotDetected); Coronavirus CoV-2 (COVID19)PCR Not Detected (NotDetected); Coronavirus HKU1 PCR Not Detected (NotDetected); Coronavirus NL63 PCR Not Detected (NotDetected); Coronavirus OC43PCR Not Detected (NotDetected); Human Metapneumovirus PCR Not Detected (NotDetected); Influenza A PCR Not Detected (NotDetected); Influenza B PCR Not Detected (NotDetected); Mycoplasma pneumoniae PCR Not Detected (NotDetected); Parainfluenza Virus 1 PCR Not Detected (NotDetected); Parainfluenza Virus 2 PCR Not Detected (NotDetected); Parainfluenza Virus 3 PCR Not Detected (NotDetected); Parainfluenza Virus 4 PCR Not Detected (NotDetected); Respiratory Syncytial VirusPCR Not Detected (NotDetected); Rhinovirus/Enterovirus PCR Not Detected (NotDetected)
--- NOTE | 2023-05-13 20:32 | Electrocardiogram Report ---
Test Reason : Blood Pressure : / mmHG Vent. Rate : 060 BPM Atrial Rate : 060 BPM P-R Int : 168 ms QRS Dur : 130 ms QT Int : 448 ms P-R-T Axes : -22 -38 036 degrees QTc Int : 448 ms Normal sinus rhythm Left axis deviation Right bundle branch block Abnormal ECG When compared with ECG of 03-MAY-2022 17:45, No significant change was found Confirmed by Jonathan Wilcox ([id number]) on 05/13/2023 8:32:06 PM Referred By: REFERRED SELF Confirmed By:Javed Wilcox
[2023-05-13] MEDS ORDERED: ONDANSETRON INJ 2 MG/ML 2 ML VIAL IV PRN (22:02)
[2023-05-13] MEDS ORDERED: POLYETHYLENE (MIRALAX) 17 GM PACK PO PRN (22:02)
[2023-05-13] MEDS ORDERED: LACTATED RINGER'S 1,000 ML IV SCH (22:02)
[2023-05-13] MEDS ORDERED: TAMSULOSIN HCL 0.4 MG CAP PO SCH (22:02)
[2023-05-13] MEDS ORDERED: ALBUTEROL 0.083% NEBU SOLN 3 ML VIAL NEB PRN (22:02)
[2023-05-13] MEDS ORDERED: guaiFENesin 600 MG TABCR PO PRN (22:02)
[2023-05-13] MEDS ORDERED: MAGNESIUM HYDROXIDE SUSP 30 ML UDC PO PRN (22:02)
[2023-05-13] MEDS ORDERED: ACETAMINOPHEN 325 MG TAB PO PRN (22:02)
[2023-05-13] MEDS: HEPARIN SOD 5,000 UNIT/0.5 ML VIAL SQ SCH (22:54)
[2023-05-13] MEDS: AMOXICILLIN/CLAVULANATE 875 MG TAB PO SCH (22:54)
[2023-05-13] MEDS: ACETAMINOPHEN 325 MG TAB PO SCH (22:54)
[2023-05-14] MEDS: ACETAMINOPHEN 325 MG TAB PO SCH ×2 (05:19→13:33)
[2023-05-14 05:24] LABS: Hematocrit (blood only) 37.4 % (42.0-52.0); Hemoglobin 12.8 g/dl (14.0-18.0); Mean Corpuscular Hemoglobin 30.5 pg (25.0-34.0); Mean Corpuscular Hgb Conc 34.2 g/dL (32.0-36.0); Mean Corpuscular Volume 89.3 fL (80.0-100.0); Mean Platelet Volume 10.3 fL (9.4-12.4); Platelet Count 221 K/uL (130-400); RDW Coefficient of Variation 15.1 % (11.5-14.5); Red Blood Count 4.19 M/uL (4.70-6.10); White Blood Count 7.54 K/ul (4.8-10.8)
[2023-05-14 05:42] LABS: Albumin Globulin Ratio 1.3 (0.9-2); Albumin Level 3.9 gm/dl (3.4-5.0); BUN Creatinine Ratio 19.7 (10-20); Bilirubin,Total 0.9 mg/dl (0.2-1.0); Calcium 9.4 mg/dl (8.6-10.3); Est GFR (African American) 101.5 ml/min; Est GFR (Non-African American) 87.5 ml/min; Globulin 2.9 gm/dl (2.5-4.0); Potassium 3.5 mmol/L (3.5-5.1); Total Protein 6.8 gm/dl (6.0-8.3)
[2023-05-14] MEDS ORDERED: CHOLECALCIFEROL 1,000 UNITS 25 MCG TAB PO SCH (09:00)
[2023-05-14] MEDS ORDERED: LIDOCAINE 5% 1 PATCH TD SCH (09:00)
[2023-05-14] MEDS ORDERED: PANTOprazole 40 MG TAB PO SCH (09:00)
[2023-05-14] MEDS: AMOXICILLIN/CLAVULANATE 875 MG TAB PO SCH ×2 (09:06→16:39)
[2023-05-14] MEDS: HEPARIN SOD 5,000 UNIT/0.5 ML VIAL SQ SCH (09:06)
--- NOTE | 2023-05-14 09:33 | Hospitalist Progress Note ---
Date of Service May 14, 2023 Assessment & Plan (1) Fall: (2) Weakness: (3) Ambulatory dysfunction: (4) Laceration of scalp: (5) Laceration of face: (6) Skin tear of right upper extremity: (7) Contusion of knee, right: (8) Contusion of knee, left: Plan: Patient is 87-year-old male with PMH HTN, BPH, DDD, AAS, postherpetic neuralgia, pulmonary nodules presented to ER from [facility] for reported trip and fall. In ER vitals stable CT Head: No acute intracranial abnormality or vertebral fracture. Small right forehead contusions. Face CT: No acute fractures within the maxillofacial region. Right forehead and right periorbital soft tissue swelling. CT cervical spine: No acute cervical spine fracture or subluxation. Right knee x-ray: No acute fractures within the right knee Left knee x-ray:No acute fracture. Moderate degenerative changes within the left knee. In ER lacerations repaired Fall precautions PT/OT eval CBC, BMP in a.m. (9) Hypoxia: (10) Bronchitis: (11) Centrilobular emphysema: Plan: In ER patient noted to be hypoxic at 86% on room air currently saturating well on 2 L via nasal cannula CTA chest: No pulmonary emboli identified. Emphysema with bronchitis. Irregular slowly growing suspicious solid nodule within the right lower lobe measures 1.3 x 1.3 cm. This nodule originally measured 8 mm on the 2019 study. Supplemental oxygen Nebs Start Augmentin (12) Sinusitis: Plan: Face CT:. No acute fractures within the maxillofacial region. 2. Right forehead and right periorbital soft tissue swelling. 3. Acute on chronic right maxillary sinusitis. Start Augmentin (13) Abnormal urinalysis: Plan: UA: 2+ leuk esterase,> 30 WBC, 20-30 epithelial,+ budding with hyphae Urine culture pending Start Augmentin for possible UTI (14) Lung nodule: Plan: CTA chest: Irregular slowly growing suspicious solid nodule within the right lower lobe measures 1.3 x 1.3 cm. This nodule originally measured 8 mm on the 2019 study. Patient with known lung nodule. Per outpatient notes has chose no further monitoring as would not want treatment secondary to his age (15) BPH (benign prostatic hyperplasia): Plan: Continue tamsulosin (16) DDD (degenerative disc disease): Plan: On tramadol. We will hold tramadol currently as patient feels this caused his fall Tylenol DVT Prophylaxis Heparin SQ Full Code as per discussion with pt Follows with Ollie Wagner PA-C for routine care Pt was seen and care coordinated with Dr Perry. See addendum Admission and Anticipated Discharge Date Admission Date: May 13, 2023 Results & Data Results & Data Vital Signs (Past 12 Hours) Vital Signs Temp Pulse Pulse Resp BP Pulse Ox Pulse Ox 05/14/23 08:39 36.7 C 74 18 146/66 H 96 05/14/23 07:08 75 05/14/23 02:45 36.7 C 88 18 169/85 H 95 05/14/23 01:29 05/14/23 01:29 36.4 C L 73 20 168/84 H 96 05/13/23 22:20 72 05/13/23 22:02 36.4 C L 73 20 168/84 H 96 05/13/23 22:02 96 O2 Del Method O2 Del Method O2 Flow Rate O2 Flow Rate 05/14/23 08:39 Nasal Cannula 2 05/14/23 07:08 05/14/23 02:45 Nasal Cannula 2 05/14/23 01:29 Nasal Cannula 2 05/14/23 01:29 Nasal Cannula 2 05/13/23 22:20 05/13/23 22:02 Nasal Cannula 2 05/13/23 22:02 Nasal Cannula 2 Laboratory Results Short CBC 05/13/23 05/14/23 Range/Units 11:13 04:20 WBC 8.03 7.54 (4.8-10.8) K/ul Hgb 12.8 L 12.8 L (14.0-18.0) g/dl Hct 38.7 L 37.4 L (42.0-52.0) % Plt Count 207 221 (130-400) K/uL BMP 05/13/23 05/14/23 09:19 04:20 Sodium 140 141 Potassium 4.0 3.5 Chloride 108 H 107 Carbon Dioxide 27 25 BUN 21 13 Creatinine 0.68 0.66 Glucose 100 H 90 Calcium 9.6 9.4 Cardiac Enzymes 05/14/23 Range/Units 04:20 Total Creatine Kinase 112 (30-223) U/L Liver Function 05/13/23 05/14/23 Range/Units 09:19 04:20 Total Bilirubin 0.8 0.9 (0.2-1.0) mg/dl AST 15 17 (13-39) U/L ALT 9 11 (7-52) U/L Alkaline Phosphatase 118 H 122 H (34-104) U/L Albumin 4.0 3.9 (3.4-5.0) gm/dl Urine 05/13/23 Range/Units Unknown Urine Color Yellow Urine Appearance Clear (Clear) Urine pH 5.0 (4.5-7.5) Ur Specific [place] 1.024 (1.000-1.030) Urine Protein Negative (Negative) Urine Glucose (UA) Negative (Negative) Medications Administered Current Inpatient Medications Acetaminophen (Acetaminophen 325 Mg Tab) 650 mg PO Q8H [place] Stop: 06/12/23 21:59 Last Admin: 05/14/23 05:19 Dose: 650 mg Acetaminophen (Acetaminophen 325 Mg Tab) 650 mg PO Q4H PRN PRN Reason: Pain or Fever Stop: 06/12/23 22:01 Albuterol (Albuterol 0.083% Nebu Soln 3 Ml Vial) 2.5 mg NEB Q6R PRN; Protocol PRN Reason: Shortness Of Breath Or Wheezing Stop: 06/12/23 22:01 Amoxicillin/Clavulanate Potassium (Amoxicillin/Clavulanate 875 Mg Tab) 1 tab PO BIDM ON LICENSE OF [facility]; Protocol Stop: 05/20/23 22:01 Last Admin: 05/14/23 09:06 Dose: 1 tab Guaifenesin (Guaifenesin 600 Mg Tabcr) 600 mg PO BID PRN PRN Reason: Congestion Stop: 06/12/23 22:01 Heparin Sodium (Porcine) (Heparin Sod 5,000 Unit/0.5 Ml Vial) 5,000 units SQ Q12 [place] Stop: 06/12/23 21:59 Last Admin: 05/14/23 09:06 Dose: 5,000 units Lactated Ringer's (Lr) 1,000 mls @ 50 mls/hr IV .Q20H [place] Stop: 05/14/23 18:01 Last Admin: 05/13/23 22:55 Dose: 50 mls/hr Lidocaine (Lidocaine 5% 1 Patch) 1 patch TD QAM [place] Stop: 06/13/23 08:59 Last Admin: 05/14/23 09:06 Dose: 1 patch Magnesium Hydroxide (Magnesium Hydroxide Susp 30 Ml Udc) 30 ml PO Q12H PRN PRN Reason: Constipation Stop: 06/12/23 22:01 Miscellaneous (Remove Lidoderm Patch) 1 each N/A DAILY@2100 ON LICENSE OF [facility] Stop: 06/13/23 20:59 Ondansetron HCl (Ondansetron Inj 2 Mg/Ml 2 Ml Vial) 4 mg IV Q6H PRN PRN Reason: Nausea Stop: 06/12/23 22:01 Pantoprazole Sodium (Pantoprazole 40 Mg Tab) 40 mg PO QAM ON LICENSE OF [facility] Stop: 06/13/23 08:59 Last Admin: 05/14/23 09:07 Dose: 40 mg Polyethylene Glycol (Polyethylene (Miralax) 17 Gm Pack) 17 gm PO DAILY PRN PRN Reason: Constipation Stop: 06/12/23 22:01 Tamsulosin HCl (Tamsulosin Hcl 0.4 Mg Cap) 0.4 mg PO [facility] Stop: 06/12/23 22:01 Last Admin: 05/13/23 22:54 Dose: 0.4 mg Vitamin D (Cholecalciferol 1,000 Units 25 Mcg Tab) 2,000 units PO QAM ON LICENSE OF [facility] Stop: 06/13/23 08:59 Last Admin: 05/14/23 09:07 Dose: 2,000 units
--- NOTE | 2023-05-14 11:02 | XRay Report ---
XR tibia fibula LT 2V CLINICAL HISTORY: pain TECHNIQUE: 2 radiographic views of the left leg were obtained. Comparison: None available at the time of this dictation. FINDINGS: There is no evidence of an acute fracture. Osteophyte formation and joint space narrowing is seen. Joe priya appear demineralized. Vascular calcifications are seen. IMPRESSION: Degenerative changes are seen without evidence of acute fracture. ACT 112: Negative or not required by law. Electronically signed by: Tam De La Rosa M.D. 05/14/2023 11:00 AM
--- NOTE | 2023-05-14 11:03 | XRay Report ---
XR hip LT min 2V, XR femur LT 2V routine CLINICAL HISTORY: pain TECHNIQUE: 2 views of the left hip and 2 views of the left femur were obtained. Comparison: None available at the time of this dictation. FINDINGS: There is no evidence of an acute fracture. Degenerative changes are seen in the hip joint. No soft ti ssue abnormality is seen. IMPRESSION: Degenerative changes without evidence of acute abnormality. ACT 112: Negative or not required by law. Electronically signed by: Tam De La Rosa M.D. 05/14/2023 11:01 AM
--- NOTE | 2023-05-14 17:00 | Communication Note ---
Date of Service: May 14, 2023 By CMS guidelines, a determination that the admission or continued stay is not medically necessary has been made by a member of the Utilization Review co mmittee and a physician for this hospital stay. Therefore, a Code 44 will be completed and the inpatient admission will be changed to outpatient.
--- NOTE | 2023-05-14 17:00 | Discharge Summary ---
Discharge Summary Date of Service May 14, 2023 Notes For Next Care Provider Please followup for suture removal in one week. Medication Changes From Visit no changes Admission HPI Per Admitting Provider Patient is 87-year-old male with PMH HTN, BPH, DDD, AAS, postherpetic neuralgia, pulmonary nodules presented to ER with complaint of fall. Patient lives at [facility]. History obtained from patient, chart review, ER staff. Limited history obtained from patient secondary to mental status. ER staff report that EMS reported patient tripped and fell and hit head. At time patient denied any dizziness. No LOC was reported. I attempted to call [facility], however was unable to get response. Attempted contact emergency contacts also without response. Patient thinks the Tramadol caused him to fall. Currently he reports he is thirsty and hungry and denies any pain. He states he always has "sinus" congestion. Denies CRUZ, CP, SOB. Principal Dx & Hospital Course #1 = Principal Diagnosis (1) Fall: (2) Laceration of scalp: (3) Laceration of face: (4) Skin tear of right upper extremity: (5) Contusion of knee, right: (6) Contusion of knee, left: (7) Centrilobular emphysema: (8) Lung nodule: (9) BPH (benign prostatic hyperplasia): (10) DDD (degenerative disc disease): Plan Patient is 87-year-old man with a history of dementia who lives at [facility] with his . He presented after a fall while getting out of the bed to go to the restroom. The patient reports that his fall was precipitated by the use of tramadol. He and his daughter report that he has not used this in a long time although PDMP review reveals he was using it consistently in 2021. Neither of them remember at this. He was evaluated and expressed that he wanted to go home. However given his age and comorbidities he was admitted to the hospital. Urinalysis was suspicious for UTI and ultimately revealed no evidence of urinary tract infection. He also had concerns for possible sinusitis on head CT, however, patient reports chronic sinus issues with no acute changes. He was empirically placed on Augmentin which was not continued at discharge for these reasons. He did have a facial laceration and scalp laceration which was sutured separately in the ER. He and his daughter were given wound care instructions at discharge and will need to follow-up for suture removal within a week. Lab work remained stable throughout his hospital stay and there were no events on telemetry during this admission. At time of discharge he was asking to leave and daughter was at bedside, felt he was at his baseline. He was discharged in stable condition with close primary care follow-up recommended. Of note he does have a known pulmonary nodule and records reveal patient has chosen not to pursue any further follow-up or investigation on this. Also of note he underwent a two-step evaluation by respiratory and was found not to need any oxygen supplementation at discharge. Updated Medication List Medication Instructions Recorded Confirmed Type tamsulosin 0.4 mg capsule (Flomax) 0.4 mg PO HS 11/11/18 05/13/23 History cholecalciferol (vitamin D3) 50 50 mcg PO QAM 04/24/21 05/13/23 History mcg (2,000 unit) capsule (Vitamin D3) acetaminophen 325 mg tablet 650 mg PO QID PRN Fever 05/13/23 05/13/23 History (Tylenol) acetaminophen 500 mg tablet 1,000 mg PO TID 05/13/23 05/13/23 History ammonium lactate 12 % lotion 1 applic topical BID Irritation to 05/13/23 05/13/23 History back, legs and arms benzonatate 100 mg capsule 100 mg PO TID PRN Cough 05/13/23 05/13/23 History guaifenesin 600 mg tablet, 600 mg PO BID PRN Congestion 05/13/23 05/13/23 History extended release 12 hr (Mucinex) hydrocortisone 1 % topical cream 1 applic topical BID 05/13/23 05/13/23 History lidocaine 4 % topical patch 1 patch topical DAILY Pain in left 05/13/23 05/13/23 History hip pantoprazole 40 mg tablet,delayed 40 mg PO QAM gastric erosions 05/13/23 05/13/23 History release (Protonix) polyethylene glycol 3350 17 gram 17 g PO QAM PRN Constipation 05/13/23 05/13/23 History oral powder packet (Miralax) Hospital Stay Data Consultations 05/13/23 15:54 ED Decision to Admit Stat Diagnostic Imagining Performed 05/13/23 09:19 CT cervical spine wo con Stat CT face [CT facial bones wo con] Stat CT head/brain wo con Stat 05/13/23 11:38 CT angio chest PE protocol Stat Pending Results Patient Have Any Pending Studies at Discharge: No Discharge Instructions Given to Patient (Per Discharging Provider) Please take all medications as instructed on discharge as below. You were originally put on Augmentin out of concern for urinary tract infection. No evidence of this was found and Augmentin was stopped at discharge. It is recommended that you follow-up with your primary care doctor within 1 week of discharge from the hospital to ensure you are doing well after returning home. You will also need your stitches removed. Typical's suture removal time on the face is approximately 5 days and on the scalp is approximately 7 to 10 days. It was a pleasure taking care of you! Please call if you have any questions or problems. You can reach a [facility] hospitalist on duty at [facility] 24 hours a day by calling [phone]. Take care of yourself. Fariba Ramsey, DO [facility] Hospitalist Total Time Total Time Spent Total Time Spent (In Minutes): 60
--- NOTE | 2023-05-14 17:22 | Communication Note ---
Date of Service: May 14, 2023 By CMS guidelines, a determination that the admission or continued stay is not medically necessary has been made by a member of the UR committee and a ph ysician for this hospital stay, therefore a Code 44 will be completed and the Inpatient admission will be changed to outpatient. Sb Ceballos MD
== END 2023-05-14 18:11 | disposition home or self-care (01) ==
LOC: ED 09:04 → 2W 16:15 → INTOOBSV 16:15 → SUATTDRO 16:15 → 2W 21:34

== ENCOUNTER 2023-10-25 17:55 | Inpatient (IN) ==
[2023-10-25] MEDS: SODIUM CHLORIDE 0.9% 1,000 ML IV SCH ×3 (18:28→23:06)
[2023-10-25 18:41] LABS: Hematocrit (blood only) 39.1 % (42.0-52.0); Hemoglobin 13.6 g/dl (14.0-18.0); Mean Corpuscular Hemoglobin 30.6 pg (25.0-34.0); Mean Corpuscular Hgb Conc 34.8 g/dL (32.0-36.0); Mean Corpuscular Volume 88.1 fL (80.0-100.0); Mean Platelet Volume 10.4 fL (9.4-12.4); Platelet Count 189 K/uL (130-400); RDW Coefficient of Variation 14.5 % (11.5-14.5); RDW Standard Deviation 46.5 fL (36.4-46.3); Red Blood Count 4.44 M/uL (4.70-6.10); White Blood Count 18.35 K/ul (4.8-10.8)
[2023-10-25 18:58] LABS: Albumin Level 4.1 gm/dl (3.4-5.0); BUN Creatinine Ratio 24.4 (10-20); Bilirubin Direct 0.3 mg/dl (0-0.2); Bilirubin,Total 1.1 mg/dl (0.2-1.0); Calcium 9.9 mg/dl (8.6-10.3); Creatinine Clr Calc Pharmacy 64.3 ml/min; Est GFR (African American) 90.4 ml/min; Magnesium 1.8 mg/dl (1.7-2.4); Potassium 3.3 mmol/L (3.5-5.1)
--- NOTE | 2023-10-25 18:59 | XRay Report ---
SINGLE VIEW CHEST CLINICAL HISTORY: Sepsis. FINDINGS: An AP, portable, upright chest radiograph is compared to chest x-ray and chest CT dated 05/13/2023. The heart is enlarged noting atherosclerotic calcification and uncoiling of the thoracic aort a. The pulmonary vasculature is noncongested. Emphysema and chronic interstitial thickening is simila r to previous. There is bibasilar scarring/atelectasis. No airspace consolidation or large pleural ef fusion is identified. No pneumothorax is seen. The skeletal structures are osteopenic. The bony thora x is grossly intact. IMPRESSION: Cardiomegaly and emphysema with no acute cardiopulmonary abnormality identified. ACT 112: Negative or not required by law. Electronically signed by: Javid Mendoza M.D. 10/25/2023 6:58 PM
[2023-10-25 19:03] LABS: Basophils # (auto) 0.03 K/uL (0.00-0.20); Basophils % (auto) 0.2 %; Immature Granulocytes # (auto) 0.11 K/uL (0.01-0.20); Immature Granulocytes % (auto) 0.6 %; Lymphocytes # (auto) 0.33 K/uL (1.20-3.40); Lymphocytes % (auto) 1.8 %; Neutrophils # (auto) 16.78 K/uL (1.40-6.50); Neutrophils % (auto) 91.4 %; Troponin I High Sensitivity 13.3 pg/ml (0-20)
[2023-10-25 19:23] LABS: Base Excess VBG -1.8 mEq/L; HCO3 VBG 23 mmol/L; Oxygen Saturation VBG 77.1 %; PCO2 VBG 39 mmHg (38-50); PO2 VBG 46 mmHg; pH VBG 7.38 (7.36-7.41)
[2023-10-25] MEDS: CEFEPIME 2,000 MG/20 ML VIAL IV STA (19:25)
--- NOTE | 2023-10-25 19:30 | XRay Report ---
RIGHT KNEE 2 VIEWS CLINICAL HISTORY: Fall. Right knee injury. FINDINGS: AP and crosstable lateral views of the right knee are compared to study dated 05/13/2023. Th e skeletal structures are osteopenic. No fracture is seen. There is moderate degenerative narrowing o f the patellofemoral articulation. Mild narrowing is seen in the medial compartment. There is tiny ma rginal osteophytes, patellar enthesophyte, and degenerative beaking of the tibial spine. No joint eff usion is seen. There is prepatellar soft tissue swelling. Atherosclerotic calcification is noted in t he regional arteries. IMPRESSION: 1. Prepatellar soft tissue swelling with no fracture identified. 2. Osteopenia and degenerative change as above. Electronically signed by: Javid Mendoza M.D. 10/25/2023 7:29 PM
--- NOTE | 2023-10-25 19:34 | XRay Report ---
SINGLE VIEW PELVIS CLINICAL HISTORY: Fall. FINDINGS: An AP, portable, supine pelvic radiograph is compared to study dated 05/03/2022. The skelet al structures are osteopenic. There is no radiographic evidence of acute fracture involving the hips or bony pelvis. Degenerative sclerosis is noted in the sacroiliac joints. Mild osteoarthritic change and joint space narrowing is seen in the hips. The overlying soft tissues are within normal limits. P rostatic calcifications and phleboliths are seen in the pelvis. IMPRESSION: No acute bony abnormality is identified. Electronically signed by: Javid Mendoza M.D. 10/25/2023 7:32 PM
--- NOTE | 2023-10-25 19:55 | CT Scan Report ---
Exam(s): CT HEAD Without Contrast EXAM: CT Head Without Intravenous Contrast CLINICAL HISTORY: Reason for exam: fall, chi. TECHNIQUE: Axial computed tomography images of the head/brain without intravenous contrast. CTDI is 51.14 mGy and DLP is 899.15 mGy-cm. Automated exposure control was utilized for the study. A dose lowering technique was utilized adhering to the principles of ALARA. COMPARISON: No relevant prior studies available. FINDINGS: No acute intracranial hemorrhage. No midline shift or mass effect. The territorial aguiar-white matter differentiation is maintained throughout. Age-related cerebral volume loss. Periventricular and subcortical white matter hypoattenuation, consistent with chronic microangiopathy. The visualized orbits appear grossly unremarkable. The calvarium is intact. Opacified RIGHT maxillary sinus. IMPRESSION: No acute intracranial hemorrhage, midline shift, or mass effect. Electronically signed by: Breezy Castañeda MD 10/25/23 19:54 PM
--- NOTE | 2023-10-25 19:56 | CT Scan Report ---
Exam(s): CT C SPINE EXAM: CT Cervical Spine Without Intravenous Contrast CLINICAL HISTORY: Reason for exam: fall, neck pain. TECHNIQUE: Axial computed tomography images of the cervical spine without intravenous contrast. CTDI is 24.94 mGy and DLP is 520.94 mGy-cm. Automated exposure control was utilized for the study. A dose lowering technique was utilized adhering to the principles of ALARA. COMPARISON: No relevant prior studies available. FINDINGS: The vertebral body heights are maintained. The craniocervical junction is intact. The atlanto-dens interval is maintained. The dens is intact. There is no spondylolisthesis. Multilevel cervical spondylosis and degenerative disc disease. Straightening of the cervical lordosis. The unenhanced neck soft tissues are grossly unremarkable. The visualized lung apices are grossly clear. IMPRESSION: No acute fracture or subluxation of the cervical spine. Electronically signed by: Breezy Castañeda MD 10/25/23 19:55 PM
[2023-10-25 20:14] LABS: Appearance Urine Cloudy (Clear); Bacteria Urine Automated None Seen (None Seen); Bilirubin Urine Negative (Negative); Blood Urine 1+ (Negative); Color Urine Dark Yellow; Epithelial Cell Urine Auto 0-2 /hpf (0-2); Glucose Urine UA Negative (Negative); Ketones Urine Trace (Negative); Leukocyte Esterase Urine 3+ (Negative); Nitrite Urine Negative (Negative); Protein Urine 1+ (Negative); Specific Gravity Urine 1.025 (1.000-1.030); Urobilinogen Urine Negative (Negative); WBC Urine Automated >50 /hpf (0-5)
--- NOTE | 2023-10-25 20:22 | Emergency Department Note ---
Impression & Plan CHI (closed head injury), Fall, Acute UTI (urinary tract infection), Leukocytosis, Weakness, Confusion ED Provider Note ED Provider Note NAME: MARILUZ ANAYA AGE:88 SEX: Male : 1935 ARRIVES VIA: EMS INFORMANT: Patient, EMS ED PROVIDER(s): Aria Sunshine DO CHIEF COMPLAINT: Fall HPI: This is an 88-year-old male brought in by EMS after he fell at the facility where he resides, [facility]. EMS reports this was a witnessed fall. Patient states he did hit his head but did not blackout. Staff denied any loss of consciousness or seizure-like activity. EMS reports patient does not take any blood thinners. Patient denied any pain or concern for injury on EMS exam. Staff reported to EMS that he had complained of difficulty urinating earlier in the day. No recent fevers or chills. No vomiting. Patient does have a history of COPD. EMS noted he was hypoxic in the upper 80s and they did place him on 4 L via nasal cannula to improve his saturations in the mid 90s. Patient cannot recall why or how he fell today. PAST MEDICAL HISTORY:See Below PAST SURGICAL HISTORY:See Below FAMILY HISTORY:See Below SOCIAL HISTORY:See Below HOME MEDICATIONS:See Below ALLERGIES:See Below VITALS:See Below PHYSICAL EXAMINATION: GENERAL: alert, well appearing, well nourished, no distress, non-toxic EYE EXAM: normal conjunctiva, PERRL and EOM's grossly intact OROPHARYNX: no exudate, no erythema, lips, buccal mucosa, and tongue normal and mucous membranes are dry NECK: supple, no nuchal rigidity, no adenopathy, non-tender LUNGS: Clear to auscultation. Normal chest wall mechanics, no w/r/r HEART: no murmurs, S1 normal and S2 normal ABDOMEN: abdomen soft, non-tender, normo-active bowel sounds, no masses, no rebound or guarding. BACK: Back is symmetrical on inspection and there is no deformity, no midline tenderness, no CVA tenderness. SKIN: no rashes, petechiae, orbruising UPPER EXTREMITIES: upper extremities are grossly normal. FROM, nml pulses b/l. LOWER EXTREMITIES: No pitting edema. FROM, nml pulses b/l. NEURO EXAM: Oriented to person/place, confused to day/time, cranial nerves II- XII grossly intact, normal speech, no facial droop,nogross weakness of arms, no gross weakness of legs. Gross sensation intact. No ataxia. Vital Signs: reviewed and remarkable Differential Diagnosis: chi, ich, cva, occult fracture, contusion, dislocation, abrasion, infection, dehydration, electrolyte abnormality MEDICAL DECISION MAKING: This is an 88 yo male who presents via ems from a facility due to concern for a fall and possible uti. Staff reported to EMS patient c/o abdominal pain and dysuria, however denied this to EMS and myself on arrival. Staff also reported to EMS patient seemed confused compared to his baseline. He was afebrile and VS stable. Labs drawn and sent, IV established, EKG and xrays performed and interpreted at bedside, and patient placed on telemetry. Patient sent for CT head/cspine also due to fall. Urine collected and sent for UA given previously reported dysuria and did show infection. Given reported confusion, I suspect a component of encephalopathy due to infection. Likely infection may have led to weakness/dizziness which could have led to the fall also. Patient noted to have leukocytosis, elevated lactic acid and elevated procalcitonin. Given concern for evolving sepsis from UTI, he was given NSS to total 30 ml/kg based on IBW in addition to IV cefepime. Patient also noted to have elevated lft's. He denied abdominal pain and had no tenderness on exam. Patient remained stable while in the ER. Case discussed with the hospitalist for additional evaluation. I have a low suspicion for any additional occult traumatic injury. Consultation(s): 2100: DIscussed with Dr. Killian, [facility] hospitalist, for additional evaluation and mgmt. ER Treatment Provided: See below Diagnostics Interpreted By Me: -ECG: nsr at 67, left axis, RBBB, no acute ST/T wave changes -Cardiac Monitoring: An order was placed for continuous cardiac monitoring. The monitor shows a rate of 80 with normal sinus rhythm. -Laboratory studies: As stated above and show below. -Imaging studies: CT head: no acute ICH Triage Nursing Note Reviewed Prior/Outside Records Reviewed Critical Care: [] Past Med/Surg History Medical History Abnormal urinalysis Aortic valve sclerosis Bladder stones History of colon polyps History of COVID-19 09/11/21 @ [facility] (asymptomatic, tested prior to procedure)--no issues Hearing deficit Centrilobular emphysema Left hip pain Anemia Lung nodule Acute pancreatitis Osteoarthritis Spinal stenosis B/L LE radiculopathy History of hypertension controlled since weight loss Mandibular fracture DDD (degenerative disc disease) BPH (benign prostatic hyperplasia) Surgical History History of ERCP (~11/30/20) History of esophagogastroduodenoscopy (EGD) last 09/29/21 @ [place] History of colonoscopy Previous back surgery History of tonsillectomy and adenoidectomy Hx of toe surgery HAD TOENAIL REMOVED IN OFFICE 12/2018 Hx of tonsillectomy Hx of hernia repair RIGHT INGUINAL History of carpal tunnel surgery RIGHT HAND History of appendectomy Family History Mother Liver cancer Social History Smoking Status: Former smoker Tobacco Type: Cigarettes Second Hand Exposure: No; Do You Dip or Chew Tobacco: No; Hx Alcohol Use: Yes Alcohol type: hard liquor Hx Substance Use: No Preferred Language: Serbian Communication Ability: Effective Communication Ability Comment: pt is WIYOT Visual Impairment: No Limitations Die Maker Stamping Required: No Beliefs That Will Affect Care: None marital status: Current Living Situation: Spouse and Personal Care Facility Current Living Situation Comment: Lives at [facility] with his Ibeth Feels Safe at Home: Yes Assistive Devices: Walker Allergies Allergies Allergy/AdvReac Type Severity Reaction Status Date / Time meloxicam Allergy Mild RASH Verified 10/25/23 18:54 hydrochlorothiazide AdvReac Severe PANCREATITI Verified 10/25/23 18:54 S morphine AdvReac Severe convulsions Verified 10/25/23 18:54 gabapentin AdvReac Intermediate Fainting Verified 10/25/23 18:54 Home Meds Home Medications Medication Instructions Recorded Confirmed tamsulosin 0.4 mg capsule (Flomax) 0.4 mg PO HS 11/11/18 10/25/23 cholecalciferol (vitamin D3) 50 50 mcg PO QAM 04/24/21 10/25/23 mcg (2,000 unit) capsule (Vitamin D3) acetaminophen 325 mg tablet 650 mg PO Q6H PRN FEVER/PAIN 05/13/23 10/25/23 (Tylenol) acetaminophen 500 mg tablet 1,000 mg PO BID 05/13/23 10/25/23 hydrocortisone 1 % topical cream 1 applic topical QID 05/13/23 10/25/23 pantoprazole 40 mg tablet,delayed 40 mg PO QAM gastric erosions 05/13/23 10/25/23 release (Protonix) polyethylene glycol 3350 17 gram 17 g PO QAM PRN Constipation 05/13/23 10/25/23 oral powder packet (Miralax) diclofenac sodium 1 % topical gel 4 g topical Q6H PRN LEFT KNEE PAIN 10/25/23 10/25/23 Previous Rx's Medication Instructions Recorded L.acidop,casei,lactis,rham-B.lact,roxanne 1 cap PO DAILY 1 week #7 caps 10/27/23 625 mg (10 billion cell) capsule (Advanced Probiotic) cefdinir 300 mg capsule 300 mg PO BID 5 days #10 caps 10/27/23 sodium di- and 2 tab PO QID 2 days #16 tabs 10/27/23 monophosphate-potassium phos monobasic 250 mg tablet (Phospha Neutral) Results & Data (ED) Vital Signs Vital Signs - 24 hr 10/25/23 18:12 10/25/23 18:28 10/25/23 18:28 Temperature 36.6 C Temperature Source Oral Pulse Rate 73 70 Pulse Rate [Apical] 73 Respiratory Rate 20 20 Respiratory Effort / Characteristics Respiratory Depth Respiratory Pattern Blood Pressure 126/65 Blood Pressure [Right Arm] 126/65 Blood Pressure Mean 85 Blood Pressure Mean [Right Arm] 85 Pulse Oximetry 90 94 Oxygen Delivery Method Room Air Room Air Sepsis Recent Fever Within 48 Hours No Sepsis New/Unexplained Change in Mental Status No Sepsis Action Taken by Nursing No Action Required 10/25/23 18:28 10/25/23 19:01 10/25/23 19:01 Temperature Temperature Source Pulse Rate 68 Pulse Rate [Apical] 66 Respiratory Rate 18 18 Respiratory Effort / Characteristics Non-Labored Respiratory Depth Normal Respiratory Pattern Regular Blood Pressure Blood Pressure [Right Arm] 144/68 H Blood Pressure Mean Blood Pressure Mean [Right Arm] 93 Pulse Oximetry 90 95 95 Oxygen Delivery Method Room Air Room Air Room Air Sepsis Recent Fever Within 48 Hours Sepsis New/Unexplained Change in Mental Status Sepsis Action Taken by Nursing Laboratory Data 10/27/23 06:25 10/27/23 06:25 Lab Results 10/25/23 10/25/23 10/25/23 Range/Units 18:10 19:00 19:07 WBC 18.35 H (4.8-10.8) K/ul RBC 4.44 L (4.70-6.10) M/uL Hgb 13.6 L (14.0-18.0) g/dl Hct 39.1 L (42.0-52.0) % MCV 88.1 (80.0-100.0) fL MCH 30.6 (25.0-34.0) pg MCHC 34.8 (32.0-36.0) g/dL RDW Std Deviation 46.5 H (36.4-46.3) fL RDW Coeff of Jocelyn 14.5 (11.5-14.5) % Plt Count 189 (130-400) K/uL MPV 10.4 (9.4-12.4) fL Immature Gran % (Auto) 0.6 % Neut % (Auto) 91.4 % Lymph % (Auto) 1.8 % [place] % (Auto) 6.0 % Eos % (Auto) 0.0 % Baso % (Auto) 0.2 % Neut # (Auto) 16.78 H (1.40-6.50) K/uL Lymph # (Auto) 0.33 L (1.20-3.40) K/uL [place] # (Auto) 1.10 H (0.11-0.59) K/uL Eos # (Auto) 0.00 (0.00-0.50) K/uL Baso # (Auto) 0.03 (0.00-0.20) K/uL Immature Gran # (Auto) 0.11 (0.01-0.20) K/uL VBG pH 7.38 (7.36-7.41) VBG pCO2 39 (38-50) mmHg VBG pO2 46 mmHg VBG HCO3 23 mmol/L VBG O2 Saturation 77.1 % VBG Base Excess -1.8 mEq/L Sodium 138 (136-145) mmol/L Potassium 3.3 L (3.5-5.1) mmol/L Chloride 107 (98-107) mmol/L Carbon Dioxide 23 (21-32) mmol/L Anion Gap 8 (3-11) BUN 21 (6-23) mg/dl Creatinine 0.86 (0.6-1.4) mg/dl Est Cr Clr Drug Dosing 64.3 ml/min Est GFR ( Amer) 90.4 ml/min Est GFR (Non-Af Amer) 78.0 ml/min BUN/Creatinine Ratio 24.4 H (10-20) Glucose 174 H (70-99(Fasting)) mg/dl Lactate 2.7 H* (0.4-2.0) mmol/L Calcium 9.9 (8.6-10.3) mg/dl Magnesium 1.8 (1.7-2.4) mg/dl Total Bilirubin 1.1 H (0.2-1.0) mg/dl Direct Bilirubin 0.3 H (0-0.2) mg/dl AST 60 H (13-39) U/L ALT 69 H (7-52) U/L Alkaline Phosphatase 121 H (34-104) U/L Troponin I High Sens 13.3 (0-20) pg/ml Total Protein 7.0 (6.0-8.3) gm/dl Albumin 4.1 (3.4-5.0) gm/dl Procalcitonin 5.00 H (0-0.5) ng/ml Urine Color Dark Yellow Urine Appearance Cloudy A (Clear) Urine pH 5.0 (4.5-7.5) Ur Specific Tracy 1.025 (1.000-1.030) Urine Protein 1+ H (Negative) Urine Glucose (UA) Negative (Negative) Urine Ketones Trace H (Negative) Urine Blood 1+ H (Negative) Urine Nitrite Negative (Negative) Urine Bilirubin Negative (Negative) Urine Urobilinogen Negative (Negative) Ur Leukocyte Esterase 3+ H (Negative) Urine WBC (Auto) >50 H (0-5) /hpf Urine RBC (Auto) 6-10 H (0-2) /hpf U Hyaline Cast (Auto) 3-5 H (0-2) /lpf U Epithel Cells (Auto) 0-2 (0-2) /hpf Urine Bacteria (Auto) None Seen (None Seen) Urine Yeast Present A (None Prsent) 10/25/23 Range/Units 20:05 WBC (4.8-10.8) K/ul RBC (4.70-6.10) M/uL Hgb (14.0-18.0) g/dl Hct (42.0-52.0) % MCV (80.0-100.0) fL MCH (25.0-34.0) pg MCHC (32.0-36.0) g/dL RDW Std Deviation (36.4-46.3) fL RDW Coeff of Jocelyn (11.5-14.5) % Plt Count (130-400) K/uL MPV (9.4-12.4) fL Immature Gran % (Auto) % Neut % (Auto) % Lymph % (Auto) % [place] % (Auto) % Eos % (Auto) % Baso % (Auto) % Neut # (Auto) (1.40-6.50) K/uL Lymph # (Auto) (1.20-3.40) K/uL [place] # (Auto) (0.11-0.59) K/uL Eos # (Auto) (0.00-0.50) K/uL Baso # (Auto) (0.00-0.20) K/uL Immature Gran # (Auto) (0.01-0.20) K/uL VBG pH (7.36-7.41) VBG pCO2 (38-50) mmHg VBG pO2 mmHg VBG HCO3 mmol/L VBG O2 Saturation % VBG Base Excess mEq/L Sodium (136-145) mmol/L Potassium (3.5-5.1) mmol/L Chloride (98-107) mmol/L Carbon Dioxide (21-32) mmol/L Anion Gap (3-11) BUN (6-23) mg/dl Creatinine (0.6-1.4) mg/dl Est Cr Clr Drug Dosing ml/min Est GFR ( Amer) ml/min Est GFR (Non-Af Amer) ml/min BUN/Creatinine Ratio (10-20) Glucose (70-99(Fasting)) mg/dl Lactate 1.6 (0.4-2.0) mmol/L Calcium (8.6-10.3) mg/dl Magnesium (1.7-2.4) mg/dl Total Bilirubin (0.2-1.0) mg/dl Direct Bilirubin (0-0.2) mg/dl AST (13-39) U/L ALT (7-52) U/L Alkaline Phosphatase (34-104) U/L Troponin I High Sens (0-20) pg/ml Total Protein (6.0-8.3) gm/dl Albumin (3.4-5.0) gm/dl Procalcitonin (0-0.5) ng/ml Urine Color Urine Appearance (Clear) Urine pH (4.5-7.5) Ur Specific Tracy (1.000-1.030) Urine Protein (Negative) Urine Glucose (UA) (Negative) Urine Ketones (Negative) Urine Blood (Negative) Urine Nitrite (Negative) Urine Bilirubin (Negative) Urine Urobilinogen (Negative) Ur Leukocyte Esterase (Negative) Urine WBC (Auto) (0-5) /hpf Urine RBC (Auto) (0-2) /hpf U Hyaline Cast (Auto) (0-2) /lpf U Epithel Cells (Auto) (0-2) /hpf Urine Bacteria (Auto) (None Seen) Urine Yeast (None Prsent) Administered Medications Discontinued Medications Acetaminophen (Acetaminophen 500 Mg Tab) 1,000 mg PO BID [place] Stop: 11/25/23 08:59 Last Admin: 10/27/23 08:07 Dose: 1,000 mg Documented By: Admin: 10/26/23 20:46 Dose: 1,000 mg Documented By: Admin: 10/26/23 08:20 Dose: 1,000 mg Documented By: CS Heparin Sodium (Porcine) (Heparin Sod 5,000 Unit/0.5 Ml Vial) 5,000 units SQ Q12 [place] Stop: 11/25/23 08:59 Last Admin: 10/27/23 08:07 Dose: 5,000 units Documented By: Admin: 10/26/23 20:46 Dose: 5,000 units Documented By: Admin: 10/26/23 08:32 Dose: 5,000 units Documented By: CS Hydrocortisone (Hydrocortisone 1% Crm 30 Gm Tube) 1 appln EXT QID [place] Stop: 11/25/23 08:59 Last Admin: 10/27/23 12:06 Dose: Not Given Documented By: Admin: 10/27/23 07:46 Dose: Not Given Documented By: Admin: 10/27/23 05:36 Dose: Not Given Documented By: Admin: 10/26/23 17:25 Dose: Not Given Documented By: Admin: 10/26/23 12:40 Dose: Not Given Documented By: Admin: 10/26/23 09:32 Dose: Not Given Documented By: OSVALDO Sodium Chloride (Nss) 1,000 mls @ 999 mls/hr IV .Q1H1M [place] Stop: 10/25/23 19:15 Last Infusion: 10/25/23 19:25 Dose: Infused Documented By: Admin: 10/25/23 18:28 Dose: 999 mls/hr Documented By: INGRID Cefepime HCl (Maxipime) 2,000 mg in 20 mls @ 5 mls/min IV NOW STA; Protocol Stop: 10/25/23 19:02 Last Admin: 10/25/23 19:25 Dose: 5 mls/min Documented By: SEBASTIÁN Sodium Chloride (Nss) 1,000 mls @ 250 mls/hr IV .Q4H [place] Stop: 11/24/23 20:29 Last Infusion: 10/25/23 22:58 Dose: Infused Documented By: Admin: 10/25/23 21:03 Dose: 250 mls/hr Documented By: SEBASTIÁN Cefepime HCl 2,000 mg/ Syringe 20 mls @ 5 mls/min IV Q12H [place]; Protocol Stop: 11/05/23 07:59 Last Admin: 10/27/23 08:08 Dose: 5 mls/min Documented By: Admin: 10/26/23 20:45 Dose: 5 mls/min Documented By: Admin: 10/26/23 08:26 Dose: 5 mls/min Documented By: OSVALDO Sodium Chloride (Nss) 1,000 mls @ 100 mls/hr IV .Q10H [place] Stop: 10/26/23 08:55 Last Infusion: 10/26/23 09:25 Dose: Infused Documented By: Admin: 10/25/23 23:06 Dose: 100 mls/hr Documented By: AZEB Lactobacillus Acidophilus (Advanced Probiotic 625 Mg Capsule) 1,250 mg PO DAILY [place] Stop: 11/25/23 09:44 Last Admin: 10/27/23 08:07 Dose: 1,250 mg Documented By: Admin: 10/26/23 10:33 Dose: 1,250 mg Documented By: OSVALDO Pantoprazole Sodium (Pantoprazole 40 Mg Tab) 40 mg PO QAM [place] Stop: 11/25/23 08:59 Last Admin: 10/27/23 08:08 Dose: 40 mg Documented By: Admin: 10/26/23 08:21 Dose: 40 mg Documented By: OSVALDO Potassium Chloride (Potassium Chloride Crtab 20 Meq Tabcr) 40 meq PO NOW STA Stop: 10/27/23 08:48 Last Admin: 10/27/23 09:40 Dose: 40 meq Documented By: EVENS Potassium Phosphate (Pot Phosphate Monobasic W/ Sod Tab) 2 tab PO QID [place] Stop: 10/28/23 13:01 Last Admin: 10/27/23 12:06 Dose: 2 tab Documented By: Admin: 10/27/23 09:41 Dose: 2 tab Documented By: EVENS Tamsulosin HCl (Tamsulosin Hcl 0.4 Mg Cap) 0.4 mg PO HS [facility] Stop: 11/25/23 20:59 Last Admin: 10/26/23 20:46 Dose: 0.4 mg Documented By: GWENDOLYN Vitamin D (Cholecalciferol 25 Mcg (1000 Units) Tab) 50 mcg PO QAM [place] Stop: 11/25/23 08:59 Last Admin: 10/27/23 08:08 Dose: 50 mcg Documented By: Admin: 10/26/23 08:20 Dose: 50 mcg Documented By: OSVALDO Imaging Data Radiologist's Impression: Chest X-Ray 10/25/23 18:05 SINGLE VIEW CHEST CLINICAL HISTORY: Sepsis. FINDINGS: An AP, portable, upright chest radiograph is compared to chest x-ray and chest CT dated 05/13/2023. The heart is enlarged noting atherosclerotic calcification and uncoiling of the thoracic aorta. The pulmonary vasculature is noncongested. Emphysema and chronic interstitial thickening is similar to previous. There is bibasilar scarring/atelectasis. No airspace consolidation or large pleural effusion is identified. No pneumothorax is seen. The skeletal structures are osteopenic. The bony thorax is grossly intact. IMPRESSION: Cardiomegaly and emphysema with no acute cardiopulmonary abnormality identified. ACT 112: Negative or not required by law. Electronically signed by: Javid Mendoza M.D. 10/25/2023 6:[address] 10/25/23 18:32 Exam(s): CT C SPINE EXAM: CT Cervical Spine Without Intravenous Contrast CLINICAL HISTORY: Reason for exam: fall, neck pain. TECHNIQUE: Axial computed tomography images of the cervical spine without intravenous contrast. CTDI is 24.94 mGy and DLP is 520.94 mGy-cm. Automated exposure control was utilized for the study. A dose lowering technique was utilized adhering to the principles of ALARA. COMPARISON: No relevant prior studies available. FINDINGS: The vertebral body heights are maintained. The craniocervical junction is intact. The atlanto-dens interval is maintained. The dens is intact. There is no spondylolisthesis. Multilevel cervical spondylosis and degenerative disc disease. Straightening of the cervical lordosis. The unenhanced neck soft tissues are grossly unremarkable. The visualized lung apices are grossly clear. IMPRESSION: No acute fracture or subluxation of the cervical spine. Electronically signed by: Breezy Castañeda MD 10/25/23 19:[address] 10/25/23 18:32 Exam(s): CT HEAD Without Contrast EXAM: CT Head Without Intravenous Contrast CLINICAL HISTORY: Reason for exam: fall, chi. TECHNIQUE: Axial computed tomography images of the head/brain without intravenous contrast. CTDI is 51.14 mGy and DLP is 899.15 mGy-cm. Automated exposure control was utilized for the study. A dose lowering technique was utilized adhering to the principles of ALARA. COMPARISON: No relevant prior studies available. FINDINGS: No acute intracranial hemorrhage. No midline shift or mass effect. The territorial aguiar-white matter differentiation is maintained throughout. Age-related cerebral volume loss. Periventricular and subcortical white matter hypoattenuation, consistent with chronic microangiopathy. The visualized orbits appear grossly unremarkable. The calvarium is intact. Opacified RIGHT maxillary sinus. IMPRESSION: No acute intracranial hemorrhage, midline shift, or mass effect. Electronically signed by: Breezy Castañeda MD 10/25/23 19:54 PM Knee X-Ray 10/25/23 18:32 RIGHT KNEE 2 VIEWS CLINICAL HISTORY: Fall. Right knee injury. FINDINGS: AP and crosstable lateral views of the right knee are compared to study dated 05/13/2023. The skeletal structures are osteopenic. No fracture is seen. There is moderate degenerative narrowing of the patellofemoral articulation. Mild narrowing is seen in the medial compartment. There is tiny marginal osteophytes, patellar enthesophyte, and degenerative beaking of the tibial spine. No joint effusion is seen. There is prepatellar soft tissue swelling. Atherosclerotic calcification is noted in the regional arteries. IMPRESSION: 1. Prepatellar soft tissue swelling with no fracture identified. 2. Osteopenia and degenerative change as above. Electronically signed by: Javid Mendoza M.D. 10/25/2023 7:29 PM Pelvis X-Ray 10/25/23 18:32 SINGLE VIEW PELVIS CLINICAL HISTORY: Fall. FINDINGS: An AP, portable, supine pelvic radiograph is compared to study dated 05/03/2022. The skeletal structures are osteopenic. There is no radiographic evidence of acute fracture involving the hips or bony pelvis. Degenerative sclerosis is noted in the sacroiliac joints. Mild osteoarthritic change and joint space narrowing is seen in the hips. The overlying soft tissues are within normal limits. Prostatic calcifications and phleboliths are seen in the pelvis. IMPRESSION: No acute bony abnormality is identified. Electronically signed by: Javid Mendoza M.D. 10/25/2023 7:32 PM Discharge Plan Visit Data Chief Complaint: Fall Stated Complaint: FALL, UTI SYMTOMS ED Provider: Aria Sunshine Discharge Problem: CHI (closed head injury), Fall, Acute UTI (urinary tract infection), Leukocytosis, Weakness, Confusion Patient Disposition: Admitted As Inpatient Discharge Instructions Interventions: ED Discharge Assessment Last Done: 10/25/23 22:52
--- NOTE | 2023-10-25 22:06 | History & Physical Report ---
Date of Service October 25, 2023 Assessment & Plan (1) Fall: Plan: 88-year-old male with past medical history significant for emphysema, pulmonary nodule, aortic valve sclerosis, BPH, bladder stones, degenerative disc disease, bilateral leg edema, postherpetic neuralgia, history of tobacco abuse, currently living at [facility] with his and ambulates with a walker comes because of fall and found to have UTI. Patient states was going to bathroom and at the bathroom door slipped and fell backwards. Hit his head. No loss of consciousness. Was able to get up with assistance. Currently alert and oriented and able to give his history. Denies any headache. No dizziness. No runny nose or sore throat. No cough. No difficulty swallowing. Appetite is okay. Denies any chest pain or shortness of breath. No nausea. No abdominal pain. Normal bowel and bladder movements. Seems at [facility] patient told that he is having difficulty micturating but currently states he micturated twice last night. Currently hemodynamically stable. Fall Imaging studies okay Ambulates with a walker PT OT Will monitor UTI Could be contributing to his fall Received cefepime in the ER which will be continued Follow the urine cultures History of pulmonary nodule Follow-up with PCP BPH On Flomax Will monitor for urinary retention. GERD Protonix DVT prophylaxis Heparin subcuq Disposition Medical floor Full code History of Present Illness Chief Complaint: Fall and UTI Primary Care Provider: Wally Denson DO 88-year-old male with past medical history significant for emphysema, pulmonary nodule, aortic valve sclerosis, BPH, bladder stones, degenerative disc disease, bilateral leg edema, postherpetic neuralgia, history of tobacco abuse, currently living at [facility] with his and ambulates with a walker comes because of fall and found to have UTI. Patient states was going to bathroom and at the bathroom door slipped and fell backwards. Hit his head. No loss of consciousness. Was able to get up with assistance. Currently alert and oriented and able to give his history. Denies any headache. No dizziness. No runny nose or sore throat. No cough. No difficulty swallowing. Appetite is okay. Denies any chest pain or shortness of breath. No nausea. No abdominal pain. Normal bowel and bladder movements. Seems at [facility] patient told that he is having difficulty micturating but currently states he micturated twice last night. Currently hemodynamically stable. Past medical history. As mentioned above Past surgical history. Appendectomy ,right carpal tunnel surgery, colonoscopy and EGD. ERCP. Injection lumbosacral spine. Laparoscopic cholecystectomy. Laparoscopic right inguinal hernia. Tonsillectomy. Cataract surgery. Remove of lumbar spine lamina. Social history. . No smoking. Currently no alcohol use. No drug use. Family history. Brother had brain cancer. Mother had liver cancer. Allergies Allergy/AdvReac Type Severity Reaction Status Date / Time meloxicam Allergy Mild RASH Verified 10/25/23 18:54 hydrochlorothiazide AdvReac Severe PANCREATITI Verified 10/25/23 18:54 S morphine AdvReac Severe convulsions Verified 10/25/23 18:54 gabapentin AdvReac Intermediate Fainting Verified 10/25/23 18:54 Home Medications Medication Instructions Recorded Confirmed Type tamsulosin 0.4 mg capsule (Flomax) 0.4 mg PO HS 11/11/18 10/25/23 History cholecalciferol (vitamin D3) 50 50 mcg PO QAM 04/24/21 10/25/23 History mcg (2,000 unit) capsule (Vitamin D3) acetaminophen 325 mg tablet 650 mg PO Q6H PRN FEVER/PAIN 05/13/23 10/25/23 History (Tylenol) acetaminophen 500 mg tablet 1,000 mg PO BID 05/13/23 10/25/23 History hydrocortisone 1 % topical cream 1 applic topical QID 05/13/23 10/25/23 History pantoprazole 40 mg tablet,delayed 40 mg PO QAM gastric erosions 05/13/23 10/25/23 History release (Protonix) polyethylene glycol 3350 17 gram 17 g PO QAM PRN Constipation 05/13/23 10/25/23 History oral powder packet (Miralax) diclofenac sodium 1 % topical gel 4 g topical Q6H PRN LEFT KNEE PAIN 10/25/23 10/25/23 History Past Med/Surg History Medical History Abnormal urinalysis Aortic valve sclerosis Bladder stones History of colon polyps History of COVID-19 09/11/21 @ [facility] (asymptomatic, tested prior to procedure)--no issues Hearing deficit Centrilobular emphysema Left hip pain Anemia Lung nodule Acute pancreatitis Osteoarthritis Spinal stenosis B/L LE radiculopathy History of hypertension controlled since weight loss Mandibular fracture DDD (degenerative disc disease) BPH (benign prostatic hyperplasia) Surgical History History of ERCP (~11/30/20) History of esophagogastroduodenoscopy (EGD) last 09/29/21 @ [place] History of colonoscopy Previous back surgery History of tonsillectomy and adenoidectomy Hx of toe surgery HAD TOENAIL REMOVED IN OFFICE 12/2018 Hx of tonsillectomy Hx of hernia repair RIGHT INGUINAL History of carpal tunnel surgery RIGHT HAND History of appendectomy Family History Mother Liver cancer Social History Smoking Status: Former smoker Tobacco Type: Cigarettes Second Hand Exposure: No; Do You Dip or Chew Tobacco: No; Hx Alcohol Use: Yes Alcohol type: hard liquor Hx Substance Use: No Preferred Language: Sudanese Communication Ability: Effective Communication Ability Comment: pt is [place] Visual Impairment: No Limitations Litigation Secretary Required: No Beliefs That Will Affect Care: None marital status: Current Living Situation: Spouse and Personal Care Facility Current Living Situation Comment: Lives at [facility] with his Ibeth Feels Safe at Home: Yes Assistive Devices: Denture - Upper and Walker Review of Systems Review of Systems: All systems reviewed & are unremarkable except as noted in HPI & below Physical Exam Physical Exam: General- Not in distress Head- atraumatic Eyes- PERRL. ENT- oropharynx clear Neck- supple, no JVD. Lungs- clear to auscultation no wheezing or crackles. Heart- regular rhythm; no murmur, no gallop. Abdomen- normal bowel sounds, soft, nontender, no distension. Extremities- mild pretibial edema present, no erythema seen. Neuro- alert, oriented x 3; PERRL, no facial palsy; no dysarthria; motor 5/5 bilaterally; Results & Data Results & Data Vital Signs (Past 12 Hours) Vital Signs Temp Pulse Pulse Resp BP BP Pulse Ox 10/25/23 19:01 68 18 95 10/25/23 19:01 66 18 144/68 H 95 10/25/23 18:28 90 10/25/23 18:28 36.6 C 73 20 126/65 94 10/25/23 18:28 70 20 126/65 90 10/25/23 18:12 73 O2 Del Method 10/25/23 19:01 Room Air 10/25/23 19:01 Room Air 10/25/23 18:28 Room Air 10/25/23 18:28 Room Air 10/25/23 18:28 Room Air 10/25/23 18:12 Diagnostic Findings Laboratory Results WBC 18.35 K/ul (4.8-10.8) H 10/25/23 18:10 RBC 4.44 M/uL (4.70-6.10) L 10/25/23 18:10 Hgb 13.6 g/dl (14.0-18.0) L 10/25/23 18:10 Hct 39.1 % (42.0-52.0) L 10/25/23 18:10 MCV 88.1 fL (80.0-100.0) 10/25/23 18:10 MCH 30.6 pg (25.0-34.0) 10/25/23 18:10 MCHC 34.8 g/dL (32.0-36.0) 10/25/23 18:10 RDW Std Deviation 46.5 fL (36.4-46.3) H 10/25/23 18:10 RDW Coeff of Jocelyn 14.5 % (11.5-14.5) 10/25/23 18:10 Plt Count 189 K/uL (130-400) 10/25/23 18:10 MPV 10.4 fL (9.4-12.4) 10/25/23 18:10 Immature Gran % (Auto) 0.6 % 10/25/23 18:10 Neut % (Auto) 91.4 % 10/25/23 18:10 Lymph % (Auto) 1.8 % 10/25/23 18:10 Gilchrist % (Auto) 6.0 % 10/25/23 18:10 Eos % (Auto) 0.0 % 10/25/23 18:10 Baso % (Auto) 0.2 % 10/25/23 18:10 Neut # (Auto) 16.78 K/uL (1.40-6.50) H 10/25/23 18:10 Lymph # (Auto) 0.33 K/uL (1.20-3.40) L 10/25/23 18:10 Gilchrist # (Auto) 1.10 K/uL (0.11-0.59) H 10/25/23 18:10 Eos # (Auto) 0.00 K/uL (0.00-0.50) 10/25/23 18:10 Baso # (Auto) 0.03 K/uL (0.00-0.20) 10/25/23 18:10 Immature Gran # (Auto) 0.11 K/uL (0.01-0.20) 10/25/23 18:10 VBG pH 7.38 (7.36-7.41) 10/25/23 19:07 VBG pCO2 39 mmHg (38-50) 10/25/23 19:07 VBG pO2 46 mmHg 10/25/23 19:07 VBG HCO3 23 mmol/L 10/25/23 19:07 VBG O2 Saturation 77.1 % 10/25/23 19:07 VBG Base Excess -1.8 mEq/L 10/25/23 19:07 Sodium 138 mmol/L (136-145) 10/25/23 18:10 Potassium 3.3 mmol/L (3.5-5.1) L 10/25/23 18:10 Chloride 107 mmol/L (98-107) 10/25/23 18:10 Carbon Dioxide 23 mmol/L (21-32) 10/25/23 18:10 Anion Gap 8 (3-11) 10/25/23 18:10 BUN 21 mg/dl (6-23) 10/25/23 18:10 Creatinine 0.86 mg/dl (0.6-1.4) 10/25/23 18:10 Est Cr Clr Drug Dosing 64.3 ml/min 10/25/23 18:10 Est GFR ( Amer) 90.4 ml/min 10/25/23 18:10 Est GFR (Non-Af Amer) 78.0 ml/min 10/25/23 18:10 BUN/Creatinine Ratio 24.4 (10-20) H 10/25/23 18:10 Glucose 174 mg/dl (70-99(Fasting)) H 10/25/23 18:10 Lactate 1.6 mmol/L (0.4-2.0) 10/25/23 20:05 Calcium 9.9 mg/dl (8.6-10.3) 10/25/23 18:10 Magnesium 1.8 mg/dl (1.7-2.4) 10/25/23 18:10 Total Bilirubin 1.1 mg/dl (0.2-1.0) H 10/25/23 18:10 Direct Bilirubin 0.3 mg/dl (0-0.2) H 10/25/23 18:10 AST 60 U/L (13-39) H 10/25/23 18:10 ALT 69 U/L (7-52) H 10/25/23 18:10 Alkaline Phosphatase 121 U/L (34-104) H 10/25/23 18:10 Troponin I High Sens 13.3 pg/ml (0-20) 10/25/23 18:10 Total Protein 7.0 gm/dl (6.0-8.3) 10/25/23 18:10 Albumin 4.1 gm/dl (3.4-5.0) 10/25/23 18:10 Procalcitonin 5.00 ng/ml (0-0.5) H 10/25/23 18:10 Urine Color Dark Yellow 10/25/23 19:00 Urine Appearance Cloudy (Clear) A 10/25/23 19:00 Urine pH 5.0 (4.5-7.5) 10/25/23 19:00 Ur Specific [place] 1.025 (1.000-1.030) 10/25/23 19:00 Urine Protein 1+ (Negative) H 10/25/23 19:00 Urine Glucose (UA) Negative (Negative) 10/25/23 19:00 Urine Ketones Trace (Negative) H 10/25/23 19:00 Urine Blood 1+ (Negative) H 10/25/23 19:00 Urine Nitrite Negative (Negative) 10/25/23 19:00 Urine Bilirubin Negative (Negative) 10/25/23 19:00 Urine Urobilinogen Negative (Negative) 10/25/23 19:00 Ur Leukocyte Esterase 3+ (Negative) H 10/25/23 19:00 Urine WBC (Auto) >50 /hpf (0-5) H 10/25/23 19:00 Urine RBC (Auto) 6-10 /hpf (0-2) H 10/25/23 19:00 U Hyaline Cast (Auto) 3-5 /lpf (0-2) H 10/25/23 19:00 U Epithel Cells (Auto) 0-2 /hpf (0-2) 10/25/23 19:00 Urine Bacteria (Auto) None Seen (None Seen) 10/25/23 19:00 Urine Yeast Present (None Prsent) A 10/25/23 19:00 Impressions Chest X-Ray 10/25/23 18:05 SINGLE VIEW CHEST CLINICAL HISTORY: Sepsis. FINDINGS: An AP, portable, upright chest radiograph is compared to chest x-ray and chest CT dated 05/13/2023. The heart is enlarged noting atherosclerotic calcification and uncoiling of the thoracic aorta. The pulmonary vasculature is noncongested. Emphysema and chronic interstitial thickening is similar to previous. There is bibasilar scarring/atelectasis. No airspace consolidation or large pleural effusion is identified. No pneumothorax is seen. The skeletal structures are osteopenic. The bony thorax is grossly intact. IMPRESSION: Cardiomegaly and emphysema with no acute cardiopulmonary abnormality identified. ACT 112: Negative or not required by law. Electronically signed by: Javid Mendoza M.D. 10/25/2023 6:[address] 10/25/23 18:32 Exam(s): CT C SPINE EXAM: CT Cervical Spine Without Intravenous Contrast CLINICAL HISTORY: Reason for exam: fall, neck pain. TECHNIQUE: Axial computed tomography images of the cervical spine without intravenous contrast. CTDI is 24.94 mGy and DLP is 520.94 mGy-cm. Automated exposure control was utilized for the study. A dose lowering technique was utilized adhering to the principles of ALARA. COMPARISON: No relevant prior studies available. FINDINGS: The vertebral body heights are maintained. The craniocervical junction is intact. The atlanto-dens interval is maintained. The dens is intact. There is no spondylolisthesis. Multilevel cervical spondylosis and degenerative disc disease. Straightening of the cervical lordosis. The unenhanced neck soft tissues are grossly unremarkable. The visualized lung apices are grossly clear. IMPRESSION: No acute fracture or subluxation of the cervical spine. Electronically signed by: Breezy Castañeda MD 10/25/23 19:[address] 10/25/23 18:32 Exam(s): CT HEAD Without Contrast EXAM: CT Head Without Intravenous Contrast CLINICAL HISTORY: Reason for exam: fall, chi. TECHNIQUE: Axial computed tomography images of the head/brain without intravenous contrast. CTDI is 51.14 mGy and DLP is 899.15 mGy-cm. Automated exposure control was utilized for the study. A dose lowering technique was utilized adhering to the principles of ALARA. COMPARISON: No relevant prior studies available. FINDINGS: No acute intracranial hemorrhage. No midline shift or mass effect. The territorial aguiar-white matter differentiation is maintained throughout. Age-related cerebral volume loss. Periventricular and subcortical white matter hypoattenuation, consistent with chronic microangiopathy. The visualized orbits appear grossly unremarkable. The calvarium is intact. Opacified RIGHT maxillary sinus. IMPRESSION: No acute intracranial hemorrhage, midline shift, or mass effect. Electronically signed by: Breezy Castañeda MD 10/25/23 19:54 PM Knee X-Ray 10/25/23 18:32 RIGHT KNEE 2 VIEWS CLINICAL HISTORY: Fall. Right knee injury. FINDINGS: AP and crosstable lateral views of the right knee are compared to study dated 05/13/2023. The skeletal structures are osteopenic. No fracture is seen. There is moderate degenerative narrowing of the patellofemoral articulation. Mild narrowing is seen in the medial compartment. There is tiny marginal osteophytes, patellar enthesophyte, and degenerative beaking of the tibial spine. No joint effusion is seen. There is prepatellar soft tissue swelling. Atherosclerotic calcification is noted in the regional arteries. IMPRESSION: 1. Prepatellar soft tissue swelling with no fracture identified. 2. Osteopenia and degenerative change as above. Electronically signed by: Javid Mendoza M.D. 10/25/2023 7:29 PM Pelvis X-Ray 10/25/23 18:32 SINGLE VIEW PELVIS CLINICAL HISTORY: Fall. FINDINGS: An AP, portable, supine pelvic radiograph is compared to study dated 05/03/2022. The skeletal structures are osteopenic. There is no radiographic evidence of acute fracture involving the hips or bony pelvis. Degenerative sclerosis is noted in the sacroiliac joints. Mild osteoarthritic change and joint space narrowing is seen in the hips. The overlying soft tissues are within normal limits. Prostatic calcifications and phleboliths are seen in the pelvis. IMPRESSION: No acute bony abnormality is identified. Electronically signed by: Javid Mendoza M.D. 10/25/2023 7:32 PM ECG Additional Comments: ECG. Normal sinus rhythm with a rate of 77. Left axis deviation. Nonspecific intraventricular conduction block. No significant change was found. Code Status & VTE Plan VTE Prophylaxis Plan VTE Prophylaxis will be ordered: Yes
[2023-10-25] MEDS ORDERED: ACETAMINOPHEN 325 MG TAB PO PRN (22:56)
[2023-10-25] MEDS ORDERED: DICLOFENAC SOD 1% GEL 100 GM TUBE EXT PRN (22:56)
[2023-10-25] MEDS ORDERED: POLYETHYLENE (MIRALAX) 17 GM PACK PO PRN ×2 (22:56)
--- OUTSIDE RECORDS SUMMARY | 2023-10-26 02:05 | External Medical Summary | Summary of Care ---
Author Name Unknown Organization [facility] Address [address] [place] [address] Phone [phone] Care Team Providers Care Rollout Manager Name Role Phone Ollie Wagner PA-C Primary Care Provider [phone]- [phone] Reason for Visit * Reason Onset Date Comments Health Maintenance 09/16/2023 Encounter Details Date Type Department Care Team (Late st Contact Info) Description 09/16/2023 Telephone General Internal Medicine [facility] [address] [facility] [address] [place] [address] Ollie Wagner PA-C [address] [facility] [place] [address] Health Maintenance Allergies Active Allergy Reactions Criticality Noted Date Comments Hydrochlorothiazide 12/01/2018 Pancreatitis Meloxicam Rash 06/09/2018 Morphine 12/09/2020 convulsions Pantoprazole Diarrhea 08/20/2019 documented as of this encounter (statuses as of 09/16/2023) Medications Medication Sig Dispensed Refills Start Date End Date Status Cholecalciferol (VITAMIN D3) 2000 units CapsuleIndications: Vitamin D deficiency Take 1 Capsule by mouth in the morning. 90 Cap 1 04/13/2019 Active AmLactin 12 % External Lotion APPLY TOPICALLY TO BACK,LEGS,ARMS TWICE DAILY 0 10/21/2021 Active traMADol HCl 50 MG Oral Tablet (Ultram)Indications :DDD (degenerative disc disease), lumbar Take 1 Tablet by mouth every 8 hours as needed for Pain, Moderate. 90 Tablet 0 03/08/2022 Active Additional Information Patient not taking.Reported on 09/02/2023 Mupirocin 2 % External Ointment (Bactroban) APPLY A SMALL AMOUNT TO THE AFFECTED AREAS BY TOPICAL ROUTE 1 TIMES PER DAY and cover with bandaid 0 02/18/2022 Active Acetaminophen 500 MG Oral Tablet (Tylenol)Indication s:Lumbar degenerative disc disease Take 2 Tablets by mouth in the morning and 2 Tablets at noon and 2 Tablets before bedtime. Patient may self administer. 100 Tablet 0 09/30/2022 Active Tamsulosin HCl 0.4 MG Oral Capsule (Flomax)Indications :BPH with obstruction/lower urinary tract symptoms Take 1 Capsule by mouth every evening. Restart 10/19/2022 90 Capsule 0 10/19/2022 Active Additional Information Patient not taking.Reported on 09/02/2023 Pantoprazole Sodium 40 MG Oral Tablet Delayed Release (Protonix) TAKE 1 TABLET BY MOUTH DAILY FOR GASTRIC EROSIONS 90 Tablet 1 01/26/2023 Active documented as of this encounter (statuses as of 09/16/2023) Active Problems Problem Noted Date Diagnosed Date Centrilobular emphysema 02/25/2021 Pulmonary nodule 06/05/2019 Bladder stones 06/05/2019 Bilateral leg edema 08/17/2018 Postherpetic neuralgia 08/02/2017 DDD (degenerative disc disease), lumbar 08/02/19 18 Aortic valve sclerosis 04/01/2017 History of tobacco use 04/01/2017 Benign nodular prostatic hyp erplasia without lower urinary tract symptoms 01/25/2017 documented as of this encounter (statuses as of 09/16/2023) Resolved Problems Problem Noted Date Diagnosed Date Resolved Date Laceration of ear 07/27/2018 08/17/2018 Macrocytosis without anemia 04/01/2017 03/27/2018 HTN, goal below 150/90 01/25/201707/19 Inflamed seborrheic keratosis 10/17/2012 08/02/2017 Herpes zoster without complication 08/02/2017 Overview: rt cheek documented as of this encounter (statuses as of 09/16/2023) Immunizations Name Administration Dates Next Due COVID-19 mRNA, LNP-s, No Pre serve, 2-Dose Series (CEYX) 06/22/2021,09/19/2020,08/29/2020 DTP Vaccine 09/28/2017 Influenza, Whole Virus 04/10/2022 Pneumococcal Conjugate Vacc, 13 Valent (Prevnar) 03/27/2018 Pneumococcal Polysaccharide PPV23 (Pneumovax) 04/10/2019 Season Influenza, Quad, PF, Adjuvanted, 65+ Yrs, IM (FLUAD) 03/24/2020 Seasonal Influenza, PF, 6 M & above, IM , (FluLaval or Fluzone) 04/27/2018,04/01/2017 Seasonal Influenza, Quadriva lent Hd (Fluzone Hd) 04/03/2021 Seasonal Influenza, Quadriva lent, No Preserve, IM 06/15/2016,05/29/2015 Seasonal Influenza, Split, I IV3, With Preserve, Inj 04/18/2014,04/14/2012 Seasonal Influenza, Trivalen t, Adjuvanted, 65+ yrs 04/10/2019 TB Sarika Test 06/05/2022,05/27/2022 TDAP (age 10 and older)(Boostrix) 05/17/2017 documented as of this encounter Social History Tobacco Use Types Packs/Day Years Used Date Smoking Tobacco: Former Smokeless Tobacco: Never Alcohol Use Standard Drinks/Week Comments Not Currently 0 (1 standard drink = 0.6 oz pur e alcohol) 06/20/2020 quit PHQ-2 Answer Date Recorded PHQ Adult Total Score 0 12/09/2020 Hunger Vital Sign Answer Date Recorded Worried About Running Out of Food in the Last Ye ar Never true 06/05/2019 Ran Out of Food in the Last Year Never true 06/05/2019 Sex and Gender Information Value Date Recorded Sex Assigned at Male 11/07/2018 4:05 PM EDT Gender Identity Male 11/07/2018 4:05 PM EDT Sexual Orientation Straight 11/07/2018 4: 05 PM EDT Job Start Date Occupation Industry Not on file Not on file Not on file documented as of this encounter Miscellaneous Notes * Telephone Encounter - Andreia Abraham LPN - 09/16/2023 12:57 PM EST Care Gaps Comprehensive Care Outreach Last Office/Telemedicine Visit: 09/02/2023 (in office), Visit date not found (telemedicine) Next Office Visit: Visit date not found Hemoglobin AIC Results: Lab Results Component Value Date/Time HEMOGLOBIN A1C - DAVINAER 5.6 01/02/2009 09:47 AM BP Readings from Last 1 Encounters: 09/02/23 116/72 Reviewed Health Maintenance below: Health Maintenance Topic Date Due Alpha-1 Antitrypsin Never done Zoster Vaccines (1 of 2) Never done COLONOSCOPY-EVERY 2 YRS AGES 18-100 10/23/2020 *COPD SEVERITY VERIFIED BY PFT Never done Depression Screening 12/09/2021 Influenza Vaccine (FLU shot) (1) 03/11/2023 COVID-19 Vaccine ( - season) 2023 O2 ASSESSMENT COMPLETED IN PAST YEAR FOR COPD 09/02/2024 DTaP,Tdap,and Td Vaccines (3 - Td or Tdap) 09/29/2027 Pneumococcal Vaccine: 65+ Years Completed Hepatitis B Aged Out MENINGOCOCCAL (MENACTRA/MENVEO) Aged Out GARDASIL-HPV IMMUNIZATION SERIES Aged Out Care Gap Outreach Action Taken: Outreach not indicated documented in this encounter Plan of Treatment Scheduled Procedures Name Priority Associated Diagnoses Date/Ti me ESOPHAGOGASTRODUODENOSCOPY ( EGD), FLEXIBLE, TRANSORAL, DIAGNOSTIC Recall Duodenal stenosis History of colon polyps COLONOSCOPY FLEXIBLE PROXIMAL DIAGNOSTIC Recall Duodenal stenosis History of colon polyps Health Maintenance Due Date Last Done Comments Alpha-1 Antitrypsin 1953 Zoster Vaccines (1 of 2) 1986 COLONOSCOPY-EVERY 2 YRS AGES 18-100 10/23/2020 10/23/2018, 10/23/2018, 12/01/2017, Additional history exists *COPD SEVERITY VERIFIED BY PFT 02/28/2021 Depression Screening 12/09/2021 12/09/2020 COVID-19 Vaccine ( - season) 2023 06/22/2021, 09/19/2020, 08/29/2020 Influenza Vaccine (FLU shot) (#1) 2023 04/10/2022, 04/03/2021, 03/24/2020, Additional history exists O2 ASSESSMENT COMPLETED IN PAST YEAR FOR COPD 09/02/2024 09/02/2023 DTaP,Tdap,and Td Vaccines (3 - Td or Tdap) 09/29/2027 09/28/2017, 05/17/2017 Pneumococcal Vaccine: 65+ Years Completed 04/10/2019, 03/27/2018 GARDASIL-HPV IMMUNIZATION SERIES Aged Out No longer eligible based on patient's age to complete this topic Hepatitis B Aged Out No longer eligi ble based on patient's age to complete this topic MENINGOCOCCAL (MENACTRA/MENVEO) Aged Out No longer eligible based on patient's age to complete this topic documented as of this encounter Medical Devices Not on filedocumented as of this encounter Care Teams Rollout Manager Relationship Specialty Start Date End Date Ollie Wagner PA-C [address] [place], [place] [address] PCP - General Physician Shank Rander 10/30/21 documented as of this encounter
--- OUTSIDE RECORDS SUMMARY | 2023-10-26 02:06 | External Medical Summary | Summary of Care ---
Author Name Unknown Organization [facility] Address [address] [address] Phone [phone] Care Team Providers Care Residential Electrician Name Role Phone Ollie Wagner PA-C Primary Care Provider +1- [phone] Reason for Visit * Reason Onset Date Comments Advice 06/30/2023 Encounter Details Date Type Department Care Team (Late st Contact Info) Description 06/30/2023 Telephone General Internal Medicine [facility] [address] [facility] [place] [address] Ollie Wagner PA-C [address] [facility] [place] [address] Advice Allergies Active Allergy Reactions Criticality Noted Date Comments Hydrochlorothiazide 12/01/2018 Pancreatitis Meloxicam Rash 06/09/2018 Morphine 12/09/2020 convulsions Pantoprazole Diarrhea 08/20/2019 documented as of this encounter (statuses as of 07/21/2023) Medications Medication Sig Dispensed Refills Start Date End Date Status Cholecalciferol (VITAMIN D3) 2000 units CapsuleIndications:V itamin D deficiency Take 1 Capsule by mouth in the morning. 90 Cap 1 04/13/2019 Active AmLactin 12 % External Lotion APPLY TOPICALLY TO BACK,LEGS,ARMS TWICE DAILY 0 10/21/2021 Active traMADol HCl 50 MG Oral Tablet (Ultram)Indications: DDD (degenerative disc disease), lumbar Take 1 Tablet by mouth every 8 hours as needed for Pain, Moderate. 90 Tablet 0 03/08/2022 Active Mupirocin 2 % External Ointment (Bactroban) APPLY A SMALL AMOUNT TO THE AFFECTED AREAS BY TOPICAL ROUTE 1 TIMES PER DAY and cover with bandaid 0 02/18/2022 Active Acetaminophen 500 MG Oral Tablet (Tylenol)Indications :Lumbar degenerative disc disease Take 2 Tablets by mouth in the morning and 2 Tablets at noon and 2 Tablets before bedtime. Patient may self administer. 100 Tablet 0 09/30/2022 Active Tamsulosin HCl 0.4 MG Oral Capsule (Flomax)Indications: BPH with obstruction/lower urinary tract symptoms Take 1 Capsule by mouth every evening. Restart 10/19/2022 90 Capsule 0 10/19/2022 Active Pantoprazole Sodium 40 MG Oral Tablet Delayed Release (Protonix) TAKE 1 TABLET BY MOUTH DAILY FOR GASTRIC EROSIONS 90 Tablet 1 01/26/2023 Active documented as of this encounter (statuses as of 07/21/2023) Active Problems Problem Noted Date Diagnosed Date Centrilobular emphysema 02/25/2021 Pulmonary nodule 06/05/2019 Bladder stones 06/05/2019 Bilateral leg edema 08/17/2018 Postherpetic neuralgia 08/02/2017 DDD (degenerative disc disease), lumbar 08/02/19 18 Aortic valve sclerosis 04/01/2017 History of tobacco use 04/01/2017 Benign nodular prostatic hyp erplasia without lower urinary tract symptoms 01/25/2017 documented as of this encounter (statuses as of 07/21/2023) Resolved Problems Problem Noted Date Diagnosed Date Resolved Date Laceration of ear 07/27/2018 08/17/2018 Macrocytosis without anemia 04/01/2017 03/27/2018 HTN, goal below 150/90 01/25/201707/19 Inflamed seborrheic keratosis 10/17/2012 08/02/2017 Herpes zoster without complication 08/02/2017 Overview: rt cheek documented as of this encounter (statuses as of 07/21/2023) Immunizations Name Administration Dates Next Due COVID-19 mRNA, LNP-s, No Pre serve, 2-Dose Series (Pfizer) 06/22/2021,09/19/2020,08/29/2020 DTP Vaccine 09/28/2017 Pneumococcal Conjugate Vacc, 13 Valent (Prevnar) 03/27/2018 [...] Influenza, Trivalen t, Adjuvanted, 65+ yrs 04/10/2019 TDAP (age 10 and older)(Boostrix) 05/17/2017 documented as of this encounter Social History Tobacco Use Types Packs/Day Years Used Date Smoking Tobacco: Former Smokeless Tobacco: Never Alcohol Use Standard Drinks/Week Comments Yes 0 (1 standard drink = 0.6 oz [...] encounter Miscellaneous Notes * Telephone Encounter - Erica Strauss LPN - 07/21/2023 4:25 PM EST MACRINA filled out * Telephone Encounter - Olivia Mckeon OSA - 06/30/2023 3:57 PM EST Daughter has called in looking for forms to be filled out by father did inform of the MACRINA she states she will come to the clinic to picker / packer form & get filled out by father. documented in this encounter Plan of Treatment [...] Depression Screening 12/09/2021 12/09/2020 COVID-19 Vaccine ( season) 2023 06/22/2021, 09/19/2020, 08/29/2020 Influenza Vaccine (FLU shot) (#1) 2023 04/03/2021, 03/24/2020, 04/10/2019, Additional history exists O2 ASSESSMENT COMPLETED IN PAST YEAR FOR COPD 11/25/2023 11/24/2022 DTaP,Tdap,and Td Vaccines (3 - Td or [...] filedocumented as of this encounter Care Teams Residential Electrician Relationship Specialty Start Date End Date Ollie Wagner PA-C [address] [place] [address] PCP - General Physician Product Support Rep 10/30/21 documented as of this encounter
--- OUTSIDE RECORDS SUMMARY | 2023-10-26 02:06 | External Medical Summary | Summary of Care ---
Author Name Unknown Organization [facility] Address [address] [place] [address] Phone [phone] Care Team Providers Care Window Repairer Name Role Phone Ollie Wagner PA-C Primary Care Provider +1- [phone] Encounter Details Date Type Department Care Team (Late st Contact Info) Description 06/21/2023 Clinical Social Work Aide Care Coordination and Integration [address] [place], [place] [id number] Yessy Dwyer, RN [address] [place] [address] Allergies Active Allergy Reactions Criticality Noted Date Comments Hydrochlorothiazide 12/01/2018 Pancreatitis Meloxicam Rash 06/09/2018 Morphine 12/09/2020 convulsions Pantoprazole Diarrhea 08/20/2019 documented as of this encounter (statuses as of 06/21/2023) Medications Medication Sig Dispensed Refills Start Date [...] as of this encounter (statuses as of 06/21/2023) Active Problems Problem Noted Date Diagnosed Date Centrilobular emphysema 02/25/2021 Pulmonary nodule 06/05/2019 Bladder stones 06/05/2019 Bilateral leg edema 08/17/2018 Postherpetic neuralgia 08/02/2017 DDD (degenerative disc disease), lumbar 08/02/19 18 Aortic valve sclerosis 04/01/2017 History of tobacco use 04/01/2017 Benign nodular prostatic hyp erplasia without lower urinary tract symptoms 01/25/2017 documented as of this encounter (statuses as of 06/21/2023) Resolved Problems Problem Noted Date Diagnosed Date Resolved Date Laceration of ear 07/27/2018 08/17/2018 Macrocytosis without anemia 04/01/2017 03/27/2018 HTN, goal below 150/90 01/25/201707/19 Inflamed seborrheic keratosis 10/17/2012 08/02/2017 Herpes zoster without complication 08/02/2017 Overview: rt cheek documented as of this encounter (statuses as of 06/21/2023) Immunizations Name Administration Dates Next Due COVID-19 mRNA, LNP-s, No Pre serve, 2-Dose Series (Fair value) 06/22/2021,09/19/2020,08/29/2020 DTP Vaccine 09/28/2017 Pneumococcal Conjugate Vacc, [...] on file documented as of this encounter Progress Notes * Yessy Dwyer RN - 06/21/2023 4:18 PM EST Received t/c from pt's daughter with request for form possibly filled out by Ollie Wagner PA-C and sent to [facility] sometime Mar-Apr. Per daughter this is needed for press tender long goods care insurance claim. Cm notes that there is scan MACRINA request in pt's chart related to this. CM notes no such document in pt's chart at this time. Daughter could not remember if Ollie had filled out this form or if it was done by the physician at the assisted living facility at the time ([facility]). CM placed t/c to [facility]. VMM left with request for their medical records department to f/u with pt's daughter. No need for additional f/u at this time as pt is being medically managed by [facility] physician at [facility]. documented in this encounter Plan of Treatment [...] 02/28/2021 Depression Screening 12/09/2021 12/09/2020 COVID-19 Vaccine (4 - 2022- season) 2023 06/22/2021, 09/19/2020, 08/29/2020 Influenza Vaccine [...] filedocumented as of this encounter Care Teams Window Repairer Relationship Specialty Start Date End Date Ollie Wagner PA-C [address] [place] [address] PCP - General Physician Test Desk Operator 10/30/21 documented as of this encounter
--- OUTSIDE RECORDS SUMMARY | 2023-10-26 02:06 | External Medical Summary | Summary of Care ---
Author Name Unknown Organization [facility] Address [address] [facility] [address] [address] Phone [phone] Care Team Providers Care Senior Hr Business Partner Name Role Phone Ollie Wagner PA-C Primary Care Provider [phone]- [phone] Reason for Visit * Reason Comments Acute Patient c/o nodule o n head. No pain reported but feels uncomfortable. Encounter Details Date Type Department Care Team (Latest Contact Info) Description 09/02/2023 12:40 PM EST Office Visit General Internal Medicine [facility] [address] [facility] [place] [address] Светлана Diaz MD [address] [facility] [place] [address] Nonintractable headache, unspecified chronicity pattern, unspecified headache type*; Postherpetic neuralgia; Benign nodular prostatic hyperplasia without lower urinary tract symptoms; DDD (degenerative disc disease), lumbar; History of tobacco use Allergies Active Allergy Reactions Criticality Noted Date Comments Hydrochlorothiazide 12/01/2018 Pancreatitis Meloxicam Rash 06/09/2018 Morphine 12/09/2020 convulsions Pantoprazole Diarrhea 08/20/2019 documented as of this encounter (statuses as of 09/02/2023) Medications Medication Sig Dispensed Refills Start Date [...] as of this encounter (statuses as of 09/02/2023) Active Problems Problem Noted Date Diagnosed Date Centrilobular emphysema 02/25/2021 Pulmonary nodule 06/05/2019 Bladder stones 06/05/2019 Bilateral leg edema 08/17/2018 Postherpetic neuralgia 08/02/2017 DDD (degenerative disc disease), lumbar 08/02/19 18 Aortic valve sclerosis 04/01/2017 History of tobacco use 04/01/2017 Benign nodular prostatic hyp erplasia without lower urinary tract symptoms 01/25/2017 documented as of this encounter (statuses as of 09/02/2023) Resolved Problems Problem Noted Date Diagnosed Date Resolved Date Laceration of ear 07/27/2018 08/17/2018 Macrocytosis without anemia 04/01/2017 03/27/2018 HTN, goal below 150/90 01/25/201707/19 Inflamed seborrheic keratosis 10/17/2012 08/02/2017 Herpes zoster without complication 08/02/2017 Overview: rt cheek documented as of this encounter (statuses as of 09/02/2023) Immunizations Name Administration Dates Next Due COVID-19 mRNA, LNP-s, No Pre serve, 2-Dose Series ([employer]) 06/22/2021,09/19/2020,08/29/2020 DTP Vaccine 09/28/2017 Influenza, Whole Virus [...] on file documented as of this encounter Last Filed Vital Signs Vital Sign Reading Time Taken Comments Blood Pressure 116/72 09/02/2023 1:10 PM EST Pulse 56 09/02/2023 1:10 PM EST Temperature 36.6 C (97.9 F) 09/02/2023 1:10 PM ES T Respiratory Rate - - Oxygen Saturation 94% 09/02/2023 1:10 PM EST Inhaled Oxygen Concentration - - Weight - - Height - - Body Mass Index - - documented in this encounter Progress Notes * Светлана Diaz MD - 09/02/2023 1:16 PM EST Images from the original note were not included. History of Present Illness Kole Melo is a 88 year old male that presents for Acute (Patient c/o nodule on head. No pain reported but feels uncomfortable. ) 88 year old YOmale with PMH as listed below presents here for evaluation of nodule om head . Duration of illness: 10 days Symptoms present : Has been having intermittent pain in the right temporal which is not constant but it comes and goes and lasts for about 1-3 seconds, very mild and not sharp shooting pain. Patienthas history of shingles with post herpetic neuralgia on the right cheek and around the eye area in past. Patient thought that he 4 cm nodule in the right brain and wanted to have a recheck imaging don e. We looked at his MRI brain and CT head and PET scan from [id number] which did not show any mass or lesion in his brain but moderate to significant microvascular disease and atrophy. He had nodule in his right side of the lung which was thought to be benign in last PET scan in 2020 Symptoms not present: Nausea and vomiting, severe headache, change in vision, any new neurological symptoms like numbness or tingling in extremities, face, weakness of extremities more than usual, choking or trouble swallowing. No fever chills, no sinus congestion or drainage Have same similar thing in past : Herpetic neuralgia the seems that the face but otherwise no chronic headache Since symptoms started things getting : Same Used anything for this illness: none Other concerns or issues present : None Physical Exam Vitals: 09/02/23 1310 Temp: 36.6 C (97.9 F) Pulse: 56 SpO2: 94% BP: 116/72 Physical Exam Constitutional: General: He is not in acute distress. Appearance: He is normal weight. HENT: Head: Comments: No tenderness in temporal area right now nor at TMJ Cardiovascular: Rate and Rhythm: Normal rate and regular rhythm. Heart sounds: No murmur heard. Neurological: General: No focal deficit present. Mental Status: He is alert. Mental status is at baseline. Cranial Nerves: No cranial nerve deficit. Sensory: No sensory deficit. Motor: No weakness. I have reviewed the following results: Assessment and Plan Nonintractable headache, unspecified chronicity pattern, unspecified headache type Likely either facial nerve Neurology or recurrence of post herpetic neuralgia Suggest to follow up clinically as no other flags Postherpetic neuralgia Benign nodular prostatic hyperplasia without lower urinary tract symptoms DDD (degenerative disc disease), lumbar History of tobacco use Wrap-Up Time: I spent a total of 20-29 minutes (exact time 28 mins) on the date of service in preparation, delivery, and documentation of the care provided to Kole Melo excluding any time spent in the performance of separately billed services. documented in this encounter Nursing Notes * Christiana Wilson MED ASSIST - 09/02/2023 1:10 PM EST Chief Complaint Patient presents with Acute Patient c/o nodule on head. No pain reported but feels uncomfortable. documented in this encounter Plan of Treatment [...] Not on filedocumented as of this encounter Visit Diagnoses Diagnosis Nonintractable headache, unspecified chronicity pattern, unspecified headache type- Primary Postherpetic neuralgia Herpes zoster with other nervous system complications Benign nodular prostatic hyperplasia without lower urinary tract symptoms DDD (degenerative disc disease), lumbar Degeneration of lumbar or lumbosacral intervertebral disc History of tobacco use Personal history of tobacco use, presenting hazards to health documented in this encounter Care Teams Senior Hr Business Partner Relationship Specialty Start Date End Date Ollie Wagner PA-C [address] [place] [address] PCP - General Physician Auricular Acupuncturist 10/30/21 documented as of this encounter
--- OUTSIDE RECORDS SUMMARY | 2023-10-26 02:06 | External Medical Summary | Summary of Care ---
Author Name Unknown Organization [facility] Address [address] [facility] [address] Phone [phone] Care Team Providers Care Hop Farmer Name Role Phone Ollie Wagner PA-C Primary Care Provider +1- [phone] Reason for Visit * Reason Onset Date Comments Medical Records Request 07/15/2023 Encounter Details Date Type Department Care Team (Late st Contact Info) Description 07/15/2023 Telephone General Internal Medicine [facility] [address] [facility] [place] [address] Ollie Wagner PA-C [facility] [place] [address] Medical Records Request Allergies Active Allergy Reactions Criticality Noted Date Comments Hydrochlorothiazide 12/01/2018 Pancreatitis Meloxicam Rash 06/09/2018 Morphine 12/09/2020 convulsions Pantoprazole Diarrhea 08/20/2019 documented as of this encounter (statuses as of 07/15/2023) Medications Medication Sig Dispensed Refills Start Date [...] as of this encounter (statuses as of 07/15/2023) Active Problems Problem Noted Date Diagnosed Date Centrilobular emphysema 02/25/2021 Pulmonary nodule 06/05/2019 Bladder stones 06/05/2019 Bilateral leg edema 08/17/2018 Postherpetic neuralgia 08/02/2017 DDD (degenerative disc disease), lumbar 08/02/19 18 Aortic valve sclerosis 04/01/2017 History of tobacco use 04/01/2017 Benign nodular prostatic hyp erplasia without lower urinary tract symptoms 01/25/2017 documented as of this encounter (statuses as of 07/15/2023) Resolved Problems Problem Noted Date Diagnosed Date Resolved Date Laceration of ear 07/27/2018 08/17/2018 Macrocytosis without anemia 04/01/2017 03/27/2018 HTN, goal below 150/90 01/25/201707/19 Inflamed seborrheic keratosis 10/17/2012 08/02/2017 Herpes zoster without complication 08/02/2017 Overview: rt cheek documented as of this encounter (statuses as of 07/15/2023) Immunizations Name Administration Dates Next Due COVID-19 [...] encounter Miscellaneous Notes * Telephone Encounter - Yossi Macdonald OSA - 07/15/2023 1:26 PM EST Medical Records Release to [facility] (ReleasePoint) Medical Records Release forwarded to / documented in this encounter Plan of Treatment [...] filedocumented as of this encounter Care Teams Hop Farmer Relationship Specialty Start Date End Date Ollie Wagner PA-C [address] [place] [address] PCP - General Physician Television Servicer 10/30/21 documented as of this encounter
--- OUTSIDE RECORDS SUMMARY | 2023-10-26 02:07 | External Medical Summary | Summary of Care ---
Author Name Unknown Organization [facility] Address [address] [place] [address] Phone [phone] Care Team Providers Care Facility Maintenance Supervisor Name Role Phone Ollie Wagner PA-C Primary Care Provider [phone] Reason for Referral * Evaluate & Treat - Unlimited Visits (Within 3 days (urgent)) - Authorized Specialty Diagnoses / Procedures Referred By Contfartun t Referred To Contact Email Campaign Manager Diagnoses Need for case management follow-up Ollie Wagner PA-C [address] [facility] [place] [id number] Referral ID Status Reason Start Date Expiration Date Visits Requested Visits Authorized [id number] Authorized Specialty Services Required 05/19/2023 1 1 Question Answer Referral Priority Within 3 days (urgent) Where should this appointment be scheduled? ising Program Type Case Management Complex Case Management [facility] Health Device(s) Requested Other (See Comment) Alarm Settings Standard per protocol Comments Primary Email Campaign Manager: Yessy Kasper Is the patient already enrolled with another [facility] device/service? (If no, will need to "push the button") No Does the patient have a physical address? (If no, provide physical address if requesting device) No Requested Devices/IVR: IVR Post-Discharge Start date: 05/30 How many weeks: 3 If want time other than 9am, note time here: Encounter Details Date Type Department Care Team (Late st Contact Info) Description 05/19/2023 Email Campaign ManagerA And P Mechanic Internal Medicine Kyra Hilliard [place] [address] [facility] [place] [id number] Yessy Dwyer, RN [address] [place] [address] Need for case management follow-up* Allergies Active Allergy Reactions Criticality Noted Date Comments Hydrochlorothiazide 12/01/2018 Pancreatitis Meloxicam Rash 06/09/2018 Morphine 12/09/2020 convulsions Pantoprazole Diarrhea 08/20/2019 documented as of this encounter (statuses as of 05/19/2023) Medications Medication Sig Dispensed Refills Start Date [...] as of this encounter (statuses as of 05/19/2023) Active Problems Problem Noted Date Diagnosed Date Centrilobular emphysema 02/25/2021 Pulmonary nodule 06/05/2019 Bladder stones 06/05/2019 Bilateral leg edema 08/17/2018 Postherpetic neuralgia 08/02/2017 DDD (degenerative disc disease), lumbar 08/02/19 18 Aortic valve sclerosis 04/01/2017 History of tobacco use 04/01/2017 Benign nodular prostatic hyp erplasia without lower urinary tract symptoms 01/25/2017 documented as of this encounter (statuses as of 05/19/2023) Resolved Problems Problem Noted Date Diagnosed Date Resolved Date Laceration of ear 07/27/2018 08/17/2018 Macrocytosis without anemia 04/01/2017 03/27/2018 HTN, goal below 150/90 01/25/201707/19 Inflamed seborrheic keratosis 10/17/2012 08/02/2017 Herpes zoster without complication 08/02/2017 Overview: rt cheek documented as of this encounter (statuses as of 05/19/2023) Immunizations Name Administration Dates Next Due COVID-19 mRNA, LNP-s, No Pre serve, 2-Dose Series ([employer]) 06/22/2021,09/19/2020,08/29/2020 DTP Vaccine 09/28/2017 Pneumococcal Conjugate Vacc, 13 Valent (Prevnar) 03/27/2018 Pneumococcal Polysaccharide PPV23 (Pneumovax) 04/10/2019 SEASONAL INFLUENZA, PF, 6 M & Above, IM , (FLULAVAL or FLUZONE) 04/27/2018,04/01/2017 Season Influenza, Quad, PF, Adjuvanted, 65+ Yrs, IM (FLUAD) 03/24/2020 Seasonal Influenza, Quadriva lent Hd (Fluzone Hd) [...] Progress Notes * Yessy Dwyer RN - 05/19/2023 11:43 AM EST Email Campaign Manager Progress Note: Date: 05/19/23 Assigned Patient Tier: 2 Connected with patient via assisted living facility. Verified patient name/. Advised patient that call is being recorded for quality and training purposes. Assessment: Pt. noted the following: Call to Waldemar Fitzpatrick for JAYSON follow up. Pt was admitted to [facility] afterfall with scalp laceration and treated for UTI. Pt attributed fall to tramadol. Pt is scheduled forhospital d/c follow up with PCP on 05/26 with Ollie Wagner. Will need suture removal and is to have would care- being done by [facility] staff. Did you receive an alert for an annual wellness visit? No Is this call for a hospital, care home or rehab facility discharge to home? Yes [facility] Medication Reconciliation: Medication Reconciliation completed: yes Review of Current goals: Discussed the following patient-centered CM goals with the patient during this discussion: -SAFETY: Prevent falls or injuries -Status: On Track has DME. -Prevention: Prevent admission/readmission -Status: On Track has hospital d/c follow up scheduled. COPD Patient: No CHF Patient: NO CM Plan: Reviewed 3 Red Flags with patient. Advised to call CM with any of the following: Red Flag 1: falls with injury, Red Flag 2: fevers or chills, or Red Flag 3: weakness or dizziness Remote Patient Monitoring: At this time, RPM not offered/considered for patient due to NA. Plan for Future Contacts: Plan to follow up within 1 week to check progress on the following goals/needs JAYSON. Planned contacts from the following parties will occur this week: PCP office visit and Assisted living staff as additional contacts per workflow. Advancement/Closure Plan: Keep patient at current Tier with reassessment per workflow. Patient provided CM contact information and encouraged to call with any changes in condition. SNP Member? No PCP Notified of enrollment in CM/HM program: Yes Is Provider in agreement with POC? Yes Yessy Dwyer RN Outpatient Case Management documented in this encounter Plan of Treatment Scheduled Procedures Name Priority Associated Diagnoses Date/Ti me ESOPHAGOGASTRODUODENOSCOPY ( EGD), FLEXIBLE, TRANSORAL, DIAGNOSTIC Recall Duodenal stenosis History of colon polyps COLONOSCOPY FLEXIBLE PROXIMAL DIAGNOSTIC Recall Duodenal stenosis History of colon polyps Scheduled Referrals Name Type Priority Associated Diagnoses Orde r Schedule REMOTE PATIENT MONITORING REFERRAL Referral Within 3 days (urgent) Need for case management follow-up Ordered: 05/19/2023 Health Maintenance Due Date Last Done Comments Alpha-1 Antitrypsin 1953 Zoster Vaccines (1 of 2) 1986 COLONOSCOPY-EVERY 2 YRS AGES 18-100 10/23/2020 10/23/2018, 10/23/2018, 12/01/2017, Additional history exists *COPD SEVERITY VERIFIED BY PFT 02/28/2021 Depression Screening 12/09/2021 12/09/2020 COVID-19 Vaccine (2022- season) 2023 06/22/2021, 09/19/2020, 08/29/2020 Influenza Vaccine [...] as of this encounter Visit Diagnoses Diagnosis Need for case management follow-up- Primary documented in this encounter Care Teams Facility Maintenance Supervisor Relationship Specialty Start Date End Date Ollie Wagner PA-C [address] [facility] [place] [id number] PCP - General Physician Bolt Sorter 10/30/21 documented as of this encounter
[2023-10-26 06:31] LABS: Basophils # (auto) 0.04 K/uL (0.00-0.20); Basophils % (auto) 0.4 %; Eosinophils # (auto) 0.06 K/uL (0.00-0.50); Eosinophils % (auto) 0.5 %; Hematocrit (blood only) 35.6 % (42.0-52.0); Hemoglobin 12.1 g/dl (14.0-18.0); Immature Granulocytes # (auto) 0.05 K/uL (0.01-0.20); Immature Granulocytes % (auto) 0.5 %; Lymphocytes # (auto) 0.66 K/uL (1.20-3.40); Mean Corpuscular Volume 88.1 fL (80.0-100.0); Mean Platelet Volume 10.7 fL (9.4-12.4); Monocytes # (auto) 0.79 K/uL (0.11-0.59); Monocytes % (auto) 7.2 %; Neutrophils # (auto) 9.35 K/uL (1.40-6.50); Neutrophils % (auto) 85.4 %; Platelet Count 155 K/uL (130-400); RDW Coefficient of Variation 14.6 % (11.5-14.5); RDW Standard Deviation 46.4 fL (36.4-46.3); Red Blood Count 4.04 M/uL (4.70-6.10); White Blood Count 10.95 K/ul (4.8-10.8)
[2023-10-26 06:40] LABS: BUN Creatinine Ratio 23.9 (10-20); Calcium 9.2 mg/dl (8.6-10.3); Creatinine Clr Calc Pharmacy 77.7 ml/min; Est GFR (African American) 100.1 ml/min; Est GFR (Non-African American) 86.4 ml/min; Magnesium 1.8 mg/dl (1.7-2.4); Potassium 3.6 mmol/L (3.5-5.1)
[2023-10-26] MEDS: CHOLECALCIFEROL 25 MCG (1000 UNITS) TAB PO SCH (08:20)
[2023-10-26] MEDS: ACETAMINOPHEN 500 MG TAB PO SCH (08:20)
[2023-10-26] MEDS: PANTOprazole 40 MG TAB PO SCH (08:21)
[2023-10-26] MEDS: CEFEPIME 2,000 MG in SYRINGE 0 ML IV SCH (08:26)
[2023-10-26] MEDS: HEPARIN SOD 5,000 UNIT/0.5 ML VIAL SQ SCH (08:32)
[2023-10-26] MEDS: HYDROCORTISONE 1% CRM 30 GM TUBE EXT SCH (09:32)
[2023-10-26] MEDS: ADVANCED PROBIOTIC 625 MG CAPSULE PO SCH (10:33)
--- NOTE | 2023-10-26 10:45 | Electrocardiogram Report ---
Test Reason : Blood Pressure : / mmHG Vent. Rate : 067 BPM Atrial Rate : 067 BPM P-R Int : 176 ms QRS Dur : 134 ms QT Int : 416 ms P-R-T Axes : 034 -31 004 degrees QTc Int : 439 ms Normal sinus rhythm Left axis deviation Right bundle branch block Abnormal ECG When compared with ECG of 13-MAY-2023 10:02, No significant change was found Confirmed by Jonathan Wilcox ([id number]) on 10/26/2023 10:45:04 AM Referred By: REFERRED SELF Confirmed By:Javed Wilcox
--- NOTE | 2023-10-26 15:11 | Hospitalist Progress Note ---
Date of Service October 26, 2023 Assessment & Plan (1) Fall: Plan: 88-year-old male with PMH of emphysema, pulmonary nodule, aortic valve sclerosis, BPH, bladder stones, degenerative disc disease, bilateral leg edema, postherpetic neuralgia, past tobacco abuse, currently living at [facility] with his /ambulates with a walker came into the ED 10/24 because of fall and found to have UTI. Patient stated that he was going to bathroom and at the bathroom door he slipped and fell backwards. No loss of consciousness. He is being managed for the following: Mechanical fall: Came in with mechanical fall, CXR/C-spine CT/head CT/knee x- ray/pelvic x-ray with no acute fracture. PT/OT. UTI: Could be contributing to his fall. Continue with cefepime 10/24. Follow urine culture and sensitivity, de-escalate appropriately. History of pulmonary nodule: Continue to follow-up with PCP for long-term monitoring. Other chronic medical conditions: Continue with/resume home meds as and when able BPH: Continue home Flomax GERD: Continue home Protonix DVT prophylaxis: Heparin subcu Disposition: Medical floor, PT/OT, CM to assist with DC planning Full code Admission and Anticipated Discharge Date Admission Date: October 25, 2023 Subjective Patient was seen and examined at bedside. Patient was sitting up in bed, NAD, resting comfortably. Per RN, patient is eating okay and moving bowels okay, no new acute event overnight. Patient denies any headache or dizziness or chest pain or palpitation or abdominal pain. Physical Exam Physical Exam: GENERAL: Alert and oriented x3. NAD, on RA. Elderly gentleman. HEENT: No pallor, no icterus. Pupils equal, round and reactive to light. Oral mucosa moist. NECK: No JVD, no neck masses. HEART: S1 and S2 heard. Regular rate and rhythm. No murmur, no gallop. RESPIRATORY SYSTEM: Normal AP diameter. No accessory muscle use. No wheezing, no crackles. ABDOMEN: Soft, bowel sounds present, nontender, no distention. CENTRAL NERVOUS SYSTEM: No facial droop. Speech is clear. Obeys simple commands. Moves extremities. EXTREMITIES: No edema, no erythema seen. Results & Data Results & Data Vital Signs (Past 12 Hours) Vital Signs Temp Pulse Resp BP Pulse Ox O2 Del Method 04/17/24 08:03 36.6 C 63 18 137/70 93 Room Air
[2023-10-26] MEDS: TAMSULOSIN HCL 0.4 MG CAP PO SCH (20:46)
[2023-10-27 06:54] LABS: Hematocrit (blood only) 38.4 % (42.0-52.0); Hemoglobin 12.6 g/dl (14.0-18.0); Mean Corpuscular Hemoglobin 29.7 pg (25.0-34.0); Mean Corpuscular Hgb Conc 32.8 g/dL (32.0-36.0); Mean Corpuscular Volume 90.6 fL (80.0-100.0); Mean Platelet Volume 10.2 fL (9.4-12.4); Platelet Count 154 K/uL (130-400); RDW Coefficient of Variation 14.7 % (11.5-14.5); RDW Standard Deviation 48.4 fL (36.4-46.3); Red Blood Count 4.24 M/uL (4.70-6.10); White Blood Count 7.26 K/ul (4.8-10.8)
[2023-10-27 07:16] LABS: BUN Creatinine Ratio 18.5 (10-20); Calcium 9.1 mg/dl (8.6-10.3); Creatinine Clr Calc Pharmacy 80.1 ml/min; Est GFR (African American) 101.4 ml/min; Est GFR (Non-African American) 87.5 ml/min; Magnesium 1.9 mg/dl (1.7-2.4); Phosphorus 2.1 mg/dl (2.5-4.9); Potassium 3.5 mmol/L (3.5-5.1)
[2023-10-27] MEDS: POTASSIUM CHLORIDE CRTAB 20 MEQ TABCR PO STA (09:40)
[2023-10-27] MEDS: POT PHOSPHATE MONOBASIC W/ SOD TAB PO SCH (09:41)
--- NOTE | 2023-10-27 13:12 | Discharge Summary ---
Date of Service October 27, 2023 Admission HPI Per Admitting Provider 88-year-old male with past medical history significant for emphysema, pulmonary nodule, aortic valve sclerosis, BPH, bladder stones, degenerative disc disease, bilateral leg edema, postherpetic neuralgia, history of tobacco abuse, [facility] and ambulates with a walker comes because of fall and found to have UTI. Patient states was going to bathroom and at the bathroom door slipped and fell backwards. Hit his head. No loss of consciousness. Was able to get up with assistance. Currently alert and oriented and able to give his history. Denies any headache. No dizziness. No runny nose or sore throat. No cough. No difficulty swallowing. Appetite is okay. Denies any chest pain or shortness of breath. No nausea. No abdominal pain. Normal bowel and bladder movements. Seems at [facility] patient told that he is having difficulty micturating but currently states he micturated twice last night. Currently hemodynamically stable. Past medical history. As mentioned above Past surgical history. Appendectomy ,right carpal tunnel surgery, colonoscopy and EGD. ERCP. Injection lumbosacral spine. Laparoscopic cholecystectomy. Laparoscopic right inguinal hernia. Tonsillectomy. Cataract surgery. Remove of lumbar spine lamina. Social history. . No smoking. Currently no alcohol use. No drug use. Family history. Brother had brain cancer. Mother had liver cancer. Admission Exam Per Admitting Provider General- Not in distress Head- atraumatic Eyes- PERRL. ENT- oropharynx clear Neck- supple, no JVD. Lungs- clear to auscultation no wheezing or crackles. Heart- regular rhythm; no murmur, no gallop. Abdomen- normal bowel sounds, soft, nontender, no distension. Extremities- mild pretibial edema present, no erythema seen. Neuro- alert, oriented x 3; PERRL, no facial palsy; no dysarthria; motor 5/5 bilaterally; Principal Diagnosis mechanical fall Concern for UTI Discharge Exam GENERAL: Alert and oriented x3. NAD, on RA. Elderly gentleman. HEENT: No pallor, no icterus. Pupils equal, round and reactive to light. Oral mucosa moist. NECK: No JVD, no neck masses. HEART: S1 and S2 heard. Regular rate and rhythm. No murmur, no gallop. RESPIRATORY SYSTEM: Normal AP diameter. No accessory muscle use. No wheezing, no crackles. ABDOMEN: Soft, bowel sounds present, nontender, no distention. CENTRAL NERVOUS SYSTEM: No facial droop. Speech is clear. Obeys simple commands. Moves extremities. EXTREMITIES: No edema, no erythema seen. Discharge Data Allergies Allergy/AdvReac Type Severity Reaction Status Date / Time meloxicam Allergy Mild RASH Verified 10/25/23 18:54 hydrochlorothiazide AdvReac Severe PANCREATITI Verified 10/25/23 18:54 S morphine AdvReac Severe convulsions Verified 10/25/23 18:54 gabapentin AdvReac Intermediate Fainting Verified 10/25/23 18:54 Consultations 10/25/23 21:07 ED Decision to Admit Stat Ordered Studies 10/25/23 18:32 CT cervical spine wo con Stat CT head/brain wo con Stat Hospital Course (1) Fall: 88-year-old male with PMH of emphysema, pulmonary nodule, aortic valve sclerosis, BPH, bladder stones, degenerative disc disease, bilateral leg edema, postherpetic neuralgia, past tobacco abuse, currently living at [facility] with his /ambulates with a walker came into the ED 10/24 because of fall and found to have UTI. Patient stated that he was going to bathroom and at the bathroom door he slipped and fell backwards. No loss of consciousness. He was managed for the following: Mechanical fall: Came in with mechanical fall, CXR/C-spine CT/head CT/knee x- ray/pelvic x-ray with no acute fracture. PT/OT. UTI: Could be contributing to his fall. Continue with cefepime 10/24. Urine Cx likely colonization. Will complete UTI Rx w/ PO atb on dc. History of pulmonary nodule: Continue to follow-up with PCP for long-term monitoring. Other chronic medical conditions: Continue with/resume home meds as and when able BPH: Continue home Flomax GERD: Continue home Protonix DVT prophylaxis: Heparin subcu Disposition: Medical floor, PT/OT, CM to assist with DC planning Full code Patient's son was updated over the phone. Patient is being discharged with following instruction at the point of discharge: Follow-up with your primary care physician within a week time and likely you will need labs CBC/CMP/magnesium/phosphorus. You were treated with antibiotic for concern of UTI, complete the course. Continue to follow-up with your PCP office for long-term monitoring for your history of pulmonary nodule. Take your medications as prescribed. Please make sure that you are able to get your medications today by calling your pharmacy before you leave the hospital so that your treatment continuity is not broken. Home Health Attestation I certify that this patient is under my care and that I, or a physicians occupational therapist assistant working with me, had a face to-face encounter that meets the home health [id number] encounter requirements with this patient. The encounter with the patient was in whole, or in part, for the following medical condition, which is the primary reason for home health care (list medical condition): I certify that, based on my findings, the following services are medically necessary home health services: My clinical findings support the need for the above services because: Further, I certify that my clinical findings support that this patient is homebound (i.e. absences from home require considerable and taxing effort and are for medical reasons or taoist services or infrequently or of short duration when for other reasons) because: Certification for Home Health Services: Based on the above findings, I certify that this patient is confined to the home and needs intermittent detention care, physical therapy and/or speech therapy or continues to need occupational therapy. The patient is under my care, and I have initiated the establishment of the plan of care. This patient will be followed by a physician who will periodically review the plan of care. Total Time Total Time Spent Total Time Spent (In Minutes): 45 Discharge Plan Discharge Items Patient Disposition: Personal Residential Reason For Visit: FALL, UTI Discharge Diagnosis: mechanical fall Concern for UTI Activity: Resume your previous activity Non-emergency contact: Primary Care Provider Call non-emergency contact if: you have any medication questions, your symptoms worsen and your temperature is above 101.5 Follow-up/Referrals: Светлана Diaz MD [Outside Practitioners] - (Date & Time 11/02/2023 10:00 AM Provider Светлана Diaz MD Department General Internal Medicine [facility] ) Wally Denson DO [Primary Care Provider] - Diet: Heart Healthy and Low Sodium (2gm) Addtl Attending Provider Instructions: Follow-up with your primary care physician within a week time and likely you will need labs CBC/CMP/magnesium/phosphorus. You were treated with antibiotic for concern of UTI, complete the course. Continue to follow-up with your PCP office for long-term monitoring for your history of pulmonary nodule. Take your medications as prescribed. Please make sure that you are able to get your medications today by calling your pharmacy before you leave the hospital so that your treatment continuity is not broken. Pending Studies at Discharge: No Stand-Alone Forms: My [employer], Smoking Cessation Skilled Items Patient informed of condition?: Yes DNR: No Discharge Level of Care: Other Communicable Disease: No Discharge Prognosis: Stable Lines: None Urinary Catheter: No Medications and DC Order Prescriptions: New Phospha 250 Neutral 250 mg Tablet 2 tab PO QID 2 Days Qty: 16 0RF Advanced Probiotic 625 mg (10 billion cell) Capsule 1 cap PO DAILY 7 Days Qty: 7 0RF cefdinir 300 mg capsule 300 mg PO BID 5 Days Qty: 10 0RF Continued tamsulosin [Flomax] 0.4 mg Capsule 0.4 mg PO HS cholecalciferol (vitamin D3) [Vitamin D3] 50 mcg (2,000 unit) Capsule 50 mcg PO QAM acetaminophen [Tylenol] 325 mg Tablet 650 mg PO Q6H MDD 3 GRAMS APAP/24 HOURS PRN (Reason: FEVER/PAIN) polyethylene glycol 3350 [Miralax] 17 gram powder in packet 17 g PO QAM PRN (Reason: Constipation) acetaminophen 500 mg Tablet 1,000 mg PO BID hydrocortisone 1 % Cream 1 applic TOPICAL QID pantoprazole [Protonix] 40 mg tablet,delayed release (DR/EC) 40 mg PO QAM diclofenac sodium [Voltaren] 1 % Gel 4 g TOPICAL Q6H MDD 8 GRAMS/DAILY PRN (Reason: LEFT KNEE PAIN) Discharge Orders: Discharge Order (Routine); Ordered 10/27/23 Ordered By: Elizabeth Perry Admission Data Admit Date/Time: 10/25/23 21:50 Attending Provider: Elizabeth Perry Admit Provider: Juan Killian Primary Care Provider: Wally Denson Other Providers: Juan Killian
== END 2023-10-27 14:20 | disposition home or self-care (01) | DRG 690 ==
LOC: ED 17:55 → 3N 21:50 → SUATTDRO 21:50 → 3N 22:52

== ENCOUNTER 2023-11-04 07:26 | Inpatient (IN) ==
[2023-11-04 08:42] LABS: Basophils # (auto) 0.05 K/uL (0.00-0.20); Basophils % (auto) 0.5 %; Eosinophils # (auto) 0.11 K/uL (0.00-0.50); Eosinophils % (auto) 1.2 %; Hematocrit (blood only) 41.5 % (42.0-52.0); Hemoglobin 13.7 g/dl (14.0-18.0); Immature Granulocytes # (auto) 0.05 K/uL (0.01-0.20); Immature Granulocytes % (auto) 0.5 %; Lymphocytes # (auto) 0.78 K/uL (1.20-3.40); Lymphocytes % (auto) 8.3 %; Mean Corpuscular Hemoglobin 29.7 pg (25.0-34.0); Mean Platelet Volume 10.2 fL (9.4-12.4); Monocytes # (auto) 0.38 K/uL (0.11-0.59); Neutrophils # (auto) 8.07 K/uL (1.40-6.50); Neutrophils % (auto) 85.5 %; Platelet Count 295 K/uL (130-400); RDW Coefficient of Variation 14.5 % (11.5-14.5); RDW Standard Deviation 47.6 fL (36.4-46.3); Red Blood Count 4.61 M/uL (4.70-6.10); White Blood Count 9.44 K/ul (4.8-10.8)
--- NOTE | 2023-11-04 08:44 | Emergency Department Note ---
Impression & Plan Closed fracture of left hip, Fall ED Provider Note NAME: MARILUZ ANAYA AGE: 88 SEX: Male INFORMANT: Patient ED PROVIDER(S): Davion Quiñonez MD CHIEF COMPLAINT: Fall PLAN: Disposition: Admission Outpatient prescription management: none Referral: None MEDICAL DECISION MAKING: Patient presented after a fall. He was given pain medication prehospital which did not seem to help. He had physical findings concerning for left hip fracture. X-ray imaging was ordered. Patient had blood work obtained. Patient also had CT imaging of the head ordered. CT imaging of the head was negative. The patient has a left hip fracture on x-ray. He was feeling better on reassessment after Dilaudid. Urinalysis did not reveal any convincing evidence of infection. Culture pending. The patient had a consult placed with Dr. Monroe of [facility]. He will see the patient for operative management. [facility] Patient will be admitted by internal medicine for further management. I refer you to the EMR for further details. Care/management discussed with: manager of marketing Level of care consideration(s): After review of the information above and other included data, I feel the patient requires escalation of care to admission Triage Nursing notes: reviewed and agree them. Vital Signs: reviewed and remarkable for no significant abnormalities Additional History obtained from: none Chronic Medical/Social Conditions affecting care: Hypertension, history of GI bleed, emphysema Prior/ Outside/ External records reviewed: Discharge summary from October 26 reviewed. Patient was admitted because of mechanical fall. No traumatic findings noted on imaging. The patient did have a UTI. Patient discharged Differential Diagnosis: Fracture, dislocation, neurovascular compromise, compartment syndrome, soft tissue injury, as well as other pathologies. Diagnostics, independently interpreted by me: ECG: Twelve-lead ECG reveals a normal sinus rhythm at 69 bpm. Left anterior fascicular block. Right bundle branch block. No ST elevation. Cardiac Monitoring: Cardiac monitoring ordered by me: The patient was placed on continuous cardiac monitoring and observed. It revealed a normal sinus rhythm at 70 beats per minute without ectopy or evidence of dysrhythmia. Medical decision rules: none Imaging studies: Head CT: A noncontrast CT scan of the head was performed and was negative for tumor, fracture, intracranial hemorrhage, or other acute pathology. X-ray imaging of the left hip reveals a impacted femoral neck fracture HPI: 88 year old Male arrives for evaluation of hip pain.This started shortly before arrival and is from a mechanical fall. Patient landed on his left side.. The patient also notes the following associated symptoms, patient difficulty moving the left leg, mild skin tear to the right arm without any pain. The patient has been given Zofran and fentanyl prehospital for relieving factors. Current pain is rated as 10/10. Patient denies hitting his head but is unsure with specific questioning. Pt denies LOC, headache, fevers, chills, diaphoresis, neck pain, chest pain, breathing difficulties, nausea, vomiting, abdominal pain, back pain, urinary symptoms, numbness, weakness,or other complaints. PAST MEDICAL HISTORY: See Below, UTI, hypertension, emphysema PAST SURGICAL HISTORY: See Below, SOCIAL HISTORY: See Below, retired, resides at a nursing facility. HOME MEDICATIONS: See Below ALLERGIES: See Below VITALS: See Below PHYSICAL EXAMINATION: GENERAL: Awake, alert, uncomfortable-appearing, in no distress HENT: Normocephalic, atraumatic. Oropharynx unremarkable. EYES: Normal conjunctiva. Sclera non-icteric. NECK: Inspection normal. Non-tender. Supple. No nuchal rigidity. FROM. No masses. RESPIRATORY: Clear to auscultation. No wheezes. No rales. Normal respiratory effort. CARDIAC: Normal rate. Normal rhythm. No murmurs. No rubs. Extremities warm and well perfused. Pulses equal. No JVD. GI: Soft, non-distended. No tenderness to palpation. No rebound or guarding. No masses. RECTAL: Deferred. MUSCULOSKELETAL: Upper extremities and right lower extremity are essentially atraumatic. No bony deformity or tenderness to palpation. Examination of the left lower extremity reveals some mild shortening and external rotation. There is tenderness to palpation of the left hip with limited range of motion secondary to pain. The mid and distal femur are nontender. Knee joint is nontender. The distal lower leg is nondeformed and nontender. Chest examination reveals no tenderness. The back is symmetrical on inspection without obvious abnormality. There is no CVA tenderness to palpation. No joint edema. Bilateral chronic venous discoloration. Trace edema bilaterally. NEURO: Normal sensorium. No sensory or motor deficits noted. SKIN: No rash or jaundice noted. PROCEDURES: none CRITICAL CARE: none OBSERVATION NOTE: none Past Med/Surg History Medical History Abnormal urinalysis Aortic valve sclerosis Bladder stones History of colon polyps History of COVID-19 09/11/21 @ [facility] (asymptomatic, tested prior to procedure)--no issues Hearing deficit Centrilobular emphysema Left hip pain Anemia Lung nodule Acute pancreatitis Osteoarthritis Spinal stenosis B/L LE radiculopathy History of hypertension controlled since weight loss Mandibular fracture DDD (degenerative disc disease) BPH (benign prostatic hyperplasia) Surgical History History of ERCP (~11/30/20) History of esophagogastroduodenoscopy (EGD) last 09/29/21 @ [place] History of colonoscopy Previous back surgery History of tonsillectomy and adenoidectomy Hx of toe surgery HAD TOENAIL REMOVED IN OFFICE 12/2018 Hx of tonsillectomy Hx of hernia repair RIGHT INGUINAL History of carpal tunnel surgery RIGHT HAND History of appendectomy Family History Mother Liver cancer Social History Smoking Status: Former smoker Tobacco Type: Cigarettes Second Hand Exposure: No; Do You Dip or Chew Tobacco: No; Hx Alcohol Use: Yes Alcohol type: hard liquor Hx Substance Use: No Preferred Language: Tunisian Communication Ability: Effective Communication Ability Comment: pt is [place] Visual Impairment: No Limitations Package Pick Up Required: No Beliefs That Will Affect Care: None marital status: Current Living Situation: Spouse and Personal Care Facility Current Living Situation Comment: Lives at [facility] with his Ibeth Feels Safe at Home: Yes Assistive Devices: Walker Allergies Allergies Allergy/AdvReac Type Severity Reaction Status Date / Time meloxicam Allergy Mild RASH Verified 10/25/23 18:54 hydrochlorothiazide AdvReac Severe PANCREATITI Verified 10/25/23 18:54 S morphine AdvReac Severe convulsions Verified 10/25/23 18:54 gabapentin AdvReac Intermediate Fainting Verified 10/25/23 18:54 Home Meds Home Medications Medication Instructions Recorded Confirmed tamsulosin 0.4 mg capsule (Flomax) 0.4 mg PO HS 05/04/19 04/26/24 cholecalciferol (vitamin D3) 50 50 mcg PO QAM 04/24/21 11/04/23 mcg (2,000 unit) capsule (Vitamin D3) acetaminophen 325 mg tablet 650 mg PO Q6H PRN FEVER/PAIN 05/13/23 11/04/23 (Tylenol) acetaminophen 500 mg tablet 1,000 mg PO BID 05/13/23 11/04/23 hydrocortisone 1 % topical cream 1 applic topical QID 05/13/23 11/04/23 pantoprazole 40 mg tablet,delayed 40 mg PO QAM gastric erosions 05/13/23 11/04/23 release (Protonix) polyethylene glycol 3350 17 gram 17 g PO QAM PRN Constipation 05/13/23 11/04/23 oral powder packet (Miralax) diclofenac sodium 1 % topical gel 4 g topical Q6H PRN LEFT KNEE PAIN 10/25/23 11/04/23 Results & Data (ED) Vital Signs Vital Signs - 24 hr 11/04/23 07:49 11/04/23 07:49 11/04/23 08:15 Temperature 36.7 C 36.7 C Temperature Source Oral Oral Pulse Rate 67 70 Pulse Rate [Right Finger] 67 Pulse Rhythm Regular Pulse Rhythm [Right Finger] Regular Pulse Strength Normal Pulse Strength [Right Finger] Normal Respiratory Rate 22 22 Respiratory Effort / Characteristics Non-Labored Spontaneous Non-Labored Spontaneous Respiratory Depth Normal Normal Respiratory Pattern Regular Regular Blood Pressure 166/97 H Blood Pressure [Left Arm] 166/97 H Blood Pressure Mean 120 Blood Pressure Mean [Left Arm] 120 Blood Pressure Position Semi-fowlers Blood Pressure Position [Left Arm] Pulse Oximetry 95 95 Oxygen Delivery Method Nasal Cannula Nasal Cannula Oxygen Flow Rate 4 4 Sepsis Recent Fever Within 48 Hours No Sepsis New/Unexplained Change in Mental Status N/A Sepsis Action Taken by Nursing No Action Required 11/04/23 09:49 Temperature 36.9 C Temperature Source Oral Pulse Rate Pulse Rate [Right Finger] 72 Pulse Rhythm Pulse Rhythm [Right Finger] Regular Pulse Strength Pulse Strength [Right Finger] Normal Respiratory Rate 20 Respiratory Effort / Characteristics Non-Labored Spontaneous Respiratory Depth Normal Respiratory Pattern Regular Blood Pressure Blood Pressure [Left Arm] 168/86 H Blood Pressure Mean Blood Pressure Mean [Left Arm] 113 Blood Pressure Position Blood Pressure Position [Left Arm] Semi-fowlers Pulse Oximetry 95 Oxygen Delivery Method Nasal Cannula Oxygen Flow Rate 4 Sepsis Recent Fever Within 48 Hours Sepsis New/Unexplained Change in Mental Status Sepsis Action Taken by Nursing Laboratory Data 11/04/23 07:45 11/04/23 07:45 Lab Results 11/04/23 Range/Units 07:45 WBC 9.44 (4.8-10.8) K/ul RBC 4.61 L (4.70-6.10) M/uL Hgb 13.7 L (14.0-18.0) g/dl Hct 41.5 L (42.0-52.0) % MCV 90.0 (80.0-100.0) fL MCH 29.7 (25.0-34.0) pg MCHC 33.0 (32.0-36.0) g/dL RDW Std Deviation 47.6 H (36.4-46.3) fL RDW Coeff of Jocelyn 14.5 (11.5-14.5) % Plt Count 295 (130-400) K/uL MPV 10.2 (9.4-12.4) fL Immature Gran % (Auto) 0.5 % Neut % (Auto) 85.5 % Lymph % (Auto) 8.3 % [place] % (Auto) 4.0 % Eos % (Auto) 1.2 % Baso % (Auto) 0.5 % Neut # (Auto) 8.07 H (1.40-6.50) K/uL Lymph # (Auto) 0.78 L (1.20-3.40) K/uL [place] # (Auto) 0.38 (0.11-0.59) K/uL Eos # (Auto) 0.11 (0.00-0.50) K/uL Baso # (Auto) 0.05 (0.00-0.20) K/uL Immature Gran # (Auto) 0.05 (0.01-0.20) K/uL PT 11.2 (9.0-12.0) Seconds INR 1.0 (0.9-1.1) APTT 27 (21-31) Seconds PTT Ratio 1.0 Sodium 143 (136-145) mmol/L Potassium 3.7 (3.5-5.1) mmol/L Chloride 108 H (98-107) mmol/L Carbon Dioxide 28 (21-32) mmol/L Anion Gap 7 (3-11) BUN 14 (6-23) mg/dl Creatinine 0.69 (0.6-1.4) mg/dl Est Cr Clr Drug Dosing 76.9 ml/min Est GFR ( Amer) 98.9 ml/min Est GFR (Non-Af Amer) 85.4 ml/min BUN/Creatinine Ratio 20.3 H (10-20) Glucose 116 H (70-99(Fasting)) mg/dl Calcium 9.3 (8.6-10.3) mg/dl Total Bilirubin 0.7 (0.2-1.0) mg/dl AST 21 (13-39) U/L ALT 23 (7-52) U/L Alkaline Phosphatase 105 H (34-104) U/L Total Protein 7.3 (6.0-8.3) gm/dl Albumin 4.1 (3.4-5.0) gm/dl Globulin 3.2 (2.5-4.0) gm/dl Albumin/Globulin Ratio 1.3 (0.9-2) Administered Medications Acetaminophen (Acetaminophen 500 Mg Tab) 1,000 mg PO Q8H [facility] Stop: 12/04/23 13:59 Last Admin: 11/04/23 14:16 Dose: 1,000 mg Documented By: LORELEI Hydromorphone HCl (Hydromorphone Inj 0.5 Mg/0.5 Ml Syr) 0.5 mg IV Q20M PRN PRN Reason: Severe Pain (Rating 7,8,9,10) Stop: 11/18/23 08:13 Last Admin: 11/04/23 12:03 Dose: 0.5 mg Documented By: Admin: 11/04/23 09:03 Dose: 0.5 mg Documented By: RICHARDSON Lactated Ringer's (Lr) 1,000 mls @ 75 mls/hr IV .[id number] [facility] Stop: 12/04/23 08:14 Last Admin: 11/04/23 09:54 Dose: 75 mls/hr Documented By: RICHARDSON Discontinued Medications Hydromorphone HCl (Hydromorphone Inj 0.5 Mg/0.5 Ml Syr) 0.25 mg IV Q20M PRN PRN Reason: Moderate Pain (Rating 3,4,5,6) Stop: 11/18/23 08:13 Last Admin: 11/04/23 10:38 Dose: 0.25 mg Documented By: RICHARDSON Oxycodone HCl (Oxycodone Hcl Ir 5 Mg Tab (Immediate Release)) 5 mg PO NOW STA Stop: 11/04/23 12:01 Last Admin: 11/04/23 12:08 Dose: 5 mg Documented By: GGG Imaging Data Radiologist's Impression: Hip X-Ray 11/04/23 08:14 XR hip LT min 2V CLINICAL HISTORY: fall, hip pain COMPARISON: Pelvis radiograph October 25, 2023. FINDINGS: There is an acute displaced impacted left femoral neck fracture. Fracture is displaced approximately 1.6 cm. There is superior displacement of the distal component. No acute fractures are identified within visualized portions of the left hemipelvis. IMPRESSION: Acute displaced impacted left femoral neck fracture. ACT 112: Negative or not required by law. Electronically signed by: Keshawn Mckeon M.D. 11/04/2023 9:[address] 11/04/23 08:20 CT OF THE HEAD WITHOUT CONTRAST CLINICAL HISTORY: fall COMPARISON STUDY: Head CT October 25, 2023. CT DOSE: 625.8 mGy.cm TECHNIQUE: Helical axial images of the head were obtained without IV contrast. Automated exposure control was utilized for the study. A dose lowering technique was utilized adhering to the principles of ALARA. FINDINGS: No acute intracranial hemorrhage, midline shift or mass effect is present. The ventricular system is stable. White matter hypodensities are unchanged and favor small vessel disease. The basal cisterns are patent. No extra-axial collections are present. There are no findings to suggest acute dural sinus thrombosis or acute territorial infarct. There are no calvarial fracture. 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 IMPRESSION: 1. No acute intracranial findings. No change in appearance of the brain. 2. No calvarial fractures. ACT 112: Negative or not required by law. Electronically signed by: Keshawn Mckeon M.D. 11/04/2023 9:58 AM Discharge Plan Visit Data Chief Complaint: Hip Pain Stated Complaint: FALL, HIP PAIN ED Provider: Davion Quiñonez Discharge Problem: Closed fracture of left hip, Fall Patient Disposition: Admitted As Inpatient Discharge Instructions Interventions: ED Discharge Assessment Last Done: 11/04/23 14:00 Discharge Problem: Closed fracture of left hip Qualifiers: Encounter type: initial encounter Qualified Code(s): S72.002A - Fracture of unspecified part of neck of left femur, initial encounter for closed fracture Fall Qualifiers: Encounter type: initial encounter Qualified Code(s): W19.XXXA - Unspecified fall, initial encounter
[2023-11-04 08:45] LABS: Partial Thromboplastin Time 27 Seconds (21-31); Prothrombin Time 11.2 Seconds (9.0-12.0)
[2023-11-04 09:03] LABS: Albumin Globulin Ratio 1.3 (0.9-2); Albumin Level 4.1 gm/dl (3.4-5.0); BUN Creatinine Ratio 20.3 (10-20); Bilirubin,Total 0.7 mg/dl (0.2-1.0); Calcium 9.3 mg/dl (8.6-10.3); Creatinine Clr Calc Pharmacy 76.9 ml/min; Est GFR (African American) 98.9 ml/min; Est GFR (Non-African American) 85.4 ml/min; Globulin 3.2 gm/dl (2.5-4.0); Potassium 3.7 mmol/L (3.5-5.1); Total Protein 7.3 gm/dl (6.0-8.3)
[2023-11-04] MEDS: HYDROmorphone INJ 0.5 MG/0.5 ML SYR IV PRN ×2 (09:03→10:38)
--- NOTE | 2023-11-04 09:33 | XRay Report ---
XR hip LT min 2V CLINICAL HISTORY: fall, hip pain COMPARISON: Pelvis radiograph October 25, 2023. FINDINGS: There is an acute displaced impacted left femoral neck fracture. Fracture is displaced cholo roximately 1.6 cm. There is superior displacement of the distal component. No acute fractures are stanley ntified within visualized portions of the left hemipelvis. IMPRESSION: Acute displaced impacted left femoral neck fracture. ACT 112: Negative or not required by law. Electronically signed by: Keshawn Mckeon M.D. 11/04/2023 9:31 AM
[2023-11-04] MEDS: LACTATED RINGER'S 1,000 ML IV SCH (09:54)
--- NOTE | 2023-11-04 09:59 | CT Scan Report ---
CT OF THE HEAD WITHOUT CONTRAST CLINICAL HISTORY: fall COMPARISON STUDY: Head CT October 25, 2023. CT DOSE: 625.8 mGy.cm TECHNIQUE: Helical axial images of the head were obtained without IV contrast. Automated exposure con trol was utilized for the study. A dose lowering technique was utilized adhering to the principles o f ALARA. FINDINGS: No acute intracranial hemorrhage, midline shift or mass effect is present. The ventricular system is stable. White matter hypodensities are unchanged and favor small vessel disease. The basal cisterns are patent. No extra-axial collections are present. There are no findings to suggest acute d ural sinus thrombosis or acute territorial infarct. There are no calvarial fracture. 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 IMPRESSION: 1. No acute intracranial findings. No change in appearance of the brain. 2. No calvarial fractures. ACT 112: Negative or not required by law. Electronically signed by: Keshawn Mckeon M.D. 11/04/2023 9:58 AM
--- NOTE | 2023-11-04 10:38 | History & Physical Report ---
Date of Service November 04, 2023 Assessment & Plan (1) Closed fracture of left hip: Plan: Fall with hip fracture. This patient has a h/o falls with admissions for trauma secondary to this. No precipitating causes. Per daughter, he completed his antibiotic course for recent UTI. Pt denies any UTI symptoms, fevers or chills. No antibiotics necessary at this time. The patient ambulates with a walker and his daughter reports that he will be getting a new design walker with a seat next week. Ortho consulted. Pain management with scheduled tylenol and narcotics as needed for breakthrough pain. BP slightly elevated likely a result of the pain. No h/o VTE per patient reports, also no history of issues with anesthesia in the past. He denies chest pain, shortness of breath. 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 Proceed to surgery, if recommended, without further workup. (2) Fall: Plan: PT/OT consults deferred to ortho post operatively. (3) Centrilobular emphysema: Plan: chronic, stable. No hypoxia, normal breathing patterns, clear lungs to ausc ultation. Not on inhaler therapy per records review. (4) BPH (benign prostatic hyperplasia): Plan: chronic, stable. Cont tamsulosin per home regimen. (5) DDD (degenerative disc disease): Plan: chronic back pain. Pt reports lower back pain today likely related to the fall, but he cannot given any history on this pain. Daughter reports patient had back pain last week. There is no CVA tenderness. Will obtain CT L-spine. Cont supportive care with pain medications. DVT proph-held preoperatively, SCDs Full Code confirmed with patient on admission Dispo-to J[employer]ike. I spent a total of 75 minutes coordinating, documenting, and providing care for this patient excluding time spent in the performance of separately billed services [facility] of Present Illness Chief Complaint: hip fracture Primary Care Provider: Wally Denson DO Recently admitted to this hospital 10/24- for a fall and UTI. Went home with 5 days of cefdinir. Interestingly, he was also admitted in May 2023 after a fall with lacerations to his face and scalp and other minor injuries. He lives at [facility] with his . He is oriented today and despite prior notes reporting a history of dementia, his daughter states that he doesn't have any issues like that. On 10/26/23, during last admission to the hospital, he was evaluated by PT and was able to ambulate 80 ft with a RW and contact guard assistance. His gait was slow and he was noted to display shorter step length on both sides. Today he suffered a fall, landing on his left side with subsequent acute left hip fracture. The pt denies any loss of consciousness and states that he tripped with the cause "stupidity." Allergies Allergy/AdvReac Type Severity Reaction Status Date / Time meloxicam Allergy Mild RASH Verified 10/25/23 18:54 hydrochlorothiazide AdvReac Severe PANCREATITI Verified 10/25/23 18:54 S morphine AdvReac Severe convulsions Verified 10/25/23 18:54 gabapentin AdvReac Intermediate Fainting Verified 10/25/23 18:54 Home Medications Medication Instructions Recorded Confirmed Type tamsulosin 0.4 mg capsule (Flomax) 0.4 mg PO HS 11/11/18 11/04/23 History cholecalciferol (vitamin D3) 50 50 mcg PO QAM 04/24/21 11/04/23 History mcg (2,000 unit) capsule (Vitamin D3) acetaminophen 325 mg tablet 650 mg PO Q6H PRN FEVER/PAIN 05/13/23 11/04/23 History (Tylenol) acetaminophen 500 mg tablet 1,000 mg PO BID 05/13/23 11/04/23 History hydrocortisone 1 % topical cream 1 applic topical QID 05/13/23 11/04/23 History pantoprazole 40 mg tablet,delayed 40 mg PO QAM gastric erosions 05/13/23 11/04/23 History release (Protonix) polyethylene glycol 3350 17 gram 17 g PO QAM PRN Constipation 05/13/23 11/04/23 History oral powder packet (Miralax) diclofenac sodium 1 % topical gel 4 g topical Q6H PRN LEFT KNEE PAIN 10/25/23 11/04/23 History Past Med/Surg History Medical History Abnormal urinalysis Aortic valve sclerosis Bladder stones History of colon polyps History of COVID-19 09/11/21 @ [facility] (asymptomatic, tested prior to procedure)--no issues Hearing deficit Centrilobular emphysema Left hip pain Anemia Lung nodule Acute pancreatitis Osteoarthritis Spinal stenosis B/L LE radiculopathy History of hypertension controlled since weight loss Mandibular fracture DDD (degenerative disc disease) BPH (benign prostatic hyperplasia) Surgical History History of ERCP (~11/30/20) History of esophagogastroduodenoscopy (EGD) last 09/29/21 @ [place] History of colonoscopy Previous back surgery History of tonsillectomy and adenoidectomy Hx of toe surgery HAD TOENAIL REMOVED IN OFFICE 12/2018 Hx of tonsillectomy Hx of hernia repair RIGHT INGUINAL History of carpal tunnel surgery RIGHT HAND History of appendectomy Family History Mother Liver cancer Social History Smoking Status: Former smoker Tobacco Type: Cigarettes Second Hand Exposure: No; Do You Dip or Chew Tobacco: No; Hx Alcohol Use: Yes Alcohol type: hard liquor Hx Substance Use: No Preferred Language: Arabic Communication Ability: Effective Communication Ability Comment: pt is RUBY Visual Impairment: No Limitations 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 Required: No Beliefs That Will Affect Care: None marital status: Current Living Situation: Spouse and Personal Care Facility Current Living Situation Comment: Lives at [facility] with his Ibeth Feels Safe at Home: Yes Assistive Devices: Walker Physical Exam Physical Exam: CONSTITUTIONAL: WNWD, vitals as above, generally well-appearing, mild distress 2/2 hip and lower back pain EYES: PERRL, normal conjunctivae, no scleral icterus ENT: external ear and nose normal, MMM NECK: trachea midline RESPIRATORY: clear to auscultation bilaterally, no crackles, rales or wheezes, normal respiratory effort CARDIOVASCULAR: regular rate and rhythm, S1 and 2 heard without murmurs, gallops or rubs, no JVD, no peripheral edema CHEST: inspection of chest was normal GASTROINTESTINAL: normal bowel sounds, soft, nontender, ND, no guarding. MUSCULOSKELETAL: strength 5/5 throughout, head is normocephalic and atraumatic SKIN: warm and dry NEUROLOGIC: CN 2-12 grossly intact, no sensory deficit, normal cognition, normal speech, no tremor PSYCHIATRIC: alert cooperative and oriented to person, place and time. Euthymic mood, makes good eye contact, language grossly intact, memory poor as cannot give clear recollection of events this morning. Results & Data Results & Data Vital Signs (Past 12 Hours) Vital Signs Temp Pulse Pulse Resp BP BP Pulse Ox 11/04/23 09:49 36.9 C 72 20 168/86 H 95 11/04/23 08:15 70 11/04/23 07:49 36.7 C 67 22 166/97 H 95 11/04/23 07:49 36.7 C 67 22 166/97 H 95 O2 Del Method O2 Flow Rate 11/04/23 09:49 Nasal Cannula 4 11/04/23 08:15 11/04/23 07:49 Nasal Cannula 4 11/04/23 07:49 Nasal Cannula 4 Laboratory Results Short CBC 11/04/23 Range/Units 07:45 WBC 9.44 (4.8-10.8) K/ul Hgb 13.7 L (14.0-18.0) g/dl Hct 41.5 L (42.0-52.0) % Plt Count 295 (130-400) K/uL BMP 11/04/23 07:45 Sodium 143 Potassium 3.7 Chloride 108 H Carbon Dioxide 28 BUN 14 Creatinine 0.69 Glucose 116 H Calcium 9.3 Liver Function 11/04/23 Range/Units 07:45 Total Bilirubin 0.7 (0.2-1.0) mg/dl AST 21 (13-39) U/L ALT 23 (7-52) U/L Alkaline Phosphatase 105 H (34-104) U/L Albumin 4.1 (3.4-5.0) gm/dl Urine 11/04/23 Range/Units Unknown Urine Color Yellow Urine Appearance Clear (Clear) Urine pH 5.0 (4.5-7.5) Ur Specific [place] 1.017 (1.000-1.030) Urine Protein Trace H (Negative) Urine Glucose (UA) Negative (Negative) Diagnostic Findings Hip X-Ray 11/04/23 08:14 XR hip LT min 2V CLINICAL HISTORY: fall, hip pain COMPARISON: Pelvis radiograph October 25, 2023. FINDINGS: There is an acute displaced impacted left femoral neck fracture. Fracture is displaced approximately 1.6 cm. There is superior displacement of the distal component. No acute fractures are identified within visualized portions of the left hemipelvis. IMPRESSION: Acute displaced impacted left femoral neck fracture. ACT 112: Negative or not required by law. Electronically signed by: Keshawn Mckeon M.D. 11/04/2023 9:[address] 11/04/23 08:20 CT OF THE HEAD WITHOUT CONTRAST CLINICAL HISTORY: fall COMPARISON STUDY: Head CT October 25, 2023. CT DOSE: 625.8 mGy.cm TECHNIQUE: Helical axial images of the head were obtained without IV contrast. Automated exposure control was utilized for the study. A dose lowering technique was utilized adhering to the principles of ALARA. FINDINGS: No acute intracranial hemorrhage, midline shift or mass effect is present. The ventricular system is stable. White matter hypodensities are unchanged and favor small vessel disease. The basal cisterns are patent. No extra-axial collections are present. There are no findings to suggest acute dural sinus thrombosis or acute territorial infarct. There are no calvarial fracture. 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 IMPRESSION: 1. No acute intracranial findings. No change in appearance of the brain. 2. No calvarial fractures. ACT 112: Negative or not required by law. Electronically signed by: Keshawn Mckeon M.D. 11/04/2023 9:58 AM Code Status & VTE Plan VTE Prophylaxis Plan VTE Prophylaxis will be ordered: Yes (1) Closed fracture of left hip Encounter type: initial encounter Qualified Code(s): S72.002A - Fracture of unspecified part of neck of left femur, initial encounter for closed fracture (2) Fall Encounter type: initial encounter Qualified Code(s): W19.XXXA - Unspecified fall, initial encounter
[2023-11-04 11:42] LABS: Appearance Urine Clear (Clear); Bacteria Urine Automated None Seen (None Seen); Bilirubin Urine Negative (Negative); Blood Urine Negative (Negative); Cast Urine Automated 0-2 /lpf (0-2); Color Urine Yellow; Epithelial Cell Urine Auto 0-2 /hpf (0-2); Glucose Urine UA Negative (Negative); Ketones Urine Negative (Negative); Leukocyte Esterase Urine 2+ (Negative); Nitrite Urine Negative (Negative); Protein Urine Trace (Negative); RBC Urine Automated 0-2 /hpf (0-2); Specific Gravity Urine 1.017 (1.000-1.030); Urobilinogen Urine Negative (Negative); WBC Urine Automated >50 /hpf (0-5)
[2023-11-04] MEDS: oxyCODONE HCL IR 5 MG TAB (IMMEDIATE RELEASE) PO STA (12:08)
--- NOTE | 2023-11-04 13:01 | Electrocardiogram Report ---
Test Reason : Blood Pressure : / mmHG Vent. Rate : 069 BPM Atrial Rate : 069 BPM P-R Int : 182 ms QRS Dur : 132 ms QT Int : 448 ms P-R-T Axes : 005 -55 016 degrees QTc Int : 480 ms Normal sinus rhythm Right bundle branch block Left anterior fascicular block Bifascicular block Abnormal ECG When compared with ECG of 25-OCT-2023 18:21, No significant change was found Confirmed by Chandu Torres ([id number]) on 11/04/2023 1:00:48 PM Referred By: Confirmed By:Chandu Torres
[2023-11-04] MEDS ORDERED: ONDANSETRON INJ 2 MG/ML 2 ML VIAL IV PRN (13:59)
[2023-11-04] MEDS: ACETAMINOPHEN 500 MG TAB PO SCH (14:16)
--- NOTE | 2023-11-04 15:11 | CT Scan Report ---
CT lumbar spine wo con CLINICAL HISTORY: acute back pain, severe, trauma today(fall) COMPARISON STUDY: Lumbar spine radiographs September 04, 2019. CT of the abdomen and pelvis June 04, 2021. TECHNIQUE: Axial images of the lumbar spine were obtained without IV contrast. Sagittal and coronal r econstructions were viewed. Automated exposure control was utilized for the study. A dose lowering t echnique was utilized adhering to the principles of ALARA. FINDINGS: For purposes of numbering on this exam, the L5-S1 disc space is assigned to axial image 299 of 354. There is moderate lumbar spine levoscoliosis. Moderate loss of height of the inferior endpla te of L1 is new since CT of the abdomen and pelvis of June 04, 2021. However, this fracture is no t acute appearing. No definite acute lumbar spine fractures are present. There are postoperative find ings consistent with L3 and L4 laminectomies. There is severe multilevel facet arthrosis and moderate multilevel disc space narrowing with extensive osteophytosis of the lumbar spine. Paravertebral soft tissues are unremarkable. Central canal and neural foramen is suboptimally assessed given CT techniq ue. There is suspected moderate central canal stenosis at L4-L5. Sacroiliac joints are intact. IMPRESSION: 1. Moderate L1 compression fracture, new since CT of June 04, 2021. However, this fracture is lik maxwell subacute to chronic. No acute lumbar spine fracture identified. 2. Status post L3-L4 laminectomies. 3. Multilevel degenerative disc disease and facet arthrosis within the lumbar spine. Suboptimal evalu ation of the central canal and neural foramen given CT technique. Suspected moderate central canal st enosis at L4-L5. 4. Moderate lumbar spine levoscoliosis. ACT 112: Negative or not required by law. Electronically signed by: Keshawn Mckeon M.D. 11/04/2023 3:09 PM
[2023-11-04] MEDS: TAMSULOSIN HCL 0.4 MG CAP PO SCH (22:35)
[2023-11-05 04:34] LABS: Hemoglobin 12.7 g/dl (14.0-18.0); Mean Corpuscular Hemoglobin 29.7 pg (25.0-34.0); Mean Corpuscular Hgb Conc 32.6 g/dL (32.0-36.0); Mean Corpuscular Volume 91.3 fL (80.0-100.0); Mean Platelet Volume 10.2 fL (9.4-12.4); Platelet Count 251 K/uL (130-400); RDW Coefficient of Variation 14.5 % (11.5-14.5); RDW Standard Deviation 48.7 fL (36.4-46.3); Red Blood Count 4.27 M/uL (4.70-6.10); White Blood Count 13.34 K/ul (4.8-10.8)
[2023-11-05 04:54] LABS: BUN Creatinine Ratio 21.7 (10-20); Calcium 9.2 mg/dl (8.6-10.3); Creatinine Clr Calc Pharmacy 89.1 ml/min; Est GFR (African American) 104.8 ml/min; Est GFR (Non-African American) 90.4 ml/min; Potassium 3.7 mmol/L (3.5-5.1)
--- OUTSIDE RECORDS SUMMARY | 2023-11-05 06:55 | External Medical Summary | Summary of Care ---
Author Name Unknown Organization [facility] Address [address] [place] [address] Phone [phone] Care Team Providers Care Street Openings Inspector Name Role Phone Светлана Diaz MD Primary Care Provider [phone] Reason for Visit * Reason Onset Date Comments Hospital Follow-Up [facility] d/c 10/26 Hospital Follow-Up 11/02/2023 Encounter Details Date Type Department Care Team (Late st Contact Info) Description 11/02/2023 10:00 AM EDT Office Visit General Internal Medicine [facility] [address] [place] [address] Светлана Diaz MD [address] [place] [address] Fall, subsequent encounter*; Acute cystitis without hematuria; Hospital discharge follow-up; Postherpetic neuralgia; Myalgia, multiple sites; Fatigue, unspecified type; DDD (degenerative disc disease), lumbar; History of tobacco use; Centrilobular emphysema (HCC); Bladder stones; Bilateral leg edema; Benign nodular prostatic hyperplasia without lower urinary tract symptoms; Aortic valve sclerosis; Imbalance Allergies Active Allergy Reactions Criticality Noted Date Comments Hydrochlorothiazide 12/01/2018 Pancreatitis Meloxicam Rash 06/09/2018 Morphine 12/09/2020 convulsions Pantoprazole Diarrhea 08/20/2019 documented as of this encounter (statuses as of 11/02/2023) Medications Medication Sig Dispensed Refills Start Date End Date Status Tamsulosin HCl 0.4 MG Oral Capsule (Flomax)Indication s:BPH with obstruction/lower urinary tract symptoms Take 1 Capsule by mouth every evening. Restart 10/19/2022 90 Capsule 0 10/19/2022 Active Pantoprazole Sodium 40 MG Oral Tablet Delayed Release (Protonix) TAKE 1 TABLET BY MOUTH DAILY FOR GASTRIC EROSIONS 90 Tablet 1 01/26/2023 Active Acetaminophen 500 MG Oral Tablet (Tylenol) Take 2 Tablets by mouth in the morning and 2 Tablets before bedtime. 0 Active Acetaminophen 325 MG Oral Tablet (Tylenol) Take 1 Tablet by mouth every 6 hours as needed for Pain, Mild. 0 Active Vitamin D3 50 MCG Oral Capsule (Cholecalciferol) Take 2 Capsules by mouth in the morning. 0 Active Hydrocortisone 1 % External Cream Apply topically to affected area 4 times a day. Apply to affected area four times daily 0 Active Polyethylene Glycol 3350 17 GM Oral Packet (Miralax) Take 1 Packet by mouth daily as needed for Constipation. 0 Active Diclofenac Sodium 1 % External Gel (Voltaren) Apply 4 g topically to affected area 4 times a day as needed for Pain, Mild. Apply to left knee 0 Active Cholecalciferol (VITAMIN D3) 2000 units CapsuleIndications :Vitamin D deficiency Take 1 Capsule by mouth in the morning. 90 Cap 1 04/13/2019 4 Discontinued AmLactin 12 % External Lotion APPLY TOPICALLY TO BACK,LEGS,ARMS TWICE DAILY 0 10/21/2021 4 Discontinued traMADol HCl 50 MG Oral Tablet (Ultram)Indication s:DDD (degenerative disc disease), lumbar Take 1 Tablet by mouth every 8 hours as needed for Pain, Moderate. 90 Tablet 0 03/08/2022 4 Discontinued Mupirocin 2 % External Ointment (Bactroban) APPLY A SMALL AMOUNT TO THE AFFECTED AREAS BY TOPICAL ROUTE 1 TIMES PER DAY and cover with bandaid 0 02/18/2022 4 Discontinued Acetaminophen 500 MG Oral Tablet (Tylenol)Indicatio ns:Lumbar degenerative disc disease Take 2 Tablets by mouth in the morning and 2 Tablets at noon and 2 Tablets before bedtime. Patient may self administer. 100 Tablet 0 09/30/2022 4 Discontinued documented as of this encounter (statuses as of 11/02/2023) Active Problems Problem Noted Date Diagnosed Date Centrilobular emphysema 02/25/2021 Pulmonary nodule 06/05/2019 Bladder stones 06/05/2019 Bilateral leg edema 08/17/2018 Postherpetic neuralgia 08/02/2017 DDD (degenerative disc disease), lumbar 08/02/19 18 Aortic valve sclerosis 04/01/2017 History of tobacco use 04/01/2017 Benign nodular prostatic hyp erplasia without lower urinary tract symptoms 01/25/2017 documented as of this encounter (statuses as of 11/02/2023) Resolved Problems Problem Noted Date Diagnosed Date Resolved Date Laceration of ear 07/27/2018 08/17/2018 Macrocytosis without anemia 04/01/2017 03/27/2018 HTN, goal below 150/90 01/25/201707/19 Inflamed seborrheic keratosis 10/17/2012 08/02/2017 Herpes zoster without complication 08/02/2017 Overview: rt cheek documented as of this encounter (statuses as of 11/02/2023) Immunizations Name Administration Dates Next Due COVID-19 mRNA, LNP-s, No Pre serve, 2-Dose Series ([employer]) 06/22/2021,09/19/2020,08/29/2020 DTP Vaccine 09/28/2017 Influenza, Whole Virus [...] Sign Reading Time Taken Comments Blood Pressure 130/74 11/02/2023 9:48 AM EDT Pulse 70 11/02/2023 9:48 AM EDT Temperature 36.5 C (97.7 F) 11/02/2023 9:48 AM ED T Respiratory Rate - - Oxygen Saturation 97% 11/02/2023 9:48 AM EDT Inhaled Oxygen Concentration - - Weight 79.4 kg (175 lb) 11/02/2023 9:48 AM EDT Height 177.8 cm (5' 10") 11/02/2023 9:48 AM EDT Body Mass Index 25.11 11/02/2023 9:48 AM EDT documented in this encounter Progress Notes * Светлана Diaz MD - 11/02/2023 10:15 AM EDT SUBJECTIVE: Kole Melo is a 88 year old male. Chief Complaint Patient presents with Hospital Follow-Up [facility] d/c 10/27/23 Hospital Follow-Up HPI: 88 year old YOmale with PMH as listed below presents here for hospital follow up. Pt [place] [facility] , then fell which pt doesn't remember why but thinks losthis balance . Presented to hospital on 10/25/23 . He was found to have no fractures and no concussion. He was then admitted and treated with antibiotic for abn urine and hydration . Labs were overall normal except abnormal urine but culture was suggestive of colonization and Imaging CT head and neckwithout acute finding . He was seen by Pt/OT . Rest of the hospital course unremarkable . [place] [id number] [place] meds and cefdinir for UTI . Since discharge feeling better and tired . Hospital records reviewed and updated. The patient's medication list was reviewed and updated as needed. Current issues now- -none -upon asking voices fatigue , tired , leg weakness , imbalance . Ambulated in wheelchair Patient Active Problem List Diagnosis Code Benign nodular prostatic hyperplasia without lower urinary tract symptoms N40.0 Aortic valve sclerosis I35.8 History of tobacco use Z87.891 Postherpetic neuralgia B02.29 DDD (degenerative disc disease), lumbar M51.36 Bilateral leg edema R60.0 Pulmonary nodule R91.1 Bladder stones N21.0 Centrilobular emphysema (HCC) J43.2 Current Outpatient Medications Medication Sig Dispense Refill Tamsulosin HCl 0.4 MG Oral Capsule (Flomax) Take 1 Capsule by mouth every evening. Restart 10/19/2022 90 Capsule 0 Pantoprazole Sodium 40 MG Oral Tablet Delayed Release (Protonix) TAKE 1 TABLET BY MOUTH DAILY FOR GASTRIC EROSIONS 90 Tablet 1 No current facility-administered medications for this visit. Review of patient's allergies indicates: Allergen Reactions Hctz [Hydrochlorothiazide] Pancreatitis Meloxicam Rash Morphine convulsions Pantoprazole Diarrhea Past Medical History: Diagnosis Date Benign nodular prostatic hyperplasia without lower urinary tract symptoms 01/25/2017 HTN, goal below 150/90 01/25/2017 Lung nodule Shingles rt cheek Past Surgical History: Procedure Laterality Date APPENDECTOMY W/OTHER PROCEDURE CARPAL TUNNEL SURGERY Right 12/29/2017 NEUROPLASTY MEDIAN NERVE AT CARPAL TUNNEL performed by Jaleel Serrato Jr., MD at OR [facility] COLONOSCOPY, DIAGNOSTIC (RECTUM) 12/01/2017 TVA polyp, diverticulosis, poor prep, repeat 6 mo/COLONOSCOPY FLEXIBLE PROXIMAL DIAGNOSTIC performed by Ok Carranza MD at ENDOSCOPY [facility] COLONOSCOPY, DIAGNOSTIC (RECTUM) 10/23/2018 adenomatous polyps, repeat 2 yrs/COLONOSCOPY FLEXIBLE PROXIMAL DIAGNOSTIC performed by Ok Carranza MD at ENDOSCOPY [facility] EGD, FLEXIBLE, DIAGNOSTIC 12/01/2017 mild stomach irritation, hiatal hernia/ESOPHAGOGASTRODUODENOSCOPY (EGD), FLEXIBLE, TRANSORAL, DIAGNOSTIC performed by Ok Carranza MD at ENDOSCOPY [facility] EGD, FLEXIBLE, DIAGNOSTIC 08/13/2019 reflux esophagitis, duodenal stenosis, repeat 2 mo / [facility] ERCP 08/13/2019 choledocholithiasis / [facility] ERCP 11/30/2020 duodenal stenosis, ascending cholangitis, choledocholithiasis, repeat 4-6 wks / [facility] ERCP, DIAGNOSTIC, SPECIMEN COLLECTION 01/27/2021 Choledocholithiasis, duodenal stenosis, stent removed / ENDOSCOPIC RETROGRADE CHOLANGIOPANCREATOGRAPHY (ERCP) DIAGNOSTIC performed by Ok Carranza MD at ENDOSCOPY [facility] INJECT DX/THER SUBSTANCE INTERLAMINAR LUMBAR/SACRAL W IMAGE GUIDE 03/03/2017 INJECTION SPINE LUMBAR OR SACRAL performed by Abhay Pino DO at OR [facility] INJECT DX/THER SUBSTANCE INTERLAMINAR LUMBAR/SACRAL W IMAGE GUIDE 05/22/2018 INJECTION SPINE LUMBAR OR SACRAL performed by Abhay Pino DO at OR [facility] INJECT DX/THER SUBSTANCE INTERLAMINAR LUMBAR/SACRAL W IMAGE GUIDE 03/06/2020 INJECTION SPINE LUMBAR OR SACRAL performed by Abhay Pino DO at OR [facility] LAPAROSCOPY; CHOLECYSTECTOMY N/A LAPAROSCOPY; REPAIR INITIAL INGUINAL HERNIA Right REMOVAL OF TONSILS, UNDER AGE 13 REMOVE CATARACT, INSERT LENS PROSTH Left DrM REMOVE LUMBAR SPINE LAMINA, 3+ SEGS N/A 02/19/2019 Family History Problem Relation Age of Onset Cancer Mother No Known Problems Father Brain cancer Brother No Known Problems Brother No Known Problems Brother Social History Socioeconomic History Marital status: Tobacco Use Smoking status: Former Smokeless tobacco: Never Vaping Use Vaping Use: Never used Substance and Sexual Activity Alcohol use: Not Currently Comment: 06/20/2020 quit Drug use: No Social Determinants of Health Food Insecurity: No Food Insecurity (06/05/2019) Hunger Vital Sign Worried About Running Out of Food in the Last Year: Never true Ran Out of Food in the Last Year: Never true Family History Problem Relation Age of Onset Cancer Mother No Known Problems Father Brain cancer Brother No Known Problems Brother No Known Problems Brother REVIEW OF SYSTEMS: All 10 systems reviewed and negative except mentioned in HPI OBJECTIVE: BP 130/74 | Pulse 70 | Temp 36.5 C (97.7 F) (Tympanic) | Ht 1.778 m (5' 10") | Wt 79.4 kg (175 lb) | SpO2 97% | BMI 25.11 kg/m | BSA 1.98 m PHYSICAL EXAM: General: alert, healthy, and no distress Head: Normocephalic, No masses, lesions, tenderness or abnormalities Oropharynx: no exudate, no erythema, lips, buccal mucosa, and tongue normal, and mucous membranes are moist Neck: supple, no adenopathy, no bruits, thyroid normal size, non-tender, without nodularity Heart: regular rate & rhythm, no murmur, and no gallops Lungs: chest symmetric with normal AP diameter, no chest deformities noted, no chest wall tenderness, lungs clear to auscultation Abdomen: abdomen soft, non-tender, normal bowel sounds, and no masses or organomegaly Extremities: less than 2 second capillary refill, trace edema Neuro Exam: alert & oriented x 3 with fluent speech, no focal motor/sensory deficits, imbalance ASSESSMENT AND PLAN Fall, subsequent encounter (Primary) - DISCH MED RECON CUR MED LIS Acute cystitis without hematuria - DISCH MED RECON CUR MED LIS Complete ATB Hospital discharge follow-up - DISCH MED RECON CUR MED LIS Postherpetic neuralgia Stable Myalgia, multiple sites - 25-HYDROXY VITAMIN D; Future; Expected date: 02/01/2024 - ERYTHROCYTE SEDIMENTATION RATE (ESR); Future; Expected date: 02/01/2024 - COMPREHENSIVE METABOLIC PANEL; Future; Expected date: 02/01/2024 Fatigue, unspecified type - TSH WITH FREE T4 IF INDICATED; Future; Expected date: 02/01/2024 - CBC; Future; Expected date: 02/01/2024 DDD (degenerative disc disease), lumbar History of tobacco use Centrilobular emphysema (HCC) Bladder stones Bilateral leg edema Benign nodular prostatic hyperplasia without lower urinary tract symptoms - PSA; Future; Expected date: 02/01/2024 Aortic valve sclerosis Imbalance - ERYTHROCYTE SEDIMENTATION RATE (ESR); Future; Expected date: 02/01/2024 - COMPREHENSIVE METABOLIC PANEL; Future; Expected date: 02/01/2024 - VITAMIN B12; Future; Expected date: 02/01/2024 Follow Up: Return in about 3 months (around 02/01/2024) for recheck after labs. | For: recheck afterlabs Treatment and plan was discussed with patient and was given opportunity to ask questions which wereanswered appropriately. Patient verbalizing understanding. This note was prepared with the help of fluency and if there is any mis-spelled words , sentences or something which doesn't represent the content of the subject that could be technical error and please refer to the author for clarification. Светлана Diaz MD 10:15 AM 11/02/2023 documented in this encounter Nursing Notes * Lory Sagastume LPN - 11/02/2023 9:48 AM EDT Chief Complaint Patient presents with Hospital Follow-Up [facility] d/c 10/27/23 documented in this encounter Plan of Treatment Upcoming Encounters Date Type Department Care Team (Late st Contact Info) Description 04/06/2024 2:00 PM EDT Office Visit General Internal Medicine [facility] [address] [place] [address] Светлана Diaz MD [address] [place] [address] Scheduled Orders Name Type Priority Associated Diagnoses Orde r Schedule PSA Lab Routine Benign nodular prostatic hyperplasia without lower urinary tract symptoms Expected: 02/01/2024, Expires: 11/01/2024 25-HYDROXY VITAMIN D Lab Routine Myalgia, multiple sites Expected: 02/01/2024, Expires: 11/01/2024 ERYTHROCYTE SEDIMENTATION RATE (ESR) Lab Routine Imbalance Myalgia, multiple sites Expected: 02/01/2024, Expires: 11/01/2024 TSH WITH FREE T4 IF INDICATED Lab Routine Fatigue, unspecified type Expected: 02/01/2024, Expires: 11/01/2024 COMPREHENSIVE METABOLIC PANEL Lab Routine Imbalance Myalgia, multiple sites Expected: 02/01/2024, Expires: 11/01/2024 VITAMIN B12 Lab Routine Imbalance Expected: 02/01/2024, Expires: 11/01/2024 CBC Lab Routine Fatigue, unspecified type Expected: 02/01/2024, Expires: 11/01/2024 Scheduled Procedures Name Priority Associated Diagnoses Date/Ti [...] 06/22/2021, 09/19/2020, 08/29/2020 Influenza Vaccine (FLU shot) (Season Ended) 2024 04/10/2022, 04/03/2021, 03/24/2020, Additional history exists O2 ASSESSMENT COMPLETED IN PAST YEAR FOR COPD 11/01/2024 11/02/2023 DTaP,Tdap,and Td Vaccines (3 - Td or [...] as of this encounter Visit Diagnoses Diagnosis Fall, subsequent encounter- Primary Acute cystitis without hematuria Acute cystitis Hospital discharge follow-up Other follow-up examination Postherpetic neuralgia Herpes zoster with other nervous system complications Myalgia, multiple sites Fatigue, unspecified type DDD (degenerative disc disease), lumbar Degeneration of lumbar or lumbosacral intervertebral disc History of tobacco use Personal history of tobacco use, presenting hazards to health Centrilobular emphysema (HCC) Other emphysema Bladder stones Other calculus in bladder Bilateral leg edema Edema Benign nodular prostatic hyperplasia without lower urinary tract symptoms Aortic valve sclerosis Aortic valve disorders Imbalance Abnormality of gait documented in this encounter Care Teams Street Openings Inspector Relationship Specialty Start Date End Date Светлана Diaz MD [address] [facility] [place] [address] PCP - General Internal Medicine 10/27/23 documented as of this encounter
[2023-11-05] MEDS ORDERED: PROPOFOL IV EMULSION 10 MG/ML 20 ML VIAL IV ONE (07:12)
[2023-11-05] MEDS ORDERED: ONDANSETRON INJ 2 MG/ML 2 ML VIAL ONE (07:12)
[2023-11-05] MEDS ORDERED: LIDOCAINE 2% 2 ML VIAL/AMP(20MG/ML) INFIL ONE (07:12)
[2023-11-05] MEDS ORDERED: fentaNYL citrate PF 100 MCG/2 ML VIAL ONE (07:13)
--- NOTE | 2023-11-05 07:22 | Anesthesiology Consultation ---
Date of Service November 05, 2023 Assessment & Plan Chart Review Chart Review: Acceptable Risk for Surgery History Surgery Operation Date: 11/05/23 07:30 Proposed Procedures p Left Hip Hemiarthroplasty - Roldan Monroe DO Height/Weight Height: 5 ft 10 in Weight: 72.6 kg Allergies Allergy/AdvReac Type Severity Reaction Status Date / Time meloxicam Allergy Mild RASH Verified 10/25/23 18:54 hydrochlorothiazide AdvReac Severe PANCREATITI Verified 10/25/23 18:54 S morphine AdvReac Severe convulsions Verified 10/25/23 18:54 gabapentin AdvReac Intermediate Fainting Verified 10/25/23 18:54 Medications Home Medications Medication Instructions Recorded Confirmed Last Taken tamsulosin 0.4 mg capsule (Flomax) 0.4 mg PO HS 11/11/18 11/04/23 10/24/23 cholecalciferol (vitamin D3) 50 50 mcg PO QAM 04/24/21 11/04/23 10/25/23 mcg (2,000 unit) capsule (Vitamin D3) acetaminophen 325 mg tablet 650 mg PO Q6H PRN FEVER/PAIN 05/13/23 11/04/23 Unknown (Tylenol) acetaminophen 500 mg tablet 1,000 mg PO BID 05/13/23 11/04/23 10/25/23 08:30 hydrocortisone 1 % topical cream 1 applic topical QID 05/13/23 11/04/23 10/25/23 17:00 pantoprazole 40 mg tablet,delayed 40 mg PO QAM gastric erosions 05/13/23 11/04/23 10/25/23 release (Protonix) polyethylene glycol 3350 17 gram 17 g PO QAM PRN Constipation 05/13/23 11/04/23 Unknown oral powder packet (Miralax) diclofenac sodium 1 % topical gel 4 g topical Q6H PRN LEFT KNEE PAIN 10/25/23 11/04/23 Unknown Active Medications Generic Name Dose Route Start Last Admin Trade Name Freq PRN Reason Stop Dose Admin Acetaminophen 1,000 mg 11/04/23 14:00 11/05/23 06:18 Acetaminophen 500 Mg Tab PO 12/04/23 13:59 1,000 mg Q8H [place] Administration Lactated Ringer's 1,000 mls @ 75 mls/hr 11/04/23 08:15 11/04/23 23:42 Lr IV 05/26/24 08:14 75 mls/hr .[id number] [place] Administration Tamsulosin HCl 0.4 mg 11/04/23 21:00 11/04/23 22:35 Tamsulosin Hcl 0.4 Mg Cap PO 12/04/23 20:59 0.4 mg HS [place]IS Administration Past Medical History Medical History Abnormal urinalysis Aortic valve sclerosis Bladder stones History of colon polyps History of COVID-19 09/11/21 @ [facility] (asymptomatic, tested prior to procedure)--no issues Hearing deficit Centrilobular emphysema Left hip pain Anemia Lung nodule Acute pancreatitis Osteoarthritis Spinal stenosis B/L LE radiculopathy History of hypertension controlled since weight loss Mandibular fracture DDD (degenerative disc disease) BPH (benign prostatic hyperplasia) Past Family History Family History Mother Liver cancer Past Surgical History Surgical History History of ERCP (~11/30/20) History of esophagogastroduodenoscopy (EGD) last 09/29/21 @ [facility] History of colonoscopy Previous back surgery History of tonsillectomy and adenoidectomy Hx of toe surgery HAD TOENAIL REMOVED IN OFFICE 12/2018 Hx of tonsillectomy Hx of hernia repair RIGHT INGUINAL History of carpal tunnel surgery RIGHT HAND History of appendectomy Social History Smoking Status: Former smoker tobacco type: cigarettes Do You Dip or Chew Tobacco: No Hx Alcohol Use: Yes Alcohol type: hard liquor alcohol intake frequency: holidays/special occasions only Hx Substance Use: No substance use type: does not use Physical Exam Vital Signs Last Vital Signs Temp 36.6 C 11/05/23 03:57 Pulse 76 11/05/23 03:57 Resp 20 11/05/23 03:57 BP 156/66 H 11/05/23 03:57 Pulse Ox 92 11/05/23 03:57 O2 Del Method Oxymask 11/05/23 03:57 O2 Flow Rate 3 11/05/23 03:57 Testing Laboratory Results 11/05/23 03:15 11/05/23 03:15 PT 11.2 Seconds (9.0-12.0) 11/04/23 07:45 INR 1.0 (0.9-1.1) 11/04/23 07:45 APTT 27 Seconds (21-31) 11/04/23 07:45 Urine Color Yellow 11/04/23 Unknown Urine Appearance Clear (Clear) 11/04/23 Unknown Urine pH 5.0 (4.5-7.5) 11/04/23 Unknown Ur Specific [place] 1.017 (1.000-1.030) 11/04/23 Unknown Urine Protein Trace (Negative) H 11/04/23 Unknown Urine Glucose (UA) Negative (Negative) 11/04/23 Unknown Urine Ketones Negative (Negative) 11/04/23 Unknown Urine Nitrite Negative (Negative) 11/04/23 Unknown Ur Leukocyte Esterase 2+ (Negative) H 11/04/23 Unknown Urine WBC (Auto) >50 /hpf (0-5) H 11/04/23 Unknown Urine RBC (Auto) 0-2 /hpf (0-2) 11/04/23 Unknown U Hyaline Cast (Auto) 0-2 /lpf (0-2) 11/04/23 Unknown U Epithel Cells (Auto) 0-2 /hpf (0-2) 11/04/23 Unknown Urine Bacteria (Auto) None Seen (None Seen) 11/04/23 Unknown Electrocardiogram Date: 11/04/23 Findings: + 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
[2023-11-05] MEDS ORDERED: ROPIVACAINE 0.5% 5 MG/ML 30 ML VIAL ONE (07:41)
[2023-11-05] MEDS ORDERED: ATROPINE SULFATE 0.1 MG/ML 10ML SYR IV PRN (07:44)
[2023-11-05] MEDS ORDERED: ePHEDrine sulfate 50 MG/ML AMP IV PRN (07:44)
[2023-11-05] MEDS ORDERED: ONDANSETRON INJ 2 MG/ML 2 ML VIAL IV PRN (07:44)
[2023-11-05] MEDS ORDERED: fentaNYL citrate PF 100 MCG/2 ML VIAL IV PRN (07:44)
--- NOTE | 2023-11-05 07:57 | History & Physical Bridge Note ---
Date of Service November 05, 2023 History & Physical Bridge Note I have examined the patient, reviewed the History & Physical and in the interval since the performance of the History & Physical I have noted the following changes of clinical significance: no changes noted met with the patient. We had a lengthy discussion regarding risk benefits potential complications of left hip hemiarthroplasty for his displaced left femoral neck fracture. These include but are not limited to: Infection, neurovascular injury, DVT, fracture, dislocation, leg length and need for future surgery. After reviewing these he elected to proceed with surgical intervention and written consent was obtained.
[2023-11-05] MEDS: ceFAZolin 2000MG 2,000 MG/15 ML SYR IV ONE (08:25)
[2023-11-05] MEDS ORDERED: ceFAZolin 330 MG/ML 1 GM VIAL ONE (08:31)
[2023-11-05] MEDS: THROMBIN FOR SOLN 20000 UNIT KIT ONE (08:56)
[2023-11-05] MEDS: BUPIVACAINE 0.25% PF 30 ML VIAL ONE (08:56)
--- NOTE | 2023-11-05 09:40 | Orthopedic Consultation ---
Date of Consultation November 05, 2023 Assessment & Plan (1) Closed fracture of left hip: 88-year-old male with displaced left femoral neck fracture N.p.o. Pain control Nonweightbearing left lower extremity Bedrest Medical management Plan for OR for left hip hemiarthroplasty History of Present Illness Reason for Consultation: Displaced left femoral neck fracture Attending Physician: Noam Alexander MD History of Present Illness 88-year-old male presenting after sustaining ground-level fall with a chief complaint of left hip pain and inability to ambulate. In the emergency department he was found of a displaced left femoral neck fracture. Patient was admitted to medical service and orthopedics was consulted for operative management Allergies Allergy/AdvReac Type Severity Reaction Status Date / Time meloxicam Allergy Mild RASH Verified 10/25/23 18:54 hydrochlorothiazide AdvReac Severe PANCREATITI Verified 10/25/23 18:54 S morphine AdvReac Severe convulsions Verified 10/25/23 18:54 gabapentin AdvReac Intermediate Fainting Verified 10/25/23 18:54 Home Medications Medication Instructions Recorded Confirmed Type tamsulosin 0.4 mg capsule (Flomax) 0.4 mg PO HS 11/11/18 11/04/23 History cholecalciferol (vitamin D3) 50 50 mcg PO QAM 04/24/21 11/04/23 History mcg (2,000 unit) capsule (Vitamin D3) acetaminophen 325 mg tablet 650 mg PO Q6H PRN FEVER/PAIN 05/13/23 11/04/23 History (Tylenol) acetaminophen 500 mg tablet 1,000 mg PO BID 05/13/23 11/04/23 History hydrocortisone 1 % topical cream 1 applic topical QID 05/13/23 11/04/23 History pantoprazole 40 mg tablet,delayed 40 mg PO QAM gastric erosions 05/13/23 11/04/23 History release (Protonix) polyethylene glycol 3350 17 gram 17 g PO QAM PRN Constipation 05/13/23 11/04/23 History oral powder packet (Miralax) diclofenac sodium 1 % topical gel 4 g topical Q6H PRN LEFT KNEE PAIN 10/25/23 11/04/23 History Patient History Medical History Abnormal urinalysis Aortic valve sclerosis Bladder stones History of colon polyps History of COVID-19 09/11/21 @ [facility] (asymptomatic, tested prior to procedure)--no issues Hearing deficit Centrilobular emphysema Left hip pain Anemia Lung nodule Acute pancreatitis Osteoarthritis Spinal stenosis B/L LE radiculopathy History of hypertension controlled since weight loss Mandibular fracture DDD (degenerative disc disease) BPH (benign prostatic hyperplasia) Surgical History History of ERCP (~11/30/20) History of esophagogastroduodenoscopy (EGD) last 09/29/21 @ [place] History of colonoscopy Previous back surgery History of tonsillectomy and adenoidectomy Hx of toe surgery HAD TOENAIL REMOVED IN OFFICE 12/2018 Hx of tonsillectomy Hx of hernia repair RIGHT INGUINAL History of carpal tunnel surgery RIGHT HAND History of appendectomy Family History Mother Liver cancer Social History Smoking Status: Former smoker Tobacco Type: Cigarettes Second Hand Exposure: No; Do You Dip or Chew Tobacco: No; Hx Alcohol Use: Yes Alcohol type: hard liquor Hx Substance Use: No Preferred Language: Turkish Communication Ability: Effective Communication Ability Comment: pt is NEZ PERCE Visual Impairment: No Limitations Home Aid Required: No Beliefs That Will Affect Care: None marital status: Current Living Situation: Spouse and Personal Care Facility Current Living Situation Comment: Lives at [facility] w/ Ibeth Feels Safe at Home: Yes Safety Concerns: Feels Safe At This Time Assistive Devices: Denture - Upper and Walker Physical Exam Constitutional: resting in bed, AAOx3 Musculoskeletal: LLE + logroll, unable to SLR - silt s/spn/dpn/t/s - fires ta/ehl/gsc + dp/pt Results & Data Vital Signs (Past 12 Hours) Vital Signs Temp Pulse Pulse Resp BP Pulse Ox O2 Del Method 11/05/23 07:38 69 11/05/23 07:24 36.7 C 68 18 133/64 91 Nasal Cannula 11/05/23 03:57 36.6 C 76 20 156/66 H 92 Oxymask 11/05/23 03:06 72 11/05/23 01:15 Oxymask O2 Flow Rate 11/05/23 07:38 11/05/23 07:24 4 11/05/23 03:57 3 11/05/23 03:06 11/05/23 01:15 4 Diagnostic Findings Displaced left femoral neck fracture (1) Closed fracture of left hip Encounter type: initial encounter Qualified Code(s): S72.002A - Fracture of unspecified part of neck of left femur, initial encounter for closed fracture
--- NOTE | 2023-11-05 09:41 | Post Operative Brief Note ---
Immediate Post Op Note v1 Date of Surgery November 05, 2023 Pre & Post Diagnosis Operation Date: 11/05/23 07:30 Pre-Op Diagnosis: Left hip fracture Post-Op Diagnosis: Left hip fracture I identified the patient and participated in the time-out.: Yes Procedure Operation Date: 11/05/23 07:30 Actual Procedures p Left Hip Hemiarthroplasty(Left) - Roldan Monroe DO Surgeon Roldan Monroe DO Employment Attorney none Estimated Blood Loss 75 Findings Consistent with Post-Op Diagnosis see dictation Drains Cannon Catheter (intact from prior to entering surgical area ) Complications none
--- NOTE | 2023-11-05 09:47 | Operative Report ---
Post Operative Report Pre & Post Diagnosis Operation Date: 11/05/23 07:30 Pre-Op Diagnosis: Left hip fracture Post-Op Diagnosis: Left hip fracture I identified the patient and participated in the time-out.: Yes Procedure Operation Date: 11/05/23 07:30 Actual Procedures p Left Hip Hemiarthroplasty(Left) - Roldan Monroe DO Surgeon Roldan Monroe, Park Manager none Estimated Blood Loss 75 Findings Consistent with Post-Op Diagnosis See dictation Specimens Femoral head Complications None Indications 88-year-old male presenting after sustaining ground-level fall onto his left hip. He noted pain and inability to ambulate. In the emergency department he was found to have a displaced left femoral neck fracture. Preoperatively I did lengthy discussion with the patient regarding risk benefits potential complications of left hip hemiarthroplasty for his displaced left femoral neck fracture. After reviewing these he elected to proceed with surgical intervention and written consent was obtained. Description of Procedure Implants: Bryon Avenir femoral stem size 6.5 high offset, 28 mm +0 cobalt chrome head, 51 mm outer bipolar head Procedure: Patient was properly marked and identified in the preoperative holding area. He received antibiotics per protocol. Patient was taken back to the operative suite where he received anesthesia. He was positioned in the lateral decubitus position with the left hip facing upwards. He was then prepped and draped in standard orthopedic fashion a timeout was then performed. Posterior lateral incision overlying the trochanter was then made with a s calpel. Electrocautery was used to dissect through the subcutaneous tissue down to the IT band and gluteal fascia which was then split in line with the incision. Charnley retractor was then placed. Short external rotators were then identified and tagged and reflected off the posterior capsule. T capsulotomy was then performed. Gush of fracture hematoma was noted. There is noted to be a displaced left femoral neck fracture. Femoral neck osteotomy was then made approximately 1 cm above the tip of the lesser trochanter. Any residual bone fragments were then removed as well as the femoral head. Femoral head was then sized and trialing was then performed and a 51 mm bipolar head was noted to have excellent suction fit. Attention was then turned to preparation of the femoral canal. Retractors were then placed. Starting with a box osteotome followed by canal finding reamer the canal was then sequentially broached up to a size 6.5 stem. This was noted to have excellent fit and fill. Trialing was then performed. High offset neck angle with a 51 mm outer bipolar head +0 was noted to have excellent stability in flexion extension with internal and external rotation and leg lengths were noted to be satisfactory. At this the hip was successfully dislocated and all trial components were then removed. Hip was copiously irrigated using dilute Betadine solution followed by normal saline solution. Femoral stem was then impacted under visualization of the calcar. Trunnion was then irrigated and dried and a 50 mm +0 bipolar head was then inserted onto the trunnion with several brisk taps. Acetabulum was then checked for inner interposing soft tissue and bone fragments and then the hip was successfully reduced. Once again stability was assessed as well as leg lengths and range of motion all noted to be satisfactory. At this point the hip was then once again copiously irrigated using dilute Betadine solution followed by normal saline solution. T capsulotomy was then closed in a [id number] fashion using 1-0 Tycron suture. Charnley retractor was then removed and the IT band was closed in a [id number] fashion using combination of 1-0 Tycron suture followed by a running oh strata fix suture. Local anesthetic was then injected into the subcutaneous tissue. Subcutaneous tissues were then closed using combination of 2-0 Vicryl followed by running 2 oh STRATAFIX suture. Brian were then used to close the skin followed by sterile Silverlon dressing. The patient tolerated procedure well and was taken recovery room in hemodynamically stable condition. I attest to the content of the Intraoperative Record and any orders documented therein. Any exceptions are noted below.
--- NOTE | 2023-11-05 10:04 | Anesthesiology Progress Note ---
Date of Service November 05, 2023 Anesthesia Post Procedure Vital Signs Vital Signs: Temp Pulse Pulse Pulse Resp BP Pulse Ox 11/05/23 10:00 36.5 C 65 16 119/56 L 95 11/05/23 09:50 63 14 116/49 L 97 11/05/23 09:40 36.4 C L 78 12 112/57 L 96 11/05/23 07:38 69 11/05/23 07:24 36.7 C 68 18 133/64 91 11/05/23 03:57 36.6 C 76 20 156/66 H 92 11/05/23 03:06 72 11/05/23 01:15 11/04/23 21:35 74 11/04/23 21:20 36.7 C 72 14 160/73 H 93 11/04/23 19:14 61 18 138/50 L 98 11/04/23 17:17 64 19 140/96 94 11/04/23 15:55 66 19 136/63 92 11/04/23 15:46 11/04/23 13:40 88 19 152/83 H 92 11/04/23 12:15 82 11/04/23 10:57 72 19 167/89 H 97 Pulse Ox O2 Del Method O2 Del Method O2 Flow Rate O2 Flow Rate 11/05/23 10:00 Oxymask 3 11/05/23 09:50 Oxymask 6 11/05/23 09:40 Oxymask 10 11/05/23 07:38 11/05/23 07:24 Nasal Cannula 4 11/05/23 03:57 Oxymask 3 11/05/23 03:06 11/05/23 01:15 Oxymask 4 11/04/23 21:35 11/04/23 21:20 Oxymask 3 11/04/23 19:14 Nasal Cannula 4 11/04/23 17:17 Nasal Cannula 4 11/04/23 15:55 Nasal Cannula 4 11/04/23 15:46 91 Nasal Cannula 4 11/04/23 13:40 Room Air 11/04/23 12:15 11/04/23 10:57 Nasal Cannula 2 Pain Intensity Left Hip: Pain Intensity: 10 Transfer of Care Handoff Completed per policy Notes Mental Status: alert / awake / arousable Patient Amnestic to Procedure: Yes Nausea / Vomiting: adequately controlled Pain: adequately controlled Airway Patency, RR, SpO2: stable & adequate BP & HR: stable & adequate Hydration State: stable & adequate Neuraxial Anesthesia: was administered and sensory block is resolving Anesthetic Complications: no major complications apparent
[2023-11-05] MEDS: CHOLECALCIFEROL 25 MCG (1000 UNITS) TAB PO SCH (10:29)
[2023-11-05] MEDS: PANTOprazole 40 MG TAB PO SCH (10:29)
--- NOTE | 2023-11-05 10:30 | XRay Report ---
XR hip 1V LT w pelvis CLINICAL HISTORY: Postoperative evaluation. COMPARISON: Left hip radiographs November 04, 2023. FINDINGS: Alignment of the left hip arthroplasty is anatomic. There is no periprosthetic fracture or unexpected radiopaque foreign body. Skin marissa are noted. There are no fractures within the pelvis or right hip. Prostatic calcifications are incidentally noted. IMPRESSION: Expected findings following left hip arthroplasty. ACT 112: Negative or not required by law. Electronically signed by: Keshawn Mckeon M.D. 11/05/2023 10:29 AM
[2023-11-05] MEDS: SODIUM CHLORIDE 0.9% 1,000 ML IV SCH (10:43)
[2023-11-05] MEDS: oxyCODONE HCL IR 5 MG TAB (IMMEDIATE RELEASE) PO PRN (13:51)
[2023-11-05] MEDS: HYDROmorphone INJ 0.5 MG/0.5 ML SYR IV PRN (14:36)
--- NOTE | 2023-11-05 15:02 | Hospitalist Progress Note ---
Date of Service November 05, 2023 Assessment & Plan (1) Closed fracture of left hip: Plan: Fall with hip fracture. This patient has a h/o falls with admissions for trauma secondary to this. No precipitating causes. Appreciate Ortho input and recommendation Status post left hip hemiarthroplasty on 11/05/2023 Remains medically stable following surgery and complains today of numbness involving the legs due to epidural Pain management with scheduled tylenol and narcotics as needed for breakthrough pain Has been requiring 2 L to maintain saturation Otherwise remains hemodynamically stable Recent UTI Per daughter, he completed his antibiotic course for recent UTI. Pt denies any UTI symptoms, fevers or chills. No antibiotics necessary at this time. . BP slightly elevated likely a result of the pain. No h/o VTE per patient reports, also no history of issues with anesthesia in the past. He denies chest pain, shortness of breath. 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 Proceed to surgery, if recommended, without further workup. (2) Fall: Plan: PT/OT consults deferred to ortho post operatively. The patient ambulates with a walker and his daughter reports that he will be getting a new design walker with a seat next week. (3) Centrilobular emphysema: Plan: Chronic, stable. No hypoxia, normal breathing patterns, clear lungs to auscultation. Not on inhaler therapy per records review. (4) BPH (benign prostatic hyperplasia): Plan: chronic, stable. Cont tamsulosin per home regimen. (5) DDD (degenerative disc disease): Plan: chronic back pain. Pt reports lower back pain today likely related to the fall, but he cannot given any history on this pain. Daughter reports patient had back pain last week. There is no CVA tenderness. Will obtain CT L-spine. Cont supportive care with pain medications. DVT proph-held preoperatively, SCDs Full Code confirmed with patient on admission Dispo-to Labels That Talk. Admission and Anticipated Discharge Date Admission Date: November 04, 2023 Subjective 11/05/2023 The patient was seen and examined in medical telemetry unit He is status post left hip hemiarthroplasty Complains today of numbness in the legs and pleasantly confused following surgery Denies any acute symptoms Review of Systems Review of Systems: Unobtainable due to cognitive status Physical Exam Physical Exam: Lying in bed without any acute distress Constitutional: well developed, well nourished, + ill appearing and average body habitus Eyes: PERRL, conjunctivae normal, anicteric sclerae ENMT: external ear and nose normal, oropharynx normal Neck: trachea midline, no thyromegaly Respiratory: no respiratory distress Auscultation: lungs clear to auscultation bilaterally Cardiovascular: Rate/Rhythm: regular rate and regular rhythm; not tachycardic Heart Sounds: normal S1, normal S2 and + murmur Extremities: no edema Gastrointestinal (Abdomen): Inspection/Auscultation: normal bowel sounds; abdomen not distended Percussion/Palpation: abdomen soft; abdomen nontender Musculoskeletal: Complains of left hip pain with movement of the left lower extremity Neurologic: normal touch/pain/proprioception (Decreased both the legs due to epidural) and moves all extremities Lymphatic: no cervical or axillary lymphadenopathy Results & Data Results & Data Vital Signs (Past 12 Hours) Vital Signs Temp Pulse Pulse Pulse Resp BP Pulse Ox 11/05/23 13:45 36.5 C 69 18 124/61 92 11/05/23 11:45 36.5 C 66 18 133/65 90 11/05/23 11:15 36.3 C L 64 18 121/65 95 11/05/23 10:54 11/05/23 10:48 36.6 C 59 L 18 127/70 97 11/05/23 10:35 36.5 C 65 18 124/65 95 11/05/23 10:10 67 18 119/56 L 92 11/05/23 10:00 36.5 C 65 16 119/56 L 95 11/05/23 09:50 63 14 116/49 L 97 11/05/23 09:40 36.4 C L 78 12 112/57 L 96 11/05/23 07:38 69 11/05/23 07:24 36.7 C 68 18 133/64 91 11/05/23 03:57 36.6 C 76 20 156/66 H 92 11/05/23 03:06 72 O2 Del Method O2 Flow Rate 11/05/23 13:45 Nasal Cannula 2 11/05/23 11:45 Oxymask 2 11/05/23 11:15 Oxymask 2 11/05/23 10:54 Oxymask 4 11/05/23 10:48 Oxymask 4 11/05/23 10:35 Oxymask 4 11/05/23 10:10 Oxymask 3 11/05/23 10:00 Oxymask 3 11/05/23 09:50 Oxymask 6 11/05/23 09:40 Oxymask 10 11/05/23 07:38 11/05/23 07:24 Nasal Cannula 4 11/05/23 03:57 Oxymask 3 11/05/23 03:06 Laboratory Results Short CBC 11/05/23 Range/Units 03:15 WBC 13.34 H (4.8-10.8) K/ul Hgb 12.7 L (14.0-18.0) g/dl Hct 39.0 L (42.0-52.0) % Plt Count 251 (130-400) K/uL BMP 11/05/23 03:15 Sodium 140 Potassium 3.7 Chloride 106 Carbon Dioxide 28 BUN 13 Creatinine 0.60 Glucose 114 H Calcium 9.2 Medications Administered Current Inpatient Medications Acetaminophen (Acetaminophen 500 Mg Tab) 1,000 mg PO Q8H [place] Stop: 12/04/23 13:59 Last Admin: 11/05/23 13:07 Dose: 1,000 mg Aspirin (Aspirin 81 Mg Ectab) 81 mg PO BID [place] Stop: 12/05/23 20:59 Atropine Sulfate (Atropine Sulfate 0.1 Mg/Ml 10ml Syr) 0.5 mg IV Q1M PRN PRN Reason: PACU Use-HR<40 &/or Bradycardi Stop: 11/05/23 15:44 Ephedrine Sulfate (Ephedrine Sulfate 50 Mg/Ml Amp) 5 mg IV Q5M PRN PRN Reason: PACU Use Only-SBP<90 mmHg Stop: 11/05/23 15:44 Fentanyl Citrate (Fentanyl Citrate Pf 100 Mcg/2 Ml Vial) 25 mcg IV Q5M PRN PRN Reason: PACU Use Only-Pain Stop: 11/05/23 15:45 Hydromorphone HCl (Hydromorphone Inj 0.5 Mg/0.5 Ml Syr) 0.5 mg IV Q4H PRN PRN Reason: Severe Pain (Rating 7,8,9,10) Stop: 11/18/23 08:13 Last Admin: 11/05/23 14:36 Dose: 0.5 mg Cefazolin Sodium (Ancef 2000mg) 2,000 mg in 15 mls @ 3.75 mls/min IV Q8H [facility]; Protocol Stop: 11/06/23 00:03 Sodium Chloride (Nss) 1,000 mls @ 80 mls/hr IV .[id number] [facility] Stop: 11/06/23 10:44 Last Admin: 11/05/23 10:43 Dose: 80 mls/hr Ondansetron HCl (Ondansetron Inj 2 Mg/Ml 2 Ml Vial) 4 mg IV Q6H PRN PRN Reason: Nausea Stop: 12/04/23 13:58 Ondansetron HCl (Ondansetron Inj 2 Mg/Ml 2 Ml Vial) 4 mg IV ONCE PRN PRN Reason: PACU Use Only-Nausea/Vomiting Stop: 11/05/23 15:45 Oxycodone HCl (Oxycodone Hcl Ir 5 Mg Tab (Immediate Release)) 5 mg PO Q6H PRN PRN Reason: Pain Stop: 11/18/23 19:20 Last Admin: 11/05/23 13:51 Dose: 5 mg Pantoprazole Sodium (Pantoprazole 40 Mg Tab) 40 mg PO QAM [facility] Stop: 12/05/23 08:59 Last Admin: 11/05/23 10:29 Dose: 40 mg Polyethylene Glycol (Polyethylene (Miralax) 17 Gm Pack) 17 gm PO DAILY PRN PRN Reason: Constipation Stop: 12/04/23 13:58 Tamsulosin HCl (Tamsulosin Hcl 0.4 Mg Cap) 0.4 mg PO HS [facility] Stop: 12/04/23 20:59 Last Admin: 11/04/23 22:35 Dose: 0.4 mg Vitamin D (Cholecalciferol 25 Mcg (1000 Units) Tab) 50 mcg PO QAM [facility] Stop: 12/05/23 08:59 Last Admin: 11/05/23 10:29 Dose: 50 mcg (1) Closed fracture of left hip Encounter type: initial encounter Qualified Code(s): S72.002A - Fracture of unspecified part of neck of left femur, initial encounter for closed fracture (2) Fall Encounter type: initial encounter Qualified Code(s): W19.XXXA - Unspecified fall, initial encounter
[2023-11-05] MEDS: ceFAZolin 2000MG 2,000 MG/15 ML SYR IV SCH (15:52)
[2023-11-05] MEDS: ASPIRIN 81 MG ECTAB PO SCH (21:19)
[2023-11-06 05:20] LABS: Basophils # (auto) 0.04 K/uL (0.00-0.20); Basophils % (auto) 0.3 %; Eosinophils # (auto) 0.15 K/uL (0.00-0.50); Hematocrit (blood only) 34.9 % (42.0-52.0); Hemoglobin 11.1 g/dl (14.0-18.0); Immature Granulocytes # (auto) 0.27 K/uL (0.01-0.20); Immature Granulocytes % (auto) 1.8 %; Lymphocytes % (auto) 2.6 %; Mean Corpuscular Hemoglobin 29.1 pg (25.0-34.0); Mean Corpuscular Hgb Conc 31.8 g/dL (32.0-36.0); Mean Corpuscular Volume 91.6 fL (80.0-100.0); Monocytes # (auto) 0.93 K/uL (0.11-0.59); Monocytes % (auto) 6.1 %; Neutrophils # (auto) 13.51 K/uL (1.40-6.50); Neutrophils % (auto) 88.2 %; Platelet Count 207 K/uL (130-400); RDW Coefficient of Variation 14.4 % (11.5-14.5); RDW Standard Deviation 48.5 fL (36.4-46.3); Red Blood Count 3.81 M/uL (4.70-6.10)
[2023-11-06 05:30] LABS: BUN Creatinine Ratio 20.3 (10-20); Calcium 8.7 mg/dl (8.6-10.3); Creatinine Clr Calc Pharmacy 90.6 ml/min; Est GFR (African American) 105.5 ml/min; Magnesium 1.7 mg/dl (1.7-2.4); Potassium 3.7 mmol/L (3.5-5.1)
--- NOTE | 2023-11-06 10:02 | Orthopedic Progress Note ---
Date of Service November 06, 2023 Assessment & Plan (1) Closed fracture of left hip: Plan: 88-year-old male Status post left hip hemiarthroplasty postoperative day #1 Pain control WBAT left lower extremity PT/OT Medical management DVT PPx Stable from orthopedic standpoint. We will sign off at this time. Patient may follow-up as an outpatient in 2 weeks. Admission and Anticipated Discharge Date Admission Date: November 04, 2023 Subjective PT S+E, NAEO, pain controlled Physical Exam Constitutional: NAD Musculoskeletal: LLE - dressing c/d/i - silt s/spn/dpn/t/s - fires ta/ehl/gsc + dp/pt Results & Data Vital Signs (Past 12 Hours) Vital Signs Temp Pulse Pulse Resp BP Pulse Ox O2 Del Method 11/06/23 07:33 38.2 C H 91 H 18 148/68 H 91 Nasal Cannula 11/06/23 07:02 86 11/06/23 02:53 36.8 C 89 20 146/66 H 91 Nasal Cannula 11/05/23 23:58 88 L Nasal Cannula 11/05/23 23:21 36.6 C 95 H 20 156/66 H 88 L Oxymask O2 Flow Rate 11/06/23 07:33 5 11/06/23 07:02 11/06/23 02:53 5 11/05/23 23:58 5 11/05/23 23:21 4 (1) Closed fracture of left hip Encounter type: initial encounter Qualified Code(s): S72.002A - Fracture of unspecified part of neck of left femur, initial encounter for closed fracture
[2023-11-06] MEDS ORDERED: ALBUTEROL 0.083% NEBU SOLN 3 ML VIAL NEB PRN (10:51)
--- NOTE | 2023-11-06 10:51 | Hospitalist Progress Note ---
Date of Service November 06, 2023 Assessment & Plan (1) Closed fracture of left hip: Plan: Fall with hip fracture. This patient has a h/o falls with admissions for trauma secondary to this. No precipitating causes. Appreciate Ortho input and recommendation Status post left hip hemiarthroplasty on 11/05/2023 Remains medically stable following surgery and complains today of numbness involving the legs due to epidural Pain management with scheduled tylenol and narcotics as needed for breakthrough pain Has been requiring 2 L to maintain saturation Remains stable but requiring more oxygen Has been requiring 5 L to maintain saturation Recent UTI Per daughter, he completed his antibiotic course for recent UTI. Pt denies any UTI symptoms, fevers or chills. No antibiotics necessary at this time. . BP slightly elevated likely a result of the pain. No h/o VTE per patient reports, also no history of issues with anesthesia in the past. He denies chest pain, shortness of breath. 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 Proceed to surgery, if recommended, without further workup. Urine culture is growing Shiela (2) Fall: Plan: PT/OT consults deferred to ortho post operatively. The patient ambulates with a walker and his daughter reports that he will be getting a new design walker with a seat next week. (3) Centrilobular emphysema: Plan: Chronic, stable. No hypoxia, normal breathing patterns, clear lungs to auscultation. Not on inhaler therapy per records review. Requiring 5 L to maintain saturation Will try nebulized bronchodilators as needed (4) BPH (benign prostatic hyperplasia): Plan: chronic, stable. Cont tamsulosin per home regimen. (5) DDD (degenerative disc disease): Plan: chronic back pain. Pt reports lower back pain today likely related to the fall, but he cannot given any history on this pain. Daughter reports patient had back pain last week. There is no CVA tenderness. Will obtain CT L-spine. Cont supportive care with pain medications. DVT proph-held preoperatively, SCDs Full Code confirmed with patient on admission Dispo-to [facility]. Admission and Anticipated Discharge Date Admission Date: November 04, 2023 Subjective 11/05/2023 The patient was seen and examined in medical telemetry unit He is status post left hip hemiarthroplasty Complains today of numbness in the legs and pleasantly confused following surgery Denies any acute symptoms 11/06/2023 The patient was seen and examined in medical telemetry unit He has had minimal physical therapy today Lying in bed now without any significant symptoms He was noted to have a temperature of 38.2 Review of Systems Review of Systems: All systems reviewed and are unremarkable except as noted below Physical Exam Physical Exam: Lying in bed without any acute distress Constitutional: well developed, well nourished, + ill appearing and average body habitus Eyes: PERRL, conjunctivae normal, anicteric sclerae ENMT: external ear and nose normal, oropharynx normal Neck: trachea midline, no thyromegaly Respiratory: no respiratory distress Auscultation: lungs clear to auscultation bilaterally Cardiovascular: Rate/Rhythm: regular rate and regular rhythm; not tachycardic Heart Sounds: normal S1, normal S2 and + murmur Extremities: no edema Gastrointestinal (Abdomen): Inspection/Auscultation: normal bowel sounds; abdomen not distended Percussion/Palpation: abdomen soft; abdomen nontender Musculoskeletal: Left hip pain with movement of the left lower extremity Neurologic: normal touch/pain/proprioception (Decreased both the legs due to epidural) and moves all extremities Lymphatic: no cervical or axillary lymphadenopathy Results & Data Results & Data Vital Signs (Past 12 Hours) Vital Signs Temp Pulse Pulse Resp BP Pulse Ox O2 Del Method 11/06/23 07:33 38.2 C H 91 H 18 148/68 H 91 Nasal Cannula 11/06/23 07:02 86 11/06/23 02:53 36.8 C 89 20 146/66 H 91 Nasal Cannula 11/05/23 23:58 88 L Nasal Cannula 11/05/23 23:21 36.6 C 95 H 20 156/66 H 88 L Oxymask O2 Flow Rate 11/06/23 07:33 5 11/06/23 07:02 11/06/23 02:53 5 11/05/23 23:58 5 11/05/23 23:21 4 Laboratory Results Short CBC 11/06/23 Range/Units 04: WBC 15.30 H (4.8-10.8) K/ul Hgb 11.1 L (14.0-18.0) g/dl Hct 34.9 L (42.0-52.0) % Plt Count 207 (130-400) K/uL BMP 11/06/23 04:24 Sodium 137 Potassium 3.7 Chloride 106 Carbon Dioxide 26 BUN 12 Creatinine 0.59 L Glucose 129 H Calcium 8.7 Medications Administered Current Inpatient Medications Acetaminophen (Acetaminophen 500 Mg Tab) 1,000 mg PO Q8H [facility] Stop: 12/04/23 13:59 Last Admin: 11/06/23 05:17 Dose: 1,000 mg Aspirin (Aspirin 81 Mg Ectab) 81 mg PO BID [facility] Stop: 12/05/23 20:59 Last Admin: 11/06/23 07:39 Dose: 81 mg Hydromorphone HCl (Hydromorphone Inj 0.5 Mg/0.5 Ml Syr) 0.5 mg IV Q4H PRN PRN Reason: Severe Pain (Rating 7,8,9,10) Stop: 11/18/23 08:13 Last Admin: 11/05/23 14:36 Dose: 0.5 mg Sodium Chloride (Nss) 1,000 mls @ 80 mls/hr IV .[id number] [facility] Stop: 11/06/23 10:44 Last Admin: 11/05/23 23:03 Dose: 80 mls/hr Ondansetron HCl (Ondansetron Inj 2 Mg/Ml 2 Ml Vial) 4 mg IV Q6H PRN PRN Reason: Nausea Stop: 12/04/23 13:58 Oxycodone HCl (Oxycodone Hcl Ir 5 Mg Tab (Immediate Release)) 5 mg PO Q6H PRN PRN Reason: Pain Stop: 11/18/23 19:20 Last Admin: 11/06/23 05:17 Dose: 5 mg Pantoprazole Sodium (Pantoprazole 40 Mg Tab) 40 mg PO QAM [facility] Stop: 12/05/23 08:59 Last Admin: 11/06/23 07:41 Dose: 40 mg Polyethylene Glycol (Polyethylene (Miralax) 17 Gm Pack) 17 gm PO DAILY PRN PRN Reason: Constipation Stop: 12/04/23 13:58 Tamsulosin HCl (Tamsulosin Hcl 0.4 Mg Cap) 0.4 mg PO HS [facility] Stop: 12/04/23 20:59 Last Admin: 11/05/23 21:19 Dose: 0.4 mg Vitamin D (Cholecalciferol 25 Mcg (1000 Units) Tab) 50 mcg PO QAM [facility] Stop: 12/05/23 08:59 Last Admin: 11/06/23 07:40 Dose: 50 mcg (1) Closed fracture of left hip Encounter type: initial encounter Qualified Code(s): S72.002A - Fracture of unspecified part of neck of left femur, initial encounter for closed fracture (2) Fall Encounter type: initial encounter Qualified Code(s): W19.XXXA - Unspecified fall, initial encounter
[2023-11-06] MEDS ORDERED: POTASSIUM PHOS 3 MMOL/1 ML INFUSION IV STA (10:52)
[2023-11-06] MEDS: POTASSIUM PHOSPHATE 21 MMOL in SODIUM CHLORIDE 0.9% 500 ML IV ONE (11:32)
[2023-11-06] MEDS ORDERED: Nursing to Pharmacy Communication SCH (20:00)
[2023-11-07 04:47] LABS: Basophils # (auto) 0.07 K/uL (0.00-0.20); Basophils % (auto) 0.4 %; Eosinophils # (auto) 0.33 K/uL (0.00-0.50); Eosinophils % (auto) 1.9 %; Hematocrit (blood only) 35.7 % (42.0-52.0); Hemoglobin 11.6 g/dl (14.0-18.0); Immature Granulocytes # (auto) 0.13 K/uL (0.01-0.20); Immature Granulocytes % (auto) 0.7 %; Lymphocytes # (auto) 0.83 K/uL (1.20-3.40); Lymphocytes % (auto) 4.8 %; Mean Corpuscular Hemoglobin 29.7 pg (25.0-34.0); Mean Corpuscular Hgb Conc 32.5 g/dL (32.0-36.0); Mean Corpuscular Volume 91.3 fL (80.0-100.0); Monocytes # (auto) 0.88 K/uL (0.11-0.59); Neutrophils # (auto) 15.21 K/uL (1.40-6.50); Neutrophils % (auto) 87.2 %; Platelet Count 225 K/uL (130-400); RDW Coefficient of Variation 14.5 % (11.5-14.5); RDW Standard Deviation 48.3 fL (36.4-46.3); Red Blood Count 3.91 M/uL (4.70-6.10); White Blood Count 17.45 K/ul (4.8-10.8)
[2023-11-07 05:05] LABS: BUN Creatinine Ratio 20.7 (10-20); Calcium 8.5 mg/dl (8.6-10.3); Creatinine Clr Calc Pharmacy 92.1 ml/min; Est GFR (African American) 106.2 ml/min; Est GFR (Non-African American) 91.7 ml/min; Phosphorus 1.7 mg/dl (2.5-4.9); Potassium 3.8 mmol/L (3.5-5.1)
[2023-11-07] MEDS ORDERED: SODIUM PHOSPHATE 3 MMOL/1 ML 5 ML VIAL IV ONE (08:30)
[2023-11-07] MEDS: SODIUM PHOSPHATE 24 MMOL in SODIUM CHLORIDE 0.9% 500 ML IV ONE (09:27)
--- NOTE | 2023-11-07 14:17 | Hospitalist Progress Note ---
Date of Service November 07, 2023 Assessment & Plan (1) Closed fracture of left hip: Plan: Fall with hip fracture. This patient has a h/o falls with admissions for trauma secondary to this. No precipitating causes. Appreciate Ortho input and recommendation Status post left hip hemiarthroplasty on 11/05/2023 Remains medically stable following surgery and complains today of numbness involving the legs due to epidural Pain management with scheduled tylenol and narcotics as needed for breakthrough pain Has been requiring 2 L to maintain saturation Remains stable but requiring more oxygen Has been requiring 5 L to maintain saturation Clinically much better and will need to continue with the physical therapy Awaiting placement Recent UTI Per daughter, he completed his antibiotic course for recent UTI. Pt denies any UTI symptoms, fevers or chills. No antibiotics necessary at this time. . BP slightly elevated likely a result of the pain. No h/o VTE per patient reports, also no history of issues with anesthesia in the past. He denies chest pain, shortness of breath. 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 Proceed to surgery, if recommended, without further workup. Urine culture is growing Shiela No need to have any antibiotic or antifungal Hypophosphatemia Will replace and recheck (2) Fall: Plan: PT/OT consults deferred to ortho post operatively. The patient ambulates with a walker and his daughter reports that he will be getting a new design walker with a seat next week. Continue with the PT and OT and will need placement (3) Centrilobular emphysema: Plan: Chronic, stable. No hypoxia, normal breathing patterns, clear lungs to auscultation. Not on inhaler therapy per records review. Requiring 5 L to maintain saturation Will try nebulized bronchodilators as needed Does not have any problems shortness of breath (4) BPH (benign prostatic hyperplasia): Plan: chronic, stable. Cont tamsulosin per home regimen. (5) DDD (degenerative disc disease): Plan: chronic back pain. Pt reports lower back pain today likely related to the fall, but he cannot given any history on this pain. Daughter reports patient had back pain last week. There is no CVA tenderness. Will obtain CT L-spine. Cont supportive care with pain medications. DVT proph-held preoperatively, SCDs Full Code confirmed with patient on admission Dispo-to [facility] Admission and Anticipated Discharge Date Admission Date: November 04, 2023 Subjective 11/05/2023 The patient was seen and examined in medical telemetry unit He is status post left hip hemiarthroplasty Complains today of numbness in the legs and pleasantly confused following surgery Denies any acute symptoms 11/06/2023 The patient was seen and examined in medical telemetry unit He has had minimal physical therapy today Lying in bed now without any significant symptoms He was noted to have a temperature of 38.2 11/07/2023 The patient was seen and examined in medical telemetry unit He has been feeling much better Progressing slowly with physical therapy Denies any significant symptoms Review of Systems Review of Systems: All systems reviewed and are unremarkable except as noted below Physical Exam Physical Exam: Lying in bed without any acute distress Constitutional: well developed, well nourished, + ill appearing and average body habitus Eyes: PERRL, conjunctivae normal, anicteric sclerae ENMT: external ear and nose normal, oropharynx normal Neck: trachea midline, no thyromegaly Respiratory: no respiratory distress Auscultation: lungs clear to auscultation bilaterally Cardiovascular: Rate/Rhythm: regular rate and regular rhythm; not tachycardic Heart Sounds: normal S1, normal S2 and + murmur Extremities: no edema Gastrointestinal (Abdomen): Inspection/Auscultation: normal bowel sounds; abdomen not distended Percussion/Palpation: abdomen soft; abdomen nontender Musculoskeletal: Has pain with movement of the left hip. Neurologic: normal touch/pain/proprioception (Decreased both the legs due to epidural) and moves all extremities Lymphatic: no cervical or axillary lymphadenopathy Results & Data Results & Data Vital Signs (Past 12 Hours) Vital Signs Temp Pulse Pulse Resp BP Pulse Ox O2 Del Method 11/07/23 07:52 37.1 C 75 17 132/76 95 Nasal Cannula 11/07/23 07:17 Nasal Cannula 11/07/23 07:06 84 11/07/23 03:09 36.6 C 84 20 162/69 H 91 Nasal Cannula O2 Flow Rate 11/07/23 07:52 11/07/23 07:17 5 11/07/23 07:06 11/07/23 03:09 5 Laboratory Results Short CBC 11/07/23 Range/Units 04:16 WBC 17.45 H (4.8-10.8) K/ul Hgb 11.6 L (14.0-18.0) g/dl Hct 35.7 L (42.0-52.0) % Plt Count 225 (130-400) K/uL BMP 11/07/23 04:16 Sodium 140 Potassium 3.8 Chloride 105 Carbon Dioxide 27 BUN 12 Creatinine 0.58 L Glucose 114 H Calcium 8.5 L Medications Administered Current Inpatient Medications Acetaminophen (Acetaminophen 500 Mg Tab) 1,000 mg PO Q8H [facility] Stop: 12/04/23 13:59 Last Admin: 11/07/23 13:30 Dose: Not Given Albuterol (Albuterol 0.083% Nebu Soln 3 Ml Vial) 2.5 mg NEB Q6H PRN; Protocol PRN Reason: Shortness Of Breath Or Wheezing Stop: 12/06/23 10:50 Aspirin (Aspirin 81 Mg Ectab) 81 mg PO BID [facility] Stop: 12/05/23 20:59 Last Admin: 11/07/23 08:14 Dose: 81 mg Hydromorphone HCl (Hydromorphone Inj 0.5 Mg/0.5 Ml Syr) 0.5 mg IV Q4H PRN PRN Reason: Severe Pain (Rating 7,8,9,10) Stop: 11/18/23 08:13 Last Admin: 11/05/23 14:36 Dose: 0.5 mg Ondansetron HCl (Ondansetron Inj 2 Mg/Ml 2 Ml Vial) 4 mg IV Q6H PRN PRN Reason: Nausea Stop: 12/04/23 13:58 Oxycodone HCl (Oxycodone Hcl Ir 5 Mg Tab (Immediate Release)) 5 mg PO Q6H PRN PRN Reason: Pain Stop: 11/18/23 19:20 Last Admin: 11/07/23 10:41 Dose: 5 mg Pantoprazole Sodium (Pantoprazole 40 Mg Tab) 40 mg PO QAM [facility] Stop: 12/05/23 08:59 Last Admin: 11/07/23 08:15 Dose: 40 mg Polyethylene Glycol (Polyethylene (Miralax) 17 Gm Pack) 17 gm PO DAILY PRN PRN Reason: Constipation Stop: 12/04/23 13:58 Tamsulosin HCl (Tamsulosin Hcl 0.4 Mg Cap) 0.4 mg PO HS [facility] Stop: 12/04/23 20:59 Last Admin: 11/06/23 20:13 Dose: 0.4 mg Vitamin D (Cholecalciferol 25 Mcg (1000 Units) Tab) 50 mcg PO QAM [facility] Stop: 12/05/23 08:59 Last Admin: 11/07/23 08:14 Dose: 50 mcg (1) Closed fracture of left hip Encounter type: initial encounter Qualified Code(s): S72.002A - Fracture of unspecified part of neck of left femur, initial encounter for closed fracture (2) Fall Encounter type: initial encounter Qualified Code(s): W19.XXXA - Unspecified fall, initial encounter
[2023-11-08 08:52] LABS: Basophils # (auto) 0.05 K/uL (0.00-0.20); Basophils % (auto) 0.3 %; Eosinophils # (auto) 0.14 K/uL (0.00-0.50); Eosinophils % (auto) 0.9 %; Hematocrit (blood only) 34.2 % (42.0-52.0); Immature Granulocytes # (auto) 0.07 K/uL (0.01-0.20); Immature Granulocytes % (auto) 0.5 %; Lymphocytes # (auto) 0.72 K/uL (1.20-3.40); Lymphocytes % (auto) 4.7 %; Mean Corpuscular Hemoglobin 29.5 pg (25.0-34.0); Mean Corpuscular Hgb Conc 32.2 g/dL (32.0-36.0); Mean Corpuscular Volume 91.7 fL (80.0-100.0); Mean Platelet Volume 9.8 fL (9.4-12.4); Monocytes # (auto) 0.76 K/uL (0.11-0.59); Monocytes % (auto) 4.9 %; Neutrophils # (auto) 13.73 K/uL (1.40-6.50); Neutrophils % (auto) 88.7 %; Platelet Count 251 K/uL (130-400); RDW Coefficient of Variation 14.5 % (11.5-14.5); RDW Standard Deviation 48.8 fL (36.4-46.3); Red Blood Count 3.73 M/uL (4.70-6.10); White Blood Count 15.47 K/ul (4.8-10.8)
--- NOTE | 2023-11-08 10:40 | XRay Report ---
XR chest 1V portable HISTORY: 88 years-old Male r/o Pneumonia COMPARISON: 10/25/2023 TECHNIQUE: AP view of the chest FINDINGS: Cardiac mediastinal and hilar silhouettes are unchanged. Atherosclerosis of the aorta. Emphysema with chronic interstitial coarsening. No pneumothorax, large pleural effusion or overt pulmonary edema. M ild linear left basilar atelectasis versus scarring. The bones appear grossly intact. IMPRESSION: Emphysema without acute process. ACT 112: Negative or not required by law. The above report was generated using voice recognition software. It may contain grammatical, syntax o r spelling errors. Electronically signed by: Roldan Gore M.D. 11/08/2023 10:38 AM
--- NOTE | 2023-11-08 16:30 | Hospitalist Progress Note ---
Date of Service November 08, 2023 Assessment & Plan (1) Closed fracture of left hip: Plan: Fall with hip fracture. This patient has a h/o falls with admissions for trauma secondary to this. No precipitating causes. Appreciate Ortho input and recommendation Status post left hip hemiarthroplasty on 11/05/2023 Remains medically stable following surgery and complains today of numbness involving the legs due to epidural Pain management with scheduled tylenol and narcotics as needed for breakthrough pain Has been requiring 2 L to maintain saturation Remains stable but requiring more oxygen Has been requiring 5 L to maintain saturation Clinically much better and will need to continue with the physical therapy Has been complaining more pain especially during physical therapy and could not tolerate it Doses of oxycodone has been increased to 10 mg every 6 hourly as needed Recent UTI Per daughter, he completed his antibiotic course for recent UTI. Pt denies any UTI symptoms, fevers or chills. No antibiotics necessary at this time. . BP slightly elevated likely a result of the pain. No h/o VTE per patient reports, also no history of issues with anesthesia in the past. He denies chest pain, shortness of breath. 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 Proceed to surgery, if recommended, without further workup. Urine culture is growing Shiela No need to have any antibiotic or antifungal Urine catheter was changed/DC'd-minimal hematuria Will send urine for culture and sensitivity Persistent leukocytosis White count remains elevated at 15,000 Chest x-ray did not show any pneumonia Remains afebrile Will start reculture urine for any infection Monitor CBC Hypophosphatemia Will replace and recheck-noted to be 1.7 on 11/08/2023 Recheck tomorrow (2) Fall: Plan: PT/OT consults deferred to ortho post operatively. The patient ambulates with a walker and his daughter reports that he will be getting a new design walker with a seat next week. Continue with the PT and OT and will need placement (3) Centrilobular emphysema: Plan: Chronic, stable. No hypoxia, normal breathing patterns, clear lungs to auscultation. Not on inhaler therapy per records review. Requiring 5 L to maintain saturation Will try nebulized bronchodilators as needed Does not have any problems shortness of breath (4) BPH (benign prostatic hyperplasia): Plan: chronic, stable. Cont tamsulosin per home regimen. (5) DDD (degenerative disc disease): Plan: chronic back pain. Pt reports lower back pain today likely related to the fall, but he cannot given any history on this pain. Daughter reports patient had back pain last week. There is no CVA tenderness. Will obtain CT L-spine. Cont supportive care with pain medications. DVT proph-held preoperatively, SCDs Full Code confirmed with patient on admission Dispo-to [employer] Admission and Anticipated Discharge Date Admission Date: November 04, 2023 Subjective 11/05/2023 The patient was seen and examined in medical telemetry unit He is status post left hip hemiarthroplasty Complains today of numbness in the legs and pleasantly confused following surgery Denies any acute symptoms 11/06/2023 The patient was seen and examined in medical telemetry unit He has had minimal physical therapy today Lying in bed now without any significant symptoms He was noted to have a temperature of 38.2 11/07/2023 The patient was seen and examined in medical telemetry unit He has been feeling much better Progressing slowly with physical therapy Denies any significant symptoms 11/08/2023 The patient was seen and examined in medical telemetry unit He has been complaining of more pain especially during physical therapy He could not do well with physical therapy today Pain medications have been increased Review of Systems Review of Systems: All systems reviewed and are unremarkable except as noted below Physical Exam Physical Exam: Lying in bed without any acute distress Constitutional: well developed, well nourished, + ill appearing and average body habitus Eyes: PERRL, conjunctivae normal, anicteric sclerae ENMT: external ear and nose normal, oropharynx normal Neck: trachea midline, no thyromegaly Respiratory: no respiratory distress Auscultation: lungs clear to auscultation bilaterally Cardiovascular: Rate/Rhythm: regular rate and regular rhythm; not tachycardic Heart Sounds: normal S1, normal S2 and + murmur Extremities: no edema Gastrointestinal (Abdomen): Inspection/Auscultation: normal bowel sounds; abdomen not distended Percussion/Palpation: abdomen soft; abdomen nontender Musculoskeletal: Pain involving the left hip with movement of the left lower extremity Neurologic: normal touch/pain/proprioception (Decreased both the legs due to epidural) and moves all extremities Lymphatic: no cervical or axillary lymphadenopathy Results & Data Results & Data Vital Signs (Past 12 Hours) Vital Signs Temp Pulse Pulse Resp BP Pulse Ox O2 Del Method 11/08/23 15:59 36.7 C 78 18 169/75 H 94 Nasal Cannula 11/08/23 15:09 81 11/08/23 11:49 36.4 C L 88 18 144/67 H 93 Nasal Cannula 11/08/23 08:17 36.3 C L 62 18 145/71 H 92 Nasal Cannula 11/08/23 07:07 Nasal Cannula 11/08/23 06:57 69 O2 Flow Rate 11/08/23 15:59 11/08/23 15:09 11/08/23 11:49 5 11/08/23 08:17 5 11/08/23 07:07 5 11/08/23 06:57 Laboratory Results Short CBC 11/08/23 Range/Units 08:28 WBC 15.47 H (4.8-10.8) K/ul Hgb 11.0 L (14.0-18.0) g/dl Hct 34.2 L (42.0-52.0) % Plt Count 251 (130-400) K/uL Medications Administered Current Inpatient Medications Acetaminophen (Acetaminophen 500 Mg Tab) 1,000 mg PO Q8H [facility] Stop: 12/04/23 13:59 Last Admin: 11/08/23 14:19 Dose: Not Given Albuterol (Albuterol 0.083% Nebu Soln 3 Ml Vial) 2.5 mg NEB Q6H PRN; Protocol PRN Reason: Shortness Of Breath Or Wheezing Stop: 12/06/23 10:50 Aspirin (Aspirin 81 Mg Ectab) 81 mg PO BID [facility] Stop: 12/05/23 20:59 Last Admin: 11/08/23 11:15 Dose: 81 mg Hydromorphone HCl (Hydromorphone Inj 0.5 Mg/0.5 Ml Syr) 0.5 mg IV Q4H PRN PRN Reason: Severe Pain (Rating 7,8,9,10) Stop: 11/18/23 08:13 Last Admin: 11/08/23 11:15 Dose: 0.5 mg Ondansetron HCl (Ondansetron Inj 2 Mg/Ml 2 Ml Vial) 4 mg IV Q6H PRN PRN Reason: Nausea Stop: 12/04/23 13:58 Oxycodone HCl (Oxycodone Hcl Ir 5 Mg Tab (Immediate Release)) 10 mg PO Q6H PRN PRN Reason: Pain Stop: 11/18/23 19:20 Pantoprazole Sodium (Pantoprazole 40 Mg Tab) 40 mg PO QAM COUNTS [facility]CLUDE 234 BEDS AT THE [facility] Stop: 12/05/23 08:59 Last Admin: 11/08/23 08:10 Dose: 40 mg Polyethylene Glycol (Polyethylene (Miralax) 17 Gm Pack) 17 gm PO DAILY PRN PRN Reason: Constipation Stop: 12/04/23 13:58 Tamsulosin HCl (Tamsulosin Hcl 0.4 Mg Cap) 0.4 mg PO HS COUNTS INCLUDE 234 BEDS AT THE [facility] Stop: 12/04/23 20:59 Last Admin: 11/07/23 20:15 Dose: 0.4 mg Vitamin D (Cholecalciferol 25 Mcg (1000 Units) Tab) 50 mcg PO QAM COUNTS INCLUDE 234 BEDS AT THE [facility] Stop: 12/05/23 08:59 Last Admin: 11/08/23 08:09 Dose: 50 mcg (1) Closed fracture of left hip Encounter type: initial encounter Qualified Code(s): S72.002A - Fracture of unspecified part of neck of left femur, initial encounter for closed fracture (2) Fall Encounter type: initial encounter Qualified Code(s): W19.XXXA - Unspecified fall, initial encounter
[2023-11-08] MEDS: oxyCODONE HCL IR 5 MG TAB (IMMEDIATE RELEASE) PO PRN (16:40)
[2023-11-09 04:37] LABS: Basophils # (auto) 0.06 K/uL (0.00-0.20); Basophils % (auto) 0.5 %; Eosinophils # (auto) 0.43 K/uL (0.00-0.50); Eosinophils % (auto) 3.7 %; Hematocrit (blood only) 32.6 % (42.0-52.0); Hemoglobin 10.5 g/dl (14.0-18.0); Immature Granulocytes # (auto) 0.05 K/uL (0.01-0.20); Immature Granulocytes % (auto) 0.4 %; Lymphocytes # (auto) 0.76 K/uL (1.20-3.40); Lymphocytes % (auto) 6.5 %; Mean Corpuscular Hemoglobin 29.2 pg (25.0-34.0); Mean Corpuscular Hgb Conc 32.2 g/dL (32.0-36.0); Mean Corpuscular Volume 90.8 fL (80.0-100.0); Mean Platelet Volume 9.8 fL (9.4-12.4); Monocytes # (auto) 0.73 K/uL (0.11-0.59); Monocytes % (auto) 6.2 %; Neutrophils # (auto) 9.67 K/uL (1.40-6.50); Neutrophils % (auto) 82.7 %; Platelet Count 307 K/uL (130-400); RDW Coefficient of Variation 14.3 % (11.5-14.5); RDW Standard Deviation 47.7 fL (36.4-46.3); Red Blood Count 3.59 M/uL (4.70-6.10)
[2023-11-09 04:47] LABS: BUN Creatinine Ratio 38.8 (10-20); Calcium 8.4 mg/dl (8.6-10.3); Est GFR (African American) 113.9 ml/min; Est GFR (Non-African American) 98.3 ml/min; Magnesium 1.9 mg/dl (1.7-2.4); Phosphorus 2.4 mg/dl (2.5-4.9); Potassium 3.3 mmol/L (3.5-5.1)
[2023-11-09] MEDS: POLYETHYLENE (MIRALAX) 17 GM PACK PO PRN (09:06)
--- NOTE | 2023-11-09 13:45 | Hospitalist Progress Note ---
Date of Service November 09, 2023 Assessment & Plan (1) Closed fracture of left hip: (2) Fall: (3) Centrilobular emphysema: (4) BPH (benign prostatic hyperplasia): (5) DDD (degenerative disc disease): Plan Pt is an 88-year-old male with past medical history significant for emphysema, pulmonary nodule, aortic valve sclerosis, BPH, bladder stones, degenerative disc disease, bilateral leg edema, postherpetic neuralgia, history of tobacco abuse, [facility] after a [facility] with a left hip fracture. Closed fracture of left hip Fall with hip fracture This patient has a h/o falls with admissions for this Hip xray showed acute displaced impacted left femoral neck fracture No precipitating causes Consulted orthopedics, appreciate recs -Status post left hip hemiarthroplasty on 11/05/2023 -pain management -PT/OT patient ambulates with a walker at baseline and his daughter reports that he will be getting a new design walker Recent UTI Per daughter, he completed his antibiotic course for recent UTI Pt denies any UTI symptoms, fevers or chills UA grew ritchie, repeat with no significant growth No need to have any antibiotic or antifungal Urine catheter was changed- hematuria noted Hematuria Hematuria noted Hgb stable at 10.7 from 12.7 postop Continue to monitor Consider Urology consult if persistent Persistent leukocytosis White count was significantly elevated Infectious workup otherwise unremarkable Remains afebrile Currently improving Hypophosphatemia Replete as needed Centrilobular emphysema Chronic, stable No hypoxia, normal breathing patterns, clear lungs to auscultation. Not on inhaler therapy per records review. Requiring 5 L to maintain saturation Nebulized bronchodilators as needed BPH (benign prostatic hyperplasia) chronic, stable. Cont tamsulosin per home regimen DDD (degenerative disc disease) chronic back pain Pt reported lower back pain on admission likely related to the fall, but he cannot given any history on this pain. Daughter reports patient had back pain last week. CT L-spine noted moderate L1 compression fracture, new since CT of June 04, 2021. Noted that this fracture was likely subacute to chronic Cont supportive care with pain medications. DVT proph-held preoperatively, SCDs Full Code confirmed with patient on admission Dispo-bed hold Admission and Anticipated Discharge Date Admission Date: November 04, 2023 Subjective Pt was seen laying in bed. Denied acute concerns at that time. Review of Systems Review of Systems: All systems reviewed & are unremarkable except as noted in Subjective Physical Exam Physical Exam: General: Alert. No acute distress Psych: Appropriate mood and affect Neuro: difficulty with movements in the bed HEENT: NC/AT Chest: Nontender to palpation. CV: RRR Resp: Breath sounds clear bilaterally, no increased effort of breathing. Abdomen: Soft, nontender, nondistended. Extremities: No edema in lower extremities bilaterally. Results & Data Results & Data Vital Signs (Past 12 Hours) Vital Signs Temp Pulse Pulse Resp BP BP Pulse Ox 11/09/23 11:49 36.3 C L 80 20 143/74 H 90 11/09/23 11:14 120 H 11/09/23 10:40 36.3 C L 78 20 149/74 H 92 11/09/23 07:20 36.6 C 73 20 149/72 H 90 11/09/23 05:58 65 11/09/23 02:31 36.9 C 56 L 20 113/67 94 O2 Del Method O2 Flow Rate 11/09/23 11:49 Nasal Cannula 5 11/09/23 11:14 11/09/23 10:40 Nasal Cannula 5 11/09/23 07:20 Nasal Cannula 5 11/09/23 05:58 11/09/23 02:31 Nasal Cannula 5 Diagnostic Findings Hip X-Ray 11/04/23 08:14 XR hip LT min 2V CLINICAL HISTORY: fall, hip pain COMPARISON: Pelvis radiograph October 25, 2023. FINDINGS: There is an acute displaced impacted left femoral neck fracture. Fracture is displaced approximately 1.6 cm. There is superior displacement of the distal component. No acute fractures are identified within visualized portions of the left hemipelvis. IMPRESSION: Acute displaced impacted left femoral neck fracture. ACT 112: Negative or not required by law. Electronically signed by: Keshawn Mckeon M.D. 11/04/2023 9:[address] 11/04/23 08:20 CT OF THE HEAD WITHOUT CONTRAST CLINICAL HISTORY: fall COMPARISON STUDY: Head CT October 25, 2023. CT DOSE: 625.8 mGy.cm TECHNIQUE: Helical axial images of the head were obtained without IV contrast. Automated exposure control was utilized for the study. A dose lowering technique was utilized adhering to the principles of ALARA. FINDINGS: No acute intracranial hemorrhage, midline shift or mass effect is present. The ventricular system is stable. White matter hypodensities are unchanged and favor small vessel disease. The basal cisterns are patent. No extra-axial collections are present. There are no findings to suggest acute dural sinus thrombosis or acute territorial infarct. There are no calvarial fracture. 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 IMPRESSION: 1. No acute intracranial findings. No change in appearance of the brain. 2. No calvarial fractures. ACT 112: Negative or not required by law. Electronically signed by: Keshawn Mckeon M.D. 11/04/2023 9:[address] 11/04/23 14:11 CT lumbar spine wo con CLINICAL HISTORY: acute back pain, severe, trauma today(fall) COMPARISON STUDY: Lumbar spine radiographs September 04, 2019. CT of the abdomen and pelvis June 04, 2021. TECHNIQUE: Axial images of the lumbar spine were obtained without IV contrast. Sagittal and coronal reconstructions were viewed. Automated exposure control was utilized for the study. A dose lowering technique was utilized adhering to the principles of ALARA. FINDINGS: For purposes of numbering on this exam, the L5-S1 disc space is assigned to axial image 299 of 354. There is moderate lumbar spine levoscoliosis. Moderate loss of height of the inferior endplate of L1 is new since CT of the abdomen and pelvis of June 04, 2021. However, this fracture is not acute appearing. No definite acute lumbar spine fractures are present. There are postoperative findings consistent with L3 and L4 laminectomies. There is severe multilevel facet arthrosis and moderate multilevel disc space narrowing with extensive osteophytosis of the lumbar spine. Paravertebral soft tissues are unremarkable. Central canal and neural foramen is suboptimally assessed given CT technique. There is suspected moderate central canal stenosis at L4-L5. Sacroiliac joints are intact. IMPRESSION: 1. Moderate L1 compression fracture, new since CT of June 04, 2021. However, this fracture is likely subacute to chronic. No acute lumbar spine fracture identified. 2. Status post L3-L4 laminectomies. 3. Multilevel degenerative disc disease and facet arthrosis within the lumbar spine. Suboptimal evaluation of the central canal and neural foramen given CT technique. Suspected moderate central canal stenosis at L4-L5. 4. Moderate lumbar spine levoscoliosis. ACT 112: Negative or not required by law. Electronically signed by: Keshawn Mckeon M.D. 11/04/2023 3:09 PM Hip/Pelvis X-Ray 11/05/23 09:43 XR hip 1V LT w pelvis CLINICAL HISTORY: Postoperative evaluation. COMPARISON: Left hip radiographs November 04, 2023. FINDINGS: Alignment of the left hip arthroplasty is anatomic. There is no periprosthetic fracture or unexpected radiopaque foreign body. Skin marissa are noted. There are no fractures within the pelvis or right hip. Prostatic calcifications are incidentally noted. IMPRESSION: Expected findings following left hip arthroplasty. ACT 112: Negative or not required by law. Electronically signed by: Keshawn Mckeon M.D. 11/05/2023 10:29 AM Chest X-Ray 11/08/23 09:46 XR chest 1V portable HISTORY: 88 years-old Male r/o Pneumonia COMPARISON: 10/25/2023 TECHNIQUE: AP view of the chest FINDINGS: Cardiac mediastinal and hilar silhouettes are unchanged. Atherosclerosis of the aorta. Emphysema with chronic interstitial coarsening. No pneumothorax, large pleural effusion or overt pulmonary edema. Mild linear left basilar atelectasis versus scarring. The bones appear grossly intact. IMPRESSION: Emphysema without acute process. ACT 112: Negative or not required by law. The above report was generated using voice recognition software. It may contain grammatical, syntax or spelling errors. Electronically signed by: Roldan Gore M.D. 11/08/2023 10:38 AM (1) Closed fracture of left hip Encounter type: initial encounter Qualified Code(s): S72.002A - Fracture of unspecified part of neck of left femur, initial encounter for closed fracture (2) Fall Encounter type: initial encounter Qualified Code(s): W19.XXXA - Unspecified fall, initial encounter
[2023-11-09] MEDS ORDERED: POTASSIUM PHOS 3 MMOL/1 ML INFUSION IV STA (16:55)
[2023-11-09] MEDS: POTASSIUM PHOSPHATE 15 MMOL in SODIUM CHLORIDE 0.9% 250 ML IV ONE (17:51)
[2023-11-09] MEDS: POTASSIUM CHLORIDE CRTAB 20 MEQ TABCR PO STA (17:56)
[2023-11-10 06:28] LABS: Basophils # (auto) 0.05 K/uL (0.00-0.20); Basophils % (auto) 0.5 %; Eosinophils # (auto) 0.48 K/uL (0.00-0.50); Eosinophils % (auto) 5.2 %; Hematocrit (blood only) 32.8 % (42.0-52.0); Hemoglobin 10.7 g/dl (14.0-18.0); Immature Granulocytes # (auto) 0.06 K/uL (0.01-0.20); Immature Granulocytes % (auto) 0.6 %; Lymphocytes # (auto) 0.81 K/uL (1.20-3.40); Lymphocytes % (auto) 8.7 %; Mean Corpuscular Hemoglobin 29.5 pg (25.0-34.0); Mean Corpuscular Hgb Conc 32.6 g/dL (32.0-36.0); Mean Corpuscular Volume 90.4 fL (80.0-100.0); Mean Platelet Volume 9.2 fL (9.4-12.4); Monocytes # (auto) 0.72 K/uL (0.11-0.59); Monocytes % (auto) 7.8 %; Neutrophils # (auto) 7.15 K/uL (1.40-6.50); Neutrophils % (auto) 77.2 %; Platelet Count 307 K/uL (130-400); RDW Coefficient of Variation 14.2 % (11.5-14.5); RDW Standard Deviation 47.1 fL (36.4-46.3); Red Blood Count 3.63 M/uL (4.70-6.10); White Blood Count 9.27 K/ul (4.8-10.8)
[2023-11-10 07:31] LABS: Albumin Level 2.8 gm/dl (3.4-5.0); BUN Creatinine Ratio 26.9 (10-20); Calcium 8.5 mg/dl (8.6-10.3); Creatinine Clr Calc Pharmacy 103.3 ml/min; Est GFR (African American) 111.1 ml/min; Est GFR (Non-African American) 95.9 ml/min; Globulin 2.8 gm/dl (2.5-4.0); Magnesium 1.9 mg/dl (1.7-2.4); Phosphorus 2.8 mg/dl (2.5-4.9); Potassium 3.7 mmol/L (3.5-5.1); Total Protein 5.6 gm/dl (6.0-8.3)
--- NOTE | 2023-11-10 12:19 | Hospitalist Progress Note ---
Date of Service November 10, 2023 Assessment & Plan (1) Closed fracture of left hip: (2) Fall: (3) Centrilobular emphysema: (4) BPH (benign prostatic hyperplasia): (5) DDD (degenerative disc disease): Plan Pt is an 88-year-old male with past medical history significant for emphysema, pulmonary nodule, aortic valve sclerosis, BPH, bladder stones, degenerative disc disease, bilateral leg edema, postherpetic neuralgia, history of tobacco abuse, [facility] after a [facility] with a left hip fracture. Closed fracture of left hip Fall with hip fracture This patient has a h/o falls with admissions for this Hip xray showed acute displaced impacted left femoral neck fracture No precipitating causes Consulted orthopedics, appreciate recs -Status post left hip hemiarthroplasty on 11/05/2023 -pain management -PT/OT patient ambulates with a walker at baseline and his daughter reports that he will be getting a new design walker Recent UTI Per daughter, he completed his antibiotic course for recent UTI Pt denies any UTI symptoms, fevers or chills UA grew ritchie, repeat with no significant growth No need to have any antibiotic or antifungal Urine catheter was changed- hematuria noted Hematuria Hematuria noted Hgb stable at 10.7 from 12.7 postop Continue to monitor Consider Urology consult if persistent Persistent leukocytosis White count was significantly elevated Infectious workup otherwise unremarkable Remains afebrile Currently improving Hypophosphatemia Replete as needed Centrilobular emphysema Chronic, stable No hypoxia, normal breathing patterns, clear lungs to auscultation. Not on inhaler therapy per records review. Requiring 5 L to maintain saturation Nebulized bronchodilators as needed BPH (benign prostatic hyperplasia) chronic, stable. Cont tamsulosin per home regimen DDD (degenerative disc disease) chronic back pain Pt reported lower back pain on admission likely related to the fall, but he cannot given any history on this pain. Daughter reports patient had back pain last week. CT L-spine noted moderate L1 compression fracture, new since CT of June 04, 2021. Noted that this fracture was likely subacute to chronic Cont supportive care with pain medications. DVT proph-held preoperatively, SCDs Full Code confirmed with patient on admission Dispo-bed hold Admission and Anticipated Discharge Date Admission Date: November 04, 2023 Physical Exam Physical Exam: General: Alert. No acute distress Psych: Appropriate mood and affect Neuro: difficulty with movements in the bed HEENT: NC/AT Chest: Nontender to palpation. CV: RRR Resp: Breath sounds clear bilaterally, no increased effort of breathing. Abdomen: Soft, nontender, nondistended. Extremities: No edema in lower extremities bilaterally. Results & Data Results & Data Vital Signs (Past 12 Hours) Vital Signs Temp Pulse Resp BP BP Pulse Ox O2 Del Method 11/10/23 11:47 36.3 C L 75 17 137/71 93 Nasal Cannula 11/10/23 08:05 36.7 C 76 18 146/75 H 94 Nasal Cannula 11/10/23 08:00 Nasal Cannula 11/10/23 03:10 36.8 C 67 18 120/67 97 Nasal Cannula O2 Flow Rate 11/10/23 11:47 5 11/10/23 08:05 5 11/10/23 08:00 5 11/10/23 03:10 5 (1) Closed fracture of left hip Encounter type: initial encounter Qualified Code(s): S72.002A - Fracture of unspecified part of neck of left femur, initial encounter for closed fracture (2) Fall Encounter type: initial encounter Qualified Code(s): W19.XXXA - Unspecified fall, initial encounter
--- NOTE | 2023-11-10 15:35 | Discharge Summary ---
Discharge Summary Date of Service November 10, 2023 Notes For Next Care Provider Please ensure followup with orthopedic Surgery Medication Changes From Visit Per Orthopedics, aspirin 81mg BID for DVT prophylaxis Admission HPI Per Admitting Provider Recently admitted to this hospital 10/24- for a fall and UTI. Went home with 5 days of cefdinir. Interestingly, he was also admitted in May 2023 after a fall with lacerations to his face and scalp and other minor injuries. He lives at [facility] with his . He is oriented today and despite prior notes reporting a history of dementia, his daughter states that he doesn't have any issues like that. On 10/26/23, during last admission to the hospital, he was evaluated by PT and was able to ambulate 80 ft with a RW and contact guard assistance. His gait was slow and he was noted to display shorter step length on both sides. Today he suffered a fall, landing on his left side with subsequent acute left hip fracture. The pt denies any loss of consciousness and states that he tripped with the cause "stupidity." Admission Exam Per Admitting Provider CONSTITUTIONAL: WNWD, vitals as above, generally well-appearing, mild distress 2/2 hip and lower back pain EYES: PERRL, normal conjunctivae, no scleral icterus ENT: external ear and nose normal, MMM NECK: trachea midline RESPIRATORY: clear to auscultation bilaterally, no crackles, rales or wheezes, normal respiratory effort CARDIOVASCULAR: regular rate and rhythm, S1 and 2 heard without murmurs, gallops or rubs, no JVD, no peripheral edema CHEST: inspection of chest was normal GASTROINTESTINAL: normal bowel sounds, soft, nontender, ND, no guarding. MUSCULOSKELETAL: strength 5/5 throughout, head is normocephalic and atraumatic SKIN: warm and dry NEUROLOGIC: CN 2-12 grossly intact, no sensory deficit, normal cognition, normal speech, no tremor PSYCHIATRIC: alert cooperative and oriented to person, place and time. Euthymic mood, makes good eye contact, language grossly intact, memory poor as cannot give clear recollection of events this morning. Principal Dx & Hospital Course #1 = Principal Diagnosis (1) Closed fracture of left hip: (2) Fall: (3) Centrilobular emphysema: (4) BPH (benign prostatic hyperplasia): (5) DDD (degenerative disc disease): Plan Pt is an 88-year-old male with past medical history significant for emphysema, pulmonary nodule, aortic valve sclerosis, BPH, bladder stones, degenerative disc disease, bilateral leg edema, postherpetic neuralgia, history of tobacco abuse, [facility] who presented after a fall with a left hip fracture. Closed fracture of left hip Fall with hip fracture This patient has a h/o falls with admissions for this Hip xray showed acute displaced impacted left femoral neck fracture No precipitating causes Consulted orthopedics, appreciate recs -Status post left hip hemiarthroplasty on 11/05/2023 -pain management -PT/OT -WBAT left lower extremity -DVT PPx- per orthopedics, started on aspirin 81mg BID - follow-up as an outpatient in 2 weeks. patient ambulates with a walker at baseline and his daughter reports that he will be getting a new design walker orthopedic followup after discharge Recent UTI Per daughter, he completed his antibiotic course for recent UTI Pt denies any UTI symptoms, fevers or chills UA grew ritchie likely contaminant, repeat with no significant growth No need to have any antibiotic or antifungal Rx Urine catheter was changed- hematuria noted (see below) Hematuria Hematuria noted, loco in place Hgb stable at 10.7 from 12.7 postop on discharge Continue to monitor Consider Urology consult if persistent Change loco as needed Persistent leukocytosis White count was significantly elevated Infectious workup otherwise unremarkable Remains afebrile Improved and within normal limits on discharge Hypophosphatemia Repleted as needed Centrilobular emphysema Chronic, stable Not on inhaler therapy per records review. Requiring 5 L to maintain saturation Nebulized bronchodilators as needed Continue to monitor, wean as tolerated BPH (benign prostatic hyperplasia) chronic, stable. Cont tamsulosin per home regimen DDD (degenerative disc disease) chronic back pain Pt reported lower back pain on admission likely related to the fall, but he cannot given any history on this pain. Daughter reports patient had back pain last week. CT L-spine noted moderate L1 compression fracture, new since CT of June 04, 2021. Noted that this fracture was likely subacute to chronic Cont supportive care with pain medications. Family (pt's daughter) updated on day of discharge. Discharge Exam General: Alert, oriented x2. No acute distress Psych: Appropriate mood and affect Neuro: difficulty with movements in the bed HEENT: NC/AT Chest: Nontender to palpation. CV: RRR Resp: Breath sounds clear bilaterally, no increased effort of breathing. Abdomen: Soft, nontender, nondistended. Extremities: No edema in lower extremities bilaterally. Updated Medication List Medication Instructions Recorded Confirmed Type tamsulosin 0.4 mg capsule (Flomax) 0.4 mg PO HS 11/11/18 11/04/23 History cholecalciferol (vitamin D3) 50 50 mcg PO QAM 04/24/21 11/04/23 History mcg (2,000 unit) capsule (Vitamin D3) acetaminophen 325 mg tablet 650 mg PO Q6H PRN FEVER/PAIN 05/13/23 11/04/23 History (Tylenol) acetaminophen 500 mg tablet 1,000 mg PO BID 05/13/23 11/04/23 History hydrocortisone 1 % topical cream 1 applic topical QID 05/13/23 11/04/23 History pantoprazole 40 mg tablet,delayed 40 mg PO QAM gastric erosions 05/13/23 11/04/23 History release (Protonix) polyethylene glycol 3350 17 gram 17 g PO QAM PRN Constipation 05/13/23 11/04/23 History oral powder packet (Miralax) diclofenac sodium 1 % topical gel 4 g topical Q6H PRN LEFT KNEE PAIN 10/25/23 11/04/23 History aspirin 81 mg tablet,delayed 81 mg PO BID #60 tabs 11/10/23 Rx release Hospital Stay Data Consultations 11/04/23 10:31 ED Decision to Admit Stat 11/05/23 08:00 Consult Orthopedic Surgery Routine Procedures Performed Operation Date: 11/05/23 07:30 Actual Procedures p Left Hip Hemiarthroplasty(Left) - Roldan Monroe DO Diagnostic Imagining Performed 11/04/23 08:20 CT head/brain wo con Stat 11/04/23 14:11 CT lumbar spine wo con Stat Hip X-Ray 11/04/23 08:14 XR hip LT min 2V CLINICAL HISTORY: fall, hip pain COMPARISON: Pelvis radiograph October 25, 2023. FINDINGS: There is an acute displaced impacted left femoral neck fracture. Fracture is displaced approximately 1.6 cm. There is superior displacement of the distal component. No acute fractures are identified within visualized portions of the left hemipelvis. IMPRESSION: Acute displaced impacted left femoral neck fracture. ACT 112: Negative or not required by law. Electronically signed by: Keshawn Mckeon M.D. 11/04/2023 9:[address] 11/04/23 08:20 CT OF THE HEAD WITHOUT CONTRAST CLINICAL HISTORY: fall COMPARISON STUDY: Head CT October 25, 2023. CT DOSE: 625.8 mGy.cm TECHNIQUE: Helical axial images of the head were obtained without IV contrast. A utomated exposure control was utilized for the study. A dose lowering technique was utilized adhering to the principles of ALARA. FINDINGS: No acute intracranial hemorrhage, midline shift or mass effect is present. The ventricular system is stable. White matter hypodensities are unchanged and favor small vessel disease. The basal cisterns are patent. No extra-axial collections are present. There are no findings to suggest acute dural sinus thrombosis or acute territorial infarct. There are no calvarial fracture. 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 IMPRESSION: 1. No acute intracranial findings. No change in appearance of the brain. 2. No calvarial fractures. ACT 112: Negative or not required by law. Electronically signed by: Keshawn Mckeon M.D. 11/04/2023 9:[address] 11/04/23 14:11 CT lumbar spine wo con CLINICAL HISTORY: acute back pain, severe, trauma today(fall) COMPARISON STUDY: Lumbar spine radiographs September 04, 2019. CT of the abdomen and pelvis June 04, 2021. TECHNIQUE: Axial images of the lumbar spine were obtained without IV contrast. Sagittal and coronal reconstructions were viewed. Automated exposure control was utilized for the study. A dose lowering technique was utilized adhering to the principles of ALARA. FINDINGS: For purposes of numbering on this exam, the L5-S1 disc space is assigned to axial image 299 of 354. There is moderate lumbar spine levoscoliosis. Moderate loss of height of the inferior endplate of L1 is new since CT of the abdomen and pelvis of June 04, 2021. However, this fracture is not acute appearing. No definite acute lumbar spine fractures are present. There are postoperative findings consistent with L3 and L4 laminectomies. There is severe multilevel facet arthrosis and moderate multilevel disc space narrowing with extensive osteophytosis of the lumbar spine. Paravertebral soft tissues are unremarkable. Central canal and neural foramen is suboptimally assessed given CT technique. There is suspected moderate central canal stenosis at L4-L5. Sacroiliac joints are intact. IMPRESSION: 1. Moderate L1 compression fracture, new since CT of June 04, 2021. However, this fracture is likely subacute to chronic. No acute lumbar spine fracture identified. 2. Status post L3-L4 laminectomies. 3. Multilevel degenerative disc disease and facet arthrosis within the lumbar spine. Suboptimal evaluation of the central canal and neural foramen given CT technique. Suspected moderate central canal stenosis at L4-L5. 4. Moderate lumbar spine levoscoliosis. ACT 112: Negative or not required by law. Electronically signed by: Keshawn Mkceon M.D. 11/04/2023 3:09 PM Hip/Pelvis X-Ray 11/05/23 09:43 XR hip 1V LT w pelvis CLINICAL HISTORY: Postoperative evaluation. COMPARISON: Left hip radiographs November 04, 2023. FINDINGS: Alignment of the left hip arthroplasty is anatomic. There is no periprosthetic fracture or unexpected radiopaque foreign body. Skin marissa are noted. There are no fractures within the pelvis or right hip. Prostatic calcifications are incidentally noted. IMPRESSION: Expected findings following left hip arthroplasty. ACT 112: Negative or not required by law. Electronically signed by: Keshawn Mckeon M.D. 11/05/2023 10:29 AM Chest X-Ray 11/08/23 09:46 XR chest 1V portable HISTORY: 88 years-old Male r/o Pneumonia COMPARISON: 10/25/2023 TECHNIQUE: AP view of the chest FINDINGS: Cardiac mediastinal and hilar silhouettes are unchanged. Atherosclerosis of the aorta. Emphysema with chronic interstitial coarsening. No pneumothorax, large pleural effusion or overt pulmonary edema. Mild linear left basilar atelectasis versus scarring. The bones appear grossly intact. IMPRESSION: Emphysema without acute process. ACT 112: Negative or not required by law. The above report was generated using voice recognition software. It may contain grammatical, syntax or spelling errors. Electronically signed by: Roldan Gore M.D. 11/08/2023 10:38 AM Pending Results Patient Have Any Pending Studies at Discharge: No Discharge Instructions Given to Patient (Per Discharging Provider) ACTIVITY RECOMMENDATIONS: SELF CARE INSTRUCTIONS AFTER HIP HEMIARTHROPLASTY Until the incision and soft tissues around your hip have healed, there is a possibility that the hip prosthesis could dislocate. A. Observe the following precautions to prevent dislocation: 1. Don't bend your hip greater than 90 degrees. 2. Avoid crossing your legs or ankles while standing or lying. 3. Sit with your feet placed 6 inches apart. 4. When sitting, keep your knees below your hips. Sit on a firm surface, avoid deep, soft chairs and couches. Use an elevated toilet seat in the bathroom. 5. Don't bend over at the waist. Use a long handled shoehorn and a sock aid to help you put on your shoes and socks. A flask pusher can help you pharmacy picking technician objects that are too high or too low to reach. 6. Keep car riding to a minimum for at least one month after surgery. B. Your balance may be shaky for a while. Use crutches or a walker until directed by your doctor. C. Use hand rails when walking on stairs. D. Wear low heeled shoes with non-slip soles. E. Be sure that your floors are free of things that could trip you - throw rugs, electrical cords, small objects. Avoid wet and waxed floors, especially with crutches and canes. F. Try to walk several times a day with rest periods between. G. Continue with all the exercises taught to you in the hospital. Again, make walking a part of your daily routine. SPECIAL CARE INSTRUCTIONS: VERY IMPORTANT TO READ AND REVIEW A. You may still be at risk for phlebitis and blood clots. 1. Wear surgical stockings (MARIA GUADALUPE hose) for 2 weeks after surgery to improve circulation and reduce swelling. 2. Take Aspirin 81mg twice daily for 4 weeks or as directed by your doctor. This is your blood thinner. 3. High risk patients may be prescribed a stronger blood thinner if necessary. 4. If you are on Coumadin normally, your family doctor/facilities maintenance supervisor should monitor your blood work. Expect a phone call the day of or the day after bloodwork is drawn to adjust your dosage. B. You must take antibiotics before having dental work, bladder, bowel and other surgery. Your doctor will provide you with a permanent card to carry describing precautions. C. Call [facility] if you have a fever, redness or swelling around the incision, cloudy drainage from incision, or sudden increase in pain in your hip, not relieved by your regular pain medication. D. Please call the office at if you have any concerns or questions about your operation or recovery. * YOU MAY SHOWER, NO TUB BATHS UNTIL CLEARED BY YOUR DOCTOR. * WEAR MARIA GUADALUPE HOSE 20 HOURS PER DAY FOR 2 WEEKS. * YOU SHOULD USE A WALKER OR CRUTCHES FOR 2-4 WEEKS. THIS WILL HELP PREVENT STRAIN ON YOUR HIP MUSCLE AND ALLOW IT TO HEAL PROPERLY. YOU MAY WEAN TO A CANE TOLERATED. * MOST PATIENTS WILL HAVE HOME NURSING FOR THERAPY. IF YOU DECIDE TO DO OUTPATIENT PHYSICAL THERAPY, PLEASE SCHEDULE THIS 3 TIMES PER WEEK. * YOU MAY HAVE A LARGE, BAND-AID LIKE DRESSING (SILVERON). THIS WILL REMAIN ON YOUR INCISION FOR 7 DAYS, THEN CAN BE REMOVED. IF INCISION IS LEAKING THROUGH DRESSING, PLEASE CALL THE OFFICE . FOLLOW UP VISIT: If appointment is not already scheduled: Please call [facility] to make a follow-up appointment for 2 weeks after your surgery at . Total Time Total Time Spent Total Time Spent (In Minutes): > 30 minutes
[2023-11-10] MEDS ORDERED: HEPARIN SOD 5,000 UNIT/0.5 ML VIAL SQ SCH (21:00)
== END 2023-11-10 16:33 | DRG 522 ==
LOC: ED 07:26 → SUATTDRO 10:32 → EDINP 10:32 → 2W 21:25

== ENCOUNTER 2024-07-04 03:54 | Inpatient (IN) ==
--- NOTE | 2024-07-04 04:05 | Emergency Department Note ---
History of Present Illness General Chief complaint: Rectal Bleed Stated complaint: BLOODY STOOL Time Seen by Provider: 07/04/24 03:54 History of Present Illness 89-year-old male with past medical history significant for emphysema, pulmonary nodule, aortic valve sclerosis, BPH, bladder stones, degenerative disc disease, bilateral leg edema, postherpetic neuralgia, history of tobacco abuse, [facility] abdominal pain and blood in the stool tonight. Caregiver at the custodial was concerned and sent the patient in. Patient denies chest pain, dyspnea, fever, chills, injury to the area. He is on a baby aspirin. No history of blood transfusions in the past. Home Medications Medication Instructions Recorded Confirmed Type tamsulosin 0.4 mg capsule (Flomax) 0.8 mg PO HS 11/11/18 07/04/24 History cholecalciferol (vitamin D3) 50 50 mcg PO QAM 04/24/21 07/04/24 History mcg (2,000 unit) capsule (Vitamin D3) acetaminophen 325 mg tablet 650 mg PO Q6H PRN FEVER/PAIN 05/13/23 07/04/24 History (Tylenol) acetaminophen 500 mg tablet 1,000 mg PO BID 05/13/23 07/04/24 History hydrocortisone 1 % topical cream 1 applic topical QID 05/13/23 07/04/24 History pantoprazole 40 mg tablet,delayed 40 mg PO QAM gastric erosions 05/13/23 07/04/24 History release (Protonix) polyethylene glycol 3350 17 gram 17 g PO QAM PRN Constipation 05/13/23 07/04/24 History oral powder packet (Miralax) diclofenac sodium 1 % topical gel 4 g topical Q6H PRN LEFT KNEE PAIN 10/25/23 07/04/24 History aspirin 81 mg tablet,delayed 81 mg PO BID #60 tabs 11/10/23 07/04/24 Rx release Prevagen 1 tab PO QAM 07/04/24 07/04/24 History dextromethorphan-guaifenesin 30 1 tab PO Q12H 07/04/24 07/04/24 History mg-600 mg tablet extended [id number] hr (Mucinex DM) latanoprost 0.005 % eye drops 1 drp OPB HS 07/04/24 07/04/24 History naproxen sodium 220 mg tablet 220 mg PO BID 07/04/24 07/04/24 History Allergies Allergy/AdvReac Type Severity Reaction Status Date / Time meloxicam Allergy Mild RASH Verified 07/04/24 09:40 hydrochlorothiazide AdvReac Severe PANCREATITI Verified 07/04/24 09:40 S morphine AdvReac Severe convulsions Verified 07/04/24 09:40 gabapentin AdvReac Intermediate Fainting Verified 10/25/23 18:54 Past Med/Surg History Problem List (Updated 07/04/24 @ 08:23 by Harrison Arnold DO) Diverticulitis of colon with hemorrhage Rectal bleeding (Acute) Alcohol abuse Fall (Acute) Closed fracture of left hip (Acute) Confusion (Acute) Weakness (Acute) Leukocytosis (Acute) Acute UTI (urinary tract infection) (Acute) Fall (Acute) CHI (closed head injury) (Acute) Bronchitis Hypoxia (Acute) Weakness (Acute) Sinusitis (Acute) Skin tear of right upper extremity (Acute) Contusion of knee, right (Acute) Contusion of knee, left (Acute) Contusion of nose (Acute) Laceration of face (Acute) Laceration of scalp (Acute) Fall (Acute) CHI (closed head injury) (Acute) Non-traumatic rhabdomyolysis Lung nodule YULISSA (acute kidney injury) (Acute) Dehydration (Acute) Rhabdomyolysis (Acute) Skin tear of left hand without complication (Acute) Fall (Acute) Hypertension Acute head injury Heavy alcohol use Abnormal LFTs Lumbar spinal stenosis DVT prophylaxis Acute pancreatitis (Acute) Abnormal LFTs (Acute) UTI (urinary tract infection) (Acute) Injury of leg, right (Acute) 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 Esophagitis Choledocholithiasis (Acute) Diverticulitis Diverticulosis (Acute) Lower gastrointestinal hemorrhage (Acute) Acute blood loss anemia Anemia (Acute) History of colon polyps Gastric erosions Anemia (Acute) Centrilobular emphysema Left hip pain DDD (degenerative disc disease) BPH (benign prostatic hyperplasia) Medical History Abnormal urinalysis Aortic valve sclerosis Bladder stones History of colon polyps History of COVID-19 09/11/21 @ [facility] (asymptomatic, tested prior to procedure)--no issues Hearing deficit Centrilobular emphysema Left hip pain Anemia Lung nodule Acute pancreatitis Osteoarthritis Spinal stenosis B/L LE radiculopathy History of hypertension controlled since weight loss Mandibular fracture DDD (degenerative disc disease) BPH (benign prostatic hyperplasia) Surgical History History of ERCP (~11/30/20) History of esophagogastroduodenoscopy (EGD) last 09/29/21 @ [place] History of colonoscopy Previous back surgery History of tonsillectomy and adenoidectomy Hx of toe surgery HAD TOENAIL REMOVED IN OFFICE 12/2018 Hx of tonsillectomy Hx of hernia repair RIGHT INGUINAL History of carpal tunnel surgery RIGHT HAND History of appendectomy Family History Mother Liver cancer Social History Smoking Status: Former smoker Tobacco Type: Cigarettes Second Hand Exposure: No; Do You Dip or Chew Tobacco: No; Hx Alcohol Use: Yes Alcohol type: hard liquor Hx Substance Use: No Preferred Language: Japanese Communication Ability: Impaired Communication Ability Comment: pt can communicate but can not always express needs d/t confusion. Visual Impairment: No Limitations Mortgage Closer Required: No Beliefs That Will Affect Care: None marital status: Current Living Situation: Spouse and Personal Care Facility Current Living Situation Comment: Lives at [facility]/ Ibeth Other Information That Helps Us Care for You: No Feels Safe at Home: Yes Safety Concerns: Feels Safe At This Time Assistive Devices: Denture - Lower Review of Systems A total of 10 systems reviewed and were otherwise negative Physical Exam Vital Signs Vital Signs - 24 hr 07/04/24 03:57 07/04/24 04:04 07/04/24 04:10 Temperature 36.4 C L Temperature Source Oral Pulse Rate 69 68 Pulse Rate [Apical] Pulse Rate from SpO2 Sensor Pulse Rhythm [Apical] Pulse Strength [Apical] Respiratory Rate 18 Respiratory Effort / Characteristics Respiratory Depth Blood Pressure 113/64 Blood Pressure [Right Arm] Blood Pressure Mean 80 Blood Pressure Mean [Right Arm] Pulse Oximetry 93 93 Oxygen Delivery Method Room Air Room Air Oxygen Flow Rate Sepsis Recent Fever Within 48 Hours No Sepsis New/Unexplained Change in Mental Status N/A Sepsis Action Taken by Nursing No Action Required 07/04/24 04:30 07/04/24 05:00 07/04/24 05:36 Temperature Temperature Source Pulse Rate 68 63 63 Pulse Rate [Apical] Pulse Rate from SpO2 Sensor 65 62 63 Pulse Rhythm [Apical] Pulse Strength [Apical] Respiratory Rate 15 20 21 Respiratory Effort / Characteristics Respiratory Depth Blood Pressure 97/50 L 97/56 L 118/56 L Blood Pressure [Right Arm] Blood Pressure Mean 65 69 76 Blood Pressure Mean [Right Arm] Pulse Oximetry 97 98 96 Oxygen Delivery Method Nasal Cannula Nasal Cannula Nasal Cannula Oxygen Flow Rate 3 3 3 Sepsis Recent Fever Within 48 Hours Sepsis New/Unexplained Change in Mental Status Sepsis Action Taken by Nursing 07/04/24 07:23 07/04/24 08:14 Temperature 36.8 C Temperature Source Oral Pulse Rate 66 Pulse Rate [Apical] 64 Pulse Rate from SpO2 Sensor Pulse Rhythm [Apical] Regular Pulse Strength [Apical] Normal Respiratory Rate 18 Respiratory Effort / Characteristics Non-Labored Spontaneous Respiratory Depth Normal Blood Pressure Blood Pressure [Right Arm] 122/70 Blood Pressure Mean Blood Pressure Mean [Right Arm] 87 Pulse Oximetry 97 Oxygen Delivery Method Nasal Cannula Oxygen Flow Rate 2 Sepsis Recent Fever Within 48 Hours Sepsis New/Unexplained Change in Mental Status Sepsis Action Taken by Nursing VITALS: Vitals are noted on the nurse's note and reviewed by myself. Vital signs stable. GENERAL: Pleasant elderly male, in no acute distress, nondiaphoretic, well- developed well-nourished. SKIN: Capillary reflex less than 2 seconds. HEENT: Normocephalic. PERRLA. EOMI. Nares patent. Mucous membranes moist. Neck is supple without nuchal rigidity. HEART: Regular rate and rhythm LUNGS: Clear to auscultation bilaterally without wheezes, rales or rhonchi. No retractions or accessory muscle use. ABDOMEN: Positive bowel sounds x 4. Normal tympanic percussion. Soft, tender to palpation left lower quadrant, without masses or organomegaly. Grewal sign negative. No guarding or rebound tenderness. no CVA tenderness MUSCULOSKELETAL: No gross musculoskeletal defects. NEURO: Patient was alert and oriented to person place and time. No focal neurological deficits. Course Administered Medications Amoxicillin/Clavulanate Potassium (Amoxicillin/Clavulanate 875 Mg Tab) 1 tab PO BIDM [facility]; Protocol Stop: 07/14/24 16:59 Last Admin: 07/04/24 16:55 Dose: 1 tab Documented By: LMM Pantoprazole Sodium (Pantoprazole 40 Mg Tab) 40 mg PO BID [place] Stop: 08/03/24 10:59 Last Admin: 07/04/24 20:07 Dose: 40 mg Documented By: Admin: 07/04/24 11:44 Dose: 40 mg Documented By: RASHIDA Tamsulosin HCl (Tamsulosin Hcl 0.4 Mg Cap) 0.4 mg PO HS [place]IS Stop: 08/03/24 20:59 Last Admin: 07/04/24 20:07 Dose: 0.4 mg Documented By: MCS Discontinued Medications Famotidine (Pepcid 20mg Iv Push) 20 mg in 5 mls @ 2.5 mls/min IV NOW STA Stop: 07/04/24 04:00 Last Admin: 07/04/24 04:12 Dose: 2.5 mls/min Documented By: ANDREY Pantoprazole Sodium 80 mg/ (Dextrose) 120 mls @ 480 mls/hr IV ONE STA Stop: 07/04/24 04:13 Last Infusion: 07/04/24 04:43 Dose: Infused Documented By: Admin: 07/04/24 04:27 Dose: 480 mls/hr Documented By: HEMA Ioversol (Optiray 320 100ml) 94 ml IV ONCE ONE Stop: 07/04/24 04:41 Last Admin: 07/04/24 04:41 Dose: 94 ml Documented By: ROBINA Ondansetron HCl (Ondansetron Inj 2 Mg/Ml 2 Ml Vial) 4 mg IV ONE STA Stop: 07/04/24 04:00 Last Admin: 07/04/24 04:12 Dose: 4 mg Documented By: ANDREY Medical Decision Making Medical Records Attestation: I reviewed the patient's medical records. Home Medications Current Medication List: was personally reviewed by me Laboratory Data Attestation: I reviewed the patient's lab results. 07/04/24 14:33 07/04/24 04:06 Lab Results 07/04/24 07/04/24 07/04/24 Range/Units 04:03 04:06 04:11 WBC 9.62 (4.8-10.8) K/ul RBC 3.48 L (4.70-6.10) M/uL Hgb 9.5 L (14.0-18.0) g/dl POC Hgb 9.9 L (14.0-18.0) g/dl Hct 30.3 L (42.0-52.0) % POC Hct 29 L (42-52) % MCV 87.1 (80.0-100.0) fL MCH 27.3 (25.0-34.0) pg MCHC 31.4 L (32.0-36.0) g/dL RDW Std Deviation 44.8 (36.4-46.3) fL RDW Coeff of Jocelyn 14.2 (11.5-14.5) % Plt Count 225 (130-400) K/uL MPV 10.3 (9.4-12.4) fL Immature Gran % (Auto) 0.4 % Neut % (Auto) 86.4 % Lymph % (Auto) 7.0 % [place] % (Auto) 5.1 % Eos % (Auto) 0.6 % Baso % (Auto) 0.5 % Neut # (Auto) 8.31 H (1.40-6.50) K/uL Lymph # (Auto) 0.67 L (1.20-3.40) K/uL [place] # (Auto) 0.49 (0.11-0.59) K/uL Eos # (Auto) 0.06 (0.00-0.50) K/uL Baso # (Auto) 0.05 (0.00-0.20) K/uL Immature Gran # (Auto) 0.04 (0.01-0.20) K/uL PT 11.4 (9.0-12.0) Seconds INR 1.1 (0.9-1.1) APTT 24 (21-31) Seconds PTT Ratio 0.9 POC Sodium 143 (135-144) mmol/L Sodium 144 (136-145) mmol/L POC Potassium 4.3 (3.3-5.0) mmol/L Potassium 4.4 (3.5-5.1) mmol/L POC Chloride 109 (101-112) mmol/L Chloride 110 H (98-107) mmol/L Carbon Dioxide 28 (21-32) mmol/L POC Total CO2 25 (24-31) mmol/L Anion Gap 6 (3-11) POC Anion Gap 14.0 L (16-25) mmol/L POC BUN 28 H (7-18) mg/dl BUN 30 H (6-23) mg/dl Creatinine 0.85 (0.6-1.4) mg/dl POC Creatinine 0.9 (0.6-1.3) mg/dl Est Cr Clr Drug Dosing 58.3 ml/min eGFR 83.58 BUN/Creatinine Ratio 35.3 H (10-20) Glucose 120 H (70-99(Fasting)) mg/dl POC Glucose (other) 115 H (70-99) mg/dl Calcium 9.6 (8.6-10.3) mg/dl POC Ioniz Calcium Celso 1.26 (1.12-1.32) mmol/l Magnesium 1.9 (1.7-2.4) mg/dl Total Bilirubin 0.4 (0.2-1.0) mg/dl AST 12 L (13-39) U/L ALT 9 (7-52) U/L Alkaline Phosphatase 83 (34-104) U/L Troponin I High Sens 4.4 (0-20) pg/ml Total Protein 6.3 (6.0-8.3) gm/dl Albumin 3.6 (3.4-5.0) gm/dl Globulin 2.7 (2.5-4.0) gm/dl Albumin/Globulin Ratio 1.3 (0.9-2) Blood Type O Positive Antibody Screen NEGATIVE Imaging Data Attestation: I personally reviewed and interpreted this imaging study as follows: Radiologist's Impression: Abdomen/Pelvis CT 07/04/24 03:59 EXAM: CT abd pelvis IV con only CLINICAL HISTORY: llq pain, rectal bleed, TECHNIQUE: Contrast-enhanced CT of the abdomen and pelvis was performed, with the following protocol: axial images with, and reconstructed coronal and sagittal images. 94 ml optiray 320 was administered intravenously. One of the following dose reduction techniques was utilized for this exam: Automated exposure control, adjustment of the mA and/or kV according to patient size, and use of iterative reconstruction. COMPARISON: 06/04/2021. FINDINGS: The scanned lung bases show subpleural reticulations with patchy areas of groundglass opacity and subtle bronchiectatic changes suggesting mild bilateral atelectatic changes, small rounded area of high alveolar density noted at the right lateral lower lung lobe measuring 15 mm with air bronchogram and small focus of calcification(enlarged since prior study, was 9mm) , mild cardiomegaly Abdomen: Liver: Normal in size, shape, and density. No focal lesions, cysts, or masses were identified. Hepatic vasculature and biliary ducts are unremarkable. Gallbladder and Biliary System: The gallbladder is surgically removed Pneumobilia was noted at both lower lobes more at the left lower lobe (stable) Mildly dilated central intrahepatic radicles were noted at the right liver lobe Dilated common bile duct measuring 10.7 mm with evidence of pneumobilia Pancreas: Pancreatic head, body, and tail are visualized and appear normal in size and density. No pancreatic masses or calcifications were noted. The pancreatic duct is not dilated. Spleen: Normal in size, shape, and density. Small hypodense non-enhancing focal lesion measuring 6.3 mm was noted at the spleen Kidneys and Adrenal Glands: Both kidneys are normal in size, shape, and position. Cortical thickness is within normal limits. No renal calculi or hydronephrosis. Adrenal glands are unremarkable with no evidence of masses or hyperplasia. Bilateral simple renal cysts noted Pelvis: Urinary Bladder: Normal in contour and wall thickness. No intraluminal lesions were identified. Prostate: Normal in size and contour. No focal lesions or masses were identified. Seminal Vesicles: Normal in size and appearance. No abnormalities were noted. Rectum and Sigmoid Colon: Normal wall thickness and no evidence of mass. Peritoneal and Retroperitoneal Structures: No free fluid or abnormal fluid collections were identified within the abdomen or pelvis. No lymphadenopathy was noted. Bowel: Suspected second part of the duodenum small diverticulum measuring 11x 15 mm Multiple colonic diverticuli are noted with enlargement of mesenteric vessels noted supplying the sigmoid colon. And stranding noted around the cecum. with subtle submucosal cecal wall thickening with maximum thickness of 1 cm, The possibility of early acute diverticulitis cannot be excluded no detected collections Prominent terminal ileal loops measuring up to 2 cm in diameter with fecalization of its content, with proximal short segment of mucosal thickening seen in the proximal ileal loop. Maximum thickness of 7 mm possible ileitis Bones and Soft Tissues: Pelvic bones and soft tissues are unremarkable. Spine degenerative changes with osteophytes with old compression collapse of L1 vertebra with reduction of 40% of its height IMPRESSION: 1. Multiple colonic diverticuli are noted with enlargement of mesenteric vessels and stranding noted around the cecum with subtle submucosal cecal wall thickening with maximum thickness of 1 cm . no detected collections, The possibility of early acute diverticulitis cannot be excluded, clinical correlation/ colonoscopy is advised (new) 2. Prominent terminal ileal loops measuring up to 2 cm in diameter with fecalization of its content, with proximal short segment of mucosal thickening seen in the proximal ileal loop. Maximum thickness of 7 mm possible ileitis new) 3. Pneumobilia with Mildly dilated central intrahepatic radicles noted at the right liver lobe (stable) 4. A rounded area of high alveolar density noted at the right lateral lower lung lobe measuring 15 mm with air bronchogram and small focus of calcification(enlarged since prior study, was 9mm) , Dedicated CT chest is advised 5. Suspected second part of the duodenum small diverticulum measuring 11x 15 mm , no complications (stable) 6. Small hypodense nonenhancing focal lesion measuring 6.3 mm noted at the spleen, too small to be chractrized (new) 7. Spine degenerative changes with osteophytes with old compression collapse of L1 vertebra with reduction of 40% of its height (new) Electronically signed by Lennox Iraheta 07-04-2024 07:03 AM MDM Narrative Prior records/ancillary studies reviewed. Triage Nursing notes reviewed. Additional history obtained from the EMS. The patient's history was concerning for possible gastrointestinal bleeding. Differential diagnosis: Etiologies such as diverticulosis, AVM, coagulopathy, colitis, inflammatory bowel disease, malignancy, Aleja-Masterson tear, esophagitis, peptic ulcer disease, variceal bleed, gastritis, epistaxis, fissure, hemorrhoids, as well as others were entertained. Physical exam: As above. The patients vital signs were stable. ER treatment provided: An order was placed for continuous cardiac monitoring. The monitor shows a rate of 60-100 with a sinus rhythm per my interpretation. Protonix, Pepcid and Zofran were ordered Patient was consented to blood and type and screen was sent On reassessment the patient felt better. Diagnostics interpreted by me: ECG: Ordered for weakness EKG: Normal sinus, left bundle, left axis, no acute ST-T wave changes, rate of 71. Impression normal sinus rhythm with a right bundle branch block left axis deviation event interpreted by self The labs Independently Interpreted by myself revealed mild anemia, negative troponin No worrisome leukocytosis Imaging studies: CT pending at time of signout This appears to be consistent with rectal bleeding. CT was pending at time of signout. Patient will be admitted once CT is back. Mild anemia. Patient was typed and crossmatch. Blood consent is on the chart. He will be admitted to the medical service. The pt informed about the findings as listed above. All questions were answered and pleased with the treatment. Case signed out to oncoming provider pending CAT scan and reevaluation in stable condition. The chart was completed utilizing [employer] Speech voice recognition software. Grammatical errors, random word insertions, pronoun errors, and incomplete sentences are an occassional consequence of this system due to software limitations, ambient noise, and hardware issues. Any formal questions or concerns about the content, text, or information contained within the body of this dictation should be directly addressed to the physician assistant store director for clarification. Impression & Plan Rectal bleeding, Anemia Discharge Plan Visit Data Chief Complaint: Rectal Bleed Stated Complaint: BLOODY STOOL ED Provider: [facility] ED Midlevel Provider: Shanique Beltran Discharge Problem: Rectal bleeding, Anemia Patient Disposition: Admitted As Inpatient Condition: Fair Discharge Instructions Interventions: ED Discharge Assessment Last Done: 07/04/24 10:36
[2024-07-04] MEDS: FAMOTIDINE 20MG IV PUSH 20 MG/5 ML SYR IV STA (04:12)
[2024-07-04] MEDS: ONDANSETRON INJ 2 MG/ML 2 ML VIAL IV STA (04:12)
[2024-07-04 04:23] LABS: iSTAT Creatinine 0.9 mg/dl (0.6-1.3); iSTAT Hemoglobin 9.9 g/dl (14.0-18.0); iSTAT Ionized Calcium 1.26 mmol/l (1.12-1.32); iSTAT Potassium 4.3 mmol/L (3.3-5.0)
[2024-07-04] MEDS: PANTOprazole 80 MG in DEXTROSE 5% 100 ML IV STA (04:27)
[2024-07-04 04:33] LABS: Basophils # (auto) 0.05 K/uL (0.00-0.20); Basophils % (auto) 0.5 %; Eosinophils # (auto) 0.06 K/uL (0.00-0.50); Eosinophils % (auto) 0.6 %; Hematocrit (blood only) 30.3 % (42.0-52.0); Hemoglobin 9.5 g/dl (14.0-18.0); Immature Granulocytes # (auto) 0.04 K/uL (0.01-0.20); Immature Granulocytes % (auto) 0.4 %; Lymphocytes # (auto) 0.67 K/uL (1.20-3.40); Mean Corpuscular Hemoglobin 27.3 pg (25.0-34.0); Mean Corpuscular Hgb Conc 31.4 g/dL (32.0-36.0); Mean Corpuscular Volume 87.1 fL (80.0-100.0); Mean Platelet Volume 10.3 fL (9.4-12.4); Monocytes # (auto) 0.49 K/uL (0.11-0.59); Monocytes % (auto) 5.1 %; Neutrophils # (auto) 8.31 K/uL (1.40-6.50); Neutrophils % (auto) 86.4 %; Platelet Count 225 K/uL (130-400); RDW Coefficient of Variation 14.2 % (11.5-14.5); RDW Standard Deviation 44.8 fL (36.4-46.3); Red Blood Count 3.48 M/uL (4.70-6.10); White Blood Count 9.62 K/ul (4.8-10.8)
[2024-07-04 04:37] LABS: Albumin Globulin Ratio 1.3 (0.9-2); Albumin Level 3.6 gm/dl (3.4-5.0); BUN Creatinine Ratio 35.3 (10-20); Bilirubin,Total 0.4 mg/dl (0.2-1.0); Calcium 9.6 mg/dl (8.6-10.3); Creatinine Clr Calc Pharmacy 58.3 ml/min; Globulin 2.7 gm/dl (2.5-4.0); Magnesium 1.9 mg/dl (1.7-2.4); Potassium 4.4 mmol/L (3.5-5.1); Total Protein 6.3 gm/dl (6.0-8.3)
[2024-07-04] MEDS: OPTIRAY 320 100ml IV ONE (04:41)
[2024-07-04 04:43] LABS: Troponin I High Sensitivity 4.4 pg/ml (0-20)
[2024-07-04 04:46] LABS: INR 1.1 (0.9-1.1); Partial Thromboplastin Ratio 0.9; Partial Thromboplastin Time 24 Seconds (21-31); Prothrombin Time 11.4 Seconds (9.0-12.0)
--- NOTE | 2024-07-04 04:52 | Emergency Department Note ---
ED Visit Note I was consulted by the Advanced Practice Provider. I personally approved the management plan and take responsibility for the patient management. This includes the aspects of: -History/Physical -MDM -I independently interpreted the following studies:Studies and results .
--- NOTE | 2024-07-04 07:03 | CT Scan Report ---
EXAM: CT abd pelvis IV con only CLINICAL HISTORY: llq pain, rectal bleed, TECHNIQUE: Contrast-enhanced CT of the abdomen and pelvis was performed, with the following protocol: axial images with, and reconstructed coronal and sagittal images. 94 ml optiray 320 was administered intravenously. One of the following dose reduction techniques was utilized for this exam: Automated exposure control, adjustment of the mA and/or kV according to patient size, and use of iterative reconstruction. COMPARISON: 06/04/2021. FINDINGS: The scanned lung bases show subpleural reticulations with patchy areas of groundglass opacity and subtle bronchiectatic changes suggesting mild bilateral atelectatic changes, small rounded area of high alveolar density noted at the right lateral lower lung lobe measuring 15 mm with air bronchogram and small focus of calcification(enlarged since prior study, was 9mm) , mild cardiomegaly Abdomen: Liver: Normal in size, shape, and density. No focal lesions, cysts, or masses were identified. Hepatic vasculature and biliary ducts are unremarkable. Gallbladder and Biliary System: The gallbladder is surgically removed Pneumobilia was noted at both lower lobes more at the left lower lobe (stable) Mildly dilated central intrahepatic radicles were noted at the right liver lobe Dilated common bile duct measuring 10.7 mm with evidence of pneumobilia Pancreas: Pancreatic head, body, and tail are visualized and appear normal in size and density. No pancreatic masses or calcifications were noted. The pancreatic duct is not dilated. Spleen: Normal in size, shape, and density. Small hypodense non-enhancing focal lesion measuring 6.3 mm was noted at the spleen Kidneys and Adrenal Glands: Both kidneys are normal in size, shape, and position. Cortical thickness is within normal limits. No renal calculi or hydronephrosis. Adrenal glands are unremarkable with no evidence of masses or hyperplasia. Bilateral simple renal cysts noted Pelvis: Urinary Bladder: Normal in contour and wall thickness. No intraluminal lesions were identified. Prostate: Normal in size and contour. No focal lesions or masses were identified. Seminal Vesicles: Normal in size and appearance. No abnormalities were noted. Rectum and Sigmoid Colon: Normal wall thickness and no evidence of mass. Peritoneal and Retroperitoneal Structures: No free fluid or abnormal fluid collections were identified within the abdomen or pelvis. No lymphadenopathy was noted. Bowel: Suspected second part of the duodenum small diverticulum measuring 11x 15 mm Multiple colonic diverticuli are noted with enlargement of mesenteric vessels noted supplying the sigmoid colon. And stranding noted around the cecum. with subtle submucosal cecal wall thickening with maximum thickness of 1 cm, The possibility of early acute diverticulitis cannot be excluded no detected collections Prominent terminal ileal loops measuring up to 2 cm in diameter with fecalization of its content, with proximal short segment of mucosal thickening seen in the proximal ileal loop. Maximum thickness of 7 mm possible ileitis Bones and Soft Tissues: Pelvic bones and soft tissues are unremarkable. Spine degenerative changes with osteophytes with old compression collapse of L1 vertebra with reduction of 40% of its height IMPRESSION: 1. Multiple colonic diverticuli are noted with enlargement of mesenteric vessels and stranding noted around the cecum with subtle submucosal cecal wall thickening with maximum thickness of 1 cm . no detected collections, The possibility of early acute diverticulitis cannot be excluded, clinical correlation/ colonoscopy is advised (new) 2. Prominent terminal ileal loops measuring up to 2 cm in diameter with fecalization of its content, with proximal short segment of mucosal thickening seen in the proximal ileal loop. Maximum thickness of 7 mm possible ileitis new) 3. Pneumobilia with Mildly dilated central intrahepatic radicles noted at the right liver lobe (stable) 4. A rounded area of high alveolar density noted at the right lateral lower lung lobe measuring 15 mm with air bronchogram and small focus of calcification(enlarged since prior study, was 9mm) , Dedicated CT chest is advised 5. Suspected second part of the duodenum small diverticulum measuring 11x 15 mm , no complications (stable) 6. Small hypodense nonenhancing focal lesion measuring 6.3 mm noted at the spleen, too small to be chractrized (new) 7. Spine degenerative changes with osteophytes with old compression collapse of L1 vertebra with reduction of 40% of its height (new) Electronically signed by Lennox Iraheta 07-04-2024 07:03 AM
--- NOTE | 2024-07-04 08:23 | Emergency Department Note ---
ED Visit Note The patient was signed out to me at change of shift by Alyx Beltran PA-C pending CT scan results. CT imaging shows diverticular disease, with early signs of diverticulitis. In the presence of rectal bleeding, the patient requires admission for further evaluation and workup. Other findings are noted on CT imaging, that we will be evaluated by the admitting provider, Dr. Wu. The patient was admitted to Dr. Wu, please refer to his documentation for further patient workup and care. .
--- NOTE | 2024-07-04 08:25 | History & Physical Report ---
Date of Service July 04, 2024 Assessment & Plan (1) Diverticulitis of colon with hemorrhage: (2) Diverticulosis: (3) Acute blood loss anemia: Plan Patient presents with the reported history of rectal bleeding. Based on history, CT findings high suspicion for early acute diverticulitis with bleeding. Patient requires hospital level care, high risk for ongoing bleeding, severe anemia and need for blood transfusion. Requires laboratory monitoring and hospital level interventions Monitor patient in the hospital Monitor hemoglobin Blood consent obtained in the ED Increase PPI to 2 times daily Possibly early diverticulitis, start oral antibiotics Transfuse PRBCs as needed Clear liquid diet Hold NSAIDs Did discuss advanced directives with the patient. He states that if he were to be in a condition where he would require chest compressions and intubation he would want to be kept comfortable and not undergo those heroic interventions. CODE STATUS will be DNR/DNI at this time History of Present Illness Chief Complaint: Rectal bleeding Primary Care Provider: Raoul Luis Patient is an 89-year-old gentleman resident at [facility] presents to the emergency room after caregivers noted some rectal bleeding. Patient does have a history of diverticulosis and diverticulitis. In the emergency room hemoglobin was greater than 9. There was no signs of active ongoing bleeding. CT imaging question some early diverticulitis. Patient was referred to our service for further evaluation. Time my evaluation patient denies any abdominal pain. He is really even unsure how much bleeding he had. He does recall history of diverticulitis many years ago. He denies any chest pain. No shortness of breath. States has been eating and drinking well. Maybe a little bit of nasal congestion but no cough or other cold symptoms. He denies any swelling in his hands arms legs or feet. 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 Allergies Allergy/AdvReac Type Severity Reaction Status Date / Time meloxicam Allergy Mild RASH Verified 10/25/23 18:54 hydrochlorothiazide AdvReac Severe PANCREATITI Verified 10/25/23 18:54 S morphine AdvReac Severe convulsions Verified 10/25/23 18:54 gabapentin AdvReac Intermediate Fainting Verified 10/25/23 18:54 Home Medications Medication Instructions Recorded Confirmed Type tamsulosin 0.4 mg capsule (Flomax) 0.4 mg PO HS 11/11/18 11/04/23 History cholecalciferol (vitamin D3) 50 50 mcg PO QAM 04/24/21 11/04/23 History mcg (2,000 unit) capsule (Vitamin D3) acetaminophen 325 mg tablet 650 mg PO Q6H PRN FEVER/PAIN 05/13/23 11/04/23 History (Tylenol) acetaminophen 500 mg tablet 1,000 mg PO BID 05/13/23 11/04/23 History hydrocortisone 1 % topical cream 1 applic topical QID 05/13/23 11/04/23 History pantoprazole 40 mg tablet,delayed 40 mg PO QAM gastric erosions 05/13/23 11/04/23 History release (Protonix) polyethylene glycol 3350 17 gram 17 g PO QAM PRN Constipation 05/13/23 11/04/23 History oral powder packet (Miralax) diclofenac sodium 1 % topical gel 4 g topical Q6H PRN LEFT KNEE PAIN 10/25/23 11/04/23 History aspirin 81 mg tablet,delayed 81 mg PO BID #60 tabs 11/10/23 Rx release Past Med/Surg History Problem List (Updated 07/04/24 @ 08:23 by Harrison Arnold, ) Diverticulitis of colon with hemorrhage Rectal bleeding (Acute) Alcohol abuse Fall (Acute) Closed fracture of left hip (Acute) Confusion (Acute) Weakness (Acute) Leukocytosis (Acute) Acute UTI (urinary tract infection) (Acute) Fall (Acute) CHI (closed head injury) (Acute) Bronchitis Hypoxia (Acute) Weakness (Acute) Sinusitis (Acute) Skin tear of right upper extremity (Acute) Contusion of knee, right (Acute) Contusion of knee, left (Acute) Contusion of nose (Acute) Laceration of face (Acute) Laceration of scalp (Acute) Fall (Acute) CHI (closed head injury) (Acute) Non-traumatic rhabdomyolysis Lung nodule YULISSA (acute kidney injury) (Acute) Dehydration (Acute) Rhabdomyolysis (Acute) Skin tear of left hand without complication (Acute) Fall (Acute) Hypertension Acute head injury Heavy alcohol use Abnormal LFTs Lumbar spinal stenosis DVT prophylaxis Acute pancreatitis (Acute) Abnormal LFTs (Acute) UTI (urinary tract infection) (Acute) Injury of leg, right (Acute) 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 Esophagitis Choledocholithiasis (Acute) Diverticulitis Diverticulosis (Acute) Lower gastrointestinal hemorrhage (Acute) Acute blood loss anemia Anemia (Acute) History of colon polyps Gastric erosions Anemia (Acute) Centrilobular emphysema Left hip pain DDD (degenerative disc disease) BPH (benign prostatic hyperplasia) Medical History Abnormal urinalysis Aortic valve sclerosis Bladder stones History of colon polyps History of COVID-19 09/11/21 @ [facility] (asymptomatic, tested prior to procedure)--no issues Hearing deficit Centrilobular emphysema Left hip pain Anemia Lung nodule Acute pancreatitis Osteoarthritis Spinal stenosis B/L LE radiculopathy History of hypertension controlled since weight loss Mandibular fracture DDD (degenerative disc disease) BPH (benign prostatic hyperplasia) Surgical History History of ERCP (~11/30/20) History of esophagogastroduodenoscopy (EGD) last 09/29/21 @ [place] History of colonoscopy Previous back surgery History of tonsillectomy and adenoidectomy Hx of toe surgery HAD TOENAIL REMOVED IN OFFICE 12/2018 Hx of tonsillectomy Hx of hernia repair RIGHT INGUINAL History of carpal tunnel surgery RIGHT HAND History of appendectomy Family History Mother Liver cancer Social History Smoking Status: Former smoker Tobacco Type: Cigarettes Second Hand Exposure: No; Do You Dip or Chew Tobacco: No; Hx Alcohol Use: Yes Alcohol type: hard liquor Hx Substance Use: No Preferred Language: Sami Communication Ability: Effective Communication Ability Comment: pt is WIYOT Visual Impairment: No Limitations Unified Communications Engineer Required: No Beliefs That Will Affect Care: None marital status: Current Living Situation: Spouse and Personal Care Facility Current Living Situation Comment: Lives at [facility] w/ Ibeth Feels Safe at Home: Yes Assistive Devices: Glasses and Walker Review of Systems Review of Systems: Pertinent positive and negative review of systems as mentioned in the HPI Physical Exam Physical Exam: Constitutional: Alert, slightly pale in appearance, nontoxic HEENT: Mucous membranes moist. Sclera clear Neck: Soft, no adenopathy Lungs: Clear to auscultation, decreased, no wheezes rales or rhonchi CV: S1-S2, regular Abdomen: Soft, nontender, nondistended Extremities: No significant edema Musculoskeletal: No significant joint tenderness Neuro: No focal deficits Psych: Cooperative, normal mood Results & Data Results & Data Vital Signs (Past 12 Hours) Vital Signs Temp Pulse Pulse Resp BP BP Pulse Ox 07/04/24 08:14 66 07/04/24 07:23 36.8 C 64 18 122/70 97 07/04/24 05:36 63 21 118/56 L 96 07/04/24 05:00 63 20 97/56 L 98 07/04/24 04:30 68 15 97/50 L 97 07/04/24 04:10 68 07/04/24 04:04 93 07/04/24 03:57 36.4 C L 69 18 113/64 93 O2 Del Method O2 Flow Rate 07/04/24 08:14 07/04/24 07:23 Nasal Cannula 2 07/04/24 05:36 Nasal Cannula 3 07/04/24 05:00 Nasal Cannula 3 07/04/24 04:30 Nasal Cannula 3 07/04/24 04:10 07/04/24 04:04 Room Air 07/04/24 03:57 Room Air Diagnostic Findings Reviewed imaging, laboratory and diagnostic studies. Pertinent findings as below. CT abdomen pelvis report reviewed, questionable early diverticulitis Electrolytes stable Creatinine 0.85 Glucose 120 LFTs stable Coags unremarkable WBCs 9.6 Hemoglobin 9.5, Appears as though hemoglobin has been trending downward since earlier this year.
[2024-07-04] MEDS ORDERED: NO NSAIDS SCH (11:00)
[2024-07-04] MEDS ORDERED: ONDANSETRON INJ 2 MG/ML 2 ML VIAL IV PRN (11:00)
[2024-07-04] MEDS ORDERED: MAGNESIUM HYDROXIDE SUSP 30 ML UDC PO PRN (11:00)
[2024-07-04] MEDS ORDERED: POLYETHYLENE (MIRALAX) 17 GM PACK PO PRN (11:00)
[2024-07-04] MEDS: PANTOprazole 40 MG TAB PO SCH (11:44)
--- NOTE | 2024-07-04 12:09 | Electrocardiogram Report ---
Test Reason : Blood Pressure : */* mmHG Vent. Rate : 71 BPM Atrial Rate : 71 BPM P-R Int : 156 ms QRS Dur : 134 ms QT Int : 446 ms P-R-T Axes : 46 -34 50 degrees QTcB Int : 484 ms Normal sinus rhythm with occasional Premature atrial complexes Left axis deviation Right bundle branch block Abnormal ECG When compared with ECG of 04-Nov-2023 07:37, Premature atrial complexes now present Otherwise no significant change Confirmed by Austen Chapa ([id number]) on 07/04/2024 12:09:07 PM Referred By: [facility] Confirmed By: Austen Chapa
[2024-07-04 13:13] LABS: Adenovirus F 40/41 PCR Not Detected (NotDetected); Astrovirus PCR Not Detected (NotDetected); Campylobacter PCR Not Detected (NotDetected); Cryptosporidium PCR Not Detected (NotDetected); Cyclospora cayetanensis PCR Not Detected (NotDetected); Entamoeba histolytica PCR Not Detected (NotDetected); Enteroaggregative E.coli(EAEC) Not Detected (NotDetected); Enteropathogenic E.coli (EPEC) Not Detected (NotDetected); Enterotoxigenic E.coli (ETEC) Not Detected (NotDetected); Giardia lamblia PCR Not Detected (NotDetected); Norovirus GI/GII PCR Not Detected (NotDetected); Plesiomonas shigelloides PCR Not Detected (NotDetected); Rotavirus A PCR Not Detected (NotDetected); Salmonella PCR Not Detected (NotDetected); Sapovirus PCR Not Detected (NotDetected); Shiga-like Toxin E.coli (STEC) Not Detected (NotDetected); Shigella/Enteroinvasive E.coli Not Detected (NotDetected); Vibrio cholerae PCR Not Detected (NotDetected); Vibrio species PCR Not Detected (NotDetected); Yersinia enterocolitica PCR Not Detected (NotDetected)
[2024-07-04 14:46] LABS: Hematocrit (blood only) 25.9 % (42.0-52.0); Hemoglobin 8.2 g/dl (14.0-18.0)
[2024-07-04] MEDS: AMOXICILLIN/CLAVULANATE 875 MG TAB PO SCH (16:55)
[2024-07-04] MEDS: TAMSULOSIN HCL 0.4 MG CAP PO SCH (20:07)
[2024-07-04 22:56] LABS: Hematocrit (blood only) 22.9 % (42.0-52.0); Hemoglobin 7.2 g/dl (14.0-18.0)
[2024-07-05] MEDS: ACETAMINOPHEN 325 MG TAB PO PRN (00:52)
[2024-07-05] MEDS ORDERED: SODIUM CHLORIDE 0.9% 50 ML IV PRN ×4 (07:42→14:32)
[2024-07-05] MEDS ORDERED: SODIUM CHLORIDE 0.9% 100 ML IV PRN ×4 (07:42→14:32)
[2024-07-05 08:13] LABS: BUN Creatinine Ratio 52.2 (10-20); Creatinine Clr Calc Pharmacy 73.9 ml/min; Potassium 4.1 mmol/L (3.5-5.1)
[2024-07-05 08:46] LABS: Basophils # (auto) 0.04 K/uL (0.00-0.20); Basophils % (auto) 0.3 %; Eosinophils # (auto) 0.15 K/uL (0.00-0.50); Eosinophils % (auto) 1.2 %; Hematocrit (blood only) 21.9 % (42.0-52.0); Hemoglobin 6.9 g/dl (14.0-18.0); Hypochromasia Present; Immature Granulocytes # (auto) 0.06 K/uL (0.01-0.20); Immature Granulocytes % (auto) 0.5 %; Lymphocytes % (auto) 3.8 %; Mean Corpuscular Hemoglobin 27.6 pg (25.0-34.0); Mean Corpuscular Hgb Conc 31.5 g/dL (32.0-36.0); Mean Corpuscular Volume 87.6 fL (80.0-100.0); Mean Platelet Volume 10.8 fL (9.4-12.4); Microcytosis Present; Monocytes # (auto) 0.67 K/uL (0.11-0.59); Monocytes % (auto) 5.2 %; Neutrophils # (auto) 11.58 K/uL (1.40-6.50); Platelet Count 224 K/uL (130-400); Polychromasia 1+; RDW Coefficient of Variation 14.3 % (11.5-14.5); RDW Standard Deviation 45.4 fL (36.4-46.3)
--- NOTE | 2024-07-05 09:59 | Hospitalist Progress Note ---
Date of Service July 05, 2024 Assessment & Plan (1) Diverticulitis of colon with hemorrhage: (2) Diverticulosis: (3) Acute blood loss anemia: (4) Dehydration: Plan Patient with acute blood loss anemia suspected due to diverticular hemorrhage and mild diverticulitis. Transfuse PRBC Consult GI Transition Augmentin to Zosyn now that patient is having more abdominal symptoms and increased WBCs Patient with lab evidence of some mild dehydration with hypernatremia, hyperchl oremia, start IV fluids Continue to monitor hemoglobin and other laboratory studies Updated soncheryl to patient's condition and plan of care. Admission and Anticipated Discharge Date Admission Date: July 04, 2024 Subjective Patient states may be having a little bit of lower abdominal discomfort. Unaware if he had any more bloody stools. Nurse reports some bloody stools yesterday but none overnight. Denies any chest pain, no shortness of breath, no lightheadedness or dizziness. Physical Exam Physical Exam: Constitutional: Alert, nontoxic HEENT: Mucous membranes moist. Lungs: Clear to auscultation, decreased, no wheezes rales or rhonchi CV: S1-S2, regular Abdomen: Soft, nondistended, mild tenderness left lower quadrant, no guarding, no rigidity Extremities: No significant edema Neuro: No focal deficits Psych: Cooperative, normal mood Results & Data Results & Data Vital Signs (Past 12 Hours) Vital Signs Temp Pulse Pulse Resp BP BP Pulse Ox 07/05/24 09:19 36.4 C L 78 18 122/65 96 07/05/24 08:49 36.4 C L 83 18 113/61 92 07/05/24 08:34 36.6 C 86 18 116/62 94 07/05/24 08:24 07/05/24 08:18 36.5 C 83 18 120/67 93 07/05/24 07:24 36.8 C 80 16 102/59 L 93 O2 Del Method 07/05/24 09:19 07/05/24 08:49 07/05/24 08:34 07/05/24 08:24 Room Air 07/05/24 08:18 07/05/24 07:24 Room Air Diagnostic Findings Reviewed imaging, laboratory and diagnostic studies. Pertinent findings as below. Stool BioFire negative C. difficile negative Hemoglobin 6.9, significant decrease from admission WBCs 13.0, slightly increased Sodium 147 Chloride 114 BUN 35
--- NOTE | 2024-07-05 10:24 | Gastrointestinal Consultation ---
Date of Consultation July 05, 2024 Assessment & Plan (1) Rectal bleedin89 year old male w/ history of emphysema, pulmonary nodule, aortic valve sclerosis, BPH, bladder stones, degenerative disc disease, bilateral leg edema, postherpetic neuralgia, tobacco abuse, [facility] admitted through the ED for rectal bleeding - HGB 6.9 requiring RBC transfusion this AM. He denies utilization of the NSAIDs on his medication list and denies ETOH use to me. He has had painless rectal bleeding, bright red in color. DDX discussed: UGI bleeding given MILD BUN elevation and ?NSAIDs use vs lower GI bleeding. CT shows subtle submucosal cecal wall thickening. He completed a liquid diet for breakfast around 0840 this AM and denies pain to me but there is some documentation of abd discomfort May continue liquid diet this AM NPO aftermidnight Colonoscopy +/- EGD Tuesday Trend H&H Monitor and document GI output Transfuse PRN per primary service IV PPI BID No NSAIDs I spent a total of 60 minutes on the date of service in review of patient's record, and previously obtained information in person and appropriate medical visit, discussion and education of plan, with patient and/or caregiver, placing orders for tests/referral/procedures as medically necessary and documentation of pertinent clinical information in patient's medical records for their visit today.We appreciate assistance in the management of any serological abnormality and corrections to include: hemoglobin >7, INR <2, platelets >50,000, potassium levels >3.5 but <5.3, and sodium levels within 5 points of the reference range prior to endoscopic evaluation. Thank you for allowing us to participate in the care of this patient. Please call with any acute changes, questions or concerns. Please see addendum below with additional recommendation from my supervising physician. Supervising Physician Co-Signing Physician Notes I examined the patient and reviewed the medical record, laboratory data and imaging studies. I agree with the assessment and plan of care as suggested by the advanced practice provider. Patient appears comfortable at the current time. He denies any specific complaints no nausea vomiting abdominal pain I did a rectal myself which showed some dark maroon-colored's pasty stools most likely etiology could be secondary to diverticular at the current time I would 1. Monitor H&H every 6 hours and transfuse to keep hemoglobin greater than 8 2. Would do a bleeding scan or CTA to see if there is any active bleeding 3. Will transfer to ICU or to monitor more closely 4. Will do a rapid prep to plan for a colonoscopy and if negative will do an EGD 5. In view of history of NSAID use we will place an NG tube and lavage to see if there is any blood if the lavage is negative would probably need an NG tube to prep for the colonoscopy 6. Placed on PPI twice daily IV Case discussed with primary team thank you for allowing us to take part in the care of your patient we will continue to follow him with you History of Present Illness Reason for Consultation: diverticular bleed, blood loss anemia Requesting Physician: Harrison Arnold DO Attending Physician: Harrison Arnold DO History of Present Illness 89 year old male w/ history of emphysema, pulmonary nodule, aortic valve sclerosis, BPH, bladder stones, degenerative disc disease, bilateral leg edema, postherpetic neuralgia, tobacco abuse, currently living at [facility] admitted through the ED for rectal bleeding - GI was asked to evaluate for a suspected diverticular bleed. Pt was seen and evaluated, chart reviewed. Upon evaluation thsi AM he had just completed breakfast and he notes he is feeling well. Denies abd pain. No nausea/vomiting. Nursing at bedside who suggests last BM was yesterday. No stool overnight or this AM yet. Denies abd pain, nausea/vomiting to me. No report of GERD. He denies NSAIDs despite these being on his medication list. Denies ETOH use to me. 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 Multiple colonic diverticuli are noted with enlargement of mesenteric vessels and stranding noted around the cecum with subtle submucosal cecal wall thickening with maximum thickness of 1 cm . no detected collections, The possibility of early acute diverticulitis cannot be excluded, clinical correlation/ colonoscopy is advised (new) 2. Prominent terminal ileal loops measuring up to 2 cm in diameter with fecalization of its content, with proximal short segment of mucosal thickening seen in the proximal ileal loop. Maximum thickness of 7 mm possible ileitis new) 3. Pneumobilia with Mildly dilated central intrahepatic radicles noted at the right liver lobe (stable) Colonoscopy 2021: - Three 3 to 4 mm polyps in the transverse colon, removed with a cold snare. Resected and retrieved. - One 2 mm polyp in the transverse colon, removed with a cold biopsy forceps. Resected and retrieved. - One 5 mm polyp in the descending colon, removed with a cold snare. Resected and retrieved. Clip was placed. - One 3 mm polyp in the ascending colon, removed with a cold snare. Resected and retrieved. - One 2 mm polyp in the cecum, removed with a cold biopsy forceps. Resected and retrieved. - Non-bleeding internal hemorrhoids. - Diverticulosis in the entire examined colon. EGD 2021: - Normal esophagus. - Gastritis. Biopsied. - Normal duodenal bulb and second portion of the duodenum. Allergies Allergy/AdvReac Type Severity Reaction Status Date / Time meloxicam Allergy Mild RASH Verified 07/04/24 09:40 hydrochlorothiazide AdvReac Severe PANCREATITI Verified 07/04/24 09:40 S morphine AdvReac Severe convulsions Verified 07/04/24 09:40 gabapentin AdvReac Intermediate Fainting Verified 10/25/23 18:54 Home Medications Medication Instructions Recorded Confirmed Type tamsulosin 0.4 mg capsule (Flomax) 0.8 mg PO HS 11/11/18 07/04/24 History cholecalciferol (vitamin D3) 50 50 mcg PO QAM 04/24/21 07/04/24 History mcg (2,000 unit) capsule (Vitamin D3) acetaminophen 325 mg tablet 650 mg PO Q6H PRN FEVER/PAIN 05/13/23 07/04/24 History (Tylenol) acetaminophen 500 mg tablet 1,000 mg PO BID 05/13/23 07/04/24 History hydrocortisone 1 % topical cream 1 applic topical QID 05/13/23 07/04/24 History pantoprazole 40 mg tablet,delayed 40 mg PO QAM gastric erosions 05/13/23 07/04/24 History release (Protonix) polyethylene glycol 3350 17 gram 17 g PO QAM PRN Constipation 05/13/23 07/04/24 History oral powder packet (Miralax) diclofenac sodium 1 % topical gel 4 g topical Q6H PRN LEFT KNEE PAIN 10/25/23 07/04/24 History aspirin 81 mg tablet,delayed 81 mg PO BID #60 tabs 11/10/23 07/04/24 Rx release Prevagen 1 tab PO QAM 07/04/24 07/04/24 History dextromethorphan-guaifenesin 30 1 tab PO Q12H 07/04/24 07/04/24 History mg-600 mg tablet extended [id number] hr (Mucinex DM) latanoprost 0.005 % eye drops 1 drp OPB HS 07/04/24 07/04/24 History naproxen sodium 220 mg tablet 220 mg PO BID 07/04/24 07/04/24 History Patient History Medical History Abnormal urinalysis Aortic valve sclerosis Bladder stones History of colon polyps History of COVID-19 09/11/21 @ [facility] (asymptomatic, tested prior to procedure)--no issues Hearing deficit Centrilobular emphysema Left hip pain Anemia Lung nodule Acute pancreatitis Osteoarthritis Spinal stenosis B/L LE radiculopathy History of hypertension controlled since weight loss Mandibular fracture DDD (degenerative disc disease) BPH (benign prostatic hyperplasia) Surgical History History of ERCP (~11/30/20) History of esophagogastroduodenoscopy (EGD) last 09/29/21 @ [place] History of colonoscopy Previous back surgery History of tonsillectomy and adenoidectomy Hx of toe surgery HAD TOENAIL REMOVED IN OFFICE 12/2018 Hx of tonsillectomy Hx of hernia repair RIGHT INGUINAL History of carpal tunnel surgery RIGHT HAND History of appendectomy Family History Mother Liver cancer Social History Smoking Status: Former smoker Tobacco Type: Cigarettes Second Hand Exposure: No; Do You Dip or Chew Tobacco: No; Hx Alcohol Use: Yes Alcohol type: hard liquor Hx Substance Use: No Preferred Language: Mohawk Communication Ability: Impaired Communication Ability Comment: pt can communicate but can not always express needs d/t confusion. Visual Impairment: No Limitations Senior Construction Estimator Required: No Beliefs That Will Affect Care: None marital status: Current Living Situation: Spouse and Personal Care Facility Current Living Situation Comment: Lives at [facility] w/ Ibeth Other Information That Helps Us Care for You: No Feels Safe at Home: Yes Safety Concerns: Feels Safe At This Time Assistive Devices: Denture - Lower Review of Systems Review of Systems: All other findings negative except as noted in HPI. Physical Exam Constitutional: WD/WN, vitals as above Respiratory: normal respiratory effort Cardiovascular: Rate/Rhythm: regular rate Gastrointestinal (Abdomen): normal bowel sounds, soft, nontender, no hepatosplenomegaly Skin: no rashes, warm and dry Results & Data Vital Signs (Past 12 Hours) Vital Signs Temp Pulse Pulse Resp BP BP Pulse Ox 07/05/24 09:19 36.4 C L 78 18 122/65 96 07/05/24 08:49 36.4 C L 83 18 113/61 92 07/05/24 08:34 36.6 C 86 18 116/62 94 07/05/24 08:24 07/05/24 08:18 36.5 C 83 18 120/67 93 07/05/24 07:24 36.8 C 80 16 102/59 L 93 O2 Del Method 07/05/24 09:19 07/05/24 08:49 07/05/24 08:34 07/05/24 08:24 Room Air 07/05/24 08:18 07/05/24 07:24 Room Air Laboratory Results 07/05/24 07/04/24 07/04/24 Range/Units 07:00 22:33 17:55 WBC 13.00 H (4.8-10.8) K/ul RBC 2.50 L (4.70-6.10) M/uL Hgb 6.9 L* 7.2 L (14.0-18.0) g/dl Hct 21.9 L 22.9 L (42.0-52.0) % MCV 87.6 (80.0-100.0) fL MCH 27.6 (25.0-34.0) pg MCHC 31.5 L (32.0-36.0) g/dL RDW Std Deviation 45.4 (36.4-46.3) fL RDW Coeff of Jocelyn 14.3 (11.5-14.5) % Plt Count 224 (130-400) K/uL MPV 10.8 (9.4-12.4) fL Immature Gran % (Auto) 0.5 % Neut % (Auto) 89.0 % Lymph % (Auto) 3.8 % Harding % (Auto) 5.2 % Eos % (Auto) 1.2 % Baso % (Auto) 0.3 % Neut # (Auto) 11.58 H (1.40-6.50) K/uL Lymph # (Auto) 0.50 L (1.20-3.40) K/uL Harding # (Auto) 0.67 H (0.11-0.59) K/uL Eos # (Auto) 0.15 (0.00-0.50) K/uL Baso # (Auto) 0.04 (0.00-0.20) K/uL Immature Gran # (Auto) 0.06 (0.01-0.20) K/uL Polychromasia 1+ Hypochromasia Present Microcytosis Present Sodium 147 H (136-145) mmol/L Potassium 4.1 (3.5-5.1) mmol/L Chloride 114 H (98-107) mmol/L Carbon Dioxide 28 (21-32) mmol/L Anion Gap 5 (3-11) BUN 35 H (6-23) mg/dl Creatinine 0.67 (0.6-1.4) mg/dl Est Cr Clr Drug Dosing 73.9 ml/min eGFR 89.81 BUN/Creatinine Ratio 52.2 H (10-20) Glucose 109 H (70-99(Fasting)) mg/dl Calcium 9.0 (8.6-10.3) mg/dl Nasal Screen MRSA (PCR) Negative (Negative) Stl C. cayetanensis PCR (NotDetected) Stool Rotavirus A PCR (NotDetected) Stl Adenov F 40/41 PCR (NotDetected) Stool Astrovirus (PCR) (NotDetected) Stool Campylobacter PCR (NotDetected) Stl C. diff Tox B Gene (Neg) Stool Cryptosporidium PCR (NotDetected) Stl E.coli Shiga Tox PCR (NotDetected) Stl Enterotoxigenic E PCR (NotDetected) Stool EPEC (PCR) (NotDetected) Stool EAEC (PCR) (NotDetected) Stl E. histolytica PCR (NotDetected) Stool Giardia Lamblia PCR (NotDetected) Stool Salmonella PCR (NotDetected) Stool Sapovirus (PCR) (NotDetected) Stl P. shigelloides PCR (NotDetected) Stl Shigella/EIEC PCR (NotDetected) St Y.enterocolitica PCR (NotDetected) Stool Vibrio (PCR) (NotDetected) Stl Vibrio cholerae PCR (NotDetected) Stl Norovirus GI/GII PCR (NotDetected) Blood Type Antibody Screen Crossmatch 07/04/24 07/04/24 07/04/24 Range/Units 14:33 11:20 04:03 WBC (4.8-10.8) K/ul RBC (4.70-6.10) M/uL Hgb 8.2 L (14.0-18.0) g/dl Hct 25.9 L (42.0-52.0) % MCV (80.0-100.0) fL MCH (25.0-34.0) pg MCHC (32.0-36.0) g/dL RDW Std Deviation (36.4-46.3) fL RDW Coeff of Jocelyn (11.5-14.5) % Plt Count (130-400) K/uL MPV (9.4-12.4) fL Immature Gran % (Auto) % Neut % (Auto) % Lymph % (Auto) % Harding % (Auto) % Eos % (Auto) % Baso % (Auto) % Neut # (Auto) (1.40-6.50) K/uL Lymph # (Auto) (1.20-3.40) K/uL Harding # (Auto) (0.11-0.59) K/uL Eos # (Auto) (0.00-0.50) K/uL Baso # (Auto) (0.00-0.20) K/uL Immature Gran # (Auto) (0.01-0.20) K/uL Polychromasia Hypochromasia Microcytosis Sodium (136-145) mmol/L Potassium (3.5-5.1) mmol/L Chloride (98-107) mmol/L Carbon Dioxide (21-32) mmol/L Anion Gap (3-11) BUN (6-23) mg/dl Creatinine (0.6-1.4) mg/dl Est Cr Clr Drug Dosing ml/min eGFR BUN/Creatinine Ratio (10-20) Glucose (70-99(Fasting)) mg/dl Calcium (8.6-10.3) mg/dl Nasal Screen MRSA (PCR) (Negative) Stl C. cayetanensis PCR Not Detected (NotDetected) Stool Rotavirus A PCR Not Detected (NotDetected) Stl Adenov F 40/41 PCR Not Detected (NotDetected) Stool Astrovirus (PCR) Not Detected (NotDetected) Stool Campylobacter PCR Not Detected (NotDetected) Stl C. diff Tox B Gene Negative Cdiff Gene (Neg) Stool Cryptosporidium PCR Not Detected (NotDetected) Stl E.coli Shiga Tox PCR Not Detected (NotDetected) Stl Enterotoxigenic E PCR Not Detected (NotDetected) Stool EPEC (PCR) Not Detected (NotDetected) Stool EAEC (PCR) Not Detected (NotDetected) Stl E. histolytica PCR Not Detected (NotDetected) Stool Giardia Lamblia PCR Not Detected (NotDetected) Stool Salmonella PCR Not Detected (NotDetected) Stool Sapovirus (PCR) Not Detected (NotDetected) Stl P. shigelloides PCR Not Detected (NotDetected) Stl Shigella/EIEC PCR Not Detected (NotDetected) St Y.enterocolitica PCR Not Detected (NotDetected) Stool Vibrio (PCR) Not Detected (NotDetected) Stl Vibrio cholerae PCR Not Detected (NotDetected) Stl Norovirus GI/GII PCR Not Detected (NotDetected) Blood Type O Positive Antibody Screen NEGATIVE Crossmatch See Detail PG Care Time/CCT Total # of Minutes Spent Total Time Spent with Patient: Total time spent is greater than 50% in coordination of care (as documented) at patient's floor/unit and/or counseling patient: Coding Level of Care Code 32147 INT INP/OBS CARE 2/55MIN Diagnoses Rectal bleeding K62.5
[2024-07-05] MEDS: PIPERACILLIN/TAZOBACTAM 4.5 GM/100 ML BAG IV ONE (11:30)
[2024-07-05] MEDS: SODIUM CHLORIDE 0.45 % 1,000 ML IV SCH (11:31)
--- NOTE | 2024-07-05 12:09 | Critical Care Consultation ---
Date of Consultation July 05, 2024 Assessment & Plan (1) Diverticulitis of colon with hemorrhage: Reason Critically Ill: 89-year-old male who is DNR does not want heroic measures undertaken in event of cardiac arrest sent to ICU for close observation and monitoring given possible ongoing gastrointestinal hemorrhage PLAN: Resp: Saturating well on room air CV: Aortic valve sclerosis noted in prior records History of hypertension reported to be controlled since weight loss Fluids/Renal: BPH -On Flomax ID: On Zosyn for possible diverticulitis -Transition to cefazolin Flagyl: Likely low risk community-acquired GI/Nutrition: Known diverticulosis with probable diverticular bleeding -Reviewed GI consultation -Patient refusing NG placement, will encourage p.o. intake of bowel prep N.p.o. after midnight, stable for clears today Heme: Acute blood loss anemia -Goal hemoglobin between 8 and 9 patient to receive second unit packed red blood cells -Will hold second administration of packed red blood cells as he has a tagged red blood cell scan that should facilitate hemoglobin between 8 and 9 DVT prophylaxis: SCDs as chemoprophylaxis contraindicated secondary to bleeding Endocrine: ICU hyperglycemia protocol Vascular access: Peripheral IVs Code Status: DNR/DNI in event of cardiac arrest Disposition: ICU Discussed with hospital medicine will discontinue the nuclear medicine scan, ordering additional unit of packed red blood cells, then consider CTA following blood administration (2) Rectal bleeding: Supervising Physician Co-Signing Physician Notes I have personally spent 35 minutes of critical care time in the direct management of this patient. This is a life/limb threatening event. This includes time spent evaluating patient, direct bedside care, chart review, placing orders, interpretation of diagnostic studies, discussion with consultants, patient, and/or family members regarding treatment decisions, as well as other required patient management activities. This time is exclusive of all separately billable procedures, and teaching time and separate from and in addition to any other critical care service time. History of Present Illness Reason for Consultation: Acute blood loss secondary to GI losses Attending Physician: Harrison Arnold DO History of Present Illness Patient is an 89-year-old male who was sent to the emergency department for evaluation of possible rectal bleeding. Patient's initial hemoglobin in the ED was greater than 9 he was admitted to telemetry and underwent additional monitoring. He has had mild bloody output since then he received 1 unit of packed red blood cells and will be receiving a second given at high risk for ischemic heart disease with possible active GI bleeding. Patient declined NG tube placement which was going to allow for gastric lavage given the possible concern for an upper GI source given mild elevation in BUN and recent NSAID use. Patient is agreeable with taking oral bowel prep. Currently he is asymptomatic. No abdominal pain during my evaluation. Allergies Allergy/AdvReac Type Severity Reaction Status Date / Time meloxicam Allergy Mild RASH Verified 07/04/24 09:40 hydrochlorothiazide AdvReac Severe PANCREATITI Verified 07/04/24 09:40 S morphine AdvReac Severe convulsions Verified 07/04/24 09:40 gabapentin AdvReac Intermediate Fainting Verified 10/25/23 18:54 Home Medications Medication Instructions Recorded Confirmed Type tamsulosin 0.4 mg capsule (Flomax) 0.8 mg PO HS 11/11/18 07/04/24 History cholecalciferol (vitamin D3) 50 50 mcg PO QAM 04/24/21 07/04/24 History mcg (2,000 unit) capsule (Vitamin D3) acetaminophen 325 mg tablet 650 mg PO Q6H PRN FEVER/PAIN 05/13/23 07/04/24 History (Tylenol) acetaminophen 500 mg tablet 1,000 mg PO BID 05/13/23 07/04/24 History hydrocortisone 1 % topical cream 1 applic topical QID 05/13/23 07/04/24 History pantoprazole 40 mg tablet,delayed 40 mg PO QAM gastric erosions 05/13/23 07/04/24 History release (Protonix) polyethylene glycol 3350 17 gram 17 g PO QAM PRN Constipation 05/13/23 07/04/24 History oral powder packet (Miralax) diclofenac sodium 1 % topical gel 4 g topical Q6H PRN LEFT KNEE PAIN 10/25/23 07/04/24 History aspirin 81 mg tablet,delayed 81 mg PO BID #60 tabs 11/10/23 07/04/24 Rx release Prevagen 1 tab PO QAM 07/04/24 07/04/24 History dextromethorphan-guaifenesin 30 1 tab PO Q12H 07/04/24 07/04/24 History mg-600 mg tablet extended [id number] hr (Mucinex DM) latanoprost 0.005 % eye drops 1 drp OPB HS 07/04/24 07/04/24 History naproxen sodium 220 mg tablet 220 mg PO BID 07/04/24 07/04/24 History Patient History Medical History Abnormal urinalysis Aortic valve sclerosis Bladder stones History of colon polyps History of COVID-19 09/11/21 @ [facility] (asymptomatic, tested prior to procedure)--no issues Hearing deficit Acute pancreatitis Osteoarthritis Spinal stenosis B/L LE radiculopathy History of hypertension controlled since weight loss Mandibular fracture Surgical History History of ERCP (~11/30/20) History of esophagogastroduodenoscopy (EGD) last 09/29/21 @ [place] History of colonoscopy Previous back surgery History of tonsillectomy and adenoidectomy Hx of toe surgery HAD TOENAIL REMOVED IN OFFICE 12/2018 Hx of tonsillectomy Hx of hernia repair RIGHT INGUINAL History of carpal tunnel surgery RIGHT HAND History of appendectomy Family History Mother Liver cancer Social History Smoking Status: Former smoker Tobacco Type: Cigarettes Second Hand Exposure: No; Do You Dip or Chew Tobacco: No; Hx Alcohol Use: Yes Alcohol type: hard liquor Hx Substance Use: No Preferred Language: Bermudian Communication Ability: Effective Communication Ability Comment: pt can communicate but can not always express needs d/t confusion. Visual Impairment: No Limitations Security Chief Museum Required: No Beliefs That Will Affect Care: None marital status: Current Living Situation: Spouse and Personal Care Facility Current Living Situation Comment: Lives at [facility] [facility] w/ Ibeth Feels Safe at Home: Yes Assistive Devices: Walker Physical Exam Physical Exam: General: Alert. nontoxic. Skin: Warm, dry, Head: Atraumatic Ears, nose, mouth and throat: airway patent Cardiovascular: Normal peripheral perfusion Respiratory: no respiratory distress Gastrointestinal: Non distended, no pain or tenderness with palpation Musculoskeletal: No deformity Results & Data Results & Data Vital Signs (Past 12 Hours) Vital Signs Temp Pulse Pulse Resp BP BP Pulse Ox 07/05/24 11:25 36.8 C 79 18 128/69 93 07/05/24 10:19 36.3 C L 85 18 138/65 93 07/05/24 09:19 36.4 C L 78 18 122/65 96 07/05/24 08:49 36.4 C L 83 18 113/61 92 07/05/24 08:34 36.6 C 86 18 116/62 94 07/05/24 08:24 07/05/24 08:18 36.5 C 83 18 120/67 93 07/05/24 07:24 36.8 C 80 16 102/59 L 93 O2 Del Method 07/05/24 11:25 07/05/24 10:19 07/05/24 09:19 07/05/24 08:49 07/05/24 08:34 07/05/24 08:24 Room Air 07/05/24 08:18 07/05/24 07:24 Room Air Critical Care Results & Data Vital Signs (Past 12 Hours) Vital Signs Temp Pulse Pulse Resp BP BP Pulse Ox 07/05/24 13:22 36.6 C 07/05/24 13:00 77 24 92 07/05/24 13:00 140/53 L 07/05/24 12:54 77 23 96 07/05/24 12:46 139/75 07/05/24 11:25 36.8 C 79 18 128/69 93 07/05/24 10:19 36.3 C L 85 18 138/65 93 07/05/24 09:19 36.4 C L 78 18 122/65 96 07/05/24 08:49 36.4 C L 83 18 113/61 92 07/05/24 08:34 36.6 C 86 18 116/62 94 07/05/24 08:24 07/05/24 08:18 36.5 C 83 18 120/67 93 07/05/24 07:24 36.8 C 80 16 102/59 L 93 O2 Del Method 07/05/24 13:22 07/05/24 13:00 07/05/24 13:00 07/05/24 12:54 Room Air 07/05/24 12:46 07/05/24 11:25 07/05/24 10:19 07/05/24 09:19 07/05/24 08:49 07/05/24 08:34 12/26/24 08:24 Room Air 07/05/24 08:18 07/05/24 07:24 Room Air Lab & Micro Results (Past 24 Hours) RBC 2.50 M/uL (4.70-6.10) L 07/05/24 WBC 13.00 K/ul (4.8-10.8) H 07/05/24 Hgb 7.6 g/dl (14.0-18.0) L 07/05/24 Hct 23.7 % (42.0-52.0) L 07/05/24 MCV 87.6 fL (80.0-100.0) 07/05/24 MCH 27.6 pg (25.0-34.0) 07/05/24 MCHC 31.5 g/dL (32.0-36.0) L 07/05/24 RDW Standard Deviation 45.4 fL (36.4-46.3) 07/05/24 RDW Coefficient of Variation 14.3 % (11.5-14.5) 07/05/24 Plt Count 224 K/uL (130-400) 07/05/24 MPV 10.8 fL (9.4-12.4) 07/05/24 Neutrophils (%) (Auto) 89.0 % 07/05/24 Lymphocytes (%) (Auto) 3.8 % 07/05/24 Monocytes # (Auto) 0.67 K/uL (0.11-0.59) H 07/05/24 Eosinophils # (Auto) 0.15 K/uL (0.00-0.50) 07/05/24 Immature Granulocyte % (Auto) 0.5 % 07/05/24 Neutrophils # (Auto) 11.58 K/uL (1.40-6.50) H 07/05/24 Lymphocytes # (Auto) 0.50 K/uL (1.20-3.40) L 07/05/24 Monocytes # (Auto) 0.67 K/uL (0.11-0.59) H 07/05/24 Eosinophils # (Auto) 0.15 K/uL (0.00-0.50) 07/05/24 Basophils # (Auto) 0.04 K/uL (0.00-0.20) 07/05/24 Immature Granulocyte # (Auto) 0.06 K/uL (0.01-0.20) 4 Polychromasia 1+ 07/05/24 Hypochromasia Present 07/05/24 Microcytosis Present 07/05/24 Na 147 mmol/L (136-145) H 07/05/24 K 4.1 mmol/L (3.5-5.1) 07/05/24 Cl 114 mmol/L (98-107) H 07/05/24 CO2 28 mmol/L (21-32) 07/05/24 Anion Gap 5 (3-11) 07/05/24 BUN 35 mg/dl (6-23) H 07/05/24 Creatinine 0.67 mg/dl (0.6-1.4) 07/05/24 BUN/Creatinine Ratio 52.2 (10-20) H 07/05/24 Glu 109 mg/dl (70-99(Fasting)) H 07/05/24 Ca 9.0 mg/dl (8.6-10.3) 07/05/24 Calcium Level 9.0 mg/dl (8.6-10.3) 07/05/24 07:00 I & O Totals 24 Hours 07/04/24 07/05/24 07/06/24 06:59 06:59 06:59 Intake Total 120 / 120 120 / 120 484 / 484 Output Total 426 / 426 352 / 352 Balance 120 / 120 -306 / -306 132 / 132 Cumulative 07/04/24 03:46 thru 07/05/24 13:29 Intake Total 724 Output Total 778 Balance -54 RT Ventilator Mngmt (Last Documented) Ventilator Ordered Settings Respiratory Rate 24 07/05/24 13:00 Ventilator - PT Measurements Respiratory Rate 24 Coding Level of Care Code 38894 CRITICAL CARE 1ST 30-74M Diagnoses Diverticulitis of colon with hemorrhage K57.33 Rectal bleeding K62.5
[2024-07-05 12:12] LABS: Hematocrit (blood only) 23.7 % (42.0-52.0); Hemoglobin 7.6 g/dl (14.0-18.0)
--- NOTE | 2024-07-05 14:10 | Hospitalist Progress Note ---
Date of Service July 05, 2024 Assessment & Plan (1) Acute blood loss anemia: (2) Diverticulitis of colon with hemorrhage: (3) Diverticulosis: (4) Dehydration: Plan Patient's with increasing number of bloody stools, concern for possible active bleeding. Patient is critically ill. High risk for further decompensation. Requires hospital level care including ICU level care with multiple specialty interventions, frequent laboratory monitoring and IV medications. Communication/phone call with GI, Dr. Bellamy. Recommending transfer to ICU for close monitoring, NG tube for possible lavage and prep for colonoscopy. Also consider bleeding scan versus CTA of the abdomen to evaluate for rapid active bleeding. Communication with on air announcer. Updated on GI recommendation and transferred to the ICU. Updated patient's son via phone. Where patient has been transferred to the ICU and plans for ongoing care Continue to monitor hemoglobin, transfuse to maintain hemoglobin greater than 7/asymptomatic. Transition to IV antibiotics and IV Protonix Continue IV fluids. Admission and Anticipated Discharge Date Admission Date: July 04, 2024 Subjective Since initial visit this morning patient has had 2 large bloody stools. Patient really denies any significant symptoms. Denies shortness of breath or chest pain. Physical Exam Physical Exam: Constitutional: Nontoxic HEENT: Mucous membranes moist. Lungs: Clear to auscultation, decreased, no wheezes rales or rhonchi CV: S1-S2, regular Abdomen: Soft, minimal tenderness lower quadrants, nondistended Extremities: No significant edema Neuro: No focal deficits Psych: Cooperative, normal mood Results & Data Results & Data Vital Signs (Past 12 Hours) Vital Signs Temp Pulse Pulse Resp BP BP Pulse Ox 07/05/24 13:22 36.6 C 07/05/24 13:00 07/05/24 13:00 77 24 92 07/05/24 13:00 140/53 L 07/05/24 12:54 77 23 96 07/05/24 12:46 139/75 07/05/24 11:25 36.8 C 79 18 128/69 93 07/05/24 10:19 36.3 C L 85 18 138/65 93 07/05/24 09:19 36.4 C L 78 18 122/65 96 07/05/24 08:49 36.4 C L 83 18 113/61 92 07/05/24 08:34 36.6 C 86 18 116/62 94 07/05/24 08:24 07/05/24 08:18 36.5 C 83 18 120/67 93 07/05/24 07:24 36.8 C 80 16 102/59 L 93 O2 Del Method 07/05/24 13:22 07/05/24 13:00 Room Air 07/05/24 13:00 07/05/24 13:00 07/05/24 12:54 Room Air 07/05/24 12:46 07/05/24 11:25 07/05/24 10:19 07/05/24 09:19 07/05/24 08:49 07/05/24 08:34 07/05/24 08:24 Room Air 07/05/24 08:18 07/05/24 07:24 Room Air Diagnostic Findings Reviewed imaging, laboratory and diagnostic studies. Pertinent findings as below. Reviewed multiple H&H Critical Care Time 43 minutes
[2024-07-05] MEDS ORDERED: PIPERACILLIN/TAZOBACTAM 4.5 GM/100 ML BAG IV SCH (16:00)
[2024-07-05] MEDS: metroNIDAZOLE 500 MG/100 ML BAG IV SCH (16:12)
[2024-07-05] MEDS: ceFAZolin 2000MG 2,000 MG/15 ML SYR IV SCH (16:13)
[2024-07-05] MEDS: LAVAGE SOLUTION 4000ML PO ONE (16:44)
[2024-07-05 18:13] LABS: Hematocrit (blood only) 29.5 % (42.0-52.0); Hemoglobin 9.7 g/dl (14.0-18.0)
--- NOTE | 2024-07-05 18:48 | Communication Note ---
Date of Service: July 05, 2024 Patient with increasing confusion, mild agitation, not very redirectable pulled out IV lines and then had large voluminous bloody bowel movement with clots. And concerned that this represents active bleeding given clots and color. Patient had received second unit of packed red blood cells given the clinical concern for active hemorrhage I ordered 1/3 unit to be administered. Repeat H&H was obtained per routine order after the bowel movement. Repeat was 9.7 however this may not have equilibrium aided and may not reflect his intravascular stat us. GI has been notified the plan is to get the patient to CT scan to hopefully localize the bleeding source I have personally spent 40 minutes of critical care time in the direct management of this patient. This is a life/limb threatening event. This includes time spent evaluating patient, direct bedside care, chart review, placing orders, interpretation of diagnostic studies, discussion with consultants, patient, and/or family members regarding treatment decisions, as well as other required patient management activities. This time is exclusive of all separately billable procedures, and teaching time and separate from and in addition to any other critical care service time. Coding Level of Care Code 94570 CRITICAL CARE EA ADD 30M
[2024-07-05] MEDS: OPTIRAY 320 125ml IV ONE (18:59)
--- NOTE | 2024-07-05 19:17 | CT Scan Report ---
Exam(s): CTA ABDOMEN + PELVIS With Contrast IV Amt: 117ml optiray 320 EXAM: CT Angiography Abdomen and Pelvis With Intravenous Contrast CLINICAL HISTORY: Reason for exam: diverticular bleeding. TECHNIQUE: Axial computed tomographic angiography images of the abdomen and pelvis with intravenous contrast. CTDI is 21 mGy and DLP is 1025 mGy-cm. Automated exposure control was utilized for the study. A dose lowering technique was utilized adhering to the principles of ALARA. MIP reconstructed images were created and reviewed. CONTRAST: Patient received 117ml optiray 320 of IV contrast COMPARISON: 07/04/2024 FINDINGS: VASCULATURE: Aorta: No acute findings. No abdominal aortic aneurysm. No dissection. Celiac trunk and mesenteric arteries: No acute findings. No occlusion or significant stenosis. Renal arteries: No acute findings. No occlusion or significant stenosis. Iliac arteries: No acute findings. No occlusion or significant stenosis. Lung bases: Unremarkable. No mass. No consolidation. ABDOMEN: Liver: Unremarkable. No mass. Gallbladder and bile ducts: Cholecystectomy. Pneumobilia. No ductal dilation. Pancreas: Unremarkable. No ductal dilation. No mass. Spleen: Unremarkable. No splenomegaly. Adrenals: Unremarkable. No mass. Kidneys and ureters: Unremarkable. No hydronephrosis. No solid mass. Stomach and bowel: No active GI bleed. Colonic diverticulosis without diverticulitis. Liquid colonic and rectal contents which could represent blood products or diarrheal illness. No obstruction. PELVIS: Appendix: No findings to suggest acute appendicitis. Bladder: Unremarkable. No mass. Reproductive: Unremarkable as visualized. ABDOMEN and PELVIS: Intraperitoneal space: Unremarkable. No significant fluid collection. No free air. Bones/joints: Left hip arthroplasty. Degenerative changes in the spine. No acute fracture. No dislocation. Soft tissues: Unremarkable. Lymph nodes: Unremarkable. No enlarged lymph nodes. IMPRESSION: 1. No active GI bleed. 2. Colonic diverticulosis without diverticulitis. 3. Liquid colonic and rectal contents which could represent blood products or diarrheal illness. Electronically signed by: Haris Pérez MD 07/05/24 19:16 PM
[2024-07-05] MEDS: PANTOprazole 40 MG/10 ML SYR IV SCH (21:19)
[2024-07-06 01:02] LABS: Hematocrit (blood only) 24.9 % (42.0-52.0); Hemoglobin 8.5 g/dl (14.0-18.0)
[2024-07-06 01:49] LABS: Fibrinogen 277 mg/dl (184-400); INR 1.1 (0.9-1.1); Prothrombin Time 11.9 Seconds (9.0-12.0)
[2024-07-06] MEDS ORDERED: SODIUM CHLORIDE 0.9% 50 ML IV PRN (02:23)
[2024-07-06] MEDS ORDERED: SODIUM CHLORIDE 0.9% 100 ML IV PRN (02:23)
[2024-07-06 07:00] LABS: Hematocrit (blood only) 28.1 % (42.0-52.0); Hemoglobin 9.4 g/dl (14.0-18.0); Mean Corpuscular Hemoglobin 28.7 pg (25.0-34.0); Mean Corpuscular Hgb Conc 33.5 g/dL (32.0-36.0); Mean Corpuscular Volume 85.7 fL (80.0-100.0); Mean Platelet Volume 10.3 fL (9.4-12.4); Nucleated RBC # (auto) 0.02 K/uL (0.00-0.12); Nucleated RBC % (auto) 0.1 %; Platelet Count 176 K/uL (130-400); RDW Coefficient of Variation 14.4 % (11.5-14.5); RDW Standard Deviation 44.9 fL (36.4-46.3); Red Blood Count 3.28 M/uL (4.70-6.10); White Blood Count 15.78 K/ul (4.8-10.8)
[2024-07-06 07:12] LABS: Calcium 8.1 mg/dl (8.6-10.3); Potassium 3.5 mmol/L (3.5-5.1)
[2024-07-06 07:18] LABS: BUN Creatinine Ratio 36.8 (10-20); Creatinine Clr Calc Pharmacy 86.9 ml/min
--- NOTE | 2024-07-06 08:31 | Critical Care Progress Note ---
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 -Anticipate colonoscopy today Heme: Acute blood loss anemia -Goal hemoglobin between 8 and 9 patient to receive second unit packed red blood cells -Given total of 4 units packed red blood cells, fourth unit was given in the setting of suspected ongoing blood loss DVT prophylaxis: SCDs as chemoprophylaxis contraindicated secondary to bleeding Endocrine: ICU hyperglycemia protocol Vascular access: Peripheral IVs Code Status: DNR/DNI in event of cardiac arrest Disposition: ICU (2) Rectal bleeding: (3) SunDown syndrome: Admission and Anticipated Discharge Date Admission Date: July 04, 2024 Supervising Physician Co-Signing Physician Notes I have personally spent 40 minutes of critical care time in the direct management of this patient. This is a life/limb threatening event. This includes time spent evaluating patient, direct bedside care, chart review, placing orders, interpretation of diagnostic studies, discussion with consultants, patient, and/or family members regarding treatment decisions, as well as other required patient management activities. This time is exclusive of all separately billable procedures, and teaching time and separate from and in addition to any other critical care service time. Subjective No significant overnight events after my evening evaluation. Required bilateral mitts overnight for restraint as he was not redirectable and discontinued IVs Physical Exam Physical Exam: General: Alert. nontoxic. Skin: Warm, dry, Head: Atraumatic Ears, nose, mouth and throat: airway patent Cardiovascular: Normal peripheral perfusion Respiratory: no respiratory distress Gastrointestinal: Non distended Musculoskeletal: No deformity Results & Data Results & Data Vital Signs (Past 12 Hours) Vital Signs Temp Pulse Resp BP Pulse Ox O2 Flow Rate 07/06/24 05:15 137/56 L 07/06/24 05:15 137/56 L 07/06/24 05:15 137/56 L 07/06/24 05:15 36.6 C 137/56 L 07/06/24 05:15 137/56 L 07/06/24 05:14 70 19 100 07/06/24 05:01 131/57 L 07/06/24 05:01 131/57 L 07/06/24 04:47 70 21 99 07/06/24 04:46 122/57 L 07/06/24 04:35 74 24 97 07/06/24 04:32 155/64 H 07/06/24 04:15 115/57 L 07/06/24 04:15 115/57 L 07/06/24 04:14 66 17 99 07/06/24 03:56 74 23 99 07/06/24 03:45 131/48 L 07/06/24 03:45 131/48 L 07/06/24 03:38 36.6 C 63 18 162/63 H 98 2 07/06/24 03:30 114/53 L 07/06/24 03:21 73 23 100 07/06/24 03:18 36.6 C 71 18 120/51 L 98 2 07/06/24 03:15 120/51 L 07/06/24 03:12 71 21 95 07/06/24 03:03 72 20 97 07/06/24 03:01 127/40 L 07/06/24 02:54 69 21 98 07/06/24 02:30 115/50 L 07/06/24 02:30 67 15 96 07/06/24 02:18 67 17 95 07/06/24 02:15 120/54 L 07/06/24 02:15 120/54 L 07/06/24 02:15 120/54 L 07/06/24 02:01 133/56 L 07/06/24 01:51 70 13 99 07/06/24 01:45 72 20 100 07/06/24 01:45 131/61 07/06/24 01:45 131/61 07/06/24 01:30 76 22 97 07/06/24 01:30 117/61 07/06/24 01:30 117/61 07/06/24 01:30 117/61 07/06/24 01:22 136/73 07/06/24 01:22 136/73 07/06/24 01:21 90 23 95 07/06/24 01:09 69 21 99 07/06/24 01:00 117/63 07/06/24 00:54 75 22 100 07/06/24 00:50 120/55 L 07/06/24 00:50 120/55 L 07/06/24 00:48 74 23 98 07/06/24 00:30 132/56 L 07/06/24 00:18 84 29 H 07/06/24 00:16 121/63 07/06/24 00:16 121/63 07/06/24 00:16 121/63 07/05/24 23:57 70 15 99 07/05/24 23:45 73 25 H 97 07/05/24 23:45 115/49 L 07/05/24 23:30 104/50 L 07/05/24 23:21 79 25 H 99 07/05/24 23:09 133/69 07/05/24 23:06 130/50 L 07/05/24 23:06 80 22 98 07/05/24 23:00 96 H 23 100 07/05/24 22:46 116/83 07/05/24 22:46 116/83 07/05/24 22:46 116/83 07/05/24 22:46 116/83 07/05/24 22:46 116/83 07/05/24 22:45 84 24 92 07/05/24 22:31 112/84 07/05/24 22:31 112/84 07/05/24 22:21 82 22 97 07/05/24 22:16 88/70 L 07/05/24 22:09 89 24 100 07/05/24 22:03 75 19 100 Critical Care Results & Data Vital Signs (Past 12 Hours) Vital Signs Temp Pulse Resp BP Pulse Ox O2 Flow Rate 07/06/24 05:15 137/56 L 07/06/24 05:15 137/56 L 07/06/24 05:15 137/56 L 07/06/24 05:15 36.6 C 137/56 L 07/06/24 05:15 137/56 L 07/06/24 05:14 70 19 100 07/06/24 05:01 131/57 L 07/06/24 05:01 131/57 L 07/06/24 04:47 70 21 99 07/06/24 04:46 122/57 L 07/06/24 04:35 74 24 97 07/06/24 04:32 155/64 H 07/06/24 04:15 115/57 L 07/06/24 04:15 115/57 L 07/06/24 04:14 66 17 99 07/06/24 03:56 74 23 99 07/06/24 03:45 131/48 L 07/06/24 03:45 131/48 L 07/06/24 03:38 36.6 C 63 18 162/63 H 98 2 07/06/24 03:30 114/53 L 07/06/24 03:21 73 23 100 07/06/24 03:18 36.6 C 71 18 120/51 L 98 2 07/06/24 03:15 120/51 L 07/06/24 03:12 71 21 95 07/06/24 03:03 72 20 97 07/06/24 03:01 127/40 L 07/06/24 02:54 69 21 98 07/06/24 02:30 115/50 L 07/06/24 02:30 67 15 96 07/06/24 02:18 67 17 95 07/06/24 02:15 120/54 L 07/06/24 02:15 120/54 L 07/06/24 02:15 120/54 L 07/06/24 02:01 133/56 L 07/06/24 01:51 70 13 99 07/06/24 01:45 72 20 100 07/06/24 01:45 131/61 07/06/24 01:45 131/61 07/06/24 01:30 76 22 97 07/06/24 01:30 117/61 07/06/24 01:30 117/61 07/06/24 01:30 117/61 07/06/24 01:22 136/73 07/06/24 01:22 136/73 07/06/24 01:21 90 23 95 07/06/24 01:09 69 21 99 07/06/24 01:00 117/63 07/06/24 00:54 75 22 100 07/06/24 00:50 120/55 L 07/06/24 00:50 120/55 L 07/06/24 00:48 74 23 98 07/06/24 00:30 132/56 L 07/06/24 00:18 84 29 H 07/06/24 00:16 121/63 07/06/24 00:16 121/63 07/06/24 00:16 121/63 07/05/24 23:57 70 15 99 07/05/24 23:45 73 25 H 97 07/05/24 23:45 115/49 L 07/05/24 23:30 104/50 L 07/05/24 23:21 79 25 H 99 07/05/24 23:09 133/69 07/05/24 23:06 130/50 L 07/05/24 23:06 80 22 98 07/05/24 23:00 96 H 23 100 07/05/24 22:46 116/83 07/05/24 22:46 116/83 07/05/24 22:46 116/83 07/05/24 22:46 116/83 07/05/24 22:46 116/83 07/05/24 22:45 84 24 92 07/05/24 22:31 112/84 07/05/24 22:31 112/84 07/05/24 22:21 82 22 97 07/05/24 22:16 88/70 L 07/05/24 22:09 89 24 100 07/05/24 22:03 75 19 100 Lab & Micro Results (Past 24 Hours) RBC 3.28 M/uL (4.70-6.10) L 07/06/24 WBC 15.78 K/ul (4.8-10.8) H 07/06/24 Hgb 9.4 g/dl (14.0-18.0) L 07/06/24 Hct 28.1 % (42.0-52.0) L 07/06/24 MCV 85.7 fL (80.0-100.0) 07/06/24 MCH 28.7 pg (25.0-34.0) 07/06/24 MCHC 33.5 g/dL (32.0-36.0) 07/06/24 RDW Standard Deviation 44.9 fL (36.4-46.3) 07/06/24 RDW Coefficient of Variation 14.4 % (11.5-14.5) 07/06/24 Plt Count 176 K/uL (130-400) 07/06/24 MPV 10.3 fL (9.4-12.4) 07/06/24 Nucleated Red Blood Cells % (auto) 0.1 % 07/06 Nucleated RBC Absolute Count (auto) 0.02 K/uL (0.00-0.12) 1 09/06/23 Na 144 mmol/L (136-145) 07/06/24 K 3.5 mmol/L (3.5-5.1) 07/06/24 Cl 113 mmol/L (98-107) H 07/06/24 CO2 26 mmol/L (21-32) 07/06/24 Anion Gap 5 (3-11) 07/06/24 BUN 21 mg/dl (6-23) 07/06/24 Creatinine 0.57 mg/dl (0.6-1.4) L 07/06/24 BUN/Creatinine Ratio 36.8 (10-20) H 07/06/24 Glu 96 mg/dl (70-99(Fasting)) 07/06/24 Ca 8.1 mg/dl (8.6-10.3) L 07/06/24 Calcium Level 8.1 mg/dl (8.6-10.3) L 07/06/24 06:33 Prothromb Time International Ratio 1.1 (0.9-1.1) 07/06/24 00:5 1 Diagnostic Findings (Past 24 Hours) Abdomen/Pelvis CTA 07/05/24 18:00 Exam(s): CTA ABDOMEN + PELVIS With Contrast IV Amt: 117ml optiray 320 EXAM: CT Angiography Abdomen and Pelvis With Intravenous Contrast CLINICAL HISTORY: Reason for exam: diverticular bleeding. TECHNIQUE: Axial computed tomographic angiography images of the abdomen and pelvis with intravenous contrast. CTDI is 21 mGy and DLP is 1025 mGy-cm. Automated exposure control was utilized for the study. A dose lowering technique was utilized adhering to the principles of ALARA. MIP reconstructed images were created and reviewed. CONTRAST: Patient received 117ml optiray 320 of IV contrast COMPARISON: 07/04/2024 FINDINGS: VASCULATURE: Aorta: No acute findings. No abdominal aortic aneurysm. No dissection. Celiac trunk and mesenteric arteries: No acute findings. No occlusion or significant stenosis. Renal arteries: No acute findings. No occlusion or significant stenosis. Iliac arteries: No acute findings. No occlusion or significant stenosis. Lung bases: Unremarkable. No mass. No consolidation. ABDOMEN: Liver: Unremarkable. No mass. Gallbladder and bile ducts: Cholecystectomy. Pneumobilia. No ductal dilation. Pancreas: Unremarkable. No ductal dilation. No mass. Spleen: Unremarkable. No splenomegaly. Adrenals: Unremarkable. No mass. Kidneys and ureters: Unremarkable. No hydronephrosis. No solid mass. Stomach and bowel: No active GI bleed. Colonic diverticulosis without diverticulitis. Liquid colonic and rectal contents which could represent blood products or diarrheal illness. No obstruction. PELVIS: Appendix: No findings to suggest acute appendicitis. Bladder: Unremarkable. No mass. Reproductive: Unremarkable as visualized. ABDOMEN and PELVIS: Intraperitoneal space: Unremarkable. No significant fluid collection. No free air. Bones/joints: Left hip arthroplasty. Degenerative changes in the spine. No acute fracture. No dislocation. Soft tissues: Unremarkable. Lymph nodes: Unremarkable. No enlarged lymph nodes. IMPRESSION: 1. No active GI bleed. 2. Colonic diverticulosis without diverticulitis. 3. Liquid colonic and rectal contents which could represent blood products or diarrheal illness. Electronically signed by: Haris Pérez MD 07/05/24 19:16 PM I & O Totals 24 Hours 07/05/24 07/06/24 07/07/24 06:59 06:59 06:59 Intake Total 120 / 120 2174.667 / 2174.667 Output Total 426 / 426 3552 / 3552 Balance -306 / -306 -1377.333 / -1377.333 Cumulative 07/04/24 03:46 thru 07/06/24 06:00 Intake Total 2414.667 Output Total 3978 Balance -1563.333 RT Ventilator Mngmt (Last Documented) Ventilator Ordered Settings Respiratory Rate 19 07/06/24 05:14 Ventilator - PT Measurements Respiratory Rate 19 Coding Level of Care Code 79667 CRITICAL CARE 1ST 30-74M Diagnoses Diverticulitis of colon with hemorrhage K57.33 Rectal bleeding K62.5 SunDown syndrome F05
--- NOTE | 2024-07-06 09:09 | Anesthesiology Consultation ---
Date of Service July 06, 2024 Assessment & Plan Chart Review Chart Review: Acceptable Risk for Surgery and Patient NOT seen in Pre Admission Testing Consults Requested none ASA ASA4 Proposed Anesthesia Anesthesia Type: MAC Risk / Benefits Reviewed With: PT / POA / Parent / Guardian, Accepts Plan and Informed Consent Obtained History Surgery Operation Date: 07/06/24 16:55 Proposed Procedures p Colonoscopy EGD Dr. Mia Bellamy MD Height/Weight Height: 5 ft 11 in Weight: 68.6 kg Allergies Allergy/AdvReac Type Severity Reaction Status Date / Time meloxicam Allergy Mild RASH Verified 07/04/24 09:40 hydrochlorothiazide AdvReac Severe PANCREATITI Verified 07/04/24 09:40 S morphine AdvReac Severe convulsions Verified 07/04/24 09:40 gabapentin AdvReac Intermediate Fainting Verified 10/25/23 18:54 Medications Home Medications Medication Instructions Recorded Confirmed Last Taken tamsulosin 0.4 mg capsule (Flomax) 0.8 mg PO HS 11/11/18 07/04/24 10/24/23 cholecalciferol (vitamin D3) 50 50 mcg PO QAM 04/24/21 07/04/24 10/25/23 mcg (2,000 unit) capsule (Vitamin D3) acetaminophen 325 mg tablet 650 mg PO Q6H PRN FEVER/PAIN 05/13/23 07/04/24 Unknown (Tylenol) acetaminophen 500 mg tablet 1,000 mg PO BID 05/13/23 07/04/24 10/25/23 08:30 hydrocortisone 1 % topical cream 1 applic topical QID 05/13/23 07/04/24 10/25/23 17:00 pantoprazole 40 mg tablet,delayed 40 mg PO QAM gastric erosions 05/13/23 07/04/24 10/25/23 release (Protonix) polyethylene glycol 3350 17 gram 17 g PO QAM PRN Constipation 05/13/23 07/04/24 Unknown oral powder packet (Miralax) diclofenac sodium 1 % topical gel 4 g topical Q6H PRN LEFT KNEE PAIN 10/25/23 07/04/24 Unknown aspirin 81 mg tablet,delayed 81 mg PO BID #60 tabs 11/10/23 07/04/24 Unknown release Prevagen 1 tab PO QAM 07/04/24 07/04/24 Unknown dextromethorphan-guaifenesin 30 1 tab PO Q12H 07/04/24 07/04/24 Unknown mg-600 mg tablet extended [id number] hr (Mucinex DM) latanoprost 0.005 % eye drops 1 drp OPB HS 07/04/24 07/04/24 Unknown naproxen sodium 220 mg tablet 220 mg PO BID 07/04/24 07/04/24 Unknown Active Medications Generic Name Dose Route Start Last Admin Trade Name Freq PRN Reason Stop Dose Admin Acetaminophen 650 mg 07/04/24 11:00 07/05/24 00:52 Acetaminophen 325 Mg Tab PO 08/03/24 10:59 650 mg Q4H PRN Administration pain/fever Sodium Chloride 1,000 mls @ 80 mls/hr 07/05/24 10:00 07/05/24 22:24 1/2 Nss IV 07/06/24 09:59 80 mls/hr .[id number] [facility] Administration Pantoprazole Sodium 40 mg in 10 mls @ 5 mls/min 07/05/24 21:00 07/06/24 07:53 Protonix IV 08/04/24 20:59 5 mls/min BID [facility] Administration Cefazolin Sodium 2,000 mg in 15 mls @ 3.75 mls/min 07/05/24 16:00 07/06/24 07:51 Ancef 2000mg IV 07/09/24 15:59 3.75 mls/min Q8H [facility] Administration Metronidazole 500 mg in 100 mls @ 100 mls/hr 07/05/24 16:00 07/06/24 08:47 Flagyl IV 07/09/24 15:59 Infused Q8H [facility] Infusion Protocol Tamsulosin HCl 0.4 mg 07/04/24 21:00 07/05/24 21:20 Tamsulosin Hcl 0.4 Mg Cap PO 08/03/24 20:59 0.4 mg HS L[facility]IS Administration NPO Date Last Intake of Fluids: 07/05/24 Time Last Intake of Fluids: 23:00 Date Last Intake of Solids: 07/04/24 Time Last Intake of Solids: 17:30 Past Medical History Medical History Abnormal urinalysis Aortic valve sclerosis Bladder stones History of colon polyps History of COVID-19 09/11/21 @ [facility] (asymptomatic, tested prior to procedure)--no issues Hearing deficit Acute pancreatitis Osteoarthritis Spinal stenosis B/L LE radiculopathy History of hypertension controlled since weight loss Mandibular fracture Exercise / Class Metabolic Activity III < 4 Walking/Shop/Light housework Past Family History Family History Mother Liver cancer Past Surgical History Surgical History History of ERCP (~11/30/20) History of esophagogastroduodenoscopy (EGD) last 09/29/21 @ [facility] History of colonoscopy Previous back surgery History of tonsillectomy and adenoidectomy Hx of toe surgery HAD TOENAIL REMOVED IN OFFICE 12/2018 Hx of tonsillectomy Hx of hernia repair RIGHT INGUINAL History of carpal tunnel surgery RIGHT HAND History of appendectomy Past Anesthesia History No Hx of Anesthesia Complications and No Family Hx of Anesthesia Complications History of PONV No Hx of PONV and No Hx of Motion Sickness Social History Smoking Status: Former smoker tobacco type: cigarettes Do You Dip or Chew Tobacco: No Hx Alcohol Use: Yes Alcohol type: hard liquor alcohol intake frequency: holidays/special occasions only Hx Substance Use: No substance use type: does not use Physical Exam Vital Signs Last Vital Signs Temp 36.8 C 07/06/24 08:56 Pulse 62 07/06/24 08:56 Resp 15 07/06/24 08:56 BP 131/61 07/06/24 08:56 Pulse Ox 100 07/06/24 08:56 O2 Del Method Nasal Cannula 07/06/24 08:56 O2 Flow Rate 4 07/06/24 08:56 FiO2 2 07/06/24 08:35 Constitutional + altered mental status and + lethargic; no acute distress and not cachectic ENMT Mouth: + dentition abnormality and + dental bridge Thyromental Distance: > or= 3.5 Finger Breadths Mallampati Class: II Neck normal visual inspection and trachea midline; neck extension not limited Respiratory + abnormal respiratory effort Auscultation: + diminished lung sounds Cardiovascular Rate/Rhythm: regular rate and regular rhythm Heart Sounds: no murmur Vessels: no carotid bruit Musculoskeletal Spine: normal cervical ROM and no pain with cervical ROM Extremities: full ROM of extremities Neurologic moves all extremities Motor/Sensory: no sensory deficit Psychiatric Orientation: + not alert and + not oriented x 3 Testing Laboratory Results 07/06/24 06:33 07/06/24 06:33 PT 11.9 Seconds (9.0-12.0) 07/06/24 00:51 INR 1.1 (0.9-1.1) 07/06/24 00:51 APTT 24 Seconds (21-31) 07/04/24 04:06 Blood Type O Positive 07/04/24 04:03 Antibody Screen NEGATIVE 07/04/24 04:03 Electrocardiogram Date: 07/04/24 Findings: + NSR @ (@ 71;PAC's) and + RBBB
[2024-07-06] MEDS ORDERED: ATROPINE SULFATE 0.1 MG/ML 10ML SYR IV PRN (09:18)
[2024-07-06] MEDS ORDERED: ePHEDrine sulfate 50 MG/ML AMP IV PRN (09:18)
--- NOTE | 2024-07-06 09:23 | Gastroenterology Progress Note ---
Date of Service July 06, 2024 Assessment & Plan (1) Rectal bleeding: Plan: 89 year old male w/ history of emphysema, pulmonary nodule, aortic valve sclerosis, BPH, bladder stones, degenerative disc disease, bilateral leg edema, postherpetic neuralgia, tobacco abuse, [facility] admitted through the ED for rectal bleeding requiring 4 units RBC. Negative CTA but persistent episodes of bloody BM NPO EGD/Colonoscopy today Trend H&H Monitor and document GI output Transfuse PRN per primary service IV PPI BID No NSAIDs We appreciate assistance in the management of any serological abnormality and corrections to include: hemoglobin >7, INR <2, platelets >50,000, potassium levels >3.5 but <5.3, and sodium levels within 5 points of the reference range prior to endoscopic evaluation. Thank you for allowing us to participate in the care of this patient. Please call with any acute changes, questions or concerns. Please see addendum below with additional recommendation from my supervising physician. Admission and Anticipated Discharge Date Admission Date: July 04, 2024 Subjective Pt was seen and evaluated, chart reviewed. S/P 4 units RBC. Persistent dark red bloody BMs. CTA was negative. Tolerated some prep but not able to complete. Continues to have intermittent confusion Review of Systems Review of Systems: All other findings negative except as noted in HPI. Physical Exam Constitutional: WD/WN, vitals as above Respiratory: normal respiratory effort Cardiovascular: Rate/Rhythm: regular rate Gastrointestinal (Abdomen): normal bowel sounds, soft, nontender, no hepatosplenomegaly Skin: no rashes, warm and dry Results & Data Results & Data Vital Signs (Past 12 Hours) Vital Signs Temp Pulse Pulse Resp BP BP Pulse Ox 07/06/24 08:56 36.8 C 62 15 131/61 100 07/06/24 08:35 07/06/24 08:27 37 C 07/06/24 08:15 127/56 L 07/06/24 08:15 59 L 21 100 07/06/24 08:00 146/50 H 07/06/24 08:00 64 22 100 07/06/24 07:30 127/50 L 07/06/24 07:22 129/53 L 07/06/24 07:12 65 18 100 07/06/24 07:06 63 18 100 07/06/24 06:52 65 07/06/24 05:15 137/56 L 07/06/24 05:15 137/56 L 07/06/24 05:15 137/56 L 07/06/24 05:15 36.6 C 137/56 L 07/06/24 05:15 137/56 L 07/06/24 05:14 70 19 100 07/06/24 05:01 131/57 L 07/06/24 05:01 131/57 L 07/06/24 04:47 70 21 99 07/06/24 04:46 122/57 L 07/06/24 04:35 74 24 97 07/06/24 04:32 155/64 H 07/06/24 04:15 115/57 L 07/06/24 04:15 115/57 L 07/06/24 04:14 66 17 99 07/06/24 03:56 74 23 99 07/06/24 03:45 131/48 L 07/06/24 03:45 131/48 L 07/06/24 03:38 36.6 C 63 18 162/63 H 98 07/06/24 03:30 114/53 L 07/06/24 03:21 73 23 100 07/06/24 03:18 36.6 C 71 18 120/51 L 98 07/06/24 03:15 120/51 L 07/06/24 03:12 71 21 95 07/06/24 03:03 72 20 97 07/06/24 03:01 127/40 L 07/06/24 02:54 69 21 98 07/06/24 02:30 115/50 L 07/06/24 02:30 67 15 96 07/06/24 02:18 67 17 95 07/06/24 02:15 120/54 L 07/06/24 02:15 120/54 L 07/06/24 02:15 120/54 L 07/06/24 02:01 133/56 L 07/06/24 01:51 70 13 99 07/06/24 01:45 72 20 100 07/06/24 01:45 131/61 07/06/24 01:45 131/61 07/06/24 01:30 76 22 97 07/06/24 01:30 117/61 07/06/24 01:30 117/61 07/06/24 01:30 117/61 07/06/24 01:22 136/73 07/06/24 01:22 136/73 07/06/24 01:21 90 23 95 07/06/24 01:09 69 21 99 07/06/24 01:00 117/63 07/06/24 00:54 75 22 100 07/06/24 00:50 120/55 L 07/06/24 00:50 120/55 L 07/06/24 00:48 74 23 98 07/06/24 00:30 132/56 L 07/06/24 00:18 84 29 H 07/06/24 00:16 121/63 07/06/24 00:16 121/63 07/06/24 00:16 121/63 07/05/24 23:57 70 15 99 07/05/24 23:45 73 25 H 97 07/05/24 23:45 115/49 L 07/05/24 23:30 104/50 L 07/05/24 23:21 79 25 H 99 07/05/24 23:09 133/69 07/05/24 23:06 130/50 L 07/05/24 23:06 80 22 98 07/05/24 23:00 96 H 23 100 07/05/24 22:46 116/83 07/05/24 22:46 116/83 07/05/24 22:46 116/83 07/05/24 22:46 116/83 07/05/24 22:46 116/83 07/05/24 22:45 84 24 92 07/05/24 22:31 112/84 07/05/24 22:31 112/84 07/05/24 22:21 82 22 97 07/05/24 22:16 88/70 L 07/05/24 22:09 89 24 100 07/05/24 22:03 75 19 100 O2 Del Method O2 Flow Rate FiO2 07/06/24 08:56 Nasal Cannula 4 07/06/24 08:35 Nasal Cannula 2 07/06/24 08:27 07/06/24 08:15 07/06/24 08:15 Nasal Cannula 2 07/06/24 08:00 07/06/24 08:00 07/06/24 07:30 07/06/24 07:22 07/06/24 07:12 07/06/24 07:06 07/06/24 06:52 07/06/24 05:15 07/06/24 05:15 07/06/24 05:15 07/06/24 05:15 07/06/24 05:15 07/06/24 05:14 07/06/24 05:01 07/06/24 05:01 07/06/24 04:47 07/06/24 04:46 07/06/24 04:35 07/06/24 04:32 07/06/24 04:15 07/06/24 04:15 07/06/24 04:14 07/06/24 03:56 07/06/24 03:45 07/06/24 03:45 07/06/24 03:38 2 07/06/24 03:30 07/06/24 03:21 07/06/24 03:18 2 07/06/24 03:15 07/06/24 03:12 07/06/24 03:03 07/06/24 03:01 07/06/24 02:54 07/06/24 02:30 07/06/24 02:30 07/06/24 02:18 07/06/24 02:15 07/06/24 02:15 07/06/24 02:15 07/06/24 02:01 07/06/24 01:51 07/06/24 01:45 07/06/24 01:45 07/06/24 01:45 07/06/24 01:30 07/06/24 01:30 07/06/24 01:30 07/06/24 01:30 07/06/24 01:22 07/06/24 01:22 07/06/24 01:21 07/06/24 01:09 07/06/24 01:00 07/06/24 00:54 07/06/24 00:50 07/06/24 00:50 07/06/24 00:48 07/06/24 00:30 07/06/24 00:18 07/06/24 00:16 07/06/24 00:16 07/06/24 00:16 07/05/24 23:57 07/05/24 23:45 07/05/24 23:45 07/05/24 23:30 07/05/24 23:21 07/05/24 23:09 07/05/24 23:06 07/05/24 23:06 07/05/24 23:00 07/05/24 22:46 07/05/24 22:46 07/05/24 22:46 07/05/24 22:46 07/05/24 22:46 07/05/24 22:45 07/05/24 22:31 07/05/24 22:31 07/05/24 22:21 07/05/24 22:16 07/05/24 22:09 07/05/24 22:03 Laboratory Results 07/06/24 07/06/24 07/05/24 Range/Units 06:33 00:51 17:55 WBC 15.78 H (4.8-10.8) K/ul RBC 3.28 L (4.70-6.10) M/uL Hgb 9.4 L 8.5 L 9.7 L (14.0-18.0) g/dl Hct 28.1 L 24.9 L 29.5 L (42.0-52.0) % MCV 85.7 (80.0-100.0) fL MCH 28.7 (25.0-34.0) pg MCHC 33.5 (32.0-36.0) g/dL RDW Std Deviation 44.9 (36.4-46.3) fL RDW Coeff of Jocelyn 14.4 (11.5-14.5) % Plt Count 176 (130-400) K/uL MPV 10.3 (9.4-12.4) fL Absolute Nucleated RBC 0.02 (0.00-0.12) K/uL Nucleated RBC % (auto) 0.1 % PT 11.9 (9.0-12.0) Seconds INR 1.1 (0.9-1.1) Fibrinogen 277 (184-400) mg/dl Sodium 144 (136-145) mmol/L Potassium 3.5 (3.5-5.1) mmol/L Chloride 113 H (98-107) mmol/L Carbon Dioxide 26 (21-32) mmol/L Anion Gap 5 (3-11) BUN 21 (6-23) mg/dl Creatinine 0.57 L (0.6-1.4) mg/dl Est Cr Clr Drug Dosing 86.9 ml/min eGFR 94.30 BUN/Creatinine Ratio 36.8 H (10-20) Glucose 96 (70-99(Fasting)) mg/dl POC Glucose (70-99) mg/dl Calcium 8.1 L (8.6-10.3) mg/dl Blood Type Antibody Screen Crossmatch 07/05/24 07/05/24 07/05/24 Range/Units 17:09 14:12 11:54 WBC (4.8-10.8) K/ul RBC (4.70-6.10) M/uL Hgb 7.6 L (14.0-18.0) g/dl Hct 23.7 L (42.0-52.0) % MCV (80.0-100.0) fL MCH (25.0-34.0) pg MCHC (32.0-36.0) g/dL RDW Std Deviation (36.4-46.3) fL RDW Coeff of Jocelyn (11.5-14.5) % Plt Count (130-400) K/uL MPV (9.4-12.4) fL Absolute Nucleated RBC (0.00-0.12) K/uL Nucleated RBC % (auto) % PT (9.0-12.0) Seconds INR (0.9-1.1) Fibrinogen (184-400) mg/dl Sodium (136-145) mmol/L Potassium (3.5-5.1) mmol/L Chloride (98-107) mmol/L Carbon Dioxide (21-32) mmol/L Anion Gap (3-11) BUN (6-23) mg/dl Creatinine (0.6-1.4) mg/dl Est Cr Clr Drug Dosing ml/min eGFR BUN/Creatinine Ratio (10-20) Glucose (70-99(Fasting)) mg/dl POC Glucose 95 97 (70-99) mg/dl Calcium (8.6-10.3) mg/dl Blood Type Antibody Screen Crossmatch 07/04/24 Range/Units 04:03 WBC (4.8-10.8) K/ul RBC (4.70-6.10) M/uL Hgb (14.0-18.0) g/dl Hct (42.0-52.0) % MCV (80.0-100.0) fL MCH (25.0-34.0) pg MCHC (32.0-36.0) g/dL RDW Std Deviation (36.4-46.3) fL RDW Coeff of Jocelyn (11.5-14.5) % Plt Count (130-400) K/uL MPV (9.4-12.4) fL Absolute Nucleated RBC (0.00-0.12) K/uL Nucleated RBC % (auto) % PT (9.0-12.0) Seconds INR (0.9-1.1) Fibrinogen (184-400) mg/dl Sodium (136-145) mmol/L Potassium (3.5-5.1) mmol/L Chloride (98-107) mmol/L Carbon Dioxide (21-32) mmol/L Anion Gap (3-11) BUN (6-23) mg/dl Creatinine (0.6-1.4) mg/dl Est Cr Clr Drug Dosing ml/min eGFR BUN/Creatinine Ratio (10-20) Glucose (70-99(Fasting)) mg/dl POC Glucose (70-99) mg/dl Calcium (8.6-10.3) mg/dl Blood Type O Positive Antibody Screen NEGATIVE Crossmatch See Detail PG Care Time/CCT Total # of Minutes Spent Total Time Spent with Patient: Total time spent is greater than 50% in coordination of care (as documented) at patient's floor/unit and/or counseling patient: Coding Level of Care Code None Diagnoses Rectal bleeding K62.5
--- NOTE | 2024-07-06 09:46 | GI REPORT ---
[facility] Patient: MARILUZ ANAYA : 1935 Sex at : Male Age: 89 Years Procedure: Colonoscopy Date: 07/06/2024 Attending Physician: Kenroy Bellamy MD Referring MD: Erika Parr Md Indications: - Rectal bleeding Medications: - Monitored Anesthesia Care Complications: - No immediate complications. Estimated Blood Loss: - Estimated blood loss: None. Procedure: - The pediatric colonoscope was introduced through the anus . The scope was advanced to the descending colon before the procedure was aborted. Medications were given. - There was old clotted blood as well as stool which prevented the procedure from being performed easily and could not advance beyond descending colon as could not visualize Findings: - There were multiple diverticuli in the sigmoid and descending colon there was old blood as well as stool in the sigmoid and descending which was cleaned as much as possible could not advance beyond descending colon as could not visualize the lumen despite efforts to clean no active bleeding seen up to the extent examined Impression: - There were multiple diverticuli in the sigmoid and descending colon there was old blood as well as stool in the sigmoid and descending which was cleaned as much as possible could not advance beyond descending colon as could not visualize the lumen despite efforts to clean no active bleeding seen up to the extent examined - No specimens collected. Recommendation: - Will monitor H&H every 6 hours the patient refused to take the prep yesterday and pulled out his NG tube if he continues to trend down he would need IR evaluation or he would need to be put in restraints and have an NG tube put in and then prep done by means of an NG tube I discussed the case with the ICU attending also Procedure Code(s): - 36734-11, Colonoscopy, flexible; diagnostic, including collection of specimen(s) by brushing or washing, when performed (separate procedure) CPT(R) - 202 copyright [employer] [place] [employer]. All Rights Reserved. The CPT codes, CCI edits and ICD codes generated are intended as suggestions and were generated based on input data. These codes are preliminary and upon financial accounting analyst review may be revised to meet current compliance and payer requirements. The provider is responsible for the final determination of appropriate codes, and modifiers. Kenroy Bellamy MD This document has been electronically signed. Note Initiated:07/06/2024 Note Completed:07/06/2024 9:46 AM \\[email or web address]\[email or web address]\Results\[email or web address]\[id number]
--- NOTE | 2024-07-06 09:49 | GI REPORT ---
[facility] Patient: MARILUZ ANAYA : 1935 Sex at : Male Age: 89 Years Procedure: Upper GI endoscopy Date: 07/06/2024 Attending Physician: Kenroy Bellamy MD Referring MD: Erika Parr Md Indications: - GI bleeding Medications: - Monitored Anesthesia Care Complications: - No immediate complications. Estimated Blood Loss: - Estimated blood loss: None. Procedure: - The EGD Scope was introduced through the mouth and advanced to the second part of the duodenum. - The upper GI endoscopy was accomplished with ease. - The patient tolerated the procedure well. Findings: - There was a hiatal hernia there was diffuse gastritis biopsy not done in view of GI bleeding duodenitis in the bulb no evidence of GI bleeding up to the region examined Impression: - There was a hiatal hernia there was diffuse gastritis biopsy not done in view of GI bleeding duodenitis in the bulb no evidence of GI bleeding up to the region examined - No specimens collected. Recommendation: - Most likely source of bleeding is diverticular follow recommendations as per the colonoscopy report would keep on PPI daily Procedure Code(s): - 24597, Esophagogastroduodenoscopy, flexible, transoral; diagnostic, including collection of specimen(s) by brushing or washing, when performed (separate procedure) CPT(R) - 2023 copyright [employer]. All Rights Reserved. The CPT codes, CCI edits and ICD codes generated are intended as suggestions and were generated based on input data. These codes are preliminary and upon charter bus driver review may be revised to meet current compliance and payer requirements. The provider is responsible for the final determination of appropriate codes, and modifiers. Kenroy Bellamy MD This document has been electronically signed. Note Initiated:07/06/2024 Note Completed:07/06/2024 9:49 AM \\[email or web address]\[email or web address]\Provation\Results\[email or web address]\[id number]
--- NOTE | 2024-07-06 09:54 | Anesthesiology Progress Note ---
Date of Service July 06, 2024 Anesthesia Post Procedure Vital Signs Vital Signs: Temp Pulse Pulse Resp BP BP Pulse Ox 07/06/24 08:56 36.8 C 62 15 131/61 100 07/06/24 08:35 07/06/24 08:27 37 C 07/06/24 08:15 127/56 L 07/06/24 08:15 59 L 21 100 07/06/24 08:00 146/50 H 07/06/24 08:00 64 22 100 07/06/24 07:30 127/50 L 07/06/24 07:22 129/53 L 07/06/24 07:12 65 18 100 07/06/24 07:06 63 18 100 07/06/24 06:52 65 07/06/24 05:15 137/56 L 07/06/24 05:15 137/56 L 07/06/24 05:15 137/56 L 07/06/24 05:15 36.6 C 137/56 L 07/06/24 05:15 137/56 L 07/06/24 05:14 70 19 100 07/06/24 05:01 131/57 L 07/06/24 05:01 131/57 L 07/06/24 04:47 70 21 99 07/06/24 04:46 122/57 L 07/06/24 04:35 74 24 97 07/06/24 04:32 155/64 H 07/06/24 04:15 115/57 L 07/06/24 04:15 115/57 L 07/06/24 04:14 66 17 99 07/06/24 03:56 74 23 99 07/06/24 03:45 131/48 L 07/06/24 03:45 131/48 L 07/06/24 03:38 36.6 C 63 18 162/63 H 98 07/06/24 03:30 114/53 L 07/06/24 03:21 73 23 100 07/06/24 03:18 36.6 C 71 18 120/51 L 98 07/06/24 03:15 120/51 L 07/06/24 03:12 71 21 95 07/06/24 03:03 72 20 97 07/06/24 03:01 127/40 L 07/06/24 02:54 69 21 98 07/06/24 02:30 115/50 L 07/06/24 02:30 67 15 96 07/06/24 02:18 67 17 95 07/06/24 02:15 120/54 L 07/06/24 02:15 120/54 L 07/06/24 02:15 120/54 L 07/06/24 02:01 133/56 L 07/06/24 01:51 70 13 99 07/06/24 01:45 72 20 100 07/06/24 01:45 131/61 07/06/24 01:45 131/61 07/06/24 01:30 76 22 97 07/06/24 01:30 117/61 07/06/24 01:30 117/61 07/06/24 01:30 117/61 07/06/24 01:22 136/73 07/06/24 01:22 136/73 07/06/24 01:21 90 23 95 07/06/24 01:09 69 21 99 07/06/24 01:00 117/63 07/06/24 00:54 75 22 100 07/06/24 00:50 120/55 L 07/06/24 00:50 120/55 L 07/06/24 00:48 74 23 98 07/06/24 00:30 132/56 L 07/06/24 00:18 84 29 H 07/06/24 00:16 121/63 07/06/24 00:16 121/63 07/06/24 00:16 121/63 07/05/24 23:57 70 15 99 07/05/24 23:45 73 25 H 97 07/05/24 23:45 115/49 L 07/05/24 23:30 104/50 L 07/05/24 23:21 79 25 H 99 07/05/24 23:09 133/69 07/05/24 23:06 130/50 L 07/05/24 23:06 80 22 98 07/05/24 23:00 96 H 23 100 07/05/24 22:46 116/83 07/05/24 22:46 116/83 07/05/24 22:46 116/83 07/05/24 22:46 116/83 07/05/24 22:46 116/83 07/05/24 22:45 84 24 92 07/05/24 22:31 112/84 07/05/24 22:31 112/84 07/05/24 22:21 82 22 97 07/05/24 22:16 88/70 L 07/05/24 22:09 89 24 100 07/05/24 22:03 75 19 100 07/05/24 18:39 36.6 C 77 18 127/66 94 07/05/24 18:24 37.2 C 87 20 127/66 94 07/05/24 18:22 36.6 C 74 128/60 95 07/05/24 18:21 36.6 C 75 20 142/65 H 93 07/05/24 18:08 36.7 C 82 20 142/65 H 92 07/05/24 18:03 36.7 C 81 24 142/65 H 94 07/05/24 17:00 138/73 07/05/24 17:00 77 23 90 07/05/24 16:54 81 24 94 07/05/24 16:53 36.6 C 81 20 151/59 H 92 07/05/24 16:42 17 93 07/05/24 16:36 102 H 29 H 91 07/05/24 16:08 94 H 07/05/24 16:08 37 C 90 20 143/65 H 93 07/05/24 15:38 37 C 79 20 141/64 H 91 07/05/24 15:23 36.7 C 77 24 129/66 93 07/05/24 15:06 37.3 C 79 18 131/97 95 07/05/24 14:12 77 20 91 07/05/24 14:00 127/66 07/05/24 13:54 81 17 95 07/05/24 13:22 36.6 C 07/05/24 13:00 07/05/24 13:00 77 24 92 07/05/24 13:00 140/53 L 07/05/24 12:54 77 23 96 07/05/24 12:46 139/75 07/05/24 11:25 36.8 C 79 18 128/69 93 07/05/24 10:19 36.3 C L 85 18 138/65 93 O2 Del Method O2 Flow Rate FiO2 07/06/24 08:56 Nasal Cannula 4 07/06/24 08:35 Nasal Cannula 2 07/06/24 08:27 07/06/24 08:15 07/06/24 08:15 Nasal Cannula 2 07/06/24 08:00 07/06/24 08:00 07/06/24 07:30 07/06/24 07:22 07/06/24 07:12 07/06/24 07:06 07/06/24 06:52 07/06/24 05:15 07/06/24 05:15 07/06/24 05:15 07/06/24 05:15 07/06/24 05:15 07/06/24 05:14 07/06/24 05:01 07/06/24 05:01 07/06/24 04:47 07/06/24 04:46 07/06/24 04:35 07/06/24 04:32 07/06/24 04:15 07/06/24 04:15 07/06/24 04:14 07/06/24 03:56 07/06/24 03:45 07/06/24 03:45 07/06/24 03:38 2 07/06/24 03:30 07/06/24 03:21 07/06/24 03:18 2 07/06/24 03:15 07/06/24 03:12 07/06/24 03:03 07/06/24 03:01 07/06/24 02:54 07/06/24 02:30 07/06/24 02:30 07/06/24 02:18 07/06/24 02:15 07/06/24 02:15 07/06/24 02:15 07/06/24 02:01 07/06/24 01:51 07/06/24 01:45 07/06/24 01:45 07/06/24 01:45 07/06/24 01:30 07/06/24 01:30 07/06/24 01:30 07/06/24 01:30 07/06/24 01:22 07/06/24 01:22 07/06/24 01:21 07/06/24 01:09 07/06/24 01:00 07/06/24 00:54 07/06/24 00:50 07/06/24 00:50 07/06/24 00:48 07/06/24 00:30 07/06/24 00:18 07/06/24 00:16 07/06/24 00:16 07/06/24 00:16 07/05/24 23:57 07/05/24 23:45 07/05/24 23:45 07/05/24 23:30 07/05/24 23:21 07/05/24 23:09 07/05/24 23:06 07/05/24 23:06 07/05/24 23:00 07/05/24 22:46 07/05/24 22:46 07/05/24 22:46 07/05/24 22:46 07/05/24 22:46 07/05/24 22:45 07/05/24 22:31 07/05/24 22:31 07/05/24 22:21 07/05/24 22:16 07/05/24 22:09 07/05/24 22:03 07/05/24 18:39 2 07/05/24 18:24 2 07/05/24 18:22 2 07/05/24 18:21 2 07/05/24 18:08 2 07/05/24 18:03 2 07/05/24 17:00 07/05/24 17:00 Room Air 07/05/24 16:54 07/05/24 16:53 07/05/24 16:42 07/05/24 16:36 07/05/24 16:08 07/05/24 16:08 07/05/24 15:38 07/05/24 15:23 07/05/24 15:06 07/05/24 14:12 Room Air 07/05/24 14:00 07/05/24 13:54 07/05/24 13:22 07/05/24 13:00 Room Air 07/05/24 13:00 07/05/24 13:00 07/05/24 12:54 Room Air 07/05/24 12:46 07/05/24 11:25 07/05/24 10:19 Pain Intensity Left Lower Abdomen: Pain Intensity: 3 Transfer of Care Handoff Completed per policy Notes Mental Status: alert / awake / arousable Patient Amnestic to Procedure: Yes Nausea / Vomiting: adequately controlled Pain: adequately controlled Airway Patency, RR, SpO2: stable & adequate BP & HR: stable & adequate Hydration State: stable & adequate Anesthetic Complications: no major complications apparent
[2024-07-06] MEDS: LIDOCAINE 2% 2 ML VIAL/AMP(20MG/ML) INFIL ONE (10:14)
[2024-07-06] MEDS: PROPOFOL IV EMULSION 10 MG/ML 20 ML VIAL IV ONE (10:14)
[2024-07-06 13:27] LABS: Hematocrit (blood only) 26.3 % (42.0-52.0); Hemoglobin 8.8 g/dl (14.0-18.0)
--- NOTE | 2024-07-06 17:20 | Hospitalist Progress Note ---
Date of Service July 06, 2024 Assessment & Plan (1) Acute blood loss anemia: (2) Diverticulitis of colon with hemorrhage: (3) Diverticulosis: (4) Dehydration: Plan Mr. Melo is an 89 year old male w/ history of emphysema, pulmonary nodule, aortic valve sclerosis, BPH, bladder stones, degenerative disc disease, bilateral leg edema, postherpetic neuralgia, tobacco abuse, currently living at [facility] admitted through the ED for rectal bleeding. Patient required ICU admission and now s/p 4 U PRBC. s/p colonoscopy/egd revealed hiatal hernia with diffuse gastritis/duodenitis; no active bleed noted; cscope with multiple diverticula with old blood in colon #Acute on chronic anemia iso diverticular bleed #Diffuse gastritis and duodenitis #Diverticulitis -4 U PRBCS, required ICU admission, anticipate downgrade in next 24 hours last transfusion 07/05 with goal hgb 8-9 continue to trend H&H continue PPI BID on cefazolin and flagyl IV for diverticulitis #leukocytosis likely iso diverticular bleeding and diverticulitis abx started 07/05 trend CBC qam #BPH continue flomax DVTppx SCD dispo contingent on hgb stability, pt/ot Admission and Anticipated Discharge Date Admission Date: July 04, 2024 Subjective s/p colonoscopy/egd denies any concerns s/p procedure, report of large maroon bm from nursing Physical Exam Constitutional: rest supine in bed, no distress noted Respiratory: normal respiratory effort, lungs clear to auscultation Cardiovascular: RRR, no murmur, no edema Gastrointestinal (Abdomen): normal bowel sounds, soft, nontender, no hepatosplenomegaly Results & Data Results & Data Vital Signs (Past 12 Hours) Vital Signs Temp Pulse Pulse Resp BP BP Pulse Ox 07/06/24 15:15 56 L 07/06/24 15:03 59 L 14 93 07/06/24 15:00 130/56 L 07/06/24 14:54 61 14 93 07/06/24 14:45 126/58 L 07/06/24 14:39 70 17 07/06/24 14:00 137/61 07/06/24 14:00 59 L 12 100 07/06/24 13:45 56 L 17 92 07/06/24 13:45 109/51 L 07/06/24 13:42 62 14 100 07/06/24 13:31 133/61 07/06/24 13:27 65 19 07/06/24 13:16 105/53 L 07/06/24 13:12 59 L 12 97 07/06/24 13:09 58 L 12 97 07/06/24 13:00 123/54 L 07/06/24 12:57 57 L 100 07/06/24 12:51 59 L 14 99 07/06/24 12:45 110/47 L 07/06/24 12:30 120/66 07/06/24 12:27 61 18 96 07/06/24 12:18 68 16 97 07/06/24 12:15 129/60 07/06/24 12:00 127/51 L 07/06/24 12:00 58 L 17 85 L 07/06/24 12:00 36.6 C 07/06/24 11:48 59 L 98 07/06/24 11:45 117/49 L 07/06/24 11:30 132/57 L 07/06/24 11:27 60 13 96 07/06/24 11:15 133/53 L 07/06/24 11:15 58 L 16 99 07/06/24 11:00 58 L 17 96 07/06/24 10:45 130/58 L 07/06/24 10:45 61 18 93 07/06/24 10:30 57 L 18 90 07/06/24 10:27 60 13 07/06/24 10:16 119/49 L 07/06/24 10:09 64 17 07/06/24 10:00 127/56 L 07/06/24 09:40 36.8 C 67 16 105/50 L 99 07/06/24 08:56 36.8 C 62 15 131/61 100 07/06/24 08:39 62 14 98 07/06/24 08:35 07/06/24 08:30 119/50 L 07/06/24 08:30 61 20 100 07/06/24 08:27 37 C 07/06/24 08:15 127/56 L 07/06/24 08:15 127/56 L 07/06/24 08:15 59 L 21 100 07/06/24 08:00 146/50 H 07/06/24 08:00 64 22 100 07/06/24 07:30 127/50 L 07/06/24 07:22 129/53 L 07/06/24 07:12 65 18 100 07/06/24 07:06 63 18 100 07/06/24 06:52 65 07/06/24 05:15 137/56 L 07/06/24 05:15 137/56 L 07/06/24 05:15 137/56 L 07/06/24 05:15 36.6 C 137/56 L 07/06/24 05:15 137/56 L 07/06/24 05:14 70 19 100 O2 Del Method O2 Flow Rate FiO2 07/06/24 15:15 07/06/24 15:03 Room Air 07/06/24 15:00 07/06/24 14:54 07/06/24 14:45 07/06/24 14:39 07/06/24 14:00 07/06/24 14:00 07/06/24 13:45 Room Air 07/06/24 13:45 07/06/24 13:42 07/06/24 13:31 07/06/24 13:27 07/06/24 13:16 07/06/24 13:12 07/06/24 13:09 07/06/24 13:00 07/06/24 12:57 07/06/24 12:51 07/06/24 12:45 07/06/24 12:30 07/06/24 12:27 07/06/24 12:18 07/06/24 12:15 07/06/24 12:00 07/06/24 12:00 07/06/24 12:00 07/06/24 11:48 07/06/24 11:45 07/06/24 11:30 07/06/24 11:27 07/06/24 11:15 07/06/24 11:15 07/06/24 11:00 07/06/24 10:45 07/06/24 10:45 07/06/24 10:30 07/06/24 10:27 07/06/24 10:16 07/06/24 10:09 07/06/24 10:00 07/06/24 09:40 Room Air 07/06/24 08:56 Nasal Cannula 4 07/06/24 08:39 07/06/24 08:35 Nasal Cannula 2 07/06/24 08:30 07/06/24 08:30 07/06/24 08:27 07/06/24 08:15 07/06/24 08:15 07/06/24 08:15 Nasal Cannula 2 07/06/24 08:00 07/06/24 08:00 07/06/24 07:30 07/06/24 07:22 07/06/24 07:12 07/06/24 07:06 07/06/24 06:52 07/06/24 05:15 07/06/24 05:15 07/06/24 05:15 07/06/24 05:15 07/06/24 05:15 07/06/24 05:14 Laboratory Results Short CBC 07/05/24 07/06/24 07/06/24 Range/Units 17:55 00:51 06:33 WBC 15.78 H (4.8-10.8) K/ul Hgb 9.7 L 8.5 L 9.4 L (14.0-18.0) g/dl Hct 29.5 L 24.9 L 28.1 L (42.0-52.0) % Plt Count 176 (130-400) K/uL 07/06/24 Range/Units 12:59 WBC (4.8-10.8) K/ul Hgb 8.8 L (14.0-18.0) g/dl Hct 26.3 L (42.0-52.0) % Plt Count (130-400) K/uL BMP 07/06/24 06:33 Sodium 144 Potassium 3.5 Chloride 113 H Carbon Dioxide 26 BUN 21 Creatinine 0.57 L Glucose 96 Calcium 8.1 L Medications Administered Home Medications Medication Instructions Recorded Confirmed Last Taken tamsulosin 0.4 mg capsule (Flomax) 0.8 mg PO HS 11/11/18 07/04/24 10/24/23 cholecalciferol (vitamin D3) 50 50 mcg PO QAM 04/24/21 07/04/24 10/25/23 mcg (2,000 unit) capsule (Vitamin D3) acetaminophen 325 mg tablet 650 mg PO Q6H PRN FEVER/PAIN 05/13/23 07/04/24 Unknown (Tylenol) acetaminophen 500 mg tablet 1,000 mg PO BID 05/13/23 07/04/24 10/25/23 08:30 hydrocortisone 1 % topical cream 1 applic topical QID 05/13/23 07/04/24 10/25/23 17:00 pantoprazole 40 mg tablet,delayed 40 mg PO QAM gastric erosions 05/13/23 07/04/24 10/25/23 release (Protonix) polyethylene glycol 3350 17 gram 17 g PO QAM PRN Constipation 05/13/23 07/04/24 Unknown oral powder packet (Miralax) diclofenac sodium 1 % topical gel 4 g topical Q6H PRN LEFT KNEE PAIN 10/25/23 07/04/24 Unknown aspirin 81 mg tablet,delayed 81 mg PO BID #60 tabs 11/10/23 07/04/24 Unknown release Prevagen 1 tab PO QAM 07/04/24 07/04/24 Unknown dextromethorphan-guaifenesin 30 1 tab PO Q12H 07/04/24 07/04/24 Unknown mg-600 mg tablet extended [id number] hr (Mucinex DM) latanoprost 0.005 % eye drops 1 drp OPB HS 07/04/24 07/04/24 Unknown naproxen sodium 220 mg tablet 220 mg PO BID 07/04/24 07/04/24 Unknown Active Medications Generic Name Dose Route Start Last Admin Trade Name Ponceq PRN Reason Stop Dose Admin Acetaminophen 650 mg 07/04/24 11:00 07/05/24 00:52 Acetaminophen 325 Mg Tab PO 08/03/24 10:59 650 mg Q4H PRN Administration pain/fever Pantoprazole Sodium 40 mg in 10 mls @ 5 mls/min 07/05/24 21:00 07/06/24 07:53 Protonix IV 08/04/24 20:59 5 mls/min BID [place] Administration Cefazolin Sodium 2,000 mg in 15 mls @ 3.75 mls/min 07/05/24 16:00 07/06/24 16:07 Ancef 2000mg IV 07/09/24 15:59 3.75 mls/min Q8H [place] Administration Metronidazole 500 mg in 100 mls @ 100 mls/hr 07/05/24 16:00 07/06/24 16:07 Flagyl IV 07/09/24 15:59 100 mls/hr Q8H [place] Administration Protocol Tamsulosin HCl 0.4 mg 07/04/24 21:00 07/05/24 21:20 Tamsulosin Hcl 0.4 Mg Cap PO 08/03/24 20:59 0.4 mg HS [place] Administration
[2024-07-06 21:22] LABS: Hematocrit (blood only) 22.8 % (42.0-52.0); Hemoglobin 7.7 g/dl (14.0-18.0)
[2024-07-07 04:14] LABS: Hematocrit (blood only) 22.4 % (42.0-52.0); Hemoglobin 7.5 g/dl (14.0-18.0); Mean Corpuscular Hgb Conc 33.5 g/dL (32.0-36.0); Mean Corpuscular Volume 86.5 fL (80.0-100.0); Nucleated RBC # (auto) 0.02 K/uL (0.00-0.12); Nucleated RBC % (auto) 0.2 %; Platelet Count 155 K/uL (130-400); RDW Standard Deviation 46.5 fL (36.4-46.3); Red Blood Count 2.59 M/uL (4.70-6.10); White Blood Count 9.62 K/ul (4.8-10.8)
[2024-07-07 04:23] LABS: BUN Creatinine Ratio 31.7 (10-20); Calcium 7.9 mg/dl (8.6-10.3); Creatinine Clr Calc Pharmacy 78.6 ml/min; Magnesium 1.9 mg/dl (1.7-2.4); Phosphorus 2.5 mg/dl (2.5-4.9); Potassium 3.3 mmol/L (3.5-5.1)
[2024-07-07] MEDS ORDERED: SODIUM CHLORIDE 0.9% 50 ML IV PRN (07:10)
[2024-07-07] MEDS ORDERED: SODIUM CHLORIDE 0.9% 100 ML IV PRN (07:10)
[2024-07-07] MEDS: POTASSIUM CHLORIDE 20 MEQ/15 ML UDC PO STA (07:35)
[2024-07-07] MEDS: MAGNESIUM SULFATE / D5W 1 GM/100 ML BAG IV ONE (07:44)
[2024-07-07] MEDS: POTASSIUM CHLORIDE / WTR 10 MEQ/100 ML PLCT IV SCH (07:50)
--- NOTE | 2024-07-07 08:01 | Critical Care Progress Note ---
Date of Service July 07, 2024 Assessment & Plan (1) SunDown syndrome: (2) Rectal bleeding: (3) Lung nodule: (4) BPH (benign prostatic hyperplasia): (5) Centrilobular emphysema: (6) Acute blood loss anemia: Plan Reason Critically Ill: 89-year-old male who is DNR does not want heroic measures undertaken in event of cardiac arrest with ongoing gastrointestinal hemorrhage requiring blood transfusions PLAN: Neuro: Sundowning syndrome -At risk for delirium: Control modifiable risk factors Resp: -- Pulmonary emphysema Not on any inhalers at home Saturating well on room air --Calcified granuloma right lower lobe CV: Aortic valve sclerosis noted in prior records History of hypertension not on any medications right now Renal: BPH On Flomax ID: Flagyl and cefazolin: Low risk community-acquired diverticulitis GI/Nutrition: Known diverticulosis with probable diverticular bleeding EGD did not show any acute bleeding, gastritis appreciated CT abdomen pelvis 07/05/2024: No active GI bleed, colonic diverticulosis without diverticulitis Possible colonoscopy today Heme: Acute blood loss anemia -Goal hemoglobin between 8 and 9 patient to receive second unit packed red blood cells -Total of 4 units of PRBC given to the patient Endocrine: ICU hyperglycemia protocol --Prophylaxis VTE: IPC GI: Pantoprazole twice daily Lines: Peripheral Diet: N.p.o. Plan: In/out: +700 mL, urine output 600 mL Patient's hemoglobin is still gradually trending down, 7.5 today. Getting 1 more unit of PRBC. Continue to trend H&H Hopefully the plan would be for a colonoscopy today. If the patient's hemoglobin is still trending down then I would recommend transfer to a tertiary center with IR capabilities for possible embolization. Magnesium and potassium being replaced Please note the above document was generated using voice recognition software. It may contain grammatical, syntax or spelling errors.Any formal questions or concerns about the content, text or information contained within the body of this dictation should be directly addressed to the provider for clarification. Admission and Anticipated Discharge Date Admission Date: July 04, 2024 Subjective Patient seen and examined at bedside. No acute distress, no evidence of overnight He was saturating 94-95% on room air, systolic blood pressure was in the 180s Denies any chest pain, no abdominal pain. No melanotic bowel movement since yesterday Denied any headache, no nausea vomiting Review of Systems 2 Review of Systems: All systems reviewed & are unremarkable except as noted in Subjective Physical Exam 2 Physical Exam: Constitutional: No acute distress HEENT: EOMI, PERRLA Respiratory system: Decreased air entry bilaterally, no wheeze, no rhonchi, mild crackles bilateral lower lobes CVS: S1-S2 positive, no murmurs or gallops Abdomen: Soft, nontender, nondistended, positive bowel sounds x4 Extremities: +2 pulses bilaterally radialis/ dorsalis pedis, no cyanosis, no edema Neuro: Awake alert oriented to self and place Psych: Normal mood and affect G/U: [place] Skin: no rashes, warm and dry Lymphatic: no cervical or axillary lymphadenopathy Results & Data Results & Data Vital Signs (Past 12 Hours) Vital Signs Temp Pulse Pulse Resp BP BP Pulse Ox 07/07/24 07:00 37.0 C 64 20 103/55 L 95 07/07/24 05:00 65 19 81 L 07/07/24 04:48 62 10 L 88 L 07/07/24 04:12 61 9 L 87 L 07/07/24 04:00 94/42 L 07/07/24 04:00 94/42 L 07/07/24 04:00 94/42 L 07/07/24 03:54 65 7 L 95 07/07/24 03:48 64 18 97 07/07/24 03:00 93/55 L 07/07/24 03:00 93/55 L 07/07/24 03:00 93/55 L 07/07/24 03:00 70 20 97 07/07/24 02:30 65 9 L 95 07/07/24 02:20 36.6 C 07/07/24 02:03 63 9 L 97 07/07/24 02:00 100/47 L 07/07/24 02:00 100/47 L 07/07/24 02:00 100/47 L 07/07/24 02:00 100/47 L 07/07/24 02:00 100/47 L 07/07/24 01:21 65 19 84 L 07/07/24 01:00 65 20 90 07/07/24 00:39 68 20 95 07/07/24 00:06 66 10 L 94 07/07/24 00:00 98/51 L 07/06/24 23:24 70 23 94 12/27/24 23:00 69 17 93 07/06/24 23:00 97/47 L 07/06/24 22:30 64 11 L 91 07/06/24 22:06 63 4 L 93 07/06/24 21:30 66 7 L 96 07/06/24 21:00 66 23 95 07/06/24 20:45 63 20 84 L 07/06/24 20:01 36.6 C 07/06/24 20:00 114/62 07/06/24 20:00 66 24 94 O2 Del Method 07/07/24 07:00 Room Air 07/07/24 05:00 07/07/24 04:48 07/07/24 04:12 07/07/24 04:00 07/07/24 04:00 07/07/24 04:00 07/07/24 03:54 07/07/24 03:48 07/07/24 03:00 07/07/24 03:00 07/07/24 03:00 07/07/24 03:00 07/07/24 02:30 07/07/24 02:20 07/07/24 02:03 07/07/24 02:00 07/07/24 02:00 07/07/24 02:00 07/07/24 02:00 07/07/24 02:00 07/07/24 01:21 07/07/24 01:00 07/07/24 00:39 07/07/24 00:06 07/07/24 00:00 07/06/24 23:24 07/06/24 23:00 07/06/24 23:00 07/06/24 22:30 07/06/24 22:06 07/06/24 21:30 07/06/24 21:00 07/06/24 20:45 07/06/24 20:01 07/06/24 20:00 07/06/24 20:00 Laboratory Results 07/07/24 03:47 07/07/24 03:47 Coding Level of Care Code 35521 SUB INP/OBS CARE 3/50MIN Diagnoses SunDown syndrome F05 Rectal bleeding K62.5 Lung nodule R91.1 BPH (benign prostatic hyperplasia) N40.0 Centrilobular emphysema J43.2 Acute blood loss anemia D62
--- NOTE | 2024-07-07 10:24 | Gastroenterology Progress Note ---
Date of Service July 07, 2024 Assessment & Plan (1) Rectal bleeding: Plan: As per Dr. Bennett's note if bleeding is continuing would look into transfer to facility with IR. Discussed with Dr. Reid Admission and Anticipated Discharge Date Admission Date: July 04, [address] Reid asking if colonoscopy was going to be done today. It was attempted yesterday and not completed due to prep. Recommendations were if bleeding continued to transfer to center with IR. Patient tells me he doesn't think he is bleeding now but hemoglobin has fallen from 9.4 to 7.5 and he is getting his fifth unit Physical Exam Physical Exam: Elderly, looks ill, in no distress Results & Data Vital Signs (Past 12 Hours) Vital Signs Temp Pulse Pulse Resp BP BP Pulse Ox 07/07/24 10:00 65 23 93 07/07/24 10:00 122/50 L 07/07/24 10:00 122/50 L 07/07/24 10:00 122/50 L 07/07/24 09:45 57 L 16 92 07/07/24 09:34 36.8 C 64 20 116/51 L 95 07/07/24 09:30 115/61 07/07/24 09:18 57 L 20 94 07/07/24 09:18 104/48 L 07/07/24 09:18 104/48 L 07/07/24 09:15 117/50 L 07/07/24 09:09 59 L 20 94 07/07/24 09:04 36.6 C 58 L 20 117/50 L 94 07/07/24 09:03 64 18 95 07/07/24 09:03 36.9 C 59 L 18 123/61 93 07/07/24 09:02 123/51 L 07/07/24 08:49 37.0 C 67 20 123/51 L 95 07/07/24 08:48 63 24 96 07/07/24 08:45 108/55 L 07/07/24 08:45 108/55 L 07/07/24 08:45 108/55 L 07/07/24 08:45 64 13 99 07/07/24 08:33 61 20 92 07/07/24 08:33 36.7 C 61 20 105/55 L 97 07/07/24 08:32 105/55 L 07/07/24 08:24 60 19 95 07/07/24 08:11 63 07/07/24 08:11 07/07/24 08:06 61 20 97 07/07/24 08:00 114/52 L 07/07/24 08:00 114/52 L 07/07/24 07:57 63 19 92 07/07/24 07:00 103/55 L 07/07/24 07:00 103/55 L 07/07/24 07:00 67 18 97 07/07/24 07:00 37.0 C 64 20 103/55 L 95 07/07/24 06:01 98/49 L 07/07/24 06:01 98/49 L 07/07/24 06:00 65 12 91 07/07/24 05:00 65 19 81 L 07/07/24 04:48 62 10 L 88 L 07/07/24 04:12 61 9 L 87 L 07/07/24 04:00 94/42 L 07/07/24 04:00 94/42 L 07/07/24 04:00 94/42 L 07/07/24 03:54 65 7 L 95 07/07/24 03:48 64 18 97 07/07/24 03:00 93/55 L 07/07/24 03:00 93/55 L 07/07/24 03:00 93/55 L 07/07/24 03:00 70 20 97 07/07/24 02:30 65 9 L 95 07/07/24 02:20 36.6 C 07/07/24 02:03 63 9 L 97 07/07/24 02:00 100/47 L 07/07/24 02:00 100/47 L 07/07/24 02:00 100/47 L 07/07/24 02:00 100/47 L 07/07/24 02:00 100/47 L 07/07/24 01:21 65 19 84 L 07/07/24 01:00 65 20 90 07/07/24 00:39 68 20 95 07/07/24 00:06 66 10 L 94 07/07/24 00:00 98/51 L 07/06/24 23:24 70 23 94 07/06/24 23:00 69 17 93 07/06/24 23:00 97/47 L 07/06/24 22:30 64 11 L 91 O2 Del Method 07/07/24 10:00 07/07/24 10:00 07/07/24 10:00 07/07/24 10:00 07/07/24 09:45 07/07/24 09:34 07/07/24 09:30 07/07/24 09:18 07/07/24 09:18 07/07/24 09:18 07/07/24 09:15 07/07/24 09:09 07/07/24 09:04 07/07/24 09:03 07/07/24 09:03 07/07/24 09:02 07/07/24 08:49 07/07/24 08:48 07/07/24 08:45 07/07/24 08:45 07/07/24 08:45 07/07/24 08:45 07/07/24 08:33 07/07/24 08:33 07/07/24 08:32 07/07/24 08:24 07/07/24 08:11 07/07/24 08:11 Room Air 07/07/24 08:06 07/07/24 08:00 07/07/24 08:00 07/07/24 07:57 07/07/24 07:00 07/07/24 07:00 07/07/24 07:00 07/07/24 07:00 Room Air 07/07/24 06:01 07/07/24 06:01 07/07/24 06:00 07/07/24 05:00 07/07/24 04:48 07/07/24 04:12 07/07/24 04:00 07/07/24 04:00 07/07/24 04:00 07/07/24 03:54 07/07/24 03:48 07/07/24 03:00 07/07/24 03:00 07/07/24 03:00 07/07/24 03:00 07/07/24 02:30 07/07/24 02:20 07/07/24 02:03 07/07/24 02:00 07/07/24 02:00 07/07/24 02:00 07/07/24 02:00 07/07/24 02:00 07/07/24 01:21 07/07/24 01:00 07/07/24 00:39 07/07/24 00:06 07/07/24 00:00 07/06/24 23:24 07/06/24 23:00 07/06/24 23:00 07/06/24 22:30
--- NOTE | 2024-07-07 12:01 | Hospitalist Progress Note ---
Date of Service July 07, 2024 Assessment & Plan (1) Acute blood loss anemia: (2) Diverticulitis of colon with hemorrhage: (3) Diverticulosis: (4) Dehydration: Plan Mr. Melo is an 89 year old male w/ history of emphysema, pulmonary nodule, aortic valve sclerosis, BPH, bladder stones, degenerative disc disease, bilateral leg edema, postherpetic neuralgia, tobacco abuse, currently living at [facility] admitted through the ED for rectal bleeding. Patient required ICU admission and now s/p 5 U PRBC. s/p colonoscopy/egd revealed hiatal hernia with diffuse gastritis/duodenitis; no active bleed noted; c-scope with multiple diverticula with old blood in colon Concern is for bleeding diverticulum. Transfer pursued for IR embolization #Acute on chronic anemia iso diverticular bleed #Diffuse gastritis and duodenitis #Diverticulitis -4 U PRBCS, required ICU admission, anticipate downgrade in next 24 hours last transfusion 07/05 with goal hgb 8-9 continue to trend H&H continue PPI BID on cefazolin and flagyl IV for diverticulitis Hgb at 7.5 07/07 with 1 U ordered and administered this am #leukocytosis likely iso diverticular bleeding and diverticulitis abx started 07/05 #BPH continue flomax DVT ppx scd Dispo pending transfer for IR review Admission and Anticipated Discharge Date Admission Date: July 04, 2024 Subjective Further drop in hgb from 9.4 to 7.5 this am in 24 hours, multiple reported maroon stools Patient denies any active pain at this time Discussed transfer to [facility] for IR eval, patient consented and verbalized understanding. systolics in 90s this am, responds to 1UPRBC with sbp in 120s s/p transfusion Physical Exam Constitutional: WD/WN, vitals as above Respiratory: normal respiratory effort, lungs clear to auscultation Cardiovascular: RRR, no murmur, no edema Gastrointestinal (Abdomen): normal bowel sounds, soft, nontender, no hepatosplenomegaly Results & Data Results & Data Vital Signs (Past 12 Hours) Vital Signs Temp Pulse Pulse Resp BP BP Pulse Ox 07/07/24 11:34 36.6 C 60 20 116/61 96 07/07/24 11:16 36.6 C 63 16 125/52 L 96 07/07/24 10:34 36.6 C 55 L 20 115/66 93 07/07/24 10:00 65 23 93 07/07/24 10:00 122/50 L 07/07/24 10:00 122/50 L 07/07/24 10:00 122/50 L 07/07/24 09:45 57 L 16 92 07/07/24 09:34 36.8 C 64 20 116/51 L 95 07/07/24 09:30 115/61 07/07/24 09:18 57 L 20 94 07/07/24 09:18 104/48 L 07/07/24 09:18 104/48 L 07/07/24 09:15 117/50 L 07/07/24 09:09 59 L 20 94 07/07/24 09:04 36.6 C 58 L 20 117/50 L 94 07/07/24 09:03 64 18 95 07/07/24 09:03 36.9 C 59 L 18 123/61 93 07/07/24 09:02 123/51 L 07/07/24 08:49 37.0 C 67 20 123/51 L 95 07/07/24 08:48 63 24 96 07/07/24 08:45 108/55 L 07/07/24 08:45 108/55 L 07/07/24 08:45 108/55 L 07/07/24 08:45 64 13 99 07/07/24 08:33 61 20 92 07/07/24 08:33 36.7 C 61 20 105/55 L 97 07/07/24 08:32 105/55 L 07/07/24 08:24 60 19 95 07/07/24 08:11 63 07/07/24 08:11 07/07/24 08:06 61 20 97 07/07/24 08:00 114/52 L 07/07/24 08:00 114/52 L 07/07/24 07:57 63 19 92 07/07/24 07:00 103/55 L 07/07/24 07:00 103/55 L 07/07/24 07:00 67 18 97 07/07/24 07:00 37.0 C 64 20 103/55 L 95 07/07/24 06:01 98/49 L 07/07/24 06:01 98/49 L 07/07/24 06:00 65 12 91 07/07/24 05:00 65 19 81 L 07/07/24 04:48 62 10 L 88 L 07/07/24 04:12 61 9 L 87 L 07/07/24 04:00 94/42 L 07/07/24 04:00 94/42 L 07/07/24 04:00 94/42 L 07/07/24 03:54 65 7 L 95 07/07/24 03:48 64 18 97 07/07/24 03:00 93/55 L 07/07/24 03:00 93/55 L 07/07/24 03:00 93/55 L 07/07/24 03:00 70 20 97 07/07/24 02:30 65 9 L 95 07/07/24 02:20 36.6 C 07/07/24 02:03 63 9 L 97 07/07/24 02:00 100/47 L 07/07/24 02:00 100/47 L 07/07/24 02:00 100/47 L 07/07/24 02:00 100/47 L 07/07/24 02:00 100/47 L 07/07/24 01:21 65 19 84 L 07/07/24 01:00 65 20 90 07/07/24 00:39 68 20 95 07/07/24 00:06 66 10 L 94 O2 Del Method 07/07/24 11:34 07/07/24 11:16 07/07/24 10:34 07/07/24 10:00 07/07/24 10:00 07/07/24 10:00 07/07/24 10:00 07/07/24 09:45 07/07/24 09:34 07/07/24 09:30 07/07/24 09:18 07/07/24 09:18 07/07/24 09:18 07/07/24 09:15 07/07/24 09:09 07/07/24 09:04 07/07/24 09:03 07/07/24 09:03 07/07/24 09:02 07/07/24 08:49 07/07/24 08:48 07/07/24 08:45 07/07/24 08:45 07/07/24 08:45 07/07/24 08:45 07/07/24 08:33 07/07/24 08:33 07/07/24 08:32 07/07/24 08:24 07/07/24 08:11 07/07/24 08:11 Room Air 07/07/24 08:06 07/07/24 08:00 07/07/24 08:00 07/07/24 07:57 07/07/24 07:00 07/07/24 07:00 07/07/24 07:00 07/07/24 07:00 Room Air 07/07/24 06:01 07/07/24 06:01 07/07/24 06:00 07/07/24 05:00 07/07/24 04:48 07/07/24 04:12 07/07/24 04:00 07/07/24 04:00 07/07/24 04:00 07/07/24 03:54 07/07/24 03:48 07/07/24 03:00 07/07/24 03:00 07/07/24 03:00 07/07/24 03:00 07/07/24 02:30 07/07/24 02:20 07/07/24 02:03 07/07/24 02:00 07/07/24 02:00 07/07/24 02:00 07/07/24 02:00 07/07/24 02:00 07/07/24 01:21 07/07/24 01:00 07/07/24 00:39 07/07/24 00:06 Laboratory Results Short CBC 07/06/24 07/07/24 07/07/24 Range/Units 21:00 03:47 13:14 WBC 9.62 (4.8-10.8) K/ul Hgb 7.7 L 7.5 L 9.9 L (14.0-18.0) g/dl Hct 22.8 L 22.4 L 29.6 L (42.0-52.0) % Plt Count 155 (130-400) K/uL BMP 07/07/24 03:47 Sodium 144 Potassium 3.3 L Chloride 113 H Carbon Dioxide 26 BUN 20 Creatinine 0.63 Glucose 83 Calcium 7.9 L Medications Administered Home Medications Medication Instructions Recorded Confirmed Last Taken tamsulosin 0.4 mg capsule (Flomax) 0.8 mg PO HS 11/11/18 07/04/24 10/24/23 cholecalciferol (vitamin D3) 50 50 mcg PO QAM 04/24/21 07/04/24 10/25/23 mcg (2,000 unit) capsule (Vitamin D3) acetaminophen 325 mg tablet 650 mg PO Q6H PRN FEVER/PAIN 05/13/23 07/04/24 Unknown (Tylenol) acetaminophen 500 mg tablet 1,000 mg PO BID 05/13/23 07/04/24 10/25/23 08:30 hydrocortisone 1 % topical cream 1 applic topical QID 05/13/23 07/04/24 10/25/23 17:00 polyethylene glycol 3350 17 gram 17 g PO QAM PRN Constipation 05/13/23 07/04/24 Unknown oral powder packet (Miralax) diclofenac sodium 1 % topical gel 4 g topical Q6H PRN LEFT KNEE PAIN 10/25/23 07/04/24 Unknown aspirin 81 mg tablet,delayed 81 mg PO BID #60 tabs 11/10/23 07/04/24 Unknown release Prevagen 1 tab PO QAM 07/04/24 07/04/24 Unknown dextromethorphan-guaifenesin 30 1 tab PO Q12H 07/04/24 07/04/24 Unknown mg-600 mg tablet extended elosplc70 hr (Mucinex DM) latanoprost 0.005 % eye drops 1 drp OPB HS 07/04/24 07/04/24 Unknown No Nsaids 1 ea Not Applicable UD #1 unit 07/07/24 Unknown pantoprazole 40 mg tablet,delayed 40 mg PO BID gastric erosions #0 07/07/24 07/04/24 10/25/23 release (Protonix) tabs Active Medications Generic Name Dose Route Start Last Admin Trade Name Freq PRN Reason Stop Dose Admin Acetaminophen 650 mg 07/04/24 11:00 07/07/24 03:27 Acetaminophen 325 Mg Tab PO 08/03/24 10:59 650 mg Q4H PRN Administration pain/fever Pantoprazole Sodium 40 mg in 10 mls @ 5 mls/min 07/05/24 21:00 07/07/24 10:03 Protonix IV 08/04/24 20:59 5 mls/min BID [facility] Administration Cefazolin Sodium 2,000 mg in 15 mls @ 3.75 mls/min 07/05/24 16:00 07/07/24 10:03 Ancef 2000mg IV 07/09/24 15:59 3.75 mls/min Q8H [facility] Administration Metronidazole 500 mg in 100 mls @ 100 mls/hr 07/05/24 16:00 07/07/24 11:16 Flagyl IV 07/09/24 15:59 Infused Q8H [facility] Infusion Protocol Tamsulosin HCl 0.4 mg 07/04/24 21:00 07/06/24 19:32 Tamsulosin Hcl 0.4 Mg Cap PO 08/03/24 20:59 0.4 mg HS [facility] Administration
[2024-07-07 13:37] LABS: Hematocrit (blood only) 29.6 % (42.0-52.0); Hemoglobin 9.9 g/dl (14.0-18.0)
--- NOTE | 2024-07-07 14:42 | Discharge Summary ---
Discharge Summary Date of Service July 07, 2024 Principal Dx & Hospital Course #1 = Principal Diagnosis (1) Acute blood loss anemia: (2) Diverticulitis of colon with hemorrhage: (3) Diverticulosis: (4) Dehydration: Plan Mr. Melo is an 89 year old male w/ history of emphysema, pulmonary nodule, aortic valve sclerosis, BPH, bladder stones, degenerative disc disease, bilateral leg edema, postherpetic neuralgia, tobacco abuse, currently living at [facility] admitted through the ED for rectal bleeding. Patient required ICU admission and now s/p 5 U PRBC. s/p colonoscopy/egd revealed hiatal hernia with diffuse gastritis/duodenitis; no active bleed noted; c-scope with multiple diverticula with old blood in colon Concern is for bleeding diverticulum. Transfer pursued for IR embolization to [facility] #Acute on chronic anemia iso diverticular bleed #Diffuse gastritis and duodenitis #Diverticulitis -4 U PRBCS, required ICU admission, anticipate downgrade in next 24 hours last transfusion 07/05 with goal hgb 8-9 continue to trend H&H continue PPI BID on cefazolin and flagyl IV for diverticulitis Hgb at 7.5 07/07 with 1 U ordered and administered this am #leukocytosis likely iso diverticular bleeding and diverticulitis abx started 07/05 #BPH continue flomax DVT ppx scd Dispo pending transfer for IR review Notes For Next Care Provider Transfered given continued GIB without clear source Medication Changes From Visit discontinue NSAIDs Admission HPI Per Admitting Provider Patient is an 89-year-old gentleman resident at [facility] presents to the emergency room after caregivers noted some rectal bleeding. Patient does have a history of diverticulosis and diverticulitis. In the emergency room hemoglobin was greater than 9. There was no signs of active ongoing bleeding. CT imaging question some early diverticulitis. Patient was referred to our service for further evaluation. Time my evaluation patient denies any abdominal pain. He is really even unsure how much bleeding he had. He does recall history of diverticulitis many years ago. He denies any chest pain. No shortness of breath. States has been eating and drinking well. Maybe a little bit of nasal congestion but no cough or other cold symptoms. He denies any swelling in his hands arms legs or feet. 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 Admission Exam Per Admitting Provider constitutional: Alert, slightly pale in appearance, nontoxic HEENT: Mucous membranes moist. Sclera clear Neck: Soft, no adenopathy Lungs: Clear to auscultation, decreased, no wheezes rales or rhonchi CV: S1-S2, regular Abdomen: Soft, nontender, nondistended Extremities: No significant edema Musculoskeletal: No significant joint tenderness Neuro: No focal deficits Psych: Cooperative, normal mood Discharge Exam Constitutional WD/WN, vitals as above Respiratory normal respiratory effort, lungs clear to auscultation Cardiovascular RRR, no murmur, no edema Gastrointestinal (Abdomen) normal bowel sounds, soft, nontender, no hepatosplenomegaly Updated Medication List Medication Instructions Recorded Confirmed Type tamsulosin 0.4 mg capsule (Flomax) 0.8 mg PO HS 11/11/18 07/04/24 History cholecalciferol (vitamin D3) 50 50 mcg PO QAM 04/24/21 07/04/24 History mcg (2,000 unit) capsule (Vitamin D3) acetaminophen 325 mg tablet 650 mg PO Q6H PRN FEVER/PAIN 05/13/23 07/04/24 History (Tylenol) acetaminophen 500 mg tablet 1,000 mg PO BID 05/13/23 07/04/24 History hydrocortisone 1 % topical cream 1 applic topical QID 05/13/23 07/04/24 History polyethylene glycol 3350 17 gram 17 g PO QAM PRN Constipation 05/13/23 07/04/24 History oral powder packet (Miralax) diclofenac sodium 1 % topical gel 4 g topical Q6H PRN LEFT KNEE PAIN 10/25/23 07/04/24 History aspirin 81 mg tablet,delayed 81 mg PO BID #60 tabs 11/10/23 07/04/24 Rx release Prevagen 1 tab PO QAM 07/04/24 07/04/24 History dextromethorphan-guaifenesin 30 1 tab PO Q12H 07/04/24 07/04/24 History mg-600 mg tablet extended [id number] hr (Mucinex DM) latanoprost 0.005 % eye drops 1 drp OPB HS 07/04/24 07/04/24 History No Nsaids 1 ea Not Applicable UD #1 unit 07/07/24 Rx pantoprazole 40 mg tablet,delayed 40 mg PO BID gastric erosions #0 07/07/24 07/04/24 Rx release (Protonix) tabs Hospital Stay Data Consultations 07/04/24 07:53 ED Decision to Admit Stat 07/05/24 07:42 Consult Gastroenterology Routine 07/05/24 12:16 Consult Preanalytics Team Lead Routine Procedures Performed Operation Date: 07/06/24 16:55 Actual Procedures p Colonoscopy - Kenroy Bellamy MD s Esophagogastroduodenoscopy - Kenroy Bellamy MD Diagnostic Imagining Performed 07/04/24 03:59 CT abd pelvis IV con only Stat 07/05/24 18:00 CTA abdomen pelvis w con [CT angio abdomen pelvis w con] Routine Pending Results Patient Have Any Pending Studies at Discharge: No Discharge Instructions Given to Patient (Per Discharging Provider) Mr. Melo is an 89 year old male w/ history of emphysema, pulmonary nodule, aortic valve sclerosis, BPH, bladder stones, degenerative disc disease, bilateral leg edema, postherpetic neuralgia, tobacco abuse, currently living at [facility] admitted through the ED for rectal bleeding. Patient required ICU admission and now s/p 5 U PRBC. s/p colonoscopy/egd revealed hiatal hernia with diffuse gastritis/duodenitis; no active bleed noted; c-scope with multiple diverticula with old blood in colon Concern is for bleeding diverticulum. Transfer pursued for IR embolization #Acute on chronic anemia iso diverticular bleed #Diffuse gastritis and duodenitis #Diverticulitis -4 U PRBCS, required ICU admission, anticipate downgrade in next 24 hours last transfusion 07/05 with goal hgb 8-9 continue to trend H&H continue PPI BID on cefazolin and flagyl IV for diverticulitis Hgb at 7.5 07/07 with 1 U ordered and administered this am #leukocytosis likely iso diverticular bleeding and diverticulitis abx started 07/05 #BPH continue flomax Total Time Total Time Spent Total Time Spent (In Minutes): 45
[2024-07-07 15:00] VITALS: TEMP 98.2
[2024-07-08 00:42] VITALS: BP 127/57; PULSE 54; RESP 17; O2SAT 91
== END 2024-07-08 01:06 | disposition short-term general hospital (02) | DRG 378 ==
LOC: ED 03:54 → 3W 09:07 → SUATTDRO 09:07 → 3W 10:36 → 1E 07-05 11:53

== ENCOUNTER 2025-01-01 11:13 | Inpatient (IN) ==
[2025-01-01] MEDS: SODIUM CHLORIDE 0.9% 500 ML IV SCH (11:51)
[2025-01-01 12:03] LABS: Basophils # (auto) 0.07 K/uL (0.00-0.20); Eosinophils # (auto) 0.12 K/uL (0.00-0.50); Eosinophils % (auto) 1.6 %; Hematocrit (blood only) 43.5 % (42.0-52.0); Hemoglobin 14.5 g/dl (14.0-18.0); Immature Granulocytes # (auto) 0.02 K/uL (0.01-0.20); Immature Granulocytes % (auto) 0.3 %; Lymphocytes % (auto) 9.6 %; Mean Corpuscular Hgb Conc 33.3 g/dL (32.0-36.0); Mean Platelet Volume 10.2 fL (9.4-12.4); Monocytes # (auto) 0.56 K/uL (0.11-0.59); Monocytes % (auto) 7.7 %; Neutrophils # (auto) 5.82 K/uL (1.40-6.50); Neutrophils % (auto) 79.8 %; Platelet Count 215 K/uL (130-400); RDW Coefficient of Variation 14.3 % (11.5-14.5); RDW Standard Deviation 49.8 fL (36.4-46.3); Red Blood Count 4.53 M/uL (4.70-6.10); White Blood Count 7.29 K/ul (4.8-10.8)
--- NOTE | 2025-01-01 12:11 | Emergency Department Note ---
Impression & Plan GI bleed ED Provider Note ED Provider Note NAME: MARILUZ ANAYA AGE:89 SEX: Male : 1935 ARRIVES VIA: EMS INFORMANT: Patient ED PROVIDER(s): Aria Sunshine DO CHIEF COMPLAINT: gi bleed HPI: This is an 89-year-old male presents emergency department via EMS due to concern for a bloody bowel movement. Staff at the facility where he resides contacted family after noting he had blood with a large bowel movement. Family was concerned and asked that he be sent in for further evaluation. Patient does have a history of dementia and is unable to provide any history. He denies any abdominal pain, vomiting, or recent difficulty having a bowel movement. Patient does not know any of his medications or past medical history. PAST MEDICAL HISTORY:See Below PAST SURGICAL HISTORY:See Below FAMILY HISTORY:See Below SOCIAL HISTORY:See Below HOME MEDICATIONS:See Below ALLERGIES:See Below VITALS:See Below PHYSICAL EXAMINATION: GENERAL: alert, unwell appearing, well nourished, no distress, non-toxic EYE EXAM: normal conjunctiva, PERRL and EOM's grossly intact OROPHARYNX: no exudate, no erythema, lips, buccal mucosa, and tongue normal and mucous membranes are moist NECK: supple, no nuchal rigidity, no adenopathy, non-tender LUNGS: Clear to auscultation. Normal chest wall mechanics, no w/r/r HEART: no murmurs, S1 normal and S2 normal ABDOMEN: abdomen soft, non-tender, normo-active bowel sounds, no masses, no rebound or guarding. SKIN: no rashes, petechiae, orbruising UPPER EXTREMITIES: upper extremities are grossly normal. FROM, nml pulses b/l. LOWER EXTREMITIES: No pitting edema. FROM, nml pulses b/l. NEURO EXAM: Confusion, cranial nerves II-XII grossly intact, normal speech, no facial droop,nogross weakness of arms, no gross weakness of legs. Gross sensation intact. No ataxia. Vital Signs: reviewed and remarkable Differential Diagnosis: diverticulosis, AVM, coagulopathy, colitis, inflammatory bowel disease, malignancy, Aleja-Masterson tear, esophagitis, peptic ulcer disease, variceal bleed, gastritis, epistaxis, fissure, hemorrhoids, as well as others were entertained. MEDICAL DECISION MAKING: This is an 89-year-old male sent in by staff at the facility where he resides via EMS due to concern for GI bleed. Patient was afebrile and hemodynamically stable. Patient unable to provide additional history due to his dementia however denied pain during bedside exam. Labs drawn and sent, IV established, EKG and chest ray performed at bedside interpreted by me and patient monitored on telemetry. Patient given gentle IV fluid hydration. H&H stable. After review of prior history I did call and discussed the patient's presentation and evaluation here with his daughter. Bedside rectal exam was heme positive and patient did have melanotic stool. Due to concern for occult diverticular bleed, upper GI bleed given prior history despite use of pantoprazole, concurrent use of aspirin, advanced age and comorbidities, we discussed observation overnight in case of further bleeding or symptomatic change. Case discussed with the hospitalist team for additional evaluation and management. Consultation(s): 1623: Discussed with Dr. Perry, [facility] hospitalist team, for additional evaluation and mgmt. ER Treatment Provided: See below 1505: Rectal exam performed at bedside with FILIBERTO Weiner, nurse assistant center manager. Melanotic stool noted, faintly heme positive on guaiac testing at bedside. 1538: Discussed with daughter, Diana. Admit in June for gi bleed. Required blood transfusion and transfer, unknown source. Thought naproxsyn previously contributing. Recently evaluated for melena thought to be from iron supplementation. Diagnostics Interpreted By Me: -ECG: Sinus bradycardia at 52, leftward axis, right bundle branch block, no acute ST/T wave changes; no change compared to June 2024 -Cardiac Monitoring: An order was placed for continuous cardiac monitoring. The monitor shows a rate of 58 with sinus bradycardia rhythm. -Laboratory studies: As stated above and show below. -Imaging studies: X-ray Chest: A single view study of the chest was reviewed and was negative for cardiomegaly, focal infiltrate, effusion, pulmonary edema, or wide mediastinum. Triage Nursing Note Reviewed Prior/Outside Records Reviewed Past Med/Surg History Problem List (Updated 01/01/25 @ 12:10 by Aria Sunshine DO) GI bleed (Acute) Diarrhea (Acute) Blood in feces (Acute) SunDown syndrome Diverticulitis of colon with hemorrhage Rectal bleeding (Acute) Alcohol abuse Fall (Acute) Closed fracture of left hip (Acute) Confusion (Acute) Weakness (Acute) Leukocytosis (Acute) Acute UTI (urinary tract infection) (Acute) Fall (Acute) CHI (closed head injury) (Acute) Bronchitis Hypoxia (Acute) Weakness (Acute) Sinusitis (Acute) Skin tear of right upper extremity (Acute) Contusion of knee, right (Acute) Contusion of knee, left (Acute) Contusion of nose (Acute) Laceration of face (Acute) Laceration of scalp (Acute) Fall (Acute) CHI (closed head injury) (Acute) Non-traumatic rhabdomyolysis Lung nodule YULISSA (acute kidney injury) (Acute) Dehydration (Acute) Rhabdomyolysis (Acute) Skin tear of left hand without complication (Acute) Fall (Acute) Hypertension Acute head injury Heavy alcohol use Abnormal LFTs Lumbar spinal stenosis DVT prophylaxis Acute pancreatitis (Acute) Abnormal LFTs (Acute) UTI (urinary tract infection) (Acute) Injury of leg, right (Acute) 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 Esophagitis Choledocholithiasis (Acute) Diverticulitis Diverticulosis (Acute) Lower gastrointestinal hemorrhage (Acute) Acute blood loss anemia Anemia (Acute) History of colon polyps Gastric erosions Anemia (Acute) Centrilobular emphysema Left hip pain DDD (degenerative disc disease) BPH (benign prostatic hyperplasia) Medical History Abnormal urinalysis Aortic valve sclerosis Bladder stones History of colon polyps History of COVID-19 Hearing deficit Acute pancreatitis Osteoarthritis Spinal stenosis History of hypertension Mandibular fracture Surgical History History of ERCP (~11/30/20) History of esophagogastroduodenoscopy (EGD) History of colonoscopy Previous back surgery History of tonsillectomy and adenoidectomy Hx of toe surgery Hx of tonsillectomy Hx of hernia repair History of carpal tunnel surgery History of appendectomy Family History Mother Liver cancer Social History Smoking Status: Former smoker Tobacco Type: Cigarettes Second Hand Exposure: No; Do You Dip or Chew Tobacco: No; Tobacco Cessation Education Requested by Patient: No Hx Alcohol Use: Yes Alcohol type: hard liquor Hx Substance Use: No Preferred Language: [place] Communication Ability: Impaired Communication Ability Comment: can communicate, but not always express needs d/t confusion Visual Impairment: No Limitations Rockboard Lather Required: No Beliefs That Will Affect Care: None marital status: Current Living Situation: Spouse and Personal Care Facility Current Living Situation Comment: Lives at [facility] w/ Ibeth Other Information That Helps Us Care for You: No Feels Safe at Home: Yes Safety Concerns: Feels Safe At This Time Assistive Devices: Denture - Lower Allergies Allergies Allergy/AdvReac Type Severity Reaction Status Date / Time meloxicam Allergy Mild RASH Verified 12/17/24 13:46 hydrochlorothiazide AdvReac Severe PANCREATITI Verified 12/17/24 13:46 S morphine AdvReac Severe convulsions Verified 12/17/24 13:46 gabapentin AdvReac Intermediate Fainting Verified 12/17/24 13:46 Home Meds Home Medications Medication Instructions Recorded Confirmed tamsulosin 0.4 mg capsule (Flomax) 0.8 mg PO HS 11/11/18 01/01/25 cholecalciferol (vitamin D3) 50 50 mcg PO QAM 04/24/21 01/01/25 mcg (2,000 unit) capsule (Vitamin D3) acetaminophen 325 mg tablet 650 mg PO Q6H PRN TEMP>100 05/13/23 01/01/25 (Tylenol) acetaminophen 500 mg tablet 1,000 mg PO BID 05/13/23 01/01/25 hydrocortisone 1 % topical cream 1 applic topical QID PRN ITCHINESS 05/13/23 01/01/25 polyethylene glycol 3350 17 gram 17 g PO QAM PRN Constipation 05/13/23 01/01/25 oral powder packet (Miralax) Prevagen 1 tab PO DAILY 07/04/24 01/01/25 latanoprost 0.005 % eye drops 1 drp OPB HS 07/04/24 01/01/25 acetaminophen 325 mg tablet 650 mg PO Q6 PRN Pain 01/01/25 01/01/25 aspirin 81 mg tablet,delayed 81 mg PO DAILY 01/01/25 01/01/25 release ferrous sulfate 325 mg (65 mg 325 mg PO DAILY 01/01/25 01/01/25 iron) tablet pantoprazole 40 mg tablet,delayed 40 mg PO QAM gastric erosions 01/01/25 01/01/25 release (Protonix) turmeric root extract 500 mg tablet 500 mg PO DAILY 01/01/25 01/01/25 Results & Data (ED) Vital Signs Vital Signs - 24 hr 01/01/25 11:23 01/01/25 11:24 01/01/25 11:24 Temperature 36.5 C Temperature Source Oral Pulse Rate 51 L 56 L 52 L Pulse Rate [Finger] Pulse Rate from SpO2 Sensor 50 L Pulse Rhythm Regular Pulse Rhythm [Finger] Pulse Strength Normal Pulse Strength [Finger] Respiratory Rate 18 16 Respiratory Effort / Characteristics Non-Labored Spontaneous Respiratory Depth Normal Respiratory Pattern Regular Blood Pressure 142/76 H 141/71 H Blood Pressure [Right Arm] Blood Pressure Mean 104 94 Blood Pressure Mean [Right Arm] Blood Pressure Position Semi-fowlers Pulse Oximetry 96 96 Oxygen Delivery Method Room Air Sepsis Recent Fever Within 48 Hours No Sepsis New/Unexplained Change in Mental Status No Sepsis Action Taken by Nursing No Action Required 01/01/25 11:30 01/01/25 11:31 01/01/25 12:00 Temperature Temperature Source Pulse Rate 58 L 55 L Pulse Rate [Finger] 57 L Pulse Rate from SpO2 Sensor Pulse Rhythm Pulse Rhythm [Finger] Regular Pulse Strength Pulse Strength [Finger] Normal Respiratory Rate 16 17 18 Respiratory Effort / Characteristics Non-Labored Respiratory Depth Normal Respiratory Pattern Regular Blood Pressure 144/69 H 147/64 H Blood Pressure [Right Arm] 144/69 H Blood Pressure Mean 108 103 Blood Pressure Mean [Right Arm] 94 Blood Pressure Position Pulse Oximetry 96 97 94 Oxygen Delivery Method Room Air Room Air Sepsis Recent Fever Within 48 Hours Sepsis New/Unexplained Change in Mental Status Sepsis Action Taken by Nursing 01/01/25 12:30 01/01/25 13:00 01/01/25 13:30 Temperature Temperature Source Pulse Rate 60 60 52 L Pulse Rate [Finger] Pulse Rate from SpO2 Sensor 60 Pulse Rhythm Pulse Rhythm [Finger] Pulse Strength Pulse Strength [Finger] Respiratory Rate 18 18 18 Respiratory Effort / Characteristics Respiratory Depth Respiratory Pattern Blood Pressure 139/70 136/66 155/71 H Blood Pressure [Right Arm] Blood Pressure Mean 107 96 93 Blood Pressure Mean [Right Arm] Blood Pressure Position Pulse Oximetry 95 96 96 Oxygen Delivery Method Sepsis Recent Fever Within 48 Hours Sepsis New/Unexplained Change in Mental Status Sepsis Action Taken by Nursing 01/01/25 14:00 01/01/25 15:00 01/01/25 15:12 Temperature Temperature Source Pulse Rate 55 L 71 52 L Pulse Rate [Finger] Pulse Rate from SpO2 Sensor Pulse Rhythm Pulse Rhythm [Finger] Pulse Strength Pulse Strength [Finger] Respiratory Rate 18 18 Respiratory Effort / Characteristics Respiratory Depth Respiratory Pattern Blood Pressure 152/67 H 130/70 Blood Pressure [Right Arm] Blood Pressure Mean 76 85 Blood Pressure Mean [Right Arm] Blood Pressure Position Pulse Oximetry 97 95 Oxygen Delivery Method Sepsis Recent Fever Within 48 Hours Sepsis New/Unexplained Change in Mental Status Sepsis Action Taken by Nursing 01/01/25 16:00 01/01/25 16:42 Temperature Temperature Source Pulse Rate 51 L 53 L Pulse Rate [Finger] Pulse Rate from SpO2 Sensor Pulse Rhythm Pulse Rhythm [Finger] Pulse Strength Pulse Strength [Finger] Respiratory Rate 18 14 Respiratory Effort / Characteristics Respiratory Depth Respiratory Pattern Blood Pressure 154/81 H 160/78 H Blood Pressure [Right Arm] Blood Pressure Mean 112 143 Blood Pressure Mean [Right Arm] Blood Pressure Position Pulse Oximetry 95 96 Oxygen Delivery Method Sepsis Recent Fever Within 48 Hours Sepsis New/Unexplained Change in Mental Status Sepsis Action Taken by Nursing Laboratory Data 01/01/25 18:45 01/01/25 11:26 Lab Results 01/01/25 Range/Units 11:26 WBC 7.29 (4.8-10.8) K/ul RBC 4.53 L (4.70-6.10) M/uL Hgb 14.5 (14.0-18.0) g/dl Hct 43.5 (42.0-52.0) % MCV 96.0 (80.0-100.0) fL MCH 32.0 (25.0-34.0) pg MCHC 33.3 (32.0-36.0) g/dL RDW Std Deviation 49.8 H (36.4-46.3) fL RDW Coeff of Jocelyn 14.3 (11.5-14.5) % Plt Count 215 (130-400) K/uL MPV 10.2 (9.4-12.4) fL Immature Gran % (Auto) 0.3 % Neut % (Auto) 79.8 % Lymph % (Auto) 9.6 % Bremer % (Auto) 7.7 % Eos % (Auto) 1.6 % Baso % (Auto) 1.0 % Neut # (Auto) 5.82 (1.40-6.50) K/uL Lymph # (Auto) 0.70 L (1.20-3.40) K/uL Bremer # (Auto) 0.56 (0.11-0.59) K/uL Eos # (Auto) 0.12 (0.00-0.50) K/uL Baso # (Auto) 0.07 (0.00-0.20) K/uL Immature Gran # (Auto) 0.02 (0.01-0.20) K/uL PT 11.2 (9.0-12.0) Seconds INR 1.0 (0.9-1.1) Sodium 144 (136-145) mmol/L Potassium 3.9 (3.5-5.1) mmol/L Chloride 109 H (98-107) mmol/L Carbon Dioxide 30 (21-32) mmol/L Anion Gap 5 (3-11) BUN 22 (6-23) mg/dl Creatinine 0.79 (0.6-1.4) mg/dl Est Cr Clr Drug Dosing 57.4 ml/min eGFR 85.45 BUN/Creatinine Ratio 27.8 H (10-20) Glucose 89 (70-99(Fasting)) mg/dl Calcium 10.1 (8.6-10.3) mg/dl Magnesium 2.2 (1.7-2.4) mg/dl Total Bilirubin 0.7 (0.2-1.0) mg/dl AST 16 (13-39) U/L ALT 10 (7-52) U/L Alkaline Phosphatase 91 (34-104) U/L Troponin I High Sens 4.3 (0-20) pg/ml Total Protein 7.0 (6.0-8.3) gm/dl Albumin 3.9 (3.4-5.0) gm/dl Globulin 3.1 (2.5-4.0) gm/dl Albumin/Globulin Ratio 1.3 (0.9-2) Lipase 21 (11-82) U/L Administered Medications Lactated Ringer's (Lr) 1,000 mls @ 80 mls/hr IV .[id number] [place] Stop: 01/02/25 17:44 Last Admin: 01/01/25 18:39 Dose: 80 mls/hr Documented By: DW Discontinued Medications Sodium Chloride (Nss) 500 mls @ 80 mls/hr IV .[id number] [facility] Stop: 01/01/25 17:59 Last Infusion: 01/01/25 18:35 Dose: Infused Documented By: Admin: 01/01/25 11:51 Dose: 80 mls/hr Documented By: NICOLAS Trimethoprim/Sulfamethoxazole (Sulfamethoxazole/Trimethoprim Ds 800/160mg Tab) 1 tab PO NOW ONE Stop: 01/01/25 16:07 Last Admin: 01/01/25 16:43 Dose: 1 tab Documented By: NICOLAS Imaging Data Radiologist's Impression: Chest X-Ray 01/01/25 11:42 XR chest 1V portable CLINICAL HISTORY: lightheaded COMPARISON STUDY: 11/08/2023 FINDINGS: Heart size and pulmonary vasculature are normal. No effusion, consolidation, or pneumothorax. There is a small density right lower lung. IMPRESSION: Small density right lower lung could represent artifact or small pulmonary nodule. No other acute findings. ACT 112: Negative or not required by law. Electronically signed by: Prasanth Armijo M.D. 01/01/2025 12:10 PM Discharge Plan Visit Data Chief Complaint: GI Bleed ED Provider: Aria Sunshine Discharge Problem: GI bleed Patient Disposition: Admitted As Inpatient Condition: Fair Discharge Instructions Interventions: ED Discharge Assessment Last Done: 01/01/25 18:10
--- NOTE | 2025-01-01 12:11 | XRay Report ---
XR chest 1V portable CLINICAL HISTORY: lightheaded COMPARISON STUDY: 11/08/2023 FINDINGS: Heart size and pulmonary vasculature are normal. No effusion, consolidation, or pneumothora x. There is a small density right lower lung. IMPRESSION: Small density right lower lung could represent artifact or small pulmonary nodule. No oth er acute findings. ACT 112: Negative or not required by law. Electronically signed by: Prasanth Armijo M.D. 01/01/2025 12:10 PM
[2025-01-01 12:19] LABS: Albumin Globulin Ratio 1.3 (0.9-2); Albumin Level 3.9 gm/dl (3.4-5.0); BUN Creatinine Ratio 27.8 (10-20); Bilirubin,Total 0.7 mg/dl (0.2-1.0); Calcium 10.1 mg/dl (8.6-10.3); Creatinine Clr Calc Pharmacy 57.4 ml/min; Globulin 3.1 gm/dl (2.5-4.0); Magnesium 2.2 mg/dl (1.7-2.4); Potassium 3.9 mmol/L (3.5-5.1)
[2025-01-01 12:24] LABS: Troponin I High Sensitivity 4.3 pg/ml (0-20)
[2025-01-01 12:44] LABS: Prothrombin Time 11.2 Seconds (9.0-12.0)
[2025-01-01] MEDS: SULFAMETHOXAZOLE/TRIMETHOPRIM DS 800/160MG TAB PO ONE (16:43)
[2025-01-01] MEDS ORDERED: ALUMINUM/MAGNESIUM SUSP 30 ML UDC PO PRN (16:45)
[2025-01-01] MEDS ORDERED: ACETAMINOPHEN 325 MG TAB PO PRN (16:45)
--- NOTE | 2025-01-01 16:57 | History & Physical Report ---
Date of Service January 01, 2025 Assessment & Plan (1) GI bleed: Plan GI bleed, likely lower GI History of diverticular bleed, concern for diverticular bleed this time. Hemoglobin stable around 14.5, monitor H&H every 6 hours. Blood transfusion consent obtained, continue home PPI, keep n.p.o., IV fluids.Hold aspirin. GI consult. History of gastritis and duodenitis: Continue home PPI. Ho BP: c/w home flomax. Abn CXR: repeat CT chest as OP to f/u on the RLL nodule. DVT prophylaxis: SCDs Full code History of Present Illness Chief Complaint: Bright red blood per rectum. Primary Care Provider: Chris Gayle MD 89-year-old gentleman resident at [facility] presents to the emergency room after caregivers noted bright red blood with large bowel movement today. Patient does have a history of diverticulosis and diverticulitis. Patient is wheelchair-bound and he was noted to have some accidents w/ melanotic stool about 2 weeks ago and was brought to the ED. His hemoglobin was stable and given his iron supplementation intake, the dark color of the stool was attributed to it. Pt was discharged home. Patient did have severe [likely] diverticular bleed June of last year needing transfer to [facility]. In the interim he has been doing fine. Today he was noted to have bright red blood with large bowel movement. Patient denies abdominal pain. Patient denies sore throat/cough/chest pain/palpitation/dizziness. Patient is not aware why he is in the hospital. Pt has dementia. Patient's daughter Madelaine was given a phone call and history was taken from chart review/discussion with ED provider/discussion with patient's daughter. Diana was updated on plan of care, also blood transfusion consent was obtained from her, she agreed for transfusion if needed. Patient is full code per patient's daughter Diana. Medications reviewed. Blood transfusion consent signed. Allergies Allergy/AdvReac Type Severity Reaction Status Date / Time meloxicam Allergy Mild RASH Verified 12/17/24 13:46 hydrochlorothiazide AdvReac Severe PANCREATITI Verified 12/17/24 13:46 S morphine AdvReac Severe convulsions Verified 12/17/24 13:46 gabapentin AdvReac Intermediate Fainting Verified 12/17/24 13:46 Home Medications Medication Instructions Recorded Confirmed Type tamsulosin 0.4 mg capsule (Flomax) 0.8 mg PO HS 11/11/18 01/01/25 History cholecalciferol (vitamin D3) 50 50 mcg PO QAM 04/24/21 01/01/25 History mcg (2,000 unit) capsule (Vitamin D3) acetaminophen 325 mg tablet 650 mg PO Q6H PRN TEMP>100 05/13/23 01/01/25 History (Tylenol) acetaminophen 500 mg tablet 1,000 mg PO BID 05/13/23 01/01/25 History hydrocortisone 1 % topical cream 1 applic topical QID PRN ITCHINESS 05/13/23 01/01/25 History polyethylene glycol 3350 17 gram 17 g PO QAM PRN Constipation 05/13/23 01/01/25 History oral powder packet (Miralax) Prevagen 1 tab PO DAILY 07/04/24 01/01/25 History latanoprost 0.005 % eye drops 1 drp OPB HS 07/04/24 01/01/25 History acetaminophen 325 mg tablet 650 mg PO Q6 PRN Pain 01/01/25 01/01/25 History aspirin 81 mg tablet,delayed 81 mg PO DAILY 01/01/25 01/01/25 History release ferrous sulfate 325 mg (65 mg 325 mg PO DAILY 01/01/25 01/01/25 History iron) tablet pantoprazole 40 mg tablet,delayed 40 mg PO QAM gastric erosions 01/01/25 01/01/25 History release (Protonix) turmeric root extract 500 mg tablet 500 mg PO DAILY 01/01/25 01/01/25 History Past Med/Surg History Problem List (Updated 01/01/25 @ 12:10 by Aria Sunshine, ) GI bleed (Acute) Diarrhea (Acute) Blood in feces (Acute) SunDown syndrome Diverticulitis of colon with hemorrhage Rectal bleeding (Acute) Alcohol abuse Fall (Acute) Closed fracture of left hip (Acute) Confusion (Acute) Weakness (Acute) Leukocytosis (Acute) Acute UTI (urinary tract infection) (Acute) Fall (Acute) CHI (closed head injury) (Acute) Bronchitis Hypoxia (Acute) Weakness (Acute) Sinusitis (Acute) Skin tear of right upper extremity (Acute) Contusion of knee, right (Acute) Contusion of knee, left (Acute) Contusion of nose (Acute) Laceration of face (Acute) Laceration of scalp (Acute) Fall (Acute) CHI (closed head injury) (Acute) Non-traumatic rhabdomyolysis Lung nodule YULISSA (acute kidney injury) (Acute) Dehydration (Acute) Rhabdomyolysis (Acute) Skin tear of left hand without complication (Acute) Fall (Acute) Hypertension Acute head injury Heavy alcohol use Abnormal LFTs Lumbar spinal stenosis DVT prophylaxis Acute pancreatitis (Acute) Abnormal LFTs (Acute) UTI (urinary tract infection) (Acute) Injury of leg, right (Acute) 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 Esophagitis Choledocholithiasis (Acute) Diverticulitis Diverticulosis (Acute) Lower gastrointestinal hemorrhage (Acute) Acute blood loss anemia Anemia (Acute) History of colon polyps Gastric erosions Anemia (Acute) Centrilobular emphysema Left hip pain DDD (degenerative disc disease) BPH (benign prostatic hyperplasia) Medical History Abnormal urinalysis Aortic valve sclerosis Bladder stones History of colon polyps History of COVID-19 Hearing deficit Acute pancreatitis Osteoarthritis Spinal stenosis History of hypertension Mandibular fracture Surgical History History of ERCP (~11/30/20) History of esophagogastroduodenoscopy (EGD) History of colonoscopy Previous back surgery History of tonsillectomy and adenoidectomy Hx of toe surgery Hx of tonsillectomy Hx of hernia repair History of carpal tunnel surgery History of appendectomy Family History Mother Liver cancer Social History Smoking Status: Former smoker Tobacco Type: Cigarettes Second Hand Exposure: No; Do You Dip or Chew Tobacco: No; Hx Alcohol Use: Yes Alcohol type: hard liquor Hx Substance Use: No Preferred Language: French Communication Ability: Effective Communication Ability Comment: pt can communicate but can not always express needs d/t confusion. Visual Impairment: No Limitations Security Supervisor Required: No Beliefs That Will Affect Care: None marital status: Current Living Situation: Spouse and Personal Care Facility Current Living Situation Comment: Lives at [facility] w/ Ibeth Feels Safe at Home: Yes Assistive Devices: Walker Review of Systems Review of Systems: Negative otherwise mentioned in HPI. Physical Exam Physical Exam: GENERAL: drowsy and oriented x3. NAD, on RA. Appears old/frail/weak HEENT: No pallor, no icterus. Pupils equal, round and reactive to light. Oral mucosa dry. NECK: No JVD, no neck masses. HEART: S1 and S2 heard. Regular rate and rhythm. No murmur, no gallop. RESPIRATORY SYSTEM: Normal AP diameter. No accessory muscle use. No wheezing, no crackles. ABDOMEN: Soft, bowel sounds present, nontender, no distention. CENTRAL NERVOUS SYSTEM: No facial droop. Speech is clear. Obeys simple commands. Moves extremities. EXTREMITIES: No edema, no erythema seen. Results & Data Results & Data Vital Signs (Past 12 Hours) Vital Signs Temp Pulse Pulse Resp BP BP Pulse Ox 01/01/25 15:12 52 L 01/01/25 11:31 57 L 17 144/69 H 97 01/01/25 11:24 52 L 01/01/25 11:24 36.5 C 56 L 16 141/71 H 96 O2 Del Method 01/01/25 15:12 01/01/25 11:31 Room Air 01/01/25 11:24 01/01/25 11:24 Room Air
[2025-01-01] MEDS: LACTATED RINGER'S 1,000 ML IV SCH (18:39)
[2025-01-01 19:17] LABS: Appearance Urine Clear (Clear); Bacteria Urine Automated None Seen (None Seen); Bilirubin Urine Negative (Negative); Blood Urine Negative (Negative); Cast Urine Automated 0-2 /lpf (0-2); Color Urine Yellow; Epithelial Cell Urine Auto 0-2 /hpf (0-2); Glucose Urine UA Negative (Negative); Ketones Urine Negative (Negative); Leukocyte Esterase Urine 2+ (Negative); Nitrite Urine Negative (Negative); Protein Urine Negative (Negative); RBC Urine Automated 0-2 /hpf (0-2); Specific Gravity Urine 1.021 (1.000-1.030); Urobilinogen Urine Negative (Negative); WBC Urine Automated 21-50 /hpf (0-5)
[2025-01-01 19:18] LABS: Hematocrit (blood only) 43.3 % (42.0-52.0); Hemoglobin 14.1 g/dl (14.0-18.0)
[2025-01-01] MEDS: TAMSULOSIN HCL 0.4 MG CAP PO SCH (21:59)
[2025-01-02 01:07] LABS: Hematocrit (blood only) 41.5 % (42.0-52.0); Hemoglobin 13.8 g/dl (14.0-18.0)
[2025-01-02 07:25] LABS: Hematocrit (blood only) 40.8 % (42.0-52.0); Hemoglobin 13.7 g/dl (14.0-18.0); Mean Corpuscular Hemoglobin 31.9 pg (25.0-34.0); Mean Corpuscular Hgb Conc 33.6 g/dL (32.0-36.0); Mean Corpuscular Volume 94.9 fL (80.0-100.0); Platelet Count 162 K/uL (130-400); RDW Coefficient of Variation 14.1 % (11.5-14.5); RDW Standard Deviation 48.6 fL (36.4-46.3); White Blood Count 5.79 K/ul (4.8-10.8)
[2025-01-02 07:49] LABS: BUN Creatinine Ratio 21.3 (10-20); Calcium 9.3 mg/dl (8.6-10.3); Creatinine Clr Calc Pharmacy 70.3 ml/min; Magnesium 1.9 mg/dl (1.7-2.4); Phosphorus 3.1 mg/dl (2.5-4.9); Potassium 4.2 mmol/L (3.5-5.1)
[2025-01-02] MEDS: PANTOprazole 40 MG TAB PO SCH (09:09)
[2025-01-02] MEDS: FERROUS SULFATE 325 MG TAB PO SCH (09:09)
[2025-01-02] MEDS: ACETAMINOPHEN 325 MG TAB PO PRN (09:10)
--- NOTE | 2025-01-02 10:27 | Gastrointestinal Consultation ---
Date of Consultation January 02, 2025 Assessment & Plan (1) GI bleed: Plan Patient was admitted for sudden onset rectal bleeding. He has not had further bleeding or bowel movements since he has been admitted. Suspect that this is diverticular in nature. In absence of active bleeding with stable hgb, would continue to monitor at this time. Patient was agreeable with this. - follow hgb/hct and transfuse as needed. - continue with protonix 40mg once daily. Supervising Physician Co-Signing Physician Notes I agree with the advanced practitioner's documentation above regarding review of case, evaluation, and assessment and plan unless outlined below. This was a shared visit in which I was present during all aspects of the case including evaluation, discussion of case, review of data and test results, interpretation of data and test results, complex medical decision making, coordination of care, communication with patient and family and direction of ancillary services. At this time the patient is no longer having any evidence of rectal bleeding and has stable blood counts. He is status post colonoscopy June 2024 for similar presentation without observed bleeding. The patient may continue to have diet as tolerated. No intervention is necessary. Kindly recall the GI service as needed History of Present Illness Reason for Consultation: lower GIB Requesting Physician: Elizabeth Perry MD Attending Physician: Ra Acosta MD History of Present Illness Patient is an 89 year old gentleman who presented to the emergency room after caregivers noted bright red blood with large bowel movement that was similar to diverticular bleeding he had in the past. Stools have been reported as darker at times, but it was felt to be secondary to oral iron use as hgb was stable. Patient did have suspected diverticular bleed in June 2024 which required transfer to [facility]. Per patient, no IR intervention was needed, but I do not have records in regards to this. he denies any nausea, vomiting, abdominal pain, changes in bowels. Per nursing, since admission, the patient has not had any bowel movements and no further bleeding has been reported. 01/02/25 hgb 13.7, hct 40.8, wbc 5.7, plts 162, INR 1, Na 141, K 4.2, BUN 13, Creatinine .61. LFTs wnl. lipase 21. 06/2024 EGD - hiatal hernia and gastritis. 06/2024 Colonoscopy - There were multiple diverticula in the sigmoid and descending colon there was old blood as well as stool in the sigmoid and descending which was cleaned as much as possible could not advance beyond descending colon as could not visualize the lumen despite efforts to clean no active bleeding seen up to the extent examined. Allergies Allergy/AdvReac Type Severity Reaction Status Date / Time meloxicam Allergy Mild RASH Verified 12/17/24 13:46 hydrochlorothiazide AdvReac Severe PANCREATITI Verified 12/17/24 13:46 S morphine AdvReac Severe convulsions Verified 12/17/24 13:46 gabapentin AdvReac Intermediate Fainting Verified 12/17/24 13:46 Home Medications Medication Instructions Recorded Confirmed Type tamsulosin 0.4 mg capsule (Flomax) 0.8 mg PO HS 11/11/18 01/01/25 History cholecalciferol (vitamin D3) 50 50 mcg PO QAM 04/24/21 01/01/25 History mcg (2,000 unit) capsule (Vitamin D3) acetaminophen 325 mg tablet 650 mg PO Q6H PRN TEMP>100 05/13/23 01/01/25 History (Tylenol) acetaminophen 500 mg tablet 1,000 mg PO BID 05/13/23 01/01/25 History hydrocortisone 1 % topical cream 1 applic topical QID PRN ITCHINESS 05/13/23 01/01/25 History polyethylene glycol 3350 17 gram 17 g PO QAM PRN Constipation 05/13/23 01/01/25 History oral powder packet (Miralax) Prevagen 1 tab PO DAILY 07/04/24 01/01/25 History latanoprost 0.005 % eye drops 1 drp OPB HS 07/04/24 01/01/25 History acetaminophen 325 mg tablet 650 mg PO Q6 PRN Pain 01/01/25 01/01/25 History aspirin 81 mg tablet,delayed 81 mg PO DAILY 01/01/25 01/01/25 History release ferrous sulfate 325 mg (65 mg 325 mg PO DAILY 01/01/25 01/01/25 History iron) tablet pantoprazole 40 mg tablet,delayed 40 mg PO QAM gastric erosions 01/01/25 01/01/25 History release (Protonix) turmeric root extract 500 mg tablet 500 mg PO DAILY 01/01/25 01/01/25 History Patient History Medical History Abnormal urinalysis Aortic valve sclerosis Bladder stones History of colon polyps History of COVID-19 Hearing deficit Acute pancreatitis Osteoarthritis Spinal stenosis History of hypertension Mandibular fracture Surgical History History of ERCP (~11/30/20) History of esophagogastroduodenoscopy (EGD) History of colonoscopy Previous back surgery History of tonsillectomy and adenoidectomy Hx of toe surgery Hx of tonsillectomy Hx of hernia repair History of carpal tunnel surgery History of appendectomy Family History Mother Liver cancer Social History Smoking Status: Former smoker Tobacco Type: Cigarettes Second Hand Exposure: No; Do You Dip or Chew Tobacco: No; Tobacco Cessation Education Requested by Patient: No Hx Alcohol Use: Yes Alcohol type: hard liquor Hx Substance Use: No Preferred Language: Icelandic Communication Ability: Impaired Communication Ability Comment: can communicate, but not always express needs d/t confusion Visual Impairment: No Limitations Highway Engineering Teacher Required: No Beliefs That Will Affect Care: None marital status: Current Living Situation: Spouse and Personal Care Facility Current Living Situation Comment: Lives at [facility] w/ Ibeth Other Information That Helps Us Care for You: No Feels Safe at Home: Yes Safety Concerns: Feels Safe At This Time Assistive Devices: Wheelchair Review of Systems Review of Systems: All systems reviewed & are unremarkable except as noted in HPI & below Physical Exam Constitutional: WD/WN, vitals as above Respiratory: normal respiratory effort, lungs clear to auscultation Cardiovascular: Rate/Rhythm: regular rate and regular rhythm Gastrointestinal (Abdomen): normal bowel sounds, soft, nontender, no hepatosplenomegaly Psychiatric: Orientation: alert and oriented x 3 Affect: euthymic affect Results & Data Vital Signs (Past 12 Hours) Vital Signs Temp Pulse Pulse Resp BP Pulse Ox O2 Del Method 01/02/25 08:17 97.5 F L 50 L 16 126/74 95 Room Air 01/02/25 03:20 97.9 F 59 L 18 122/70 97 Room Air 01/01/25 23:29 97.2 F L 53 L 20 164/80 H 95 Room Air 01/01/25 23:14 46 L Coding Level of Care Code 59273 INT INP/OBS CARE 255MIN Diagnoses GI bleed K92.2
--- NOTE | 2025-01-02 12:09 | XRay Report ---
XR lumbar spine 2-3V CLINICAL HISTORY: back pain COMPARISON STUDY: 11/04/2023 FINDINGS: Stable mild scoliosis. Stable moderate height loss at the L1 vertebral body. No acute fract ure or subluxation seen. There is moderate diffuse degenerative disc disease and lower lumbar facet d egeneration. There are diffuse aortic calcifications. IMPRESSION: 1. No acute fracture seen. Stable old fracture at L1. 2. Degenerative disc disease. ACT 112: Negative or not required by law. Electronically signed by: Prasanth Armijo M.D. 01/02/2025 12:08 PM
--- NOTE | 2025-01-02 12:11 | XRay Report ---
XR shoulder RT min 2V routine CLINICAL HISTORY: shoulder pain COMPARISON: 05/03/2022 FINDINGS: There is severe narrowing of the subacromial space suggesting chronic rotator cuff injury. There is mild AC joint and glenohumeral joint osteoarthritis. No acute fracture or dislocation. Ther e is an old healed fracture lateral right third rib. IMPRESSION: No acute fracture seen. ACT 112: Negative or not required by law. Electronically signed by: Prasanth Armijo M.D. 01/02/2025 12:09 PM
--- NOTE | 2025-01-02 13:49 | Hospitalist Progress Note ---
Date of Service January 02, 2025 Assessment & Plan (1) GI bleed: Plan GI bleed, likely lower GI Suspected secondary to diverticular in nature --Recent CT showed extensive colonic diverticulosis Aspirin on hold Avoid anticoagulation Continue home Protonix Appreciate GI input Monitor H&H and transfuse as needed Advance diet as tolerated Right lower lobe pulmonary nodule/density Denies any respiratory symptoms Will recommend to get CT chest in 3 months as outpatient Chronic bradycardia Avoid AV ron blocking agents Monitor Abnormal urinalysis Urine culture pending Denies any UTI symptoms Low back pain: Due to degenerative disc disease/old L1 fracture Shoulder pain: Likely due to chronic rotator cuff injury, osteoarthritis --Lumbar X ray:No acute fracture seen. Stable old fracture at L1. Degenerative disc disease. --Shoulder X ray: No acute findings PT OT, pain control as needed H/O Gastritis and duodenitis: Continue home PPI. BPH Continue Flomax. DVT Px: SCDs Re: GI bleed Code Status Full code Disposition PT OT prior to discharge Admission and Anticipated Discharge Date Admission Date: January 01, 2025 Subjective Patient is seen and examined at bedside States having shoulder and lower back pain this morning No recurrence of bleeding today Hemoglobin stable Denies any chest pain, dyspnea, nausea, vomiting, abdominal pain Review of Systems Review of Systems: All systems reviewed & are unremarkable except as noted in Subjective Physical Exam Physical Exam: Physical Exam: Vitals signs as noted above General Appearance:Thin, frail, no apparent distress, elderly Head: normocephalic, Atraumatic Eyes: normal inspection, EOMI Neck: supple, Trachea midline Respiratory/Chest: Normal breath sounds, CTA, No accessory muscle use Cardiovascular: S1, S2, No murmur Abdomen/GI:Soft, Non tender, Bowel sounds present Extremities/Musculoskeletal:normal inspection, no edema Neurologic/Psych:AAOX2, grossly no focal neurological deficits Skin: normal color, warm Results & Data Results & Data Vital Signs (Past 12 Hours) Vital Signs Temp Pulse Resp BP Pulse Ox O2 Del Method 01/02/25 12:19 36.5 C 60 18 145/78 H 98 Room Air 01/02/25 08:17 36.4 C L 50 L 16 126/74 95 Room Air 01/02/25 03:20 36.6 C 59 L 18 122/70 97 Room Air Laboratory Results Short CBC 01/01/25 01/02/25 01/02/25 Range/Units 18:45 00:45 06:29 WBC 5.79 (4.8-10.8) K/ul Hgb 14.1 13.8 L 13.7 L (14.0-18.0) g/dl Hct 43.3 41.5 L 40.8 L (42.0-52.0) % Plt Count 162 (130-400) K/uL BMP 01/02/25 06:29 Sodium 141 Potassium 4.2 Chloride 108 H Carbon Dioxide 29 BUN 13 Creatinine 0.61 Glucose 94 Calcium 9.3 Urine 01/01/25 Range/Units Unknown Urine Color Yellow Urine Appearance Clear (Clear) Urine pH 6.0 (4.5-7.5) Ur Specific [place] 1.021 (1.000-1.030) Urine Protein Negative (Negative) Urine Glucose (UA) Negative (Negative)
[2025-01-02] MEDS: ACETAMINOPHEN 1,000 MG/100 ML VIAL IV ONE (13:57)
--- NOTE | 2025-01-02 16:25 | Electrocardiogram Report ---
Test Reason : Blood Pressure : */* mmHG Vent. Rate : 52 BPM Atrial Rate : 52 BPM P-R Int : 162 ms QRS Dur : 130 ms QT Int : 452 ms P-R-T Axes : * -33 20 degrees QTcB Int : 420 ms Sinus bradycardia with sinus arrhythmia Left axis deviation Right bundle branch block Abnormal ECG When compared with ECG of 04-Jul-2024 04:01, No significant change Confirmed by Marino Montes ([id number]) on 01/02/2025 4:25:16 PM Referred By: REFERRED SELF Confirmed By: Marino Montes
[2025-01-03 07:06] LABS: Hematocrit (blood only) 43.8 % (42.0-52.0); Hemoglobin 14.7 g/dl (14.0-18.0); Mean Corpuscular Hemoglobin 31.5 pg (25.0-34.0); Mean Corpuscular Hgb Conc 33.6 g/dL (32.0-36.0); Mean Corpuscular Volume 93.8 fL (80.0-100.0); Mean Platelet Volume 9.8 fL (9.4-12.4); Platelet Count 170 K/uL (130-400); RDW Coefficient of Variation 13.6 % (11.5-14.5); Red Blood Count 4.67 M/uL (4.70-6.10); White Blood Count 5.74 K/ul (4.8-10.8)
[2025-01-03 07:11] VITALS: RESP 20; TEMP 97.3
[2025-01-03 07:19] LABS: BUN Creatinine Ratio 19.7 (10-20); Calcium 9.7 mg/dl (8.6-10.3); Creatinine Clr Calc Pharmacy 65.1 ml/min; Potassium 4.2 mmol/L (3.5-5.1)
[2025-01-03 10:54] VITALS: BP 126/72; PULSE 61; O2SAT 93
--- NOTE | 2025-01-03 11:46 | Hospitalist Progress Note ---
Date of Service January 03, 2025 Assessment & Plan (1) GI bleed: Plan GI bleed, likely lower GI Suspected secondary to diverticular in nature --Recent CT showed extensive colonic diverticulosis Aspirin on hold Avoid anticoagulation Continue home Protonix Appreciate GI input Monitor H&H and transfuse as needed Tolerated diet with no issues No recurrence of bleeding Plan to be discharged to personal care facility today Right lower lobe pulmonary nodule/density Denies any respiratory symptoms Will recommend to get CT chest in 3 months as outpatient Chronic bradycardia Avoid AV ron blocking agents Monitor Abnormal urinalysis UTI ruled out Urine culture: Probable skin marya Low back pain: Due to degenerative disc disease/old L1 fracture Shoulder pain: Likely due to chronic rotator cuff injury, osteoarthritis --Lumbar X ray:No acute fracture seen. Stable old fracture at L1. Degenerative disc disease. --Shoulder X ray: No acute findings PT OT, pain control as needed Pain improved H/O Gastritis and duodenitis: Continue home PPI. BPH Continue Flomax. DVT Px: SCDs Re: GI bleed Code Status Full code Disposition Personal care facility Admission and Anticipated Discharge Date Admission Date: January 01, 2025 Subjective Patient is seen and examined at bedside No recurrence of bleeding per rectum Lower back pain improved Still has some shoulder pain otherwise no other complaints Denies any chest pain, dyspnea, nausea, vomiting, abdominal pain Plan to be discharged to personal care facility today Updated patient's daughter over the phone in detail. Review of Systems Review of Systems: All systems reviewed & are unremarkable except as noted in Subjective Physical Exam Physical Exam: Physical Exam: Vitals signs as noted above General Appearance:Thin, frail, no apparent distress, elderly Head: normocephalic, Atraumatic Eyes: normal inspection, EOMI Neck: supple, Trachea midline Respiratory/Chest: Normal breath sounds, CTA, No accessory muscle use Cardiovascular: S1, S2, No murmur Abdomen/GI:Soft, Non tender, Bowel sounds present Extremities/Musculoskeletal:normal inspection, no edema Neurologic/Psych:AAOX2, grossly no focal neurological deficits Skin: normal color, warm Results & Data Results & Data Vital Signs (Past 12 Hours) Vital Signs Temp Pulse Pulse Resp BP Pulse Ox O2 Del Method 01/03/25 10:53 36.3 C L 61 20 126/72 93 Room Air 01/03/25 07:09 36.3 C L 66 20 145/76 H 97 Room Air 01/03/25 03:03 36.5 C 66 16 155/64 H 95 Room Air 01/03/25 00:50 64 Laboratory Results Short CBC 01/03/25 Range/Units 06:37 WBC 5.74 (4.8-10.8) K/ul Hgb 14.7 (14.0-18.0) g/dl Hct 43.8 (42.0-52.0) % Plt Count 170 (130-400) K/uL BMP 01/03/25 06:37 Sodium 139 Potassium 4.2 Chloride 105 Carbon Dioxide 28 BUN 13 Creatinine 0.66 Glucose 105 H Calcium 9.7
--- NOTE | 2025-01-03 12:01 | Discharge Summary ---
Date of Service January 03, 2025 Admission HPI Per Admitting Provider 89-year-old gentleman resident at [facility] presents to the emergency room after caregivers noted bright red blood with large bowel movement today. Patient does have a history of diverticulosis and diverticulitis. Patient is wheelchair-bound and he was noted to have some accidents w/ melanotic stool about 2 weeks ago and was brought to the ED. His hemoglobin was stable and given his iron supplementation intake, the dark color of the stool was attributed to it. Pt was discharged home. Patient did have severe [likely] diverticular bleed June of last year needing transfer to [facility]. In the interim he has been doing fine. Today he was noted to have bright red blood with large bowel movement. Patient denies abdominal pain. Patient denies sore throat/cough/chest pain/palpitation/dizziness. Patient is not aware why he is in the hospital. Pt has dementia. Patient's daughter Madelaine was given a phone call and history was taken from chart review/discussion with ED provider/discussion with patient's daughter. Diana was updated on plan of care, also blood transfusion consent was obtained from her, she agreed for transfusion if needed. Patient is full code per patient's daughter Diana. Medications reviewed. Blood transfusion consent signed. Admission Exam Per Admitting Provider GENERAL: drowsy and oriented x3. NAD, on RA. Appears old/frail/weak HEENT: No pallor, no icterus. Pupils equal, round and reactive to light. Oral mucosa dry. NECK: No JVD, no neck masses. HEART: S1 and S2 heard. Regular rate and rhythm. No murmur, no gallop. RESPIRATORY SYSTEM: Normal AP diameter. No accessory muscle use. No wheezing, no crackles. ABDOMEN: Soft, bowel sounds present, nontender, no distention. CENTRAL NERVOUS SYSTEM: No facial droop. Speech is clear. Obeys simple commands. Moves extremities. EXTREMITIES: No edema, no erythema seen. Principal Diagnosis Bleeding per rectum Right lower lobe density/pulmonary nodule Lumbar degenerative disc disease Discharge Data Allergies Allergy/AdvReac Type Severity Reaction Status Date / Time meloxicam Allergy Mild RASH Verified 12/17/24 13:46 hydrochlorothiazide AdvReac Severe PANCREATITI Verified 12/17/24 13:46 S morphine AdvReac Severe convulsions Verified 12/17/24 13:46 gabapentin AdvReac Intermediate Fainting Verified 12/17/24 13:46 Consultations 01/01/25 16:24 ED Decision to Admit Stat 01/01/25 16:44 Consult Gastroenterology Routine Procedures Performed Laboratory Results WBC 5.74 K/ul (4.8-10.8) 01/03/25 06:37 RBC 4.67 M/uL (4.70-6.10) L 01/03/25 06:37 Hgb 14.7 g/dl (14.0-18.0) 01/03/25 06:37 Hct 43.8 % (42.0-52.0) 01/03/25 06:37 MCV 93.8 fL (80.0-100.0) 01/03/25 06:37 MCH 31.5 pg (25.0-34.0) 01/03/25 06:37 MCHC 33.6 g/dL (32.0-36.0) 01/03/25 06:37 RDW Std Deviation 47.0 fL (36.4-46.3) H 01/03/25 06:37 RDW Coeff of Jocelyn 13.6 % (11.5-14.5) 01/03/25 06:37 Plt Count 170 K/uL (130-400) 01/03/25 06:37 MPV 9.8 fL (9.4-12.4) 01/03/25 06:37 Immature Gran % (Auto) 0.3 % 01/01/25 11:26 Neut % (Auto) 79.8 % 01/01/25 11:26 Lymph % (Auto) 9.6 % 01/01/25 11:26 Geary % (Auto) 7.7 % 01/01/25 11:26 Eos % (Auto) 1.6 % 01/01/25 11:26 Baso % (Auto) 1.0 % 01/01/25 11:26 Neut # (Auto) 5.82 K/uL (1.40-6.50) 01/01/25 11:26 Lymph # (Auto) 0.70 K/uL (1.20-3.40) L 01/01/25 11:26 Geary # (Auto) 0.56 K/uL (0.11-0.59) 01/01/25 11:26 Eos # (Auto) 0.12 K/uL (0.00-0.50) 01/01/25 11:26 Baso # (Auto) 0.07 K/uL (0.00-0.20) 01/01/25 11:26 Immature Gran # (Auto) 0.02 K/uL (0.01-0.20) 01/01/25 11:26 PT 11.2 Seconds (9.0-12.0) 01/01/25 11:26 INR 1.0 (0.9-1.1) 01/01/25 11:26 Sodium 139 mmol/L (136-145) 01/03/25 06:37 Potassium 4.2 mmol/L (3.5-5.1) 01/03/25 06:37 Chloride 105 mmol/L (98-107) 01/03/25 06:37 Carbon Dioxide 28 mmol/L (21-32) 01/03/25 06:37 Anion Gap 6 (3-11) 01/03/25 06:37 BUN 13 mg/dl (6-23) 01/03/25 06:37 Creatinine 0.66 mg/dl (0.6-1.4) 01/03/25 06:37 Est Cr Clr Drug Dosing 65.1 ml/min 01/03/25 06:37 eGFR 90.21 01/03/25 06:37 BUN/Creatinine Ratio 19.7 (10-20) 01/03/25 06:37 Glucose 105 mg/dl (70-99(Fasting)) H 01/03/25 06:37 Calcium 9.7 mg/dl (8.6-10.3) 01/03/25 06:37 Phosphorus 3.1 mg/dl (2.5-4.9) 01/02/25 06:29 Magnesium 1.9 mg/dl (1.7-2.4) 01/02/25 06:29 Total Bilirubin 0.7 mg/dl (0.2-1.0) 01/01/25 11:26 AST 16 U/L (13-39) 01/01/25 11: ALT 10 U/L (7-52) 01/01/25 11:26 Alkaline Phosphatase 91 U/L (34-104) 01/01/25 11:26 Troponin I High Sens 4.3 pg/ml (0-20) 01/01/25 11:26 Total Protein 7.0 gm/dl (6.0-8.3) 01/01/25 11:26 Albumin 3.9 gm/dl (3.4-5.0) 01/01/25 11:26 Globulin 3.1 gm/dl (2.5-4.0) 01/01/25 11:26 Albumin/Globulin Ratio 1.3 (0.9-2) 01/01/25 11:26 Lipase 21 U/L (11-82) 01/01/25 11:26 Urine Color Yellow 01/01/25 Unknown Urine Appearance Clear (Clear) 01/01/25 Unknown Urine pH 6.0 (4.5-7.5) 01/01/25 Unknown Ur Specific [place] 1.021 (1.000-1.030) 01/01/25 Unknown Urine Protein Negative (Negative) 01/01/25 Unknown Urine Glucose (UA) Negative (Negative) 01/01/25 Unknown Urine Ketones Negative (Negative) 01/01/25 Unknown Urine Blood Negative (Negative) 01/01/25 Unknown Urine Nitrite Negative (Negative) 01/01/25 Unknown Urine Bilirubin Negative (Negative) 01/01/25 Unknown Urine Urobilinogen Negative (Negative) 01/01/25 Unknown Ur Leukocyte Esterase 2+ (Negative) H 01/01/25 Unknown Urine WBC (Auto) 21-50 /hpf (0-5) H 01/01/25 Unknown Urine RBC (Auto) 0-2 /hpf (0-2) 01/01/25 Unknown U Hyaline Cast (Auto) 0-2 /lpf (0-2) 01/01/25 Unknown U Epithel Cells (Auto) 0-2 /hpf (0-2) 01/01/25 Unknown Urine Bacteria (Auto) None Seen (None Seen) 01/01/25 Unknown Urine Comment 01/01/25 Unknown Impressions Chest X-Ray 01/01/25 11:42 XR chest 1V portable CLINICAL HISTORY: lightheaded COMPARISON STUDY: 11/08/2023 FINDINGS: Heart size and pulmonary vasculature are normal. No effusion, consolidation, or pneumothorax. There is a small density right lower lung. IMPRESSION: Small density right lower lung could represent artifact or small pulmonary nodule. No other acute findings. ACT 112: Negative or not required by law. Electronically signed by: Prasanth Armijo M.D. 01/01/2025 12:10 PM Lumbar Spine X-Ray 01/02/25 09:38 XR lumbar spine 2-3V CLINICAL HISTORY: back pain COMPARISON STUDY: 11/04/2023 FINDINGS: Stable mild scoliosis. Stable moderate height loss at the L1 vertebral body. No acute fracture or subluxation seen. There is moderate diffuse degenerative disc disease and lower lumbar facet degeneration. There are diffuse aortic calcifications. IMPRESSION: 1. No acute fracture seen. Stable old fracture at L1. 2. Degenerative disc disease. ACT 112: Negative or not required by law. Electronically signed by: Prasanth Armijo M.D. 01/02/2025 12:08 PM Shoulder X-Ray 01/02/25 09:38 XR shoulder RT min 2V routine CLINICAL HISTORY: shoulder pain COMPARISON: 05/03/2022 FINDINGS: There is severe narrowing of the subacromial space suggesting chronic rotator cuff injury. There is mild AC joint and glenohumeral joint osteoarthritis. No acute fracture or dislocation. There is an old healed fracture lateral right third rib. IMPRESSION: No acute fracture seen. ACT 112: Negative or not required by law. Electronically signed by: Prasanth Armijo M.D. 01/02/2025 12:09 PM Hospital Course (1) GI bleed: Plan GI bleed, likely lower GI Suspected secondary to diverticular in nature --Recent CT showed extensive colonic diverticulosis Aspirin on hold Avoid anticoagulation Continue home Protonix Appreciate GI input Monitor H&H and transfuse as needed Tolerated diet with no issues No recurrence of bleeding Plan to be discharged to personal care facility today Right lower lobe pulmonary nodule/density Denies any respiratory symptoms Will recommend to get CT chest in 3 months as outpatient Chronic bradycardia Avoid AV ron blocking agents Monitor Abnormal urinalysis UTI ruled out Urine culture: Probable skin marya Low back pain: Due to degenerative disc disease/old L1 fracture Shoulder pain: Likely due to chronic rotator cuff injury, osteoarthritis --Lumbar X ray:No acute fracture seen. Stable old fracture at L1. Degenerative disc disease. --Shoulder X ray: No acute findings PT OT, pain control as needed Pain improved H/O Gastritis and duodenitis: Continue home PPI. BPH Continue Flomax. DVT Px: SCDs Re: GI bleed Code Status Full code Disposition Personal care facility Total Time Total Time Spent Total Time Spent (In Minutes): 45 minutes Discharge Plan Discharge Items Patient Disposition: Home - Self-Care Reason For Visit: BLOOD PER RECTUM Discharge Diagnosis: Bleeding per rectum Right lower lobe density/pulmonary nodule Lumbar degenerative disc disease Condition on Discharge: Fair Activity: Per Instructions section Exercise/Sports: Gradually increase as tolerated Non-emergency contact: Primary Care Provider and Video Library Assistant Call non-emergency contact if: you have any medication questions, your symptoms worsen, your pain is concerning for you and you have a fever Follow-up/Referrals: Chris Gayle MD [Primary Care Provider] - (Date & Time 01/08/2025 11:00 AM Provider: Светлана Diaz MD General Internal Medicine [facility] ) Diet: Low Fiber Addtl Attending Provider Instructions: Follow-up with your primary care physician Dr. Gayle in 1 week Follow-up with your swatch cutter as recommended --Your aspirin is on hold while you are hospitalized. Consider to resume an 3 days if no recurrence of bleeding. Discuss with your primary care physician for further instructions regarding need for snf use of aspirin (risks Vs Benefits). --You are incidentally noted to have a lung nodule/density on chest x-ray. Obtain a CT chest in 3 months for further evaluation/resolution. Seek immediate medical attention if your symptoms reoccur or worsen Please review medication list provided on discharge for any medication changes as instructed. Please call if you have any questions or problems. You can reach a [facility] hospitalist on duty at [facility] 24 hours a day by calling [phone] Pending Studies at Discharge: No Stand-Alone Forms: [facility], Smoking Cessation Medications and DC Order Prescriptions: Continued tamsulosin [Flomax] 0.4 mg Capsule 0.8 mg PO HS cholecalciferol (vitamin D3) [Vitamin D3] 50 mcg (2,000 unit) Capsule 50 mcg PO QAM acetaminophen [Tylenol] 325 mg Tablet 650 mg PO Q6H MDD 3 GRAMS APAP/24 HOURS PRN (Reason: TEMP>100) polyethylene glycol 3350 [Miralax] 17 gram powder in packet 17 g PO QAM PRN (Reason: Constipation) acetaminophen 500 mg Tablet 1,000 mg PO BID hydrocortisone 1 % Cream 1 applic TOPICAL QID PRN (Reason: ITCHINESS) latanoprost 0.005 % Drops 1 drp OPB HS Prevagen 1 tab PO DAILY turmeric root extract 500 mg Tablet 500 mg PO DAILY acetaminophen 325 mg Tablet 650 mg PO Q6 MDD 3G PRN (Reason: Pain) pantoprazole [Protonix] 40 mg tablet,delayed release (DR/EC) 40 mg PO QAM ferrous sulfate 325 mg (65 mg iron) Tablet 325 mg PO DAILY Held aspirin 81 mg tablet,delayed release (DR/EC) 81 mg PO DAILY Hold Instructions: Resume in 3 days if no recurrence of bleeding Discharge Orders: Discharge Order (Routine); Ordered 01/03/25 Ordered By: Ra Acosta Admission Data Admit Date/Time: 01/01/25 16:45 Attending Provider: Ra Acosta Admit Provider: Elizabeth Perry Primary Care Provider: Chris Gayle Other Providers: Elizabeth Perry; Wally Torres
== END 2025-01-03 14:06 | disposition home or self-care (01) | DRG 379 ==
LOC: ED 11:13 → SUATTDRO 16:45 → 2S 16:45

== ENCOUNTER 2025-05-23 22:16 | Inpatient (IN) ==
[2025-05-23 23:47] LABS: Hematocrit (blood only) 36.5 % (42.0-52.0); Hemoglobin 12.1 g/dL (14.0-18.0); Immature Granulocytes # (auto) 0.03 K/uL (0.01-0.20); Immature Granulocytes % (auto) 0.4 %; Mean Corpuscular Hemoglobin 31.4 pg (25.0-34.0); Mean Corpuscular Volume 94.8 fL (80.0-100.0); Platelet Count 207 K/uL (130-400); RDW Standard Deviation 48.0 fL (36.4-46.3); Red Blood Count 3.85 M/uL (4.70-6.10); White Blood Count 6.99 K/ul (4.8-10.8)
--- NOTE | 2025-05-23 23:48 | Emergency Department Note ---
Impression & Plan GI bleed admit to the [facility] ED Provider Note NAME: MARILUZ ANAYA AGE: 89 SEX: Male INFORMANT: Patient ED PROVIDER(S): Vaishnavi Castro DO CHIEF COMPLAINT: bloody stools PLAN: Disposition: admit to the [facility] MEDICAL DECISION MAKING: This is an 89-year-old male patient from [facility] who had a black tarry bowel movement that then turned bloody. Staff from his home found him on the toilet complaining of low back pain. there was melena in the toilet. EMS was called and he was brought here. The patient was hemodynamically stable. On physical exam, the patient appears dehydrated with pale skin. On rectal exam, there is melena and some bright red bleeding. Laboratory studies revealed no leukocytosis. Hemoglobin is stable at 12.1. BUN is elevated at 25. Creatinine was 0.96 and glucose was 143. patient has a previous history of diverticulitis with hemorrhage and GI bleeding. Care/management discussed with: electronics department manager and [facility] Triage Nursing notes: reviewed and agree With them. Vital Signs: reviewed and unremarkable Chronic Medical/Social Conditions affecting care: significant chronic health issues Differential Diagnosis: upper GI bleed, lower GI bleed, anemia Diagnostics, independently interpreted by me: ECG: normal sinus rhythm at a rate of 67 with PACs and a right bundle branch block. There is no ST segment elevation or signs of ischemia. Cardiac Monitoring: normal sinus rhythm at a rate of 62 HPI: 89 year old Male arrives for evaluation of GI bleeding.male patient from [facility] who had a black tarry bowel movement that then turned bloody. Staff from his home found him on the toilet complaining of low back pain. there was melena in the toilet. EMS was called and he was brought here PAST MEDICAL HISTORY: See Below, PAST SURGICAL HISTORY: See Below, SOCIAL HISTORY: See Below, HOME MEDICATIONS: see list ALLERGIES: see list VITALS: See Below PHYSICAL EXAMINATION: HEENT: Head - normocephalic and atraumatic. Pupils are equal, round, and reactive to light. Extraocular eye muscles are intact, and sclera are anicteric. Nose - moist nasal mucosa without discharge. Mouth - moist buccal mucosa. Oropharynx is nonerythematous and there is no tonsillar exudate or edema noted. Neck: Supple; no cervical lymphadenopathy Heart: Regular rate and rhythm. There is a normal S1 and S2 with no murmurs, clicks, or gallops appreciated. Lungs: Clear to auscultation bilaterally with no wheezes, rales, or rhonchi. Abdomen: Soft, completely nontender, nondistended, with good bowel sounds. There are no palpable pulsatile masses or hepatosplenomegaly. There is no guarding, rigidity, or rebound noted. Extremities: No evidence of cyanosis, clubbing, or edema. There are easily palpable peripheral pulses. Skin: Pale,warm and dry with good turgor and no rashes. Emergency Department course: The patient was evaluated in room B-8. A complete history and physical was performed. Previous electronic medical records were reviewed. Laboratory studies were drawn as above. A type and screen was performed. Order was placed for continuous cardiac monitoring. The patient was in a normal sinus rhythm at a rate of 62. Twelve-lead EKG was obtained as described above. Patient had very little rectal bleeding while here in the emergency department but did have some blood from the rectum that was melanotic and some that was bright red. I did discuss the case with the [facility] Hospitalist and they will evaluate for further inpatient care. Past Med/Surg History Problem List (Updated 05/24/25 @ 03:01 by Vaishnavi Castro DO) GI bleed (Acute) GI bleed (Acute) SunDown syndrome Diverticulitis of colon with hemorrhage Rectal bleeding (Acute) Alcohol abuse Fall (Acute) Closed fracture of left hip (Acute) Confusion (Acute) Weakness (Acute) Leukocytosis (Acute) Acute UTI (urinary tract infection) (Acute) Fall (Acute) CHI (closed head injury) (Acute) Bronchitis Hypoxia (Acute) Weakness (Acute) Sinusitis (Acute) Skin tear of right upper extremity (Acute) Contusion of knee, right (Acute) Contusion of knee, left (Acute) Contusion of nose (Acute) Laceration of face (Acute) Laceration of scalp (Acute) Fall (Acute) CHI (closed head injury) (Acute) Non-traumatic rhabdomyolysis Lung nodule YULISSA (acute kidney injury) (Acute) Dehydration (Acute) Rhabdomyolysis (Acute) Skin tear of left hand without complication (Acute) Fall (Acute) Hypertension Acute head injury Heavy alcohol use Abnormal LFTs Lumbar spinal stenosis DVT prophylaxis Acute pancreatitis (Acute) Abnormal LFTs (Acute) UTI (urinary tract infection) (Acute) Injury of leg, right (Acute) 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 Esophagitis Choledocholithiasis (Acute) Diverticulitis Diverticulosis (Acute) Lower gastrointestinal hemorrhage (Acute) Acute blood loss anemia Anemia (Acute) History of colon polyps Gastric erosions Anemia (Acute) Centrilobular emphysema Left hip pain DDD (degenerative disc disease) BPH (benign prostatic hyperplasia) Medical History Abnormal urinalysis Aortic valve sclerosis Bladder stones History of colon polyps History of COVID-19 Hearing deficit Acute pancreatitis Osteoarthritis Spinal stenosis History of hypertension Mandibular fracture Surgical History History of ERCP (~11/30/20) History of esophagogastroduodenoscopy (EGD) History of colonoscopy Previous back surgery History of tonsillectomy and adenoidectomy Hx of toe surgery Hx of tonsillectomy Hx of hernia repair History of carpal tunnel surgery History of appendectomy Family History Mother Liver cancer Social History Smoking Status: Unknown if ever smoked Tobacco Type: Cigarettes Second Hand Exposure: No; Do You Dip or Chew Tobacco: No; Preferred Language: Tunisian Communication Ability: Effective Communication Ability Comment: can communicate, but not always express needs d/t confusion Visual Impairment: No Limitations Diabetes Education Coordinator Required: No Beliefs That Will Affect Care: None marital status: Current Living Situation: Custodial Current Living Situation Comment: Lives at [facility] [facility] w/ [facility] Feels Safe at Home: Yes Safety Concerns: Feels Safe At This Time Assistive Devices: Hospital Bed Allergies Allergies Allergy/AdvReac Type Severity Reaction Status Date / Time meloxicam Allergy Mild RASH Verified 12/17/24 13:46 hydrochlorothiazide AdvReac Severe PANCREATITI Verified 12/17/24 13:46 S morphine AdvReac Severe convulsions Verified 12/17/24 13:46 gabapentin AdvReac Intermediate Fainting Verified 12/17/24 13:46 Home Meds Home Medications Medication Instructions Recorded Confirmed tamsulosin 0.4 mg capsule (Flomax) 0.8 mg PO HS 11/11/18 05/24/25 cholecalciferol (vitamin D3) 50 50 mcg PO QAM 04/24/21 05/24/25 mcg (2,000 unit) capsule (Vitamin D3) acetaminophen 325 mg tablet 650 mg PO Q6H PRN TEMP>100 05/13/23 05/24/25 (Tylenol) acetaminophen 500 mg tablet 1,000 mg PO BID 05/13/23 05/24/25 polyethylene glycol 3350 17 gram 17 g PO QAM PRN Constipation 05/13/23 05/24/25 oral powder packet (Miralax) Prevagen 1 tab PO DAILY 07/04/24 05/24/25 latanoprost 0.005 % eye drops 1 drp OPB HS 07/04/24 05/24/25 acetaminophen 325 mg tablet 650 mg PO Q6 PRN Pain 01/01/25 05/24/25 ferrous sulfate 325 mg (65 mg 325 mg PO QAM 01/01/25 05/24/25 iron) tablet pantoprazole 40 mg tablet,delayed 40 mg PO QAM gastric erosions 01/01/25 05/24/25 release (Protonix) cyanocobalamin (vitamin B-12) 1,000 mcg PO DAILY 05/24/25 05/24/25 1,000 mcg tablet (Vitamin B-12) loperamide 2 mg capsule 2 mg PO QAM 05/24/25 05/24/25 Results & Data (ED) Vital Signs Vital Signs - 24 hr 05/23/25 22:07 05/23/25 22:07 05/23/25 22:19 Temperature 36.6 C 36.6 C Temperature Source Oral Oral Pulse Rate 81 74 Pulse Rate [Right Finger] 84 Pulse Rhythm [Right Finger] Respiratory Rate 20 20 Respiratory Effort / Characteristics Respiratory Depth Respiratory Pattern Blood Pressure 124/65 Blood Pressure [Right Arm] 124/65 Blood Pressure Mean 84 Blood Pressure Mean [Right Arm] 84 Pulse Oximetry 95 95 Oxygen Delivery Method Room Air Room Air Sepsis Recent Fever Within 48 Hours No Sepsis New/Unexplained Change in Mental Status No Sepsis Action Taken by Nursing No Action Required 05/23/25 23:19 05/24/25 00:00 Temperature Temperature Source Pulse Rate Pulse Rate [Right Finger] 80 Pulse Rhythm [Right Finger] Regular Respiratory Rate 18 Respiratory Effort / Characteristics Non-Labored Spontaneous Respiratory Depth Normal Respiratory Pattern Regular Blood Pressure Blood Pressure [Right Arm] 108/63 Blood Pressure Mean Blood Pressure Mean [Right Arm] 78 Pulse Oximetry 96 92 Oxygen Delivery Method Room Air Room Air Sepsis Recent Fever Within 48 Hours Sepsis New/Unexplained Change in Mental Status Sepsis Action Taken by Nursing Laboratory Data 05/23/25 22:30 05/23/25 22:30 Lab Results 05/23/25 05/23/25 05/23/25 Range/Units 22:30 23:46 23:47 WBC 6.99 (4.8-10.8) K/ul RBC 3.85 L (4.70-6.10) M/uL Hgb 12.1 L (14.0-18.0) g/dL Hct 36.5 L (42.0-52.0) % MCV 94.8 (80.0-100.0) fL MCH 31.4 (25.0-34.0) pg MCHC 33.2 (32.0-36.0) g/dL RDW Std Deviation 48.0 H (36.4-46.3) fL RDW Coeff of Jocelyn 14.0 (11.5-14.5) % Plt Count 207 (130-400) K/uL MPV 10.6 (9.4-12.4) fL Immature Gran % (Auto) 0.4 % Neut % (Auto) 81.3 % Lymph % (Auto) 9.6 % [place] % (Auto) 6.9 % Eos % (Auto) 1.4 % Baso % (Auto) 0.4 % Neut # (Auto) 5.68 (1.40-6.50) K/uL Lymph # (Auto) 0.67 L (1.20-3.40) K/uL [place] # (Auto) 0.48 (0.11-0.59) K/uL Eos # (Auto) 0.10 (0.00-0.50) K/uL Baso # (Auto) 0.03 (0.00-0.20) K/uL Immature Gran # (Auto) 0.03 (0.01-0.20) K/uL PT Cancelled 11.4 INR Cancelled 1.1 APTT Cancelled 31 PTT Ratio Cancelled 1.1 Sodium 142 (136-145) mmol/L Potassium 3.9 (3.5-5.1) mmol/L Chloride 108 H (98-107) mmol/L Carbon Dioxide 29 (21-32) mmol/L Anion Gap 5 (3-11) BUN 25 H (6-23) mg/dl Creatinine 0.96 (0.6-1.4) mg/dl Est Cr Clr Drug Dosing 43.8 ml/min eGFR 75.55 BUN/Creatinine Ratio 26.0 H (10-20) Glucose 143 H (70-99(Fasting)) mg/dl Calcium 9.4 (8.6-10.3) mg/dl Magnesium 1.9 (1.7-2.4) mg/dl Total Bilirubin 0.5 (0.2-1.0) mg/dl AST 30 (13-39) U/L ALT 19 (7-52) U/L Alkaline Phosphatase 88 (34-104) U/L Troponin I High Sens 7.1 (0-20) pg/ml Total Protein 6.3 (6.0-8.3) gm/dl Albumin 3.7 (3.4-5.0) gm/dl Globulin 2.6 (2.5-4.0) gm/dl Albumin/Globulin Ratio 1.4 (0.9-2) Lipase 16 (11-82) U/L Blood Type O Positive Antibody Screen NEGATIVE Administered Medications Sodium Chloride (Nss) 1,000 mls @ 75 mls/hr IV .[id number] STA Stop: 05/24/25 14:04 Last Admin: 05/24/25 01:17 Dose: 75 mls/hr Documented By: LUIZ Discontinued Medications Pantoprazole Sodium 80 mg/ (Dextrose) 120 mls @ 480 mls/hr IV ONE STA Stop: 05/24/25 00:55 Last Infusion: 05/24/25 02:22 Dose: Infused Documented By: Admin: 05/24/25 01:18 Dose: 480 mls/hr Documented By: LUIZ Discharge Plan Visit Data Chief Complaint: GI Bleed Stated Complaint: Tarry Stool, Lower Back Pain ED Provider: Vaishnavi Castro Discharge Problem: GI bleed Patient Disposition: Admitted As Inpatient Condition: Serious Discharge Instructions Interventions: ED Discharge Assessment Last Done: 05/24/25 02:25
[2025-05-23 23:55] LABS: Alanine Aminotransferase 19.0 U/L (7-52); Albumin Globulin Ratio 1.4 (0.9-2); Albumin Level 3.7 gm/dl (3.4-5.0); Alkaline Phosphatase 88.0 U/L (34-104); Anion Gap 5.0 (3-11); Bilirubin,Total 0.5 mg/dl (0.2-1.0); Blood Urea Nitrogen 25.0 mg/dl (6-23); Calcium 9.4 mg/dl (8.6-10.3); Carbon Dioxide 29.0 mmol/L (21-32); Chloride 108.0 mmol/L (98-107); Creatinine Clr Calc Pharmacy 43.8 ml/min; Globulin 2.6 gm/dl (2.5-4.0); Glucose 143.0 mg/dl (70-99(Fasting)); Potassium 3.9 mmol/L (3.5-5.1); Sodium 142.0 mmol/L (136-145); Total Protein 6.3 gm/dl (6.0-8.3)
[2025-05-24 00:41] LABS: INR 1.1 (0.9-1.1); Partial Thromboplastin Time 31 Seconds (21-31); Prothrombin Time 11.4 Seconds (9.0-12.0)
--- NOTE | 2025-05-24 00:51 | History & Physical Report ---
Date of Service May 24, 2025 Assessment & Plan (1) GI bleed: Plan: Assessment and plan below following discussion of case with ED provider and reviewing patient history/pertinent normal/abnormal diagnostic test results. GI bleed Painless UGIB/LGIB combo, history gastritis/duodenitis/diverticulosis on endoscopy last year Patient currently hemodynamically stable although BP on the lower side Chronic anemia, hemoglobin at baseline valvular heart disease (trace MR/TR) COPD, not in acute exacerbation pulmonary nodule, possible malignancy, patient refused workup as per last outpatient [facility] pulmonology visit from 2020 Hyperglycemia rule out DM dementia as per family past tobacco/alcohol abuse OBS Admit to medical telemetry IV PPI N.p.o. for now Follow H&H, transfuse PRBC if hemoglobin less than 7 and or for symptomatic anemia GI consult if with H&H drop Check hemoglobin A1c DVT prophylaxis SCDs Re: GI bleed Full code Patient son requesting update providers. Mr. Dieudonne Melo, contact #[phone]. Text document was generated using [employer] voice recognition software. It may contain grammatical or spelling errors. Kindly contact undersigned for clarification of any documentation item in question. History of Present Illness Chief Complaint: I do not know as per patient GI bleed as per personal care facility staff [facility] History obtained from patient, family, and records. Limited history from patient secondary to dementia. Medical history significant for HTN, valvular heart disease (trace MR/TR), COPD, pulmonary nodule, hypertension, gastritis/duodenitis/diverticulosis, pancreatitis, BPH, chronic anemia (baseline hemoglobin of 12), dementia as per family, past tobacco/alcohol abuse as per records. Last confinement December 2024 for rectal bleeding suspected to be diverticular in nature given extensive colonic diverticulosis on imaging. Patient evaluated at [facility] ER 2 days ago as per son due to some arm swelling. Patient noted to have black tarry followed by bloody stool at personal care facility yesterday. Patient denies abdominal pain. Usual back pain complaint. Patient brought to ER for evaluation. 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 Allergies Allergy/AdvReac Type Severity Reaction Status Date / Time meloxicam Allergy Mild RASH Verified 12/17/24 13:46 hydrochlorothiazide AdvReac Severe PANCREATITI Verified 12/17/24 13:46 S morphine AdvReac Severe convulsions Verified 12/17/24 13:46 gabapentin AdvReac Intermediate Fainting Verified 12/17/24 13:46 Home Medications Medication Instructions Recorded Confirmed Type tamsulosin 0.4 mg capsule (Flomax) 0.8 mg PO HS 11/11/18 05/24/25 History cholecalciferol (vitamin D3) 50 50 mcg PO QAM 04/24/21 05/24/25 History mcg (2,000 unit) capsule (Vitamin D3) acetaminophen 325 mg tablet 650 mg PO Q6H PRN TEMP>100 05/13/23 05/24/25 History (Tylenol) acetaminophen 500 mg tablet 1,000 mg PO BID 05/13/23 05/24/25 History polyethylene glycol 3350 17 gram 17 g PO QAM PRN Constipation 05/13/23 05/24/25 History oral powder packet (Miralax) Prevagen 1 tab PO DAILY 07/04/24 05/24/25 History latanoprost 0.005 % eye drops 1 drp OPB HS 07/04/24 05/24/25 History acetaminophen 325 mg tablet 650 mg PO Q6 PRN Pain 01/01/25 05/24/25 History ferrous sulfate 325 mg (65 mg 325 mg PO QAM 01/01/25 05/24/25 History iron) tablet pantoprazole 40 mg tablet,delayed 40 mg PO QAM gastric erosions 01/01/25 05/24/25 History release (Protonix) cyanocobalamin (vitamin B-12) 1,000 mcg PO DAILY 05/24/25 05/24/25 History 1,000 mcg tablet (Vitamin B-12) loperamide 2 mg capsule 2 mg PO QAM 05/24/25 05/24/25 History Past Med/Surg History Problem List (Updated 05/24/25 @ 03:01 by Vaishnavi Castro DO) GI bleed (Acute) GI bleed (Acute) SunDown syndrome Diverticulitis of colon with hemorrhage Rectal bleeding (Acute) Alcohol abuse Fall (Acute) Closed fracture of left hip (Acute) Confusion (Acute) Weakness (Acute) Leukocytosis (Acute) Acute UTI (urinary tract infection) (Acute) Fall (Acute) CHI (closed head injury) (Acute) Bronchitis Hypoxia (Acute) Weakness (Acute) Sinusitis (Acute) Skin tear of right upper extremity (Acute) Contusion of knee, right (Acute) Contusion of knee, left (Acute) Contusion of nose (Acute) Laceration of face (Acute) Laceration of scalp (Acute) Fall (Acute) CHI (closed head injury) (Acute) Non-traumatic rhabdomyolysis Lung nodule YULISSA (acute kidney injury) (Acute) Dehydration (Acute) Rhabdomyolysis (Acute) Skin tear of left hand without complication (Acute) Fall (Acute) Hypertension Acute head injury Heavy alcohol use Abnormal LFTs Lumbar spinal stenosis DVT prophylaxis Acute pancreatitis (Acute) Abnormal LFTs (Acute) UTI (urinary tract infection) (Acute) Injury of leg, right (Acute) 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 Esophagitis Choledocholithiasis (Acute) Diverticulitis Diverticulosis (Acute) Lower gastrointestinal hemorrhage (Acute) Acute blood loss anemia Anemia (Acute) History of colon polyps Gastric erosions Anemia (Acute) Centrilobular emphysema Left hip pain DDD (degenerative disc disease) BPH (benign prostatic hyperplasia) Medical History Abnormal urinalysis Aortic valve sclerosis Bladder stones History of colon polyps History of COVID-19 Hearing deficit Acute pancreatitis Osteoarthritis Spinal stenosis History of hypertension Mandibular fracture Surgical History History of ERCP (~11/30/20) History of esophagogastroduodenoscopy (EGD) History of colonoscopy Previous back surgery History of tonsillectomy and adenoidectomy Hx of toe surgery Hx of tonsillectomy Hx of hernia repair History of carpal tunnel surgery History of appendectomy Family History Mother Liver cancer Social History Smoking Status: Unknown if ever smoked Tobacco Type: Cigarettes Second Hand Exposure: No; Do You Dip or Chew Tobacco: No; Preferred Language: Kyrgyz Communication Ability: Effective Communication Ability Comment: can communicate, but not always express needs d/t confusion Visual Impairment: No Limitations Senior Sales Assistant Required: No Beliefs That Will Affect Care: None marital status: Current Living Situation: Long Term Current Living Situation Comment: Lives at [facility] w/ Ibeth Feels Safe at Home: Yes Safety Concerns: Feels Safe At This Time Assistive Devices: Hospital Bed Review of Systems Review of Systems: Could not be reliably obtained secondary to dementia Physical Exam Physical Exam: GENERAL: Demented, comfortable, underweight, no respiratory distress SKIN: Pallor, warm HEENT: Pale palpebral conjunctivae, no ptosis, dry buccal mucosa NECK : Supple, no tenderness CHEST : Decreased breath sounds, no tenderness HEART : RRR, no obvious murmurs ABDOMEN: no distention, nontender EXTREMITIES : No LE swelling/tenderness, no other conspicuous deformities noted NEUROLOGIC : Demented, no facial asymmetry, mild hearing impairment, gait and stance not assessed Results & Data Results & Data Vital Signs (Past 12 Hours) Vital Signs Temp Pulse Pulse Resp BP BP Pulse Ox 05/24/25 00:00 80 18 108/63 92 05/23/25 23:19 96 05/23/25 22:19 74 05/23/25 22:07 36.6 C 84 20 124/65 95 05/23/25 22:07 36.6 C 81 20 124/65 95 O2 Del Method 05/24/25 00:00 Room Air 05/23/25 23:19 Room Air 05/23/25 22:19 05/23/25 22:07 Room Air 05/23/25 22:07 Room Air Laboratory Results Laboratory Results WBC 6.99 K/ul (4.8-10.8) 05/23/25 22:30 RBC 3.85 M/uL (4.70-6.10) L 05/23/25 22:30 Hgb 12.1 g/dL (14.0-18.0) L 05/23/25 22:30 Hct 36.5 % (42.0-52.0) L 05/23/25 22:30 MCV 94.8 fL (80.0-100.0) 05/23/25 22:30 MCH 31.4 pg (25.0-34.0) 05/23/25 22:30 MCHC 33.2 g/dL (32.0-36.0) 05/23/25 22: RDW Std Deviation 48.0 fL (36.4-46.3) H 05/23/25: RDW Coeff of Jocelyn 14.0 % (11.5-14.5) 05/23/25 22: Plt Count 207 K/uL (130-400) 05/23/25 22: MPV 10.6 fL (9.4-12.4) 05/23/25 22: Immature Gran % (Auto) 0.4 % 05/23/25 22: Neut % (Auto) 81.3 % 05/23/25: Lymph % (Auto) 9.6 % 05/23/25: Branch % (Auto) 6.9 % 05/23/25: Eos % (Auto) 1.4 % 05/23/25: Baso % (Auto) 0.4 % 05/23/25 22:30 Neut # (Auto) 5.68 K/uL (1.40-6.50) 05/23/25 22:30 Lymph # (Auto) 0.67 K/uL (1.20-3.40) L 05/23/25 22:30 Branch # (Auto) 0.48 K/uL (0.11-0.59) 05/23/25 22:30 Eos # (Auto) 0.10 K/uL (0.00-0.50) 05/23/25 22: Baso # (Auto) 0.03 K/uL (0.00-0.20) 05/23/25 22:30 Immature Gran # (Auto) 0.03 K/uL (0.01-0.20) 05/23/25 22:30 PT 11.4 Seconds (9.0-12.0) 05/23/25 23:46 INR 1.1 (0.9-1.1) 05/23/25 23:46 APTT 31 Seconds (21-31) 05/23/25 23:46 PTT Ratio 1.1 05/23/25 23:46 Sodium 142 mmol/L (136-145) 05/23/25 22:30 Potassium 3.9 mmol/L (3.5-5.1) 05/23/25 22:30 Chloride 108 mmol/L (98-107) H 05/23/25 22:30 Carbon Dioxide 29 mmol/L (21-32) 05/23/25 22:30 Anion Gap 5 (3-11) 05/23/25 22:30 BUN 25 mg/dl (6-23) H 05/23/25 22:30 Creatinine 0.96 mg/dl (0.6-1.4) 05/23/25 22: Est Cr Clr Drug Dosing 43.8 ml/min 05/23/25 22:30 eGFR 75.55 05/23/25 22: BUN/Creatinine Ratio 26.0 (10-20) H 05/23/25 22: Glucose 143 mg/dl (70-99(Fasting)) H 05/23/25 22:30 Calcium 9.4 mg/dl (8.6-10.3) 05/23/25 22: Total Bilirubin 0.5 mg/dl (0.2-1.0) 05/23/25 22:30 AST 30 U/L (13-39) 05/23/25 22:30 ALT 19 U/L (7-52) 05/23/25 22:30 Alkaline Phosphatase 88 U/L (34-104) 05/23/25 22: Troponin I High Sens 7.1 pg/ml (0-20) 05/23/25 22:30 Total Protein 6.3 gm/dl (6.0-8.3) 05/23/25 22: Albumin 3.7 gm/dl (3.4-5.0) 05/23/25 22: Globulin 2.6 gm/dl (2.5-4.0) 05/23/25 22:30 Albumin/Globulin Ratio 1.4 (0.9-2) 05/23/25 22:30 Diagnostic Findings EKG as per my interpretation :Rate 65, NSR, LAD, LAFB, RBBB, T wave abnormalities inferior leads
[2025-05-24] MEDS: SODIUM CHLORIDE 0.9% 1,000 ML IV STA (01:17)
[2025-05-24 01:22] LABS: Lipase 16.0 U/L (11-82); Magnesium 1.9 mg/dl (1.7-2.4)
[2025-05-24] MEDS ORDERED: POLYETHYLENE (MIRALAX) 17 GM PACK PO PRN (02:47)
[2025-05-24 04:33] LABS: Hematocrit (blood only) 32.3 % (42.0-52.0); Hemoglobin 11.0 g/dL (14.0-18.0); Immature Granulocytes # (auto) 0.02 K/uL (0.01-0.20); Immature Granulocytes % (auto) 0.3 %; Mean Corpuscular Hemoglobin 31.8 pg (25.0-34.0); Mean Corpuscular Volume 93.4 fL (80.0-100.0); Platelet Count 184 K/uL (130-400); RDW Standard Deviation 47.7 fL (36.4-46.3); Red Blood Count 3.46 M/uL (4.70-6.10); White Blood Count 6.26 K/ul (4.8-10.8)
[2025-05-24 04:52] LABS: Anion Gap 4.0 (3-11); Blood Urea Nitrogen 24.0 mg/dl (6-23); Calcium 9.0 mg/dl (8.6-10.3); Carbon Dioxide 29.0 mmol/L (21-32); Chloride 109.0 mmol/L (98-107); Creatinine Clr Calc Pharmacy 62.8 ml/min; Glucose 101.0 mg/dl (70-99(Fasting)); Potassium 3.9 mmol/L (3.5-5.1); Sodium 142.0 mmol/L (136-145)
[2025-05-24 07:21] LABS: Hemoglobin A1C 5.2 % (4.5-5.6)
[2025-05-24] MEDS ORDERED: PANTOPRAZOLE BOLUS/DRIP IV STA (10:04)
[2025-05-24] MEDS: ACETAMINOPHEN 500 MG TAB PO SCH (10:33)
[2025-05-24] MEDS: FERROUS SULFATE 325 MG TAB PO SCH (10:34)
[2025-05-24] MEDS: CHOLECALCIFEROL 25 MCG (1000 UNITS) TAB PO SCH (10:34)
[2025-05-24] MEDS: CYANOCOBALAMIN (B-12) 500 MCG TABLET PO SCH (10:34)
[2025-05-24] MEDS: PANTOprazole 40 MG/10 ML SYR IV SCH (10:38)
[2025-05-24] MEDS: PANTOprazole 40 MG in DEXTROSE 5% MINI-B 100 ML IV SCH (10:55)
[2025-05-24 13:00] LABS: Hematocrit (blood only) 28.1 % (42.0-52.0); Hemoglobin 9.8 g/dL (14.0-18.0)
--- NOTE | 2025-05-24 13:19 | Gastrointestinal Consultation ---
Date of Consultation May 24, 2025 Assessment & Plan (1) Rectal bleeding: Suspicious for diverticular bleeding based on history. -CTA abd/pelvis for further assessment -Continue to monitor H/H Supervising Physician Co-Signing Physician Notes I personally saw and examined the patient. I have reviewed the chart and agree with the documentation provided by the CHURCH SUPERVISOR including discussion about the assessment, treatment and plan. Briefly, 89 yo with HTN, valvular heart disease (trace MR/TR), COPD, pulmonary nodule, hypertension, gastritis/duodenitis/diverticulosis, pancreatitis, BPH, chronic anemia (baseline hemoglobin of 12), dementia as per family, past tobacco/alcohol abuse who presented to the ED from his intermediate due to rectal bleeding. Patient has been hospitalized with rectal bleeding previously. He has been felt to have diverticular bleeding during previous admissions. H/H currently 9.8/28.1. No CT imaging performed during this admission. Charted bright red blood and dark red blood during this hospital encounter. He has had EGD & colonoscopy for the same indication. In 06/2024 he had an EGD that showed gastritis and duodenitis. In 06/2024 he also had a colonoscopy that indicated diverticulosis This appears to be a diverticular bleed that hopefully has stopped. I would get a CTA to make sure he does not have any active bleeding given his age and comorbidities. His creatinine and renal function are fine. In the meantime supportive care and advance diet slowly. He can have liquids as he wakes up. There is really no role for repeat endoscopy or colonoscopy given his comorbidities, past colonoscopy in 2023 and his current symptoms. Supportive care History of Present Illness Reason for Consultation: GI bleeding Attending Physician: Sb Ceblalos MD History of Present Illness Patient is an 89 yo with HTN, valvular heart disease (trace MR/TR), COPD, pulmonary nodule, hypertension, gastritis/duodenitis/diverticulosis, pancreatitis, BPH, chronic anemia (baseline hemoglobin of 12), dementia as per family, past tobacco/alcohol abuse who presented to the ED from his intermediate due to rectal bleeding. Patient has been hospitalized with rectal bleeding previously. He has been felt to have diverticular bleeding during previous admissions. H/H currently 9.8/28.1. No CT imaging performed during this admission. Charted bright red blood and dark red blood during this hospital encounter. He has had EGD & colonoscopy for the same indication. In 06/2024 he had an EGD that showed gastritis and duodenitis. In 06/2024 he also had a colonoscopy that indicated diverticulosis. BUN 24, Cr 0.67. He takes Protonix at home. No significant abdominal pain. Family at bedside to provide additional history. Allergies Allergy/AdvReac Type Severity Reaction Status Date / Time meloxicam Allergy Mild RASH Verified 12/17/24 13:46 hydrochlorothiazide AdvReac Severe PANCREATITI Verified 12/17/24 13:46 S morphine AdvReac Severe convulsions Verified 12/17/24 13:46 gabapentin AdvReac Intermediate Fainting Verified 12/17/24 13:46 Home Medications Medication Instructions Recorded Confirmed Type tamsulosin 0.4 mg capsule (Flomax) 0.8 mg PO HS 11/11/18 05/24/25 History cholecalciferol (vitamin D3) 50 50 mcg PO QAM 04/24/21 05/24/25 History mcg (2,000 unit) capsule (Vitamin D3) acetaminophen 325 mg tablet 650 mg PO Q6H PRN TEMP>100 05/13/23 05/24/25 History (Tylenol) acetaminophen 500 mg tablet 1,000 mg PO BID 05/13/23 05/24/25 History polyethylene glycol 3350 17 gram 17 g PO QAM PRN Constipation 05/13/23 05/24/25 History oral powder packet (Miralax) Prevagen 1 tab PO DAILY 07/04/24 05/24/25 History latanoprost 0.005 % eye drops 1 drp OPB HS 07/04/24 05/24/25 History acetaminophen 325 mg tablet 650 mg PO Q6 PRN Pain 01/01/25 05/24/25 History ferrous sulfate 325 mg (65 mg 325 mg PO QAM 01/01/25 05/24/25 History iron) tablet pantoprazole 40 mg tablet,delayed 40 mg PO QAM gastric erosions 01/01/25 05/24/25 History release (Protonix) cyanocobalamin (vitamin B-12) 1,000 mcg PO DAILY 05/24/25 05/24/25 History 1,000 mcg tablet (Vitamin B-12) loperamide 2 mg capsule 2 mg PO QAM 05/24/25 05/24/25 History Patient History Medical History Abnormal urinalysis Aortic valve sclerosis Bladder stones History of colon polyps History of COVID-19 Hearing deficit Acute pancreatitis Osteoarthritis Spinal stenosis History of hypertension Mandibular fracture Surgical History History of ERCP (~11/30/20) History of esophagogastroduodenoscopy (EGD) History of colonoscopy Previous back surgery History of tonsillectomy and adenoidectomy Hx of toe surgery Hx of tonsillectomy Hx of hernia repair History of carpal tunnel surgery History of appendectomy Family History Mother Liver cancer Social History Smoking Status: Unknown if ever smoked Tobacco Type: Cigarettes Second Hand Exposure: No; Do You Dip or Chew Tobacco: No; Preferred Language: Nepali Communication Ability: Effective Communication Ability Comment: can communicate, but not always express needs d/t confusion Visual Impairment: No Limitations Nutritional Services Host Required: No Beliefs That Will Affect Care: None marital status: Current Living Situation: Assisted Current Living Situation Comment: Lives at [facility] w/ Ibeth Feels Safe at Home: Yes Safety Concerns: Feels Safe At This Time Assistive Devices: Hospital Bed Review of Systems Review of Systems: History limited due to dementia but denies pain Gastrointestinal: + blood in stools; no abdominal pain Physical Exam Constitutional: well developed Respiratory: normal respiratory effort Gastrointestinal (Abdomen): normal bowel sounds, soft, nontender, no hepatosplenomegaly Results & Data Vital Signs (Past 12 Hours) Vital Signs Temp Pulse Pulse Resp BP BP Pulse Ox 05/24/25 11:36 36.5 C 72 18 107/67 95 05/24/25 07:43 36.6 C 72 18 126/70 94 05/24/25 07:25 73 05/24/25 03:10 05/24/25 03:10 36.4 C 75 16 134/74 93 05/24/25 03:05 68 05/24/25 02:25 62 16 111/65 97 05/24/25 02:00 62 16 111/65 98 O2 Del Method 05/24/25 11:36 Room Air 05/24/25 07:43 Room Air 05/24/25 07:25 05/24/25 03:10 Room Air 05/24/25 03:10 Room Air 05/24/25 03:05 05/24/25 02:25 Room Air 05/24/25 02:00 Room Air PG Care Time/CCT Total # of Minutes Spent Total Time Spent with Patient: Total time spent is greater than 50% in coordination of care (as documented) at patient's floor/unit and/or counseling patient: Coding Level of Care Code 78648 INT INP/OBS CARE 3/75MIN Diagnoses Rectal bleeding K62.5
--- NOTE | 2025-05-24 14:05 | Hospitalist Progress Note ---
Date of Service May 24, 2025 Assessment & Plan (1) GI bleed: Plan: per admitting hospitalist notes with addendum: Assessment and plan below following discussion of case with ED provider and reviewing patient history/pertinent normal/abnormal diagnostic test results. GI bleed Painless UGIB/LGIB combo, history gastritis/duodenitis/diverticulosis on endoscopy last year -- Hg 12--> 11--> 9.8 start Protonix drip -- GI consulted Acute on Chronic anemia -- monitor Hg valvular heart disease (trace MR/TR) COPD, not in acute exacerbation pulmonary nodule, possible malignancy, patient refused workup as per last outpatient [facility] pulmonology visit from 2020 Hyperglycemia rule out DM : 5.2 dementia as per family past tobacco/alcohol abuse N.p.o. for now Follow H&H, transfuse PRBC if hemoglobin less than 7 and or for symptomatic anemia DVT prophylaxis SCDs Re: GI bleed Full code Admission and Anticipated Discharge Date Admission Date: May 24, 2025 Subjective seen resting in bed, not in distress mostly oriented reports back pain- chronic but significant today denies leg weakness, numbness denies abdominal pain, nausea (+) 1 episode of dark/bloody stool this AM per RN denies fever/chills no chest pain, dyspnea, palpitations, dizziness no other symptoms Review of Systems Review of Systems: all noted and negative except for above Physical Exam Physical Exam: General- oriented x 2, not in distress, speaks in sentences with no effort or accessory muscle use Eyes- anicteric Neck- no JVD Lungs- clear breath sounds bilaterally, no rales/wheezes Heart- normal rate, regular rhythm; no murmurs Abdomen- normal bowel sounds, nondistended, soft, no tenderness Extremities- no pretibial edema, no calf tenderness Neuro- alert, oriented x 3; no gross focal neurologic deficits Skin- warm & dry Results & Data Results & Data Vital Signs (Past 12 Hours) Vital Signs Temp Pulse Pulse Resp BP BP Pulse Ox 05/24/25 11:36 36.5 C 72 18 107/67 95 05/24/25 07:43 36.6 C 72 18 126/70 94 05/24/25 07:25 73 05/24/25 03:10 05/24/25 03:10 36.4 C 75 16 134/74 93 05/24/25 03:05 68 05/24/25 02:25 62 16 111/65 97 05/24/25 02:00 62 16 111/65 98 O2 Del Method 05/24/25 11:36 Room Air 05/24/25 07:43 Room Air 05/24/25 07:25 05/24/25 03:10 Room Air 05/24/25 03:10 Room Air 05/24/25 03:05 05/24/25 02:25 Room Air 05/24/25 02:00 Room Air all noted and reviewed including below
[2025-05-24] MEDS: OPTIRAY 320 125ml IV ONE (15:17)
--- NOTE | 2025-05-24 15:52 | CT Scan Report ---
CT angio abd pelvis wo/w con HISTORY: 89 years-old Male Rectal bleeding acute rectal bleeding COMPARISON: CT abdomen and pelvis 12/18/2024 CTA chest 05/13/2023. TECHNIQUE: CTA abdomen and pelvis was obtained with and without IV contrast. 3-D coronal and sagittal MIPS were obtained and transmitted for review. All measurements were obtained according to NASCET cr iteria. A dose lowering technique was used consistent with the principals of AKASH. FINDINGS: CTA: Heart is upper limits of normal in size with coronary artery calcifications. There is atheroscle rosis and tortuosity of the descending thoracic aorta. There is patency of the celiac trunk, superior and inferior mesenteric arteries. Atherosclerosis causes mild stenosis of the patent renal arteries. Dilation of the right common iliac artery measures up to 1.6 cm transversely. No dissection, or talita rial occlusion identified. Small subcentimeter focus of intraluminal contrast/probable active bleedin g within the anorectal junction, image [address] ABDOMEN AND PELVIS: 1.7 cm right lower lobe nodule contains a calcification. This is partially antonio ged. This nodule has mildly increased in size since CT of May 13, 2023 and appears stable from 04/2025. No pneumatosis, free air or portal venous gas is present. The gallbladder is surgically absent. Pneum obilia is again noted. There are no suspicious hepatic lesions. A small lateral segment hepatic cyst is unchanged. Spleen, adrenal glands, kidneys and pancreas are unremarkable. There is mild bilateral renal cortical thinning. There is no hydronephrosis. Prostatomegaly. Urinary bladder wall thickening suggestive of chronic outlet obstruction. There is no evidence for a bowel obstruction. Note is made of extensive colonic diverticulosis without evidence for acute diverticulitis. There is no bowel wall thickening.There is no lymphadenopathy. There are no fluid collections. Images of the pelvis are deg raded by streak artifact from a left hip arthroplasty. Chronic L1 compression deformity. Lumbar levos coliosis. IMPRESSION: 1. Small focus of contrast in the dependent anorectal junction compatible with active acute GI bleed. The pelvic structures are suboptimally evaluated secondary to streak artifact from left hip arthropl asty. 2. Extensive colonic diverticulosis without CT evidence of acute diverticulitis. 3. No bowel obstruction. 4. Partially imaged 1.7 cm right lower lobe pulmonary nodule appears unchanged from 12/18/2024. ACT 112: Negative or not required by law. The above report was generated using voice recognition software. It may contain grammatical, syntax o r spelling errors. Electronically signed by: Roldan Gore M.D. 05/24/2025 3:50 PM
[2025-05-24 16:07] LABS: Hematocrit (blood only) 27.4 % (42.0-52.0); Hemoglobin 9.5 g/dL (14.0-18.0)
[2025-05-24] MEDS: D5W AND NSS 1,000 ML IV SCH (17:24)
[2025-05-24] MEDS: TAMSULOSIN HCL 0.4 MG CAP PO SCH (19:36)
[2025-05-24] MEDS: LATANOPROST 0.005% OP SOLN 2.5 ML BTL OPB SCH (19:37)
[2025-05-24 21:37] LABS: Hematocrit (blood only) 28.7 % (42.0-52.0); Hemoglobin 10.0 g/dL (14.0-18.0)
[2025-05-25] MEDS: ACETAMINOPHEN 325 MG TAB PO PRN (01:13)
[2025-05-25 07:06] LABS: Hematocrit (blood only) 25.2 % (42.0-52.0); Hemoglobin 8.7 g/dL (14.0-18.0); Immature Granulocytes # (auto) 0.02 K/uL (0.01-0.20); Immature Granulocytes % (auto) 0.3 %; Mean Corpuscular Hemoglobin 32.3 pg (25.0-34.0); Mean Corpuscular Volume 93.7 fL (80.0-100.0); Platelet Count 167 K/uL (130-400); RDW Standard Deviation 48.0 fL (36.4-46.3); Red Blood Count 2.69 M/uL (4.70-6.10); White Blood Count 6.45 K/ul (4.8-10.8)
[2025-05-25 08:01] LABS: Anion Gap 4.0 (3-11); Blood Urea Nitrogen 23.0 mg/dl (6-23); Calcium 8.6 mg/dl (8.6-10.3); Carbon Dioxide 26.0 mmol/L (21-32); Chloride 111.0 mmol/L (98-107); Creatinine Clr Calc Pharmacy 78.6 ml/min; Glucose 103.0 mg/dl (70-99(Fasting)); Magnesium 1.9 mg/dl (1.7-2.4); Potassium 3.5 mmol/L (3.5-5.1); Sodium 141.0 mmol/L (136-145)
--- NOTE | 2025-05-25 08:04 | Electrocardiogram Report ---
Test Reason : Blood Pressure : */* mmHG Vent. Rate : 67 BPM Atrial Rate : 67 BPM P-R Int : 162 ms QRS Dur : 132 ms QT Int : 442 ms P-R-T Axes : 13 -44 16 degrees QTcB Int : 467 ms Sinus rhythm with Premature ventricular complexes Left axis deviation Right bundle branch block Abnormal ECG When compared with ECG of 01-Jan-2025 11:27, Premature ventricular complexes are now Present Inverted T waves have replaced nonspecific T wave abnormality in Anterior leads Confirmed by Marino Montes ([id number]) on 05/25/2025 8:03:48 AM Referred By: [facility] Confirmed By: Marino Montes
[2025-05-25 12:08] LABS: Hematocrit (blood only) 26.2 % (42.0-52.0); Hemoglobin 8.8 g/dL (14.0-18.0)
--- NOTE | 2025-05-25 12:12 | Gastroenterology Progress Note ---
Date of Service May 25, 2025 Assessment & Plan (1) GI bleed: Plan: GI bleeding probably diverticular. He does have a history of prolonged bleeding in the past though with 4 to 5 days. Mark White with another for 5 days at [facility] after bleeding episode last year. He does have evidence of some ongoing bleeding with slow drop in his H&H. Though I do not plan on endoscopy at this time I recommend continued observation as diverticular bleeding mostly will stop I think it be prudent to give him GoLytely preparation today in the event that we had to intervene. A lamp cleaner colon good prep with dramatically changed the likelihood of finding a bleeding source and potentially allow intervention. Transfuse as needed. 4 L of GoLytely.. Clear liquid diet Discussed with patient's daughter by phone (2) Diverticulitis of colon with hemorrhage: (3) SunDown syndrome: Admission and Anticipated Discharge Date Admission Date: May 24, 2025 Subjective Gastrointestinal bleeding Admitted with hematochezia. Previously investigated for similar episode back in 2019 for this included at that time an EGD and colonoscopy. Because of continued bleeding he was transferred to [facility] and his daughter Jeanna believes he had further studies there though no bleeding source identified. By default diagnosed as diverticular. Admitted yesterday with recurrent bleeding. Counts have gone from 11 down to 8.7. Reviewed with nursing staff he had 2 dark stools today with some red blood. His daughter Jeanna states that occasionally the stools are dark though can become red. Dark usually means either proximal colon or upper GI small bowel or stomach. EGD negative in the past. Do note that iron listed on his outpatient medications which may account for the dark stool there was not a significant elevated BUN to creatinine on admission. Patient is n.p.o. at present. At this point I think a repeat EGd colonoscopy will probably have a similar outcomes to his previous studies. However the main event of persistent or worsening bleeding we could reconsider endoscopy at that time. I did review with nursing and patient's daughter that GoLytely prep just in case would be beneficial more likely to find a bleeding source if the colon is clean in the event that we were forced to do endoscopy. They do seem to be interested in further studies if potential helpful. Review of Systems Review of Systems: Denies abdominal pain. History of dementia though he was orientated to person place and president Physical Exam Physical Exam: Frail 89-year-old gentleman. Sleeping arouses to voice. Little hard of hearing. Abdomen benign Results & Data Results & Data Vital Signs (Past 12 Hours) Vital Signs Temp Pulse Pulse Resp BP Pulse Ox O2 Del Method 05/25/25 11:38 36.4 C L 67 20 106/58 L 91 Room Air 05/25/25 08:14 36.4 C L 60 20 100/51 L 93 Room Air 05/25/25 07:13 65 05/25/25 04:01 36.8 C 78 20 105/57 L 92 Room Air 05/25/25 00:55 36.3 C L 64 18 107/57 L 92 Room Air PG Care Time/CCT Total # of Minutes Spent Total Time Spent with Patient: Total time spent is greater than 50% in coordination of care (as documented) at patient's floor/unit and/or counseling patient: Coding Level of Care Code 32327 SUB INP/OBS CARE 08/04MIN Diagnoses GI bleed K92.2 Diverticulitis of colon with hemorrhage K57.33 SunDown syndrome F05
--- NOTE | 2025-05-25 12:55 | Hospitalist Progress Note ---
Date of Service May 25, 2025 Assessment & Plan (1) GI bleed: Plan: per admitting hospitalist notes with addendum: Assessment and plan below following discussion of case with ED provider and reviewing patient history/pertinent normal/abnormal diagnostic test results. GI bleed Painless UGIB/LGIB combo, history gastritis/duodenitis/diverticulosis on endoscopy last year -- Hg 12--> 11--> 9.8 start Protonix drip -- GI consulted: recommend supportive care in light of recent EGD and colonoscopy Bleeding likely secondary to diverticulosis 05/25 Hemoglobin remaining stable around 8.7, 8.8 Advance diet to clear liquids Continue gentle IV fluids Continue supportive care Acute on Chronic anemia -- monitor Hg -- check anemia panel tomorrow valvular heart disease (trace MR/TR) COPD, not in acute exacerbation pulmonary nodule, possible malignancy, patient refused workup as per last outpatient [facility] pulmonology visit from 2020 Hyperglycemia rule out DM : 5.2 dementia as per family past tobacco/alcohol abuse DVT prophylaxis SCDs Re: GI bleed Full code Disposition Admitted to [facility] telemetry Patient resides in [facility] Admission and Anticipated Discharge Date Admission Date: May 24, 2025 Subjective seen resting in bed, sleeping easily awakened Somewhat confused, asking where he is at the moment Easily redirectable States he feels fine overall No abdominal pain, Nausea or vomiting Had 1 bloody bowel movement this morning per RN, improving compared to yesterday No shortness of breath, chest pain, dizziness Back pain seems to be a little bit better than yesterday No other new symptoms Review of Systems Review of Systems: all noted and negative except for above Physical Exam Physical Exam: General- oriented x 1, not in distress, speaks in sentences with no effort or accessory muscle use Eyes- anicteric Neck- no JVD Lungs- clear breath sounds bilaterally Heart- normal rate, regular rhythm; no murmurs Abdomen- normal bowel sounds, nondistended, soft, nontender Extremities- no pretibial edema, no calf tenderness Neuro- alert, oriented x 3; no gross focal neurologic deficits Skin- warm & dry Results & Data Results & Data Vital Signs (Past 12 Hours) Vital Signs Temp Pulse Pulse Resp BP Pulse Ox O2 Del Method 05/25/25 11:38 36.4 C L 67 20 106/58 L 91 Room Air 05/25/25 08:14 36.4 C L 60 20 100/51 L 93 Room Air 05/25/25 07:13 65 05/25/25 04:01 36.8 C 78 20 105/57 L 92 Room Air all noted and reviewed including below
[2025-05-25] MEDS: LAVAGE SOLUTION 4000ML PO SCH (18:08)
[2025-05-26 07:26] LABS: Hematocrit (blood only) 23.1 % (42.0-52.0); Hemoglobin 8.0 g/dL (14.0-18.0); Immature Granulocytes # (auto) 0.03 K/uL (0.01-0.20); Immature Granulocytes % (auto) 0.5 %; Mean Corpuscular Hemoglobin 32.5 pg (25.0-34.0); Mean Corpuscular Volume 93.9 fL (80.0-100.0); Platelet Count 188 K/uL (130-400); RDW Standard Deviation 48.4 fL (36.4-46.3); Red Blood Count 2.46 M/uL (4.70-6.10); White Blood Count 5.88 K/ul (4.8-10.8)
[2025-05-26 08:00] LABS: Anion Gap 6.0 (3-11); Blood Urea Nitrogen 21.0 mg/dl (6-23); Calcium 8.6 mg/dl (8.6-10.3); Carbon Dioxide 26.0 mmol/L (21-32); Chloride 110.0 mmol/L (98-107); Creatinine Clr Calc Pharmacy 76.3 ml/min; Glucose 106.0 mg/dl (70-99(Fasting)); Magnesium 1.9 mg/dl (1.7-2.4); Potassium 3.2 mmol/L (3.5-5.1); Sodium 142.0 mmol/L (136-145)
[2025-05-26] MEDS: POTASSIUM CHLORIDE 20 MEQ/15 ML UDC PO STA (10:31)
[2025-05-26 11:07] LABS: Hematocrit (blood only) 23.5 % (42.0-52.0); Hemoglobin 7.8 g/dL (14.0-18.0); Immature Granulocytes # (auto) 0.01 K/uL (0.01-0.20); Immature Granulocytes % (auto) 0.2 %; Mean Corpuscular Hemoglobin 31.3 pg (25.0-34.0); Mean Corpuscular Volume 94.4 fL (80.0-100.0); Platelet Count 164 K/uL (130-400); RDW Standard Deviation 49.1 fL (36.4-46.3); Red Blood Count 2.49 M/uL (4.70-6.10); White Blood Count 6.09 K/ul (4.8-10.8)
--- NOTE | 2025-05-26 11:11 | Gastroenterology Progress Note ---
Date of Service May 26, 2025 Assessment & Plan (1) Acute blood loss anemia: Plan: Recheck H&H likely require transfusion. (2) GI bleed: Plan: Clinically increasing bowel frequency and amount with falling H&H. Recheck CT at present. If negative consider nuclear medicine study in the morning. I think an unprepped colonoscopy will not be of benefit EGD in June for similar problems was negative for bleeding source. He also has a normal BUN/creatinine making EGD less probably to be beneficial. CTA, stat H&H, retry GoLytely preparation. (3) Aortic valve sclerosis: Admission and Anticipated Discharge Date Admission Date: May 24, 2025 Subjective GI bleed Asked by the hospital system to reassess this patient this a.m. Apparently increased bowel frequency overnight with dark stools. Nurses report a large bowel movement this morning black to red. Also note decreasing blood pressures. Hemoglobin falling. We had ordered a GoLytely preparation last evening for this eventuality though patient refused to drink it. This is similar to his previous presentation. He spent 5 days here and it was transferred to [facility] for 5 days.. had an EGD Colonoscopy in June for this problem. I reassessed today but he did not drink any GoLytely so I think a colonoscopy would not be helpful. EGD negative on previous visit, also has a normal BUN to creatinine making upper GI bleeding less likely. With what appears to be increasing in active hemorrhage will resend for repeat CTA today. If negative consider nuclear medicine study tomorrow. He has a normal BUN and creatinine make an upper GI bleeding source less likely. An unprepped colonoscopy unlikely to be helpful. Probable diverticular bleed. Recheck H&H now with transfusion likely required. Encourage patient to retry GoLytely. Review of Systems Review of Systems: Denies abdominal pain. Denies feeling weak dizzy any or anxious No chest pain or shortness of breath Physical Exam Physical Exam: Pale examined at the bedside. Actually is orientated. Regular heart rate in the 70s. Abdomen benign No tachypnea Results & Data Results & Data Vital Signs (Past 12 Hours) Vital Signs Temp Pulse Pulse Resp BP Pulse Ox O2 Del Method 05/26/25 10:05 Room Air 05/26/25 07:38 76 05/26/25 07:37 36.5 C 62 16 101/58 L 90 Room Air 05/26/25 03:18 36.8 C 60 20 105/54 L 92 Room Air 05/25/25 23:15 36.9 C 59 L 20 96/54 L 92 Room Air PG Care Time/CCT Total # of Minutes Spent Total Time Spent with Patient: Total time spent is greater than 50% in coordination of care (as documented) at patient's floor/unit and/or counseling patient: Coding Level of Care Code 77996 SUB INP/OBS CARE 2/35MIN Diagnoses Acute blood loss anemia D62 GI bleed K92.2 Aortic valve sclerosis I35.8
[2025-05-26 11:43] LABS: Polychromasia 1+
[2025-05-26] MEDS: OPTIRAY 320 125ml IV ONE (11:47)
--- NOTE | 2025-05-26 13:43 | CT Scan Report ---
CT ANGIOGRAM OF THE ABDOMEN AND PELVIS CLINICAL HISTORY: GI bleeding. COMPARISON STUDY: CT angiogram of the abdomen and pelvis dated 05/24/2025. TECHNIQUE: Following the IV administration of 120 cc of Optiray 320, CT angiogram of the abdomen and pelvis was performed from the lung bases the proximal femora. Images are reviewed in the axial, sagit jennifer, and coronal planes. 3-D MIPS images are created and assessed. IV contrast was administered witho ut complication. A dose lowering technique was utilized adhering to the principles of ALARA. There i s streak artifact from the arms which could not be elevated above the abdomen. CT DOSE: 1011.58 mGy.cm FINDINGS: Lower chest: The heart is enlarged and without pericardial effusion. The coronary arteries are densel y calcified. Emphysema is observed. There are small pleural effusions with dependent consolidation. A gain seen is a 1.9 cm spiculated nodule in the right lower lobe on image #22. This contains a calcifi cation as well as foci of cavitation. Liver: The contrast-enhanced liver is normal in size, contour, and attenuation. There is no intrahepa tic biliary ductal dilatation. Pneumobilia is again noted. Gallbladder: Surgically absent noting clips in the gallbladder fossa. Spleen: Normal in size and attenuation noting heterogeneous arterial phase enhancement. Pancreas: Unremarkable. Adrenal glands: Unremarkable. Kidneys: The contrast enhanced kidneys are normal in size and without hydronephrosis. The kidneys enh ance symmetrically. A subcentimeter cortical hypodensity in the interpolar right kidney likely repres ents a cyst but is too small for definitive characterization. There is mild stenosis at the origin of the smaller superiorly located accessory left renal artery seen on axial image #77. The main renal a rteries are patent bilaterally. Abdominal aorta and iliac arteries: There is advanced atherosclerotic calcification and ectasia of th e abdominal aorta. The abdominal aorta is widely patent. No dissection is seen. The iliac vessels are patent bilaterally noting advanced atherosclerotic plaque and irregularity. Major branches of the abdominal aorta: The celiac trunk, superior mesenteric, and inferior mesenteric arteries are widely patent. Hepatic arterial anatomy is conventional. The splenic artery is patent. There are 2 left renal arteries and a single right renal artery. Bowel: There is advanced clonic diverticulosis without CT evidence of acute diverticulitis. No bowel obstruction is seen. No intraluminal contrast is identified on today's examination to suggest a site of active GI bleeding. Duodenal diverticula are observed. The appendix is not visualized. Peritoneum: There is no intraperitoneal free air or abdominal ascites. There is a small fat-containin g umbilical hernia. Lymphadenopathy: None. Pelvic viscera: Evaluation of the pelvis is degraded by streak artifact from left hip arthroplasty. T he prostate gland is markedly enlarged and heterogeneous. The bladder wall appears thickened/trabecul ated indicating chronic outlet obstruction. Skeletal structures: The skeletal structures are osteopenic. There is advanced and the sacral spondyl osis and scoliosis. No lytic or blastic bony lesions are seen. 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 IMPRESSION: 1. Cardiomegaly and emphysema. 2. There is advanced atherosclerotic calcification of the abdominal aorta and its major branches. 3. No intraluminal contrast is identified to indicate a site of active GI bleeding on today's examina tion. The focus of intraluminal contrast seen at the anal rectal junction on 05/24/2025 is not apprec iated on today's examination. 4. Advanced colonic diverticulosis without CT evidence of acute diverticulitis. 5. A suspicious 1.9 cm right lower lobe pulmonary nodule is again noted. 6. There is mild stenosis at the origin of a small accessory left renal artery. 7. Additional findings as above. ACT 112: Negative or not required by law. Electronically signed by: Javid Mendoza M.D. 05/26/2025 1:42 PM
[2025-05-26 14:50] LABS: Appearance Urine Clear (Clear); Cast Urine Automated 0-2 /lpf (0-2); Epithelial Cell Urine Auto 0-2 /hpf (0-2); Glucose Urine UA Negative (Negative); WBC Urine Automated >50 /hpf (0-5)
[2025-05-26 15:00] LABS: Bacteria Urine Automated 2+ (None Seen)
[2025-05-26 15:01] LABS: RBC Urine Automated 0-2 /hpf (0-2)
--- NOTE | 2025-05-26 15:52 | Hospitalist Progress Note ---
Date of Service May 26, 2025 Assessment & Plan (1) GI bleed: Plan: per admitting hospitalist notes with addendum: Assessment and plan below following discussion of case with ED provider and reviewing patient history/pertinent normal/abnormal diagnostic test results. GI bleed Painless UGIB/LGIB combo, history gastritis/duodenitis/diverticulosis on endoscopy last year -- Hg 12--> 11--> 9.8 start Protonix drip -- GI consulted: recommend supportive care in light of recent EGD and colonoscopy Bleeding likely secondary to diverticulosis 05/25 Hemoglobin remaining stable around 8.7, 8.8 Advance diet to clear liquids Continue gentle IV fluids Continue supportive care 05/26 hemoglobin trended down to 8.0 Notified GI service-Dr. Barcenas Repeat CTA ordered, no signs of active GI bleeding repeat hemoglobin at 1700 Continue IV fluids, supportive care Acute on Chronic anemia -- monitor Hg -- check anemia panel valvular heart disease (trace MR/TR) COPD, not in acute exacerbation pulmonary nodule, possible malignancy, patient refused workup as per last [place] [facility] [place] Hyperglycemia rule out DM : 5.2 dementia as per family past tobacco/alcohol abuse DVT prophylaxis SCDs Re: GI bleed Full code Disposition Admitted to [facility] telemetry Patient resides in [facility] Admission and Anticipated Discharge Date Admission Date: May 24, 2025 Subjective discussed with production staff worker Patient had multiple episodes of melena yesterday Already had twice this morning Seen resting in bed, sleeping but easily awakened States he feels fine overall No abdominal pain No shortness of breath, chest pain No other symptoms Review of Systems Review of Systems: all noted and negative except for above Physical Exam Physical Exam: General- oriented x 1-2, not in distress, speaks in sentences with no effort or accessory muscle use Eyes- anicteric Neck- no JVD Lungs- clear BS BL Heart- normal rate, regular rhythm; no murmurs Abdomen- normal bowel sounds, nondistended, soft, no tenderness Extremities- no pretibial edema, no calf tenderness Neuro- alert, oriented x 1-2; no gross focal neurologic deficits Skin- warm & dry Results & Data Results & Data Vital Signs (Past 12 Hours) Vital Signs Temp Pulse Pulse Resp BP Pulse Ox O2 Del Method 05/26/25 15:38 36.6 C 59 L 16 113/49 L 92 Room Air 05/26/25 13:45 60 05/26/25 11:27 36.2 C L 57 L 16 113/62 95 Room Air 05/26/25 10:05 Room Air 05/26/25 07:38 76 05/26/25 07:37 36.5 C 62 16 101/58 L 90 Room Air all noted and reviewed including below
[2025-05-26 17:18] LABS: Hematocrit (blood only) 24.4 % (42.0-52.0); Hemoglobin 8.3 g/dL (14.0-18.0)
--- NOTE | 2025-05-26 20:41 | Communication Note ---
Date of Service: May 26, 2025 CTA negative, question bleeding distal rectum/ anorectal area on previous CT, could be hemorrhoidal diverticular. Potential nuclear med study vs flex sig, will reassess in AM
--- NOTE | 2025-05-27 05:58 | Communication Note ---
Date of Service: May 27, 2025 Patient noted to have small blood tinged BM overnight as per RN. No unusual abdominal pain.
[2025-05-27 06:48] LABS: Hematocrit (blood only) 22.0 % (42.0-52.0); Hemoglobin 7.5 g/dL (14.0-18.0); Immature Granulocytes # (auto) 0.02 K/uL (0.01-0.20); Immature Granulocytes % (auto) 0.4 %; Mean Corpuscular Hemoglobin 32.6 pg (25.0-34.0); Mean Corpuscular Volume 95.7 fL (80.0-100.0); Platelet Count 168 K/uL (130-400); RDW Standard Deviation 49.5 fL (36.4-46.3); Red Blood Count 2.30 M/uL (4.70-6.10); White Blood Count 4.89 K/ul (4.8-10.8)
[2025-05-27 07:09] LABS: Anion Gap 3.0 (3-11); Blood Urea Nitrogen 15.0 mg/dl (6-23); Calcium 8.4 mg/dl (8.6-10.3); Carbon Dioxide 26.0 mmol/L (21-32); Chloride 113.0 mmol/L (98-107); Creatinine Clr Calc Pharmacy 84.1 ml/min; Glucose 112.0 mg/dl (70-99(Fasting)); Magnesium 1.9 mg/dl (1.7-2.4); Potassium 3.5 mmol/L (3.5-5.1); Sodium 142.0 mmol/L (136-145)
[2025-05-27 07:10] LABS: RBC Morphology Unremarkable
--- NOTE | 2025-05-27 12:17 | Nuclear Medicine Report ---
TAGGED RED BLOOD CELL GI BLEEDING SCAN CLINICAL HISTORY: GI bleeding. COMPARISON STUDY: CTA of the abdomen and pelvis May 26, 2025. Medicine GI bleeding study April 24, 2021. TECHNIQUE: Following the IV administration of 26 mCi of technetium 99m UltraTag labeled red blood norman ls, nuclear bleeding scan was performed. Anterior flow images were obtained every 2 seconds for a tot al 48 seconds. Anterior static images were obtained every 5 minutes for a total of 25 minutes. The pa tient deferred further imaging. FINDINGS: Imaging was carried out for 25 minutes following radiotracer administration. Therefore, th is study is incomplete however, there are no findings to suggest active GI bleed during this 25 minut e study. Expected radiotracer distribution is noted. There are no areas of abnormal radiotracer uptak e. IMPRESSION: Incomplete exam, as described above. However, no evidence for active GI bleed during thi s 25 minute study. ACT 112: Negative or not required by law. Electronically signed by: Keshawn Mcekon M.D. 05/27/2025 12:15 PM
--- NOTE | 2025-05-27 13:12 | XRay Report ---
XR pelvis 1-2V routine CLINICAL HISTORY: pain r/o fracture COMPARISON: 11/05/2023 FINDINGS: Left hip prosthesis shows no hardware complication. No fracture or dislocation seen. No si gnificant degenerative change at the right hip. SI joints are unremarkable. There are lower lumbar de generative changes. IMPRESSION: No fracture seen. ACT 112: Negative or not required by law. Electronically signed by: Prasanth Armijo M.D. 05/27/2025 1:11 PM
--- NOTE | 2025-05-27 13:18 | XRay Report ---
XR lumbar spine 2-3V CLINICAL HISTORY: pain, r/o fracture COMPARISON STUDY: 01/02/2025 FINDINGS: There is osteopenia. There is stable mild height loss at the L1 vertebral body. No interval lumbar spine fracture seen. There is moderate diffuse degenerative disc disease and lower lumbar fac et degeneration. Stable minimal retrolisthesis of L2 on 3 and L3 on 4. There are scattered atheroscle rotic calcifications. IMPRESSION: No acute fracture seen at the lumbar spine. ACT 112: Negative or not required by law. Electronically signed by: Prasanth Armijo M.D. 05/27/2025 1:17 PM
--- NOTE | 2025-05-27 13:21 | Gastroenterology Progress Note ---
Date of Service May 27, 2025 Assessment & Plan (1) GI bleed: Plan Patient is an 89 yo with HTN, valvular heart disease (trace MR/TR), COPD, pulmonary nodule, hypertension, gastritis/duodenitis/diverticulosis, pancreatitis, BPH, chronic anemia (baseline hemoglobin of 12), dementia as per family, past tobacco/alcohol abuse who presented to the ED from his long term due to rectal bleeding. Hgb slightly downtrending now to 7.5g/dl. Abd/pelvis CTA and Nuclear medicine scan negative for active GI bleed. (1) Hematochezia and Anemia. - Hgb 7.5/dl down from 8.3g/dl yesterday. - Patient denies any active signs of bleeding today. Overnight communication report reveal small blood tinged BM overnight. - I was also notified by staff this afternoon that he had an additional melena stool today. - Case reviewed with Dr. Vernon. - We'll plan for EGD and Flexible sigmoidoscopy tomorrow. - Continue with H/H monitoring and transfuse as indicated. - Further recommendations to come with endoscopy. - Please see co-signature notes for further comments. Admission and Anticipated Discharge Date Admission Date: May 24, 2025 Supervising Physician Co-Signing Physician Notes Evidence of ongoing bleeding. Nursing notes dark and red stool. Hemoglobin 8 on last check this evening at 1700. Question about bleeding at the anorectal junction on CT. Nuclear medicine study negative. Plan flexible sigmoidoscopy possible EGD tomorrow for potential source for bleeding. Patient refuses oral preparation tapwater enema. Subjective Patient is an 89 yo with HTN, valvular heart disease (trace MR/TR), COPD, pulmonary nodule, hypertension, gastritis/duodenitis/diverticulosis, pancreatitis, BPH, chronic anemia (baseline hemoglobin of 12), dementia as per family, past tobacco/alcohol abuse who presented to the ED from his long term due to rectal bleeding. Patient has been hospitalized with rectal bleeding previously. He has been felt to have diverticular bleeding during previous admissions. Hgb 12.1 g/dl upon arrival. Dropped to low of 7.5g/dl today. No CT imaging performed during this admission. Charted bright red blood and dark red blood during this hospital encounter. He has had EGD & colonoscopy for the same indication. In 06/2024 he had an EGD that showed gastritis and duodenitis. In 06/2024 he also had a colonoscopy that indicated diverticulosis. BUN 24, Cr 0.67. He takes Protonix at home. No significant abdominal pain. We obtained CTA abd/pelvis x 2 and Nuclear Medical scan to screen for active bleeding which are all negative. He's seen today on daily rounds. He denies any active bleeding, abdominal pain, N/V/D, melena or hematochezia. He states he hasn't gone to the bathroom today. ? Historian given history of dementia. Pertinent Diagnostics Hgb 7.5g/dl (down from 8.3 yesterday), Hct 22? WBC 4.89, Plt 168k/ul MCV 95. Vitamin B12 156 GI Bleeding Nuclear Scan 05/27/25 - CTA Abd/pelvis 05/26/25 - FINDINGS: Imaging was carried out for 25 minutes following radiotracer administration. Therefore, this study is incomplete however, there are no findings to suggest active GI bleed during this 25 minute study. Expected radiotracer distribution is noted. There are no areas of abnormal radiotracer uptake. IMPRESSION: Incomplete exam, as described above. However, no evidence for active GI bleed during this 25 minute study. Lower chest: The heart is enlarged and without pericardial effusion. The coronary arteries are densely calcified. Emphysema is observed. There are small pleural effusions with dependent consolidation. Again seen is a 1.9 cm spiculated nodule in the right lower lobe on image #22. This contains a calcification as well as foci of cavitation. Liver: The contrast-enhanced liver is normal in size, contour, and attenuation. There is no intrahepatic biliary ductal dilatation. Pneumobilia is again noted. Gallbladder: Surgically absent noting clips in the gallbladder fossa. Spleen: Normal in size and attenuation noting heterogeneous arterial phase enhancement. Pancreas: Unremarkable. Adrenal glands: Unremarkable. Kidneys: The contrast enhanced kidneys are normal in size and without hydronephrosis. The kidneys enhance symmetrically. A subcentimeter cortical h ypodensity in the interpolar right kidney likely represents a cyst but is too small for definitive characterization. There is mild stenosis at the origin of the smaller superiorly located accessory left renal artery seen on axial image #77. The main renal arteries are patent bilaterally. Abdominal aorta and iliac arteries: There is advanced atherosclerotic calcification and ectasia of the abdominal aorta. The abdominal aorta is widely patent. No dissection is seen. The iliac vessels are patent bilaterally noting advanced atherosclerotic plaque and irregularity. Major branches of the abdominal aorta: The celiac trunk, superior mesenteric, and inferior mesenteric arteries are widely patent. Hepatic arterial anatomy is conventional. The splenic artery is patent. There are 2 left renal arteries and a single right renal artery. Bowel: There is advanced clonic diverticulosis without CT evidence of acute diverticulitis. No bowel obstruction is seen. No intraluminal contrast is identified on today's examination to suggest a site of active GI bleeding. Duodenal diverticula are observed. The appendix is not visualized. Peritoneum: There is no intraperitoneal free air or abdominal ascites. There is a small fat-containing umbilical hernia. Lymphadenopathy: None. Pelvic viscera: Evaluation of the pelvis is degraded by streak artifact from left hip arthroplasty. The prostate gland is markedly enlarged and heterogeneous. The bladder wall appears thickened/trabeculated indicating chronic outlet obstruction. Skeletal structures: The skeletal structures are osteopenic. There is advanced and the sacral spondylosis and scoliosis. No lytic or blastic bony lesions are seen. 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 IMPRESSION: 1. Cardiomegaly and emphysema. 2. There is advanced atherosclerotic calcification of the abdominal aorta and its major branches. 3. No intraluminal contrast is identified to indicate a site of active GI bleeding on today's examination. The focus of intraluminal contrast seen at the anal rectal junction on 05/24/2025 is not appreciated on today's examination. 4. Advanced colonic diverticulosis without CT evidence of acute diverticulitis. 5. A suspicious 1.9 cm right lower lobe pulmonary nodule is again noted. 6. There is mild stenosis at the origin of a small accessory left renal artery. 7. Additional findings as above. Review of Systems Review of Systems: See HPI Physical Exam Physical Exam: Constitutional: NAD. Alert. Answering questions appropriately. Respiratory: Breathing is even, non-labored. Lungs walker are clear to auscultation anteriorly. Cardiovascular: Regular Rate and Rhythm, no murmurs, rubs or gallops appreciated. Gastrointestinal (Abdomen): Normoactive bowel sounds x4, soft, non-distended, non-tender. Musculoskeletal: Lying in bed comfortably. No peripheral edema. Results & Data Results & Data Vital Signs (Past 12 Hours) Vital Signs Temp Pulse Pulse Resp BP Pulse Ox O2 Del Method 05/27/25 11:16 97.3 F L 52 L 16 110/55 L 94 Room Air 05/27/25 07:39 97.5 F L 53 L 16 112/62 94 Room Air 05/27/25 06:45 57 L 05/27/25 03:51 97.9 F 64 18 125/55 L 94 Room Air PG Care Time/CCT Total # of Minutes Spent Total Time Spent with Patient: Total time spent is greater than 50% in coordination of care (as documented) at patient's floor/unit and/or counseling patient: Coding Level of Care Code 22135 SUB INP/OBS CARE 3/50MIN Diagnoses GI bleed K92.2
--- NOTE | 2025-05-27 13:25 | Hospitalist Progress Note ---
Date of Service May 27, 2025 Assessment & Plan (1) GI bleed: (2) Acute blood loss anemia: Plan: (1) GI bleed: Plan: per admitting hospitalist notes with addendum: Assessment and plan below following discussion of case with ED provider and reviewing patient history/pertinent normal/abnormal diagnostic test results. GI bleed Painless UGIB/LGIB combo, history gastritis/duodenitis/diverticulosis on endoscopy last year -- Hg 12--> 11--> 9.8 start Protonix drip -- GI consulted: recommend supportive care in light of recent EGD and colonoscopy Bleeding likely secondary to diverticulosis 05/25 Hemoglobin remaining stable around 8.7, 8.8 Advance diet to clear liquids Continue gentle IV fluids Continue supportive care 05/26 hemoglobin trended down to 8.0 Notified GI service-Dr. Barcenas Repeat CTA ordered, no signs of active GI bleeding repeat hemoglobin at 1700 Continue IV fluids, supportive care 05/27 (+) melena this AM Hg decreased to 7.5 repeat Hg GI on board Acute on Chronic anemia -- monitor Hg -- check anemia panel valvular heart disease (trace MR/TR) COPD, not in acute exacerbation pulmonary nodule, possible malignancy, patient refused workup as per last outpatient [facility] pulmonology visit from 2020 Hyperglycemia rule out DM : 5.2 dementia as per family past tobacco/alcohol abuse DVT prophylaxis SCDs Re: GI bleed Full code Disposition Admitted to Med/Surg telemetry Patient resides in [facility] Plan Underweight with BMI 17.9 Admission and Anticipated Discharge Date Admission Date: May 24, 2025 Subjective seen resting in bed, comfortable had another episode of melena this morning Answers most simple questions appropriately States he feels fine overall Denies abdominal pain No shortness of breath, chest pain, palpitations, dizziness Denies back pain today No other new symptoms Review of Systems Review of Systems: all noted and negative except for above Physical Exam Physical Exam: General- oriented x 1-2, not in distress, speaks in sentences with no effort or accessory muscle use Eyes- anicteric Neck- no JVD Lungs- clear BS BL Heart- normal rate, regular rhythm; no murmurs Abdomen- normal bowel sounds, nondistended, soft, no tenderness Extremities- no pretibial edema, no calf tenderness Neuro- alert, oriented x 1-2; no gross focal neurologic deficits Skin- warm & dry Results & Data Results & Data Vital Signs (Past 12 Hours) Vital Signs Temp Pulse Pulse Resp BP Pulse Ox O2 Del Method 05/27/25 11:16 36.3 C L 52 L 16 110/55 L 94 Room Air 05/27/25 07:39 36.4 C L 53 L 16 112/62 94 Room Air 05/27/25 06:45 57 L 05/27/25 03:51 36.6 C 64 18 125/55 L 94 Room Air all noted and reviewed including below
--- NOTE | 2025-05-27 13:29 | XRay Report ---
XR thoracolumbar spine 2V CLINICAL HISTORY: back pain r/o fracture COMPARISON STUDY: 01/02/2025 lumbar spine FINDINGS: There is stable mild height loss at the L1 vertebral body. No fracture or subluxation seen at the thoracic spine. There are mild diffuse degenerative changes. There is minimal scoliosis. IMPRESSION: No thoracic spine fracture seen. ACT 112: Negative or not required by law. Electronically signed by: Prasanth Armijo M.D. 05/27/2025 1:28 PM
[2025-05-27 14:01] LABS: Anion Gap 4.0 (3-11); Blood Urea Nitrogen 14.0 mg/dl (6-23); Calcium 8.1 mg/dl (8.6-10.3); Carbon Dioxide 25.0 mmol/L (21-32); Chloride 112.0 mmol/L (98-107); Creatinine Clr Calc Pharmacy 85.9 ml/min; Glucose 116.0 mg/dl (70-99(Fasting)); Potassium 3.5 mmol/L (3.5-5.1); Sodium 141.0 mmol/L (136-145)
[2025-05-27 17:44] LABS: Hematocrit (blood only) 23.8 % (42.0-52.0); Hemoglobin 8.0 g/dL (14.0-18.0)
[2025-05-27] MEDS ORDERED: PHA DELIRIUM CONSULT PRN (23:18)
[2025-05-27] MEDS ORDERED: Nursing to Pharmacy Communication SCH (23:30)
[2025-05-28 06:38] LABS: Hematocrit (blood only) 21.8 % (42.0-52.0); Hemoglobin 7.5 g/dL (14.0-18.0); Immature Granulocytes # (auto) 0.04 K/uL (0.01-0.20); Immature Granulocytes % (auto) 0.5 %; Mean Corpuscular Hemoglobin 32.8 pg (25.0-34.0); Mean Corpuscular Volume 95.2 fL (80.0-100.0); Platelet Count 217 K/uL (130-400); RDW Standard Deviation 50.3 fL (36.4-46.3); Red Blood Count 2.29 M/uL (4.70-6.10); White Blood Count 7.54 K/ul (4.8-10.8)
[2025-05-28 07:00] LABS: Anion Gap 5 (3-11); Blood Urea Nitrogen 12 mg/dl (6-23); Calcium 8.7 mg/dl (8.6-10.3); Carbon Dioxide 26 mmol/L (21-32); Chloride 112 mmol/L (98-107); Creatinine Clr Calc Pharmacy 76.1 ml/min; Glucose 106 mg/dl (70-99(Fasting)); Potassium 3.4 mmol/L (3.5-5.1); Sodium 143 mmol/L (136-145)
[2025-05-28 07:07] LABS: Iron < 10 mcg/dl (35-175); Magnesium 1.9 mg/dl (1.7-2.4)
[2025-05-28] MEDS ORDERED: INFLUENZA VACC TS2025-26(65y+)/PF (IIV3) 0.5mL Syr IM ONE (07:20)
[2025-05-28] MEDS ORDERED: PNEUMOCOCCAL VACCINE (PCV20) 20-VAL CONJ-DIP CRM/PF 0.5 ML SYR IM ONE (07:21)
[2025-05-28 07:50] LABS: Folate (Folic Acid),Ser orPlas 13.4 ng/ml (>5.38)
[2025-05-28 07:51] LABS: Vitamin B12 1133.0 pg/ml (180-914)
[2025-05-28 07:53] LABS: RBC Morphology Unremarkable
[2025-05-28] MEDS: POTASSIUM CHLORIDE / WTR 10 MEQ/100 ML PLCT IV SCH (07:54)
[2025-05-28] MEDS: IRON SUCROSE 300 MG in SODIUM CHLORIDE 0.9% 250 ML IV ONE (08:36)
--- NOTE | 2025-05-28 09:49 | History & Physical Bridge Note ---
Date of Service May 28, 2025 History & Physical Bridge Note I have examined the patient, reviewed the History & Physical and in the interval since the performance of the History & Physical I have noted the following changes of clinical significance: no changes noted No bleeding or melena reported. Hgb 7.5g/dl. VSS. Patient has been NPO after midnight. Plan to proceed with EGD and Flex Sigmoidoscopy today as scheduled. Supervising Physician Co-Signing Physician Notes Patient continues to have blood with clots per rectum. The plan will be to do an EGD to exclude brisk upper GI bleeding with persistent recurrent anemia. Librado l also evaluate the lower GI tract. Working diagnosis is diverticular bleeding. CT and nuclear medicine study did not document the source of bleeding. There was a question about bleeding from the anal rectal junction on his first CT scan. Patient reasonably with it though cannot give consent himself. Reviewed the procedures with the patient but also got a telephone consent from his son MARI. Proceed with upper and lower endoscopy today.
[2025-05-28] MEDS ORDERED: PHA DELIRIUM CONSULT PRN (11:01)
--- NOTE | 2025-05-28 12:53 | Anesthesiology Consultation ---
Date of Service May 28, 2025 History Surgery Operation Date: 05/28/25 17:25 Proposed Procedures p Flexible Sigmoidoscopy Dr. Saulo Vernon MD s Esophagogastroduodenoscopy Dr. Saulo Vernon MD Height/Weight Height: 5 ft 11 in Weight: 58 kg Allergies Allergy/AdvReac Type Severity Reaction Status Date / Time meloxicam Allergy Mild RASH Verified 12/17/24 13:46 hydrochlorothiazide AdvReac Severe PANCREATITI Verified 12/17/24 13:46 S morphine AdvReac Severe convulsions Verified 12/17/24 13:46 gabapentin AdvReac Intermediate Fainting Verified 12/17/24 13:46 Medications Home Medications Medication Instructions Recorded Confirmed Last Taken tamsulosin 0.4 mg capsule (Flomax) 0.8 mg PO HS 11/11/18 05/24/25 10/24/23 cholecalciferol (vitamin D3) 50 50 mcg PO QAM 04/24/21 05/24/25 10/25/23 mcg (2,000 unit) capsule (Vitamin D3) acetaminophen 325 mg tablet 650 mg PO Q6H PRN TEMP>100 05/13/23 05/24/25 Unknown (Tylenol) acetaminophen 500 mg tablet 1,000 mg PO BID 05/13/23 05/24/25 10/25/23 08:30 polyethylene glycol 3350 17 gram 17 g PO QAM PRN Constipation 05/13/23 05/24/25 Unknown oral powder packet (Miralax) Prevagen 1 tab PO DAILY 07/04/24 05/24/25 Unknown latanoprost 0.005 % eye drops 1 drp OPB HS 07/04/24 05/24/25 Unknown acetaminophen 325 mg tablet 650 mg PO Q6 PRN Pain 01/01/25 05/24/25 Unknown ferrous sulfate 325 mg (65 mg 325 mg PO QAM 01/01/25 05/24/25 Unknown iron) tablet pantoprazole 40 mg tablet,delayed 40 mg PO QAM gastric erosions 01/01/25 05/24/25 Unknown release (Protonix) cyanocobalamin (vitamin B-12) 1,000 mcg PO DAILY 05/24/25 05/24/25 Unknown 1,000 mcg tablet (Vitamin B-12) loperamide 2 mg capsule 2 mg PO QAM 05/24/25 05/24/25 Unknown Active Medications Generic Name Dose Route Start Last Admin Trade Name Freq PRN Reason Stop Dose Admin Acetaminophen 1,000 mg 05/24/25 09:00 05/28/25 08:45 Acetaminophen 500 Mg Tab PO 06/23/25 08:59 Not Given BID LOUIS Acetaminophen 325 mg 05/24/25 02:48 05/27/25 05:38 Acetaminophen 325 Mg Tab PO 06/23/25 02:47 325 mg QID PRN Administration pain/fever Cyanocobalamin 1,000 mcg 05/24/25 09:00 05/28/25 08:43 Cyanocobalamin (B-12) 500 Mcg Tablet PO 06/23/25 08:59 1,000 mcg DAILY LOUIS Administration Ferrous Sulfate 325 mg 05/24/25 09:00 05/28/25 08:43 Ferrous Sulfate 325 Mg Tab PO 06/23/25 08:59 325 mg QAM LOUIS Administration Pantoprazole Sodium 40 mg/ 100 mls @ 20 mls/hr 05/24/25 10:45 05/28/25 08:35 Dextrose IV 06/23/25 10:44 8 mg/hr Q5H LOUIS 20 mls/hr Administration 8 MG/HR Latanoprost 1 drops 05/24/25 21:00 05/27/25 22:02 Latanoprost 0.005% Op Soln 2.5 Ml Btl OPB 06/23/25 20:59 1 drops HS LOUIS Administration Tamsulosin HCl 0.8 mg 05/24/25 21:00 05/27/25 22:03 Tamsulosin Hcl 0.4 Mg Cap PO 06/23/25 20:59 0.8 mg HS LOUIS Administration Tramadol HCl 50 mg 05/24/25 10:07 05/26/25 06:56 Tramadol Hcl 50 Mg Tablet PO 06/23/25 10:03 50 mg Q8H PRN Administration moderate to severe pain Vitamin D 50 mcg 05/24/25 09:00 05/28/25 08:43 Cholecalciferol 25 Mcg (1000 Units) Tab PO 06/23/25 08:59 50 mcg QAM LOUIS Administration Past Medical History Medical History (Updated 05/28/25 @ 12:53 by Ruslan Haas MD) Alcohol abuse GI bleed Abnormal urinalysis Aortic valve sclerosis Bladder stones History of colon polyps History of COVID-19 09/11/21 @ [facility] (asymptomatic, tested prior to procedure)--no issues Hearing deficit Acute pancreatitis Osteoarthritis Spinal stenosis B/L LE radiculopathy History of hypertension controlled since weight loss Mandibular fracture 05/27 (+) melena this AM Hg decreased to 7.5 repeat Hg GI on board Acute on Chronic anemia -- monitor Hg -- check anemia panel valvular heart disease (trace MR/TR) COPD, not in acute exacerbation pulmonary nodule, possible malignancy, patient refused workup as per last outpatient [facility] pulmonology visit from 2020 Hyperglycemia rule out DM : 5.2 dementia as per family past tobacco/alcohol abuse Past Family History Family History Mother Liver cancer Past Surgical History Surgical History History of ERCP (~11/30/20) History of esophagogastroduodenoscopy (EGD) last 09/29/21 @ [place] History of colonoscopy Previous back surgery History of tonsillectomy and adenoidectomy Hx of toe surgery HAD TOENAIL REMOVED IN OFFICE 12/2018 Hx of tonsillectomy Hx of hernia repair RIGHT INGUINAL History of carpal tunnel surgery RIGHT HAND History of appendectomy Social History Smoking Status: Unknown if ever smoked tobacco type: cigarettes Do You Dip or Chew Tobacco: No Alcohol type: hard liquor alcohol intake frequency: holidays/special occasions only substance use type: does not use Physical Exam Vital Signs Last Vital Signs Temp 36.6 C 05/28/25 07:32 Pulse 74 05/28/25 11:56 Resp 18 05/28/25 07:32 BP 128/63 05/28/25 07:32 Pulse Ox 95 05/28/25 07:32 O2 Del Method Room Air 05/28/25 07:32 Testing Laboratory Results 05/28/25 06:21 05/28/25 06:21 PT 11.4 Seconds (9.0-12.0) 05/23/25 23:46 INR 1.1 (0.9-1.1) 05/23/25 23:46 APTT 31 Seconds (21-31) 05/23/25 23:46 Hemoglobin A1c 5.2 % (4.5-5.6) 05/24/25 04:15 Urine Color Yellow 05/26/25 14:15 Urine Appearance Clear (Clear) 05/26/25 14:15 Urine pH 5.0 (4.5-7.5) 05/26/25 14:15 Ur Specific [place] > 1.045 (1.000-1.030) H 05/26/25 14:15 Urine Protein Negative (Negative) 05/26/25 14:15 Urine Glucose (UA) Negative (Negative) 05/26/25 14:15 Urine Ketones Negative (Negative) 05/26/25 14:15 Urine Nitrite Negative (Negative) 05/26/25 14:15 Ur Leukocyte Esterase 2+ (Negative) H 05/26/25 14:15 Urine WBC (Auto) >50 /hpf (0-5) H 05/26/25 14:15 Urine RBC (Auto) 0-2 /hpf (0-2) 05/26/25 14:15 U Hyaline Cast (Auto) 0-2 /lpf (0-2) 05/26/25 14:15 U Epithel Cells (Auto) 0-2 /hpf (0-2) 05/26/25 14:15 Urine Bacteria (Auto) 2+ (None Seen) H 05/26/25 14:15 Blood Type O Positive 05/23/25 23:47 Antibody Screen NEGATIVE 05/23/25 23:47 05/26/25 14:15 Urine Culture - Final Urine,Clean Catch Three types of organisms present, all moderate counts. Repeat collection recommended. No further identifications or sensitivities to follow. Electrocardiogram Date: 05/24/25 DICTATED BY: Marino Montes MD Test Reason : Blood Pressure : */* mmHG Vent. Rate : 67 BPM Atrial Rate : 67 BPM P-R Int : 162 ms QRS Dur : 132 ms QT Int : 442 ms P-R-T Axes : 13 -44 16 degrees QTcB Int : 467 ms Sinus rhythm with Premature ventricular complexes Left axis deviation Right bundle branch block Abnormal ECG When compared with ECG of 01-Jan-2025 11:27, Premature ventricular complexes are now Present Inverted T waves have replaced nonspecific T wave abnormality in Anterior leads Confirmed by Marino Montes ([id number]) on 05/25/2025 8:03:[address] abdomen 05/2025: IMPRESSION: 1. Cardiomegaly and emphysema. 2. There is advanced atherosclerotic calcification of the abdominal aorta and its major branches. 3. No intraluminal contrast is identified to indicate a site of active GI bleeding on today's examination. The focus of intraluminal contrast seen at the anal rectal junction on 05/24/2025 is not appreciated on today's examination. 4. Advanced colonic diverticulosis without CT evidence of acute diverticulitis. 5. A suspicious 1.9 cm right lower lobe pulmonary nodule is again noted. 6. There is mild stenosis at the origin of a small accessory left renal artery. 7. Additional findings as above.
[2025-05-28 15:22] LABS: Hematocrit (blood only) 23.9 % (42.0-52.0); Hemoglobin 8.1 g/dL (14.0-18.0)
--- NOTE | 2025-05-28 16:26 | Communication Note ---
Date of Service: May 28, 2025 EGD Small nonbleeding AVM third part of the duodenum. No bleeding on contact not the source for gastrointestinal blood loss. However may signify AVMs elsewhere in the intestines. Colonoscopy Could not be completed adequately due to extremely poor preparation and 0 visibility. Unfortunately we have had no luck having this patient drink a colon preparation. Tapwater enemas will be insufficient in this gentleman to allow adequate visualization. At this point observe clinical course transfuse as needed.
--- NOTE | 2025-05-28 16:34 | GI REPORT ---
[facility] Patient: MARILUZ ANAYA : 1935 Sex at : Male Age: 89 Years Procedure: Upper GI endoscopy Date: 05/28/2025 Attending Physician: Erickson Vernon MD Referring MD: Sb Ceballos Indications: - Suspected upper gastrointestinal bleeding - Melena Medications: - Monitored Anesthesia Care Complications: - No immediate complications. Estimated Blood Loss: - Estimated blood loss: None. Procedure: - The egd scope was introduced through the mouth and advanced to the third part of the duodenum. - The upper GI endoscopy was accomplished without difficulty. - The patient tolerated the procedure well. Findings: - The examined esophagus was normal. - The entire examined stomach was normal. - A single small angiodysplastic lesion without bleeding was found in the third portion of the duodenum. No bleeding on contact, not source of bleeding so not treated Impression: - Normal esophagus. - Normal stomach. 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 - No bleeding on contact, not source of bleeding so not treated - No specimens collected. - No bleeding from the upper GI tract. AVM in the third part of duodenum would not be a bleeding source based on single lesion no spontaneous or induced bleeding. However may signify AVMs elsewhere in the colon including the right colon and/or small bowel. Flex sig colonoscopy planned for today. Recommendation: Procedure Code(s): - 07560, Esophagogastroduodenoscopy, flexible, transoral; diagnostic, including collection of specimen(s) by brushing or washing, when performed (separate procedure) Diagnosis Code(s): - K92.1, Melena (includes Hematochezia) - K31.819, Angiodysplasia of stomach and duodenum without bleeding CPT(R) - 2023 copyright [employer]. All Rights Reserved. The CPT codes, CCI edits and ICD codes generated are intended as suggestions and were generated based on input data. These codes are preliminary and upon international banker review may be revised to meet current compliance and payer requirements. The provider is responsible for the final determination of appropriate codes, and modifiers. Erickson Vernon MD This document has been electronically signed. Note Initiated:05/28/2025 Note Completed:05/28/2025 4:34 PM \\[email or web address]\Central\InterfaceData\Data\Provation\Results\LIVE\[id number]
--- NOTE | 2025-05-28 16:40 | GI REPORT ---
[facility] Patient: MARILUZ ANAYA : 1935 Sex at : Male Age: 89 Years Procedure: Flexible Sigmoidoscopy Date: 05/28/2025 Attending Physician: Erickson Vernon MD Referring MD: Sb Ceballos Indications: - Melena hematochezia Medications: - Monitored Anesthesia Care Complications: - No immediate complications. Estimated Blood Loss: - No blood loss from the procedure Procedure: - The egd scope was introduced through the anus and advanced to the sigmoid colon. - The quality of the bowel preparation was inadequate. - The flexible sigmoidoscopy was aborted due to poor bowel prep with stool present. Findings: - The digital rectal exam was normal. Pertinent negatives include no palpable rectal lesions. - Old blood in stool red and black was found in the rectum and in the sigmoid colon. Lavage of the area was performed using copious amounts, resulting in incomplete clearance with continued poor visualization. Impression: - Preparation of the colon was inadequate. - The procedure was aborted due to poor bowel prep with stool present. - Old dark blood in the rectum and in the sigmoid colon. - No specimens collected. - Completely inadequate exam due to stool blood and potentially iron staining. No visualization. The fecal material adherent to the bowel wall making lavage inadequate. Numerous diverticuli increasing risk of procedure and is poorly prep bowel. Procedure aborted. Recommendation: - Patient will not drink patient was unable or could not take a colon preparation. - Would not be identify a source of bleeding or complete the exam with this level of inadequate preparation. This was after 2 tapwater enemas. Suggest observe clinical course. Transfuse as needed. If patient was able to drink a preparation we could reconsider exam. Reviewed with the son Dieudonne by phone. Procedure Code(s): - 88283, Sigmoidoscopy, flexible; diagnostic, including collection of specimen(s) by brushing or washing, when performed (separate procedure) Diagnosis Code(s): - K62.5, Hemorrhage of anus and rectum - K92.2, Gastrointestinal hemorrhage, unspecified CPT(R) - 2022 copyright [employer]. All Rights Reserved. The CPT codes, CCI edits and ICD codes generated are intended as suggestions and were generated based on input data. These codes are preliminary and upon wood carving machine operator review may be revised to meet current compliance and payer requirements. The provider is responsible for the final determination of appropriate codes, and modifiers. Erickson Vernon MD This document has been electronically signed. Note Initiated:05/28/2025 Note Completed:05/28/2025 4:39 PM [id number]
--- NOTE | 2025-05-28 16:44 | Anesthesiology Progress Note ---
Date of Service May 28, 2025 Anesthesia Post Procedure Vital Signs Vital Signs: Temp Pulse Pulse Resp BP Pulse Ox O2 Del Method 05/28/25 16:32 72 16 94/47 L 93 Room Air 05/28/25 15:12 36.7 C 67 16 131/61 93 Room Air 05/28/25 13:59 69 05/28/25 11:56 74 05/28/25 07:32 36.6 C 73 18 128/63 95 Room Air 05/28/25 03:14 36.6 C 74 18 115/62 95 Room Air 05/27/25 23:28 36.7 C 62 18 113/65 96 Room Air 05/27/25 23:09 58 L 05/27/25 19:41 36.7 C 61 18 118/57 L 95 Room Air Transfer of Care Handoff Completed per policy Notes Mental Status: alert / awake / arousable Patient Amnestic to Procedure: Yes Nausea / Vomiting: adequately controlled Pain: adequately controlled Airway Patency, RR, SpO2: stable & adequate BP & HR: stable & adequate Hydration State: stable & adequate Anesthetic Complications: no major complications apparent
--- NOTE | 2025-05-28 17:22 | Hospitalist Progress Note ---
Date of Service May 28, 2025 Assessment & Plan (1) GI bleed: (2) Acute blood loss anemia: Plan: (1) GI bleed: Plan: per admitting hospitalist notes with addendum: GI bleed, Melena and Hematochezia -- history gastritis/duodenitis/diverticulosis 2023 -- GI consulted, suspected diverticular bleed, recommended supportive care initial CT angiogram showing extravasation of contrast in the rectosigmoid junction subsequent CT angiogram and nuclear med scan showing no active GI bleed -- continued on Protonix drip -- However patient continued to have intermittent melena, hemoglobin trended down to around 7.5-8 -- today s/p EGD: No bleeding from the upper GI tract. AVM in the third part of duodenum would not be a bleeding source based on single lesion no spontaneous or induced bleeding. However may signify AVMs elsewhere in the colon including the right colon and/or small bowel. Flex sig colonoscopy planned for today. s/p Flex Sig: Would not be identify a source of bleeding or complete the exam with this level of inadequate preparation. This was after 2 tapwater enemas. Suggest observe clinical course. Transfuse as needed. If patient was able to drink a preparation we could reconsider exam. Reviewed with the son Dieudonne by phone. - Continue with supportive care Protonix drip Monitor H&H closely Acute on Chronic anemia Acute blood loss anemia secondary to above Iron deficiency anemia -- Hg seems to have plateaued at ~8 has not required blood transfusion -- iron level less than 10, Venofer ordered today -- monitor Hg other chronic medical problems: valvular heart disease (trace MR/TR) COPD, not in acute exacerbation pulmonary nodule, possible malignancy, patient refused workup as per last outpatient [facility] pul[place] [place] from 2020 dementia as per family past tobacco/alcohol abuse DVT prophylaxis SCDs Re: GI bleed Full code Disposition Admitted to Med/Surg telemetry Patient resides in [facility] Plan Underweight with BMI 17.9 Admission and Anticipated Discharge Date Admission Date: May 24, 2025 Subjective seen resting in bed, comfortable answering simple questions appropriately States he feels okay today overall Denies abdominal pain No melena or hematochezia this morning No nausea vomiting No shortness of breath Review of Systems Review of Systems: all noted and negative except for above Physical Exam Physical Exam: General- oriented x 1-2, not in distress, speaks in sentences with no effort or accessory muscle use Eyes- anicteric Neck- no JVD Lungs- clear BS BL Heart- normal rate, regular rhythm; no murmurs Abdomen- normal bowel sounds, nondistended, soft, no tenderness Extremities- no pretibial edema, no calf tenderness Neuro- alert, oriented x 1-2; no gross focal neurologic deficits Skin- warm & dry Results & Data Results & Data Vital Signs (Past 12 Hours) Vital Signs Temp Pulse Pulse Resp BP Pulse Ox O2 Del Method 05/28/25 17:02 70 16 113/53 L 93 Room Air 05/28/25 16:47 69 16 108/51 L 93 Room Air 05/28/25 16:32 72 16 94/47 L 93 Room Air 05/28/25 15:12 36.7 C 67 16 131/61 93 Room Air 05/28/25 13:59 69 05/28/25 11:56 74 05/28/25 07:32 36.6 C 73 18 128/63 95 Room Air all noted and reviewed including below
[2025-05-28] MEDS: PROPOFOL IV EMULSION 10 MG/ML 20 ML VIAL IV ONE (17:44)
[2025-05-28] MEDS: LIDOCAINE 2% 2 ML VIAL/AMP(20MG/ML) INFIL ONE (17:44)
[2025-05-28] MEDS: ePHEDrine sulfate 50 MG/5 ML SYR ONE (17:44)
[2025-05-28] MEDS: POTASSIUM CHLORIDE 20 MEQ/15 ML UDC PO ONE (17:56)
[2025-05-29 07:02] LABS: Hematocrit (blood only) 22.2 % (42.0-52.0); Hemoglobin 7.4 g/dL (14.0-18.0); Immature Granulocytes # (auto) 0.03 K/uL (0.01-0.20); Immature Granulocytes % (auto) 0.5 %; Mean Corpuscular Hemoglobin 32.0 pg (25.0-34.0); Mean Corpuscular Volume 96.1 fL (80.0-100.0); Platelet Count 224 K/uL (130-400); RDW Standard Deviation 53.2 fL (36.4-46.3); Red Blood Count 2.31 M/uL (4.70-6.10); White Blood Count 6.53 K/ul (4.8-10.8)
[2025-05-29 07:25] LABS: Anion Gap 6.0 (3-11); Blood Urea Nitrogen 10.0 mg/dl (6-23); Calcium 8.9 mg/dl (8.6-10.3); Carbon Dioxide 25.0 mmol/L (21-32); Chloride 110.0 mmol/L (98-107); Creatinine Clr Calc Pharmacy 81.0 ml/min; Glucose 102.0 mg/dl (70-99(Fasting)); Magnesium 1.9 mg/dl (1.7-2.4); Potassium 4.0 mmol/L (3.5-5.1); Sodium 141.0 mmol/L (136-145)
[2025-05-29 07:31] LABS: Polychromasia 1+
[2025-05-29] MEDS ORDERED: PHA DELIRIUM CONSULT PRN (10:51)
--- NOTE | 2025-05-29 12:38 | Gastroenterology Progress Note ---
Date of Service May 29, 2025 Assessment & Plan (1) GI bleed: Plan Patient is an 89 yo with HTN, valvular heart disease (trace MR/TR), COPD, pulmonary nodule, hypertension, gastritis/duodenitis/diverticulosis, pancreatitis, BPH, chronic anemia (baseline hemoglobin of 12), dementia as per family, past tobacco/alcohol abuse who presented to the ED from his long-term due to rectal bleeding. Initial CTA revealed focus consistent with acute GI bleed in anorectal junction. F/U CTA 05/26 and Nuclear medicine scan negative on 05/27/25 negative. We were unable to visualize any active bleeding d/t poor prep (declined colonoscopy prep). Tap water enemas were ineffective. (1) Hematochezia and Anemia. - Hgb 7.4 down from 8.1g/dl yesterday. - Patient denies any active signs of bleeding today. - Reviewed with attending animal health technician. - May repeat colonoscopy for evaluation with colonoscopy prep. - Otherwise would continue to observe for signs of bleeding, H/H monitoring with transfusions as indicated. Admission and Anticipated Discharge Date Admission Date: May 24, 2025 Supervising Physician Co-Signing Physician Notes Clinically stable. BP 114 and 60. Patient exam at the bedside's without change. Nursing noted only 1 bowel movement today dark without fresh blood. Transfuse as needed. In the absence of a good bowel prep I do not think further endoscopy will be helpful. It is not likely that Kole will be able to proceed in that regard. Diagnosis at this point is either diverticular bleeding or small bowel AVMs. Attempt at colonoscopy yesterday possible due to retained fecal material dark melanotic stool. Subjective Patient is an 89 yo with HTN, valvular heart disease (trace MR/TR), COPD, pulmonary nodule, hypertension, gastritis/duodenitis/diverticulosis, pancreatitis, BPH, chronic anemia (baseline hemoglobin of 12), dementia as per family, past tobacco/alcohol abuse who presented to the ED from his long-term due to rectal bleeding. He's seen today on daily rounds. He denies any active bleeding, abdominal pain, N/V/D, melena or hematochezia. Initial CTA abd/pelvis 05/24/25 revealed extravasation at anorectal junction. F/U CTA abd/pelvis 05/26/25and Nuclear medicine 05/27/25 scan were negative for active bleeding. 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 No bleeding on contact not the source for gastrointestinal blood loss. However may signify AVMs elsewhere in the intestines. Colonoscopy 05/28/25 - Could not be completed adequately due to extremely poor preparation and 0 visibility. Unfortunately we have had no luck having this patient drink a colon preparation. Tapwater enemas will be insufficient in this gentleman to allow adequate visualization. Pertinent Diagnostics Hgb 7.4g/dl (down from 8.1 yesterday) EGD and Colonoscopy findings as noted above. Review of Systems Review of Systems: See HPI Physical Exam Physical Exam: Constitutional: NAD. Alert. Answering questions appropriately. Respiratory: Breathing is even, non-labored. Lungs walker are clear to auscu ltation anteriorly. Cardiovascular: Regular Rate and Rhythm, no murmurs, rubs or gallops appreciated. Gastrointestinal (Abdomen): Normoactive bowel sounds x4, soft, non-distended, non-tender. Musculoskeletal: Lying in bed comfortably. No peripheral edema. Results & Data Results & Data Vital Signs (Past 12 Hours) Vital Signs Temp Pulse Pulse Pulse Resp BP Pulse Ox 05/29/25 10:43 05/29/25 08:46 63 05/29/25 07:37 97.8 F 63 18 106/61 96 05/29/25 04:39 97.9 F 72 20 123/65 94 O2 Del Method 05/29/25 10:43 Room Air 05/29/25 08:46 05/29/25 07:37 Room Air 05/29/25 04:39 Room Air PG Care Time/CCT Total # of Minutes Spent Total Time Spent with Patient: Total time spent is greater than 50% in coordination of care (as documented) at patient's floor/unit and/or counseling patient: Coding Level of Care Code 31558 SUB INP/OBS CARE 3/50MIN Diagnoses GI bleed K92.2
--- NOTE | 2025-05-29 16:35 | Hospitalist Progress Note ---
Date of Service May 29, 2025 Assessment & Plan (1) GI bleed: (2) Acute blood loss anemia: Plan: 89 yo male with pmhx of HTN, valvular heart disease (trace MR/TR), COPD, pulmonary nodule, hypertension, gastritis/duodenitis/diverticulosis, pancreatitis, BPH, chronic anemia (baseline hemoglobin of 12), dementia as per family, past tobacco/alcohol abuse who presented to the ED from his retirement due to rectal bleeding likely 2/2 AVMs vs. diverticular disease or bleed of lower GI origin. GI bleed, Melena and Hematochezia -history gastritis/duodenitis/diverticulosis 2023 -GI consulted, suspected diverticular bleed, recommended supportive care -initial CT angiogram showing extravasation of contrast in the rectosigmoid junction -subsequent CT angiogram and nuclear med scan showing no active GI bleed -source likely AVMs given EGD, flex sig inadequate prp Plan: -continue protonix -monitor Hgb one more day -GI consult, appreciate recs, discussed case personally with GI -if drop in Hgb tomorrow, will need GOC discussion with son and patient as bleed likely to be fatal over weeks to months even if it stops acutely -discussed with son as well Acute on Chronic anemia Acute blood loss anemia secondary to above Iron deficiency anemia -Hg seems to have plateaued at ~8 -has not required blood transfusion -iron level less than 10, Venofer given other chronic medical problems: valvular heart disease (trace MR/TR) COPD, not in acute exacerbation pulmonary nodule, possible malignancy, patient refused workup as per last outpatient [facility] pulmonology visit from 2020 dementia as per family past tobacco/alcohol abuse I spent a total of 50 minutes in direct patient care, including [id number] time with the patient and/or family, reviewing medical records, ordering and reviewing diagnostic tests, and coordinating care with other healthcare providers. This time includes: history taking, physical examination, medical decision making, counseling, ECG interpretation, imaging interpretation, lab interpretation, orders, and education, excluding time spent in the performance of separately billed services. Plan Underweight with BMI 17.9 Admission and Anticipated Discharge Date Admission Date: May 24, 2025 Subjective Patient seen and examined at bedside. Patient doing well today. He states the bleeding has stopped and he would like to go home. He strongly does not want to do colonoscopy prep. Review of Systems Review of Systems: CONSTITUTIONAL: Patient denies fevers, chills, sweats and weight changes. EYES: Patient denies any visual symptoms. EARS, NOSE, AND THROAT: No difficulties with hearing. No symptoms of rhinitis or sore throat. CARDIOVASCULAR: Patient denies chest pains, palpitations, orthopnea and paroxysmal nocturnal dyspnea. RESPIRATORY: No dyspnea on exertion, no wheezing or cough. GI: No nausea, vomiting, diarrhea, constipation, abdominal pain, hematochezia or melena. : No urinary hesitancy or dribbling. No nocturia or urinary frequency. No abnormal urethral discharge. MUSCULOSKELETAL: No myalgias or arthralgias. NEUROLOGIC: No chronic headaches, no seizures. Patient denies numbness, tingling or weakness. PSYCHIATRIC: Patient denies problems with mood disturbance. No problems with anxiety. ENDOCRINE: No excessive urination or excessive thirst. DERMATOLOGIC: Patient denies any rashes or skin changes. Physical Exam Physical Exam: Gen: A&O 3 NAD, significant sarcopenia noted HEENT: NCAT, EOMI, not icteric. External ears normal. No rhinorrhea. Moist mucous membranes. Neck: Supple, full range of motion, no observable masses, No meningeal sign. Lungs: No Respiratory distress. CV: RRR, no edema. Abdomen: Soft, nondistended, No rebound tenderness. MSK: No joint swelling, no redness. Skin: No rashes, petechiae, lesions. Normal color per patient. Neuro: Normal Gait, Grossly intact. Psych: Appropriate for situation. Results & Data Results & Data Vital Signs (Past 12 Hours) Vital Signs Temp Pulse Pulse Pulse Resp BP BP 05/29/25 15:17 36.6 C 63 18 114/59 L 05/29/25 10:43 05/29/25 08:46 63 05/29/25 07:37 36.6 C 63 18 106/61 05/29/25 04:39 36.6 C 72 20 123/65 Pulse Ox O2 Del Method 05/29/25 15:17 92 Room Air 05/29/25 10:43 Room Air 05/29/25 08:46 05/29/25 07:37 96 Room Air 05/29/25 04:39 94 Room Air Laboratory Results -personally reviewed, Hgb slightly lower than yesterday but around baseline, creatinine at baseline Medications Administered Acetaminophen (Acetaminophen 500 Mg Tab) 1,000 mg PO BID LOUIS Stop: 06/23/25 08:59 Last Admin: 05/29/25 08:40 Dose: Not Given Documented By: Admin: 05/28/25 20:37 Dose: 1,000 mg Documented By: Admin: 05/28/25 08:45 Dose: Not Given Documented By: Admin: 05/27/25 22:07 Dose: 1,000 mg Documented By: Admin: 05/27/25 08:25 Dose: 1,000 mg Documented By: Admin: 05/26/25 20:11 Dose: 1,000 mg Documented By: Admin: 05/26/25 08:50 Dose: 1,000 mg Documented By: Admin: 05/25/25 20:29 Dose: 1,000 mg Documented By: Admin: 05/25/25 09:26 Dose: 1,000 mg Documented By: Admin: 05/24/25 19:37 Dose: 1,000 mg Documented By: Admin: 05/24/25 10:33 Dose: 1,000 mg Documented By: AURA Acetaminophen (Acetaminophen 325 Mg Tab) 325 mg PO QID PRN PRN Reason: pain/fever Stop: 06/23/25 02:47 Last Admin: 05/29/25 10:34 Dose: 325 mg Documented By: Admin: 05/27/25 05:38 Dose: 325 mg Documented By: Admin: 05/25/25 01:13 Dose: 325 mg Documented By: MG Cyanocobalamin (Cyanocobalamin (B-12) 500 Mcg Tablet) 1,000 mcg PO DAILY L[place]IS Stop: 06/23/25 08:59 Last Admin: 05/29/25 08:41 Dose: 1,000 mcg Documented By: Admin: 05/28/25 08:43 Dose: 1,000 mcg Documented By: Admin: 05/27/25 08:25 Dose: 1,000 mcg Documented By: Admin: 05/26/25 08:48 Dose: 1,000 mcg Documented By: Admin: 05/25/25 09:26 Dose: 1,000 mcg Documented By: Admin: 05/24/25 10:34 Dose: 1,000 mcg Documented By: AURA Pantoprazole Sodium 40 mg/ (Dextrose) 100 mls @ 20 mls/hr IV Q5H [place] Stop: 06/23/25 10:44 Last Admin: 05/29/25 13:51 Dose: 8 mg/hr, 20 mls/hr Documented By: Infusion: 05/29/25 13:38 Dose: Infused Documented By: Admin: 05/29/25 08:38 Dose: 8 mg/hr, 20 mls/hr Documented By: Infusion: 05/29/25 08:36 Dose: Infused Documented By: Admin: 05/29/25 03:36 Dose: 8 mg/hr, 20 mls/hr Documented By: Infusion: 05/29/25 03:36 Dose: Infused Documented By: Admin: 05/28/25 22:26 Dose: 8 mg/hr, 20 mls/hr Documented By: Infusion: 05/28/25 22:26 Dose: Infused Documented By: Admin: 05/28/25 18:00 Dose: 8 mg/hr, 20 mls/hr Documented By: Infusion: 05/28/25 18:00 Dose: Infused Documented By: Admin: 05/28/25 14:07 Dose: 8 mg/hr, 20 mls/hr Documented By: Infusion: 05/28/25 13:35 Dose: Infused Documented By: Admin: 05/28/25 08:35 Dose: 8 mg/hr, 20 mls/hr Documented By: Infusion: 05/28/25 07:59 Dose: Infused Documented By: Admin: 05/28/25 02:59 Dose: 8 mg/hr, 20 mls/hr Documented By: Infusion: 05/28/25 02:59 Dose: Infused Documented By: Admin: 05/27/25 21:59 Dose: 8 mg/hr, 20 mls/hr Documented By: Infusion: 05/27/25 21:40 Dose: Infused Documented By: Admin: 05/27/25 16:40 Dose: 8 mg/hr, 20 mls/hr Documented By: TLDanny Infusion: 05/27/25 15:45 Dose: Infused Documented By: Admin: 05/27/25 10:45 Dose: 8 mg/hr, 20 mls/hr Documented By: Infusion: 05/27/25 09:38 Dose: Infused Documented By: Admin: 05/27/25 04:38 Dose: 8 mg/hr, 20 mls/hr Documented By: Infusion: 05/27/25 04:32 Dose: Infused Documented By: Admin: 05/26/25 23:32 Dose: 8 mg/hr, 20 mls/hr Documented By: Infusion: 05/26/25 23:29 Dose: Infused Documented By: Admin: 05/26/25 18:29 Dose: 8 mg/hr, 20 mls/hr Documented By: Infusion: 05/26/25 18:29 Dose: Infused Documented By: Admin: 05/26/25 14:11 Dose: 8 mg/hr, 20 mls/hr Documented By: Infusion: 05/26/25 13:47 Dose: Infused Documented By: Admin: 05/26/25 08:47 Dose: 8 mg/hr, 20 mls/hr Documented By: Infusion: 05/26/25 08:13 Dose: Infused Documented By: Admin: 05/26/25 03:13 Dose: 8 mg/hr, 20 mls/hr Documented By: Infusion: 05/26/25 02:56 Dose: Infused Documented By: Admin: 05/25/25 21:56 Dose: 8 mg/hr, 20 mls/hr Documented By: Infusion: 05/25/25 21:56 Dose: Infused Documented By: Admin: 05/25/25 16:58 Dose: 8 mg/hr, 20 mls/hr Documented By: Infusion: 05/25/25 16:58 Dose: Infused Documented By: Admin: 05/25/25 12:55 Dose: 8 mg/hr, 20 mls/hr Documented By: Infusion: 05/25/25 12:55 Dose: Infused Documented By: Admin: 05/25/25 08:40 Dose: 8 mg/hr, 20 mls/hr Documented By: Infusion: 05/25/25 08:37 Dose: Infused Documented By: Admin: 05/25/25 03:37 Dose: 8 mg/hr, 20 mls/hr Documented By: Infusion: 05/25/25 03:37 Dose: Infused Documented By: Admin: 05/24/25 22:48 Dose: 8 mg/hr, 20 mls/hr Documented By: Infusion: 05/24/25 22:24 Dose: Infused Documented By: Admin: 05/24/25 17:24 Dose: 8 mg/hr, 20 mls/hr Documented By: Infusion: 05/24/25 15:55 Dose: Infused Documented By: Admin: 05/24/25 10:55 Dose: 8 mg/hr, 20 mls/hr Documented By: KBB Latanoprost (Latanoprost 0.005% Op Soln 2.5 Ml Btl) 1 drops OPB HS [place] Stop: 06/23/25 20:59 Last Admin: 05/28/25 20:38 Dose: 1 drops Documented By: Admin: 05/27/25 22:02 Dose: 1 drops Documented By: Admin: 05/26/25 20:12 Dose: 1 drops Documented By: Admin: 05/25/25 20:29 Dose: 1 drops Documented By: Admin: 05/24/25 19:37 Dose: 1 drops Documented By: MG Tamsulosin HCl (Tamsulosin Hcl 0.4 Mg Cap) 0.8 mg PO HS [place] Stop: 06/23/25 20:59 Last Admin: 05/28/25 20:38 Dose: 0.8 mg Documented By: Admin: 05/27/25 22:03 Dose: 0.8 mg Documented By: Admin: 05/26/25 21:13 Dose: 0.8 mg Documented By: [facility] Admin: 05/25/25 20:29 Dose: 0.8 mg Documented By: Admin: 05/24/25 19:36 Dose: 0.8 mg Documented By: MG Tramadol HCl (Tramadol Hcl 50 Mg Tablet) 50 mg PO Q8H PRN PRN Reason: moderate to severe pain Stop: 06/23/25 10:03 Last Admin: 05/26/25 06:56 Dose: 50 mg Documented By: Admin: 05/25/25 03:36 Dose: 50 mg Documented By: Admin: 05/24/25 19:36 Dose: 50 mg Documented By: MG Vitamin D (Cholecalciferol 25 Mcg (1000 Units) Tab) 50 mcg PO QAM [place] Stop: 06/23/25 08:59 Last Admin: 05/29/25 08:41 Dose: 50 mcg Documented By: Admin: 05/28/25 08:43 Dose: 50 mcg Documented By: Admin: 05/27/25 08:25 Dose: 50 mcg Documented By: Admin: 05/26/25 08:47 Dose: 50 mcg Documented By: Admin: 05/25/25 09:26 Dose: 50 mcg Documented By: Admin: 05/24/25 10:34 Dose: 50 mcg Documented By: AURA
[2025-05-30 06:30] LABS: Hematocrit (blood only) 22.1 % (42.0-52.0); Hemoglobin 7.4 g/dL (14.0-18.0); Mean Corpuscular Hemoglobin 32.7 pg (25.0-34.0); Mean Corpuscular Volume 97.8 fL (80.0-100.0); Platelet Count 263 K/uL (130-400); RDW Standard Deviation 53.9 fL (36.4-46.3); Red Blood Count 2.26 M/uL (4.70-6.10); White Blood Count 14.46 K/ul (4.8-10.8)
[2025-05-30 07:15] LABS: Immature Granulocytes # (auto) 0.07 K/uL (0.01-0.20); Immature Granulocytes % (auto) 0.5 %; Polychromasia 1+
[2025-05-30 07:18] LABS: Anion Gap 5.0 (3-11); Calcium 8.8 mg/dl (8.6-10.3); Carbon Dioxide 27.0 mmol/L (21-32); Chloride 108.0 mmol/L (98-107); Potassium 3.7 mmol/L (3.5-5.1); Sodium 140.0 mmol/L (136-145)
[2025-05-30 07:24] LABS: Blood Urea Nitrogen 14.0 mg/dl (6-23); Creatinine Clr Calc Pharmacy 68.7 ml/min; Glucose 107.0 mg/dl (70-99(Fasting))
--- NOTE | 2025-05-30 10:37 | Gastroenterology Progress Note ---
Date of Service May 30, 2025 Assessment & Plan (1) Rectal bleeding: Plan: - continue to monitor hgb/hct. transfuse as needed. - will continue to monitor. - Further recommendations to come with Supervising GI provider on medical rounds. Please see co-signature comments. Admission and Anticipated Discharge Date Admission Date: May 24, 2025 Supervising Physician Co-Signing Physician Notes Count stable. No further GI investigations planned. Transfuse as needed. GI signed off, will see as needed Subjective Patient is an 89 year old male with HTN, valvular heart disease (trace MR/TR), COPD, pulmonary nodule, hypertension, gastritis/duodenitis/diverticulosis, pancreatitis, BPH, chronic anemia (baseline hemoglobin of 12), dementia as per family, past tobacco/alcohol abuse who presented to the ED from his [facility] due to rectal bleeding. Initial CTA revealed focus consistent with acute GI bleed in anorectal junction. F/U CTA 05/26 and Nuclear medicine scan negative on 05/27/25 negative. We were unable to visualize any active bleeding d/t poor prep (declined colonoscopy prep). Tap water enemas were ineffective. pt declining further prepping. hgb stable today at 7.4. no blood noted per patient but chart notes dark pasty stool overnight. patient lethargic and does not offer much history. Review of Systems Review of Systems: Unobtainable due to cognitive status Physical Exam Constitutional: WD/WN, vitals as above Respiratory: normal respiratory effort, lungs clear to auscultation Cardiovascular: Rate/Rhythm: regular rate and regular rhythm Gastrointestinal (Abdomen): normal bowel sounds, soft, nontender, no hepatosplenomegaly Psychiatric: lethargic Results & Data Results & Data Vital Signs (Past 12 Hours) Vital Signs Temp Pulse Resp BP BP Pulse Ox O2 Del Method 05/30/25 07:41 97.9 F 72 105/58 L 93 Room Air 05/29/25 22:50 98.6 F 77 16 103/57 L 91 Room Air Coding Level of Care Code 98960 SUB INP/OBS CARE 08/04MIN Diagnoses Rectal bleeding K62.5
--- NOTE | 2025-05-30 15:20 | Hospitalist Progress Note ---
Date of Service May 30, 2025 Assessment & Plan (1) GI bleed: (2) Acute blood loss anemia: Plan: 89 yo male with pmhx of HTN, valvular heart disease (trace MR/TR), COPD, pulmonary nodule, hypertension, gastritis/duodenitis/diverticulosis, pancreatitis, BPH, chronic anemia (baseline hemoglobin of 12), dementia as per family, past tobacco/alcohol abuse who [facility] due to rectal bleeding likely 2/2 AVMs vs. diverticular disease or bleed of lower GI origin. #GI bleed, Melena and Hematochezia -history gastritis/duodenitis/diverticulosis 2023 -GI consulted, suspected diverticular bleed, recommended supportive care -initial CT angiogram showing extravasation of contrast in the rectosigmoid junction -subsequent CT angiogram and nuclear med scan showing no active GI bleed -source likely AVMs given EGD, flex sig inadequate prp Plan: -continue protonix -continue to trend Hgb -GI consult, appreciate recs, discussed case personally with GI -no discharge today given new leukocytosis and drowsiness #Leukocytosis -unclear etiology -no localizing symptoms, no hemodynamic changes -fatigued Plan: -check UA, chest xray Acute on Chronic anemia Acute blood loss anemia secondary to above Iron deficiency anemia -Hg seems to have plateaued at ~8 -has not required blood transfusion -iron level less than 10, Venofer given other chronic medical problems: valvular heart disease (trace MR/TR) COPD, not in acute exacerbation pulmonary nodule, possible malignancy, patient refused workup as per last outpatient [facility] pulmonology visit from 2020 dementia as per family past tobacco/alcohol abuse I spent a total of 50 minutes in direct patient care, including [id number] time with the patient and/or family, reviewing medical records, ordering and reviewing diagnostic tests, and coordinating care with other healthcare providers. This time includes: history taking, physical examination, medical decision making, counseling, ECG interpretation, imaging interpretation, lab interpretation, orders, and education, excluding time spent in the performance of separately billed services. Plan Underweight with BMI 17.9 Admission and Anticipated Discharge Date Admission Date: May 24, 2025 Subjective Patient seen and examined at bedside. Patient states he feels the same as yesterday. Continues to be fatigued. States he just wants to sleep. Review of Systems Review of Systems: CONSTITUTIONAL: fatigued EYES: Patient denies any visual symptoms. EARS, NOSE, AND THROAT: No difficulties with hearing. No symptoms of rhinitis or sore throat. CARDIOVASCULAR: Patient denies chest pains, palpitations, orthopnea and paroxysmal nocturnal dyspnea. RESPIRATORY: No dyspnea on exertion, no wheezing or cough. GI: No nausea, vomiting, diarrhea, constipation, abdominal pain, hematochezia or melena. : No urinary hesitancy or dribbling. No nocturia or urinary frequency. No abnormal urethral discharge. MUSCULOSKELETAL: No myalgias or arthralgias. NEUROLOGIC: No chronic headaches, no seizures. Patient denies numbness, tingling or weakness. PSYCHIATRIC: Patient denies problems with mood disturbance. No problems with anxiety. ENDOCRINE: No excessive urination or excessive thirst. DERMATOLOGIC: Patient denies any rashes or skin changes. Physical Exam Physical Exam: Gen: A&O 3 NAD, significant sarcopenia noted, drowsy today HEENT: NCAT, EOMI, not icteric. External ears normal. No rhinorrhea. Moist mucous membranes. Neck: Supple, full range of motion, no observable masses, No meningeal sign. Lungs: No Respiratory distress. CV: RRR, no edema. Abdomen: Soft, nondistended, No rebound tenderness. MSK: No joint swelling, no redness. Skin: No rashes, petechiae, lesions. Normal color per patient. Neuro: Normal Gait, Grossly intact. Psych: Appropriate for situation. Results & Data Results & Data Vital Signs (Past 12 Hours) Vital Signs Temp Pulse BP BP Pulse Ox O2 Del Method O2 Flow Rate 05/30/25 15:17 36.9 C 63 97/51 L 89/49 L 93 Nasal Cannula 1 05/30/25 07:41 36.6 C 72 105/58 L 93 Room Air Laboratory Results -personally reviewed, leukocytosis much higher than prior unknown etiology, creatinine at baseline Medications Administered Acetaminophen (Acetaminophen 500 Mg Tab) 1,000 mg PO BID [facility] Stop: 06/23/25 08:59 Last Admin: 05/30/25 08:30 Dose: 1,000 mg Documented By: Admin: 05/29/25 19:33 Dose: 1,000 mg Documented By: Admin: 05/29/25 08:40 Dose: Not Given Documented By: Admin: 05/28/25 20:37 Dose: 1,000 mg Documented By: Admin: 05/28/25 08:45 Dose: Not Given Documented By: Admin: 05/27/25 22:07 Dose: 1,000 mg Documented By: Admin: 05/27/25 08:25 Dose: 1,000 mg Documented By: Admin: 05/26/25 20:11 Dose: 1,000 mg Documented By: Admin: 05/26/25 08:50 Dose: 1,000 mg Documented By: Admin: 05/25/25 20:29 Dose: 1,000 mg Documented By: Admin: 05/25/25 09:26 Dose: 1,000 mg Documented By: Admin: 05/24/25 19:37 Dose: 1,000 mg Documented By: Admin: 05/24/25 10:33 Dose: 1,000 mg Documented By: AURA Acetaminophen (Acetaminophen 325 Mg Tab) 325 mg PO QID PRN PRN Reason: pain/fever Stop: 06/23/25 02:47 Last Admin: 05/29/25 10:34 Dose: 325 mg Documented By: Admin: 05/27/25 05:38 Dose: 325 mg Documented By: Admin: 05/25/25 01:13 Dose: 325 mg Documented By: MG Cyanocobalamin (Cyanocobalamin (B-12) 500 Mcg Tablet) 1,000 mcg PO DAILY [facility] Stop: 06/23/25 08:59 Last Admin: 05/30/25 08:27 Dose: 1,000 mcg Documented By: Admin: 05/29/25 08:41 Dose: 1,000 mcg Documented By: Admin: 05/28/25 08:43 Dose: 1,000 mcg Documented By: Admin: 05/27/25 08:25 Dose: 1,000 mcg Documented By: Admin: 05/26/25 08:48 Dose: 1,000 mcg Documented By: Admin: 05/25/25 09:26 Dose: 1,000 mcg Documented By: Admin: 05/24/25 10:34 Dose: 1,000 mcg Documented By: AURA Latanoprost (Latanoprost 0.005% Op Soln 2.5 Ml Btl) 1 drops OPB HS [facility] Stop: 06/23/25 20:59 Last Admin: 05/29/25 19:34 Dose: 1 drops Documented By: Admin: 05/28/25 20:38 Dose: 1 drops Documented By: Admin: 05/27/25 22:02 Dose: 1 drops Documented By: Admin: 05/26/25 20:12 Dose: 1 drops Documented By: Admin: 05/25/25 20:29 Dose: 1 drops Documented By: Admin: 05/24/25 19:37 Dose: 1 drops Documented By: MG Tamsulosin HCl (Tamsulosin Hcl 0.4 Mg Cap) 0.8 mg PO HS [facility] Stop: 06/23/25 20:59 Last Admin: 05/29/25 19:34 Dose: 0.8 mg Documented By: Admin: 05/28/25 20:38 Dose: 0.8 mg Documented By: Admin: 05/27/25 22:03 Dose: 0.8 mg Documented By: Admin: 05/26/25 21:13 Dose: 0.8 mg Documented By: Admin: 05/25/25 20:29 Dose: 0.8 mg Documented By: Admin: 05/24/25 19:36 Dose: 0.8 mg Documented By: MG Tramadol HCl (Tramadol Hcl 50 Mg Tablet) 50 mg PO Q8H PRN PRN Reason: moderate to severe pain Stop: 06/23/25 10:03 Last Admin: 05/26/25 06:56 Dose: 50 mg Documented By: Admin: 05/25/25 03:36 Dose: 50 mg Documented By: Admin: 05/24/25 19:36 Dose: 50 mg Documented By: MG Vitamin D (Cholecalciferol 25 Mcg (1000 Units) Tab) 50 mcg PO QAM [facility] Stop: 06/23/25 08:59 Last Admin: 05/30/25 08:27 Dose: 50 mcg Documented By: Admin: 05/29/25 08:41 Dose: 50 mcg Documented By: Admin: 05/28/25 08:43 Dose: 50 mcg Documented By: Admin: 05/27/25 08:25 Dose: 50 mcg Documented By: Admin: 05/26/25 08:47 Dose: 50 mcg Documented By: Admin: 05/25/25 09:26 Dose: 50 mcg Documented By: Admin: 05/24/25 10:34 Dose: 50 mcg Documented By: AURA
--- NOTE | 2025-05-30 15:23 | XRay Report ---
XR chest 1V portable CLINICAL HISTORY: leukocytosis unknown etiology COMPARISON STUDY: 01/01/2025 FINDINGS: Stable cardiomegaly without pulmonary vascular congestion. There is interval faint reticula r and patchy opacity in the lung bases. No pleural effusion or pneumothorax. IMPRESSION: Lung base pneumonia. ACT 112: Negative or not required by law. Electronically signed by: Prasanth Armijo M.D. 05/30/2025 3:22 PM
[2025-05-30] MEDS: AZITHROMYCIN 500 MG/255 ML BAG IV SCH (18:48)
[2025-05-30] MEDS: cefTRIAXone SODIUM 2,000 MG/50 ML BAG IV SCH (21:37)
[2025-05-30 22:11] LABS: Appearance Urine Clear (Clear); Bacteria Urine Automated None Seen (None Seen); Cast Urine Automated 0-2 /lpf (0-2); Epithelial Cell Urine Auto 0-2 /hpf (0-2); Glucose Urine UA Negative (Negative); WBC Urine Automated >50 /hpf (0-5)
[2025-05-30 23:58] VITALS: RESP 18
[2025-05-31 08:02] VITALS: TEMP 97.5; O2SAT 97
[2025-05-31 08:58] LABS: Chlamydia pneumoniae PCR Not Detected (NotDetected); Coronavirus 229E PCR Not Detected (NotDetected); Coronavirus CoV-2 (COVID19)PCR Not Detected (NotDetected); Coronavirus HKU1 PCR Not Detected (NotDetected); Coronavirus NL63 PCR Not Detected (NotDetected); Coronavirus OC43PCR Not Detected (NotDetected); Human Metapneumovirus PCR Not Detected (NotDetected); Parainfluenza Virus 1 PCR Not Detected (NotDetected); Parainfluenza Virus 2 PCR Not Detected (NotDetected); Parainfluenza Virus 3 PCR Not Detected (NotDetected); Parainfluenza Virus 4 PCR Not Detected (NotDetected); Respiratory Syncytial VirusPCR Not Detected (NotDetected); Rhinovirus/Enterovirus PCR Not Detected (NotDetected)
[2025-05-31 08:58] LABS: Hematocrit (blood only) 24.1 % (42.0-52.0); Hemoglobin 8.0 g/dL (14.0-18.0); Immature Granulocytes # (auto) 0.04 K/uL (0.01-0.20); Immature Granulocytes % (auto) 0.5 %; Mean Corpuscular Hemoglobin 32.5 pg (25.0-34.0); Mean Corpuscular Volume 98.0 fL (80.0-100.0); Platelet Count 297 K/uL (130-400); RDW Standard Deviation 55.8 fL (36.4-46.3); Red Blood Count 2.46 M/uL (4.70-6.10); White Blood Count 7.85 K/ul (4.8-10.8)
[2025-05-31 09:16] LABS: Anion Gap 5.0 (3-11); Blood Urea Nitrogen 17.0 mg/dl (6-23); Calcium 8.6 mg/dl (8.6-10.3); Carbon Dioxide 28.0 mmol/L (21-32); Chloride 108.0 mmol/L (98-107); Creatinine Clr Calc Pharmacy 78.1 ml/min; Glucose 145.0 mg/dl (70-99(Fasting)); Potassium 3.2 mmol/L (3.5-5.1); Sodium 141.0 mmol/L (136-145)
[2025-05-31 13:26] VITALS: BP 89/49; PULSE 72
--- NOTE | 2025-05-31 14:52 | Discharge Summary ---
Discharge Summary Date of Service May 31, 2025 Principal Dx & Hospital Course #1 = Principal Diagnosis (1) GI bleed: (2) Acute blood loss anemia: 89 yo male with pmhx of HTN, valvular heart disease (trace MR/TR), COPD, pulmonary nodule, hypertension, gastritis/duodenitis/diverticulosis, pancreatitis, BPH, chronic anemia (baseline hemoglobin of 12), dementia as per family, past tobacco/alcohol abuse who [facility] bleeding likely 2/2 AVMs vs. diverticular disease or bleed of lower GI origin. #GI bleed, Melena and Hematochezia -history gastritis/duodenitis/diverticulosis 2023 -GI consulted, suspected diverticular bleed, recommended supportive care -initial CT angiogram showing extravasation of contrast in the rectosigmoid junction -subsequent CT angiogram and nuclear med scan showing no active GI bleed -source likely AVMs given EGD, flex sig inadequate prp Plan: -continue protonix -continue to trend Hgb -GI consult, appreciate recs, discussed case personally with GI #CAP -continue abx Acute on Chronic anemia Acute blood loss anemia secondary to above Iron deficiency anemia -Hg seems to have plateaued at ~8 -has not required blood transfusion -iron level less than 10, Venofer given other chronic medical problems: valvular heart disease (trace MR/TR) COPD, not in acute exacerbation pulmonary nodule, possible malignancy, patient refused workup as per last outpatient [facility] pulmonology visit from 2020 dementia as per family past tobacco/alcohol abuse Notes For Next Care Provider 89 yo male with pmhx of HTN, valvular heart disease (trace MR/TR), COPD, pulmonary nodule, hypertension, gastritis/duodenitis/diverticulosis, pancreatitis, BPH, chronic anemia (baseline hemoglobin of 12), dementia as per family, past tobacco/alcohol abuse who [facility] due to rectal bleeding likely 2/2 AVMs vs. diverticular disease or bleed of lower GI origin. On medicine, GI consulted, performed EGD and flex sign, AVM noted on EGD but unable to get visualization of colon due to no prep. Patient declined doing bowel prep. Hgb stabilized. Noted to have leukocytosis, infiltrates on xray, started on abx for CAP. On 05/31/2025 patient medically stable for discharge back to personal care. To do: -Incidental Findings: concerning pulmonary nodule, left renal artery stenosis, severe aortic calcifications, emphysema, cardiomegaly Medication Changes From Visit -see below Admission HPI Per Admitting Provider History obtained from patient, family, and records. Limited history from patient secondary to dementia. Medical history significant for HTN, valvular heart disease (trace MR/TR), COPD, pulmonary nodule, hypertension, gastritis/duodenitis/diverticulosis, pancreatitis, BPH, chronic anemia (baseline hemoglobin of 12), dementia as per family, past tobacco/alcohol abuse as per records. Last confinement December 2024 for rectal bleeding suspected to be diverticular in nature given extensive colonic diverticulosis on imaging. Patient evaluated at [facility] ER 2 days ago as per son due to some arm swelling. Patient noted to have black tarry followed by bloody stool at personal care facility yesterday. Patient denies abdominal pain. Usual back pain complaint. Patient brought to ER for evaluation. 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 External ears normal. No rhinorrhea. Moist mucous membranes. Neck: Supple, full range of motion, no observable masses, No meningeal sign. Lungs: No Respiratory distress. CV: RRR, no edema. Abdomen: Soft, nondistended, No rebound tenderness. MSK: No joint swelling, no redness. Skin: No rashes, petechiae, lesions. Normal color per patient. Neuro: Normal Gait, Grossly intact. Psych: Appropriate for situation. Updated Medication List Medication Instructions Recorded Confirmed Type tamsulosin 0.4 mg capsule (Flomax) 0.8 mg PO HS 11/11/18 05/24/25 History cholecalciferol (vitamin D3) 50 50 mcg PO QAM 04/24/21 05/24/25 History mcg (2,000 unit) capsule (Vitamin D3) acetaminophen 325 mg tablet 650 mg PO Q6H PRN TEMP>100 05/13/23 05/24/25 History (Tylenol) acetaminophen 500 mg tablet 1,000 mg PO BID 05/13/23 05/24/25 History polyethylene glycol 3350 17 gram 17 g PO QAM PRN Constipation 05/13/23 05/24/25 History oral powder packet (Miralax) Prevagen 1 tab PO DAILY 07/04/24 05/24/25 History latanoprost 0.005 % eye drops 1 drp OPB HS 07/04/24 05/24/25 History acetaminophen 325 mg tablet 650 mg PO Q6 PRN Pain 01/01/25 05/24/25 History pantoprazole 40 mg tablet,delayed 40 mg PO QAM gastric erosions 01/01/25 05/24/25 History release (Protonix) cyanocobalamin (vitamin B-12) 1,000 mcg PO DAILY 05/24/25 05/24/25 History 1,000 mcg tablet (Vitamin B-12) loperamide 2 mg capsule 2 mg PO QAM 05/24/25 05/24/25 History amoxicillin 500 mg-potassium 1 tab PO BID 5 days #10 tabs 05/31/25 Rx clavulanate 125 mg tablet (Augmentin) azithromycin 500 mg tablet 500 mg PO DAILY 5 days #5 tabs 05/31/25 Rx Hospital Stay Data Consultations 05/24/25 00:35 ED Decision to Admit Stat 05/24/25 06:33 Consult Gastroenterology Routine Procedures Performed Operation Date: 05/28/25 17:25 Actual Procedures p Esophagogastroduodenoscopy - Erickson Vernon MD s Flexible Sigmoidoscopy - Erickson Vernon MD Diagnostic Imagining Performed 05/24/25 14:11 CTA abd pelvis wo/w con [CT angio abd pelvis wo/w con] Routine 05/26/25 11:05 CT angio abdomen pelvis w con Urgent Pending Results Patient Have Any Pending Studies at Discharge: No Discharge Instructions Given to Patient (Per Discharging Provider) Diagnosis: Acute Blood Loss Anemia, AVMs as cause of bleed, CAP, UTI Incidental Findings: concerning pulmonary nodule, left renal artery stenosis, severe aortic calcifications, emphysema, cardiomegaly Follow Ups: PCP, drainage design coordinator (for lung nodule) 1. Follow up with PCP, pulmonology (for lung nodule). 2. Stay hydrated! Total Time Total Time Spent Total Time Spent (In Minutes): I spent a total of 35 minutes in direct patient care, including [id number] time with the patient and/or family, reviewing medical records, ordering and reviewing diagnostic tests, and coordinating care with other healthcare providers. This time includes: history taking, physical examination, medical decision making, counseling, ECG interpretation, imaging interpretation, lab interpretation, orders, and education, excluding time spent in the performance of separately billed services.
== END 2025-05-31 15:09 | disposition home or self-care (01) | DRG 377 ==
LOC: 2W 22:16 → ED 22:16 → 2W 05-24 02:25 → SUATTDRO 05-24 10:07 → 2W 05-30 20:05